=== PATIENT | male | born 1975 | race Two or more races ===

== ENCOUNTER 2023-12-24 20:19 | Inpatient (IN) | payer MEDICAID, OTHER ==
[~2023-12-24] VITALS: Ht 170.2 cm; Wt 100.2 kg
[2023-12-24 21:16] LABS: Basophils # (auto) 0.1 10 ^3/uL (0-0.2); Basophils % (auto) 1.4 % (0.0-2.0); Eosinophils # (auto) 0.1 10 ^3/uL (0-0.8); Eosinophils % (auto) 1.3 % (0.0-7.0); Hemoglobin 16.1 g/dL (13.5-17.5); Lymphocytes # (auto) 2.5 10 ^3/uL (0.4-5.4); Lymphocytes % (auto) 24.7 % (10.0-50.0); Mean Corpuscular Hemoglobin 31.4 pg (28.0-32.0); Mean Corpuscular Hgb Conc. 35.7 g/dL (32.0-36.0); Mean Corpuscular Volume 88.1 fL (80.0-100.0); Monocytes % (auto) 10.4 % (0.0-12.0); Neutrophils # (auto) 6.2 10 ^3/uL (1.6-8.6); Neutrophils % (auto) 62.2 % (37.0-80.0); Nucleated Red Blood Cells % 0.1 %; Platelet Count (auto) 318 10^3/uL (140-450); Red Blood Cells 5.11 10^6/uL (4.5-5.90); White Blood Cell 9.9 10^3/uL (4.4-10.8)
[2023-12-24 21:28] LABS: Chloride 101 mmol/L (98-107); Potassium 4.1 mmol/L (3.5-5.1); Sodium 133 mmol/L (136-145)
[2023-12-24 21:29] LABS: Anion Gap 8 (5-15); Carbon Dioxide 24 mmol/L (20-31)
[2023-12-24 21:30] LABS: Calcium 9.6 mg/dL (8.7-10.4)
[2023-12-24 21:34] LABS: BUN/Creatinine Ratio 8.8 (10.0-20.0); Blood Urea Nitrogen 9 mg/dL (9-23)
[2023-12-24] MEDS: ONDANSETRON HCL 4 MG/2 ML VIAL IV ONE (21:34)
[2023-12-24 21:47] LABS: Glucose 484 mg/dL (74-106)
[2023-12-24 21:54] LABS: Urine Bacteria None Seen /hpf (None Seen)
[2023-12-24 22:19] LABS: Urine Blood Negative /uL (Negative); Urine Clarity Clear (Clear); Urine Color Light-Yellow (Yellow); Urine Protein, UAD Negative (Negative); Urine Specific Gravity 1.032 (1.001-1.035); Urine Urobilinogen Normal (Negative); Urine WBC <1 /hpf (0 - 3)
[2023-12-24] MEDS: SODIUM CHLORIDE 0.9% 1,000 ML IV ONE (22:20)
[2023-12-24] MEDS: KETOROLAC TROMETH 30 MG/ML 1ML VIAL IV ONE (22:25)
[2023-12-24] MEDS ORDERED: MORPHINE SULFATE INJ 2 MG/ml SYRG IV PRN (23:15)
[2023-12-24] MEDS ORDERED: DEXTROSE (50%) 50ML SYRG IV PRN (23:15)
[2023-12-24] MEDS ORDERED: NITROGLYCERIN 0.4 MG SL TAB SL PRN (23:15)
[2023-12-24] MEDS ORDERED: VANCOMYCIN PER PHARMACY 0 MG IV SCH (23:15)
[2023-12-24] MEDS: VANCOMYCIN 1.5GM/300ML 300 ML IV ONE (23:36)
[2023-12-24] MEDS: InsuLIN REG 1unit/0.01ml Soln (100units/ml) IV ONE (23:37)
[2023-12-24] MEDS ORDERED: hydrALAZINE HCL 20 MG/ML VL IV PRN (23:45)
[2023-12-25 00:16] LABS: Amphetamine Screen, Urine Neg (NEGATIVE); Barbiturate Scree,Urine Neg (NEGATIVE); Benzodiazephine Screen, Urine Neg (NEGATIVE); Cannabinoid Screen, Urine Neg (NEGATIVE); Cocaine Screen, Urine Neg (NEGATIVE); Opiate Scree,Urine Neg (NEGATIVE); Phencyclidine Screen, Urine Neg (NEGATIVE)
[2023-12-25] MEDS: MORPHINE SULFATE INJ 2 MG/ml SYRG IV PRN (02:00)
[2023-12-25] MEDS: cefTRIAXone 1GM/50ML D5W 50 ML IV SCH (02:05)
[2023-12-25] MEDS: INSULIN LANTUS (GLARGINE) 1 /0.01ml (100units/ml) SC ONE ×2 (03:35→11:30)
[2023-12-25] MEDS: hydrALAZINE HCL 20 MG/ML VL IV PRN (03:35)
[2023-12-25 04:21] LABS: Basophils # (auto) 0.1 10 ^3/uL (0-0.2); Basophils % (auto) 0.9 % (0.0-2.0); Eosinophils # (auto) 0.2 10 ^3/uL (0-0.8); Eosinophils % (auto) 2.1 % (0.0-7.0); Hematocrit 42.1 % (41.0-53.0); Hemoglobin 14.7 g/dL (13.5-17.5); Lymphocytes % (auto) 22.9 % (10.0-50.0); Mean Corpuscular Hemoglobin 30.9 pg (28.0-32.0); Mean Corpuscular Hgb Conc. 34.9 g/dL (32.0-36.0); Mean Corpuscular Volume 88.4 fL (80.0-100.0); Monocytes % (auto) 11.8 % (0.0-12.0); Neutrophils # (auto) 5.5 10 ^3/uL (1.6-8.6); Neutrophils % (auto) 62.3 % (37.0-80.0); Platelet Count (auto) 275 10^3/uL (140-450); Red Blood Cells 4.76 10^6/uL (4.5-5.90); Red Cell Distribution Width 13.5 % (11.8-14.3); White Blood Cell 8.8 10^3/uL (4.4-10.8)
[2023-12-25 04:37] LABS: INR 1.04 (0.9-1.15); Partial Thromboplastin Time 28.3 SEC (24.5-34.5)
[2023-12-25 04:39] LABS: Alanine Aminotransferase 20 U/L (7-40); Alkaline Phosphatase 122 U/L (46-116); Anion Gap 9 (5-15); Aspartate Aminotransferase 13 U/L (13-40); BUN/Creatinine Ratio 12.5 (10.0-20.0); Bilirubin, Total 0.3 mg/dL (0.2-1.0); Blood Urea Nitrogen 11 mg/dL (9-23); Calcium 9.3 mg/dL (8.7-10.4); Carbon Dioxide 26 mmol/L (20-31); Chloride 100 mmol/L (98-107); Glucose 390 mg/dL (74-106); Sodium 135 mmol/L (136-145); Total Protein 6.9 g/dL (5.7-8.2)
[2023-12-25] MEDS: SODIUM CHLOR 0.9% PF (SALINE LOCK) 10ML VIAL/SYR IV SCH (06:19)
[2023-12-25] MEDS: ACCU-CHEK COMFORT CURVE STRIP VI SCH ×2 (06:30→11:32)
[2023-12-25] MEDS: InsuLIN REG 1unit/0.01ml Soln (100units/ml) SC SCH ×2 (06:37→11:31)
[2023-12-25] MEDS ORDERED: DEXTROSE (50%) 50ML SYRG IV PRN ×2 (07:15→07:45)
[2023-12-25 07:30] VITALS: PULSE 98; RESP 20; O2SAT 98
[2023-12-25] MEDS ORDERED: LISINOPRIL 5 MG TAB PO SCH (10:00)
[2023-12-25] MEDS: VANCOMYCIN 1GM/200ML PREMIX 200 ML IV SCH (10:35)
[2023-12-25] MEDS ORDERED: InsuLIN REG 1unit/0.01ml Soln (100units/ml) SC SCH ×3 (11:30→22:00)
[2023-12-25] MEDS ORDERED: ACCU-CHEK COMFORT CURVE STRIP VI SCH (11:30)
[2023-12-25] MEDS: CARVEDILOL 3.125 MG TAB PO SCH (11:31)
[2023-12-25] MEDS: HYDROcodone-ACET 5/325MG TAB PO PRN (13:09)
[2023-12-25] MEDS: LISINOPRIL 5 MG TAB PO SCH (13:26)
[2023-12-25] MEDS: FUROSEMIDE 20 MG/2 ML VIAL IV ONE (13:28)
[2023-12-25] MEDS: LISINOPRIL 5 MG TAB PO ONE (13:29)
[2023-12-25 17:27] VITALS: BP 155/101; PULSE 98; RESP 18; TEMP 98.3; O2SAT 95
[2023-12-25] MEDS ORDERED: CEPH500C PO (17:51)
[2023-12-25] MEDS ORDERED: IBUP1TAB5 PO (17:51)
[2023-12-25] MEDS ORDERED: ACET-6 PO (17:51)
[2023-12-25] MEDS ORDERED: CARV12.544 PO (18:25)
[2023-12-25] MEDS ORDERED: GLIP10TA9 PO (18:26)
[2023-12-25] MEDS ORDERED: METF-372 PO (18:26)
[2023-12-25] MEDS ORDERED: ASPI81CH59 PO (18:26)
[2023-12-25] MEDS ORDERED: IBUP-1454 PO (18:27)
[2023-12-25] MEDS ORDERED: EZET10TA22 PO (18:27)
[2023-12-25] MEDS ORDERED: TRAM50TA2 PO (18:27)
[2023-12-25] MEDS ORDERED: INSU1INJ19 SC (18:28)
[2023-12-25] MEDS ORDERED: NITR0.4S29 SL (18:32)
[2023-12-25] MEDS: amLODIPine BESYLATE 5 MG TAB PO ONE (19:38)
[2023-12-25 21:00] VITALS: BP 154/96; PULSE 76; RESP 18; TEMP 98.2; O2SAT 96
[2023-12-25] MEDS ORDERED: INSULIN LANTUS (GLARGINE) 1 /0.01ml (100units/ml) SC SCH (22:00)
[2023-12-25] MEDS: ATORVASTATIN 20 MG TAB PO SCH (22:43)
[2023-12-26] VITALS (8 sets, daily range): BP systolic 135–150; BP diastolic 89–101; PULSE 94–104; RESP 17–20; TEMP 97–98.6; O2SAT 95–97
[2023-12-26] MEDS: INSULIN LANTUS (GLARGINE) 1 /0.01ml (100units/ml) SC ONE (00:14)
[2023-12-26] MEDS: FUROSEMIDE 20 MG/2 ML VIAL IV SCH (05:43)
[2023-12-26 06:04] LABS: Anion Gap 7 (5-15); Carbon Dioxide 24 mmol/L (20-31); Chloride 106 mmol/L (98-107); Potassium 3.9 mmol/L (3.5-5.1); Sodium 137 mmol/L (136-145)
[2023-12-26 06:05] LABS: Calcium 9.3 mg/dL (8.7-10.4)
[2023-12-26 06:10] LABS: BUN/Creatinine Ratio 16.9 (10.0-20.0); Blood Urea Nitrogen 15 mg/dL (9-23)
[2023-12-26 06:28] LABS: Glucose 248 mg/dL (74-106)
[2023-12-26] MEDS: amLODIPine BESYLATE 5 MG TAB PO SCH (10:05)
[2023-12-26] MEDS: LISINOPRIL 20 MG TAB PO SCH (10:06)
[2023-12-26] MEDS: INSULIN LANTUS (GLARGINE) 1 /0.01ml (100units/ml) SC SCH ×2 (10:08→23:14)
[2023-12-26] MEDS: VANCOMYCIN 1.25GM/250ML 250 ML IV SCH (11:00)
[2023-12-26] MEDS: LABETALOL HCL 20 MG/4 ML VL IV PRN (14:02)
[2023-12-26] MEDS: SPIRONOLACTONE 25 MG TAB PO ONE (16:03)
[2023-12-26 18:18] LABS: Free T3 3.19 pg/mL (2.3-4.2)
[2023-12-26 18:19] LABS: Free T4 (Free Thyroxine) 0.98 ng/dL (0.89-1.76)
[2023-12-26] MEDS: FUROSEMIDE 20 MG TAB PO SCH (18:24)
[2023-12-26] MEDS: CARVEDILOL 3.125 MG TAB PO SCH (23:06)
[2023-12-27] VITALS (15 sets, daily range): BP systolic 107–145; BP diastolic 66–97; PULSE 84–103; RESP 12–22; TEMP 97.8–98.5; O2SAT 90–98
[2023-12-27 06:20] LABS: Basophils # (auto) 0.1 10 ^3/uL (0-0.2); Basophils % (auto) 0.6 % (0.0-2.0); Eosinophils # (auto) 0.2 10 ^3/uL (0-0.8); Eosinophils % (auto) 2.1 % (0.0-7.0); Hematocrit 46.2 % (41.0-53.0); Hemoglobin 15.8 g/dL (13.5-17.5); Lymphocytes # (auto) 2.2 10 ^3/uL (0.4-5.4); Lymphocytes % (auto) 22.5 % (10.0-50.0); Mean Corpuscular Hemoglobin 30.2 pg (28.0-32.0); Mean Corpuscular Hgb Conc. 34.2 g/dL (32.0-36.0); Mean Corpuscular Volume 88.2 fL (80.0-100.0); Monocytes # (auto) 1.3 10 ^3/uL (0-1.3); Monocytes % (auto) 13.8 % (0.0-12.0); Neutrophils # (auto) 5.9 10 ^3/uL (1.6-8.6); Nucleated Red Blood Cells % 0.1 %; Platelet Count (auto) 323 10^3/uL (140-450); Red Blood Cells 5.24 10^6/uL (4.5-5.90); Red Cell Distribution Width 13.3 % (11.8-14.3); White Blood Cell 9.7 10^3/uL (4.4-10.8)
[2023-12-27 06:43] LABS: Alanine Aminotransferase 20 U/L (7-40); Albumin 3.7 g/dL (3.2-4.8); Alkaline Phosphatase 101 U/L (46-116); Anion Gap 8 (5-15); Aspartate Aminotransferase 16 U/L (13-40); BUN/Creatinine Ratio 17.4 (10.0-20.0); Blood Urea Nitrogen 15 mg/dL (9-23); Calcium 9.3 mg/dL (8.7-10.4); Carbon Dioxide 26 mmol/L (20-31); Chloride 104 mmol/L (98-107); Glucose 248 mg/dL (74-106); Sodium 138 mmol/L (136-145)
[2023-12-27 06:44] LABS: Bilirubin, Total 0.4 mg/dL (0.2-1.0); Total Protein 6.7 g/dL (5.7-8.2)
[2023-12-27] MEDS: IODIXANOL 320MG/ML 100ML BTL IV ONE ×2 (08:59→10:06)
[2023-12-27] MEDS: HEPARIN SODIUM (PORCINE) 5000 UNITS/ML 1ML VIAL ONE (09:01)
[2023-12-27] MEDS: ANGIOMAX 250 MG VIAL IV ONE (09:01)
[2023-12-27] MEDS: VERAPAMIL 2.5MG/ML INJ 2ML VIAL IV ONE (09:01)
[2023-12-27] MEDS: SODIUM CHL 0.9% 0 ML ONE (09:02)
[2023-12-27] MEDS: LIDOCAINE 2%HCL (LOCAL ANESTH.) INJ 20ML MDV ONE (09:02)
[2023-12-27] MEDS: fentaNYL CITRATE 100 MCG/2 ML VL ONE (09:02)
[2023-12-27] MEDS: MIDAZOLAM HCL 2MG/2ML 2ml VIAL (1mg/ml) ONE ×2 (09:02→10:05)
[2023-12-27] MEDS: SPIRONOLACTONE 25 MG TAB PO SCH (10:00)
[2023-12-27] MEDS: HYDROmorphone HCL 2 MG/ML VL/or syr ONE (11:25)
[2023-12-27] MEDS: NITROGLYCERIN 0.4MG/HR TOPICAL PATCH TD ONE ×2 (11:27→11:30)
[2023-12-27] MEDS: HYDROmorphone HCL 2 MG/ML VL/or syr IV ONE (11:30)
[2023-12-27] MEDS: ONDANSETRON HCL 4 MG/2 ML VIAL IV PRN (12:02)
[2023-12-27] MEDS: ERGOCALCIFEROL 50,000 UNIT(1.25MG) CAP PO SCH (12:20)
[2023-12-27] MEDS: MORPHINE SULFATE INJ 2 MG/ml SYRG IV PRN (13:29)
[2023-12-27] MEDS: INSULIN LANTUS (GLARGINE) 1 /0.01ml (100units/ml) SC SCH (22:00)
[2023-12-28 05:00] VITALS: BP 133/73; PULSE 100; RESP 18; TEMP 99.2; O2SAT 94
[2023-12-28 05:54] LABS: Chloride 103 mmol/L (98-107); Potassium 4.2 mmol/L (3.5-5.1); Sodium 136 mmol/L (136-145)
[2023-12-28 05:55] LABS: Anion Gap 6 (5-15); Calcium 9.1 mg/dL (8.7-10.4); Carbon Dioxide 27 mmol/L (20-31)
[2023-12-28 06:00] LABS: Blood Urea Nitrogen 12 mg/dL (9-23); Glucose 225 mg/dL (74-106)
[2023-12-28 07:37] LABS: Basophils # (auto) 0.1 10 ^3/uL (0-0.2); Basophils % (auto) 0.6 % (0.0-2.0); Eosinophils # (auto) 0.1 10 ^3/uL (0-0.8); Eosinophils % (auto) 1.1 % (0.0-7.0); Hematocrit 43.1 % (41.0-53.0); Hemoglobin 14.7 g/dL (13.5-17.5); Lymphocytes % (auto) 18.1 % (10.0-50.0); Mean Corpuscular Hemoglobin 30.2 pg (28.0-32.0); Mean Corpuscular Hgb Conc. 34.2 g/dL (32.0-36.0); Mean Corpuscular Volume 88.2 fL (80.0-100.0); Monocytes # (auto) 1.4 10 ^3/uL (0-1.3); Monocytes % (auto) 12.7 % (0.0-12.0); Neutrophils # (auto) 7.5 10 ^3/uL (1.6-8.6); Neutrophils % (auto) 67.5 % (37.0-80.0); Platelet Count (auto) 319 10^3/uL (140-450); Red Blood Cells 4.88 10^6/uL (4.5-5.90); Red Cell Distribution Width 13.3 % (11.8-14.3); White Blood Cell 11.1 10^3/uL (4.4-10.8)
[2023-12-28 08:00] VITALS: PULSE 103; RESP 20; O2SAT 95
[2023-12-28 09:00] VITALS: BP 140/88; PULSE 103; RESP 16; TEMP 98; O2SAT 95
[2023-12-28] MEDS: ENOXAPARIN SOD 40 MG/0.4 ML SYRINGE SC SCH (10:00)
[2023-12-28] MEDS ORDERED: CLIN-203 PO (12:20)
[2023-12-28] MEDS ORDERED: FURO20TA4 PO (12:20)
[2023-12-28] MEDS ORDERED: EMPA1TAB PO (12:20)
[2023-12-28] MEDS ORDERED: LISI20TA56 PO (12:20)
[2023-12-28] MEDS ORDERED: ATOR20TA50 PO (12:20)
[2023-12-28] MEDS ORDERED: SPIR25TA PO (12:20)
[2023-12-28] MEDS ORDERED: ERGO1CAP23 PO (12:20)
[2023-12-28 13:00] VITALS: BP 147/94; PULSE 102; RESP 16; TEMP 98.2; O2SAT 93
[2023-12-28 17:00] VITALS: BP 121/72; PULSE 91; RESP 16; TEMP 98.3; O2SAT 95
[2023-12-28] MEDS ORDERED: ZOFR4T PO (17:26)
[2023-12-28] MEDS ORDERED: CARV12.544 PO (17:37)
[2023-12-28] MEDS ORDERED: INSLANTI SC (17:37)
[2023-12-28] MEDS ORDERED: METF-372 PO (17:37)
[2023-12-28] MEDS ORDERED: EZET10TA22 PO (17:37)
[2023-12-28] MEDS ORDERED: ASPI81CH59 PO (17:37)
[2023-12-28] MEDS ORDERED: GLIP10TA9 PO (17:37)
[2023-12-28] MEDS ORDERED: ACET-1882 PO (17:37)
[2023-12-28] MEDS ORDERED: CARV-214 PO (17:38)
[2023-12-28] MEDS: VANCOMYCIN 1.25GM/250ML 250 ML IV SCH (19:00)
[2023-12-28] MEDS: METOCLOPRAMIDE HCL 5MG/ml INJ 2ml VIAL IV ONE (19:38)
[2023-12-28] MEDS: ACETAMINOPHEN 325 MG TAB PO PRN (19:47)
[2023-12-29] MEDS ORDERED: EMPAGLIFLOZIN 10 MG TAB PO SCH (10:00)
== END 2023-12-28 20:40 | disposition home or self-care (01) | DRG 192 ==
LOC: ER 20:19 → OVERFLOW 23:12 → EAST 12-25 17:23 → TELE-E-ADS 12-27 05:54
PROVIDERS: ADMIT Internal Medicine; ATTEND Internal Medicine
PROC: 4A023N7 Measurement of Cardiac Sampling and Pressure, Left Heart, Percutaneous Approach (ICD-10-PCS; principal; 2023-12-27)
PROC: B211YZZ Fluoroscopy of Multiple Coronary Arteries using Other Contrast (ICD-10-PCS; 2023-12-27)
DX: I11.0 Hypertensive heart disease with heart failure (principal); I42.7 Cardiomyopathy due to drug and external agent; E87.1 Hypo-osmolality and hyponatremia; I15.9 Secondary hypertension, unspecified; L03.114 Cellulitis of left upper limb; E11.65 Type 2 diabetes mellitus with hyperglycemia; E66.9 Obesity, unspecified; I50.23 Acute on chronic systolic (congestive) heart failure; E78.5 Hyperlipidemia, unspecified; I16.1 Hypertensive emergency; M70.32 Other bursitis of elbow, left elbow; Z79.899 Other long term (current) drug therapy; Z80.7 Family history of other malignant neoplasms of lymphoid, hematopoietic and related tissues; Z82.49 Family history of ischemic heart disease and other diseases of the circulatory system; Z68.34 Body mass index [BMI] 34.0-34.9, adult
CPT/HCPCS: 36415; 71045; 73080; 73221; 76881; 80048; 80053; 80202; 80307; 81001; 82010; 82043; 82306; 82607; 82962; 83036; 83605; 83880; 83930; 84439; 84443; 84481; 84484; 85025; 85610; 85730; 86850; 86900; 86901; 87081; 93005; 93306; 93458; 99152; 99291; C1894; G0378; J1815; J1885; J2250; J2405; Q9967

== ENCOUNTER 2024-07-20 19:58 | Inpatient (IN) | payer MEDICAID ==
[~2024-07-20] VITALS: Ht 170.2 cm; Wt 107.3 kg
[2024-07-20] MEDS: IOHEXOL 300 MG/ML 100ML BOTTLE IJ ONE (04:47)
[~2024-07-20 19:58] MED LIST: ACET-1882 PO; ACET-6 PO; ASPI81CH59 PO; ATOR20TA50 PO; CARV-214 PO; CEPH500C PO; CLIN-203 PO; EMPA1TAB PO; ERGO1CAP23 PO; EZET10TA22 PO; FURO20TA4 PO; GLIP10TA9 PO; IBUP-1454 PO; IBUP1TAB5 PO; INSLANTI SC; INSU1INJ19 SC; LISI20TA56 PO; METF-372 PO; NITR0.4S29 SL; SPIR25TA PO; TRAM50TA2 PO; ZOFR4T PO
--- NOTE | 2024-07-20 20:30 | ED.PDOC ---
GI ASSESSMENT HPI Comments 48 year old male presents to the ED with a PMHx of DM, and HTN associated to the c/c of ABD pain. Pt states he has been having Diffuse Epigastric ABD pain for the past 3x months with no alleviating factors at this time. Pt states that he feels very bloated and notes his Abdomen is "rock hard" upon palpitation. Pt notes that he is unable to sleep because of the pain. Pt denies any other associated symptoms, modifiers, recent injuries or sick contacts present at this time. Time Seen by MD: 20:26 Reviewed Notes: Nurses Notes, Medications, Allergies Allergies: Coded Allergies: No Known Drug Allergy (Verified Allergy, Unknown, 12/24/23) Home Meds Active Scripts Carvedilol (COREG) 3.125 Mg Tab, 6.25 MG PO BID for 30 Days, #120 TAB Prov:CORRINE GRAHAM [facility] 12/28/23 Insulin Glargine (Lantus) 100 Unit/Ml Inj, 35 UNITS SC BID@1000,2200 for 30 Days, #1 INJ Prov:CORRINE GRAHAM [facility] 12/28/23 Acetaminophen (Acetaminophen) 325 Mg Tab, 325 MG PO Q4HP PRN for 7 Days, #35 TAB Prov:CORRINE GRAHAM [facility] 12/28/23 Ezetimibe (Zetia) 10 Mg Tab, 1 TAB PO DAILY, #30 TAB 5 Refills Prov:CORRINE GRAHAM [facility] 12/28/23 Metformin Hydrochloride (Metformin Hcl) 1,000 Mg Tab, 1 TAB PO BID, #60 TAB 5 Refills Prov:CORRINE GRAHAM [facility] 12/28/23 Aspirin (Aspirin Low Dose) 81 Mg Chw, 1 TAB PO DAILY for 30 Days, #30 TAB 3 Refills Prov:CORRINE GRAHAM [facility] 12/28/23 Glipizide (Glipizide) 10 Mg Tab, 1 TAB PO BID for 30 Days, #60 TAB 5 Refills Prov:CORRINE GRAHAM [facility] 12/28/23 Ondansetron Odt 4MG Tab (ZOFRAN PO) 4 Mg Tb, 4 MG PO QID PRN for 7 Days, #28 TAB ODT TAB-DISSOLVE IN MOUTH, THEN SWALLOW Prov:CORRINE GRAHAM [facility] 12/28/23 Clindamycin HCl (Clindamycin Hydrochloride) 300 Mg Cap, 300 MG PO QID for 7 Days, #28 CAP [facility] 12/28/23 Spironolactone (Aldactone) 25 Mg Tab, 25 MG PO DAILY for 30 Days, #30 TAB [facility] 12/28/23 Lisinopril (Lisinopril) 20 Mg Tab, 20 MG PO DAILY for 30 Days, #30 TAB [facility] 12/28/23 Furosemide (Furosemide) 20 Mg Tab, 20 MG PO BIDD for 30 Days, #60 TAB [facility] 12/28/23 Ergocalciferol (VITAMIN D 45547 UNIT) 50,000 [place], [address] UNIT PO Q7D for 30 Days, #30 CAP [facility] 12/28/23 Empagliflozin (Jardiance) 10 Mg Tab, 10 MG PO DAILY for 30 Days, #30 TAB [facility] 12/28/23 Atorvastatin Calcium (ATORVASTATIN CALCIUM) 20 Mg Tab, 40 MG PO HS for 30 Days, #60 TAB [facility] 12/28/23 Reported Medications Nitroglycerin (NTROSTAT SUBLINGUAL) 0.4 Mg Sl, 0.4 MG SL PRN, TAB *MAY REPEAT EVERY 5 MINUTES X 3 TOTAL IF NO RELIEF, INITIATE ANALGESIC THERAPY. NOTIFY PHYSICIAN *Do not crush. 12/25/23 Insulin Glargine (Basaglar Kwikpen) 100 Unit/Ml Inj, 100 UNIT SC, INJ 12/25/23 Ibuprofen (Ibuprofen) 600 Mg Tab, 1 TAB PO TID, #90 TAB 12/25/23 Tramadol Hcl (Tramadol Hcl) 50 Mg Tab, 50 MG PO, TAB 12/25/23 Ibuprofen Micronized (Ibuprofen) 600 Mg Tab, 1 TAB PO TID 12/25/23 Acetaminophen (Acetaminophen Extra Stren) 500 Mg Tab, PO 12/25/23 Cephalexin Monohydrate (Cephalexin) 500 Mg Cap, 1 CAP PO QID 12/25/23 Information Source: Patient Mode of Arrival: Ambulatory Timing: Months Duration: Since onset Prehospital treatment: None Quality: Aching, Burning, Cramping Vomitus: None Stool: Normal Severity: Moderate Recent: None Recent Hx of: Diabetes Pain Location: Diffuse, Epigastric Modifying Factors: Movement Associated sign and symptoms: Constipation, Abdominal Pain Past Medical History PAST MEDICAL HISTORY: DM, HTN Constitutional: denies: chills, diaphoresis, fatigue, fever, malaise, sweats, weakness, others EENTM: denies: blurred vision, double vision, ear bleeding, ear discharge, ear drainage, ear pain, ear ringing, eye pain, eye redness, hearing loss, mouth pain, mouth swelling, nasal discharge, nose bleeding, nose congestion, nose pain, photophobia, tearing, throat pain, throat swelling, voice changes, others Respiratory: denies: cough, hemoptysis, orthopnea, SOB at rest, shortness of breath, SOB with excertion, stridor, wheezing, others Cardiovascular: denies: chest pain, dizzy spells, diaphoresis, Dyspnea on exertion, edema, irregular heart beat, left arm pain, lightheadedness, palpitations, PND, syncope, others Gastrointestinal: reports: abdomen distended, abdominal pain; denies: blood streaked bowels, constipated, diarrhea, dysphagia, difficulty swallowing, hematemesis, melena, nausea, poor appetite, poor fluid intake, rectal bleeding, rectal pain, vomiting, others Genitourinary: denies: burning, dysuria, flank pain, frequency, hematuria, incontinence, penile discharge, penile sore, pain, testicle pain, testicle swelling, urgency, others Neurological: denies: dizziness, fainting, headache, left sided numbness, left sided weakness, numbness, paresthesia, pre-existing deficit, right sided numbness, right sided weakness, seizure, speech problems, tingling, tremors, weakness, others Musculoskeletal: denies: back pain, gout, joint pain, joint swelling, muscle pain, muscle stiffness, neck pain, others Integumetry: denies: bruises, change in color, change in hair/nails, dryness, laceration, lesions, lumps, rash, wounds, others Allergic/Immunocompromised: denies: Difficulty Healing, Frequent Infections, Hives, Itching, others Hematologic/Lymphatic: denies: anemia, blood clots, easy bleeding, easy bruising, swollen glands, others Endocrine: denies: excessive hunger, excessive sweating, excessive thirst, excessive urination, flushing, intolerance to cold, intolerance to heat, unexplained weight gain, unexplained weight loss, others Psychiatric: denies: anxiety, bipolar disorder, depression, hopeless, panic disorder, schizophrenia, sleepless, suicidal, others All Other Systems: Reviewed and Negative Physical Exam General Appearance: Mild Distress, Obese HEENT: Normal ENT Inspection, Pharynx Normal Neck: Full Range of Motion, Non-Tender, Normal Respiratory: Lungs Clear, No Respiratory Distress Cardiovascular: No JVD, No Gallop, Normal Peripheral Pulses Breast Exam: Deferred Gastrointestinal: Non Tender, Soft Genitalia: Deferred Pelvic: Deferred Rectal: Deferred Extremities: No calf tenderness, Normal range of motion, Non-tender Musculoskeletal : Apperance: Normal Neurologic: Alert, No Motor Deficits, Normal Mood, No Sensory Deficits Cerebellar Function: Normal Reflexes: Normal Skin: Dry, Normal Color, Warm Lymphatic: No Adenopathy Was a procedure done? Was a procedure done?: No GI differential Dx Differential Diagnosis: Cholangitis, Cholecystitis, Diverticular disease, Gastritis/PUD, Gastroenteritis, GI hemorrhage, Inflammatory BD, Pancreatitis, Urolithiasis, Kidney Stone, Other X-Ray, Labs, Meds, VS Vital Signs Date Time Temp Pulse Resp B/P (MAP) Pulse Ox O2 Delivery O2 Flow Rate FiO2 07/20/24 20:50 97.8 110 18 192/122 (145) 97 97.8 Lab Test 07/20/24 21:15 07/20/24 20:49 07/20/24 20:34 Range/Units Troponin I High Sensitivity 13 13 </=54 ng/L Urine Color Yellow Yellow Urine Clarity Clear Clear Urine pH 6.0 5.0-9.0 Urine Specific [place] 1.034 1.001-1.035 Urine Protein Trace H Negative Urine Ketones Trace Negative Urine Blood Negative Negative /uL Urine Nitrite Negative Negative Urine Bilirubin Negative Negative Urine Urobilinogen 2 H Negative mg/dL Urine Leukocyte Esterase Negative Negative /uL Urine RBC 1 0 - 3 /hpf Urine Microscopic WBC 1 0-3 /HPF Urine Squamous Epithelial Cells Few <5 /hpf Urine Bacteria None seen None Seen /hpf Urine Mucus Few None Seen Urine Glucose 2+ H Normal mg/dL White Blood Count 10.0 4.4-10.8 10^3/uL Red Blood Count 5.38 4.5-5.90 10^6/uL Hemoglobin 16.2 13.5-17.5 g/dL Hematocrit 45.1 41.0-53.0 % Mean Corpuscular Volume 83.7 80.0-100.0 fL Mean Corpuscular Hemoglobin 30.1 28.0-32.0 pg Mean Corpuscular Hemoglobin Concent 36.0 32.0-36.0 g/dL Red Cell Distribution Width 14.0 11.8-14.3 % Platelet Count 273 140-450 10^3/uL Mean Platelet Volume 8.5 6.9-10.8 fL Neutrophils (%) (Auto) 60.3 37.0-80.0 % Lymphocytes (%) (Auto) 25.7 10.0-50.0 % Monocytes (%) (Auto) 10.8 0.0-12.0 % Eosinophils (%) (Auto) 2.7 0.0-7.0 % Basophils (%) (Auto) 0.5 0.0-2.0 % Neutrophils # (Auto) 6.0 1.6-8.6 10 ^3/uL Lymphocytes # (Auto) 2.6 0.4-5.4 10 ^3/uL Monocytes # (Auto) 1.1 0-1.3 10 ^3/uL Eosinophils # (Auto) 0.3 0-0.8 10 ^3/uL Basophils # (Auto) 0 0-0.2 10 ^3/uL Nucleated Red Blood Cells 4.7 % Platelet Estimate Adequate Sodium Level 143 136-145 mmol/L Potassium Level 3.0 L 3.5-5.1 mmol/L Chloride Level 106 98-107 mmol/L Carbon Dioxide Level 27 20-31 mmol/L Anion Gap 10 5-15 Blood Urea Nitrogen 13 9-23 mg/dL Creatinine 0.89 0.700-1.30 mg/dL Glomerular Filtration Rate Calc 106 >90 mL/min BUN/Creatinine Ratio 14.6 10.0-20.0 Serum Glucose 148 H 74-106 mg/dL Calcium Level 9.6 8.7-10.4 mg/dL Total Bilirubin 0.7 0.2-1.0 mg/dL Aspartate Amino Transferase (AST) 28 13-40 U/L Alanine Aminotransferase (ALT) 47 H 7-40 U/L Alkaline Phosphatase 79 46-116 U/L Total Protein 7.4 5.7-8.2 g/dL Albumin 4.6 3.2-4.8 g/dL Lipase 37 12-53 U/L PATIENT: EULOGIO LAUGHLIN ACCT: [id number] UNIT: [id number] : 1975 LOC: ER ROOM / BED: / AGE / SEX: 48 / M ADM STATUS: REG ER SERVICE 24 ORDERING PHYSICIAN: ZULEYKA MENDES MD PROCEDURE(s): ABPLIV - CT AB PEL WITH IV CON ONLY REASON: abd pain ORDER NUMBER(s): [id number], ACCESSION NUMBER(s): [id number] CLINICAL HISTORY: abd pain TECHNIQUE: CT of the abdomen and pelvis was performed with intravenous contrast. 100 mL Omnipaque 300 injected This exam was performed according to our departmental dose optimization program. Up-to-date CT equipment and radiation dose reduction techniques are utilized as appropriate. CTDIVol: 24.84+ 0.14 mGy DLP: 1515.79 mGy-cm WID: COMPARISON: None FINDINGS: Lower Thorax: Linear bibasilar scarring or atelectasis. Mild cardiomegaly. Liver and Biliary system: Mild hepatic steatosis. Otherwise unremarkable. Spleen: Unremarkable. Adrenal Glands and Kidneys: Unremarkable. Pancreas and Retroperitoneum: Mild pancreatic atrophy. No retroperitoneal lymphadenopathy. Aorta and Major Vessels: Aortoiliac vessels are patent and normal caliber Bowel, Mesentery and Peritoneal space: Normal caliber small and large bowel. Normal appendix. No free air or fluid collection. Pelvis: Unremarkable. Abdominal wall and Osseous Structures: Small fat containing umbilical hernia. Multilevel lower thoracic and lumbar spondylosis. Moderate degenerative disc space narrowing at L5-S1. Moderate degenerative bilateral neural foraminal stenosis at L5-S1. No destructive osseous lesion. IMPRESSION: 1. No bowel obstruction, fluid collection, or free air. Normal appendix. 2. Mild hepatic steatosis. 3. Mild cardiomegaly. 4. Multilevel lumbar spondylosis. Moderate degenerative disc space narrowing at L5-S1 and moderate degenerative bilateral neural foraminal stenosis at L5-S1. Time of 1ST Reevaluation: 20:57 Reevaluation 1ST: Unchanged Patient Education/Counseling: Diagnosis, Treatment Family Education/Counseling: No Family Present Departure 1 Departure Time of Disposition: 02:25 Impression: Primary Impression: Upper abdominal pain Disposition: 01 HOME / SELF CARE / HOMELESS Condition: Stable Discharged With: Self Critical Care Note Critical Care Time?: No Stability Stability form required: No Heart Score Heart Score: Heart Score Response (Comments) Value History N/A 0 EKG N/A 0 Age N/A 0 Risk Factors N/A 0 Troponin N/A 0 Total 0 I personally scribed for ZULEYKA MENDES MD ([email or web address]) on 07/20/24 at 20:30. Electronically submitted by Anshul Blair ([email or web address]). I personally scribed for ZULEYKA MENDES MD ([email or web address]) on 07/21/24 at 01:31. Electronically submitted by Anshul Blair ([email or web address]). ZULEYKA MENDES MD July 20, 2024 20:30
[2024-07-20 20:57] LABS: Albumin 4.6 g/dL (3.2-4.8); Alkaline Phosphatase 79 U/L (46-116); Anion Gap 10 (5-15); Aspartate Aminotransferase 28 U/L (13-40); BUN/Creatinine Ratio 14.6 (10.0-20.0); Bilirubin, Total 0.7 mg/dL (0.2-1.0); Blood Urea Nitrogen 13 mg/dL (9-23); Calcium 9.6 mg/dL (8.7-10.4); Carbon Dioxide 27 mmol/L (20-31); Chloride 106 mmol/L (98-107); Lipase 37 U/L (12-53); Sodium 143 mmol/L (136-145); Total Protein 7.4 g/dL (5.7-8.2)
[2024-07-20 20:58] LABS: Alanine Aminotransferase 47 U/L (7-40); Basophils # (auto) 0 10 ^3/uL (0-0.2); Basophils % (auto) 0.5 % (0.0-2.0); Eosinophils # (auto) 0.3 10 ^3/uL (0-0.8); Eosinophils % (auto) 2.7 % (0.0-7.0); Glucose 148 mg/dL (74-106); Hematocrit 45.1 % (41.0-53.0); Hemoglobin 16.2 g/dL (13.5-17.5); Lymphocytes # (auto) 2.6 10 ^3/uL (0.4-5.4); Lymphocytes % (auto) 25.7 % (10.0-50.0); Mean Corpuscular Hemoglobin 30.1 pg (28.0-32.0); Mean Corpuscular Volume 83.7 fL (80.0-100.0); Monocytes # (auto) 1.1 10 ^3/uL (0-1.3); Monocytes % (auto) 10.8 % (0.0-12.0); Neutrophils % (auto) 60.3 % (37.0-80.0); Platelet Count (auto) 273 10^3/uL (140-450); Red Blood Cells 5.38 10^6/uL (4.5-5.90)
[2024-07-20 20:59] LABS: Nucleated Red Blood Cells % 4.7 %
[2024-07-20 21:34] LABS: Platelet Estimate Adequate
[2024-07-20 22:28] LABS: Urine Bacteria None Seen /hpf (None Seen)
[2024-07-20 22:48] LABS: Urine Blood Negative /uL (Negative); Urine Clarity Clear (Clear); Urine Color Yellow (Yellow); Urine Mucus FEW (None Seen); Urine Protein, UAD TRACE (Negative); Urine Specific Gravity 1.034 (1.001-1.035); Urine Squamous Epithelial Cell FEW /hpf (<5); Urine Urobilinogen 2 mg/dL (Negative); Urine WBC 1 /HPF (0-3)
--- NOTE | 2024-07-21 01:25 | DVH ---
CLINICAL HISTORY: abd pain TECHNIQUE: CT of the abdomen and pelvis was performed with intravenous contrast. 100 mL Omnipaque 300 injected This exam was performed according to our departmental dose optimization program. Up-to-date CT equipment and radiation dose reduction techniques are utilized as appropriate. CTDIVol: 24.84+ 0.14 mGy DLP: 1515.79 mGy-cm WID: COMPARISON: None FINDINGS: Lower Thorax: Linear bibasilar scarring or atelectasis. Mild cardiomegaly. Liver and Biliary system: Mild hepatic steatosis. Otherwise unremarkable. Spleen: Unremarkable. Adrenal Glands and Kidneys: Unremarkable. Pancreas and Retroperitoneum: Mild pancreatic atrophy. No retroperitoneal lymphadenopathy. Aorta and Major Vessels: Aortoiliac vessels are patent and normal caliber Bowel, Mesentery and Peritoneal space: Normal caliber small and large bowel. Normal appendix. No free air or fluid collection. Pelvis: Unremarkable. Abdominal wall and Osseous Structures: Small fat containing umbilical hernia. Multilevel lower thorac ic and lumbar spondylosis. Moderate degenerative disc space narrowing at L5-S1. Moderate degenerativ e bilateral neural foraminal stenosis at L5-S1. No destructive osseous lesion. IMPRESSION: 1. No bowel obstruction, fluid collection, or free air. Normal appendix. 2. Mild hepatic steatosis. 3. Mild cardiomegaly. 4. Multilevel lumbar spondylosis. Moderate degenerative disc space narrowing at L5-S1 and moderate d egenerative bilateral neural foraminal stenosis at L5-S1.
[2024-07-21 04:39] VITALS: PULSE 96; RESP 22; O2SAT 98
[2024-07-21] MEDS: POTASSIUM CHL 20 Meq TABLET PO ONE (04:47)
[2024-07-21] MEDS: ONDANSETRON HCL 4 MG/2 ML VIAL IV ONE (04:48)
[2024-07-21] MEDS: SODIUM CHLORIDE 0.9% 1,000 ML IVB ONE (04:48)
[2024-07-21] MEDS: MORPHINE SULFATE 4 MG/ML SYR/VIAL IV ONE (04:48)
[2024-07-21] MEDS ORDERED: ACETAMINOPHEN 325 MG TAB PO PRN (05:15)
[2024-07-21] MEDS ORDERED: ONDANSETRON HCL 4 MG/2 ML VIAL IV PRN (05:15)
[2024-07-21] MEDS ORDERED: MORPHINE SULFATE INJ 2 MG/ml SYRG IV PRN (05:15)
[2024-07-21] MEDS ORDERED: DOCUSATE SOD 100 MG CAP PO PRN (05:15)
[2024-07-21] MEDS ORDERED: DEXTROSE (50%) 50ML SYRG IV PRN (05:15)
[2024-07-21] MEDS ORDERED: NITROGLYCERIN 0.4 MG SL TAB SL PRN (05:15)
--- NOTE | 2024-07-21 05:33 | DVHHP2 ---
History of Present Illness Reason for Visit: Acute abdominal pain History of Present Illness The patient is a 48-year-old male with past medical history of diabetes mellitus and hypertension who presented to [facility] ED with complaint of acute abdominal pain for the past 3 months. Patient reports he has been exp eriencing upper abdominal pain, associated with nausea, vomiting, bloating, distended, palpitation, getting worse that prompted this visit. Patient was seen and evaluated in the ED, laboratory data shows WBC 10.0, platelets 273, sodium 143, potassium 3.0, BUN 13, creatinine 0.89, glucose 148, troponin 13, lipase 37, blood pressure 192/112 trending down to 150/89, heart rate 88, temperature 97.8 F, O2 saturation 98% on room air. Abdomen/pelvis CT revealing mild cardiomegaly, mild hepatic steatosis, multilevel lumbar spondylosis, moderate degenerative disc space narrowing at L5-S1 a moderate degenerative bilateral neural foraminal stenosis at L5-S1. Patient was given morphine sulfate 4 mg IV x1, please see medication orders section in the computer. On my assessment, patient denies chest pain, no headache, no dizziness, no diaphoresis, no shortness of breaths, no nausea, no vomiting, no diarrhea, no fever, no chills. Patient was admitted for further evaluation and medical management. Past Medical History Diabetes Mellitus, Hypertension Past Surgical History No surgical history on file Family History Reviewed, noncontributory to the management of this case. Past Social History The patient lives at home, denies smoking, alcohol or illicit drugs abuse. Review of Systems Constitutional: No: Fever, Chills, Sweats, Weakness, Malaise, Other Eyes: No: Pain, Vision change, Conjunctivae inflammation, Eyelid inflammation, Other, Redness ENT: No: Ear pain, Ear discharge, Nose pain, Nose discharge, Nose congestion, Mouth pain, Mouth swelling, Throat pain, Throat swelling, Other Respiratory: No: Cough, Dry, Shortness of breath, SOB with excertion, Wheezing, Hemoptysis, Pleuritic Pain, Sputum, Wheezing, Other Cardiovascular: No: Chest Pain, Palpitations, Orthopnea, Paroxysmal Noc. Dyspnea, Edema, Lt Headedness, Other Gastrointestinal: Nausea, Vomiting, Abdominal Pain, Other (Distended abdomen); No: Diarrhea, Constipation, Melena, Hematochezia Genitourinary: No Dysuria, No Frequency, No Incontinence, No Hematuria, No Retention, No Other Musculoskeletal: No: other, neck pain, shoulder pain, arm pain, back pain, hand pain, leg pain, foot pain Skin: No: Rash, Lesions, Jaundice, Bruising, Other Neurological: No: Weakness, Numbness, Incoordination, Change in speech, Confusion, Seizures, Other Allergies: Coded Allergies: No Known Drug Allergy (Verified Allergy, Unknown, 12/24/23) Exam Vital Signs Vital Signs Date Time Temp Pulse Resp B/P (MAP) Pulse Ox O2 Delivery O2 Flow Rate FiO2 07/21/24 04:48 95 22 188/127 07/21/24 04:39 98 Room Air* 0 21 07/20/24 20:50 97.8 97.8 General Appearance: Alert, Oriented X3, Cooperative, No acute distress HEENT: Atraumatic, PERRLA, EOMI, Mucous membr. moist/pink Respiratory: Clear to auscultation, Normal air movement Cardiovascular: Regular rate, Normal S1, Normal S2, No murmurs Abdominal: Normal bowel sounds, Soft, No hepatospenomegaly, No masses, Other (Reports tenderness) Extremities: No clubbing, No cyanosis, No edema, Normal pulses, No tenderness/swelling Skin: No rashes, No breakdown, No significant lesion Neuro: Normal gait, Normal speech, Strength at 5/5 X4 ext, Normal tone, Sensation intact, Cranial nerves 3-12 NL, Reflexes 2+ Psych/Mental Status: Mental status NL, Mood NL Labs/Xrays Labs Test 07/20/24 21:15 07/20/24 20:49 07/20/24 20:34 Range/Units Troponin I High Sensitivity 13 </=54 ng/L Urine Color Yellow Yellow Urine Clarity Clear Clear Urine pH 6.0 5.0-9.0 Urine Specific [place] 1.034 1.001-1.035 Urine Protein Trace H Negative Urine Ketones Trace Negative Urine Blood Negative Negative /uL Urine Nitrite Negative Negative Urine Bilirubin Negative Negative Urine Urobilinogen 2 H Negative mg/dL Urine Leukocyte Esterase Negative Negative /uL Urine RBC 1 0 - 3 /hpf Urine Microscopic WBC 1 0-3 /HPF Urine Squamous Epithelial Cells Few <5 /hpf Urine Bacteria None seen None Seen /hpf Urine Mucus Few None Seen Urine Glucose 2+ H Normal mg/dL White Blood Count 10.0 4.4-10.8 10^3/uL Red Blood Count 5.38 4.5-5.90 10^6/uL Hemoglobin 16.2 13.5-17.5 g/dL Hematocrit 45.1 41.0-53.0 % Mean Corpuscular Volume 83.7 80.0-100.0 fL Mean Corpuscular Hemoglobin 30.1 28.0-32.0 pg Mean Corpuscular Hemoglobin Concent 36.0 32.0-36.0 g/dL Red Cell Distribution Width 14.0 11.8-14.3 % Platelet Count 273 140-450 10^3/uL Mean Platelet Volume 8.5 6.9-10.8 fL Neutrophils (%) (Auto) 60.3 37.0-80.0 % Lymphocytes (%) (Auto) 25.7 10.0-50.0 % Monocytes (%) (Auto) 10.8 0.0-12.0 % Eosinophils (%) (Auto) 2.7 0.0-7.0 % Basophils (%) (Auto) 0.5 0.0-2.0 % Neutrophils # (Auto) 6.0 1.6-8.6 10 ^3/uL Lymphocytes # (Auto) 2.6 0.4-5.4 10 ^3/uL Monocytes # (Auto) 1.1 0-1.3 10 ^3/uL Eosinophils # (Auto) 0.3 0-0.8 10 ^3/uL Basophils # (Auto) 0 0-0.2 10 ^3/uL Nucleated Red Blood Cells 4.7 % Platelet Estimate Adequate Sodium Level 143 136-145 mmol/L Potassium Level 3.0 L 3.5-5.1 mmol/L Chloride Level 106 98-107 mmol/L Carbon Dioxide Level 27 20-31 mmol/L Anion Gap 10 5-15 Blood Urea Nitrogen 13 9-23 mg/dL Creatinine 0.89 0.700-1.30 mg/dL Glomerular Filtration Rate Calc 106 >90 mL/min BUN/Creatinine Ratio 14.6 10.0-20.0 Serum Glucose 148 H 74-106 mg/dL Calcium Level 9.6 8.7-10.4 mg/dL Total Bilirubin 0.7 0.2-1.0 mg/dL Aspartate Amino Transferase (AST) 28 13-40 U/L Alanine Aminotransferase (ALT) 47 H 7-40 U/L Alkaline Phosphatase 79 46-116 U/L Total Protein 7.4 5.7-8.2 g/dL Albumin 4.6 3.2-4.8 g/dL Lipase 37 12-53 U/L PATIENT: EULOGIO LAUGHLIN ACCT: [id number] UNIT: [id number] : 1975 LOC: ER ROOM / BED: / AGE / SEX: 48 / M ADM STATUS: REG ER SERVICE 24 ORDERING PHYSICIAN: ZULEYKA MENDES MD PROCEDURE(s): ABPLIV - CT AB PEL WITH IV CON ONLY REASON: abd pain ORDER NUMBER(s): [id number], ACCESSION NUMBER(s): [id number] CLINICAL HISTORY: abd pain TECHNIQUE: CT of the abdomen and pelvis was performed with intravenous contrast. 100 mL Omnipaque 300 injected This exam was performed according to our departmental dose optimization program. Up-to-date CT equipment and radiation dose reduction techniques are utilized as appropriate. CTDIVol: 24.84+ 0.14 mGy DLP: 1515.79 mGy-cm WID: COMPARISON: None FINDINGS: Lower Thorax: Linear bibasilar scarring or atelectasis. Mild cardiomegaly. Liver and Biliary system: Mild hepatic steatosis. Otherwise unremarkable. Spleen: Unremarkable. Adrenal Glands and Kidneys: Unremarkable. Pancreas and Retroperitoneum: Mild pancreatic atrophy. No retroperitoneal lymphadenopathy. Aorta and Major Vessels: Aortoiliac vessels are patent and normal caliber Bowel, Mesentery and Peritoneal space: Normal caliber small and large bowel. Normal appendix. No free air or fluid collection. Pelvis: Unremarkable. Abdominal wall and Osseous Structures: Small fat containing umbilical hernia. Multilevel lower thoracic and lumbar spondylosis. Moderate degenerative disc space narrowing at L5-S1. Moderate degenerative bilateral neural foraminal stenosis at L5-S1. No destructive osseous lesion. IMPRESSION: 1. No bowel obstruction, fluid collection, or free air. Normal appendix. 2. Mild hepatic steatosis. 3. Mild cardiomegaly. 4. Multilevel lumbar spondylosis. Moderate degenerative disc space narrowing at L5-S1 and moderate degenerative bilateral neural foraminal stenosis at L5-S1. Assessment/Plan Assessment/Plan Acute abdominal pain Hypertensive urgency Hypokalemia Diabetes mellitus with hyperglycemia Plan 1. Admit to telemetry unit 2. Breathing treatment 3. Pain control management 4. Management of fluids and electrolytes 5. Consultation for hospitalist 6. Diagnostic tests abdomen/pelvis CT 7. DVT prophylaxis-on SCDs 8. Repeat labs CBC, CMP in a.m. 9. Continue with current medical management 10. Treatment plan discussed with patient and RN. Patient verbalized understanding. Plan discussed with: Patient, Other (RN) Problem List: (1) Acute abdominal pain (2) Hypertensive urgency (3) Hypokalemia (4) Diabetes mellitus with hyperglycemia Date of Service: July 21, 2024 Billing Provider: ILIANA KEITH DNP Common Visit Codes: [id number] INP/OBS CARE (HIGH) ILIANA KEITH DNP July 21, 2024 05:33
[2024-07-21 05:57] LABS: Basophils # (auto) 0.1 10 ^3/uL (0-0.2); Eosinophils # (auto) 0.3 10 ^3/uL (0-0.8); Eosinophils % (auto) 2.8 % (0.0-7.0); Hematocrit 43.9 % (41.0-53.0); Hemoglobin 15.6 g/dL (13.5-17.5); Lymphocytes # (auto) 2.1 10 ^3/uL (0.4-5.4); Lymphocytes % (auto) 23.3 % (10.0-50.0); Mean Corpuscular Hemoglobin 29.9 pg (28.0-32.0); Mean Corpuscular Hgb Conc. 35.5 g/dL (32.0-36.0); Mean Corpuscular Volume 84.2 fL (80.0-100.0); Monocytes % (auto) 11.2 % (0.0-12.0); Neutrophils # (auto) 5.6 10 ^3/uL (1.6-8.6); Neutrophils % (auto) 61.7 % (37.0-80.0); Nucleated Red Blood Cells % 0.1 %; Platelet Count (auto) 256 10^3/uL (140-450); Red Blood Cells 5.22 10^6/uL (4.5-5.90); White Blood Cell 9.1 10^3/uL (4.4-10.8)
[2024-07-21 06:08] VITALS: BP 201/129; PULSE 94; RESP 18; TEMP 98.2; O2SAT 94
[2024-07-21] MEDS: amLODIPine BESYLATE 5 MG TAB PO ONE (06:21)
[2024-07-21] MEDS: InsuLIN REG 1unit/0.01ml Soln (100units/ml) SC SCH ×2 (06:24→23:33)
[2024-07-21] MEDS: SODIUM CHLOR 0.9% PF (SALINE LOCK) 10ML VIAL/SYR IV SCH (06:25)
[2024-07-21] MEDS: ACCU-CHEK COMFORT CURVE STRIP VI SCH (06:25)
[2024-07-21 06:37] LABS: Albumin 4.4 g/dL (3.2-4.8); Alkaline Phosphatase 74 U/L (46-116); Anion Gap 9 (5-15); Aspartate Aminotransferase 26 U/L (13-40); BUN/Creatinine Ratio 17.3 (10.0-20.0); Blood Urea Nitrogen 13 mg/dL (9-23); Carbon Dioxide 28 mmol/L (20-31); Chloride 106 mmol/L (98-107); Sodium 143 mmol/L (136-145); Total Protein 7.1 g/dL (5.7-8.2)
[2024-07-21 06:38] LABS: Alanine Aminotransferase 42 U/L (7-40); Bilirubin, Total 0.7 mg/dL (0.2-1.0); Calcium 8.7 mg/dL (8.7-10.4); Glucose 154 mg/dL (74-106); Potassium 3.2 mmol/L (3.5-5.1)
[2024-07-21] MEDS ORDERED: TIRZ2.5I SC (06:40)
[2024-07-21] MEDS: HYDROcodone-ACET 5/325MG TAB PO PRN (06:56)
[2024-07-21] MEDS: FUROSEMIDE 20 MG/2 ML VIAL IV SCH (08:10)
[2024-07-21] MEDS: amLODIPine BESYLATE 5 MG TAB PO SCH (08:11)
[2024-07-21] MEDS: ASPirin 81 mg TAB PO SCH (08:11)
[2024-07-21] MEDS: LISINOPRIL 20 MG TAB PO SCH (08:11)
[2024-07-21] MEDS: CARVEDILOL 3.125 MG TAB PO SCH (08:13)
[2024-07-21 08:29] VITALS: BP 205/127; PULSE 92; RESP 13; TEMP 98.3; O2SAT 95
[2024-07-21] MEDS: hydrALAZINE HCL 20 MG/ML VL IV PRN (09:34)
--- NOTE | 2024-07-21 13:24 | DVHSR ---
APPROVED REPORT EXAM: Two-dimensional and M-mode echocardiogram with Doppler and color Doppler. Blood Pressure: 201/129 mmHg INDICATION History of CHF RISK FACTORS Height: 67, Weight: 236 DIMENSIONS LVDd5.8 (3.8-5.7cm)LA (2D)4.6 (1.9-4.0cm)Aortic Root3.4 (2.0-3.7cm) LVDs4.9 (2.5-4.0cm)LA (MM) (1.9-4.0cm)Aortic Cusp Exc1.8 (1.5-2.0cm) EF (%) 32.0 (55-70%)Rt. Atrium4.6 (1.9-4.0cm)Asc. Aorta3.2 cm IVSd1.2 (0.7-1.1cm)RV (D) (1.8-2.4cm) PWd1.7 (0.7-1.1cm) Mitral Valve MitralMitral Stenosis E wave0.89m/sMV Mean GR.mmHg A wave0.52m/sMV Peak GR.115mmHg E/A ratio1.72D MVAcm2 DECEL [id number] 1/2 [place] Aortic Valve Aortic ValveAortic Stenosis V10.65m/[place] Mean GR.2mmHg V20.93m/[place] Peak GR.3mmHg LVOT Diameter2.2 (1.8-2.4cm)Doppler AVA2.66cm2 Pulmonic Valve V20.57m/s Other Information Technically limited study due to body habitus. Conclusion Left ventricle: Mild concentric left ventricle hypertrophy was seen. Left ventricle was dilated. L V EF was 30-35%. Moderate diffuse hypokinesis of left ventricular seen. Pseudo normal LV filling wa s observed. Right ventricle was dilated with normal systolic function. Both atria were mildly dilated. Aortic valve: Aortic valve was trileaflet. There was no aortic insufficiency disease denies cyanosis . There was mild mitral regurgitation. There was no tricuspid regurgitation. There was mild pulmon jose r valve insufficiency. As there was no good tricuspid regurgitation jet, right ventricular systolic pressure could not be es timated. There was trace pericardial effusion.
[2024-07-21] MEDS ORDERED: POLYETHYLENE GLYCOL 17 GM PWDR PO PRN (18:00)
[2024-07-21] MEDS ORDERED: SENNA 8.6 MG TAB PO PRN (18:00)
[2024-07-21 20:02] VITALS: BP 170/114; PULSE 91; RESP 18; TEMP 98; O2SAT 96
[2024-07-21] MEDS: MORPHINE SULFATE INJ 2 MG/ml SYRG IV PRN (20:13)
[2024-07-21] MEDS: LACTULOSE 20Gm/30ML SOLN PO PRN (20:22)
[2024-07-21 20:43] VITALS: BP 168/112; PULSE 95; RESP 15
[2024-07-21] MEDS: ATORVASTATIN 20 MG TAB PO SCH (21:03)
== END 2024-07-21 21:50 | disposition left against medical advice (07) | DRG 199 ==
LOC: ER 20:08 → OVERFLOW 07-21 05:13
PROVIDERS: ADMIT Nurse Practitioner Family; ATTEND Nurse Practitioner Family
DX: I16.0 Hypertensive urgency (principal); K76.0 Fatty (change of) liver, not elsewhere classified; E11.65 Type 2 diabetes mellitus with hyperglycemia; Z53.29 Procedure and treatment not carried out because of patient's decision for other reasons; R10.9 Unspecified abdominal pain; E87.6 Hypokalemia; I10 Essential (primary) hypertension; Z79.1 Long term (current) use of non-steroidal anti-inflammatories (NSAID); Z79.4 Long term (current) use of insulin; Z79.84 Long term (current) use of oral hypoglycemic drugs; Z79.82 Long term (current) use of aspirin; Z79.899 Other long term (current) drug therapy
CPT/HCPCS: 36415; 80053; 81001; 82962; 83690; 83880; 84484; 85025; 93306; 96361; 96374; G0378; J1815; J2405

== ENCOUNTER 2024-07-29 11:58 | Inpatient (IN) | payer MEDICAID ==
[~2024-07-29] VITALS: Ht 170.2 cm; Wt 106.0 kg
[~2024-07-29 11:58] MED LIST changes: -CEPH500C PO; -CLIN-203 PO; -EZET10TA22 PO; -IBUP-1454 PO; -IBUP1TAB5 PO; -METF-372 PO; -SPIR25TA PO; +TIRZ2.5I SC
--- NOTE | 2024-07-29 12:12 | ED.PDOC ---
History of Present Illness HPI Comments 48-year-old male with PMHx DM, CHF, HTN presents with a chief complaint of abdominal pain x 3 months with associated distention and diarrhea. Patient states that he was seen here x 1 week ago, was admitted, and then AMA'd due to the wait. Patient mentions that he is having the same symptoms as before, but no w the pain is diffuse in his abdomen, radiates to his flanks, and rates his pain a 10/10 burning sensation. Patient reports that he is having diarrhea because his PMD gave him laxatives thinking it was constipation. Time Seen by MD: 12:04 Reviewed Notes: Nurses Notes, Medications, Allergies Allergies: Coded Allergies: No Known Drug Allergy (Verified Allergy, Unknown, 12/24/23) Home Meds Active Scripts Carvedilol (COREG) 3.125 Mg Tab, 6.25 MG PO BID for 30 Days, #120 TAB Prov:CORRINE GRAHAM 12/28/23 Insulin Glargine (Lantus) 100 Unit/Ml Inj, 35 UNITS SC BID@1000,2200 for 30 Days, #1 INJ Prov:CORRINE GRAHAM [facility] 12/28/23 Acetaminophen (Acetaminophen) 325 Mg Tab, 325 MG PO Q4HP PRN for 7 Days, #35 TAB Prov:CORRINE GRAHAM [facility] 12/28/23 Aspirin (Aspirin Low Dose) 81 Mg Chw, 1 TAB PO DAILY for 30 Days, #30 TAB 3 Refills Prov:CORRINE GRAHMA 12/28/23 Glipizide (Glipizide) 10 Mg Tab, 1 TAB PO BID for 30 Days, #60 TAB 5 Refills Prov:CORRINE GRAHAM 12/28/23 Ondansetron Odt 4MG Tab (ZOFRAN PO) 4 Mg Tb, 4 MG PO QID PRN for 7 Days, #28 TAB ODT TAB-DISSOLVE IN MOUTH, THEN SWALLOW Prov:CORRINE GRAHAM 12/28/23 Lisinopril (Lisinopril) 20 Mg Tab, 20 MG PO DAILY for 30 Days, #30 TAB Prov:CORRINE GRAHAM 12/28/23 Furosemide (Furosemide) 20 Mg Tab, 20 MG PO BIDD for 30 Days, #60 TAB Prov:CORRINE GRAHAM 12/28/23 Ergocalciferol (VITAMIN D 16923 UNIT) 50,000 [place], [address] UNIT PO Q7D for 30 Days, #30 CAP Prov:CORRINE GRAHAM RESIDENT 12/28/23 Empagliflozin (Jardiance) 10 Mg Tab, 10 MG PO DAILY for 30 Days, #30 TAB Prov:CORRINE GRAHAM 12/28/23 Atorvastatin Calcium (ATORVASTATIN CALCIUM) 20 Mg Tab, 40 MG PO HS for 30 Days, #60 TAB Prov:CORRINE GRAHAM [facility] 12/28/23 Reported Medications Tirzepatide (Mounjaro) 2.5 Mg/0.5 Ml Inj, 2.5 MG SC QWEEKLY, INJ 07/21/24 Nitroglycerin (NTROSTAT SUBLINGUAL) 0.4 Mg Sl, 0.4 MG SL PRN, TAB *MAY REPEAT EVERY 5 MINUTES X 3 TOTAL IF NO RELIEF, INITIATE ANALGESIC THERAPY. NOTIFY PHYSICIAN *Do not crush. 12/25/23 Insulin Glargine (Basaglar Kwikpen) 100 Unit/Ml Inj, 100 UNIT SC, INJ 12/25/23 Tramadol Hcl (Tramadol Hcl) 50 Mg Tab, 50 MG PO, TAB 12/25/23 Acetaminophen (Acetaminophen Extra Stren) 500 Mg Tab, PO 12/25/23 Information Source: Patient Mode of Arrival: Ambulatory Severity: Moderate Timing: Months Duration: Since onset Prehospital treatment: None Past Medical History PAST MEDICAL HISTORY: CHF, DM, HTN Surgical History: Denies all surgeries Family History Family History: Reviewed,noncontributory to illness Social History Smoker: Non-Smoker Alcohol: Denies ETOH Use Drugs: Denies Drug Use Lives In: Home Constitutional: denies: chills, diaphoresis, fatigue, fever, malaise, sweats, weakness, others EENTM: denies: blurred vision, double vision, ear bleeding, ear discharge, ear drainage, ear pain, ear ringing, eye pain, eye redness, hearing loss, mouth pain, mouth swelling, nasal discharge, nose bleeding, nose congestion, nose pain, photophobia, tearing, throat pain, throat swelling, voice changes, others Respiratory: denies: cough, hemoptysis, orthopnea, SOB at rest, shortness of breath, SOB with excertion, stridor, wheezing, others Cardiovascular: denies: chest pain, dizzy spells, diaphoresis, Dyspnea on ex ertion, edema, irregular heart beat, left arm pain, lightheadedness, palpitations, PND, syncope, others Gastrointestinal: reports: abdomen distended, abdominal pain, diarrhea; denies: blood streaked bowels, constipated, dysphagia, difficulty swallowing, hematemesis, melena, nausea, poor appetite, poor fluid intake, rectal bleeding, rectal pain, vomiting, others Genitourinary: denies: burning, dysuria, flank pain, frequency, hematuria, incontinence, penile discharge, penile sore, pain, testicle pain, testicle swelling, urgency, others Neurological: denies: dizziness, fainting, headache, left sided numbness, left sided weakness, numbness, paresthesia, pre-existing deficit, right sided numbness, right sided weakness, seizure, speech problems, tingling, tremors, weakness, others Musculoskeletal: denies: back pain, gout, joint pain, joint swelling, muscle pain, muscle stiffness, neck pain, others Integumetry: denies: bruises, change in color, change in hair/nails, dryness, laceration, lesions, lumps, rash, wounds, others Allergic/Immunocompromised: denies: Difficulty Healing, Frequent Infections, Hives, Itching, others Hematologic/Lymphatic: denies: anemia, blood clots, easy bleeding, easy bruising, swollen glands, others Endocrine: denies: excessive hunger, excessive sweating, excessive thirst, excessive urination, flushing, intolerance to cold, intolerance to heat, unexplained weight gain, unexplained weight loss, others Psychiatric: denies: anxiety, bipolar disorder, depression, hopeless, panic disorder, schizophrenia, sleepless, suicidal, others All Other Systems: Reviewed and Negative Physical Exam General Appearance: Moderate Distress HEENT: Normal ENT Inspection, Pharynx Normal, TMs Normal Neck: Full Range of Motion, Non-Tender, Normal, Normal Inspection Respiratory: Chest Non-Tender, Lungs Clear, No Accessory Muscle Use, No Respiratory Distress, Normal Breath Sounds Cardiovascular: No Edema, No JVD, No Murmur, No Gallop, Normal Peripheral Pulses, Regular Rate/Rhythm Breast Exam: Deferred Gastrointestinal: Diffuse, Distended, No Organomegaly, No Pulsatile Mass, Normal Bowel Sounds, Soft, Tenderness Genitalia: Deferred Pelvic: Deferred Rectal: Deferred Extremities: No calf tenderness, Normal capillary refill, Normal inspection, Normal range of motion, Non-tender, No pedal edema Musculoskeletal : Apperance: Normal Neurologic: Alert, flat bed operator II-XII nml as Tested, Motor Weakness, Normal Affect, Normal Mood, No Sensory Deficits Cerebellar Function: Normal Reflexes: Normal Skin: Dry, Normal Color, Warm Lymphatic: No Adenopathy Was a procedure done? Was a procedure done?: No Differential Dx Considerations may include: Gallstones, appendicitis, bowel obstruction, generalized weakness X-Ray, Labs, Meds, VS Vital Signs Date Time Temp Pulse Resp B/P (MAP) Pulse Ox O2 Delivery O2 Flow Rate FiO2 07/29/24 14:02 100 17 183/111 07/29/24 12:52 101 07/29/24 12:40 104 20 248/128 07/29/24 12:35 103 16 Room Air* 0 21 07/29/24 12:26 97.9 109 16 195/130 (151) 98 97.9 Lab Test 07/29/24 12:42 Range/Units White Blood Count 8.5 4.4-10.8 10^3/uL Red Blood Count 5.15 4.5-5.90 10^6/uL Hemoglobin 15.7 13.5-17.5 g/dL Hematocrit 43.2 41.0-53.0 % Mean Corpuscular Volume 83.8 80.0-100.0 fL Mean Corpuscular Hemoglobin 30.4 28.0-32.0 pg Mean Corpuscular Hemoglobin Concent 36.3 H 32.0-36.0 g/dL Red Cell Distribution Width 14.3 11.8-14.3 % Platelet Count 249 140-450 10^3/uL Mean Platelet Volume 8.5 6.9-10.8 fL Neutrophils (%) (Auto) 60.9 37.0-80.0 % Lymphocytes (%) (Auto) 23.5 10.0-50.0 % Monocytes (%) (Auto) 11.9 0.0-12.0 % Eosinophils (%) (Auto) 2.3 0.0-7.0 % Basophils (%) (Auto) 1.4 0.0-2.0 % Neutrophils # (Auto) 5.2 1.6-8.6 10 ^3/uL Lymphocytes # (Auto) 2.0 0.4-5.4 10 ^3/uL Monocytes # (Auto) 1.0 0-1.3 10 ^3/uL Eosinophils # (Auto) 0.2 0-0.8 10 ^3/uL Basophils # (Auto) 0.1 0-0.2 10 ^3/uL Nucleated Red Blood Cells 0.2 % Sodium Level 140 136-145 mmol/L Potassium Level 3.3 L 3.5-5.1 mmol/L Chloride Level 110 H 98-107 mmol/L Carbon Dioxide Level 20 20-31 mmol/L Anion Gap 10 5-15 Blood Urea Nitrogen 11 9-23 mg/dL Creatinine 0.78 0.700-1.30 mg/dL Glomerular Filtration Rate Calc 110 >90 mL/min BUN/Creatinine Ratio 14.1 10.0-20.0 Serum Glucose 239 H 74-106 mg/dL Calcium Level 8.6 L 8.7-10.4 mg/dL Total Bilirubin 1.0 0.2-1.0 mg/dL Aspartate Amino Transferase (AST) 26 13-40 U/L Alanine Aminotransferase (ALT) 33 7-40 U/L Alkaline Phosphatase 75 46-116 U/L Total Protein 6.8 5.7-8.2 g/dL Albumin 4.2 3.2-4.8 g/dL Lipase 40 12-53 U/L Current Medications Medications (Trade) Dose Ordered Sig/Jorge Route Start Time Stop Time Status Last Admin Ondansetron HCl (Zofran) 4 mg ONCE ONCE IV 07/29/24 12:15 07/29/24 12:16 DC 07/29/24 12:31 Morphine Sulfate 4 mg ONCE ONCE IV 07/29/24 12:15 07/29/24 12:16 DC 07/29/24 12:40 Pantoprazole Sodium (Protonix) 40 mg ONCE ONCE IV 07/29/24 12:15 07/29/24 12:16 DC 07/29/24 12:31 Abdomen/Pelvis CT Scan Impression: No acute abdominal or pelvic finding. IV Hep-Lock was established. The patient was given Zofran 4 mg IV push for the vomiting The patient was given morphine 4 mg IV push with the pain apply the patient was given Protonix 40 mg IV push new line the patient's CBC is within normal limits to on the chemistry panel shows hypokalemia 3.3 new line the patient has been admitted with a diagnosis of intractable abdominal pain Images Reviewed?: Images reviewed and evaluated by me Time of 1ST Reevaluation: 12:34 Reevaluation 1ST: Improved Patient Education/Counseling: Diagnosis, Treatment, Prognosis Family Education/Counseling: No Family Present Departure 1 Departure Time of Disposition: 14:34 Impression: Primary Impression: Intractable abdominal pain Additional Impression: Hypertensive urgency Disposition: ADMITTED INPATIENT Admit to: Med Surg Condition: Fair Critical Care Note Critical Care Time?: No Stability Stability form required: Yes Unstable for transfer: ED Physician Assesment (Clinical assesment) Heart Score Heart Score: Heart Score Response (Comments) Value History N/A 0 EKG N/A 0 Age N/A 0 Risk Factors N/A 0 Troponin N/A 0 Total 0 I personally scribed for OUMAR ZARCO MD ([email or web address]) on 07/29/24 at 12:12. Electronically submitted by Ja Rico ([email or web address]). I personally scribed for OUMAR ZARCO MD ([email or web address]) on 07/29/24 at 13:17. Electronically submitted by Ja Rico [email or web address]). OUMAR ZARCO MD Jul 29, 2024 12:12
[2024-07-29] MEDS: PANTOPRAZOLE 40 MG/10 ML VIAL INJ IV ONE (12:31)
[2024-07-29] MEDS: ONDANSETRON HCL 4 MG/2 ML VIAL IV ONE (12:31)
[2024-07-29 12:35] VITALS: PULSE 103; RESP 16
[2024-07-29] MEDS: MORPHINE SULFATE 4 MG/ML SYR/VIAL IV ONE (12:40)
--- NOTE | 2024-07-29 12:44 | DVH ---
Exam: CT CT AB PEL WO CON-NO ORAL OR IV History: pain Comparison Study: None TECHNIQUE: Multidetector CT of the abdomen was performed from lung bases to pubic symphysis. Imaging was performed without IV contrast. Axial, coronal and sagittal multiplanar reformats were obtained fr om the axial data set by the technologist. Radiation Dose Information: CT Dose: CTDI volume is 21.25 mGy. Dose-length product is 1361.43 mGy*cm FINDINGS: Evaluation of solid organs is limited due to lack of intravenous contrast use. Findings: Lung Bases: No acute or significant lung base finding. Normal heart size. No pleural or pericardial effusion. Liver: The liver is normal in size. No focal lesions. Gallbladder and Biliary Tree: Unremarkable Spleen: Unremarkable Pancreas: The pancreas is grossly normal in appearance. Adrenal Glands: Unremarkable Kidneys: Kidneys are grossly normal without calculi or hydronephrosis. Bladder: Grossly unremarkable for degree of distention. Bowel: The stomach is grossly normal in appearance. Small bowel and colon are normal in caliber and d istribution. Normal appendix. Ascites: Absent Lymphadenopathy: No mesenteric, retroperitoneal or periportal lymphadenopathy. Abdominal Wall and Mesentery: Unremarkable. Vasculature: The visualized abdominal aorta is normal in size and caliber. Evaluation of abdominal a nd pelvic vessels is limited due to lack of intravenous contrast. Pelvic Organs: Unremarkable Musculoskeletal: No aggressive focal bony lesions, acute fractures or dislocation. Soft tissues: Unremarkable IMPRESSION: No acute abdominal or pelvic finding. Radiation optimization: All CT scans at this facility use at least one of these dose optimization john hniques: automated exposure control mA and/or kV adjustment per patient size (includes targeted exam s where dose is matched to clinical indication) or iterative reconstruction.
[2024-07-29 12:56] LABS: Basophils # (auto) 0.1 10 ^3/uL (0-0.2); Basophils % (auto) 1.4 % (0.0-2.0); Eosinophils # (auto) 0.2 10 ^3/uL (0-0.8); Eosinophils % (auto) 2.3 % (0.0-7.0); Hematocrit 43.2 % (41.0-53.0); Hemoglobin 15.7 g/dL (13.5-17.5); Lymphocytes % (auto) 23.5 % (10.0-50.0); Mean Corpuscular Hemoglobin 30.4 pg (28.0-32.0); Mean Corpuscular Hgb Conc. 36.3 g/dL (32.0-36.0); Mean Corpuscular Volume 83.8 fL (80.0-100.0); Monocytes % (auto) 11.9 % (0.0-12.0); Neutrophils # (auto) 5.2 10 ^3/uL (1.6-8.6); Neutrophils % (auto) 60.9 % (37.0-80.0); Nucleated Red Blood Cells % 0.2 %; Platelet Count (auto) 249 10^3/uL (140-450); Red Blood Cells 5.15 10^6/uL (4.5-5.90); Red Cell Distribution Width 14.3 % (11.8-14.3); White Blood Cell 8.5 10^3/uL (4.4-10.8)
[2024-07-29 13:16] LABS: Alanine Aminotransferase 33 U/L (7-40); Albumin 4.2 g/dL (3.2-4.8); Alkaline Phosphatase 75 U/L (46-116); Anion Gap 10 (5-15); Aspartate Aminotransferase 26 U/L (13-40); BUN/Creatinine Ratio 14.1 (10.0-20.0); Blood Urea Nitrogen 11 mg/dL (9-23); Calcium 8.6 mg/dL (8.7-10.4); Carbon Dioxide 20 mmol/L (20-31); Chloride 110 mmol/L (98-107); Glucose 239 mg/dL (74-106); Lipase 40 U/L (12-53); Potassium 3.3 mmol/L (3.5-5.1); Sodium 140 mmol/L (136-145); Total Protein 6.8 g/dL (5.7-8.2)
[2024-07-29 15:04] LABS: Urine Bacteria None Seen /hpf (None Seen)
--- NOTE | 2024-07-29 15:12 | DVHHP2 ---
History of Present Illness Reason for Visit: Hypertensive urgency History of Present Illness The patient is a 48-year-old male with past medical history of CHF, HLD, hypertension, and diabetes mellitus who presented to [facility] ED with complaint of abdominal pain for the past 3 months. Patient states that he was seen here x 1 week ago, was admitted, and then AMA'd due to the wait. Patient reports symptoms progressively get worse with abdominal distention, diarrhea, diffuse abdominal pain radiating to his flanks, burning sensation, rating 10/10 numeric scale, getting worse that prompted this visit. Patient was seen and evaluated in the ED, laboratory data shows WBC 8.5, platelets 249, sodi um 140, potassium 3.3, BUN 11, creatinine 0.78, glucose 239, calcium 8.6, blood pressure 195/130 trending down to 146/91, heart rate 100, temperature 97.9 F, O2 saturation 98% on room air. bdomen/pelvis CT showed no acute abdominal or pelvic findings. Patient was given hydralazine 10 mg IV x1, please see medication orders section in the computer. On my assessment, patient denied c hest pain, no headache, no dizziness, no diaphoresis, no shortness of breath, no diarrhea, no nausea, no vomiting, no fever, no chills. Patient was admitted for further evaluation and medical management. Past Medical History CHF, DM, HTN, HLD Past Surgical History Denies all surgeries Family History Reviewed, noncontributory to the management of this case. Past Social History The patient lives at home, denies smoking, alcohol or illicit drugs abuse. Review of Systems Constitutional: No: Fever, Chills, Sweats, Weakness, Malaise, Other Eyes: No: Pain, Vision change, Conjunctivae inflammation, Eyelid inflammation, Other, Redness ENT: No: Ear pain, Ear discharge, Nose pain, Nose discharge, Nose congestion, Mouth pain, Mouth swelling, Throat pain, Throat swelling, Other Respiratory: No: Cough, Dry, Shortness of breath, SOB with excertion, Wheezing, Hemoptysis, Pleuritic Pain, Sputum, Wheezing, Other Cardiovascular: No: Chest Pain, Palpitations, Orthopnea, Paroxysmal Noc. Dyspnea, Edema, Lt Headedness, Other Gastrointestinal: Abdominal Pain, Diarrhea, Other (abdomen distended); No: Nausea, Vomiting, Constipation, Melena, Hematochezia Genitourinary: No Dysuria, No Frequency, No Incontinence, No Hematuria, No Retention, No Other Musculoskeletal: No: other, neck pain, shoulder pain, arm pain, back pain, hand pain, leg pain, foot pain Skin: No: Rash, Lesions, Jaundice, Bruising, Other Neurological: No: Weakness, Numbness, Incoordination, Change in speech, Confusion, Seizures, Other Allergies: Coded Allergies: No Known Drug Allergy (Verified Allergy, Unknown, 12/24/23) Exam Vital Signs Vital Signs Date Time Temp Pulse Resp B/P (MAP) Pulse Ox O2 Delivery O2 Flow Rate FiO2 07/29/24 14:02 100 17 183/111 07/29/24 12:35 Room Air* 0 21 07/29/24 12:26 97.9 98 97.9 General Appearance: Alert, Oriented X3, Cooperative, No acute distress HEENT: Atraumatic, PERRLA, EOMI, Mucous membr. moist/pink Respiratory: Clear to auscultation, Normal air movement Cardiovascular: Regular rate, Normal S1, Normal S2, No murmurs Abdominal: Normal bowel sounds, Soft, No hepatospenomegaly, No masses, Other (Reports tenderness) Extremities: No clubbing, No cyanosis, No edema, Normal pulses, No tenderness/swelling Skin: No rashes, No breakdown, No significant lesion Neuro: Normal gait, Normal speech, Strength at 5/5 X4 ext, Normal tone, Sensation intact, Cranial nerves 3-12 NL, Reflexes 2+ Psych/Mental Status: Mental status NL, Mood NL Labs/Xrays Labs Test 07/29/24 15:02 07/29/24 12:42 Range/Units White Blood Count 8.5 4.4-10.8 10^3/uL Red Blood Count 5.15 4.5-5.90 10^6/uL Hemoglobin 15.7 13.5-17.5 g/dL Hematocrit 43.2 41.0-53.0 % Mean Corpuscular Volume 83.8 80.0-100.0 fL Mean Corpuscular Hemoglobin 30.4 28.0-32.0 pg Mean Corpuscular Hemoglobin Concent 36.3 H 32.0-36.0 g/dL Red Cell Distribution Width 14.3 11.8-14.3 % Platelet Count 249 140-450 10^3/uL Mean Platelet Volume 8.5 6.9-10.8 fL Neutrophils (%) (Auto) 60.9 37.0-80.0 % Lymphocytes (%) (Auto) 23.5 10.0-50.0 % Monocytes (%) (Auto) 11.9 0.0-12.0 % Eosinophils (%) (Auto) 2.3 0.0-7.0 % Basophils (%) (Auto) 1.4 0.0-2.0 % Neutrophils # (Auto) 5.2 1.6-8.6 10 ^3/uL Lymphocytes # (Auto) 2.0 0.4-5.4 10 ^3/uL Monocytes # (Auto) 1.0 0-1.3 10 ^3/uL Eosinophils # (Auto) 0.2 0-0.8 10 ^3/uL Basophils # (Auto) 0.1 0-0.2 10 ^3/uL Nucleated Red Blood Cells 0.2 % Sodium Level 140 136-145 mmol/L Potassium Level 3.3 L 3.5-5.1 mmol/L Chloride Level 110 H 98-107 mmol/L Carbon Dioxide Level 20 20-31 mmol/L Anion Gap 10 5-15 Blood Urea Nitrogen 11 9-23 mg/dL Creatinine 0.78 0.700-1.30 mg/dL Glomerular Filtration Rate Calc 110 >90 mL/min BUN/Creatinine Ratio 14.1 10.0-20.0 Serum Glucose 239 H 74-106 mg/dL Calcium Level 8.6 L 8.7-10.4 mg/dL Total Bilirubin 1.0 0.2-1.0 mg/dL Aspartate Amino Transferase (AST) 26 13-40 U/L Alanine Aminotransferase (ALT) 33 7-40 U/L Alkaline Phosphatase 75 46-116 U/L Total Protein 6.8 5.7-8.2 g/dL Albumin 4.2 3.2-4.8 g/dL Lipase 40 12-53 U/L PATIENT: EULOGIO LAUGHLIN ACCT: [id number] UNIT: [id number] : 1975 LOC: ER ROOM / BED: / AGE / SEX: 48 / M ADM STATUS: REG ER SERVICE 1207 ORDERING PHYSICIAN: OUMAR ZARCO MD PROCEDURE(s): ABPL - CT AB PEL WO CON-NO ORAL OR IV REASON: pain ORDER NUMBER(s): [id number], ACCESSION NUMBER(s): [id number] Exam: CT CT AB PEL WO CON-NO ORAL OR IV History: pain Comparison Study: None TECHNIQUE: Multidetector CT of the abdomen was performed from lung bases to pubic symphysis. Imaging was performed without IV contrast. Axial, coronal and sagittal multiplanar reformats were obtained from the axial data set by the technologist. Radiation Dose Information: CT Dose: CTDI volume is 21.25 mGy. Dose-length product is 1361.43 mGy*cm FINDINGS: Evaluation of solid organs is limited due to lack of intravenous contrast use. Findings: Lung Bases: No acute or significant lung base finding. Normal heart size. No pleural or pericardial effusion. Liver: The liver is normal in size. No focal lesions. Gallbladder and Biliary Tree: Unremarkable Spleen: Unremarkable Pancreas: The pancreas is grossly normal in appearance. Adrenal Glands: Unremarkable Kidneys: Kidneys are grossly normal without calculi or hydronephrosis. Bladder: Grossly unremarkable for degree of distention. Bowel: The stomach is grossly normal in appearance. Small bowel and colon are normal in caliber and distribution. Normal appendix. Ascites: Absent Lymphadenopathy: No mesenteric, retroperitoneal or periportal lymphadenopathy. Abdominal Wall and Mesentery: Unremarkable. Vasculature: The visualized abdominal aorta is normal in size and caliber. Evaluation of abdominal and pelvic vessels is limited due to lack of intravenous contrast. Pelvic Organs: Unremarkable Musculoskeletal: No aggressive focal bony lesions, acute fractures or dislocation. Soft tissues: Unremarkable IMPRESSION: No acute abdominal or pelvic finding. Assessment/Plan Assessment/Plan Intractable abdominal pain Hypertensive urgency Plan 1. Admit to telemetry unit 2. Breathing treatment 3. Pain control management 4. Management of fluids and electrolytes 5. Consultation for hospitalist 6. Diagnostic tests abdomen/pelvis CT 7. DVT prophylaxis on aspirin 8. Repeat labs CBC, CMP in a.m. 9. Continue with current medical management 10. Treatment plan discussed with patient and RN. Patient verbalized understanding. Plan discussed with: Patient, Other (RN) My Orders Orders - ILIANA KEITH DNP Procedure Category Date Status Time Aspirin Tablet PHA 07/30/24 Verified 10:00 Atorvastatin (Lipitor) PHA 07/29/24 Verified 22:00 Consistent DIET 07/29/24 Verified Carb(Ccho)Diabetes Dinner B-Type Natriuretic LAB 07/29/24 Verified Peptide 15:04 Furosemide Injection PHA 07/30/24 Verified (Lasix Injection) 10:00 Carvedilol Tablet PHA 07/29/24 Verified (Coreg Tablet) 22:[address] [facility] 07/29/24 Verified (Apresoline Inject 15:[address] [facility] 07/30/24 Verified (Zestril Tablet) 10:[address] [facility] 07/29/24 Verified (Accu-Chek Comfort 17:00 Bedtime Insulin Scale PHA 07/29/24 Verified 22:00 Moderate Insulin Ss PHA 07/29/24 Verified 17:00 Dextrose 50% Syringe PHA 07/29/24 Verified 15:15 Admit ADMIT 07/29/24 Verified 15:04 Allergies JASWANT 07/29/24 Verified 15:04 Code Status CODE 07/29/24 Verified 15:[address] [facility] 07/29/24 Verified (Saline Lock Ns) 22:00 Oxygen Per Hour RT 07/29/24 Verified 15:04 Hydrocodone-Acet [facility] 07/29/24 Verified 5/325mg Tab ([place] 15:[address] [facility] 07/29/24 Verified (Zofran) 15:[address] [facility] 07/29/24 Verified Capsule (Colace 15:15 Complete Blood Count LAB 07/30/24 Verified 04:00 Comprehensive LAB 07/30/24 Verified Metabolic Panel 04:00 Condition: Serious [facility] 07/29/24 Verified 15:[address] [facility] 07/29/24 Verified (Tylenol Tablet) 15:15 Bedrest With Bathroom [facility] 07/29/24 Verified Privileg 15:04 Sequential [facility] 07/29/24 Verified Compression Device Nitroglycerin [facility] 07/29/24 Verified Sublingual (Ntrostat 15:[address] [facility] 07/29/24 Verified Injection 15:15 Stat Ekg For Chest [facility] 07/29/24 Verified Pain 15:04 Notify Md Of Changes [facility] 07/29/24 Verified From Base 15:04 [employer] Business Analyst For [facility] 07/29/24 Verified 24 Hours 15:04 Emergency Dysrhythmia [facility] 07/29/24 Verified Protocol 15:04 Rhythm Strips Once [facility] 07/29/24 Verified Every Shift 15:04 Oxygen By Nasal RT 07/29/24 Verified Cannula 15:04 Problem List: (1) Intractable abdominal pain (2) Hypertensive urgency Date of Service: Jul 29, 2024 Billing Provider: ILIANA KEITH DNP Common Visit Codes: [id number] INP/OBS CARE (HIGH) ILIANA KEITH DNP Jul 29, 2024 15:12
[2024-07-29] MEDS ORDERED: ACETAMINOPHEN 325 MG TAB PO PRN (15:15)
[2024-07-29] MEDS ORDERED: DEXTROSE (50%) 50ML SYRG IV PRN (15:15)
[2024-07-29] MEDS ORDERED: NITROGLYCERIN 0.4 MG SL TAB SL PRN (15:15)
[2024-07-29 15:28] LABS: Urine Blood TRACE /uL (Negative); Urine Clarity Turbid (Clear); Urine Color Yellow (Yellow); Urine Mucus FEW (None Seen); Urine Protein, UAD 1+ (Negative); Urine Specific Gravity 1.031 (1.001-1.035); Urine Squamous Epithelial Cell FEW /hpf (<5); Urine Urobilinogen Normal (Negative); Urine WBC 47 /HPF (0-3); Urine pH 5.5 (5.0-9.0)
[2024-07-29] MEDS: HYDROcodone-ACET 5/325MG TAB PO PRN (15:37)
[2024-07-29] MEDS: hydrALAZINE HCL 20 MG/ML VL IV PRN (15:37)
[2024-07-29] MEDS: ACCU-CHEK COMFORT CURVE STRIP VI SCH (17:18)
[2024-07-29] MEDS: POTASSIUM CHL 20 Meq TABLET PO ONE (17:20)
[2024-07-29] MEDS: InsuLIN REG 1unit/0.01ml Soln (100units/ml) SC SCH ×2 (17:20→21:41)
[2024-07-29] MEDS: MORPHINE SULFATE 4 MG/ML SYR/VIAL ONE (19:02)
[2024-07-29] MEDS: MORPHINE SULFATE INJ 2 MG/ml SYRG IV PRN (19:03)
[2024-07-29 19:44] VITALS: PULSE 106; RESP 20; O2SAT 96
[2024-07-29] MEDS: ATORVASTATIN 20 MG TAB PO SCH (21:39)
[2024-07-29] MEDS: CARVEDILOL 12.5 MG TAB PO SCH (21:40)
[2024-07-29] MEDS: SODIUM CHLOR 0.9% PF (SALINE LOCK) 10ML VIAL/SYR IV SCH (21:43)
[2024-07-30] VITALS (7 sets, daily range): BP systolic 137–165; BP diastolic 88–104; PULSE 89–95; RESP 14–20; TEMP 97.4–98.4; O2SAT 94–98
[2024-07-30] MEDS: KETOROLAC TROMETH 30 MG/ML 1ML VIAL IV ONE (04:00)
[2024-07-30] MEDS: ONDANSETRON HCL 4 MG/2 ML VIAL IV PRN (04:47)
[2024-07-30 06:06] LABS: Basophils # (auto) 0.1 10 ^3/uL (0-0.2); Basophils % (auto) 0.9 % (0.0-2.0); Eosinophils # (auto) 0.3 10 ^3/uL (0-0.8); Eosinophils % (auto) 3.4 % (0.0-7.0); Hematocrit 43.4 % (41.0-53.0); Hemoglobin 15.4 g/dL (13.5-17.5); Lymphocytes # (auto) 2.1 10 ^3/uL (0.4-5.4); Mean Corpuscular Hemoglobin 30.3 pg (28.0-32.0); Mean Corpuscular Hgb Conc. 35.4 g/dL (32.0-36.0); Mean Corpuscular Volume 85.5 fL (80.0-100.0); Monocytes % (auto) 12.3 % (0.0-12.0); Neutrophils # (auto) 4.6 10 ^3/uL (1.6-8.6); Neutrophils % (auto) 57.4 % (37.0-80.0); Nucleated Red Blood Cells % 5.9 %; Platelet Count (auto) 245 10^3/uL (140-450); Red Blood Cells 5.08 10^6/uL (4.5-5.90); Red Cell Distribution Width 14.3 % (11.8-14.3)
[2024-07-30 06:15] LABS: Alanine Aminotransferase 31 U/L (7-40); Alkaline Phosphatase 71 U/L (46-116); Anion Gap 9 (5-15); BUN/Creatinine Ratio 14.9 (10.0-20.0); Blood Urea Nitrogen 13 mg/dL (9-23); Calcium 9.1 mg/dL (8.7-10.4); Carbon Dioxide 26 mmol/L (20-31); Chloride 105 mmol/L (98-107); Potassium 3.9 mmol/L (3.5-5.1); Sodium 140 mmol/L (136-145); Total Protein 6.7 g/dL (5.7-8.2)
[2024-07-30 06:16] LABS: Albumin 4.2 g/dL (3.2-4.8); Aspartate Aminotransferase 26 U/L (13-40); Bilirubin, Total 0.9 mg/dL (0.2-1.0)
[2024-07-30 06:25] LABS: Glucose 188 mg/dL (74-106)
[2024-07-30 08:08] LABS: Platelet Estimate Adequate
[2024-07-30] MEDS: PANTOPRAZOLE 40 MG/10 ML VIAL INJ IV SCH ×2 (09:50→21:38)
[2024-07-30] MEDS: FUROSEMIDE 20 MG/2 ML VIAL IV SCH (09:50)
[2024-07-30] MEDS: ASPirin 81 mg TAB PO SCH (09:50)
[2024-07-30] MEDS: LISINOPRIL 20 MG TAB PO SCH (10:31)
[2024-07-30] MEDS: HYDROmorphone HCL 2 MG/ML VL/or syr IV PRN (12:54)
--- NOTE | 2024-07-30 13:25 | DVHPN2 ---
Subjective Continues having flank pain, epigastrium pain, Reviewed: H&P Changes from previous H/P or p: No Changes General: Per HPI Eyes: No Pain, No Vision change, No Conjunctivae inflammation, No Eyelid inflammation, No Other, No Redness ENT: No Ear pain, No Ear discharge, No Nose pain, No Nose discharge, No Nose congestion, No Mouth pain, No Mouth swelling, No Throat pain, No Throat swelling, No Other Cardiovascular: No Chest Pain, No Palpitations, No Orthopnea, No Paroxysmal Noc. Dyspnea, No Edema, No Lt Headedness, No Other Respiratory: No Cough, No Dry, No Shortness of breath, No SOB with excertion, No Wheezing, No Hemoptysis, No Pleuritic Pain, No Sputum, No Other Gastrointestinal: No Nausea, No Vomiting; Abdominal Pain, Diarrhea; No Constipation, No Melena, No Hematochezia; Other (abdomen distended) Genitourinary: No Dysuria, No Frequency, No Incontinence, No Hematuria, No Retention, No Other Musculoskeletal: No other, No neck pain, No shoulder pain, No arm pain, No back pain, No hand pain, No leg pain, No foot pain Skin: No Rash, No Lesions, No Jaundice, No Bruising, No Other Objective Vitals Vital Signs Date Time Temp Pulse Resp B/P (MAP) Pulse Ox O2 Delivery O2 Flow Rate FiO2 07/30/24 12:54 89 16 154/92 07/30/24 09:00 97.8 97 97.8 07/30/24 08:12 Room Air* 0 21 Intake/Output Intake and Output 07/30/24 07:00 Intake Total 360 ml Balance 360 ml Intake Oral 360 ml # Voids 4 Exam GEN: Healthy appearing, well-developed, NAD. HEENT: NC/AT; MMM. CV: RRR, no m/r/g. LUNGS: CTAB, no w/r/c. ABD: Voluntary guarding, tender to palpation epigastrium left upper quadrant. No CVA tenderness EXT: skin Warm, well perfused. no rashes. No clubbing, cyanosis, or edema. NEURO: Ambulating with no limitations. No focal deficits. Medications Current Medications Medications Dose Ordered Sig/Jorge Route Start Time Stop Time Status Last Admin Dose Admin Aspirin 81 mg DAILY PO 07/30/24 10:00 07/30/24 09:50 81 MG Atorvastatin Calcium 20 mg HS PO 07/29/24 22:00 07/29/24 21:39 20 MG Furosemide 20 mg DAILY IV 07/30/24 10:00 07/30/24 09:50 20 MG Carvedilol 12.5 mg Q12HR PO 07/29/24 22:00 07/30/24 10:32 12.5 MG Hydralazine HCl 10 mg Q6HP PRN IV 07/29/24 15:15 07/29/24 15:37 10 MG Lisinopril 20 mg DAILY PO 07/30/24 10:00 07/30/24 10:31 20 MG Diagnostic Test (Pha) 1 strip ACHS 07/29/24 17:00 07/30/24 11:30 1 STRIP Insulin Human Regular HS SC 07/29/24 22:00 07/29/24 21:41 3 UNITS Insulin Human Regular AC SC 07/29/24 17:00 07/30/24 11:30 6 UNITS Dextrose 50 ml UD PRN IV 07/29/24 15:15 Sodium Chloride 10 ml Q8HR IV 07/29/24 22:00 07/30/24 05:35 10 ML Ondansetron HCl 4 mg Q4HP PRN IV 07/29/24 15:15 07/30/24 04:47 4 MG Docusate Sodium 100 mg BIDPRN PRN PO 07/29/24 15:15 Acetaminophen 650 mg Q6HP PRN PO 07/29/24 15:15 Nitroglycerin 0.4 mg Q5MINP PRN SL 07/29/24 15:15 Pantoprazole Sodium 40 mg DAILY IV 07/30/24 10:00 07/30/24 09:50 40 MG Acetaminophen/ Hydrocodone Bitart 1 tab Q6HP PRN PO 07/30/24 12:00 Hydromorphone HCl 0.5 mg Q4HPRN PRN IV 07/30/24 12:00 07/30/24 12:54 0.5 MG Laboratory Results Laboratory Tests 07/30/24 04:36 Chemistry Test 07/30/24 04:36 Albumin 4.2 g/dL (3.2-4.8) Calcium Level 9.1 mg/dL (8.7-10.4) Total Protein 6.7 g/dL (5.7-8.2) LFT Test 07/30/24 04:36 Alanine Aminotransferase (ALT) 31 U/L (7-40) Alkaline Phosphatase 71 U/L (46-116) Aspartate Amino Transferase (AST) 26 U/L (13-40) Total Bilirubin 0.9 mg/dL (0.2-1.0) Urinalysis Test 07/29/24 15:02 Urine Color Yellow (Yellow) Urine Clarity Turbid (Clear) H Urine pH 5.5 (5.0-9.0) Urine Specific [place] 1.031 (1.001-1.035) Urine Protein 1+ (Negative) H Urine Ketones Negative (Negative) Urine Blood Trace /uL (Negative) H Urine Nitrite Negative (Negative) Urine Bilirubin Negative (Negative) Urine Urobilinogen Normal mg/dL (Negative) Urine Leukocyte Esterase Negative /uL (Negative) Urine RBC 2 /hpf (0 - 3) Urine Microscopic WBC 47 /HPF (0-3) H Urine Squamous Epithelial Cells Few /hpf (<5) Urine Transitional Epithelial Cells Few /hpf (<2) Urine Bacteria None seen /hpf (None Seen) Urine Mucus Few (None Seen) Urine Glucose 3+ mg/dL (Normal) H Labs and/or images reviewed: Labs reviewed by me, Image(s) reviewed by me Assessment/Plan Assessment/Plan 07/30 - Tomi, 48-year-old male. With past medical history of CHF, hypertension, diabetes. Coming in with abdominal pain. He has had this abdominal pain for 4 years with acute worsening appears to be bilateral flank radiating to the epigastrium. No nausea and vomiting, no CVA tenderness, no dysuria or bladder pain. He has never had a EGD. Unclear what is causing current syndrome. CT abdomen is negative. UA with sterile pyuria. Patient has sirs. ? Wondering if this is PID versus ureaplasma/chlamydia sterile pyuria, we will try short course ceftriaxone and start doxycycline may finish outpatient. Malingering/factitious/somatic symptom disorder remain possibility. Intractable abdominal pain Intractable flank pain Sirs without end-organ damage Intravascular volume depletion Gastroenteritis, infectious etiology Still pyuria History of CHF History hypertension History diabetes -continue IV p.r.n. analgesia pain control IV fluids -continue home medications - trial and assets Protonix IV b.i.d., Carafate b.i.d. ?- ceftriaxone, doxycycline -tomorrow small-bowel series with barium Continue Carafate and PPI Diet full liquid diet DVT prophylaxis ambulatory GI prophylaxis-Protonix Med surge Full code Plan discussed with: Patient My Orders Orders - CAROLINA OVALLE MD Procedure Category Date Status Time Hydrocodone-Acet PHA 07/30/24 In Process 10/325mg Tab ([place] 12:00 Hydromorphone PHA 07/30/24 In Process Injection (Dilaud[place] 12:00 Date of Service: Jul 30, 2024 Billing Provider: CAROLINA OVALLE MD Common Visit Codes: [id number] INP/OBS CARE(HIGH) CAROLINA OVALLE MD Jul 30, 2024 13:25
[2024-07-30] MEDS: DOXYCYCLINE 100MG/100ML 100 ML IV SCH (15:51)
[2024-07-30] MEDS: SUCRALFATE 1 GM/10 ML ORAL SUSP PO ONE (15:51)
[2024-07-30] MEDS: cefTRIAXone 1GM/50ML D5W 50 ML IV ONE (15:51)
[2024-07-30] MEDS: DOCUSATE SOD 100 MG CAP PO PRN (15:51)
[2024-07-30] MEDS: HYDROcodone-ACET 10/325MG TAB PO PRN (16:44)
[2024-07-30] MEDS: SUCRALFATE 1 GM/10 ML ORAL SUSP GT SCH (21:39)
[2024-07-31] VITALS (8 sets, daily range): BP systolic 126–156; BP diastolic 79–103; PULSE 80–100; RESP 18–20; TEMP 97.2–98.2; O2SAT 93–98
[2024-07-31 06:41] LABS: Alanine Aminotransferase 30 U/L (7-40); Alkaline Phosphatase 63 U/L (46-116); Anion Gap 8 (5-15); BUN/Creatinine Ratio 20.2 (10.0-20.0); Blood Urea Nitrogen 17 mg/dL (9-23); Carbon Dioxide 27 mmol/L (20-31); Chloride 106 mmol/L (98-107); Potassium 3.5 mmol/L (3.5-5.1); Sodium 141 mmol/L (136-145); Total Protein 6.3 g/dL (5.7-8.2)
[2024-07-31 06:42] LABS: Albumin 3.9 g/dL (3.2-4.8)
[2024-07-31 06:43] LABS: Aspartate Aminotransferase 23 U/L (13-40)
[2024-07-31 06:50] LABS: Calcium 8.7 mg/dL (8.7-10.4); Glucose 146 mg/dL (74-106)
[2024-07-31 06:56] LABS: Bilirubin, Total 0.9 mg/dL (0.2-1.0)
[2024-07-31] MEDS: cefTRIAXone 1GM/50ML D5W 50 ML IV SCH (08:34)
[2024-07-31] MEDS ORDERED: EZ PAQUE SUSP 12OZ BTL ONE (10:24)
--- NOTE | 2024-07-31 14:37 | DVHPN2 ---
Subjective Continues having flank pain, epigastrium pain, Reviewed: H&P Changes from previous H/P or p: No Changes General: Per HPI Eyes: No Pain, No Vision change, No Conjunctivae inflammation, No Eyelid inflammation, No Other, No Redness ENT: No Ear pain, No Ear discharge, No Nose pain, No Nose discharge, No Nose congestion, No Mouth pain, No Mouth swelling, No Throat pain, No Throat swelling, No Other Cardiovascular: No Chest Pain, No Palpitations, No Orthopnea, No Paroxysmal Noc. Dyspnea, No Edema, No Lt Headedness, No Other Respiratory: No Cough, No Dry, No Shortness of breath, No SOB with excertion, No Wheezing, No Hemoptysis, No Pleuritic Pain, No Sputum, No Other Gastrointestinal: No Nausea, No Vomiting; Abdominal Pain, Diarrhea; No Constipation, No Melena, No Hematochezia; Other (abdomen distended) Genitourinary: No Dysuria, No Frequency, No Incontinence, No Hematuria, No Retention, No Other Musculoskeletal: No other, No neck pain, No shoulder pain, No arm pain, No back pain, No hand pain, No leg pain, No foot pain Skin: No Rash, No Lesions, No Jaundice, No Bruising, No Other Objective Vitals Vital Signs Date Time Temp Pulse Resp B/P (MAP) Pulse Ox O2 Delivery O2 Flow Rate FiO2 07/31/24 12:54 86 18 146/91 07/31/24 12:36 97.6 98 97.6 07/31/24 08:24 Room Air* 0 21 Intake/Output Intake and Output 07/31/24 07:00 Intake Total 850 ml Balance 850 ml Intake Oral 600 ml IV Total 250 ml # Voids 2 Exam GEN: Healthy appearing, well-developed, NAD. HEENT: NC/AT; MMM. CV: RRR, no m/r/g. LUNGS: CTAB, no w/r/c. ABD: Voluntary guarding, tender to palpation epigastrium left upper quadrant. No CVA tenderness EXT: skin Warm, well perfused. no rashes. No clubbing, cyanosis, or edema. NEURO: Ambulating with no limitations. No focal deficits. Medications Current Medications Medications Dose Ordered Sig/Jorge Route Start Time Stop Time Status Last Admin Dose Admin Aspirin 81 mg DAILY PO 07/30/24 10:00 07/31/24 08:35 81 MG Atorvastatin Calcium 20 mg HS PO 07/29/24 22:00 07/30/24 21:39 20 MG Furosemide 20 mg DAILY IV 07/30/24 10:00 07/31/24 08:37 20 MG Carvedilol 12.5 mg Q12HR PO 07/29/24 22:00 07/31/24 08:37 12.5 MG Hydralazine HCl 10 mg Q6HP PRN IV 07/29/24 15:15 07/30/24 14:22 10 MG Lisinopril 20 mg DAILY PO 07/30/24 10:00 07/31/24 08:37 20 MG Diagnostic Test (Pha) 1 strip ACHS 07/29/24 17:00 07/31/24 11:55 1 STRIP Insulin Human Regular HS SC 07/29/24 22:00 07/30/24 21:55 3 UNITS Insulin Human Regular AC SC 07/29/24 17:00 07/31/24 12:00 3 UNITS Dextrose 50 ml UD PRN IV 07/29/24 15:15 Sodium Chloride 10 ml Q8HR IV 07/29/24 22:00 07/31/24 13:27 10 ML Ondansetron HCl 4 mg Q4HP PRN IV 07/29/24 15:15 07/31/24 13:23 4 MG Docusate Sodium 100 mg BIDPRN PRN PO 07/29/24 15:15 07/30/24 15:51 100 MG Acetaminophen 650 mg Q6HP PRN PO 07/29/24 15:15 Nitroglycerin 0.4 mg Q5MINP PRN SL 07/29/24 15:15 Acetaminophen/ Hydrocodone Bitart 1 tab Q6HP PRN PO 07/30/24 12:00 07/31/24 08:35 1 TAB Hydromorphone HCl 0.5 mg Q4HPRN PRN IV 07/30/24 12:00 07/31/24 11:56 0.5 MG Pantoprazole Sodium 40 mg BID IV 07/30/24 22:00 07/31/24 08:37 40 MG Doxycycline Hyclate 100 ml @ 50 mls/hr Q12H IV 07/30/24 14:15 07/31/24 13:23 50 MLS/HR Sucralfate 1 gm BID@0600,2200 GT 07/30/24 22:00 07/31/24 06:30 1 GM Ceftriaxone Sodium 50 ml @ 100 mls/hr DAILY@09 IV 07/31/24 09:00 07/31/24 08:34 100 MLS/HR Laboratory Results Laboratory Tests 07/30/24 04:36 07/31/24 05:55 Chemistry Test 07/31/24 05:55 Albumin 3.9 g/dL (3.2-4.8) Calcium Level 8.7 mg/dL (8.7-10.4) Total Protein 6.3 g/dL (5.7-8.2) LFT Test 07/31/24 05:55 Alanine Aminotransferase (ALT) 30 U/L (7-40) Alkaline Phosphatase 63 U/L (46-116) Aspartate Amino Transferase (AST) 23 U/L (13-40) Total Bilirubin 0.9 mg/dL (0.2-1.0) Urinalysis Test 07/29/24 15:02 Urine Color Yellow (Yellow) Urine Clarity Turbid (Clear) H Urine pH 5.5 (5.0-9.0) Urine Specific [place] 1.031 (1.001-1.035) Urine Protein 1+ (Negative) H Urine Ketones Negative (Negative) Urine Blood Trace /uL (Negative) H Urine Nitrite Negative (Negative) Urine Bilirubin Negative (Negative) Urine Urobilinogen Normal mg/dL (Negative) Urine Leukocyte Esterase Negative /uL (Negative) Urine RBC 2 /hpf (0 - 3) Urine Microscopic WBC 47 /HPF (0-3) H Urine Squamous Epithelial Cells Few /hpf (<5) Urine Transitional Epithelial Cells Few /hpf (<2) Urine Bacteria None seen /hpf (None Seen) Urine Mucus Few (None Seen) Urine Glucose 3+ mg/dL (Normal) H Labs and/or images reviewed: Labs reviewed by me, Image(s) reviewed by me Assessment/Plan Assessment/Plan 07/30 - Tomi, 48-year-old male. With past medical history of CHF, hypertension, diabetes. Coming in with abdominal pain. He has had this abdominal pain for 4 years with acute worsening appears to be bilateral flank radiating to the epigastrium. No nausea and vomiting, no CVA tenderness, no dysuria or bladder pain. He has never had a EGD. Unclear what is causing current syndrome. CT abdomen is negative. UA with sterile pyuria. Patient has sirs. ? Wondering if this is PID versus ureaplasma/chlamydia sterile pyuria, we will try short course ceftriaxone and start doxycycline may finish outpatient. Malingering/factitious/somatic symptom disorder remain possibility. 07/31- patient continues to have pain. He keeps saying that he has masses on bilateral upper quadrants of abdomen but on palpation there is no masses. Abdomen is soft. He is tolerating p.o.. Pain is controllable with oral analgesia comes down to 5-6 out of 10. But he is still using some IV analgesia. Today small-bowel series with barium swallow was done, we will follow up with study results to assess gastric emptying time. He is feeling nauseous after barium intake and we are giving IV antiemetics. This could be musculoskeletal pain. We will try baclofen b.i.d.. He says he feels constipated but on CT abdomen there was no large burden of fecal matter. Patient has been having this pain for 4 months and recently started Mounjaro 3 weeks which could be worsening his pain. If there is no obstruction found we will also trial Reglan. Intractable abdominal pain Intractable flank pain Sirs without end-organ damage Intravascular volume depletion Gastroenteritis, infectious etiology Still pyuria Musculoskeletal pain possible Psychosomatic pain possible History of CHF History hypertension History diabetes -continue IV p.r.n. analgesia pain control IV fluids -continue home medications - trial and assets Protonix IV b.i.d., Carafate b.i.d. ?- ceftriaxone, doxycycline Continue Carafate and PPI Reglan prn Baclofen b.i.d.. Follow up with small series with barium Urine culture ordered and pending.- continue ceftriaxone doxycycline. Diet full liquid diet DVT prophylaxis ambulatory GI prophylaxis-Protonix Med surge Full code Plan discussed with: Patient My Orders Orders - CAROLINA OVALLE MD Procedure Category Date Status Time Urine Bacterial YAZMIN 07/31/24 Logged Culture 10:16 Full Liq Diet DIET 07/31/24 Transmitted Lunch Date of Service: Jul 31, 2024 Billing Provider: CAROLINA OVALLE MD Common Visit Codes: [id number] INP/OBS CARE(HIGH) CAROLINA OVALLE MD Jul 31, 2024 14:37
[2024-07-31] MEDS ORDERED: METOCLOPRAMIDE HCL 5MG/ml INJ 2ml VIAL IV PRN (14:45)
--- NOTE | 2024-07-31 15:17 | DVH ---
Procedure: XY SMALL BOWEL SERIES-W BARIUM Exam Date: 07/31/2024 01:42 PM Reason for study/Clinical History: gastric fullness Comparison Study: None Technique: Single contrast small bowel series performed. Findings: Initial physical therapy director view of the abdomen and pelvis appears demonstrates no acute process. Contrast is identified within the colon by 3 h. This represents a normal small bowel transit time. Small bowel loops are normal in size. Normal mucosal pattern. No evidence of small bowel obstructi on, stricture, or mucosal abnormality. The terminal ileum is well visualized and is unremarkable. IMPRESSION: Normal small bowel series. END IMPRESSION:
[2024-07-31] MEDS: BACLOFEN 10 MG TAB PO ONE (16:49)
[2024-07-31] MEDS: BACLOFEN 10 MG TAB PO SCH (21:48)
[2024-08-01] VITALS (9 sets, daily range): BP systolic 126–167; BP diastolic 86–118; PULSE 83–97; RESP 16–20; TEMP 97.5–99.1; O2SAT 95–97
[2024-08-01 06:47] LABS: Alanine Aminotransferase 29 U/L (7-40); Albumin 3.9 g/dL (3.2-4.8); Alkaline Phosphatase 70 U/L (46-116); Anion Gap 6 (5-15); Aspartate Aminotransferase 23 U/L (13-40); BUN/Creatinine Ratio 13.8 (10.0-20.0); Blood Urea Nitrogen 12 mg/dL (9-23); Calcium 9.4 mg/dL (8.7-10.4); Carbon Dioxide 29 mmol/L (20-31); Chloride 106 mmol/L (98-107); Potassium 3.9 mmol/L (3.5-5.1); Sodium 141 mmol/L (136-145); Total Protein 6.5 g/dL (5.7-8.2)
[2024-08-01 06:48] LABS: Bilirubin, Total 0.9 mg/dL (0.2-1.0)
[2024-08-01 06:53] LABS: Glucose 140 mg/dL (74-106)
[2024-08-01] MEDS: D5W/SOD CHL 0.45% 1,000 ML IV SCH (15:24)
--- NOTE | 2024-08-01 16:38 | DVHPN2 ---
Subjective Continues having flank pain, epigastrium pain, Reviewed: H&P Changes from previous H/P or p: No Changes General: Per HPI Eyes: No Pain, No Vision change, No Conjunctivae inflammation, No Eyelid inflammation, No Other, No Redness ENT: No Ear pain, No Ear discharge, No Nose pain, No Nose discharge, No Nose congestion, No Mouth pain, No Mouth swelling, No Throat pain, No Throat swelling, No Other Cardiovascular: No Chest Pain, No Palpitations, No Orthopnea, No Paroxysmal Noc. Dyspnea, No Edema, No Lt Headedness, No Other Respiratory: No Cough, No Dry, No Shortness of breath, No SOB with excertion, No Wheezing, No Hemoptysis, No Pleuritic Pain, No Sputum, No Other Gastrointestinal: No Nausea, No Vomiting; Abdominal Pain, Diarrhea; No Constipation, No Melena, No Hematochezia; Other (abdomen distended) Genitourinary: No Dysuria, No Frequency, No Incontinence, No Hematuria, No Retention, No Other Musculoskeletal: No other, No neck pain, No shoulder pain, No arm pain, No back pain, No hand pain, No leg pain, No foot pain Skin: No Rash, No Lesions, No Jaundice, No Bruising, No Other Objective Vitals Vital Signs Date Time Temp Pulse Resp B/P (MAP) Pulse Ox O2 Delivery O2 Flow Rate FiO2 08/01/24 16:11 158/106 08/01/24 14:47 86 18 08/01/24 13:00 97.7 96 97.7 08/01/24 08:02 Room Air* 0 21 Intake/Output Intake and Output 08/01/24 07:00 Intake Total 1230 ml Balance 1230 ml Intake Oral 980 ml IV Total 250 ml # Voids 4 Exam GEN: Healthy appearing, well-developed, NAD. HEENT: NC/AT; MMM. CV: RRR, no m/r/g. LUNGS: CTAB, no w/r/c. ABD: Voluntary guarding, tender to palpation epigastrium left upper quadrant. No CVA tenderness EXT: skin Warm, well perfused. no rashes. No clubbing, cyanosis, or edema. NEURO: Ambulating with no limitations. No focal deficits. Medications Current Medications Medications Dose Ordered Sig/Jorge Route Start Time Stop Time Status Last Admin Dose Admin Aspirin 81 mg DAILY PO 07/30/24 10:00 08/01/24 10:15 81 MG Atorvastatin Calcium 20 mg HS PO 07/29/24 22:00 07/31/24 21:48 20 MG Furosemide 20 mg DAILY IV 07/30/24 10:00 08/01/24 10:16 20 MG Carvedilol 12.5 mg Q12HR PO 07/29/24 22:00 08/01/24 10:15 12.5 MG Hydralazine HCl 10 mg Q6HP PRN IV 07/29/24 15:15 08/01/24 16:11 10 MG Lisinopril 20 mg DAILY PO 07/30/24 10:00 08/01/24 10:15 20 MG Diagnostic Test (Pha) 1 strip ACHS 07/29/24 17:00 08/01/24 16:14 1 STRIP Insulin Human Regular HS SC 07/29/24 22:00 07/31/24 21:50 3 UNITS Insulin Human Regular AC SC 07/29/24 17:00 08/01/24 16:21 2 UNITS Dextrose 50 ml UD PRN IV 07/29/24 15:15 Sodium Chloride 10 ml Q8HR IV 07/29/24 22:00 08/01/24 14:15 10 ML Ondansetron HCl 4 mg Q4HP PRN IV 07/29/24 15:15 08/01/24 15:22 4 MG Docusate Sodium 100 mg BIDPRN PRN PO 07/29/24 15:15 07/31/24 19:58 100 MG Acetaminophen 650 mg Q6HP PRN PO 07/29/24 15:15 Nitroglycerin 0.4 mg Q5MINP PRN SL 07/29/24 15:15 Acetaminophen/ Hydrocodone Bitart 1 tab Q6HP PRN PO 07/30/24 12:00 08/01/24 08:23 1 TAB Hydromorphone HCl 0.5 mg Q4HPRN PRN IV 07/30/24 12:00 08/01/24 14:17 0.5 MG Pantoprazole Sodium 40 mg BID IV 07/30/24 22:00 08/01/24 10:15 40 MG Doxycycline Hyclate 100 ml @ 50 mls/hr Q12H IV 07/30/24 14:15 08/01/24 14:16 50 MLS/HR Sucralfate 1 gm BID@0600,2200 GT 07/30/24 22:00 08/01/24 05:13 1 GM Ceftriaxone Sodium 50 ml @ 100 mls/hr DAILY@09 IV 07/31/24 09:00 08/01/24 08:08 100 MLS/HR Baclofen 10 mg Q8HR PO 07/31/24 22:00 08/01/24 14:15 10 MG Metoclopramide HCl 5 mg Q6HPRN PRN IV 07/31/24 14:45 Dextrose/Sodium Chloride 1,000 ml @ 75 mls/hr [id number] IV 08/01/24 15:15 08/01/24 15:24 75 MLS/HR Laboratory Results Laboratory Tests 07/30/24 04:36 08/01/24 06:02 Chemistry Test 08/01/24 06:02 Albumin 3.9 g/dL (3.2-4.8) Calcium Level 9.4 mg/dL (8.7-10.4) Total Protein 6.5 g/dL (5.7-8.2) LFT Test 08/01/24 06:02 Alanine Aminotransferase (ALT) 29 U/L (7-40) Alkaline Phosphatase 70 U/L (46-116) Aspartate Amino Transferase (AST) 23 U/L (13-40) Total Bilirubin 0.9 mg/dL (0.2-1.0) Urinalysis Test 07/29/24 15:02 Urine Color Yellow (Yellow) Urine Clarity Turbid (Clear) H Urine pH 5.5 (5.0-9.0) Urine Specific [place] 1.031 (1.001-1.035) Urine Protein 1+ (Negative) H Urine Ketones Negative (Negative) Urine Blood Trace /uL (Negative) H Urine Nitrite Negative (Negative) Urine Bilirubin Negative (Negative) Urine Urobilinogen Normal mg/dL (Negative) Urine Leukocyte Esterase Negative /uL (Negative) Urine RBC 2 /hpf (0 - 3) Urine Microscopic WBC 47 /HPF (0-3) H Urine Squamous Epithelial Cells Few /hpf (<5) Urine Transitional Epithelial Cells Few /hpf (<2) Urine Bacteria None seen /hpf (None Seen) Urine Mucus Few (None Seen) Urine Glucose 3+ mg/dL (Normal) H Labs and/or images reviewed: Labs reviewed by me, Image(s) reviewed by me Assessment/Plan Assessment/Plan 07/30 - Tomi, 48-year-old male. With past medical history of CHF, hypertension, diabetes. Coming in with abdominal pain. He has had this abdominal pain for 4 years with acute worsening appears to be bilateral flank radiating to the epigastrium. No nausea and vomiting, no CVA tenderness, no dysuria or bladder pain. He has never had a EGD. Unclear what is causing current syndrome. CT abdomen is negative. UA with sterile pyuria. Patient has sirs. ? Wondering if this is PID versus ureaplasma/chlamydia sterile pyuria, we will try short course ceftriaxone and start doxycycline may finish outpatient. Malingering/factitious/somatic symptom disorder remain possibility. 07/31- patient continues to have pain. He keeps saying that he has masses on bilateral upper quadrants of abdomen but on palpation there is no masses. Abdomen is soft. He is tolerating p.o.. Pain is controllable with oral analgesia comes down to 5-6 out of 10. But he is still using some IV analgesia. Today small-bowel series with barium swallow was done, we will follow up with study results to assess gastric emptying time. He is feeling nauseous after barium intake and we are giving IV antiemetics. This could be musculoskeletal pain. We will try baclofen b.i.d.. He says he feels constipated but on CT abdomen there was no large burden of fecal matter. Patient has been having this pain for 4 months and recently started Mounjaro 3 weeks which could be worsening his pain. If there is no obstruction found we will also trial Reglan. 08/01- gastric emptying on barium swallow series is normal. All workup has been normal and unremarkable. Today on physical exam abdomen remains nontender nondistended soft vital signs is intact. Patient continues to persist that he has severe abdominal pain although appearing without distress. Discharge plan developed in afternoon and presented to patient where he starts to endorsed that he is now having emesis. And has blood in vomit .. We will get 1 eval with GI and possibly repeat CT abdomen and pelvis after GI eval, unless other studies indicated by GI. Start D5 half-normal maintenance, antiemetics Zofran, NPO, aspiration precautions,. Hold off Reglan, continue baclofen, continue ceftriaxone and doxycycline,. Continue Protonix IV and Carafate b.i.d.,. Intractable abdominal pain Intractable flank pain Sirs without end-organ damage Intravascular volume depletion Gastroenteritis, infectious etiology Still pyuria Musculoskeletal pain possible Psychosomatic pain possible History of CHF History hypertension History diabetes -continue IV p.r.n. analgesia pain control IV fluids -continue home medications - trial and assets Protonix IV b.i.d., Carafate b.i.d. ?- ceftriaxone, doxycycline Continue Carafate and PPI Reglan prn Baclofen b.i.d.. Follow up with small series with barium Urine culture ordered and pending.- continue ceftriaxone doxycycline. Diet full liquid diet DVT prophylaxis ambulatory GI prophylaxis-Protonix Med surge Full code Plan discussed with: Patient My Orders Orders - CAROLINA OVALLE MD Procedure Category Date Status Time D5w/Sod Chl 0.45% PHA 08/01/24 In Process (D5w 1/2ns) 15:15 Npo (Nothing By DIET 08/01/24 Transmitted Mouth) Diet Dinner Date of Service: Aug 01, 2024 Billing Provider: CAROLINA OVALLE MD Common Visit Codes: [id number] INP/OBS CARE(HIGH) CAROLINA OVALLE MD Aug 01, 2024 16:38
[2024-08-01] MEDS: GOLYTELY 4L KIT PO ONE (20:32)
[2024-08-01 20:36] LABS: INR 1.08 (0.9-1.15); Partial Thromboplastin Time 29.7 SEC (24.5-34.5); Prothrombin Time 11.4 sec (9.3-11.8)
--- NOTE | 2024-08-01 20:44 | DVHINCON2 ---
Date of service: Aug 01, [address] Carvalho Reason for Consultation Recurrent Abdominal pains nausea anorexia and occasional diarrhea History of Present Illness This 48-year-old male presented to the emergency room with complaints of nausea anorexia and abdominal pain. Apparently he was admitted about a week ago but left AMA. Patient also was in [facility] about three weeks to four weeks ago apparently and had some workup done there which was unremarkable but never stayed there also except for a day or two the info from the apparently the workup there was also unremarkable including a CT scan but never had any endoscopic workup Patient has some nausea anorexia He has been on Mounjaro for the last three weeks but his symptoms have been the apparently for about five months as per the patient Some fullness in both upper quadrants close to the costophrenic angles his CT scan showed no abnormalities labs were essentially unremarkable also The GI consult is for possible GI pathology to account for the symptoms Past Medical History History of diabetes congestive heart failure hypertension hyperlipidemia obesity patient had been started recently on Mounjaro about three weeks ago Past Surgical History None Family History: FHx: multiple myeloma G8 MOTHER, Family History Noncontributory Social History Denies smoking or drinking or drug abuse Allergies: Coded Allergies: No Known Drug Allergy (Verified Allergy, Unknown, 12/24/23) Home Meds Active Scripts Carvedilol (COREG) 3.125 Mg Tab, 6.25 MG PO BID for 30 Days, #120 TAB Prov:CORRINE GRAHAM [facility] 12/28/23 Insulin Glargine (Lantus) 100 Unit/Ml Inj, 35 UNITS SC BID@1000,2200 for 30 Days, #1 INJ Prov:SANTOSCORRINE [facility] 12/28/23 Acetaminophen (Acetaminophen) 325 Mg Tab, 325 MG PO Q4HP PRN for 7 Days, #35 TAB [facility] 12/28/23 Aspirin (Aspirin Low Dose) 81 Mg Chw, 1 TAB PO DAILY for 30 Days, #30 TAB 3 Refills Prov:SANTOSCORRINE [facility] 12/28/23 Glipizide (Glipizide) 10 Mg Tab, 1 TAB PO BID for 30 Days, #60 TAB 5 Refills Prov:SANTOSCORRINE [facility] 12/28/23 Ondansetron Odt 4MG Tab (ZOFRAN PO) 4 Mg Tb, 4 MG PO QID PRN for 7 Days, #28 TAB ODT TAB-DISSOLVE IN MOUTH, THEN SWALLOW Prov:CORRINE GRAHAM [facility] 12/28/23 Lisinopril (Lisinopril) 20 Mg Tab, 20 MG PO DAILY for 30 Days, #30 TAB Prov:KAYLICORRINE SEALS [facility] 12/28/23 Furosemide (Furosemide) 20 Mg Tab, 20 MG PO BIDD for 30 Days, #60 TAB Prov[facility] 12/28/23 Ergocalciferol (VITAMIN D 00247 UNIT) 50,000 Unit Cp, 13211 UNIT PO Q7D for 30 Days, #30 CAP Prov:[facility] 12/28/23 Empagliflozin (Jardiance) 10 Mg Tab, 10 MG PO DAILY for 30 Days, #30 TAB Prov:[facility] 12/28/23 Atorvastatin Calcium (ATORVASTATIN CALCIUM) 20 Mg Tab, 40 MG PO HS for 30 Days, #60 TAB [facility] 12/28/23 Reported Medications Tirzepatide (Mounjaro) 2.5 Mg/0.5 Ml Inj, 2.5 MG SC QWEEKLY, INJ 07/21/24 Nitroglycerin (NTROSTAT SUBLINGUAL) 0.4 Mg Sl, 0.4 MG SL PRN, TAB *MAY REPEAT EVERY 5 MINUTES X 3 TOTAL IF NO RELIEF, INITIATE ANALGESIC THERAPY. NOTIFY PHYSICIAN *Do not crush. 12/25/23 Insulin Glargine (Basaglar Kwikpen) 100 Unit/Ml Inj, 100 UNIT SC, INJ 12/25/23 Tramadol Hcl (Tramadol Hcl) 50 Mg Tab, 50 MG PO, TAB 12/25/23 Acetaminophen (Acetaminophen Extra Stren) 500 Mg Tab, PO 12/25/23 Current Medications Current Medications Medications (Trade) Dose Ordered Sig/Jorge Route PRN Reason Start Time Stop Time Status Last Admin Baclofen (Liorisal Tablet) 10 mg Q8HR PO 07/31/24 22:00 08/01/24 14:15 Dextrose/Sodium Chloride 1,000 ml @ 75 mls/hr [id number] IV 08/01/24 15:15 08/01/24 15:24 Review of Systems Non contributory Vital Signs Vital Signs Date Time Temp Pulse Resp B/P (MAP) Pulse Ox O2 Delivery O2 Flow Rate FiO2 08/01/24 19:55 Room Air* 0 21 08/01/24 18:10 94 19 160/98 (118) 08/01/24 16:40 97.8 96 97.8 Physical Exam Moderately built and nourished male slightly on the obese side in no acute distress Multiple complaints of abdominal pain nausea diarrhea etc. now denied any hematemesis or melena HEENT examination no pallor no icterus Lungs clear Cardiovascular unremarkable Abdomen is soft slightly on the obese side Tenderness in both upper quadrants especially the costophrenic angle area and also in the left lower quadrant No rigidity no guarding no masses bowel sounds normal Extremities no edema Neuro grossly intact Labs/Diagnostic Data Labs Test 08/01/24 19:57 08/01/24 11:26 08/01/24 06:02 07/30/24 04:36 Range/Units POC Glucose 168 H 70-106 mg/dl Sodium Level 141 136-145 mmol/L Potassium Level 3.9 3.5-5.1 mmol/L Chloride Level 106 98-107 mmol/L Carbon Dioxide Level 29 20-31 mmol/L Anion Gap 6 5-15 Blood Urea Nitrogen 12 9-23 mg/dL Creatinine 0.87 0.700-1.30 mg/dL Glomerular Filtration Rate Calc 106 >90 mL/min BUN/Creatinine Ratio 13.8 10.0-20.0 Serum Glucose 140 H 74-106 mg/dL Calcium Level 9.4 8.7-10.4 mg/dL Total Bilirubin 0.9 0.2-1.0 mg/dL Aspartate Amino Transferase (AST) 23 13-40 U/L Alanine Aminotransferase (ALT) 29 7-40 U/L Alkaline Phosphatase 70 46-116 U/L Total Protein 6.5 5.7-8.2 g/dL Albumin 3.9 3.2-4.8 g/dL White Blood Count 8.0 4.4-10.8 10^3/uL Red Blood Count 5.08 4.5-5.90 10^6/uL Hemoglobin 15.4 13.5-17.5 g/dL Hematocrit 43.4 41.0-53.0 % Mean Corpuscular Volume 85.5 80.0-100.0 fL Mean Corpuscular Hemoglobin 30.3 28.0-32.0 pg Mean Corpuscular Hemoglobin Concent 35.4 32.0-36.0 g/dL Red Cell Distribution Width 14.3 11.8-14.3 % Platelet Count 245 140-450 10^3/uL Mean Platelet Volume 9.1 6.9-10.8 fL Neutrophils (%) (Auto) 57.4 37.0-80.0 % Lymphocytes (%) (Auto) 26.0 10.0-50.0 % Monocytes (%) (Auto) 12.3 H 0.0-12.0 % Eosinophils (%) (Auto) 3.4 0.0-7.0 % Basophils (%) (Auto) 0.9 0.0-2.0 % Neutrophils # (Auto) 4.6 1.6-8.6 10 ^3/uL Lymphocytes # (Auto) 2.1 0.4-5.4 10 ^3/uL Monocytes # (Auto) 1.0 0-1.3 10 ^3/uL Eosinophils # (Auto) 0.3 0-0.8 10 ^3/uL Basophils # (Auto) 0.1 0-0.2 10 ^3/uL Nucleated Red Blood Cells 5.9 % Platelet Estimate Adequate Test 07/29/24 15:02 07/29/24 12:42 Range/Units Urine Color Yellow Yellow Urine Clarity Turbid H Clear Urine pH 5.5 5.0-9.0 Urine Specific [place] 1.031 1.001-1.035 Urine Protein 1+ H Negative Urine Ketones Negative Negative Urine Blood Trace H Negative /uL Urine Nitrite Negative Negative Urine Bilirubin Negative Negative Urine Urobilinogen Normal Negative mg/dL Urine Leukocyte Esterase Negative Negative /uL Urine RBC 2 0 - 3 /hpf Urine Microscopic WBC 47 H 0-3 /HPF Urine Squamous Epithelial Cells Few <5 /hpf Urine Transitional Epithelial Cells Few <2 /hpf Urine Bacteria None seen None Seen /hpf Urine Mucus Few None Seen Urine Glucose 3+ H Normal mg/dL B-Type Natriuretic Peptide 101.19 0-100 pg/mL Lipase 40 12-53 U/L Assessment 48-year-old male with a history of diabetes congestive heart failure hypertension hyperlipidemia was on recently on mounjaro now presenting with complaints of abdominal pain nausea as well as diarrhea Physical examination is unremarkable except for nonspecific tenderness in both upper quadrants in the left lower quadrant no masses felt Labs are unrevealing CT scan is unremarkable Clinical impression abdominal pain of undetermined etiology Possibility of the gastritis or gastroparesis or H pylori gastritis or or colonic pathology can not be excluded also Plan/Recommendation will recommend EGD evaluation and colon evaluation especially because of the persistent symptoms and recurrent ER visits To rule out any GI pathology including H pylori or colonic problems Procedure risks benefits alternatives explained to the patient and agreeable Thank you Dr. Hanna Plan discussed with: Patient CLAY HANNA MD Aug 01, 2024 20:44
[2024-08-02] VITALS (8 sets, daily range): BP systolic 146–157; BP diastolic 84–99; PULSE 87–98; RESP 17–20; TEMP 97.7–98.4; O2SAT 95–98
[2024-08-02 05:35] LABS: Basophils # (auto) 0.1 10 ^3/uL (0-0.2); Basophils % (auto) 0.7 % (0.0-2.0); Eosinophils # (auto) 0.1 10 ^3/uL (0-0.8); Eosinophils % (auto) 1.4 % (0.0-7.0); Hematocrit 44.1 % (41.0-53.0); Hemoglobin 15.7 g/dL (13.5-17.5); Lymphocytes # (auto) 1.9 10 ^3/uL (0.4-5.4); Mean Corpuscular Hemoglobin 30.1 pg (28.0-32.0); Mean Corpuscular Hgb Conc. 35.5 g/dL (32.0-36.0); Mean Corpuscular Volume 84.9 fL (80.0-100.0); Monocytes # (auto) 1.2 10 ^3/uL (0-1.3); Monocytes % (auto) 12.3 % (0.0-12.0); Neutrophils # (auto) 6.2 10 ^3/uL (1.6-8.6); Neutrophils % (auto) 65.6 % (37.0-80.0); Nucleated Red Blood Cells % 0.1 %; Platelet Count (auto) 254 10^3/uL (140-450); Red Cell Distribution Width 14.2 % (11.8-14.3); White Blood Cell 9.4 10^3/uL (4.4-10.8)
[2024-08-02 06:20] LABS: Alanine Aminotransferase 33 U/L (7-40); Albumin 4.6 g/dL (3.2-4.8); Alkaline Phosphatase 79 U/L (46-116); Anion Gap 7 (5-15); Aspartate Aminotransferase 27 U/L (13-40); BUN/Creatinine Ratio 10.7 (10.0-20.0); Bilirubin, Total 1.1 mg/dL (0.2-1.0); Calcium 9.7 mg/dL (8.7-10.4); Carbon Dioxide 28 mmol/L (20-31); Chloride 104 mmol/L (98-107); Potassium 3.7 mmol/L (3.5-5.1); Sodium 139 mmol/L (136-145); Total Protein 7.5 g/dL (5.7-8.2)
[2024-08-02 06:21] LABS: Blood Urea Nitrogen 9 mg/dL (9-23); Glucose 133 mg/dL (74-106)
--- NOTE | 2024-08-02 10:20 | DVH ---
INDICATION: PRE OP TECHNIQUE: Frontal view of the chest. COMPARISON: XY CHEST XRAY 1 VIEW on DOS: 12/25/23 FINDINGS: Cardiomegaly. The heart and mediastinal contours are grossly unremarkable. There is no evidence of p leural disease. The lungs are clear. The bony structures of the chest are intact without fracture. IMPRESSION: 1. Cardiomegaly with CHF
--- NOTE | 2024-08-02 10:31 | ECG ---
[facility] Test Date: 2024-08-02 Test Time: 09:01:34 Pat Name: EULOGIO LAUGHLIN Department: Respiratoy Room: 0250T A Gender: M Bus Matron: MARTA WILCOX RN : 1975 Requested By: CLAY RAYMOND Order Number: [id number] Reading MD: Edouard Cifuentes Measurements Intervals [place] Rate: 93 P: 71 NE: 222 QRS: 0 QRSD: 122 T: 149 QT: 375 QTc: 467 Interpretive Statements Sinus rhythm Prolonged NE interval MIRTA, consider biatrial enlargement Nonspecific intraventricular conduction delay Abnrm T, consider ischemia, anterolateral lds Electronically Signed On 08-02-2024 12:40:33 PDT by Edouard Cifuentes Please click the below link to view image of tracing.
[2024-08-02] MEDS ORDERED: PROPOFOL 10 MG/ML 20 ML IV ONE (12:02)
[2024-08-02] MEDS ORDERED: fentaNYL CITRATE 100 MCG/2 ML VL ONE (12:05)
[2024-08-02] MEDS ORDERED: ePHEDrine SULFATE 50 MG/ML AMP ONE (12:43)
--- NOTE | 2024-08-02 13:14 | DVHOP2 ---
Operative Report DATE OF PROCEDURE: 08/02/24 INDICATIONS FOR THE PROCEDURE: Abdominal pain nausea anorexia PROCEDURE PERFORMED: 1. Esophagogastroduodenoscopy and biopsy cold biopsy forceps POSTOPERATIVE DIAGNOSIS: Small hiatal hernia mild esophagitis LA classification B mild antral gastritis biopsies taken INFORMED CONSENT: The risks and benefits and alternatives were explained to the patient and informed consent was obtained. PROCEDURE IN DETAIL: The patient was kept NPO after midnight. In the endoscopy room OR was given MAC sedation by anesthesia to get him sedated. Olympus gastroscope was passed through the oropharynx into the stomach and the duodenum, and the findings were as follows. Esophagus: Small hiatal hernia of less than 1 cm Mild esophagitis LA classification B No ulcers no strictures No bleeding biopsies taken Stomach: Fundus: Retroflexed and visualized normal Body and antrum Mild antral gastritis biopsies taken with cold biopsy forceps to ensure there was no H pylori Pylorus normal Duodenum unremarkable Endoscopic impression Small Hiatal hernia Mild esophagitis LA classification B Mild antral gastritis No ulcers no mass lesion Suggestions Await the biopsy result Symptomatic treatment with Pepcid or if necessary PPIs Unable to explain all the symptoms from this study Thank you for asking me to take part in the care of this pleasant patient CLAY Lam MD Aug 02, 2024 13:14
[2024-08-02] MEDS ORDERED: ACETAMINOPHEN IV 1000 MG/100ML (10MG/ML) IV PRN (13:15)
[2024-08-02] MEDS ORDERED: HYDROmorphone HCL 2 MG/ML VL/or syr IV PRN (13:15)
[2024-08-02] MEDS: ONDANSETRON HCL 4 MG/2 ML VIAL IV ONE (13:15)
--- NOTE | 2024-08-02 13:19 | DVHOP2 ---
Operative Report DATE OF PROCEDURE: 08/02/24 INDICATIONS FOR THE PROCEDURE: Abdominal pain occasional diarrhea PROCEDURE PERFORMED: Colonoscopy and biopsy POSTOPERATIVE DIAGNOSIS: Extremely poor prep with thick stools and suboptimal examination because of the thick stools Mild proctitis nonspecific properly from thick stools Internal hemorrhoids No active bleeding seen Small polyps or small lesions can not be ruled out because of the poor prep INFORMED CONSENT: The risks and benefits and alternatives were explained to the patient and informed consent was obtained. PROCEDURE IN DETAIL: The patient was kept NPO after midnight. Procedures was done in the OR under MAC sedation Olympus colonoscope was passed through the rectum all the way up to cecum. Cecum, ascending colon, hepatic flexure, transverse colon, splenic flexure, descending colon, and sigmoid colon were all visualized and the findings were as follows: Findings: Cecum was full of stools as well as most of the colon which were cleaned out as much as possible grossly no big lesions seen but small polyps can not be ruled out No evidence of any gross inflammatory bowel disease the examination is suboptimal In the rectum there were erythematous streaks suggestive of mild nonspecific proctitis biopsies taken with cold biopsy forceps There were also internal hemorrhoids seen without any gross bleeding ENDOSCOPIC IMPRESSION: Mild nonspecific proctitis Extremely poor prep with suboptimal examination but grossly no large lesions seen No evidence grossly of inflammatory bowel disease Internal hemorrhoids SUGGESTIONS: Await the biopsy results Stool softeners and symptomatic treatment Unable to explain all symptoms from the evaluation in case symptoms persist may need further evaluation or workup as necessary Thank you CLAY Lam MD Aug 02, 2024 13:19
[2024-08-02] MEDS ORDERED: DOX100T PO (18:21)
[2024-08-02] MEDS ORDERED: DICY10CA PO (18:21)
[2024-08-02] MEDS ORDERED: HYDR-4902 PO (18:21)
[2024-08-02] MEDS ORDERED: PANT40TA2 PO (18:21)
[2024-08-02] MEDS ORDERED: SUCR1SUS26 PO (18:21)
[2024-08-02] MEDS ORDERED: METO10TA3 PO (18:21)
[2024-08-02] MEDS ORDERED: POLYPOW59 PO (18:27)
[2024-08-02] MEDS ORDERED: SENN-62 PO (18:27)
--- NOTE | 2024-08-02 18:47 | DVHDS2 ---
Discharge Summary Date of Admission Jul 29, 2024 at 15:04 Date of Discharge: Aug 02, 2024 Labs/Diagnostic Data: Laboratory Results Test 08/02/24 05:25 08/02/24 04:53 08/01/24 19:57 07/30/24 04:36 POC Glucose 163 mg/dl (70-106) White Blood Count 9.4 10^3/uL (4.4-10.8) Red Blood Count 5.20 10^6/uL (4.5-5.90) Hemoglobin 15.7 g/dL (13.5-17.5) Hematocrit 44.1 % (41.0-53.0) Mean Corpuscular Volume 84.9 fL (80.0-100.0) Mean Corpuscular Hemoglobin 30.1 pg (28.0-32.0) Mean Corpuscular Hemoglobin Concent 35.5 g/dL (32.0-36.0) Red Cell Distribution Width 14.2 % (11.8-14.3) Platelet Count 254 10^3/uL (140-450) Mean Platelet Volume 9.1 fL (6.9-10.8) Neutrophils (%) (Auto) 65.6 % (37.0-80.0) Lymphocytes (%) (Auto) 20.0 % (10.0-50.0) Monocytes (%) (Auto) 12.3 % (0.0-12.0) Eosinophils (%) (Auto) 1.4 % (0.0-7.0) Basophils (%) (Auto) 0.7 % (0.0-2.0) Neutrophils # (Auto) 6.2 10 ^3/uL (1.6-8.6) Lymphocytes # (Auto) 1.9 10 ^3/uL (0.4-5.4) Monocytes # (Auto) 1.2 10 ^3/uL (0-1.3) Eosinophils # (Auto) 0.1 10 ^3/uL (0-0.8) Basophils # (Auto) 0.1 10 ^3/uL (0-0.2) Nucleated Red Blood Cells 0.1 % Sodium Level 139 mmol/L (136-145) Potassium Level 3.7 mmol/L (3.5-5.1) Chloride Level 104 mmol/L (98-107) Carbon Dioxide Level 28 mmol/L (20-31) Anion Gap 7 (5-15) Blood Urea Nitrogen 9 mg/dL (9-23) Creatinine 0.84 mg/dL (0.700-1.30) Glomerular Filtration Rate Calc 108 mL/min (>90) BUN/Creatinine Ratio 10.7 (10.0-20.0) Serum Glucose 133 mg/dL (74-106) Calcium Level 9.7 mg/dL (8.7-10.4) Total Bilirubin 1.1 mg/dL (0.2-1.0) Aspartate Amino Transferase (AST) 27 U/L (13-40) Alanine Aminotransferase (ALT) 33 U/L (7-40) Alkaline Phosphatase 79 U/L (46-116) Total Protein 7.5 g/dL (5.7-8.2) Albumin 4.6 g/dL (3.2-4.8) Prothrombin Time 11.4 sec (9.3-11.8) Prothrombin Time INR 1.08 (0.9-1.15) Activated Partial Thromboplast Time 29.7 SEC (24.5-34.5) Platelet Estimate Adequate Test 07/29/24 15:02 07/29/24 12:42 Urine Color Yellow (Yellow) Urine Clarity Turbid (Clear) Urine pH 5.5 (5.0-9.0) Urine Specific [place] 1.031 (1.001-1.035) Urine Protein 1+ (Negative) Urine Ketones Negative (Negative) Urine Blood Trace /uL (Negative) Urine Nitrite Negative (Negative) Urine Bilirubin Negative (Negative) Urine Urobilinogen Normal mg/dL (Negative) Urine Leukocyte Esterase Negative /uL (Negative) Urine RBC 2 /hpf (0 - 3) Urine Microscopic WBC 47 /HPF (0-3) Urine Squamous Epithelial Cells Few /hpf (<5) Urine Transitional Epithelial Cells Few /hpf (<2) Urine Bacteria None seen /hpf (None Seen) Urine Mucus Few (None Seen) Urine Glucose 3+ mg/dL (Normal) B-Type Natriuretic Peptide 101.19 pg/mL (0-100) Lipase 40 U/L (12-53) Other Laboratory Tests 08/02/24 04:53 Brief Hx & Hospital Course: summary: 07/30 - Krishna, 48-year-old male. With past medical history of CHF, hypertension, diabetes. Coming in with abdominal pain. He has had this abdominal pain for 4 years with acute worsening appears to be bilateral flank radiating to the epigastrium. No nausea and vomiting, no CVA tenderness, no dysuria or bladder pain. He has never had a EGD. Unclear what is causing current syndrome. CT abdomen is negative. UA with sterile pyuria. Patient has sirs. ? Wondering if this is PID versus ureaplasma/chlamydia sterile pyuria, we will try short course ceftriaxone and start doxycycline may finish outpatient. Malingering/factitious/somatic symptom disorder remain possibility. 07/31- patient continues to have pain. He keeps saying that he has masses on bilateral upper quadrants of abdomen but on palpation there is no masses. Abdomen is soft. He is tolerating p.o.. Pain is controllable with oral analgesia comes down to 5-6 out of 10. But he is still using some IV analgesia. Today small-bowel series with barium swallow was done, we will follow up with study results to assess gastric emptying time. He is feeling nauseous after barium intake and we are giving IV antiemetics. This could be musculoskeletal pain. We will try baclofen b.i.d.. He says he feels constipated but on CT abdomen there was no large burden of fecal matter. Patient has been having this pain for 4 months and recently started Mounjaro 3 weeks which could be worsening his pain. If there is no obstruction found we will also trial Reglan. 08/01- gastric emptying on barium swallow series is normal. All workup has been normal and unremarkable. Today on physical exam abdomen remains nontender nondistended soft vital signs is intact. Patient continues to persist that he has severe abdominal pain although appearing without distress. Discharge plan developed in afternoon and presented to patient where he starts to endorsed that he is now having emesis. And has blood in vomit .. We will get 1 eval with GI and possibly repeat CT abdomen and pelvis after GI eval, unless other studies indicated by GI. Start D5 half-normal maintenance, antiemetics Zofran, NPO, aspiration precautions,. Hold off Reglan, continue baclofen, continue ceftriaxone and doxycycline,. Continue Protonix IV and Carafate b.i.d.,. 08/02- initial plans of discharge yesterday but patient has started having emesis. GI was consulted. GI is has taken today for EGD and colon. On colon prep was poor but findings of internal hemorrhoids. Patient will have to repeat colonoscopy outpatient. EGD also done findings small hiatal hernia, esophagitis, gastritis. biopsy are taken for Hpylori concern. Patient's pain is tolerable with p.o. medications, patient is tolerating p.o., no further emesis. Patient agreeable to discharge plan as below. diagnosis: Intractable abdominal pain, resolving Intractable flank pain , resolving complicated cystitis likely, chlamydia and/or ureaplasma possible PUD ruled out Hpylori rule-out Sirs without end-organ damage Intravascular volume depletion , resolved Gastroenteritis, infectious etiology, resolving internal hemorrhoids Small Hiatal hernia Mild esophagitis LA classification B Mild antral gastritis Sterile pyuria, likely cystitis as above Musculoskeletal pain possible Psychosomatic pain possible History of CHF History hypertension History diabetes discharge plan: - Doxycycline 100 mg twice daily for 5 days - full liquid diet 1 week. advance there after. - clearsense powder daily for 10 days, senakotS 2x/day for 14 days, high fiber diet. - For stomach pain use Tylenol 1st line, second-line [place] 5 up to 3 times daily, - For nausea use Reglan 10 mg up to 3 times daily as needed - For abdominal cramps can use Bentyl, as needed Up to 3 times daily Continue Protonix 40 mg daily Continue Carafate suspension twice daily - Follow up with GI outpatient to review results and biopsy results - follow up with PCP to review discharge Condition at Discharge: Fair Final Diagnosis/Problems List Intractable abdominal pain, resolving Intractable flank pain , resolving complicated cystitis likely, chlamydia and/or ureaplasma possible PUD ruled out Hpylori rule-out Sirs without end-organ damage Intravascular volume depletion , resolved Gastroenteritis, infectious etiology, resolving internal hemorrhoids Small Hiatal hernia Mild esophagitis LA classification B Mild antral gastritis Sterile pyuria, likely cystitis as above Musculoskeletal pain possible Psychosomatic pain possible History of CHF History hypertension History diabetes Discharge Disposition: Home Discharge Instruct/Medications Diet: See Comment Diet comment: FLD full liquid diet 1 week Activity: No Restrictions, As Tolerated Follow Up/Referral: below Medications: below Discharge Statement: "Patient was advised to return to the ER or call 911 if any headaches, dizziness, shortness of breath, chest pain, abdominal pain, bleeding, fevers, or worsening of medical condition. Patient was counseled about treatment plan, medications, possible side effects, patientverbalized understanding. All questions were answered to the best of my ability. This discharge took greater then 30 minutes in planning, reviewing documentation, counseling the patient, and discussing with other team members." Date of Service: Aug 02, 2024 Billing Provider: CAROLINA OVALLE MD Common Visit Codes: 78729-IKD/OBS DISCH DAY >30min CAROLINA OVALLE MD Aug 02, 2024 18:47
[2024-08-03] VITALS (7 sets, daily range): BP systolic 128–165; BP diastolic 85–102; PULSE 80–93; RESP 18; TEMP 36.8; O2SAT 94–97
--- NOTE | 2024-08-03 13:52 | DVHPN2 ---
Reviewed: Care Plan, H&P, Labs, Medications, Previous Orders Changes from previous H/P or p: No Changes General: Per HPI Eyes: No Pain, No Vision change, No Conjunctivae inflammation, No Eyelid inflammation, No Other, No Redness ENT: No Ear pain, No Ear discharge, No Nose pain, No Nose discharge, No Nose congestion, No Mouth pain, No Mouth swelling, No Throat pain, No Throat swelling, No Other Cardiovascular: No Chest Pain, No Palpitations, No Orthopnea, No Paroxysmal Noc. Dyspnea, No Edema, No Lt Headedness, No Other Respiratory: No Cough, No Dry, No Shortness of breath, No SOB with excertion, No Wheezing, No Hemoptysis, No Pleuritic Pain, No Sputum, No Other Gastrointestinal: No Nausea, No Vomiting; Abdominal Pain, Diarrhea; No Constipation, No Melena, No Hematochezia; Other (abdomen distended) Genitourinary: No Dysuria, No Frequency, No Incontinence, No Hematuria, No Retention, No Other Musculoskeletal: No other, No neck pain, No shoulder pain, No arm pain, No back pain, No hand pain, No leg pain, No foot pain Skin: No Rash, No Lesions, No Jaundice, No Bruising, No Other Objective Vitals Vital Signs Date Time Temp Pulse Resp B/P (MAP) Pulse Ox O2 Delivery O2 Flow Rate FiO2 08/03/24 11:26 36.8 93 08/03/24 09:35 154/98 08/03/24 09:27 20 08/03/24 09:00 97 08/02/24 20:00 Room Air* 0 21 Intake/Output Intake and Output 08/03/24 07:00 Intake Total 705 ml Balance 705 ml Intake Oral 230 ml IV Total 475 ml # Voids 2 Medications Current Medications Medications Dose Ordered Sig/Jorge Route Start Time Stop Time Status Last Admin Dose Admin Aspirin 81 mg DAILY PO 07/30/24 10:00 08/03/24 09:34 81 MG Atorvastatin Calcium 20 mg HS PO 07/29/24 22:00 08/02/24 23:40 20 MG Furosemide 20 mg DAILY IV 07/30/24 10:00 08/03/24 09:34 20 MG Carvedilol 12.5 mg Q12HR PO 07/29/24 22:00 08/03/24 09:34 12.5 MG Hydralazine HCl 10 mg Q6HP PRN IV 07/29/24 15:15 08/03/24 04:34 10 MG Lisinopril 20 mg DAILY PO 07/30/24 10:00 08/03/24 09:35 20 MG Diagnostic Test (Pha) 1 strip ACHS 07/29/24 17:00 08/03/24 12:40 1 STRIP Insulin Human Regular HS SC 07/29/24 22:00 07/31/24 21:50 3 UNITS Insulin Human Regular AC SC 07/29/24 17:00 08/03/24 12:56 3 UNITS Dextrose 50 ml UD PRN IV 07/29/24 15:15 Sodium Chloride 10 ml Q8HR IV 07/29/24 22:00 08/03/24 06:17 10 ML Ondansetron HCl 4 mg Q4HP PRN IV 07/29/24 15:15 08/02/24 17:33 4 MG Docusate Sodium 100 mg BIDPRN PRN PO 07/29/24 15:15 07/31/24 19:58 100 MG Acetaminophen 650 mg Q6HP PRN PO 07/29/24 15:15 Nitroglycerin 0.4 mg Q5MINP PRN SL 07/29/24 15:15 Acetaminophen/ Hydrocodone Bitart 1 tab Q6HP PRN PO 07/30/24 12:00 08/03/24 04:36 1 TAB Hydromorphone HCl 0.5 mg Q4HPRN PRN IV 07/30/24 12:00 08/03/24 09:27 0.5 MG Pantoprazole Sodium 40 mg BID IV 07/30/24 22:00 08/03/24 09:30 40 MG Doxycycline Hyclate 100 ml @ 50 mls/hr Q12H IV 07/30/24 14:15 08/03/24 02:35 50 MLS/HR Sucralfate 1 gm BID@0600,2200 GT 07/30/24 22:00 08/03/24 06:14 1 GM Ceftriaxone Sodium 50 ml @ 100 mls/hr DAILY@09 IV 07/31/24 09:00 08/03/24 08:56 100 MLS/HR Baclofen 10 mg Q8HR PO 07/31/24 22:00 08/03/24 06:13 10 MG Dextrose/Sodium Chloride 1,000 ml @ 75 mls/hr [id number] IV 08/01/24 15:15 08/03/24 07:31 75 MLS/HR Laboratory Results Laboratory Tests 08/02/24 04:53 Urinalysis Test 07/29/24 15:02 Urine Color Yellow (Yellow) Urine Clarity Turbid (Clear) H Urine pH 5.5 (5.0-9.0) Urine Specific [place] 1.031 (1.001-1.035) Urine Protein 1+ (Negative) H Urine Ketones Negative (Negative) Urine Blood Trace /uL (Negative) H Urine Nitrite Negative (Negative) Urine Bilirubin Negative (Negative) Urine Urobilinogen Normal mg/dL (Negative) Urine Leukocyte Esterase Negative /uL (Negative) Urine RBC 2 /hpf (0 - 3) Urine Microscopic WBC 47 /HPF (0-3) H Urine Squamous Epithelial Cells Few /hpf (<5) Urine Transitional Epithelial Cells Few /hpf (<2) Urine Bacteria None seen /hpf (None Seen) Urine Mucus Few (None Seen) Urine Glucose 3+ mg/dL (Normal) H Microbiology Microbiology Date/Time Source Procedure Growth Status 08/01/24 08:25 Urine - Midstream Clean Catch Urine Culture - Final Complete Labs and/or images reviewed: Labs reviewed by me, Image(s) reviewed by me Assessment/Plan Assessment/Plan Covering for Dr. Carvalho Intractable abdominal pain, resolving Intractable flank pain , resolving complicated cystitis likely, chlamydia and/or ureaplasma possible PUD ruled out Hpylori rule-out Sirs without end-organ damage Intravascular volume depletion , resolved Gastroenteritis, infectious etiology, resolving internal hemorrhoids Small Hiatal hernia Mild esophagitis [place] classification B Mild antral gastritis Sterile pyuria, likely cystitis as above Musculoskeletal pain possible Psychosomatic pain possible History of CHF History hypertension History diabetes Patient was discharged yesterday Patient says he has "Waiting for the family to pick him up" Plan discussed with: Patient Date of Service: Aug 03, 2024 Billing Provider: NAZARIO OLGUIN MD Common Visit Codes: [id number] INP/OBS CARE(HIGH) NAZARIO OLGUIN MD Aug 03, 2024 13:52
[2024-08-03] MEDS: MAALOX PLUS or MAALOX 30 ML PO ONE (15:10)
--- NOTE | 2024-08-03 16:12 | DVHPN2 ---
Progress Note - Dictate Date Seen: Aug 03, 2024 Has the PT tested + for MRSA If YES, has PT been informed?: Yes Medical Necessity Reason Pt with a Central, PICC or Fol: Yes Subjective Patient is feeling better abdominal pains and decreased though still has some fullness in both the flanks No Nausea or vomiting vital signs Vital Sign Date Time Temp Pulse Resp B/P (MAP) Pulse Ox O2 Delivery O2 Flow Rate FiO2 08/03/24 14:49 91 20 147/92 08/03/24 13:00 97.2 97 97.2 08/02/24 20:00 Room Air* 0 21 Total Intake and Output 08/02/24 08/02/24 08/03/24 15:00 23:00 07:00 Intake Total 375 ml 100 ml 230 ml Balance 375 ml 100 ml 230 ml medications Current Medications Medications Dose Ordered Sig/Jorge Route Start Time Stop Time Status Last Admin Dose Admin Aspirin 81 mg DAILY PO 07/30/24 10:00 08/03/24 09:34 81 MG Atorvastatin Calcium 20 mg HS PO 07/29/24 22:00 08/02/24 23:40 20 MG Furosemide 20 mg DAILY IV 07/30/24 10:00 08/03/24 09:34 20 MG Carvedilol 12.5 mg Q12HR PO 07/29/24 22:00 08/03/24 09:34 12.5 MG Hydralazine HCl 10 mg Q6HP PRN IV 07/29/24 15:15 08/03/24 04:34 10 MG Lisinopril 20 mg DAILY PO 07/30/24 10:00 08/03/24 09:35 20 MG Diagnostic Test (Pha) 1 strip ACHS 07/29/24 17:00 08/03/24 12:40 1 STRIP Insulin Human Regular HS SC 07/29/24 22:00 07/31/24 21:50 3 UNITS Insulin Human Regular AC SC 07/29/24 17:00 08/03/24 12:56 3 UNITS Dextrose 50 ml UD PRN IV 07/29/24 15:15 Sodium Chloride 10 ml Q8HR IV 07/29/24 22:00 08/03/24 14:51 10 ML Ondansetron HCl 4 mg Q4HP PRN IV 07/29/24 15:15 08/02/24 17:33 4 MG Docusate Sodium 100 mg BIDPRN PRN PO 07/29/24 15:15 07/31/24 19:58 100 MG Acetaminophen 650 mg Q6HP PRN PO 07/29/24 15:15 Nitroglycerin 0.4 mg Q5MINP PRN SL 07/29/24 15:15 Acetaminophen/ Hydrocodone Bitart 1 tab Q6HP PRN PO 07/30/24 12:00 08/03/24 04:36 1 TAB Hydromorphone HCl 0.5 mg Q4HPRN PRN IV 07/30/24 12:00 08/03/24 14:49 0.5 MG Pantoprazole Sodium 40 mg BID IV 07/30/24 22:00 08/03/24 09:30 40 MG Doxycycline Hyclate 100 ml @ 50 mls/hr Q12H IV 07/30/24 14:15 08/03/24 15:03 50 MLS/HR Sucralfate 1 gm BID@0600,2200 GT 07/30/24 22:00 08/03/24 06:14 1 GM Ceftriaxone Sodium 50 ml @ 100 mls/hr DAILY@09 IV 07/31/24 09:00 08/03/24 08:56 100 MLS/HR Baclofen 10 mg Q8HR PO 07/31/24 22:00 08/03/24 14:51 10 MG Dextrose/Sodium Chloride 1,000 ml @ 75 mls/hr [id number] IV 08/01/24 15:15 08/03/24 07:31 75 MLS/HR objective Abdomen is soft nontender no masses Labs including H pylori pending Tolerating diet okay laboratory and microbiology Laboratory Tests 08/02/24 04:53 Test 08/02/24 04:53 Range/Units Serum Glucose 133 H 74-106 mg/dL Assessment/Plan This 48-year-old doing better patient has got some mild gastritis hiatal hernia esophagitis and some proctitis with poor prep with constipation We will recommend to treat with PPIs as well as some stool softeners and see the response. Patient is feeling better and will be able to go home from GI point of view Thank you Dr. Hanna Dietary Evaluation Review Recommendations by RD: Dietary education by RD Comments: 1) Encourage optimal PO intake 2) Advance to 60g CCHO cardiac diet when medically feasible 3) Collect HbA1c 4) Refer to outpatient RD/CDCES for weight management 5) Follow-up with gastroenterology and cardiology 6) Continue to monitor I&O, labs, and skin integrity Expected Outcomes/Goals: 1) appetite and labs to improve 2) diet to advance 3) f/u in 3-5 days Plan discussed with: Patient CLAY HANNA MD Aug 03, 2024 16:12
== END 2024-08-03 20:08 | disposition home or self-care (01) | DRG 241 ==
LOC: ER 11:58 → OVERFLOW 15:04 → TELE-EAST 07-30 14:57 → TELE-CENTR 08-02 21:00
PROVIDERS: ADMIT Student in an Organized Health Care Education/Training Program; ATTEND Student in an Organized Health Care Education/Training Program
PROC: 0DBP8ZX Excision of Rectum, Via Natural or Artificial Opening Endoscopic, Diagnostic (ICD-10-PCS; 2024-08-02)
PROC: 0DB58ZX Excision of Esophagus, Via Natural or Artificial Opening Endoscopic, Diagnostic (ICD-10-PCS; principal; 2024-08-02 12:21)
PROC: 0DB78ZX Excision of Stomach, Pylorus, Via Natural or Artificial Opening Endoscopic, Diagnostic (ICD-10-PCS; 2024-08-02 12:21)
DX: K29.70 Gastritis, unspecified, without bleeding (principal); R65.10 Systemic inflammatory response syndrome (SIRS) of non-infectious origin without acute organ dysfunction; I11.0 Hypertensive heart disease with heart failure; I50.9 Heart failure, unspecified; A09 Infectious gastroenteritis and colitis, unspecified; E86.9 Volume depletion, unspecified; E11.9 Type 2 diabetes mellitus without complications; E78.5 Hyperlipidemia, unspecified; A56.01 Chlamydial cystitis and urethritis; K20.90 Esophagitis, unspecified without bleeding; K64.8 Other hemorrhoids; I16.0 Hypertensive urgency; K44.9 Diaphragmatic hernia without obstruction or gangrene; K59.00 Constipation, unspecified; F45.9 Somatoform disorder, unspecified; F45.41 Pain disorder exclusively related to psychological factors; Z79.4 Long term (current) use of insulin; Z79.82 Long term (current) use of aspirin; Z79.899 Other long term (current) drug therapy; Z79.84 Long term (current) use of oral hypoglycemic drugs; Z80.7 Family history of other malignant neoplasms of lymphoid, hematopoietic and related tissues
CPT/HCPCS: 36415; 43239; 45380; 71045; 74176; 74250; 80053; 81001; 82962; 83690; 83880; 85025; 85610; 85730; 86850; 86900; 86901; 87086; 93005; 96374; 96375; G0378; J1815; J1885; J2405; J2470; J2704

== ENCOUNTER 2024-08-13 07:35 | Inpatient (IN) | payer MEDICAID ==
[~2024-08-13] VITALS: Ht 170.2 cm; Wt 106.4 kg
[~2024-08-13 07:35] MED LIST changes: -ACET-6 PO; +ASPI-325 PO; +CHOLCAP10 PO; +DICY10CA PO; +DOX100T PO; +HYDR-3682 PO; +HYDR-4902 PO; +INSU100I4 SC; +LINA145C PO; +METO10TA3 PO; +PANT40TA2 PO; +POLYPOW59 PO; +SENN-62 PO; +SUCR1SUS26 PO; -TIRZ2.5I SC; +TIRZ5INJ SC; +TRAZ-227 PO
--- NOTE | 2024-08-13 08:09 | ED.PDOC ---
HPI Comments 49 year old male with a Hx of HTN, CHF, and DM presents to the ED for the c/c of Chest pain. Pt states that he has had Squeezing and Pins and [place] sensation in his chest which associated N/, Left sided ABD pain, Light headedness and Wheezing since Monday with no alleviating factors at this time. No other associated symptoms, modifiers, recent injuries or sick contacts present at this time. Time Seen by MD: 08:05 Primary Care Provider: luis manuel Reviewed Notes: Nurses Notes, Medications, Allergies Allergies: Coded Allergies: No Known Drug Allergy (Verified Allergy, Unknown, 12/24/23) Home Meds Active Scripts Sennosides-Docusate Sodium (Senokot S) 1 Tab Tab, 1 TAB PO BID for 14 Days, #30 TAB 0 Refills Prov:CAROLINA OVALLE MD 08/02/24 Polyethylene Glycol 3350 (Goodsense Clearlax) 17 Gm/Scoop Pow, 17 GM PO DAILY for 10 Days, #17.9 POW 0 Refills Prov:CAROLINA OVALLE MD 08/02/24 Sucralfate (CARAFATE SUSP) 1 Gm/10 Ml Ss, 10 ML PO BID for 30 Days, #600 ML 0 Refills Prov:CAROLINA OVALLE MD 08/02/24 Pantoprazole Sodium Sesquihydr (Protonix) 40 Mg Tab, 40 MG PO DAILY for 30 Days, #30 TAB 1 Refill Prov:CAROLINA OVALLE MD 08/02/24 Doxycycline Monohydrate (Doxycycline Monohydrate) 100 Mg Tab, 100 MG PO BID for 5 Days, #10 TAB 0 Refills Prov:CAROLINA OVALLE MD 08/02/24 Dicyclomine Hcl (BENTYL CAPSULE) 10 Mg Cp, 1 CAP PO Q6HPRN PRN, #30 CAP 0 Refills Prov:CAROLINA OVALLE MD 08/02/24 Metoclopramide Hcl (Metoclopramide Hcl) 10 Mg Tab, 10 MG PO TIDP PRN for 7 Days, #21 TAB 0 Refills Prov:CAROLINA OVALLE MD 08/02/24 Hydrocodone-Acetaminophen (Hydrocodone Bitartrate/AC 5-325 mg) 1 Tab Tab, 1 TAB PO TIDP PRN for 7 Days, #20 TAB 0 Refills Prov:CAROLINA OVALLE MD 08/02/24 Carvedilol (COREG) 3.125 Mg Tab, 6.25 MG PO BID for 30 Days, #120 TAB [facility] 12/28/23 Insulin Glargine (Lantus) 100 Unit/Ml Inj, 35 UNITS SC BID@1000,2200 for 30 Days, #1 INJ [facility] 12/28/23 Acetaminophen (Acetaminophen) 325 Mg Tab, 325 MG PO Q4HP PRN for 7 Days, #35 TAB [facility] 12/28/23 Aspirin (Aspirin Low Dose) 81 Mg Chw, 1 TAB PO DAILY for 30 Days, #30 TAB 3 [facility] 12/28/23 Glipizide (Glipizide) 10 Mg Tab, 1 TAB PO BID for 30 Days, #60 TAB 5 [facility] 12/28/23 Ondansetron Odt 4MG Tab (ZOFRAN PO) 4 Mg Tb, 4 MG PO QID PRN for 7 Days, #28 TAB ODT TAB-DISSOLVE IN MOUTH, THEN SWALLOW Prov[facility] 12/28/23 Lisinopril (Lisinopril) 20 Mg Tab, 20 MG PO DAILY for 30 Days, #30 TAB [facility] 12/28/23 Furosemide (Furosemide) 20 Mg Tab, 20 MG PO BIDD for 30 Days, #60 TAB [facility] 12/28/23 Ergocalciferol (VITAMIN D 67063 UNIT) 50,000 [place], [address] UNIT PO Q7D for 30 Days, #30 CAP [facility] 12/28/23 Empagliflozin (Jardiance) 10 Mg Tab, 10 MG PO DAILY for 30 Days, #30 TAB [facility] 12/28/23 Atorvastatin Calcium (ATORVASTATIN CALCIUM) 20 Mg Tab, 40 MG PO HS for 30 Days, #60 TAB [facility] 12/28/23 Reported Medications Nitroglycerin (NTROSTAT SUBLINGUAL) 0.4 Mg Sl, 0.4 MG SL PRN, TAB *MAY REPEAT EVERY 5 MINUTES X 3 TOTAL IF NO RELIEF, INITIATE ANALGESIC THERAPY. NOTIFY PHYSICIAN *Do not crush. 12/25/23 Insulin Glargine (Basaglar Kwikpen) 100 Unit/Ml Inj, 100 UNIT SC, INJ 12/25/23 Tramadol Hcl (Tramadol Hcl) 50 Mg Tab, 50 MG PO, TAB 12/25/23 Information Source: Patient Mode of Arrival: Ambulatory Severity: Moderate Timing: Hours Duration: Since onset, Hours Prehospital treatment: None Location: Chest (L) Radiation: Abdomen Quality: Sharp, Stabbing, Pressure Onset: At Rest Cardiac Risk Factors: HTN PE Risk Factors: None History of: None Modifying Factors: Exertion Associated Signs and Symptoms: Abdominal Pain Past Medical History PAST MEDICAL HISTORY: CHF, DM, HTN Surgical History: Denies all surgeries Family History Family History: Reviewed,noncontributory to illness Social History Smoker: Non-Smoker Alcohol: Denies ETOH Use Drugs: Denies Drug Use Lives In: Home Constitutional: denies: chills, diaphoresis, fatigue, fever, malaise, sweats, w eakness, others EENTM: denies: blurred vision, double vision, ear bleeding, ear discharge, ear drainage, ear pain, ear ringing, eye pain, eye redness, hearing loss, mouth pain, mouth swelling, nasal discharge, nose bleeding, nose congestion, nose pain, photophobia, tearing, throat pain, throat swelling, voice changes, others Respiratory: denies: cough, hemoptysis, orthopnea, SOB at rest, shortness of breath, SOB with excertion, stridor, wheezing, others Cardiovascular: reports: chest pain; denies: dizzy spells, diaphoresis, Dyspnea on exertion, edema, irregular heart beat, left arm pain, lightheadedness, palpitations, PND, syncope, others Gastrointestinal: reports: abdomen distended; denies: abdominal pain, blood streaked bowels, constipated, diarrhea, dysphagia, difficulty swallowing, hematemesis, melena, nausea, poor appetite, poor fluid intake, rectal bleeding, rectal pain, vomiting, others Genitourinary: denies: burning, dysuria, flank pain, frequency, hematuria, incontinence, penile discharge, penile sore, pain, testicle pain, testicle swelling, urgency, others Neurological: denies: dizziness, fainting, headache, left sided numbness, left sided weakness, numbness, paresthesia, pre-existing deficit, right sided numbness, right sided weakness, seizure, speech problems, tingling, tremors, weakness, others Musculoskeletal: denies: back pain, gout, joint pain, joint swelling, muscle pain, muscle stiffness, neck pain, others Integumetry: denies: bruises, change in color, change in hair/nails, dryness, laceration, lesions, lumps, rash, wounds, others Allergic/Immunocompromised: denies: Difficulty Healing, Frequent Infections, Hives, Itching, others Hematologic/Lymphatic: denies: anemia, blood clots, easy bleeding, easy bruising, swollen glands, others Endocrine: denies: excessive hunger, excessive sweating, excessive thirst, excessive urination, flushing, intolerance to cold, intolerance to heat, unexplained weight gain, unexplained weight loss, others Psychiatric: denies: anxiety, bipolar disorder, depression, hopeless, panic disorder, schizophrenia, sleepless, suicidal, others All Other Systems: Reviewed and Negative Physical Exam General Appearance: Mild Distress, Normal, Obese HEENT: Normal ENT Inspection, Pharynx Normal, TMs Normal Neck: Full Range of Motion, Non-Tender, Normal, Normal Inspection Respiratory: Chest Non-Tender, Lungs Clear, No Accessory Muscle Use, No Respiratory Distress, Normal Breath Sounds Cardiovascular: No Edema, No JVD, No Murmur, No Gallop, Normal Peripheral Pulses, Regular Rate/Rhythm Breast Exam: Deferred Gastrointestinal: Non Tender, No Pulsatile Mass, Normal Bowel Sounds, Soft Genitalia: Deferred Pelvic: Deferred Rectal: Deferred Extremities: No calf tenderness, Normal capillary refill, Normal inspection, Normal range of motion, Non-tender, No pedal edema Musculoskeletal : Apperance: Normal Neurologic: Alert, die lay out worker II-XII nml as Tested, No Motor Deficits, Normal Mood Cerebellar Function: Normal Reflexes: Normal Skin: Dry, Normal Color, Warm Lymphatic: No Adenopathy Was a procedure done? Was a procedure done?: No CP Differential Dx Differential Diagnosis: Angina, Anxiety / Panic Attack, Atrial Dysrhythmia, Electrolyte Disorder, Heart Failure, Sinus Tachycardia Differential Diagnosis: CHF Differential Diagnosis: Angina, Aortic dissection, Chest Wall Pain, Cholelithiasis, Gastritis, Myocardial Infarction, Pneumonia, Pneumothorax, Pulmonary Embolus X-Ray, Labs, Meds, VS Vital Signs Date Time Temp Pulse Resp B/P (MAP) Pulse Ox O2 Delivery O2 Flow Rate FiO2 08/13/24 08:37 105 12 94 Room Air* 0 21 08/13/24 08:36 98.0 105 12 225/142 (169) 94 98.0 08/13/24 07:42 98.1 111 18 207/108 (141) 95 98.1 195/125 (148) Lab Test 08/13/24 08:22 08/13/24 07:51 Range/Units White Blood Count 8.4 4.4-10.8 10^3/uL Red Blood Count 5.14 4.5-5.90 10^6/uL Hemoglobin 15.6 13.5-17.5 g/dL Hematocrit 43.8 41.0-53.0 % Mean Corpuscular Volume 85.2 80.0-100.0 fL Mean Corpuscular Hemoglobin 30.4 28.0-32.0 pg Mean Corpuscular Hemoglobin Concent 35.6 32.0-36.0 g/dL Red Cell Distribution Width 14.1 11.8-14.3 % Platelet Count 256 140-450 10^3/uL Mean Platelet Volume 8.4 6.9-10.8 fL Neutrophils (%) (Auto) 65.0 37.0-80.0 % Lymphocytes (%) (Auto) 20.4 10.0-50.0 % Monocytes (%) (Auto) 10.8 0.0-12.0 % Eosinophils (%) (Auto) 2.8 0.0-7.0 % Basophils (%) (Auto) 1.0 0.0-2.0 % Neutrophils # (Auto) 5.4 1.6-8.6 10 ^3/uL Lymphocytes # (Auto) 1.7 0.4-5.4 10 ^3/uL Monocytes # (Auto) 0.9 0-1.3 10 ^3/uL Eosinophils # (Auto) 0.2 0-0.8 10 ^3/uL Basophils # (Auto) 0.1 0-0.2 10 ^3/uL Nucleated Red Blood Cells 0.0 % Urine Color Pending Urine Clarity Pending Urine pH Pending Urine Specific [place] Pending Urine Protein Pending Urine Ketones Pending Urine Blood Pending Urine Nitrite Pending Urine Bilirubin Pending Urine Urobilinogen Pending Urine Leukocyte Esterase Pending Urine RBC Pending Urine Microscopic WBC Pending Urine Squamous Epithelial Cells Pending Urine Bacteria Pending Urine Glucose Pending Sodium Level 144 136-145 mmol/L Potassium Level 3.7 3.5-5.1 mmol/L Chloride Level 109 H 98-107 mmol/L Carbon Dioxide Level 24 20-31 mmol/L Anion Gap 11 5-15 Blood Urea Nitrogen 12 9-23 mg/dL Creatinine 1.06 0.700-1.30 mg/dL Glomerular Filtration Rate Calc 86 >90 mL/min BUN/Creatinine Ratio Pending Serum Glucose 166 H 74-106 mg/dL Calcium Level 9.8 8.7-10.4 mg/dL Troponin I High Sensitivity 9 </=54 ng/L POC Glucose 171 H 70-106 mg/dl PATIENT: EULOGIO LAUGHLIN ACCT: [id number] UNIT: [id number] : 1975 LOC: ER ROOM / BED: / AGE / SEX: 49 / M ADM STATUS: REG ER SERVICE 0800 ORDERING PHYSICIAN: YUE IRVIN MD PROCEDURE(s): CXRP - CHEST PORTABLE REASON: chest pain ORDER NUMBER(s): [id number], ACCESSION NUMBER(s): [id number] XY CHEST PORTABLE, HISTORY: chest pain COMPARISON: XY CHEST PORTABLE on DOS: 08/02/24, XY CHEST XRAY 1 VIEW on DOS: 12/25/23 XY CHEST PORTABLE on DOS: 08/02/24, XY CHEST XRAY 1 VIEW on DOS: 12/25/23 TECHNICAL DATA: 1 view of the chest was obtained. FINDINGS: Lines and tubes: None Cardiomediastinal silhouette: normal Pulmonary vasculature: normal Lung expansion: normal Lung airspace: Possible right upper lobe pulmonary nodule similar to prior. Lung interstitium: normal Pleura: normal Pneumothorax: no Bones: Unremarkable Other: no IMPRESSION: No acute intrathoracic abnormality. Possible right upper lobe pulmonary nodule similar to prior. Time of 1ST Reevaluation: 08:36 Reevaluation 1ST: Unchanged Patient Education/Counseling: Diagnosis, Treatment Family Education/Counseling: No Family Present SEPSIS Sepsis Screen Orders/Vitals/Labs Physician Orders Basic Metabolic Panel (08/13/24 08:00) Urinalysis (08/13/24 08:00) Chest Portable (08/13/24 08:00) Electrocardigram (08/13/24 08:00) Troponin-I Hs (08/13/24 09:00) Troponin-I Hs (08/13/24 11:00) Electrocardigram (08/13/24 09:00) Electrocardigram (08/13/24 11:00) Vital Signs Date Time Temp Pulse Resp B/P (MAP) Pulse Ox O2 Delivery O2 Flow Rate FiO2 08/13/24 08:37 105 12 94 Room Air* 0 21 08/13/24 08:36 98.0 105 12 225/142 (169) 94 98.0 08/13/24 07:42 98.1 111 18 207/108 (141) 95 98.1 195/125 (148) Laboratory Tests Test 08/13/24 08:22 White Blood Count 8.4 10^3/uL (4.4-10.8) Departure 1 Departure Time of Disposition: 09:34 (Patient presented with hypertension and symptoms concerning for hypertensive emergency. Patient is receiving iv blood pressure medications requiring intensive monitoring. Data: 1. I ordered and reviewed the result of at least 3 labs including a CBC, BMP, and Urinalysis. 2. I indepen dently interpreted the following tests: CT Brain: Which appears benign. EKG which is Normal Sinus RhythmRisk:This patient has a high risk of morbidity due to further diagnostic testing or treatment and may suffer from an acute cardiac disorder. Workup reveals hypertensive emergency and patient should be admitted for further workup. and possible expert consultation. ) Impression: Primary Impression: Hypertensive emergency Additional Impressions: Acute chest pain Left flank pain Disposition: ADMITTED INPATIENT Admit to: Med Surg Condition: Serious Critical Care Note Critical Care Time?: Yes Critical care comment: Hypertensive emergency Authorized and Performed by: Yue Irvin MD Total critical care time: Approximately 42 minutes Due to a high probability of clinically significant, life threatening det erioration, the patient required my highest level of preparedness to intervene emergently and I personally spent this critical care time directly and personally managing the patient. This critical care time included obtaining a history; examining the patient; pulse oximetry; ordering and review of studies; arranging urgent treatment with development of a management plan; evaluation of patient's response to treatment; frequent reassessment; and, discussions with other providers. This critical care time was performed to assess and manage the high probability of imminent, life-threatening deterioration that could result in multi-organ failure. It was exclusive of separately billable procedures and treating other patients and teaching time. Please see my other sections and the rest of the note for further information on patient assessment and treatment. Stability Stability form required: No Heart Score Heart Score: Heart Score Response (Comments) Value History Moderate Suspicious 1 EKG N/A 0 Age 45-64 1 Risk Factors 1 or 2 risk factors 1 Troponin >3 x's Normal limit 2 Total 5 I personally scribed for YUE IRVIN MD ([email or web address]) on 08/13/24 at 08:09. Elect ronically submitted by Anshul Blair ([email or web address]). I personally scribed for YUE IRVIN MD (LEON) on 08/13/24 at 09:16. Elec tronically submitted by Anshul Blair ([email or web address]). I personally scribed for YUE IRVIN MD ([email or web address]) on 08/13/24 at 09:17. Rebeca ctronically submitted by Anshul Blair ([email or web address]). YUE IRVIN MD Aug 13, 2024 08:09
[2024-08-13 08:37] VITALS: PULSE 105; RESP 12; O2SAT 94
[2024-08-13 08:39] LABS: Basophils # (auto) 0.1 10 ^3/uL (0-0.2); Eosinophils # (auto) 0.2 10 ^3/uL (0-0.8); Eosinophils % (auto) 2.8 % (0.0-7.0); Hematocrit 43.8 % (41.0-53.0); Hemoglobin 15.6 g/dL (13.5-17.5); Lymphocytes # (auto) 1.7 10 ^3/uL (0.4-5.4); Lymphocytes % (auto) 20.4 % (10.0-50.0); Mean Corpuscular Hemoglobin 30.4 pg (28.0-32.0); Mean Corpuscular Hgb Conc. 35.6 g/dL (32.0-36.0); Mean Corpuscular Volume 85.2 fL (80.0-100.0); Monocytes # (auto) 0.9 10 ^3/uL (0-1.3); Monocytes % (auto) 10.8 % (0.0-12.0); Neutrophils # (auto) 5.4 10 ^3/uL (1.6-8.6); Platelet Count (auto) 256 10^3/uL (140-450); Red Blood Cells 5.14 10^6/uL (4.5-5.90); Red Cell Distribution Width 14.1 % (11.8-14.3); White Blood Cell 8.4 10^3/uL (4.4-10.8)
[2024-08-13 08:48] LABS: Potassium 3.7 mmol/L (3.5-5.1); Sodium 144 mmol/L (136-145)
[2024-08-13 08:49] LABS: Anion Gap 11 (5-15); Calcium 9.8 mg/dL (8.7-10.4); Carbon Dioxide 24 mmol/L (20-31)
[2024-08-13 08:50] LABS: Chloride 109 mmol/L (98-107)
[2024-08-13 08:54] LABS: Blood Urea Nitrogen 12 mg/dL (9-23)
[2024-08-13 08:55] LABS: Glucose 166 mg/dL (74-106)
--- NOTE | 2024-08-13 09:12 | DVH ---
XY CHEST PORTABLE, HISTORY: chest pain COMPARISON: XY CHEST PORTABLE on DOS: 08/02/24, XY CHEST XRAY 1 VIEW on DOS: 12/25/23 XY CHEST PORTABLE on DOS: 08/02/24, XY CHEST XRAY 1 VIEW on DOS: 12/25/23 TECHNICAL DATA: 1 view of the chest was obtained. FINDINGS: Lines and tubes: None Cardiomediastinal silhouette: normal Pulmonary vasculature: normal Lung expansion: normal Lung airspace: Possible right upper lobe pulmonary nodule similar to prior. Lung interstitium: normal Pleura: normal Pneumothorax: no Bones: Unremarkable Other: no IMPRESSION: No acute intrathoracic abnormality. Possible right upper lobe pulmonary nodule similar to prior.
[2024-08-13 09:42] LABS: BUN/Creatinine Ratio 11.3 (10.0-20.0)
[2024-08-13] MEDS: ONDANSETRON HCL 4 MG/2 ML VIAL IV ONE (10:05)
[2024-08-13] MEDS: hydrALAZINE HCL 20 MG/ML VL IV ONE (10:06)
[2024-08-13] MEDS: SODIUM CHLORIDE 0.9% 1,000 ML IV ONE (10:07)
[2024-08-13] MEDS: MORPHINE SULFATE 4 MG/ML SYR/VIAL IV ONE (10:07)
[2024-08-13 10:29] LABS: Urine Blood TRACE /uL (Negative); Urine Clarity Turbid (Clear); Urine Color Yellow (Yellow); Urine Hyaline Cast MOD /lpf (0 - 2); Urine Mucus FEW (None Seen); Urine Protein, UAD TRACE (Negative); Urine Specific Gravity 1.024 (1.001-1.035); Urine Squamous Epithelial Cell FEW /hpf (<5); Urine Urobilinogen Normal (Negative); Urine WBC 11 /HPF (0-3)
[2024-08-13] MEDS ORDERED: CARV3.1240 PO (11:14)
[2024-08-13] MEDS ORDERED: DOCUSATE SOD 100 MG CAP PO PRN (11:15)
[2024-08-13] MEDS ORDERED: NITROGLYCERIN 0.4 MG SL TAB SL PRN (11:15)
--- NOTE | 2024-08-13 11:28 | DVHHP2 ---
History of Present Illness Reason for Visit: Abdominal Pain History of Present Illness Otis Krishna is a 49-year-old male with past medical history of hypertension, diabetes, and CHF, who comes to the hospital frequently with complaints of abdominal pain. Patient has been seen frequently for similar complaints. Last admission an EGD and colonoscopy was completed. Both test did not show any abnormalities. Smoke: No ALCOHOL: none Drugs: None Lives: with Family Domestic Violence: Neg Review of Systems Constitutional: No: Fever, Chills, Sweats, Weakness, Malaise, Other Eyes: No: Pain, Vision change, Conjunctivae inflammation, Eyelid inflammation, Other, Redness ENT: No: Ear pain, Ear discharge, Nose pain, Nose discharge, Nose congestion, Mouth pain, Mouth swelling, Throat pain, Throat swelling, Other Respiratory: No: Cough, Dry, Shortness of breath, SOB with excertion, Wheezing, Hemoptysis, Pleuritic Pain, Sputum, Wheezing, Other Cardiovascular: No: Chest Pain, Palpitations, Orthopnea, Paroxysmal Noc. Dyspnea, Edema, Lt Headedness, Other Gastrointestinal: Nausea, Abdominal Pain (Complains of left abdominal pain that radiates to his flank); No: Vomiting, Diarrhea, Constipation, Melena, Hem atochezia, Other Genitourinary: No Dysuria, No Frequency, No Incontinence, No Hematuria, No Retention, No Other Musculoskeletal: No: other, neck pain, shoulder pain, arm pain, back pain, hand pain, leg pain, foot pain Skin: No: Rash, Lesions, Jaundice, Bruising, Other Neurological: No: Weakness, Numbness, Incoordination, Change in speech, Confusion, Seizures, Other Allergies: Coded Allergies: No Known Drug Allergy (Verified Allergy, Unknown, 12/24/23) Medications Current Medications Medications Dose Ordered Sig/Jorge Route Start Time Stop Time Status Last Admin Dose Admin Sodium Chloride 10 ml Q8HR IV 08/13/24 14:00 UNV Acetaminophen/ Hydrocodone Bitart 1 tab Q4HP PRN PO 08/13/24 11:15 UNV Ondansetron HCl 4 mg Q4HP PRN IV 08/13/24 11:15 UNV Docusate Sodium 100 mg BIDPRN PRN PO 08/13/24 11:15 UNV Acetaminophen 650 mg Q6HP PRN PO 08/13/24 11:15 UNV Nitroglycerin 0.4 mg Q5MINP PRN SL 08/13/24 11:15 UNV Morphine Sulfate 2 mg Q30M PRN IV 08/13/24 11:15 UNV Insulin Glargine 35 units BID@1000,2200 SC 08/13/24 22:00 UNV Lisinopril 20 mg DAILY PO 08/14/24 10:00 UNV Exam Vital Signs Vital Signs Date Time Temp Pulse Resp B/P (MAP) Pulse Ox O2 Delivery O2 Flow Rate FiO2 08/13/24 10:07 105 18 225/142 08/13/24 08:37 94 Room Air* 0 21 08/13/24 08:36 98.0 98.0 General Appearance: Alert, Oriented X3, Cooperative, mild distress HEENT: Atraumatic, PERRLA Respiratory: Clear to auscultation, Normal air movement Cardiovascular: Normal S1, Normal S2, No murmurs, Other (ST, hypertensive) Abdominal: Normal bowel sounds, Soft, Other (Complains of left abdominal pain that radiates to his flank) Extremities: No clubbing, No cyanosis, No edema, Normal pulses, No tend erness/swelling Skin: No rashes, No breakdown, No significant lesion Neuro: Normal gait, Normal speech, Strength at 5/5 X4 ext Psych/Mental Status: Mental status NL, Mood NL Labs/Xrays Labs Test 08/13/24 09:31 08/13/24 08:22 08/13/24 07:51 Range/Units Troponin I High Sensitivity 9 </=54 ng/L White Blood Count 8.4 4.4-10.8 10^3/uL Red Blood Count 5.14 4.5-5.90 10^6/uL Hemoglobin 15.6 13.5-17.5 g/dL Hematocrit 43.8 41.0-53.0 % Mean Corpuscular Volume 85.2 80.0-100.0 fL Mean Corpuscular Hemoglobin 30.4 28.0-32.0 pg Mean Corpuscular Hemoglobin Concent 35.6 32.0-36.0 g/dL Red Cell Distribution Width 14.1 11.8-14.3 % Platelet Count 256 140-450 10^3/uL Mean Platelet Volume 8.4 6.9-10.8 fL Neutrophils (%) (Auto) 65.0 37.0-80.0 % Lymphocytes (%) (Auto) 20.4 10.0-50.0 % Monocytes (%) (Auto) 10.8 0.0-12.0 % Eosinophils (%) (Auto) 2.8 0.0-7.0 % Basophils (%) (Auto) 1.0 0.0-2.0 % Neutrophils # (Auto) 5.4 1.6-8.6 10 ^3/uL Lymphocytes # (Auto) 1.7 0.4-5.4 10 ^3/uL Monocytes # (Auto) 0.9 0-1.3 10 ^3/uL Eosinophils # (Auto) 0.2 0-0.8 10 ^3/uL Basophils # (Auto) 0.1 0-0.2 10 ^3/uL Nucleated Red Blood Cells 0.0 % Urine Color Yellow Yellow Urine Clarity Turbid H Clear Urine pH 6.0 5.0-9.0 Urine Specific [place] 1.024 1.001-1.035 Urine Protein Trace H Negative Urine Ketones Negative Negative Urine Blood Trace H Negative /uL Urine Nitrite Negative Negative Urine Bilirubin Negative Negative Urine Urobilinogen Normal Negative mg/dL Urine Leukocyte Esterase Negative Negative /uL Urine RBC 1 0 - 3 /hpf Urine Microscopic WBC 11 H 0-3 /HPF Urine Squamous Epithelial Cells Few <5 /hpf Urine Bacteria None Seen /hpf Urine Hyaline Casts Mod 0 - 2 /lpf Urine Mucus Few None Seen Urine Glucose Trace Normal mg/dL Sodium Level 144 136-145 mmol/L Potassium Level 3.7 3.5-5.1 mmol/L Chloride Level 109 H 98-107 mmol/L Carbon Dioxide Level 24 20-31 mmol/L Anion Gap 11 5-15 Blood Urea Nitrogen 12 9-23 mg/dL Creatinine 1.06 0.700-1.30 mg/dL Glomerular Filtration Rate Calc 86 >90 mL/min BUN/Creatinine Ratio 11.3 10.0-20.0 Serum Glucose 166 H 74-106 mg/dL Calcium Level 9.8 8.7-10.4 mg/dL POC Glucose 171 H 70-106 mg/dl XY CHEST PORTABLE, FINDINGS: Lines and tubes: None Cardiomediastinal silhouette: normal Pulmonary vasculature: normal Lung expansion: normal Lung airspace: Possible right upper lobe pulmonary nodule similar to prior. Lung interstitium: normal Pleura: normal Pneumothorax: no Bones: Unremarkable Other: no IMPRESSION: No acute intrathoracic abnormality. Possible right upper lobe pulmonary nodule similar to prior. Assessment/Plan Assessment/Plan Assessment: Hypertensive emergency, Intractable abdominal pain, Diabetes, CHF, Plan: Admit to Tele, CT abdomen/pelvis with contrast, Antihypertensives, PRN antihypertensives, Antiemetics, Pain management, Home medications reconciled, Plan discussed with: Patient My Orders Orders - ELIZABETH WHITE [employer] Procedure Category Date Status Time Admit ADMIT 08/13/24 Transmitted 11:08 Code Status CODE 08/13/24 Transmitted 11:08 Sodium Chloride Lock PHA 08/13/24 Logged (Saline Lock Ns) 14:00 Hydrocodone-Acet PHA 08/13/24 Logged 5/325mg Tab ([place] 11:15 Ondansetron Hcl PHA 08/13/24 Logged (Zofran) 11:15 Docusate Sodium PHA 08/13/24 Logged Capsule (Colace 11:15 Complete Blood Count LAB 08/14/24 Verified 04:00 Comprehensive LAB 08/14/24 Verified Metabolic Panel 04:00 Cardiac DIET 08/13/24 Transmitted Diet-2gna,Lofat,Lochol Lunch Condition: Serious JASWANT 08/13/24 In Process 11:08 Acetaminophen Tablet PHA 08/13/24 Logged (Tylenol Tablet) 11:15 Nitroglycerin PHA 08/13/24 Logged Sublingual (Ntrostat 11:15 Morphine Sulfate PHA 08/13/24 Logged Injection 11:15 Stat Ekg For Chest [facility] 08/13/24 In Process Pain 11:08 Notify Md Of Changes [facility] 08/13/24 In Process From Base 11:08 Extractor Filler For [facility] 08/13/24 In Process 24 Hours 11:08 Emergency Dysrhythmia [facility] 08/13/24 In Process Protocol 11:08 Rhythm Strips Once [facility] 08/13/24 In Process Every Shift 11:08 Oxygen By Nasal RT 08/13/24 Transmitted Cannula 11:08 Insulin Lantus PHA 08/13/24 Logged (Glargine) (Lantus) 22:00 Lisinopril Tablet PHA 08/14/24 Logged (Zestril Tablet) 10:00 Carvedilol Tablet PHA 08/13/24 Verified (Coreg Tablet) 22:00 Date of Service: Aug 13, 2024 Billing Provider: ELIZABETH WHITE Common Visit Codes: [id number] INP/OBS CARE (MOD) ELIZABETH WHITE Aug 13, 2024 11:28
[2024-08-13] MEDS: IOHEXOL 300 MG/ML 100ML BOTTLE IJ ONE (11:38)
[2024-08-13] MEDS: LISINOPRIL 20 MG TAB PO ONE (12:14)
--- NOTE | 2024-08-13 12:22 | DVH ---
Exam: CT CT AB PEL WITH IV CON ONLY History: abdominal pain, left Comparison Study: CT CT AB PEL WITH IV CON ONLY on DOS: 07/21/24 TECHNIQUE: Multidetector CT of the abdomen was performed from lung bases to pubic symphysis. Imaging was performed without IV contrast. Axial, coronal and sagittal multiplanar reformats were obtained fr om the axial data set by the technologist. Radiation dose : 1. Abdomen/Pelvis: CTDIvol 22.32 mGy, DLP 1176.48 mGy*cm. FINDINGS: Evaluation of solid organs is limited due to lack of intravenous contrast use. Findings: Lung Bases: No acute or significant lung base finding. Normal heart size. No pleural or pericardial effusion. Liver: The liver is normal in size. No focal lesions. Gallbladder and biliary Tree: Unremarkable Spleen: Unremarkable Pancreas: The pancreas is grossly normal in appearance. Adrenal Glands: Unremarkable Kidneys: Kidneys are grossly normal without calculi or hydronephrosis. Bladder: Grossly unremarkable for degree of distention. Bowel: The stomach is grossly normal in appearance. Small bowel and colon are normal in caliber and d istribution. The appendix is filled with multiple appendicoliths, but there is no appendiceal wall t hickening, dilation, or surrounding inflammatory changes. Ascites: Absent Lymphadenopathy: No mesenteric, retroperitoneal or periportal lymphadenopathy. Abdominal wall and Mesentery: Unremarkable. Vasculature: The visualized abdominal aorta is normal in size and caliber. Evaluation of abdominal a nd pelvic vessels is limited due to lack of intravenous contrast. Pelvic Organs: Unremarkable Musculoskeletal: No aggressive focal bony lesions, acute fractures or dislocation. Soft tissues: Unremarkable IMPRESSION: 1. No acute abdominal or pelvic finding. 2. Radiation optimization: All CT scans at this facility use at least one of these dose optimization techniques: automated exposure control mA and/or kV adjustment per patient size (includes targeted e xams where dose is matched to clinical indication) or iterative reconstruction.
[2024-08-13] MEDS: SODIUM CHLOR 0.9% PF (SALINE LOCK) 10ML VIAL/SYR IV SCH (14:12)
[2024-08-13] MEDS: ONDANSETRON HCL 4 MG/2 ML VIAL IV PRN (15:29)
[2024-08-13] MEDS: NIFEdipine ER 30 MG TAB PO ONE (15:29)
[2024-08-13] MEDS: MORPHINE SULFATE INJ 2 MG/ml SYRG IV PRN (15:30)
[2024-08-13] MEDS: cloNIDine HCL 0.1 MG TAB PO ONE (17:05)
[2024-08-13] MEDS ORDERED: DEXTROSE (50%) 50ML SYRG IV PRN (17:15)
[2024-08-13] MEDS: hydrALAZINE HCL 20 MG/ML VL IV PRN (17:53)
--- NOTE | 2024-08-13 18:49 | ECG ---
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
[2024-08-13 19:30] VITALS: PULSE 100; RESP 16; O2SAT 96
[2024-08-13] MEDS: HYDROcodone-ACET 5/325MG TAB PO PRN (19:49)
[2024-08-13 20:53] VITALS: BP 131/73; PULSE 94; RESP 20; TEMP 97.5; O2SAT 96
[2024-08-13 20:55] VITALS: BP 131/73; PULSE 94; RESP 20; TEMP 97.5; O2SAT 96
[2024-08-13] MEDS: ACCU-CHEK COMFORT CURVE STRIP VI SCH (22:28)
[2024-08-13] MEDS: CARVEDILOL 3.125 MG TAB PO SCH (22:28)
[2024-08-13] MEDS: InsuLIN REG 1unit/0.01ml Soln (100units/ml) SC SCH (22:32)
[2024-08-13] MEDS: INSULIN LANTUS (GLARGINE) 1 /0.01ml (100units/ml) SC SCH (22:33)
[2024-08-13] MEDS: MORPHINE SULFATE INJ 2 MG/ml SYRG IV ONE (23:11)
[2024-08-14] VITALS (8 sets, daily range): BP systolic 107–139; BP diastolic 60–89; PULSE 84–95; RESP 16–20; TEMP 97.5–98.6; O2SAT 94–98
[2024-08-14] MEDS: MORPHINE SULFATE INJ 2 MG/ml SYRG IV ONE ×2 (02:02→16:34)
[2024-08-14 06:07] LABS: Basophils # (auto) 0 10 ^3/uL (0-0.2); Basophils % (auto) 0.5 % (0.0-2.0); Eosinophils # (auto) 0.3 10 ^3/uL (0-0.8); Eosinophils % (auto) 3.3 % (0.0-7.0); Hematocrit 41.5 % (41.0-53.0); Hemoglobin 14.4 g/dL (13.5-17.5); Lymphocytes # (auto) 1.9 10 ^3/uL (0.4-5.4); Lymphocytes % (auto) 22.4 % (10.0-50.0); Mean Corpuscular Hemoglobin 29.6 pg (28.0-32.0); Mean Corpuscular Hgb Conc. 34.8 g/dL (32.0-36.0); Mean Corpuscular Volume 85.2 fL (80.0-100.0); Monocytes # (auto) 0.9 10 ^3/uL (0-1.3); Monocytes % (auto) 11.2 % (0.0-12.0); Neutrophils # (auto) 5.2 10 ^3/uL (1.6-8.6); Neutrophils % (auto) 62.6 % (37.0-80.0); Nucleated Red Blood Cells % 0.1 %; Platelet Count (auto) 252 10^3/uL (140-450); Red Blood Cells 4.88 10^6/uL (4.5-5.90); Red Cell Distribution Width 14.1 % (11.8-14.3); White Blood Cell 8.3 10^3/uL (4.4-10.8)
[2024-08-14 06:22] LABS: Alanine Aminotransferase 33 U/L (7-40); Albumin 4.1 g/dL (3.2-4.8); Alkaline Phosphatase 65 U/L (46-116); Anion Gap 8 (5-15); Aspartate Aminotransferase 24 U/L (<34); BUN/Creatinine Ratio 14.3 (10.0-20.0); Blood Urea Nitrogen 15 mg/dL (9-23); Calcium 9.5 mg/dL (8.7-10.4); Carbon Dioxide 29 mmol/L (20-31); Sodium 145 mmol/L (136-145); Total Protein 6.6 g/dL (5.7-8.2)
[2024-08-14 06:23] LABS: Bilirubin, Total 0.7 mg/dL (0.2-1.0)
[2024-08-14] MEDS: InsuLIN REG 1unit/0.01ml Soln (100units/ml) SC SCH (06:26)
[2024-08-14 06:28] LABS: Chloride 108 mmol/L (98-107); Glucose 162 mg/dL (74-106)
[2024-08-14] MEDS: NIFEdipine ER 30 MG TAB PO SCH (09:08)
[2024-08-14] MEDS: LISINOPRIL 20 MG TAB PO SCH (09:08)
[2024-08-14] MEDS: DULoxetine HCL 30 MG CAP PO SCH (12:00)
--- NOTE | 2024-08-14 13:40 | ECG ---
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
--- NOTE | 2024-08-14 13:41 | DVH ---
MRI lumbar spine HISTORY: radiculopathy TECHNIQUE: MR was performed with a surface coil at 1.5 T magnet. Sagittal, axial and coronal T1 and T 2-weighted images were obtained. FINDINGS: Lumbar vertebrae normal in height signal intensity and alignment. L1-2, L2-3, and L3-4 all normal in appearance At L4-5 there is loss of disc height and signal intensity. There is a broad-based 6-7 mm disc protru vinay effacing the thecal sac causing slight narrowing of the central canal. There is probable centra l effacement of the exiting L5 nerve roots At L5-S1 there is loss of disc height and signal intensity. Slight to moderate narrowing of the neura l foramina by bulging disc and osteophytes with possible effacement of the exiting right L5 nerve anayeli t peripherally Cord ends at T12-L1 is normal in appearance IMPRESSION: 1. L4-5 there is a broad-based 6-7 mm disc protrusion effacing the thecal sac and probably effacing t he L5 nerve root centrally near the exit point. 2. At L5-S1 there is degenerative disc disease with foraminal narrowing by bulging disc and osteophyt es. There may be peripheral effacement of the right L5 nerve root
[2024-08-14] MEDS: clonazePAM 0.5 MG TAB PO PRN (14:21)
[2024-08-14] MEDS: GABAPENTIN 300 MG CAP PO SCH (14:40)
--- NOTE | 2024-08-14 15:42 | DVHPNRES ---
Progress Note Date Seen: Aug 14, 2024 Resident Creating Document: ALE HARRIS RESIDENT Has the PT tested + for MRSA If YES, has PT been informed?: No Medical Necessity Reason Pt with a Central, PICC or Fol: No Subjective Review of Systems Otis Krishna is a 49-year-old male with past medical history of hypertension, diabetes, and CHF, who comes to the hospital frequently with complaints of abdominal pain. Patient has been seen frequently for similar complaints. Last admission an EGD and colonoscopy was completed. Both test did not show any abnormalities. 08/15/2024: normal abdominal CT scan, on examination patient had lasegue sign is positive, lumbar MRI ordered, showing: L4-5 there is a broad-based 6-7 mm disc protrusion effacing the thecal sac and probably effacing the L5 nerve root centrally near the exit point and At L5-S1 there is degenerative disc disease with foraminal narrowing by bulging disc and osteophytes. There may be peripheral effacement of the right L5 nerve root, duloxetine, gabapentin and clonazepam given. During the afternoon, patient had an episode of chest pain, ekg didnt show any significant changes with the one at admission, troponins are negative Objective vital signs Vital Sign Date Time Temp Pulse Resp B/P (MAP) Pulse Ox O2 Delivery O2 Flow Rate FiO2 08/14/24 12:00 84 139/88 08/14/24 09:30 98.2 18 94 98.2 08/14/24 08:00 Room Air* 0 21 Total Intake and Output 08/13/24 08/13/24 08/14/24 15:00 23:00 07:00 Intake Total 1000 ml 240 ml Balance 1000 ml 240 ml medications Current Medications Medications Dose Ordered Sig/Jorge Route Start Time Stop Time Status Last Admin Dose Admin Sodium Chloride 10 ml Q8HR IV 08/13/24 14:00 08/14/24 14:22 10 ML Acetaminophen/ Hydrocodone Bitart 1 tab Q4HP PRN PO 08/13/24 11:15 08/14/24 14:26 1 TAB Ondansetron HCl 4 mg Q4HP PRN IV 08/13/24 11:15 08/13/24 15:29 4 MG Docusate Sodium 100 mg BIDPRN PRN PO 08/13/24 11:15 Acetaminophen 650 mg Q6HP PRN PO 08/13/24 11:15 Insulin Glargine 35 units BID@1000,2200 SC 08/13/24 22:00 08/14/24 09:18 35 UNITS Lisinopril 20 mg DAILY PO 08/14/24 10:00 08/14/24 09:08 20 MG Carvedilol 6.25 mg BID PO 08/13/24 22:00 08/14/24 09:07 6.25 MG Nifedipine 60 mg DAILY PO 08/14/24 10:00 08/14/24 09:08 60 MG Diagnostic Test (Pha) 1 strip ACHS 08/13/24 22:00 08/14/24 11:49 1 STRIP Insulin Human Regular HS SC 08/13/24 22:00 08/13/24 22:32 3 UNITS Insulin Human Regular AC SC 08/14/24 07:00 08/14/24 12:02 3 UNITS Dextrose 50 ml UD PRN IV 08/13/24 17:15 Clonazepam 0.5 mg Q12HP PRN PO 08/14/24 11:45 08/14/24 23:59 08/14/24 14:21 0.5 MG Duloxetine HCl 30 mg DAILY PO 08/15/24 10:00 Gabapentin 300 mg DAILY PO 08/14/24 14:30 08/14/24 14:40 300 MG Examination Cranial nerves IIXII intact Motor: 5/5 strength in all extremities Sensory: decreased pinprick sensation in bilateral L5-S1 dermatomes Reflexes: 2+ throughout, except 1+ at bilateral Achilles Gait: antalgic Special tests: straight leg raise (Lasgue) positive bilaterally with radicular pain reproduction Pain at palpation in the right flank laboratory and microbiology Laboratory Tests 08/14/24 05:23 Test 08/14/24 05:23 Range/Units Serum Glucose 162 H 74-106 mg/dL Microbiology Date/Time Source Procedure Growth Status 08/13/24 21:30 Nose MRSA Screen - Final Complete Problem List/Assessment/Plan Problem List/Assessment/Plan Hypertensive emergency resolved Intractable abdominal pain? Chest pain? Diabetes Hypertensive heart disease with systolic dysfunction Mild CAD Polysubstance abuse Plan: Cardiac diet Carvedilol 6.25 mg Duloxetine 30 mg PO Gabapentin 300 mg PO Lantus 35 UI Lisinopril 20 mg PO Nifedipine 60 mg PO [place] PRN Case discussed with Dr Bosch Full code Plan discussed with: Patient, Other (rn) My Orders My Orders Orders - ALE HARRIS Procedure Category Date Status Time Lumbar Spine Wo MRI 08/14/24 Resulted Contrast 11:44 Clonazepam Tablet PHA 08/14/24 In Process (Klonopin Tablet) 11:45 Transfer Orders XFER 08/14/24 Transmitted 11:55 Discontinue Tele JASWANT 08/14/24 In Process 11:55 Gabapentin Capsule PHA 08/14/24 In Process (Neurontin Capsule) 14:30 Duloxetine Hcl PHA 08/15/24 In Process Capsule (Cymbalta 10:00 Morphine Sulfate PHA 08/14/24 Logged Injection 15:30 Date of Service: Aug 14, 2024 Billing Provider: MARY BOSCH MD Common Visit Codes: [id number] INP/OBS CARE(HIGH) ALE HARRIS RESIDENT Aug 14, 2024 15:42 MARY BOSCH MD Aug 16, 2024 15:23
[2024-08-14] MEDS: ACETAMINOPHEN 325 MG TAB PO PRN (18:15)
[2024-08-14] MEDS: KETOROLAC TROMETH 30 MG/ML 1ML VIAL IV ONE (20:03)
[2024-08-15 00:52] VITALS: BP 122/75; PULSE 83; RESP 17; TEMP 98.1; O2SAT 95
[2024-08-15 05:00] VITALS: BP_SYST 138; BP_DIAS 89; BP_DIAS 92; PULSE 90; RESP 17; TEMP 97.7; O2SAT 98
[2024-08-15 08:00] VITALS: PULSE 99; RESP 18; O2SAT 97
[2024-08-15] MEDS: DULoxetine HCL 30 MG CAP PO SCH (09:20)
[2024-08-15 09:30] VITALS: BP 121/79; PULSE 85; RESP 18; TEMP 98.7; O2SAT 94
--- NOTE | 2024-08-15 10:51 | ECG ---
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
[2024-08-15] MEDS ORDERED: PREG50CA PO ×3 (11:09→11:13)
[2024-08-15] MEDS ORDERED: HYDR-4902 PO (11:14)
[2024-08-15] MEDS ORDERED: DULO20CA PO (11:42)
[2024-08-15 12:30] VITALS: BP 167/114; PULSE 93; RESP 18; TEMP 97.7; O2SAT 97
[2024-08-15] MEDS ORDERED: GABA-1250 PO (12:40)
[2024-08-15 16:30] VITALS: BP 142/92; PULSE 89; RESP 16; TEMP 98.5; O2SAT 96
--- NOTE | 2024-08-15 17:13 | DVHDSRES ---
Discharge Summary Date of Admission Resident Creating Document: ALE HARRIS RESIDENT Aug 13, 2024 at 11:08 Date of Discharge: Aug 15, 2024 Admitting Diagnosis Intractable abdominal pain likely musculoskeletal Labs/Diagnostic Data: Laboratory Results Test 08/15/24 06:27 08/14/24 18:45 08/14/24 05:23 08/13/24 08:22 POC Glucose 129 mg/dl (70-106) Troponin I High Sensitivity 8 ng/L (</=54) White Blood Count 8.3 10^3/uL (4.4-10.8) Red Blood Count 4.88 10^6/uL (4.5-5.90) Hemoglobin 14.4 g/dL (13.5-17.5) Hematocrit 41.5 % (41.0-53.0) Mean Corpuscular Volume 85.2 fL (80.0-100.0) Mean Corpuscular Hemoglobin 29.6 pg (28.0-32.0) Mean Corpuscular Hemoglobin Concent 34.8 g/dL (32.0-36.0) Red Cell Distribution Width 14.1 % (11.8-14.3) Platelet Count 252 10^3/uL (140-450) Mean Platelet Volume 8.4 fL (6.9-10.8) Neutrophils (%) (Auto) 62.6 % (37.0-80.0) Lymphocytes (%) (Auto) 22.4 % (10.0-50.0) Monocytes (%) (Auto) 11.2 % (0.0-12.0) Eosinophils (%) (Auto) 3.3 % (0.0-7.0) Basophils (%) (Auto) 0.5 % (0.0-2.0) Neutrophils # (Auto) 5.2 10 ^3/uL (1.6-8.6) Lymphocytes # (Auto) 1.9 10 ^3/uL (0.4-5.4) Monocytes # (Auto) 0.9 10 ^3/uL (0-1.3) Eosinophils # (Auto) 0.3 10 ^3/uL (0-0.8) Basophils # (Auto) 0 10 ^3/uL (0-0.2) Nucleated Red Blood Cells 0.1 % Sodium Level 145 mmol/L (136-145) Potassium Level 4.0 mmol/L (3.5-5.1) Chloride Level 108 mmol/L (98-107) Carbon Dioxide Level 29 mmol/L (20-31) Anion Gap 8 (5-15) Blood Urea Nitrogen 15 mg/dL (9-23) Creatinine 1.05 mg/dL (0.700-1.30) Glomerular Filtration Rate Calc 87 mL/min (>90) BUN/Creatinine Ratio 14.3 (10.0-20.0) Serum Glucose 162 mg/dL (74-106) Hemoglobin A1c 7.9 % A1C (<5.7) Calcium Level 9.5 mg/dL (8.7-10.4) Total Bilirubin 0.7 mg/dL (0.2-1.0) Aspartate Amino Transferase (AST) 24 U/L (<34) Alanine Aminotransferase (ALT) 33 U/L (7-40) Alkaline Phosphatase 65 U/L (46-116) Total Protein 6.6 g/dL (5.7-8.2) Albumin 4.1 g/dL (3.2-4.8) Urine Color Yellow (Yellow) Urine Clarity Turbid (Clear) Urine pH 6.0 (5.0-9.0) Urine Specific [place] 1.024 (1.001-1.035) Urine Protein Trace (Negative) Urine Ketones Negative (Negative) Urine Blood Trace /uL (Negative) Urine Nitrite Negative (Negative) Urine Bilirubin Negative (Negative) Urine Urobilinogen Normal mg/dL (Negative) Urine Leukocyte Esterase Negative /uL (Negative) Urine RBC 1 /hpf (0 - 3) Urine Microscopic WBC 11 /HPF (0-3) Urine Squamous Epithelial Cells Few /hpf (<5) Urine Bacteria /hpf (None Seen) Urine Hyaline Casts Mod /lpf (0 - 2) Urine Mucus Few (None Seen) Urine Glucose Trace mg/dL (Normal) Other Laboratory Tests 08/14/24 05:23 Brief Hx & Hospital Course: The patient is a 49-year-old male with PMHx of hypertension, diabetes, CHF, mild CAD, and polysubstance abuse who presented with complaints of abdominal and chest pain. CT abdomen was unremarkable. Lumbar MRI showed broad-based disc protrusion at L4-5 with foraminal narrowing and L5 nerve root impingement, consistent with degenerative disc disease. Musculoskeletal etiology was considered most likely. Chest pain was non-cardiac; EKG and troponins were negative. Patient was managed with antihypertensives, analgesics, and neuropathic pain medications. His hypertensive emergency resolved with medical therapy.Patient has been seen frequently for similar complaints. Last admission an EGD and colonoscopy was completed. Both test did not show any abnormalities. Arteriography done in June 2024: showed mild CAD on the RCA Cranial nerves IIXII intact Motor: 5/5 strength in all extremities Sensory: decreased pinprick sensation in bilateral L5-S1 dermatomes Reflexes: 2+ throughout, except 1+ at bilateral Achilles Gait: antalgic Special tests: straight leg raise ([place]) positive bilaterally with radicular pain reproduction Pain at palpation in the right flank Disposition: Discharged home in stable condition. Follow up with primary care and pain management. Continue home medications. No further inpatient needs at this time. Discharge Medications: Duloxetine 30 mg PO Gabapentin 300 mg PO Thayer PRN Operations or Procedures Exam: CT CT AB PEL WITH IV CON ONLY History: abdominal pain, left Comparison Study: CT CT AB PEL WITH IV CON ONLY on DOS: 07/21/24 TECHNIQUE: Multidetector CT of the abdomen was performed from lung bases to pubic symphysis. Imaging was performed without IV contrast. Axial, coronal and sagittal multiplanar reformats were obtained from the axial data set by the technologist. Radiation dose : 1. Abdomen/Pelvis: CTDIvol 22.32 mGy, DLP 1176.48 mGy*cm. FINDINGS: Evaluation of solid organs is limited due to lack of intravenous contrast use. Findings: Lung Bases: No acute or significant lung base finding. Normal heart size. No pleural or pericardial effusion. Liver: The liver is normal in size. No focal lesions. Gallbladder and biliary Tree: Unremarkable Spleen: Unremarkable Pancreas: The pancreas is grossly normal in appearance. Adrenal Glands: Unremarkable Kidneys: Kidneys are grossly normal without calculi or hydronephrosis. Bladder: Grossly unremarkable for degree of distention. Bowel: The stomach is grossly normal in appearance. Small bowel and colon are normal in caliber and distribution. The appendix is filled with multiple appendicoliths, but there is no appendiceal wall thickening, dilation, or surrounding inflammatory changes. Ascites: Absent Lymphadenopathy: No mesenteric, retroperitoneal or periportal lymphadenopathy. Abdominal wall and Mesentery: Unremarkable. Vasculature: The visualized abdominal aorta is normal in size and caliber. Evaluation of abdominal and pelvic vessels is limited due to lack of intravenous contrast. Pelvic Organs: Unremarkable Musculoskeletal: No aggressive focal bony lesions, acute fractures or dislocation. Soft tissues: Unremarkable IMPRESSION: 1. No acute abdominal or pelvic finding. 2. Radiation optimization: All CT scans at this facility use at least one of these dose optimization techniques: automated exposure control mA and/or kV adjustment per patient size (includes targeted exams where dose is matched to clinical indication) or iterative reconstruction. MRI lumbar spine HISTORY: radiculopathy TECHNIQUE: MR was performed with a surface coil at 1.5 T magnet. Sagittal, axial and coronal T1 and T2-weighted images were obtained. FINDINGS: Lumbar vertebrae normal in height signal intensity and alignment. L1-2, L2-3, and L3-4 all normal in appearance At L4-5 there is loss of disc height and signal intensity. There is a broad- based 6-7 mm disc protrusion effacing the thecal sac causing slight narrowing of the central canal. There is probable central effacement of the exiting L5 nerve roots At L5-S1 there is loss of disc height and signal intensity. Slight to moderate narrowing of the neural foramina by bulging disc and osteophytes with possible effacement of the exiting right L5 nerve root peripherally Cord ends at T12-L1 is normal in appearance IMPRESSION: 1. L4-5 there is a broad-based 6-7 mm disc protrusion effacing the thecal sac and probably effacing the L5 nerve root centrally near the exit point. 2. At L5-S1 there is degenerative disc disease with foraminal narrowing by bulging disc and osteophytes. There may be peripheral effacement of the right L5 nerve root Condition at Discharge: Stable Final Diagnosis/Problems List Hypertensive emergency resolved Intractable abdominal pain likely musculoskeletal Chest pain likely musculoskeletal Diabetes Hypertensive heart disease with systolic dysfunction Mild CAD Polysubstance abuse Discharge Disposition: Home Discharge Instruct/Medications Diet: Cardiac 2g Na,low cholest Activity: Light activity Follow Up/Referral: fu with pcp and pain managment Medications: see prescirpiton Discharge Statement: "Patient was advised to return to the ER or call 911 if any headaches, dizziness, shortness of breath, chest pain, abdominal pain, bleeding, fevers, or worsening of medical condition. Patient was counseled about treatment plan, medications, possible side effects, patientverbalized understanding. All questions were answered to the best of my ability. This discharge took greater then 30 minutes in planning, reviewing documentation, counseling the patient, and discussing with other team members." ASSESSMENT ASSESSMENT Assessment acute intractable pain ALE HARRIS RESIDENT Aug 15, 2024 17:13
[2024-08-15] MEDS ORDERED: GABAPENTIN 300 MG CAP PO SCH (20:00)
[2024-08-15] MEDS: KETOROLAC TROMETH 30 MG/ML 1ML VIAL IV ONE (20:09)
--- NOTE | 2024-08-16 07:45 | ECG ---
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
--- NOTE | 2024-08-16 15:40 | ECG ---
[facility] Test Date: 2024-08-15 Test Time: 19:34:29 Pat Name: EULOGIO LAUGHLIN Department: Respiratoy Room: 0246 A Gender: M Associate Software Engineer: YASMEEN Cm : 1975 Requested By: ALE CR Order Number: [id number] Reading MD: Edouard Cifuentes Measurements Intervals [place] Rate: 99 P: 24 NE: 186 QRS: -8 QRSD: 119 T: 117 QT: 395 QTc: 507 Interpretive Statements Sinus rhythm Nonspecific intraventricular conduction delay Abnormal T, consider ischemia, lateral leads Electronically Signed On 08-16-2024 21:12:31 PDT by Edouard Cifuentes Please click the below link to view image of tracing.
--- NOTE | 2024-08-16 15:41 | ECG ---
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
== END 2024-08-15 20:30 | disposition home or self-care (01) | DRG 199 ==
LOC: ER 07:35 → OVERFLOW 11:08 → TELE-EAST 20:53 → EAST 08-15 01:34
PROVIDERS: ADMIT Student in an Organized Health Care Education/Training Program; ATTEND Emergency Medicine
DX: I16.1 Hypertensive emergency (principal); I50.22 Chronic systolic (congestive) heart failure; E11.9 Type 2 diabetes mellitus without complications; I11.0 Hypertensive heart disease with heart failure; F19.10 Other psychoactive substance abuse, uncomplicated; I25.10 Atherosclerotic heart disease of native coronary artery without angina pectoris; M51.26 Other intervertebral disc displacement, lumbar region; M51.369 Other intervertebral disc degeneration, lumbar region without mention of lumbar back pain or lower extremity pain
CPT/HCPCS: 36415; 71045; 72148; 74177; 80048; 80053; 81001; 82962; 83036; 84484; 85025; 87081; 93005; 96374; 96375; 99291; G0378; J1815; J1885; J2405

== ENCOUNTER 2024-08-21 13:12 | Inpatient (IN) | payer MEDICAID ==
[~2024-08-21] VITALS: Ht 170.2 cm; Wt 99.2 kg
[~2024-08-21 13:12] MED LIST changes: -ASPI81CH59 PO; -CARV-214 PO; +CARV3.1240 PO; -DOX100T PO; +DULO20CA PO; +GABA-1250 PO; -INSU1INJ19 SC; -METO10TA3 PO; +PREG50CA PO; -ZOFR4T PO
--- NOTE | 2024-08-21 13:26 | ED.PDOC ---
HPI Comments This is a 49 year old male presenting to the ED with chief complaint of chest pain. Patient reports that he has been experiencing 10/10 squeezing chest pain with associated SOB and abdominal pain since this morning. Patient relays that after symptom onset, he also had a syncopal episode while at home. Patient states he has had similar pain in the past. patient notes his blood pressure has been out of control due to his abdominal pain not improving since last visit. Patient denies any dizziness, headache, blurred vision, N/V/D, or fever. Time Seen by MD: 13:24 Primary Care Provider: ROXANA Reviewed Notes: Nurses Notes, Medications, Allergies Allergies: Coded Allergies: No Known Drug Allergy (Verified Allergy, Unknown, 12/24/23) Home Meds Active Scripts Gabapentin (Gabapentin) 300 Mg Cap, 1 CAP PO TID for 10 Days, #90 CAP 5 Refills Prov:ALE HARRIS RESIDENT 08/15/24 Duloxetine Hcl (Cymbalta) 20 Mg Cap, 1 CAP PO DAILY for 30 Days, #30 CAP Prov:ALE HARRIS RESIDENT 08/15/24 Hydrocodone-Acetaminophen (Hydrocodone Bitartrate/AC 5-325 mg) 1 Tab Tab, 1 TAB PO Q8HPRN PRN for 7 Days, #21 TAB Prov:MARY BOSCH MD 08/15/24 Sennosides-Docusate Sodium (Senokot S) 1 Tab Tab, 1 TAB PO BID for 14 Days, #30 TAB 0 Refills Prov:CAROLINA OVALLE MD 08/02/24 Polyethylene Glycol 3350 (Goodsense Clearlax) 17 Gm/Scoop Pow, 17 GM PO DAILY for 10 Days, #17.9 POW 0 Refills Prov:CAROLINA OVALLE MD 08/02/24 Sucralfate (CARAFATE SUSP) 1 Gm/10 Ml Ss, 10 ML PO BID for 30 Days, #600 ML 0 Refills Prov:CAROLINA OVALLE MD 08/02/24 Pantoprazole Sodium Sesquihydr (Protonix) 40 Mg Tab, 40 MG PO DAILY for 30 Days, #30 TAB 1 Refill Prov:CAROLINA OVALLE MD 08/02/24 Dicyclomine Hcl (BENTYL CAPSULE) 10 Mg Cp, 1 CAP PO Q6HPRN PRN, #30 CAP 0 Refills Prov:CAROLINA OVALLE MD 08/02/24 Insulin Glargine (Lantus) 100 Unit/Ml Inj, 35 UNITS SC BID@1000,2200 for 30 Days, #1 INJ Prov:[facility] 12/28/23 Acetaminophen (Acetaminophen) 325 Mg Tab, 325 MG PO Q4HP PRN for 7 Days, #35 TAB Prov:[facility] 12/28/23 Glipizide (Glipizide) 10 Mg Tab, 1 TAB PO BID for 30 Days, #60 TAB 5 Refills Prov:[facility] 12/28/23 Lisinopril (Lisinopril) 20 Mg Tab, 20 MG PO DAILY for 30 Days, #30 TAB Prov:[facility] 12/28/23 Ergocalciferol (VITAMIN D 64479 UNIT) 50,000 [place], [address] UNIT PO Q7D for 30 Days, #30 CAP Prov:[facility] 12/28/23 Empagliflozin (Jardiance) 10 Mg Tab, 10 MG PO DAILY for 30 Days, #30 TAB Prov:[facility] 12/28/23 Atorvastatin Calcium (ATORVASTATIN CALCIUM) 20 Mg Tab, 40 MG PO HS for 30 Days, #60 TAB Prov:[facility] 12/28/23 Reported Medications Pregabalin (Lyrica) 50 Mg Cap, 1 CAP PO BID, #60 CAP 08/15/24 Insulin Lispro (Humalog Kwikpen) 100 Unit/Ml Inj, 25 UNITS SC AC for 40 Days, #30 08/14/24 Cholecalciferol (D2000 Ultra Strength) 2,000 Unit Cap, 1 CAP PO DAILY for 90 Days, #90 08/14/24 Aspirin (Aspirin Low Dose) 81 Mg Tab, 1 TAB PO DAILY for 90 Days, #90 08/14/24 Trazodone Hcl (Trazodone Hcl) 50 Mg Tab, 1 TAB PO QHSP PRN for PSYCHOPHYSIOLOGIC INSOMNIA for 30 Days, #30 08/14/24 Furosemide (Furosemide) 20 Mg Tab, 1 TAB PO BID for 90 Days, #180 08/14/24 Hydroxyzine Hcl (Hydroxyzine Hcl) 25 Mg Tab, 1 TAB PO DAILY for 30 Days, #30 08/14/24 Linaclotide Base (LINZESS) 145 Mcg Cap, 1 CAP PO DAILY for 30 Days, #30 08/14/24 Tirzepatide (Mounjaro) 5 Mg/0.5 Ml Inj, 5 MG SC QWEEKLY for 28 Days, #2 08/14/24 Carvedilol (Carvedilol) 3.125 Mg Tab, 2 TAB PO BID 08/13/24 Nitroglycerin (NTROSTAT SUBLINGUAL) 0.4 Mg Sl, 0.4 MG SL PRN, TAB *MAY REPEAT EVERY 5 MINUTES X 3 TOTAL IF NO RELIEF, INITIATE ANALGESIC THERAPY. NOTIFY PHYSICIAN *Do not crush. 12/25/23 Tramadol Hcl (Tramadol Hcl) 50 Mg Tab, 50 MG PO, TAB 12/25/23 Discontinued Reported Medications Pregabalin (Lyrica) 50 Mg Cap, 1 CAP PO TID for 30 Days, #90 CAP 08/15/24 Pregabalin (Lyrica) 50 Mg Cap, 1 CAP PO BID for 30 Days, #60 CAP 08/15/24 Pregabalin (Lyrica) 50 Mg Cap, 1 CAP PO BID for 30 Days, #60 CAP 08/15/24 Information Source: Patient Mode of Arrival: Ambulatory Severity: Moderate Timing: Hours Duration: Since onset Prehospital treatment: None Location: Chest (L) Radiation: No Radiation Quality: Squeezing Onset: At Rest Cardiac Risk Factors: Hyperlipidemia, HTN, Diabetes PE Risk Factors: None History of: Similar pain in past Associated Signs and Symptoms: SOB, Abdominal Pain Past Medical History PAST MEDICAL HISTORY: CHF, DM, High Lipids, HTN Surgical History (Other): Cyst removal Family History Family History: Reviewed,noncontributory to illness Social History Smoker: Non-Smoker Alcohol: Denies ETOH Use Drugs: Denies Drug Use Lives In: Home Constitutional: denies: chills, diaphoresis, fatigue, fever, malaise, sweats, weakness, others EENTM: denies: blurred vision, double vision, ear bleeding, ear discharge, ear drainage, ear pain, ear ringing, eye pain, eye redness, hearing loss, mouth pain, mouth swelling, nasal discharge, nose bleeding, nose congestion, nose pain, photophobia, tearing, throat pain, throat swelling, voice changes, others Respiratory: reports: shortness of breath; denies: cough, hemoptysis, orthopnea, SOB at rest, SOB with excertion, stridor, wheezing, others Cardiovascular: reports: chest pain, syncope; denies: dizzy spells, diaphoresis, Dyspnea on exertion, edema, irregular heart beat, left arm pain, lightheadedness, palpitations, PND, others Gastrointestinal: reports: abdominal pain; denies: abdomen distended, blood streaked bowels, constipated, diarrhea, dysphagia, difficulty swallowing, hematemesis, melena, nausea, poor appetite, poor fluid intake, rectal bleeding, rectal pain, vomiting, others Genitourinary: denies: burning, dysuria, flank pain, frequency, hematuria, incontinence, penile discharge, penile sore, pain, testicle pain, testicle swelling, urgency, others Neurological: denies: dizziness, fainting, headache, left sided numbness, left sided weakness, numbness, paresthesia, pre-existing deficit, right sided numbness, right sided weakness, seizure, speech problems, tingling, tremors, weakness, others Musculoskeletal: denies: back pain, gout, joint pain, joint swelling, muscle pain, muscle stiffness, neck pain, others Integumetry: denies: bruises, change in color, change in hair/nails, dryness, laceration, lesions, lumps, rash, wounds, others Allergic/Immunocompromised: denies: Difficulty Healing, Frequent Infections, Hives, Itching, others Hematologic/Lymphatic: denies: anemia, blood clots, easy bleeding, easy bruising, swollen glands, others Endocrine: denies: excessive hunger, excessive sweating, excessive thirst, excessive urination, flushing, intolerance to cold, intolerance to heat, unexplained weight gain, unexplained weight loss, others Psychiatric: denies: anxiety, bipolar disorder, depression, hopeless, panic disorder, schizophrenia, sleepless, suicidal, others All Other Systems: Reviewed and Negative Physical Exam General Appearance: Moderate Distress HEENT: Normal ENT Inspection, Pharynx Normal, TMs Normal Neck: Full Range of Motion, Non-Tender, Normal, Normal Inspection Respiratory: Chest Non-Tender, Lungs Clear, No Accessory Muscle Use, No Respiratory Distress, Normal Breath Sounds Cardiovascular: No Edema, No JVD, No Murmur, No Gallop, Normal Peripheral Pulses, Regular Rate/Rhythm Breast Exam: Deferred Gastrointestinal: Diffuse, No Organomegaly, No Pulsatile Mass, Normal Bowel Sounds, Soft, Tenderness Genitalia: Deferred Pelvic: Deferred Rectal: Deferred Extremities: No calf tenderness, Normal capillary refill, Normal inspection, Normal range of motion, Non-tender, No pedal edema Musculoskeletal : Apperance: Normal Neurologic: Alert, ems driver II-XII nml as Tested, No Motor Deficits, Normal Affect, Normal Mood, No Sensory Deficits Cerebellar Function: Normal Reflexes: Normal Skin: Dry, Normal Color, Warm Lymphatic: No Adenopathy EKG EKG : Pulse Rate (adult): 112 Sharon: Normal Cardiac Rhythm: ST Block: None Hypertrophy: None ST: Normal Was a procedure done? Was a procedure done?: No CP Differential Dx Differential Diagnosis: Angina, [place], Pulmonary Embolus Differential Diagnosis: CHF Differential Diagnosis: Pericarditis X-Ray, Labs, Meds, VS Vital Signs Date Time Temp Pulse Resp B/P (MAP) Pulse Ox O2 Delivery O2 Flow Rate FiO2 08/21/24 13:47 99.3 113 20 179/113 (135) 94 99.3 08/21/24 13:33 112 08/21/24 13:30 98.0 111 18 179/124 (142) 96 98.0 179/125 (143) Lab Test 08/21/24 13:37 08/21/24 13:26 Range/Units White Blood Count 8.5 4.4-10.8 10^3/uL Red Blood Count 5.24 4.5-5.90 10^6/uL Hemoglobin 15.8 13.5-17.5 g/dL Hematocrit 44.6 41.0-53.0 % Mean Corpuscular Volume 85.1 80.0-100.0 fL Mean Corpuscular Hemoglobin 30.1 28.0-32.0 pg Mean Corpuscular Hemoglobin Concent 35.4 32.0-36.0 g/dL Red Cell Distribution Width 14.6 H 11.8-14.3 % Platelet Count 265 140-450 10^3/uL Mean Platelet Volume 8.4 6.9-10.8 fL Neutrophils (%) (Auto) 70.9 37.0-80.0 % Lymphocytes (%) (Auto) 20.6 10.0-50.0 % Monocytes (%) (Auto) 6.6 0.0-12.0 % Eosinophils (%) (Auto) 1.1 0.0-7.0 % Basophils (%) (Auto) 0.8 0.0-2.0 % Neutrophils # (Auto) 6.0 1.6-8.6 10 ^3/uL Lymphocytes # (Auto) 1.7 0.4-5.4 10 ^3/uL Monocytes # (Auto) 0.6 0-1.3 10 ^3/uL Eosinophils # (Auto) 0.1 0-0.8 10 ^3/uL Basophils # (Auto) 0.1 0-0.2 10 ^3/uL Nucleated Red Blood Cells 0.1 % Sodium Level 139 136-145 mmol/L Potassium Level 4.1 3.5-5.1 mmol/L Chloride Level 105 98-107 mmol/L Carbon Dioxide Level 22 20-31 mmol/L Anion Gap 12 5-15 Blood Urea Nitrogen 12 9-23 mg/dL Creatinine 1.08 0.700-1.30 mg/dL Glomerular Filtration Rate Calc 84 >90 mL/min BUN/Creatinine Ratio 11.1 10.0-20.0 Serum Glucose 270 H 74-106 mg/dL Calcium Level 10.2 8.7-10.4 mg/dL Troponin I High Sensitivity 6 </=54 ng/L POC Glucose 262 H 70-106 mg/dl Current Medications Medications (Trade) Dose Ordered Sig/Jorge Route Start Time Stop Time Status Last Admin Aspirin 162 mg ONCE ONCE PO 08/21/24 13:30 08/21/24 13:31 DC 08/21/24 13:48 Lorazepam (Ativan Inj) 1 mg ONCE ONCE IV 08/21/24 13:30 08/21/24 13:31 DC 08/21/24 13:50 IV Hep-Lock was established The patient was given aspirin 162 mg by mouth The patient was given Ativan 1 mg IV push The CBC and chemistry panel is within normal limits except for hyperglycemia at 270 The chest x-ray shows: No sign of any abnormalities The patient is being admitted to the hospitalist The patient was extremely hypertensive so was started on a nicardipine drip Images Reviewed?: Images reviewed and evaluated by me Time of 1ST Reevaluation: 14:10 Reevaluation 1ST: Unchanged Patient Education/Counseling: Diagnosis, Treatment, Prognosis Family Education/Counseling: No Family Present Additional Information Reviewed patient's previous visit(s): 08/13/24 for hypertensive emergency The following tests were ordered, and results were reviewed by me: Chest XR, CBC, BMP, UA, Troponin Additional information was gathered from interviewing the following independent historian: None I reviewed and agreed with the following test results read by other provider: Chest XR I discussed treatments and results with medical personnel and: PATIENT Comprehensive systems review obtained and negative except for what is stated in the HPI. SEPSIS Sepsis Screen Physician Orders Heplock Iv (08/21/24 13:24) Commercial Plumber (08/21/24 13:24) Blood Pressure (08/21/24 13:24) Pulse Oximetry (08/21/24 13:24) Chest Two Views Routine (08/21/24 13:24) Urinalysis (08/21/24 13:24) Troponin-I Hs (08/21/24 14:24) Troponin-I Hs (08/21/24 16:24) Nicardipine Hcl In Sodium Chlo (Cardene (08/21/24 14:15) Vital Signs Date Time Temp Pulse Resp B/P (MAP) Pulse Ox O2 Delivery O2 Flow Rate FiO2 08/21/24 13:47 99.3 113 20 179/113 (135) 94 99.3 08/21/24 13:33 112 08/21/24 13:30 98.0 111 18 179/124 (142) 96 98.0 179/125 (143) Laboratory Tests Test 08/21/24 13:37 White Blood Count 8.5 10^3/uL (4.4-10.8) Medications Medications Dose Ordered Sig/Jorge Route Start Time Stop Time Status Last Admin Dose Admin Aspirin 162 mg ONCE ONCE PO 08/21/24 13:30 08/21/24 13:31 DC 08/21/24 13:48 Lorazepam 1 mg ONCE ONCE IV 08/21/24 13:30 08/21/24 13:31 DC 08/21/24 13:50 Departure 1 Departure Time of Disposition: 14:11 Impression: Primary Impression: Hypertensive emergency Additional Impression: Acute chest pain Disposition: 09 ADMITTED INPATIENT Admit to: ICU Condition: Fair Critical Care Note Critical Care Time?: Yes (45 min-critical care time only) Stability Stability form required: Yes Unstable for transfer: ICU, CCU, PCU, CELIA (Intensive VS monitoring), ED Physician Assesment (Clinical assesment) Heart Score Heart Score: Heart Score Response (Comments) Value History Highly Suspicious 2 EKG Normal 0 Age 45-64 1 Risk Factors >3 or Hx ASHD 2 Troponin Normal limit 0 Total 5 I personally scribed for OUMAR ZARCO MD ([email or web address]) on 08/21/24 at 13:26. Electronically submitted by Prince Hilton ([email or web address]). I personally scribed for OUMAR ZARCO MD ([email or web address]) on 08/21/24 at 13:28. Electronically submitted by Prince Hilton ([email or web address]). I personally scribed for OUMAR ZARCO MD ([email or web address]) on 08/21/24 at 13:33. Electronically submitted by Prince Hilton ([email or web address]). OUMAR ZARCO MD Aug 21, 2024 13:26
[2024-08-21] MEDS: ASPirin 81 mg TAB PO ONE (13:48)
[2024-08-21] MEDS: LORazepam 2MG/ML-1ML VIAL IV ONE (13:50)
[2024-08-21 13:58] LABS: Chloride 105 mmol/L (98-107); Potassium 4.1 mmol/L (3.5-5.1); Sodium 139 mmol/L (136-145)
[2024-08-21 13:59] LABS: Anion Gap 12 (5-15); Basophils # (auto) 0.1 10 ^3/uL (0-0.2); Basophils % (auto) 0.8 % (0.0-2.0); Calcium 10.2 mg/dL (8.7-10.4); Carbon Dioxide 22 mmol/L (20-31); Eosinophils # (auto) 0.1 10 ^3/uL (0-0.8); Eosinophils % (auto) 1.1 % (0.0-7.0); Hematocrit 44.6 % (41.0-53.0); Hemoglobin 15.8 g/dL (13.5-17.5); Lymphocytes # (auto) 1.7 10 ^3/uL (0.4-5.4); Lymphocytes % (auto) 20.6 % (10.0-50.0); Mean Corpuscular Hemoglobin 30.1 pg (28.0-32.0); Mean Corpuscular Hgb Conc. 35.4 g/dL (32.0-36.0); Mean Corpuscular Volume 85.1 fL (80.0-100.0); Monocytes # (auto) 0.6 10 ^3/uL (0-1.3); Monocytes % (auto) 6.6 % (0.0-12.0); Neutrophils % (auto) 70.9 % (37.0-80.0); Nucleated Red Blood Cells % 0.1 %; Platelet Count (auto) 265 10^3/uL (140-450); Red Blood Cells 5.24 10^6/uL (4.5-5.90); Red Cell Distribution Width 14.6 % (11.8-14.3); White Blood Cell 8.5 10^3/uL (4.4-10.8)
--- NOTE | 2024-08-21 14:01 | DVH ---
CHEST RADIOGRAPH Indication: chest pain Technique: Frontal and lateral view of the chest was obtained Comparison: None FINDINGS: Lines and Tubes: None Lungs: Clear Pleura: No effusion. No pneumothorax. Cardiomediastinal contours: Cardiomegaly Bones: Unremarkable IMPRESSION: No evidence of acute disease.
[2024-08-21 14:04] LABS: Glucose 270 mg/dL (74-106)
[2024-08-21 14:05] LABS: BUN/Creatinine Ratio 11.1 (10.0-20.0); Blood Urea Nitrogen 12 mg/dL (9-23)
[2024-08-21] MEDS: ONDANSETRON HCL 4 MG/2 ML VIAL IV ONE ×2 (14:24→17:04)
[2024-08-21] MEDS: MORPHINE SULFATE 4 MG/ML SYR/VIAL IV ONE ×2 (14:25→17:04)
[2024-08-21] MEDS: NICARDIPINE HCL IN SODIUM CHLO 200 ML IV SCH (14:40)
[2024-08-21] MEDS ORDERED: ACETAMINOPHEN 325 MG TAB PO PRN (19:15)
[2024-08-21] MEDS ORDERED: NITROGLYCERIN 0.4 MG SL TAB SL PRN (19:15)
[2024-08-21] MEDS ORDERED: DEXTROSE (50%) 50ML SYRG IV PRN (19:15)
[2024-08-21] MEDS ORDERED: MORPHINE SULFATE INJ 2 MG/ml SYRG IV PRN (19:15)
[2024-08-21 21:02] LABS: Urine Bacteria FEW /hpf (None Seen); Urine Blood Negative /uL (Negative); Urine Clarity Clear (Clear); Urine Color Light-Yellow (Yellow); Urine Mucus FEW (None Seen); Urine Protein, UAD Negative (Negative); Urine Specific Gravity 1.019 (1.001-1.035); Urine Squamous Epithelial Cell FEW /hpf (<5); Urine Urobilinogen Normal (Negative); Urine WBC 4 /HPF (0-3); Urine pH 5.5 (5.0-9.0)
[2024-08-21] MEDS: InsuLIN REG 1unit/0.01ml Soln (100units/ml) SC SCH (22:14)
[2024-08-21] MEDS: ATORVASTATIN 20 MG TAB PO SCH (22:15)
[2024-08-21] MEDS: ACCU-CHEK COMFORT CURVE STRIP VI SCH (22:16)
[2024-08-21] MEDS: CARVEDILOL 3.125 MG TAB PO SCH (22:16)
[2024-08-21 23:00] VITALS: BP 141/88; PULSE 99; RESP 19; O2SAT 94
[2024-08-21 23:15] VITALS: BP 127/83; PULSE 100; RESP 19; O2SAT 94
[2024-08-21 23:30] VITALS: BP 131/82; PULSE 100; PULSE 96; RESP 12; RESP 14; O2SAT 94
[2024-08-21] MEDS: MORPHINE SULFATE INJ 2 MG/ml SYRG IV PRN (23:51)
[2024-08-22] VITALS (76 sets, daily range): BP systolic 114–170; BP diastolic 52–102; PULSE 82–110; RESP 9–21; TEMP 97.8–99; O2SAT 89–98
--- NOTE | 2024-08-22 01:42 | DVH ---
CT SCAN ABDOMEN AND PELVIS WITHOUT CONTRAST CLINICAL HISTORY: Abdominal pain, left upper quadrant lump TECHNIQUE: Helical axial images are obtained from the lung bases through the pelvis without oral cont rast. No intravenous contrast was administered. Coronal and sagittal reformatted images were generate d from thin section reconstructions. One or more of the following radiation dose reduction techniques were used for this examination: automated exposure control, adjustment of the mA and/or kV according to patient size, use of iterative reconstruction technique. COMPARISON: CT CT AB PEL WO CON-NO ORAL OR IV on DOS: 07/29/24 FINDINGS: LOWER THORAX: Mild scattered atelectasis / scarring in the imaged lung bases. ABDOMEN AND PELVIS: Evaluation of visceral and vascular structures is limited due to lack of contrast administration. As visualized, the unenhanced liver, spleen, pancreas and adrenals appear grossly unremarkable. No si zable, radiopaque cholelithiasis or biliary ductal dilatation. No hydroureteronephrosis or sizable, obstructing urinary tract calculi identified. No evidence of abdominal aortic aneurysm. No evidence of bowel obstruction. Normal caliber appendix. No free intraperitoneal air or fluid orly ntified. Small fat containing umbilical hernia. No sizable bladder calculus. No destructive osseous lesions identified. Degenerative changes of the lower lumbar spine. IMPRESSION: No bowel obstruction, free intraperitoneal air/fluid or sizable inflammatory collections identified o n this noncontrast examination. HS:Y
[2024-08-22] MEDS: KETOROLAC TROMETH 30 MG/ML 1ML VIAL IV ONE (01:47)
[2024-08-22] MEDS: HYDROcodone-ACET 5/325MG TAB PO PRN (03:04)
--- NOTE | 2024-08-22 04:13 | DVHHP2 ---
History of Present Illness Reason for Visit: Abdominal pain History of Present Illness 49-year-old male presented with complaints of abdominal pain. He states having diffuse abdominal pain that has been going on for more than two weeks. On arrival patient was noted to be hypertensive in the 180s and was started on a nicardipine drip. Patient reported mild shortness for breath with chest tightness. Currently denies any other symptoms at the moment. Past Medical History Diabetes mellitus, dyslipidemia, hypertension, CHF Past Surgical History Denies Family History Noncontributory Smoke: No ALCOHOL: none Drugs: None Lives: with Family Review of Systems Review of Systems Review of systems are currently negative otherwise addressed in HPI. Allergies: Coded Allergies: No Known Drug Allergy (Verified Allergy, Unknown, 12/24/23) Medications Current Medications Medications Dose Ordered Sig/Jorge Route Start Time Stop Time Status Last Admin Dose Admin Nicardipine/ Sodium Chloride 200 ml @ 50 mls/hr Q4H IV 08/21/24 14:15 08/22/24 00:45 50 MLS/HR Atorvastatin Calcium 40 mg HS PO 08/21/24 22:00 08/21/24 22:15 40 MG Carvedilol 6.25 mg Q12HR PO 08/21/24 22:00 08/21/24 22:16 6.25 MG Empaglifozin 10 mg DAILY PO 08/22/24 10:00 Furosemide 20 mg BIDD PO 08/22/24 06:00 Lisinopril 20 mg DAILY PO 08/22/24 10:00 Diagnostic Test (Pha) 1 strip ACHS 08/21/24 22:00 08/21/24 22:16 1 STRIP Insulin Human Regular ACHS SC 08/21/24 22:00 08/21/24 22:14 3 UNITS Dextrose 50 ml UD PRN IV 08/21/24 19:15 Ondansetron HCl 4 mg Q4HP PRN IV 08/21/24 19:15 Acetaminophen 650 mg Q6HP PRN PO 08/21/24 19:15 Nitroglycerin 0.4 mg Q5MINP PRN SL 08/21/24 19:15 Morphine Sulfate 2 mg Q30M PRN IV 08/21/24 19:15 Acetaminophen/ Hydrocodone Bitart 1 tab Q4HP PRN PO 08/21/24 23:15 08/22/24 03:04 1 TAB Morphine Sulfate 2 mg Q4HPRN PRN IV 08/21/24 23:15 08/22/24 03:53 2 MG Exam Vital Signs Vital Signs Date Time Temp Pulse Resp B/P (MAP) Pulse Ox O2 Delivery O2 Flow Rate FiO2 08/22/24 04:00 90 21 125/82 (96) 94 08/22/24 03:37 Room Air* 0 21 08/22/24 00:08 99.0 99.0 Exam Gen: 49-year-old male in mild distress Skin: Warm, dry, normal color and texture, no rash. HEENT: Normocephalic atraumatic, mucous membranes moist and pink. Neck: Cervical and supraclavicular nodes normal without enlargement, trachea is midline, thyroid gland is normal without masses. Pulmonary: Clear to auscultation and percussion bilaterally. Cardiac: Regular rate and rhythm. No murmur Abdomen: Soft, diffuse tenderness, nondistended, bowel sounds present all 4 quadrants, no guarding, no rigidity, no organomegaly. Extremities: No cyanosis, clubbing, no edema Neuro: Cranial nerves II through XII grossly intact, normal affect and speech, no focal motor deficits. Labs/Xrays ORDERING PHYSICIAN: ILIANA KEITH DNP PROCEDURE(s): ECIDC - ECHO 2D MODE CARDIAC DOP REASON: History of CHF ORDER NUMBER(s): [id number], ACCESSION NUMBER(s): [id number] APPROVED REPORT EXAM: Two-dimensional and M-mode echocardiogram with Doppler and color Doppler. Blood Pressure: 201/129 mmHg INDICATION History of CHF RISK FACTORS Height: 67, Weight: 236 DIMENSIONS LVDd 5.8 (3.8-5.7cm) LA (2D) 4.6 (1.9-4.0cm) Aortic Root 3.4 (2.0- 3.7cm) LVDs 4.9 (2.5-4.0cm) LA (MM) (1.9-4.0cm) Aortic Cusp Exc 1.8 (1.5- 2.0cm) EF (%) 32.0 (55-70%) Rt. Atrium 4.6 (1.9-4.0cm) Asc. Aorta 3.2 cm IVSd 1.2 (0.7-1.1cm) RV (D) (1.8-2.4cm) PWd 1.7 (0.7-1.1cm) Mitral Valve Mitral Mitral Stenosis E wave 0.89m/s MV Mean GR. mmHg A wave 0.52m/s MV Peak GR. 115mmHg E/A ratio 1.7 2D MVA cm2 DECEL Time 151ms PRESS 1/2 Time ms Aortic Valve Aortic Valve Aortic Stenosis V1 0.65m/s AO Mean GR. 2mmHg V2 0.93m/s AO Peak GR. 3mmHg LVOT Diameter 2.2 (1.8-2.4cm) Doppler GUILLERMINA 2.66cm2 Pulmonic Valve V2 0.57m/s Other Information Technically limited study due to body habitus. Conclusion Left ventricle: Mild concentric left ventricle hypertrophy was seen. Left ventricle was dilated. LV EF was 30-35%. Moderate diffuse hypokinesis of left ventricular seen. Pseudo normal LV filling was observed. Right ventricle was dilated with normal systolic function. Both atria were mildly dilated. Aortic valve: Aortic valve was trileaflet. There was no aortic insufficiency disease denies cyanosis. There was mild mitral regurgitation. There was no tricuspid regurgitation. There was mild pulmonary valve insufficiency. As there was no good tricuspid regurgitation jet, right ventricular systolic pressure could not be estimated. There was trace pericardial effusion. SIGNED BY: ESPERANZA DORSEY MD SIGNED DATE/TIME: 07/21/24 1328 ORDERING PHYSICIAN: OUMAR ZARCO MD PROCEDURE(s): CXR2 - CHEST TWO VIEWS ROUTINE REASON: chest pain ORDER NUMBER(s): [id number], ACCESSION NUMBER(s): [id number] CHEST RADIOGRAPH Indication: chest pain Technique: Frontal and lateral view of the chest was obtained Comparison: None FINDINGS: Lines and Tubes: None Lungs: Clear Pleura: No effusion. No pneumothorax. Cardiomediastinal contours: Cardiomegaly Bones: Unremarkable IMPRESSION: No evidence of acute disease. RING PHYSICIAN: LANETTE CUELLOCNP PROCEDURE(s): ABPL - CT AB PEL WO CON-NO ORAL OR IV REASON: Abdominal pain, left upper quadrant lump ORDER NUMBER(s): [id number], ACCESSION NUMBER(s): [id number] CT SCAN ABDOMEN AND PELVIS WITHOUT CONTRAST CLINICAL HISTORY: Abdominal pain, left upper quadrant lump TECHNIQUE: Helical axial images are obtained from the lung bases through the pelvis without oral contrast. No intravenous contrast was administered. Coronal and sagittal reformatted images were generated from thin section reconstructions. One or more of the following radiation dose reduction techniques were used for this examination: automated exposure control, adjustment of the mA and/or kV according to patient size, use of iterative reconstruction technique. COMPARISON: CT CT AB PEL WO CON-NO ORAL OR IV on DOS: 07/29/24 FINDINGS: LOWER THORAX: Mild scattered atelectasis / scarring in the imaged lung bases. ABDOMEN AND PELVIS: Evaluation of visceral and vascular structures is limited due to lack of contrast administration. As visualized, the unenhanced liver, spleen, pancreas and adrenals appear grossly unremarkable. No sizable, radiopaque cholelithiasis or biliary ductal dilatation. No hydroureteronephrosis or sizable, obstructing urinary tract calculi iden tified. No evidence of abdominal aortic aneurysm. No evidence of bowel obstruction. Normal caliber appendix. No free intrape ritoneal air or fluid identified. Small fat containing umbilical hernia. No sizable bladder calculus. No destructive osseous lesions identified. Degenerative changes of the lower lumbar spine. IMPRESSION: No bowel obstruction, free intraperitoneal air/fluid or sizable inflammatory collections identified on this noncontrast examination. HS:Y ATED BY: CHANDANA PELLETIER MD DICTATED DATE/TIME: 08/22/24 0139 Labs Test 08/21/24 14:32 08/21/24 14:30 08/21/24 13:37 08/21/24 13:26 Range/Units Urine Color Light-yellow Yellow Urine Clarity Clear Clear Urine pH 5.5 5.0-9.0 Urine Specific [place] 1.019 1.001-1.035 Urine Protein Negative Negative Urine Ketones Negative Negative Urine Blood Negative Negative /uL Urine Nitrite Negative Negative Urine Bilirubin Negative Negative Urine Urobilinogen Normal Negative mg/dL Urine Leukocyte Esterase Negative Negative /uL Urine RBC 1 0 - 3 /hpf Urine Microscopic WBC 4 H 0-3 /HPF Urine Squamous Epithelial Cells Few <5 /hpf Urine Bacteria Few H None Seen /hpf Urine Mucus Few None Seen Urine Glucose 1+ H Normal mg/dL Troponin I High Sensitivity 6 </=54 ng/L Lipase 34 12-53 U/L White Blood Count 8.5 4.4-10.8 10^3/uL Red Blood Count 5.24 4.5-5.90 10^6/uL Hemoglobin 15.8 13.5-17.5 g/dL Hematocrit 44.6 41.0-53.0 % Mean Corpuscular Volume 85.1 80.0-100.0 fL Mean Corpuscular Hemoglobin 30.1 28.0-32.0 pg Mean Corpuscular Hemoglobin Concent 35.4 32.0-36.0 g/dL Red Cell Distribution Width 14.6 H 11.8-14.3 % Platelet Count 265 140-450 10^3/uL Mean Platelet Volume 8.4 6.9-10.8 fL Neutrophils (%) (Auto) 70.9 37.0-80.0 % Lymphocytes (%) (Auto) 20.6 10.0-50.0 % Monocytes (%) (Auto) 6.6 0.0-12.0 % Eosinophils (%) (Auto) 1.1 0.0-7.0 % Basophils (%) (Auto) 0.8 0.0-2.0 % Neutrophils # (Auto) 6.0 1.6-8.6 10 ^3/uL Lymphocytes # (Auto) 1.7 0.4-5.4 10 ^3/uL Monocytes # (Auto) 0.6 0-1.3 10 ^3/uL Eosinophils # (Auto) 0.1 0-0.8 10 ^3/uL Basophils # (Auto) 0.1 0-0.2 10 ^3/uL Nucleated Red Blood Cells 0.1 % Sodium Level 139 136-145 mmol/L Potassium Level 4.1 3.5-5.1 mmol/L Chloride Level 105 98-107 mmol/L Carbon Dioxide Level 22 20-31 mmol/L Anion Gap 12 5-15 Blood Urea Nitrogen 12 9-23 mg/dL Creatinine 1.08 0.700-1.30 mg/dL Glomerular Filtration Rate Calc 84 >90 mL/min BUN/Creatinine Ratio 11.1 10.0-20.0 Serum Glucose 270 H 74-106 mg/dL Calcium Level 10.2 8.7-10.4 mg/dL POC Glucose 262 H 70-106 mg/dl Assessment/Plan Assessment/Plan Assessment Hypertensive urgency Diabetes mellitus Acute abdominal pain Chest pain Plan Admit the patient to ICU to the hospitalist Continue nicardipine drip As needed antihypertensives Clear liquid diet GI consult Continue treatment per orders. Plan discussed with: Patient My Orders Orders - KHUSHBOOALEXI AGACNP Procedure Category Date Status Time Atorvastatin (Lipitor) PHA 08/21/24 In Process 22:00 Carvedilol Tablet PHA 08/21/24 In Process (Coreg Tablet) 22:00 Empagliflozin PHA 08/22/24 In Process (Jardiance) 10:00 Furosemide Tablet PHA 08/22/24 In Process (Lasix Tablet) 06:00 Lisinopril Tablet PHA 08/22/24 In Process (Zestril Tablet) 10:00 Basic Metabolic Panel LAB 08/22/24 Logged 04:00 Glucose Blood PHA 08/21/24 In Process (Accu-Chek Comfort 22:00 Insulin R (Human) PHA 08/21/24 In Process (Insulin R) 22:00 Dextrose 50% Syringe PHA 08/21/24 In Process 19:15 Admit ADMIT 08/21/24 Transmitted 19:09 Ondansetron Hcl PHA 08/21/24 In Process (Zofran) 19:15 Complete Blood Count LAB 08/22/24 Logged 04:00 Condition: Critical JASWANT 08/21/24 In Process 19:09 Acetaminophen Tablet PHA 08/21/24 In Process (Tylenol Tablet) 19:15 Bedrest With Bathroom JASWANT 08/21/24 In Process Privileg 19:09 Nitroglycerin PHA 08/21/24 In Process Sublingual (Ntrostat 19:15 Morphine Sulfate PHA 08/21/24 In Process Injection 19:15 Stat Ekg For Chest JASWANT 08/21/24 In Process Pain 19:09 Notify Of Changes JASWANT 08/21/24 In Process From Base 19:09 Hospice Massage Therapist For JASWANT 08/21/24 In Process 24 Hours 19:09 Emergency Dysrhythmia [facility] 08/21/24 In Process Protocol 19:09 Rhythm Strips Once JASWANT 08/21/24 In Process Every Shift 19:09 Oxygen By Nasal RT 08/21/24 Transmitted Cannula 19:09 Hydrocodone-Acet PHA 08/21/24 In Process 5/325mg Tab (Bruce 23:15 Morphine Sulfate PHA 08/21/24 In Process Injection 23:15 Ct Ab Pel Wo Con-No CT 08/21/24 Resulted Oral Or Iv 23:07 Transfer Orders XFER 08/21/24 Transmitted 23:43 Mrsa Screen YAZMIN 08/22/24 Logged 03:43 Mrsa Screen YAZMIN 08/22/24 In Process 04:30 Clear Liq Diet DIET 08/22/24 Transmitted Breakfast * Gi Dvh Parking Enforcement Officer CONS 08/22/24 Transmitted 04:08 Date of Service: Aug 21, 2024 Billing Provider: LANETTE CUELLO Common Visit Codes: [id number] CARE 30-74 MIN LANETTE CUELLO Aug 22, 2024 04:13
[2024-08-22] MEDS: FUROSEMIDE 20 MG TAB PO SCH (06:00)
[2024-08-22 06:30] LABS: Basophils # (auto) 0.1 10 ^3/uL (0-0.2); Basophils % (auto) 0.7 % (0.0-2.0); Eosinophils # (auto) 0.2 10 ^3/uL (0-0.8); Eosinophils % (auto) 1.9 % (0.0-7.0); Hematocrit 40.9 % (41.0-53.0); Hemoglobin 14.8 g/dL (13.5-17.5); Lymphocytes # (auto) 1.8 10 ^3/uL (0.4-5.4); Lymphocytes % (auto) 23.1 % (10.0-50.0); Mean Corpuscular Hemoglobin 30.7 pg (28.0-32.0); Mean Corpuscular Hgb Conc. 36.1 g/dL (32.0-36.0); Mean Corpuscular Volume 84.8 fL (80.0-100.0); Monocytes # (auto) 0.9 10 ^3/uL (0-1.3); Monocytes % (auto) 11.7 % (0.0-12.0); Neutrophils # (auto) 4.9 10 ^3/uL (1.6-8.6); Neutrophils % (auto) 62.6 % (37.0-80.0); Nucleated Red Blood Cells % 0.1 %; Platelet Count (auto) 250 10^3/uL (140-450); Red Blood Cells 4.82 10^6/uL (4.5-5.90); Red Cell Distribution Width 14.3 % (11.8-14.3); White Blood Cell 7.9 10^3/uL (4.4-10.8)
[2024-08-22 06:41] LABS: Chloride 107 mmol/L (98-107); Potassium 3.8 mmol/L (3.5-5.1); Sodium 140 mmol/L (136-145)
[2024-08-22 06:42] LABS: Anion Gap 10 (5-15); Calcium 9.6 mg/dL (8.7-10.4); Carbon Dioxide 23 mmol/L (20-31)
[2024-08-22 06:48] LABS: BUN/Creatinine Ratio 12.9 (10.0-20.0); Blood Urea Nitrogen 11 mg/dL (9-23); Glucose 133 mg/dL (74-106)
[2024-08-22] MEDS: EMPAGLIFLOZIN 10 MG TAB PO SCH (10:22)
[2024-08-22] MEDS: LISINOPRIL 20 MG TAB PO SCH (10:23)
[2024-08-22] MEDS: PANTOPRAZOLE 40 MG/10 ML VIAL INJ IV ONE (13:27)
[2024-08-22 13:52] LABS: Albumin 4.3 g/dL (3.2-4.8); Bilirubin, Direct 0.3 mg/dL (<0.3); Bilirubin, Total 0.7 mg/dL (0.2-1.0)
--- NOTE | 2024-08-22 14:12 | DVHINCON2 ---
GI Consult Consult Note GI consult note Date of Consultation: 08/22/2024 Chief Complaint: Abdominal pain Referring Physician: Lamine VARGAS H&P: 49-year-old male admitted with abdominal pain, which started as diffuse pain two weeks ago, but has been having this pain on and off for the past eight months now mostly in the left upper quadrant per patient. Patient having nausea and vomiting, denies hematemesis. No melena or red blood in stool. Complaining of hard stool. Last bowel movement one-week ago. Patient has started using Mounjaro five weeks ago, weight loss of 35 lb in the past two months. Denies alcohol use. No history of drug use Status post EGD and colonoscopy 08/02/2024 Dr. Hanna, and was noted to have a poor colon prep Pathology shows moderate chronic inactive gastritis and benign rectal mucosa with mild congestion Past Medical History: Diabetes mellitus, dyslipidemia, hypertension, CHF Past Surgical History: Denies Social History: NO smoking, drinking ETOH and use of illegal drugs. Family History: Noncontributory Review of Systems: Constitutional: no fever, chill, weight loss HEENT: no eye pain, no hearing loss, no oral lesion, no scleral icterus Heart: no chest pain, no chest pressure Lung: no cough, no dyspnea with exertion Abdomen: see HPI Physical exam: General: NAD, AAOX3 Chest: lung warren clear to auscultation Heart: RRR, no murmur Abdomen: Moderate generalized tenderness to palpation, +BS Labs: Labs Test 08/22/24 05:29 08/21/24 14:32 08/21/24 14:30 08/21/24 13:26 Range/Units White Blood Count 7.9 4.4-10.8 10^3/uL Red Blood Count 4.82 4.5-5.90 10^6/uL Hemoglobin 14.8 13.5-17.5 g/dL Hematocrit 40.9 L 41.0-53.0 % Mean Corpuscular Volume 84.8 80.0-100.0 fL Mean Corpuscular Hemoglobin 30.7 28.0-32.0 pg Mean Corpuscular Hemoglobin Concent 36.1 H 32.0-36.0 g/dL Red Cell Distribution Width 14.3 11.8-14.3 % Platelet Count 250 140-450 10^3/uL Mean Platelet Volume 8.3 6.9-10.8 fL Neutrophils (%) (Auto) 62.6 37.0-80.0 % Lymphocytes (%) (Auto) 23.1 10.0-50.0 % Monocytes (%) (Auto) 11.7 0.0-12.0 % Eosinophils (%) (Auto) 1.9 0.0-7.0 % Basophils (%) (Auto) 0.7 0.0-2.0 % Neutrophils # (Auto) 4.9 1.6-8.6 10 ^3/uL Lymphocytes # (Auto) 1.8 0.4-5.4 10 ^3/uL Monocytes # (Auto) 0.9 0-1.3 10 ^3/uL Eosinophils # (Auto) 0.2 0-0.8 10 ^3/uL Basophils # (Auto) 0.1 0-0.2 10 ^3/uL Nucleated Red Blood Cells 0.1 % Sodium Level 140 136-145 mmol/L Potassium Level 3.8 3.5-5.1 mmol/L Chloride Level 107 98-107 mmol/L Carbon Dioxide Level 23 20-31 mmol/L Anion Gap 10 5-15 Blood Urea Nitrogen 11 9-23 mg/dL Creatinine 0.85 0.700-1.30 mg/dL Glomerular Filtration Rate Calc 107 >90 mL/min BUN/Creatinine Ratio 12.9 10.0-20.0 Serum Glucose 133 #H 74-106 mg/dL Calcium Level 9.6 8.7-10.4 mg/dL Total Bilirubin 0.7 0.2-1.0 mg/dL Direct Bilirubin 0.3 <0.3 mg/dL Aspartate Amino Transferase (AST) 21 <34 U/L Alanine Aminotransferase (ALT) 20 7-40 U/L Alkaline Phosphatase 62 46-116 U/L Total Protein 7.0 5.7-8.2 g/dL Albumin 4.3 3.2-4.8 g/dL Lipase 30 12-53 U/L Urine Color Light-yellow Yellow Urine Clarity Clear Clear Urine pH 5.5 5.0-9.0 Urine Specific [place] 1.019 1.001-1.035 Urine Protein Negative Negative Urine Ketones Negative Negative Urine Blood Negative Negative /uL Urine Nitrite Negative Negative Urine Bilirubin Negative Negative Urine Urobilinogen Normal Negative mg/dL Urine Leukocyte Esterase Negative Negative /uL Urine RBC 1 0 - 3 /hpf Urine Microscopic WBC 4 H 0-3 /HPF Urine Squamous Epithelial Cells Few <5 /hpf Urine Bacteria Few H None Seen /hpf Urine Mucus Few None Seen Urine Glucose 1+ H Normal mg/dL Troponin I High Sensitivity 6 </=54 ng/L POC Glucose 262 H 70-106 mg/dl Imaging: CT abdomen pelvis IMPRESSION: No bowel obstruction, free intraperitoneal air/fluid or sizable inflammatory collections identified on this noncontrast examination. Assessment: Abdominal pain Hypertensive urgency Constipation Plan: -discussed with Dr. Roger Drug screen Labs for lipase and LFTs Abdominal ultrasound Colace and MiraLax, consider Fleet's enema Protonix and Zofran We will continue to follow patient Plan discussed with patient and RN Thank you for this consult Date of Service: Aug 22, 2024 Billing Provider: FANY OLGUIN Common Visit Codes: CONSULT ONLY Consultation Codes: [id number] CONSULT <60MIN FANY OLGUIN Aug 22, 2024 14:12
[2024-08-22] MEDS: POLYETHYLENE GLYCOL 17 GM PWDR PO ONE (14:15)
[2024-08-22] MEDS: hydrALAZINE HCL 20 MG/ML VL IV PRN (14:17)
[2024-08-22 14:40] LABS: Albumin 4.5 g/dL (3.2-4.8); Bilirubin, Total 0.9 mg/dL (0.2-1.0); Total Protein 7.4 g/dL (5.7-8.2)
[2024-08-22 14:46] LABS: Bilirubin, Direct 0.4 mg/dL (<0.3)
--- NOTE | 2024-08-22 15:32 | DVH ---
Technique: Real-time ultrasound imaging of the abdomen was performed with grayscale and color Doppler . Indication: abd pain, LUQ Comparison: CT abdomen from today Findings: Liver measures 15.9 cm. It is increased in echogenicity and echotexture without focal mass. Portal v ein is normal in caliber and demonstrates normal hepatopetal flow. Gallbladder demonstrates no evidence for cholelithiasis. There is no pericholecystic fluid. The wall thickness is normal. The common bile duct measures 3 mm. No intrahepatic biliary ductal dilatation. The right kidney measures 11.5 cm. The left kidney measures 11.8 cm. No hydronephrosis or sonographic evidence of nephrolithiasis. Possible left renal lower pole exophytic mass measuring 3.3 cm. The visualized portion of the pancreas is unremarkable. Spleen measures 9.6 cm. The visualized portion of the IVC is unremarkable. Impression: Echogenic liver which can be seen with hepatic steatosis, cirrhosis. Possible left renal lower pole exophytic mass 3.3 cm and is isoechoic. Recommend MRI abdomen with an d without contrast to evaluate.
--- NOTE | 2024-08-22 15:38 | DVHPN2 ---
Subjective Patient continues to complain of abdominal pain. Otherwise no issues Reviewed: H&P Changes from previous H/P or p: No Changes General: Per HPI Objective Vitals Vital Signs Date Time Temp Pulse Resp B/P (MAP) Pulse Ox O2 Delivery O2 Flow Rate FiO2 08/22/24 14:30 91 14 96 08/22/24 14:00 Room Air* 0 21 08/22/24 12:00 98.6 98.6 Intake/Output Intake and Output 08/22/24 07:00 Intake Total 411 ml Balance 411 ml Intake Oral 236 ml IV Total 175 ml # Voids 1 Exam GEN: Healthy appearing, well-developed, NAD. HEENT: NC/AT; MMM. CV: RRR, no m/r/g. LUNGS: CTAB, no w/r/c. ABD: Soft, NT/ND, NBS, no masses or organomegaly. EXT: skin Warm, well perfused. no rashes. No clubbing, cyanosis, or edema. NEURO: Ambulating with no limitations. No focal deficits. Medications Current Medications Medications Dose Ordered Sig/Jorge Route Start Time Stop Time Status Last Admin Dose Admin Nicardipine/ Sodium Chloride 200 ml @ 50 mls/hr Q4H IV 08/21/24 14:15 08/22/24 00:45 50 MLS/HR Atorvastatin Calcium 40 mg HS PO 08/21/24 22:00 08/21/24 22:15 40 MG Carvedilol 6.25 mg Q12HR PO 08/21/24 22:00 08/22/24 10:24 6.25 MG Empaglifozin 10 mg DAILY PO 08/22/24 10:00 08/22/24 10:22 10 MG Furosemide 20 mg BIDD PO 08/22/24 06:00 08/22/24 06:00 20 MG Lisinopril 20 mg DAILY PO 08/22/24 10:00 08/22/24 10:23 20 MG Diagnostic Test (Pha) 1 strip ACHS 08/21/24 22:00 08/22/24 11:42 1 STRIP Insulin Human Regular ACHS SC 08/21/24 22:00 08/22/24 11:42 2 UNITS Dextrose 50 ml UD PRN IV 08/21/24 19:15 Ondansetron HCl 4 mg Q4HP PRN IV 08/21/24 19:15 Acetaminophen 650 mg Q6HP PRN PO 08/21/24 19:15 Nitroglycerin 0.4 mg Q5MINP PRN SL 08/21/24 19:15 Morphine Sulfate 2 mg Q30M PRN IV 08/21/24 19:15 Acetaminophen/ Hydrocodone Bitart 1 tab Q4HP PRN PO 08/21/24 23:15 08/22/24 08:04 1 TAB Morphine Sulfate 2 mg Q4HPRN PRN IV 08/21/24 23:15 08/22/24 11:58 2 MG Hydralazine HCl 10 mg Q6HP PRN IV 08/22/24 04:15 08/22/24 14:17 10 MG Pantoprazole Sodium 40 mg DAILY IV 08/23/24 10:00 Docusate Sodium 200 mg BIDPRN PRN PO 08/22/24 14:15 UNV Laboratory Results Laboratory Tests 08/22/24 05:29 Chemistry Test 08/22/24 05:29 08/22/24 14:07 Albumin 4.3 g/dL (3.2-4.8) 4.5 g/dL (3.2-4.8) Calcium Level 9.6 mg/dL (8.7-10.4) Total Protein 7.0 g/dL (5.7-8.2) 7.4 g/dL (5.7-8.2) Lipid panel Test 08/22/24 05:29 08/22/24 14:07 Lipase 30 U/L (12-53) 30 U/L (12-53) LFT Test 08/22/24 05:29 08/22/24 14:07 Alanine Aminotransferase (ALT) 20 U/L (7-40) 21 U/L (7-40) Alkaline Phosphatase 62 U/L (46-116) 68 U/L (46-116) Aspartate Amino Transferase (AST) 21 U/L (<34) 22 U/L (<34) Direct Bilirubin 0.3 mg/dL (<0.3) 0.4 mg/dL (<0.3) H Total Bilirubin 0.7 mg/dL (0.2-1.0) 0.9 mg/dL (0.2-1.0) Urinalysis Test 08/21/24 14:32 Urine Color Light-yellow (Yellow) Urine Clarity Clear (Clear) Urine pH 5.5 (5.0-9.0) Urine Specific [place] 1.019 (1.001-1.035) Urine Protein Negative (Negative) Urine Ketones Negative (Negative) Urine Blood Negative /uL (Negative) Urine Nitrite Negative (Negative) Urine Bilirubin Negative (Negative) Urine Urobilinogen Normal mg/dL (Negative) Urine Leukocyte Esterase Negative /uL (Negative) Urine RBC 1 /hpf (0 - 3) Urine Microscopic WBC 4 /HPF (0-3) H Urine Squamous Epithelial Cells Few /hpf (<5) Urine Bacteria Few /hpf (None Seen) H Urine Mucus Few (None Seen) Urine Glucose 1+ mg/dL (Normal) H Labs and/or images reviewed: Labs reviewed by me, Image(s) reviewed by me Assessment/Plan Assessment/Plan 08/22 - patient returns with the same abdominal pain that he had 2 visits ago. Patient was hypotensive and not improving with IV antihypertensives. Patient was started on IV antihypertensive drip nicardipine which controlled the blood pressure. Patient is back to his home meds and blood pressure control and systolic bone 40s. Admitting team has consulted GI. GI wants LDH, lipase, UDS. We will continue to follow up with GI. Hypertensive emergency Acute intractable abdominal pain Current G LP 1 agonist use Sirs without end-organ damage Intravascular volume depletion Gastroenteritis, infectious etiology possible Musculoskeletal pain possible Psychosomatic pain possible History of CHF History hypertension History diabetes -pain control PRN -a.c. HS blood glucose checks - continue home meds including (Lipitor, Coreg, Jardiance, Lasix, lisinopril,) - we will do trial of Reglan, IV ppi Protonix b.i.d. - blood pressure control patient can deescalate to telemetry Clear liquid diet Lovenox IV PPI b.i.d. Tele Full code Plan discussed with: Patient My Orders Orders - CAROLINA OVALLE MD Procedure Category Date Status Time Pantoprazole PHA 08/23/24 In Process (Protonix) 10:00 Metoclopramide Tablet PHA 08/22/24 Logged (Reglan Tablet) 22:00 Date of Service: Aug 22, 2024 Billing Provider: CAROLINA OVALLE MD Common Visit Codes: [id number] INP/OBS CARE(HIGH) CAROLINA OVALLE MD Aug 22, 2024 15:38
[2024-08-22 16:13] LABS: Amphetamine Screen, Urine Neg (NEGATIVE); Barbiturate Scree,Urine Neg (NEGATIVE); Benzodiazephine Screen, Urine Neg (NEGATIVE); Cannabinoid Screen, Urine Neg (NEGATIVE); Cocaine Screen, Urine Neg (NEGATIVE); Opiate Scree,Urine Pos (NEGATIVE); Phencyclidine Screen, Urine Neg (NEGATIVE)
[2024-08-22] MEDS: ONDANSETRON HCL 4 MG/2 ML VIAL IV PRN (18:56)
[2024-08-22] MEDS: PANTOPRAZOLE 40 MG/10 ML VIAL INJ IV SCH (21:40)
[2024-08-22] MEDS ORDERED: METOCLOPRAMIDE HCL 10 MG TAB PO ONE (22:00)
[2024-08-22] MEDS: METOCLOPRAMIDE HCL 10 MG TAB PO SCH (22:51)
[2024-08-22] MEDS: METOCLOPRAMIDE HCL 10 MG TAB PO ONE (22:53)
[2024-08-23] VITALS (7 sets, daily range): BP systolic 126–152; BP diastolic 78–101; PULSE 90–98; RESP 16–19; TEMP 97.8–99.2; O2SAT 94–95
[2024-08-23 06:00] LABS: Alanine Aminotransferase 22 U/L (7-40); Albumin 4.4 g/dL (3.2-4.8); Alkaline Phosphatase 68 U/L (46-116); Anion Gap 8 (5-15); Aspartate Aminotransferase 24 U/L (<34); BUN/Creatinine Ratio 11.3 (10.0-20.0); Blood Urea Nitrogen 12 mg/dL (9-23); Calcium 10.1 mg/dL (8.7-10.4); Carbon Dioxide 31 mmol/L (20-31); Chloride 103 mmol/L (98-107); Potassium 3.8 mmol/L (3.5-5.1); Sodium 142 mmol/L (136-145); Total Protein 7.2 g/dL (5.7-8.2)
[2024-08-23 06:33] LABS: Glucose 110 mg/dL (74-106)
[2024-08-23] MEDS ORDERED: OMEP-448 PO (08:33)
[2024-08-23] MEDS ORDERED: PANTOPRAZOLE 40 MG/10 ML VIAL INJ IV SCH (10:00)
[2024-08-23] MEDS: ENOXAPARIN SOD 40 MG/0.4 ML SYRINGE SC SCH (10:04)
[2024-08-23] MEDS: DOCUSATE SOD 100 MG CAP PO PRN (11:41)
[2024-08-23] MEDS: hydrALAZINE HCL 20 MG/ML VL IV PRN (15:05)
[2024-08-23] MEDS: LISINOPRIL 20 MG TAB PO ONE (16:03)
[2024-08-23] MEDS ORDERED: METO10TA3 PO (16:24)
[2024-08-23] MEDS ORDERED: CARV6.2551 PO (16:24)
[2024-08-23] MEDS ORDERED: LISI40TA16 PO (16:24)
--- NOTE | 2024-08-23 17:06 | DVHDS2 ---
Discharge Summary Date of Admission Aug 21, 2024 at 19:09 Date of Discharge: Aug 23, 2024 Labs/Diagnostic Data: Laboratory Results Test 08/23/24 11:49 08/23/24 05:05 08/22/24 14:07 08/22/24 14:05 POC Glucose 130 mg/dl (70-106) Sodium Level 142 mmol/L (136-145) Potassium Level 3.8 mmol/L (3.5-5.1) Chloride Level 103 mmol/L (98-107) Carbon Dioxide Level 31 mmol/L (20-31) Anion Gap 8 (5-15) Blood Urea Nitrogen 12 mg/dL (9-23) Creatinine 1.06 mg/dL (0.700-1.30) Glomerular Filtration Rate Calc 86 mL/min (>90) BUN/Creatinine Ratio 11.3 (10.0-20.0) Serum Glucose 110 mg/dL (74-106) Calcium Level 10.1 mg/dL (8.7-10.4) Total Bilirubin 1.0 mg/dL (0.2-1.0) Aspartate Amino Transferase (AST) 24 U/L (<34) Alanine Aminotransferase (ALT) 22 U/L (7-40) Alkaline Phosphatase 68 U/L (46-116) Total Protein 7.2 g/dL (5.7-8.2) Albumin 4.4 g/dL (3.2-4.8) Direct Bilirubin 0.4 mg/dL (<0.3) Lipase 30 U/L (12-53) Urine Opiates Screen Pos (NEGATIVE) Urine Fentanyl Screen Neg (NEGATIVE) Urine Barbiturates Screen Neg (NEGATIVE) Urine Phencyclidine Screen Neg (NEGATIVE) Urine Amphetamines Screen Neg (NEGATIVE) Urine Benzodiazepines Screen Neg (NEGATIVE) Urine Cocaine Screen Neg (NEGATIVE) Urine Cannabinoids Screen Neg (NEGATIVE) Test 08/22/24 05:29 08/21/24 14:32 08/21/24 14:30 White Blood Count 7.9 10^3/uL (4.4-10.8) Red Blood Count 4.82 10^6/uL (4.5-5.90) Hemoglobin 14.8 g/dL (13.5-17.5) Hematocrit 40.9 % (41.0-53.0) Mean Corpuscular Volume 84.8 fL (80.0-100.0) Mean Corpuscular Hemoglobin 30.7 pg (28.0-32.0) Mean Corpuscular Hemoglobin Concent 36.1 g/dL (32.0-36.0) Red Cell Distribution Width 14.3 % (11.8-14.3) Platelet Count 250 10^3/uL (140-450) Mean Platelet Volume 8.3 fL (6.9-10.8) Neutrophils (%) (Auto) 62.6 % (37.0-80.0) Lymphocytes (%) (Auto) 23.1 % (10.0-50.0) Monocytes (%) (Auto) 11.7 % (0.0-12.0) Eosinophils (%) (Auto) 1.9 % (0.0-7.0) Basophils (%) (Auto) 0.7 % (0.0-2.0) Neutrophils # (Auto) 4.9 10 ^3/uL (1.6-8.6) Lymphocytes # (Auto) 1.8 10 ^3/uL (0.4-5.4) Monocytes # (Auto) 0.9 10 ^3/uL (0-1.3) Eosinophils # (Auto) 0.2 10 ^3/uL (0-0.8) Basophils # (Auto) 0.1 10 ^3/uL (0-0.2) Nucleated Red Blood Cells 0.1 % Urine Color Light-yellow (Yellow) Urine Clarity Clear (Clear) Urine pH 5.5 (5.0-9.0) Urine Specific [place] 1.019 (1.001-1.035) Urine Protein Negative (Negative) Urine Ketones Negative (Negative) Urine Blood Negative /uL (Negative) Urine Nitrite Negative (Negative) Urine Bilirubin Negative (Negative) Urine Urobilinogen Normal mg/dL (Negative) Urine Leukocyte Esterase Negative /uL (Negative) Urine RBC 1 /hpf (0 - 3) Urine Microscopic WBC 4 /HPF (0-3) Urine Squamous Epithelial Cells Few /hpf (<5) Urine Bacteria Few /hpf (None Seen) Urine Mucus Few (None Seen) Urine Glucose 1+ mg/dL (Normal) Troponin I High Sensitivity 6 ng/L (</=54) Other Laboratory Tests 08/23/24 05:05 08/22/24 05:29 Brief Hx & Hospital Course: History of Present Illness: 49-year-old male with PMHx Diabetes mellitus, dyslipidemia, hypertension, CHF. Patient presented with complaints of abdominal pain. He states having diffuse abdominal pain that has been going on for more than two weeks. On arrival patient was noted to be hypertensive in the 180s and was started on a nicardipine drip. Patient reported mild shortness for breath with chest tightness. Currently denies any other symptoms at the moment. Summary: 08/22 - patient returns with the same abdominal pain that he had 2 visits ago. Patient was hypotensive and not improving with IV antihypertensives. Patient was started on IV antihypertensive drip nicardipine which controlled the blood pressure. Patient is back to his home meds and blood pressure control and systolic bone 40s. Admitting team has consulted GI. GI wants LDH, lipase, UDS. We will continue to follow up with GI. 08/23- lipase is negative, UDS has opiates positive, ultrasound abdomen shows right renal exophytic mass which is less than 4 cm and repeat needed outpatient. patient appears to be not in pain and asking for severe pain control, i.e. IV morphine and IV Dilaudid. There is concern that these episodes /Flare-ups may be psychosomatic. patient is also on multiple pain medications outpatient. There is loss of medications that are for constipation and also for antispasmodics. It is also unclear if patient is compliant with medications which could be resulting in recurrent type blood pressure visits. Patient has had EGD and colonoscopy, last visit colonoscopy was poor prep and needs to be re-evaluate outpatient. GI has seen the patient and have developed outpatient plan. Today visit patient appears comfortable he has his laptop set up to watch TV shows. Is complaining of severe pain but vitals are normal. Blood pressure was slightly elevated up to 160s which is controlled with p.o. medications now. Patient vital signs stable patient ready for discharge as per plan below. Discharge diagnosis: Hypertensive emergency Acute intractable abdominal pain Current GLP 1 agonist use Sirs without end-organ damage Intravascular volume depletion Gastroenteritis, infectious etiology possible internal hemorrhoids polypharmacy Small Hiatal hernia Mild esophagitis LA classification B Mild antral gastritis Musculoskeletal pain possible Psychosomatic pain possible History of CHF History hypertension History diabetes Discharge plan : - Start Coreg 6 mg twice daily , lisinopril 40 daily, - Stop omeprazole/Nexium, instead continue taking Protonix daily - metoclopramide 10 mg daily for 4 days and extra tablets 4 as needed up to twice daily. - Stop Coreg 3 mg, start gabapentin 300,. Lisinopril 20, - very important to stop Mounjaro/ tirzepatide as his may have cause this visits related abdominal pain - continue taking Protonix once daily, Carafate suspension twice daily ) - otherwise continue other home medications ( aspirin, Bentyl, Cymbalta, Lasix, hydroxyzine, Lantus, Humalog, Linzess, polyethylene glycol, Lyrica, Senokot S, tramadol, trazodone) - follow up with GI Dr. Roger - follow up with PCP to review discharge. May need to consider CTA abdomen to evaluate veins for renal vein and splenic vein. May need to consider gastric emptying study. Patient will need thorough medication reconciliation. - take low sodium diet Condition at Discharge: Fair Final Diagnosis/Problems List Hypertensive emergency Acute intractable abdominal pain Current GLP 1 agonist use Sirs without end-organ damage Intravascular volume depletion Gastroenteritis, infectious etiology possible internal hemorrhoids polypharmacy Small Hiatal hernia Mild esophagitis LA classification B Mild antral gastritis Musculoskeletal pain possible Psychosomatic pain possible History of CHF History hypertension History diabetes Discharge Disposition: Home Discharge Instruct/Medications Diet: Cardiac 2g Na,low cholest Activity: No Restrictions, As Tolerated Follow Up/Referral: See below Medications: See below Discharge Statement: "Patient was advised to return to the ER or call 911 if any headaches, dizziness, shortness of breath, chest pain, abdominal pain, bleeding, fevers, or worsening of medical condition. Patient was counseled about treatment plan, medications, possible side effects, patientverbalized understanding. All questions were answered to the best of my ability. This discharge took greater then 30 minutes in planning, reviewing documentation, counseling the patient, and discussing with other team members." Date of Service: Aug 23, 2024 Billing Provider: CAROLINA OVALLE MD Common Visit Codes: 10541-WRR/OBS DISCH DAY >30min CAROLINA OVALLE MD Aug 23, 2024 17:06
--- NOTE | 2024-08-23 21:01 | DVHPN2 ---
Progress Note - Dictate Date Seen: Aug 23, 2024 (Late entry Patient seen at 3:00 p.m.) Medical Necessity Reason Pt with a Central, PICC or Fol: No Subjective Patient seen at bedside Sitting up in bed in no acute distress Patient however complains of generalized abdominal pain more prominent in the left upper quadrant Recent endoscopy by Dr. Hanna had shown a small hiatal hernia and mild gastritis Recent colonoscopy by Dr. Hanna had shown constipation with a poor prep otherwise grossly normal examination vital signs Vital Sign Date Time Temp Pulse Resp B/P (MAP) Pulse Ox O2 Delivery O2 Flow Rate FiO2 08/23/24 18:12 99.2 98 16 95 08/23/24 17:00 146/89 (108) 08/23/24 08:00 Room Air* 0 21 Total Intake and Output 08/22/24 08/22/24 08/23/24 15:00 23:00 07:00 Intake Total 720 ml 700 ml 0 ml Output Total 751 ml Balance 720 ml -51 ml 0 ml objective General: NAD, AAOX3 Chest: lung warren clear to auscultation Heart: RRR, no murmur Abdomen: Moderate generalized tenderness to palpation, +BS laboratory and microbiology Laboratory Tests 08/23/24 05:05 08/22/24 05:29 Test 08/23/24 05:05 Range/Units Serum Glucose 110 H 74-106 mg/dL Abd USG Impression: Echogenic liver which can be seen with hepatic steatosis, cirrhosis. Possible left renal lower pole exophytic mass 3.3 cm and is isoechoic. Problems(with codes): (1) Hypertensive emergency (2) Hypertensive urgency (3) Intractable abdominal pain (4) Acute abdominal pain (5) Diabetes mellitus with hyperglycemia (6) Cirrhosis Prognosis Plan Discharge planning is in progress Patient was advised to increase fluid and fiber intake take stool softeners MiraLax 17 g p.o. daily Pain control and Outpatient follow up with GI Services to discuss elective repeat colonoscopy with better bowel prep Plan discussed with: Patient, Other (Dr Carvalho) MASON WATSON MD Aug 23, 2024 21:01
[2024-08-24] MEDS ORDERED: LISINOPRIL 20 MG TAB PO SCH (10:00)
--- NOTE | 2024-08-29 14:46 | ECG ---
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
== END 2024-08-23 18:46 | disposition home or self-care (01) | DRG 199 ==
LOC: ER 13:12 → OVERFLOW 19:09 → TELE-WESTW 08-22 23:00
PROVIDERS: ADMIT Student in an Organized Health Care Education/Training Program; ATTEND Student in an Organized Health Care Education/Training Program
DX: I16.1 Hypertensive emergency (principal); R65.10 Systemic inflammatory response syndrome (SIRS) of non-infectious origin without acute organ dysfunction; I50.9 Heart failure, unspecified; K74.60 Unspecified cirrhosis of liver; E86.9 Volume depletion, unspecified; A09 Infectious gastroenteritis and colitis, unspecified; I11.0 Hypertensive heart disease with heart failure; E11.65 Type 2 diabetes mellitus with hyperglycemia; K59.00 Constipation, unspecified; E78.5 Hyperlipidemia, unspecified; K20.90 Esophagitis, unspecified without bleeding; K29.70 Gastritis, unspecified, without bleeding; K44.9 Diaphragmatic hernia without obstruction or gangrene; K64.8 Other hemorrhoids; Z79.4 Long term (current) use of insulin; Z79.84 Long term (current) use of oral hypoglycemic drugs; Z79.899 Other long term (current) drug therapy; Z79.82 Long term (current) use of aspirin
CPT/HCPCS: 36415; 71046; 74176; 76700; 80048; 80053; 80076; 80307; 81001; 82962; 83690; 84484; 85025; 87081; 96374; 96375; 99291; G0378; J1815; J1885; J2405; J2470

== ENCOUNTER 2024-08-28 08:31 | Inpatient (IN) | payer MEDICAID ==
[~2024-08-28] VITALS: Ht 170.2 cm; Wt 102.0 kg
[~2024-08-28 08:31] MED LIST changes: -ACET-1882 PO; -ATOR20TA50 PO; -CARV3.1240 PO; +CARV6.2551 PO; -CHOLCAP10 PO; -EMPA1TAB PO; -GABA-1250 PO; -GLIP10TA9 PO; -LISI20TA56 PO; +LISI40TA16 PO; +METO10TA3 PO; -TIRZ5INJ SC
--- NOTE | 2024-08-28 09:39 | ED.PDOC ---
HPI Comments 49 y/o M, with PMHx of CHF, DM, HLD, and HTN presents to the ED for CC of chest pain. Patient reports, that he was sent by PCP to ED yesterday (08/28/24) for elevated blood pressure, patient returned today (08/28/24) for further evaluation when he developed new onset chest pain. Patient describes chest pain to be substernal and pressure like in nature radiating to his right arm. Patient relays, associated symptoms of dizziness and shortness of breath as a result of chest pain. Patient denies nausea, vomiting, headache, fatigue, or shortness of breath. No other symptoms or modifying factors present at this time. Chief Complaint: Chest Pain Time Seen by MD: 09:30 Primary Care Provider: ? Reviewed Notes: Nurses Notes, Medications, Allergies Allergies: Coded Allergies: No Known Drug Allergy (Verified Allergy, Unknown, 12/24/23) Home Meds Active Scripts Lisinopril (Lisinopril) 40 Mg Tab, 1 TAB PO DAILY, #30 TAB 1 Refill Prov:CAROLINA OVALLE MD 08/23/24 Carvedilol (Carvedilol) 6.25 Mg Tab, 1 TAB PO BID, #60 TAB 1 Refill Prov:CAROLINA OVALLE MD 08/23/24 Metoclopramide Hcl (Metoclopramide Hcl) 10 Mg Tab, 10 MG PO BID for 4 Days, #15 TAB 0 Refills Prov:CAROLINA OVALLE MD 08/23/24 Duloxetine Hcl (Cymbalta) 20 Mg Cap, 1 CAP PO DAILY for 30 Days, #30 CAP Prov:ALE HARRIS RESIDENT 08/15/24 Hydrocodone-Acetaminophen (Hydrocodone Bitartrate/AC 5-325 mg) 1 Tab Tab, 1 TAB PO Q8HPRN PRN for 7 Days, #21 TAB Prov:MARY BOSCH MD 08/15/24 Sennosides-Docusate Sodium (Senokot S) 1 Tab Tab, 1 TAB PO BID for 14 Days, #30 TAB 0 Refills Prov:CAROLINA OVALLE MD 08/02/24 Polyethylene Glycol 3350 (Goodsense Clearlax) 17 Gm/Scoop Pow, 17 GM PO DAILY for 10 Days, #17.9 POW 0 Refills Prov:CAROLINA OVALLE MD 08/02/24 Sucralfate (CARAFATE SUSP) 1 Gm/10 Ml Ss, 10 ML PO BID for 30 Days, #600 ML 0 Refills Prov:CAROLINA OVALLE MD 08/02/24 Pantoprazole Sodium Sesquihydr (Protonix) 40 Mg Tab, 40 MG PO DAILY for 30 Days, #30 TAB 1 Refill Prov:CAROLINA OVALLE MD 08/02/24 Dicyclomine Hcl (BENTYL CAPSULE) 10 Mg Cp, 1 CAP PO Q6HPRN PRN, #30 CAP 0 Refills Prov:CAROLINA OVALLE MD 08/02/24 Insulin Glargine (Lantus) 100 Unit/Ml Inj, 35 UNITS SC BID@1000,2200 for 30 Days, #1 INJ Prov:CORRINE GRAHAM [facility] 12/28/23 Ergocalciferol (VITAMIN D 11515 UNIT) 50,000 [place], [address] UNIT PO Q7D for 30 Days, #30 CAP Prov:[facility] 12/28/23 Reported Medications Pregabalin (Lyrica) 50 Mg Cap, 1 CAP PO BID, #60 CAP 08/15/24 Insulin Lispro (Humalog Kwikpen) 100 Unit/Ml Inj, 25 UNITS SC AC for 40 Days, #30 08/14/24 Aspirin (Aspirin Low Dose) 81 Mg Tab, 1 TAB PO DAILY for 90 Days, #90 08/14/24 Trazodone Hcl (Trazodone Hcl) 50 Mg Tab, 1 TAB PO QHSP PRN for PSYCHOPHYSIOLOGIC INSOMNIA for 30 Days, #30 08/14/24 Furosemide (Furosemide) 20 Mg Tab, 1 TAB PO BID for 90 Days, #180 08/14/24 Hydroxyzine Hcl (Hydroxyzine Hcl) 25 Mg Tab, 1 TAB PO DAILY for 30 Days, #30 08/14/24 Linaclotide Base (LINZESS) 145 Mcg Cap, 1 CAP PO DAILY for 30 Days, #30 08/14/24 Nitroglycerin (NTROSTAT SUBLINGUAL) 0.4 Mg Sl, 0.4 MG SL PRN, TAB *MAY REPEAT EVERY 5 MINUTES X 3 TOTAL IF NO RELIEF, INITIATE ANALGESIC THERAPY. NOTIFY PHYSICIAN *Do not crush. 12/25/23 Tramadol Hcl (Tramadol Hcl) 50 Mg Tab, 50 MG PO, TAB 12/25/23 Discontinued Reported Medications Omeprazole (Omeprazole Dr) 40 Mg Cap, 40 MG PO DAILY, CAP 08/23/24 Tirzepatide (Mounjaro) 5 Mg/0.5 Ml Inj, 5 MG SC QWEEKLY for 28 Days, #2 08/14/24 Carvedilol (Carvedilol) 3.125 Mg Tab, 2 TAB PO BID 08/13/24 Discontinued Scripts Gabapentin (Gabapentin) 300 Mg Cap, 1 CAP PO TID for 10 Days, #90 CAP 5 Refills Prov:ALE HARRIS RESIDENT 08/15/24 Lisinopril (Lisinopril) 20 Mg Tab, 20 MG PO DAILY for 30 Days, #30 TAB Prov:CORRINE GRAHAM RESIDENT 12/28/23 Information Source: Patient Mode of Arrival: Ambulatory Severity: Moderate Timing: Minutes Duration: Since onset Prehospital treatment: None Location: Substernal Radiation: Arm (R) Onset: At Rest Cardiac Risk Factors: Hyperlipidemia, HTN PE Risk Factors: None History of: None Modifying Factors: Nothing Associated Signs and Symptoms: SOB Past Medical History PAST MEDICAL HISTORY: CHF, DM, High Lipids, HTN Surgical History: Denies all surgeries Family History Family History: Reviewed,noncontributory to illness Social History Smoker: Non-Smoker Alcohol: Denies ETOH Use Drugs: Denies Drug Use Lives In: Home Constitutional: denies: chills, diaphoresis, fatigue, fever, malaise, sweats, weakness, others EENTM: denies: blurred vision, double vision, ear bleeding, ear discharge, ear drainage, ear pain, ear ringing, eye pain, eye redness, hearing loss, mouth pain, mouth swelling, nasal discharge, nose bleeding, nose congestion, nose pain, photophobia, tearing, throat pain, throat swelling, voice changes, others Respiratory: reports: shortness of breath; denies: cough, hemoptysis, orthopnea, SOB at rest, SOB with excertion, stridor, wheezing, others Cardiovascular: reports: chest pain; denies: dizzy spells, diaphoresis, Dyspnea on exertion, edema, irregular heart beat, left arm pain, lightheadedness, palpitations, PND, syncope, others Gastrointestinal: denies: abdomen distended, abdominal pain, blood streaked bowels, constipated, diarrhea, dysphagia, difficulty swallowing, hematemesis, melena, nausea, poor appetite, poor fluid intake, rectal bleeding, rectal pain, vomiting, others Genitourinary: denies: burning, dysuria, flank pain, frequency, hematuria, incontinence, penile discharge, penile sore, pain, testicle pain, testicle swelling, urgency, others Neurological: reports: dizziness; denies: fainting, headache, left sided numbness, left sided weakness, numbness, paresthesia, pre-existing deficit, right sided numbness, right sided weakness, seizure, speech problems, tingling, tremors, weakness, others Musculoskeletal: denies: back pain, gout, joint pain, joint swelling, muscle pain, muscle stiffness, neck pain, others Integumetry: denies: bruises, change in color, change in hair/nails, dryness, laceration, lesions, lumps, rash, wounds, others Allergic/Immunocompromised: denies: Difficulty Healing, Frequent Infections, Hives, Itching, others Hematologic/Lymphatic: denies: anemia, blood clots, easy bleeding, easy bruising, swollen glands, others Endocrine: denies: excessive hunger, excessive sweating, excessive thirst, excessive urination, flushing, intolerance to cold, intolerance to heat, unexplained weight gain, unexplained weight loss, others Psychiatric: denies: anxiety, bipolar disorder, depression, hopeless, panic disorder, schizophrenia, sleepless, suicidal, others All Other Systems: Reviewed and Negative Physical Exam General Appearance: Moderate Distress, Obese HEENT: Normal ENT Inspection, PERRL/EOMI Neck: Full Range of Motion, Non-Tender, Normal, Normal Inspection Respiratory: Chest Non-Tender, Lungs Clear, No Accessory Muscle Use, No Respiratory Distress, Normal Breath Sounds Cardiovascular: No Edema, No JVD, No Murmur, No Gallop, Normal Peripheral Pulses, Regular Rate/Rhythm, Other (Complaining of chest pain) Breast Exam: Deferred Gastrointestinal: No Organomegaly, Non Tender, No Pulsatile Mass, Normal Bowel Sounds, Soft Genitalia: Deferred Pelvic: Deferred Rectal: Deferred Extremities: No calf tenderness, Normal capillary refill, Normal inspection, Normal range of motion, Non-tender, No pedal edema 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 Was a procedure done?: No CP Differential Dx Differential Diagnosis: Anxiety / Panic Attack Differential Diagnosis: HTN Essential, HTN Accelerated Differential Diagnosis: Angina X-Ray, Labs, Meds, VS Vital Signs Date Time Temp Pulse Resp B/P (MAP) Pulse Ox O2 Delivery O2 Flow Rate FiO2 08/28/24 14:12 82 179/116 08/28/24 13:36 105 08/28/24 12:45 88 08/28/24 10:55 100 22 187/112 08/28/24 10:24 100 22 160/106 08/28/24 09:54 160/106 08/28/24 09:39 105 08/28/24 09:04 98.3 96 18 190/113 (138) 98 98.3 08/28/24 09:04 190/113 08/28/24 09:04 96 96 98 Room Air 08/28/24 08:38 98 08/28/24 08:38 98.8 100 18 192/121 (144) 97 98.8 Lab Test 08/28/24 10:10 08/28/24 09:38 08/28/24 08:40 Range/Units Urine Color Yellow Yellow Urine Clarity Clear Clear Urine pH 5.5 5.0-9.0 Urine Specific [place] 1.032 1.001-1.035 Urine Protein Trace H Negative Urine Ketones Trace Negative Urine Blood Negative Negative /uL Urine Nitrite Negative Negative Urine Bilirubin Negative Negative Urine Urobilinogen Normal Negative mg/dL Urine Leukocyte Esterase Negative Negative /uL Urine RBC 1 0 - 3 /hpf Urine Microscopic WBC 3 0-3 /HPF Urine Squamous Epithelial Cells Few <5 /hpf Urine Bacteria None seen None Seen /hpf Urine Hyaline Casts Few 0 - 2 /lpf Urine Mucus Few None Seen Urine Glucose 3+ H Normal mg/dL Troponin I High Sensitivity 8 8 </=54 ng/L White Blood Count 9.7 4.4-10.8 10^3/uL Red Blood Count 4.86 4.5-5.90 10^6/uL Hemoglobin 14.5 13.5-17.5 g/dL Hematocrit 41.3 41.0-53.0 % Mean Corpuscular Volume 85.1 80.0-100.0 fL Mean Corpuscular Hemoglobin 29.9 28.0-32.0 pg Mean Corpuscular Hemoglobin Concent 35.2 32.0-36.0 g/dL Red Cell Distribution Width 14.4 H 11.8-14.3 % Platelet Count 262 140-450 10^3/uL Mean Platelet Volume 8.8 6.9-10.8 fL Neutrophils (%) (Auto) 68.1 37.0-80.0 % Lymphocytes (%) (Auto) 18.7 10.0-50.0 % Monocytes (%) (Auto) 10.2 0.0-12.0 % Eosinophils (%) (Auto) 2.3 0.0-7.0 % Basophils (%) (Auto) 0.7 0.0-2.0 % Neutrophils # (Auto) 6.6 1.6-8.6 10 ^3/uL Lymphocytes # (Auto) 1.8 0.4-5.4 10 ^3/uL Monocytes # (Auto) 1.0 0-1.3 10 ^3/uL Eosinophils # (Auto) 0.2 0-0.8 10 ^3/uL Basophils # (Auto) 0.1 0-0.2 10 ^3/uL Nucleated Red Blood Cells 0.4 % Prothrombin Time 10.9 9.3-11.8 sec Prothrombin Time INR 1.03 0.9-1.15 Activated Partial Thromboplast Time 29.1 24.5-34.5 SEC D-Dimer, Quantitative 0.36 0.0-0.49 mg/L FEU Sodium Level 141 136-145 mmol/L Potassium Level 3.7 3.5-5.1 mmol/L Chloride Level 106 98-107 mmol/L Carbon Dioxide Level 26 20-31 mmol/L Anion Gap 9 5-15 Blood Urea Nitrogen 9 9-23 mg/dL Creatinine 0.91 0.700-1.30 mg/dL Glomerular Filtration Rate Calc 103 >90 mL/min BUN/Creatinine Ratio 9.9 L 10.0-20.0 Serum Glucose 226 #H 74-106 mg/dL Calcium Level 9.8 8.7-10.4 mg/dL Magnesium Level 1.8 1.6-2.6 mg/dL Total Bilirubin 0.6 0.2-1.0 mg/dL Aspartate Amino Transferase (AST) 27 13-40 U/L Alanine Aminotransferase (ALT) 24 7-40 U/L Alkaline Phosphatase 80 46-116 U/L Total Protein 7.3 5.7-8.2 g/dL Albumin 4.6 3.2-4.8 g/dL Thyroid Stimulating Hormone (TSH) 3.15 0.55-4.78 uIU/mL Current Medications Medications (Trade) Dose Ordered Sig/Jorge Route Start Time Stop Time Status Last Admin Clonidine HCl (Catapres Tablet) 0.2 mg ONCE ONCE PO 08/28/24 09:00 08/28/24 09:01 DC 08/28/24 09:04 Sodium Chloride 1,000 ml @ 150 mls/hr Q6H40M ONCE IV 08/28/24 10:15 08/28/24 16:54 08/28/24 10:14 Morphine Sulfate 2 mg ONCE ONCE IV 08/28/24 10:15 08/28/24 10:16 DC 08/28/24 10:24 Ondansetron HCl (Zofran) 4 mg ONCE ONCE IV 08/28/24 10:15 08/28/24 10:16 DC 08/28/24 10:24 Metoprolol Tartrate (Lopressor) 2.5 mg ONCE ONCE IV 08/28/24 13:45 08/28/24 13:46 DC 08/28/24 14:12 [place] [id number] Ph: [phone] DIAGNOSTIC IMAGING Diagnostic Imaging Report : [id number] Signed PATIENT: EULOGIO LAUGHLIN JR ACCT: [id number] UNIT: [id number] : 1975 LOC: ER ROOM / BED: / AGE / SEX: 49 / M ADM STATUS: REG ER SERVICE 1002 ORDERING PHYSICIAN: MARYANA CALIX MD PROCEDURE(s): CXR2 - CHEST TWO VIEWS ROUTINE REASON: cp ORDER NUMBER(s): [id number], ACCESSION NUMBER(s): [id number] EXAM: XY CHEST TWO VIEWS ROUTINE CLINICAL HISTORY: cp COMPARISON: XY CHEST TWO VIEWS ROUTINE on DOS: 08/21/24 TECHNIQUE: Frontal and lateral view of the chest was obtained FINDINGS: Lines and Tubes: None Lungs: No focal consolidation. Pleura: No effusion. No pneumothorax. Cardiomediastinal contours: Unremarkable Bones: No acute osseous abnormality. IMPRESSION: No acute cardiopulmonary disease. ATED BY: AMANDA GARCIA MD DICTATED DATE/TIME: 08/28/24 103 SIGNED BY: AMANDA GARCAI MD SIGNED DATE/TIME: 08/28/24 103 CC: X-Ray, Labs, Meds, VS Comment Course in the emergency department eventful patient came in complaining of severe chest pain for the past two days seen in his doctor who sent him to the ER for further care patient is also dizzy and short of breath please 49 his blood pressure is 192/121 received clonidine 0.2 nine Chest x-ray is normal EKG shows sudden normal sinus rhythm with left atrial enlargement IVCD and right bundle-branch block atrial fibrillation and old anterior infarct CBC is normal Urine shows 3+ glucose D-dimer 0.36 INR 1.03 Blood sugar 226 Magnesium 1.8 Troponin eight and eight TSH 3.17 Patient will be admitted for further care Be admitted the patient was started having left flank pain and said that he was in the hospital several times and found maybe that he has a renal mass and they wanted to do an MRI otherwise the MRI was done of the lumbar spine and he had to the 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 while admitted the patient may have the MRI of the renal special renal MRI to determine if if that is what caused the blood pressure Time of 1ST Reevaluation: 10:00 Reevaluation 1ST: Unchanged Time of 2ND Reevaluation: 11:10 Reevaluation 2ND: Unchanged Patient Education/Counseling: Diagnosis, Treatment, Prognosis Family Education/Counseling: Diagnosis, Treatment, Prognosis, No Family Present SEPSIS Sepsis Screen Date sepsis recognized/suspect: Aug 28, 2024 Time Sepsis recognized/suspect: 837 Recent Procedure: No On Antibiotic Therapy: No Respiratory Rate >20: No Heart Rate >90: Yes Temp<36 C (96.8 F) or >38.3 C: No SBP <90 or MAP <65 mmHG: No New Acute Mental Status Change: No Is the patient on CPAP, BIPAP,: No Physician Orders Electrocardigram (08/28/24 09:34) Electrocardigram (08/28/24 11:34) Heplock Iv (08/28/24 10:02) Regional Office Coordinator (08/28/24 10:02) Blood Pressure (08/28/24 10:02) Oxygen (08/28/24 10:02) Pulse Oximetry (08/28/24 10:02) Chest Two Views Routine (08/28/24 10:02) Sodium Chloride 0.9% (08/28/24 10:15) Vital Signs Date Time Temp Pulse Resp B/P (MAP) Pulse Ox O2 Delivery O2 Flow Rate FiO2 08/28/24 14:12 82 179/116 08/28/24 13:36 105 08/28/24 12:45 88 08/28/24 10:55 100 22 187/112 08/28/24 10:24 100 22 160/106 08/28/24 09:54 160/106 08/28/24 09:39 105 08/28/24 09:04 98.3 96 18 190/113 (138) 98 98.3 08/28/24 09:04 190/113 08/28/24 09:04 96 96 98 Room Air 08/28/24 08:38 98 08/28/24 08:38 98.8 100 18 192/121 (144) 97 98.8 Laboratory Tests Test 08/28/24 08:40 White Blood Count 9.7 10^3/uL (4.4-10.8) Medications Medications Dose Ordered Sig/Jorge Route Start Time Stop Time Status Last Admin Dose Admin Clonidine HCl 0.2 mg ONCE ONCE PO 08/28/24 09:00 08/28/24 09:01 DC 08/28/24 09:04 Metoprolol Tartrate 2.5 mg ONCE ONCE IV 08/28/24 13:45 08/28/24 13:46 DC 08/28/24 14:12 Morphine Sulfate 2 mg ONCE ONCE IV 08/28/24 10:15 08/28/24 10:16 DC 08/28/24 10:24 Ondansetron HCl 4 mg ONCE ONCE IV 08/28/24 10:15 08/28/24 10:16 DC 08/28/24 10:24 Sodium Chloride 1,000 ml @ 150 mls/hr Q6H40M ONCE IV 08/28/24 10:15 08/28/24 16:54 08/28/24 10:14 Departure 1 Departure Time of Disposition: 11:12 Impression: Primary Impression: Acute chest pain Additional Impressions: Uncontrolled hypertension Uncontrolled diabetes mellitus Disposition: ADMITTED INPATIENT Admit to: Tele Condition: Serious Critical Care Note Critical Care Time?: No Stability Stability form required: Yes Unstable for transfer: Telemetry monitoring (Telemetry monitoring required), Requires medication Heart Score Heart Score: Heart Score Response (Comments) Value History Moderate Suspicious 1 EKG Repolarization Disturb 1 Age 45-64 1 Risk Factors >3 or Hx ASHD 2 Troponin Normal limit 0 Total 5 I personally scribed for MARYANA CALIX MD ([email or web address]) on 08/28/24 at 09:39. Electronically submitted by Tiffany Ny [email or web address]). I personally scribed for MARYANA CALIX MD ([email or web address]) on 08/28/24 at 10:06. Electronically submitted by Tiffany Ny ([email or web address]). I personally scribed for MARYANA CALIX MD ([email or web address]) on 08/28/24 at 11:04. Electronically submitted by Tiffany Ny [email or web address]). MARYANA CALIX MD Aug 28, 2024 09:39
--- NOTE | 2024-08-28 09:42 | ECG ---
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
[2024-08-28] MEDS: SODIUM CHLORIDE 0.9% 1,000 ML IV ONE (10:14)
[2024-08-28 10:21] LABS: Hematocrit 41.3 % (41.0-53.0); Hemoglobin 14.5 g/dL (13.5-17.5); Mean Corpuscular Hemoglobin 29.9 pg (28.0-32.0); Mean Corpuscular Volume 85.1 fL (80.0-100.0); Nucleated Red Blood Cells % 0.4 %
[2024-08-28] MEDS: MORPHINE SULFATE INJ 2 MG/ml SYRG IV ONE (10:22)
[2024-08-28] MEDS: ONDANSETRON HCL 4 MG/2 ML VIAL IV ONE (10:24)
[2024-08-28 10:29] LABS: Alanine Aminotransferase 24 U/L (7-40); Albumin 4.6 g/dL (3.2-4.8); Alkaline Phosphatase 80 U/L (46-116); Anion Gap 9 (5-15); BUN/Creatinine Ratio 9.9 (10.0-20.0); Bilirubin, Total 0.6 mg/dL (0.2-1.0); Blood Urea Nitrogen 9 mg/dL (9-23); Calcium 9.8 mg/dL (8.7-10.4); Carbon Dioxide 26 mmol/L (20-31); Chloride 106 mmol/L (98-107); Magnesium 1.8 mg/dL (1.6-2.6); Potassium 3.7 mmol/L (3.5-5.1); Sodium 141 mmol/L (136-145); Total Protein 7.3 g/dL (5.7-8.2)
[2024-08-28 10:30] LABS: Glucose 226 mg/dL (74-106)
[2024-08-28 10:35] LABS: Urine Protein, UAD TRACE (Negative)
--- NOTE | 2024-08-28 10:38 | DVH ---
EXAM: XY CHEST TWO VIEWS ROUTINE CLINICAL HISTORY: cp COMPARISON: XY CHEST TWO VIEWS ROUTINE on DOS: 08/21/24 TECHNIQUE: Frontal and lateral view of the chest was obtained FINDINGS: Lines and Tubes: None Lungs: No focal consolidation. Pleura: No effusion. No pneumothorax. Cardiomediastinal contours: Unremarkable Bones: No acute osseous abnormality. IMPRESSION: No acute cardiopulmonary disease.
[2024-08-28 10:57] LABS: INR 1.03 (0.9-1.15); Partial Thromboplastin Time 29.1 SEC (24.5-34.5); Prothrombin Time 10.9 sec (9.3-11.8)
[2024-08-28] MEDS: dilTIAZem 25 MG/5 ML VIAL IV ONE (13:00)
[2024-08-28] MEDS: METOPROLOL TARTRATE 1MG/1ML-5ML VIAL IV ONE (14:12)
[2024-08-28 15:30] VITALS: PULSE 82; RESP 19; O2SAT 94
[2024-08-28] MEDS: HYDROmorphone HCL 2 MG/ML VL/or syr IV ONE ×2 (16:18→23:25)
[2024-08-28] MEDS ORDERED: ACETAMINOPHEN 325 MG TAB PO PRN (19:15)
[2024-08-28] MEDS ORDERED: ONDANSETRON HCL 4 MG/2 ML VIAL IV PRN (19:15)
[2024-08-28] MEDS ORDERED: DEXTROSE (50%) 50ML SYRG IV PRN (19:15)
[2024-08-28] MEDS ORDERED: NITROGLYCERIN 0.4 MG SL TAB SL PRN (19:15)
--- NOTE | 2024-08-28 19:26 | ECG ---
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
[2024-08-28 19:30] VITALS: PULSE 80; RESP 19; O2SAT 97
[2024-08-28] MEDS: MORPHINE SULFATE INJ 2 MG/ml SYRG IV PRN (21:12)
[2024-08-28] MEDS: hydrALAZINE HCL 20 MG/ML VL IV PRN (21:12)
[2024-08-28 21:15] VITALS: BP 195/95; PULSE 91; RESP 18; TEMP 98; O2SAT 97
[2024-08-28] MEDS: ACCU-CHEK COMFORT CURVE STRIP VI SCH (22:00)
[2024-08-28 22:50] VITALS: PULSE 91; RESP 18; O2SAT 92
[2024-08-28] MEDS: ATORVASTATIN 20 MG TAB PO SCH (22:56)
[2024-08-28] MEDS: CARVEDILOL 3.125 MG TAB PO SCH (22:56)
[2024-08-28] MEDS: PREGABALIN 25 MG CAP PO SCH (22:56)
[2024-08-28] MEDS: InsuLIN REG 1unit/0.01ml Soln (100units/ml) SC SCH (23:01)
[2024-08-28] MEDS ORDERED: HYDROmorphone HCL 2 MG/ML VL/or syr IV ONE (23:15)
[2024-08-29 00:50] VITALS: PULSE 99
[2024-08-29 01:00] VITALS: BP 155/91; PULSE 93; RESP 18; TEMP 97.9; O2SAT 95
--- NOTE | 2024-08-29 04:04 | DVHHP2 ---
History of Present Illness Reason for Visit: Chest pain History of Present Illness 49-year-old male presents for evaluation of chest pain. Patient was seen by his primary care provider yesterday for uncontrolled blood pressure. Patient states his blood pressure continues to be elevated and now he has developed left-sided chest pressure. He also continues to complain of lower abdominal pain. Denies shortness or breath, nausea or vomiting. Past Medical History Hypertension, dyslipidemia, CHF, diabetes mellitus Past Surgical History Denies Family History Noncontributory Smoke: No ALCOHOL: none Drugs: None Lives: with Family Review of Systems Review of Systems Review of systems are currently negative otherwise addressed in HPI. Allergies: Coded Allergies: No Known Drug Allergy (Verified Allergy, Unknown, 12/24/23) Exam Vital Signs Vital Signs Date Time Temp Pulse Resp B/P (MAP) Pulse Ox O2 Delivery O2 Flow Rate FiO2 08/29/24 01:00 97.9 93 18 155/91 (112) 95 97.9 08/28/24 22:50 Room Air* 0 21 Exam Gen: 49-year-old male in no apparent distress Skin: Warm, dry, normal color and texture, no rash. HEENT: Normocephalic atraumatic, mucous membranes moist and pink. Neck: Cervical and supraclavicular nodes normal without enlargement, trachea is midline, thyroid gland is normal without masses. Pulmonary: Clear to auscultation and percussion bilaterally. Cardiac: Regular rate and rhythm. No murmur Abdomen: Soft, nontender, nondistended, bowel sounds present all 4 quadrants, no guarding, no rigidity, no organomegaly. Extremities: No cyanosis, clubbing, no edema Neuro: Cranial nerves II through XII grossly intact, normal affect and speech, no focal motor deficits. Labs/Xrays ORDERING PHYSICIAN: MARYANA CALIX MD PROCEDURE(s): CXR2 - CHEST TWO VIEWS ROUTINE REASON: cp ORDER NUMBER(s): [id number], ACCESSION NUMBER(s): [id number] EXAM: XY CHEST TWO VIEWS ROUTINE CLINICAL HISTORY: COMPARISON: XY CHEST TWO VIEWS ROUTINE on DOS: 08/21/24 TECHNIQUE: Frontal and lateral view of the chest was obtained FINDINGS: Lines and Tubes: None Lungs: No focal consolidation. Pleura: No effusion. No pneumothorax. Cardiomediastinal contours: Unremarkable Bones: No acute osseous abnormality. IMPRESSION: No acute cardiopulmonary disease. Labs Test 08/28/24 22:54 08/28/24 10:10 08/28/24 09:38 08/28/24 08:40 Range/Units POC Glucose 174 H 70-106 mg/dl Urine Color Yellow Yellow Urine Clarity Clear Clear Urine pH 5.5 5.0-9.0 Urine Specific [place] 1.032 1.001-1.035 Urine Protein Trace H Negative Urine Ketones Trace Negative Urine Blood Negative Negative /uL Urine Nitrite Negative Negative Urine Bilirubin Negative Negative Urine Urobilinogen Normal Negative mg/dL Urine Leukocyte Esterase Negative Negative /uL Urine RBC 1 0 - 3 /hpf Urine Microscopic WBC 3 0-3 /HPF Urine Squamous Epithelial Cells Few <5 /hpf Urine Bacteria None seen None Seen /hpf Urine Hyaline Casts Few 0 - 2 /lpf Urine Mucus Few None Seen Urine Glucose 3+ H Normal mg/dL Troponin I High Sensitivity 8 </=54 ng/L White Blood Count 9.7 4.4-10.8 10^3/uL Red Blood Count 4.86 4.5-5.90 10^6/uL Hemoglobin 14.5 13.5-17.5 g/dL Hematocrit 41.3 41.0-53.0 % Mean Corpuscular Volume 85.1 80.0-100.0 fL Mean Corpuscular Hemoglobin 29.9 28.0-32.0 pg Mean Corpuscular Hemoglobin Concent 35.2 32.0-36.0 g/dL Red Cell Distribution Width 14.4 H 11.8-14.3 % Platelet Count 262 140-450 10^3/uL Mean Platelet Volume 8.8 6.9-10.8 fL Neutrophils (%) (Auto) 68.1 37.0-80.0 % Lymphocytes (%) (Auto) 18.7 10.0-50.0 % Monocytes (%) (Auto) 10.2 0.0-12.0 % Eosinophils (%) (Auto) 2.3 0.0-7.0 % Basophils (%) (Auto) 0.7 0.0-2.0 % Neutrophils # (Auto) 6.6 1.6-8.6 10 ^3/uL Lymphocytes # (Auto) 1.8 0.4-5.4 10 ^3/uL Monocytes # (Auto) 1.0 0-1.3 10 ^3/uL Eosinophils # (Auto) 0.2 0-0.8 10 ^3/uL Basophils # (Auto) 0.1 0-0.2 10 ^3/uL Nucleated Red Blood Cells 0.4 % Prothrombin Time 10.9 9.3-11.8 sec Prothrombin Time INR 1.03 0.9-1.15 Activated Partial Thromboplast Time 29.1 24.5-34.5 SEC D-Dimer, Quantitative 0.36 0.0-0.49 mg/L FEU Sodium Level 141 136-145 mmol/L Potassium Level 3.7 3.5-5.1 mmol/L Chloride Level 106 98-107 mmol/L Carbon Dioxide Level 26 20-31 mmol/L Anion Gap 9 5-15 Blood Urea Nitrogen 9 9-23 mg/dL Creatinine 0.91 0.700-1.30 mg/dL Glomerular Filtration Rate Calc 103 >90 mL/min BUN/Creatinine Ratio 9.9 L 10.0-20.0 Serum Glucose 226 #H 74-106 mg/dL Calcium Level 9.8 8.7-10.4 mg/dL Magnesium Level 1.8 1.6-2.6 mg/dL Total Bilirubin 0.6 0.2-1.0 mg/dL Aspartate Amino Transferase (AST) 27 13-40 U/L Alanine Aminotransferase (ALT) 24 7-40 U/L Alkaline Phosphatase 80 46-116 U/L Total Protein 7.3 5.7-8.2 g/dL Albumin 4.6 3.2-4.8 g/dL Thyroid Stimulating Hormone (TSH) 3.15 0.55-4.78 uIU/mL Assessment/Plan Assessment/Plan Assessment Chest pain rule out ACS Accelerated hypertension Intractable abdominal pain Diabetes mellitus Chronic pain syndrome Noncompliant Plan Admit the patient to telemetry to the hospitalist ACS protocol Resume home medications Pain management Continue treatment per orders. Plan discussed with: Patient My Orders Orders - LANETTE CUELLO Procedure Category Date Status Time Admit ADMIT 08/28/24 Transmitted 19:03 Oxygen By Nasal RT 08/28/24 Transmitted Cannula 19:03 Mrsa Screen YAZMIN 08/28/24 In Process 23:30 Date of Service: Aug 28, 2024 Billing Provider: LANETTE CUELLO Common Visit Codes: [id number] INP/OBS CARE (HIGH) LANETTE CUELLO Aug 29, 2024 04:04
[2024-08-29] MEDS ORDERED: FUROSEMIDE 20 MG TAB PO SCH (06:00)
[2024-08-29] MEDS ORDERED: PANTOPRAZOLE 40 MG TAB PO SCH (06:00)
[2024-08-29] MEDS ORDERED: LISINOPRIL 20 MG TAB PO SCH (10:00)
== END 2024-08-29 01:35 | disposition left against medical advice (07) | DRG 199 ==
LOC: ER 08:31 → OVERFLOW 19:02 → TELE-WESTW 21:30
PROVIDERS: ADMIT Nurse Practitioner; ATTEND Nurse Practitioner
DX: I16.0 Hypertensive urgency (principal); I50.9 Heart failure, unspecified; E11.9 Type 2 diabetes mellitus without complications; I11.0 Hypertensive heart disease with heart failure; G89.4 Chronic pain syndrome; E78.5 Hyperlipidemia, unspecified; Z53.29 Procedure and treatment not carried out because of patient's decision for other reasons; Z91.199 Patient's noncompliance with other medical treatment and regimen due to unspecified reason
CPT/HCPCS: 36415; 71046; 80053; 81001; 82962; 83735; 84443; 84484; 85025; 85379; 85610; 85730; 87081; 93005; 96361; 96374; G0378; J1815; J2405

== ENCOUNTER 2024-08-30 02:44 | Inpatient (IN) | payer MEDICAID ==
[~2024-08-30] VITALS: Ht 30.5 cm; Wt 0.0 kg
--- NOTE | 2024-08-30 03:02 | ED.PDOC ---
HPI Comments 49-year-old male with a history of hypertension, diabetes, CAD, CHF and hyperlipidemia brought in by self complaining of chest pain. Patient was admitted on 08/28/2024 with accelerated hypertension and chest pain rule out ACS , however left AMA due to a family emergency. Patient coming in again today still complaining of retrosternal chest pain described as squeezing, associated with shortness of breath and high blood pressure. Patient states he possibly had a syncopal episode around 1:00 a.m., stating he awakened with chest pain and was lying face down on his sofa. He denies any headache, dizziness, vision changes or focal weakness. He was able to drive himself here and is ambulatory. Blood pressure upon arrival was 179/117 mm Hg Chief Complaint: Chest Pain Time Seen by MD: 03:01 Primary Care Provider: ? Reviewed Notes: Nurses Notes Allergies: Coded Allergies: No Known Drug Allergy (Verified Allergy, Unknown, 12/24/23) Home Meds Active Scripts Lisinopril (Lisinopril) 40 Mg Tab, 1 TAB PO DAILY, #30 TAB 1 Refill Prov:CAROLINA OVALLE MD 08/23/24 Carvedilol (Carvedilol) 6.25 Mg Tab, 1 TAB PO BID, #60 TAB 1 Refill Prov:CAROLINA OVALLE MD 08/23/24 Metoclopramide Hcl (Metoclopramide Hcl) 10 Mg Tab, 10 MG PO BID for 4 Days, #15 TAB 0 Refills Prov:CAROLINA OVALLE MD 08/23/24 Duloxetine Hcl (Cymbalta) 20 Mg Cap, 1 CAP PO DAILY for 30 Days, #30 CAP Prov:ALE HARRIS 08/15/24 Hydrocodone-Acetaminophen (Hydrocodone Bitartrate/AC 5-325 mg) 1 Tab Tab, 1 TAB PO Q8HPRN PRN for 7 Days, #21 TAB Prov:MARY BOSCH MD 08/15/24 Sennosides-Docusate Sodium (Senokot S) 1 Tab Tab, 1 TAB PO BID for 14 Days, #30 TAB 0 Refills Prov:CAROLINA OVALLE MD 08/02/24 Polyethylene Glycol 3350 (Goodsense Clearlax) 17 Gm/Scoop Pow, 17 GM PO DAILY for 10 Days, #17.9 POW 0 Refills Prov:CAROLINA OVALLE MD 08/02/24 Sucralfate (CARAFATE SUSP) 1 Gm/10 Ml Ss, 10 ML PO BID for 30 Days, #600 ML 0 Refills Prov:CAROLINA OVALLE MD 08/02/24 Pantoprazole Sodium Sesquihydr (Protonix) 40 Mg Tab, 40 MG PO DAILY for 30 Days, #30 TAB 1 Refill Prov:CAROLINA OVALLE MD 08/02/24 Dicyclomine Hcl (BENTYL CAPSULE) 10 Mg Cp, 1 CAP PO Q6HPRN PRN, #30 CAP 0 Refills Prov:CAROLINA OVALLE MD 08/02/24 Insulin Glargine (Lantus) 100 Unit/Ml Inj, 35 UNITS SC BID@1000,2200 for 30 Days, #1 INJ Prov:CORRINE GRAHAM RESIDENT 12/28/23 Ergocalciferol (VITAMIN D 03283 UNIT) 50,000 [place], [address] UNIT PO Q7D for 30 Days, #30 CAP Prov:CORRINE GRAHAM RESIDENT 12/28/23 Reported Medications Pregabalin (Lyrica) 50 Mg Cap, 1 CAP PO BID, #60 CAP 08/15/24 Insulin Lispro (Humalog Kwikpen) 100 Unit/Ml Inj, 25 UNITS SC AC for 40 Days, #30 08/14/24 Aspirin (Aspirin Low Dose) 81 Mg Tab, 1 TAB PO DAILY for 90 Days, #90 08/14/24 Trazodone Hcl (Trazodone Hcl) 50 Mg Tab, 1 TAB PO QHSP PRN for PSYCHOPHYSIOLOGIC INSOMNIA for 30 Days, #30 08/14/24 Furosemide (Furosemide) 20 Mg Tab, 1 TAB PO BID for 90 Days, #180 08/14/24 Hydroxyzine Hcl (Hydroxyzine Hcl) 25 Mg Tab, 1 TAB PO DAILY for 30 Days, #30 08/14/24 Linaclotide Base (LINZESS) 145 Mcg Cap, 1 CAP PO DAILY for 30 Days, #30 08/14/24 Nitroglycerin (NTROSTAT SUBLINGUAL) 0.4 Mg Sl, 0.4 MG SL PRN, TAB *MAY REPEAT EVERY 5 MINUTES X 3 TOTAL IF NO RELIEF, INITIATE ANALGESIC THERAPY. NOTIFY PHYSICIAN *Do not crush. 12/25/23 Tramadol Hcl (Tramadol Hcl) 50 Mg Tab, 50 MG PO, TAB 12/25/23 Discontinued Reported Medications Omeprazole (Omeprazole Dr) 40 Mg Cap, 40 MG PO DAILY, CAP 08/23/24 Tirzepatide (Mounjaro) 5 Mg/0.5 Ml Inj, 5 MG SC QWEEKLY for 28 Days, #2 08/14/24 Carvedilol (Carvedilol) 3.125 Mg Tab, 2 TAB PO BID 08/13/24 Discontinued Scripts Gabapentin (Gabapentin) 300 Mg Cap, 1 CAP PO TID for 10 Days, #90 CAP 5 Refills Prov:ALE HARRIS RESIDENT 08/15/24 Lisinopril (Lisinopril) 20 Mg Tab, 20 MG PO DAILY for 30 Days, #30 TAB Prov:CORRINE GRAHAM RESIDENT 12/28/23 Information Source: Patient Mode of Arrival: Ambulatory Severity: Moderate Timing: Hours Duration: Intermittent Prehospital treatment: None Location: Substernal Radiation: No Radiation Quality: Squeezing Onset: With Light Exertion Cardiac Risk Factors: Hyperlipidemia, HTN, Diabetes, Other (Congestive heart failure) History of: Similar pain in past Associated Signs and Symptoms: SOB Past Medical History PAST MEDICAL HISTORY: CAD, CHF, DM, High Lipids, HTN Surgical History: Denies all surgeries Family History Family History: Reviewed,noncontributory to illness Social History Smoker: Non-Smoker Alcohol: Denies ETOH Use Drugs: Denies Drug Use Lives In: Home Constitutional: denies: chills, diaphoresis, fatigue, fever, malaise, sweats, weakness, others EENTM: denies: blurred vision, double vision, ear bleeding, ear discharge, ear drainage, ear pain, ear ringing, eye pain, eye redness, hearing loss, mouth pain, mouth swelling, nasal discharge, nose bleeding, nose congestion, nose pain, photophobia, tearing, throat pain, throat swelling, voice changes, others Respiratory: denies: cough, hemoptysis, orthopnea, SOB at rest, shortness of breath, SOB with excertion, stridor, wheezing, others Cardiovascular: reports: chest pain; denies: dizzy spells, diaphoresis, Dyspnea on exertion, edema, irregular heart beat, left arm pain, lightheadedness, palpitations, PND, syncope, others Gastrointestinal: denies: abdomen distended, abdominal pain, blood streaked bowels, constipated, diarrhea, dysphagia, difficulty swallowing, hematemesis, melena, nausea, poor appetite, poor fluid intake, rectal bleeding, rectal pain, vomiting, others Genitourinary: denies: burning, dysuria, flank pain, frequency, hematuria, incontinence, penile discharge, penile sore, pain, testicle pain, testicle swelling, urgency, others Neurological: denies: dizziness, fainting, headache, left sided numbness, left sided weakness, numbness, paresthesia, pre-existing deficit, right sided numbness, right sided weakness, seizure, speech problems, tingling, tremors, weakness, others Musculoskeletal: denies: back pain, gout, joint pain, joint swelling, muscle pain, muscle stiffness, neck pain, others Integumetry: denies: bruises, change in color, change in hair/nails, dryness, laceration, lesions, lumps, rash, wounds, others Allergic/Immunocompromised: denies: Difficulty Healing, Frequent Infections, Hives, Itching, others Hematologic/Lymphatic: denies: anemia, blood clots, easy bleeding, easy bruising, swollen glands, others Endocrine: denies: excessive hunger, excessive sweating, excessive thirst, excessive urination, flushing, intolerance to cold, intolerance to heat, unexplained weight gain, unexplained weight loss, others Psychiatric: denies: anxiety, bipolar disorder, depression, hopeless, panic disorder, schizophrenia, sleepless, suicidal, others Physical Exam General Appearance: No Apparent Distress, Obese HEENT: Other (Pupils and face symmetric. Moist mucous membranes.) Neck: Full Range of Motion, Normal Inspection Respiratory: Lungs Clear, No Accessory Muscle Use, No Respiratory Distress, Normal Breath Sounds Cardiovascular: No Edema, No JVD, Regular Rate/Rhythm Breast Exam: Deferred Gastrointestinal: Soft, Other (Non pulsatile tender prominence left mid abdominal area, ?hernia) Genitalia: Deferred Pelvic: Deferred Rectal: Deferred Extremities: Normal inspection, Normal range of motion, Non-tender, No pedal edema Neurologic: Alert (Oriented x4), Normal Affect, Normal Mood Cerebellar Function: NOT DONE Reflexes: NOT DONE Skin: Dry, Normal Color, Warm Lymphatic: NOT DONE EKG EKG : Comments Sinus tach, rate 103, normal [place] and QRS intervals, QTC 487, normal axis, possible old anteroseptal infarct, inferior and lateral ST depression Was a procedure done? Was a procedure done?: No CP Differential Dx Differential Diagnosis: Angina, Anxiety / Panic Attack, Electrolyte Disorder Differential Diagnosis: CHF, HTN Essential, HTN Accelerated Differential Diagnosis: Angina, Chest Wall Pain, Costochondritis, Esophageal reflux/spasm, Gastritis, Myocardial Infarction X-Ray, Labs, Meds, VS Vital Signs Date Time Temp Pulse Resp B/P (MAP) Pulse Ox O2 Delivery O2 Flow Rate FiO2 08/30/24 06:00 83 16 144/91 (108) 95 08/30/24 05:21 93 20 94 Room Air* 0 21 08/30/24 05:13 94 08/30/24 05:12 170/113 08/30/24 05:05 98.1 93 20 170/113 (132) 93 98.1 08/30/24 04:40 92 20 194/133 08/30/24 04:30 194/133 08/30/24 04:11 68 20 188/136 08/30/24 03:30 185/116 08/30/24 03:25 98.0 110 16 185/116 (139) 98 98.0 08/30/24 03:01 99.8 110 20 179/117 (137) 97 99.8 08/30/24 02:51 103 Lab Test 08/30/24 05:45 08/30/24 03:40 08/30/24 02:50 Range/Units Troponin I High Sensitivity 7 8 7 </=54 ng/L White Blood Count 9.8 4.4-10.8 10^3/uL Red Blood Count 4.79 4.5-5.90 10^6/uL Hemoglobin 14.7 13.5-17.5 g/dL Hematocrit 40.9 L 41.0-53.0 % Mean Corpuscular Volume 85.4 80.0-100.0 fL Mean Corpuscular Hemoglobin 30.6 28.0-32.0 pg Mean Corpuscular Hemoglobin Concent 35.9 32.0-36.0 g/dL Red Cell Distribution Width 14.4 H 11.8-14.3 % Platelet Count 275 140-450 10^3/uL Mean Platelet Volume 8.5 6.9-10.8 fL Neutrophils (%) (Auto) 66.0 37.0-80.0 % Lymphocytes (%) (Auto) 20.7 10.0-50.0 % Monocytes (%) (Auto) 10.5 0.0-12.0 % Eosinophils (%) (Auto) 2.2 0.0-7.0 % Basophils (%) (Auto) 0.6 0.0-2.0 % Neutrophils # (Auto) 6.5 1.6-8.6 10 ^3/uL Lymphocytes # (Auto) 2.0 0.4-5.4 10 ^3/uL Monocytes # (Auto) 1.0 0-1.3 10 ^3/uL Eosinophils # (Auto) 0.2 0-0.8 10 ^3/uL Basophils # (Auto) 0.1 0-0.2 10 ^3/uL Nucleated Red Blood Cells 0.2 % Sodium Level 143 136-145 mmol/L Potassium Level 4.4 3.5-5.1 mmol/L Chloride Level 106 98-107 mmol/L Carbon Dioxide Level 30 20-31 mmol/L Anion Gap 7 5-15 Blood Urea Nitrogen 11 9-23 mg/dL Creatinine 0.83 0.700-1.30 mg/dL Glomerular Filtration Rate Calc 107 >90 mL/min BUN/Creatinine Ratio 13.3 10.0-20.0 Serum Glucose 164 H 74-106 mg/dL Calcium Level 9.5 8.7-10.4 mg/dL B-Type Natriuretic Peptide 132.40 0-100 pg/mL Current Medications Medications (Trade) Dose Ordered Sig/Jorge Route Start Time Stop Time Status Last Admin Aspirin 325 mg ONCE ONCE PO 08/30/24 03:00 08/30/24 03:03 DC 08/30/24 03:29 Nitroglycerin (Nitro-Bid) 1 pkg ONCE ONCE TD 08/30/24 03:00 08/30/24 03:03 DC 08/30/24 03:30 Hydromorphone HCl (Dilaudid Injection) 1 mg ONCE ONCE IV 08/30/24 03:45 08/30/24 03:46 DC 08/30/24 04:11 Ondansetron HCl (Zofran) 4 mg ONCE ONCE IV 08/30/24 03:45 08/30/24 03:46 DC 08/30/24 04:10 Hydralazine HCl (Apresoline Injection) 10 mg ONCE ONCE IV 08/30/24 05:00 08/30/24 05:01 DC 08/30/24 05:12 X-Ray, Labs, Meds, VS Comment 49-year-old male with a history of CAD, CHF, hypertension, diabetes, and dyslipidemia complaining of chest pain Vitals remarkable for heart rate 103, BP 179/117 Exam remarkable for tachycardia Rhythm strip independently interpreted by me: Sinus tach, rate 103, no ectopy. Chest x-ray independently interpreted by me: Cardiomegaly with pulmonary vascular prominence. No definite infiltrate or effusion. Normal mediastinal width. Grossly normal bony thorax. No free air, no pneumothorax. CBC, basic metabolic panel and 2 serial troponins unremarkable. BNP 132.4 Patient treated with the following in the ED: Aspirin 325 mg p.o., nitro bid 1/2 inch to chest wall, Dilaudid 1 mg IV, Zofran 4 mg IV, hydralazine 10 mg IV On re-evaluation after Nitro-Bid and Dilaudid, patient's blood pressure is still in the high 170s over low 100s. IV hydralazine was ordered. Plan is to readmit the patient for Cardiology evaluation and for blood pressure control. Time of 1ST Reevaluation: 03:01 Reevaluation 1ST: Unchanged Patient Education/Counseling: Diagnosis, Treatment Family Education/Counseling: No Family Present SEPSIS Sepsis Screen Physician Orders Electrocardigram (08/30/24 02:46) Chest Portable (08/30/24 02:59) Vital Signs Date Time Temp Pulse Resp B/P (MAP) Pulse Ox O2 Delivery O2 Flow Rate FiO2 08/30/24 06:00 83 16 144/91 (108) 95 08/30/24 05:21 93 20 94 Room Air* 0 21 08/30/24 05:13 94 08/30/24 05:12 170/113 08/30/24 05:05 98.1 93 20 170/113 (132) 93 98.1 08/30/24 04:40 92 20 194/133 08/30/24 04:30 194/133 08/30/24 04:11 68 20 188/136 08/30/24 03:30 185/116 08/30/24 03:25 98.0 110 16 185/116 (139) 98 98.0 08/30/24 03:01 99.8 110 20 179/117 (137) 97 99.8 08/30/24 02:51 103 Laboratory Tests Test 08/30/24 02:50 White Blood Count 9.8 10^3/uL (4.4-10.8) Medications Medications Dose Ordered Sig/Jorge Route Start Time Stop Time Status Last Admin Dose Admin Aspirin 325 mg ONCE ONCE PO 08/30/24 03:00 08/30/24 03:03 DC 08/30/24 03:29 Hydralazine HCl 10 mg ONCE ONCE IV 08/30/24 05:00 08/30/24 05:01 DC 08/30/24 05:12 Hydromorphone HCl 1 mg ONCE ONCE IV 08/30/24 03:45 08/30/24 03:46 DC 08/30/24 04:11 Nitroglycerin 1 pkg ONCE ONCE TD 08/30/24 03:00 08/30/24 03:03 DC 08/30/24 03:30 Ondansetron HCl 4 mg ONCE ONCE IV 08/30/24 03:45 08/30/24 03:46 DC 08/30/24 04:10 Departure 1 Departure Time of Disposition: 04:47 Impression: Primary Impression: Chest pain with high risk for cardiac etiology Additional Impression: Malignant hypertensive urgency Disposition: 09 ADMITTED INPATIENT Admit to: [facility] Condition: Guarded Critical Care Note Critical Care Time?: Yes (35 min-critical care time only) Critical care comment: Critical care time including multiple bedside re-evaluations, review of lab and imaging studies, and discussion of the case with the admitting provider. Patient is high risk for hemodynamic decompensation. Stability Stability form required: No Heart Score Heart Score: Heart Score Response (Comments) Value History Highly Suspicious [address]-Deviation 2 Age 45-64 1 Risk Factors >3 or Hx ASHD 2 Troponin Normal limit 0 Total 7 I personally scribed for FATOUMATA TURPIN MD (DVAUJOSE ROBERTO) on 08/30/24 at 03:02. Electronically submitted by Solis Stephens ([email or web address]). I personally scribed for FATOUMATA TURPIN MD (DVAUJOSE ROBERTO) on 08/30/24 at 03:27. Electronically submitted by Solis Stephens ([email or web address]). FATOUMATA TURPIN MD Aug 30, 2024 03:02
[2024-08-30 03:18] LABS: Hematocrit 40.9 % (41.0-53.0); Hemoglobin 14.7 g/dL (13.5-17.5); Mean Corpuscular Hemoglobin 30.6 pg (28.0-32.0); Mean Corpuscular Volume 85.4 fL (80.0-100.0); Nucleated Red Blood Cells % 0.2 %
[2024-08-30] MEDS: NITROGLYCERIN 2% OINT 1GM PKG TD ONE (03:30)
[2024-08-30 03:38] LABS: Chloride 106 mmol/L (98-107); Potassium 4.4 mmol/L (3.5-5.1); Sodium 143 mmol/L (136-145)
[2024-08-30 03:39] LABS: Anion Gap 7 (5-15); Calcium 9.5 mg/dL (8.7-10.4); Carbon Dioxide 30 mmol/L (20-31)
[2024-08-30 03:44] LABS: BUN/Creatinine Ratio 13.3 (10.0-20.0); Blood Urea Nitrogen 11 mg/dL (9-23)
[2024-08-30 04:05] LABS: Glucose 164 mg/dL (74-106)
[2024-08-30] MEDS: ONDANSETRON HCL 4 MG/2 ML VIAL IV ONE (04:10)
[2024-08-30] MEDS: HYDROmorphone HCL 2 MG/ML VL/or syr IV ONE (04:11)
--- NOTE | 2024-08-30 04:55 | DVH ---
CHEST RADIOGRAPH Indication: cp Technique: Single frontal view of the chest was obtained Comparison: XY CHEST PORTABLE on DOS: 08/13/24, XY CHEST PORTABLE on DOS: 08/02/24, XY CHEST XRAY 1 VIEW on DOS: 12/25/23 FINDINGS: Lines and Tubes: None Lungs: No focal consolidation. Pleura: No effusion. No pneumothorax. Cardiomediastinal contours: Unremarkable Bones: No acute osseous abnormality. IMPRESSION: No acute cardiopulmonary disease.
[2024-08-30] MEDS: hydrALAZINE HCL 20 MG/ML VL IV ONE (05:12)
[2024-08-30 05:21] VITALS: PULSE 93; RESP 20; O2SAT 94
[2024-08-30 08:00] VITALS: BP 173/110; PULSE 100; RESP 14; TEMP 98.4; O2SAT 97
[2024-08-30] MEDS ORDERED: ONDANSETRON HCL 4 MG/2 ML VIAL IV PRN (08:30)
[2024-08-30] MEDS ORDERED: MORPHINE SULFATE INJ 2 MG/ml SYRG IV PRN ×2 (08:30)
[2024-08-30] MEDS ORDERED: DOCUSATE SOD 100 MG CAP PO PRN (08:30)
[2024-08-30] MEDS ORDERED: NITROGLYCERIN 0.4 MG SL TAB SL PRN (08:30)
[2024-08-30] MEDS ORDERED: HYDROcodone-ACET 5/325MG TAB PO PRN (08:30)
[2024-08-30] MEDS ORDERED: ACETAMINOPHEN 325 MG TAB PO PRN (08:30)
--- NOTE | 2024-08-30 08:55 | DVHHP2 ---
History of Present Illness Reason for Visit: Chest pain History of Present Illness Otis Krishna Jr is a 49-year-old male with past medical history of CHF, hypertension, hyperlipidemia, and diabetes, who comes to the hospital with complaints of chest pain and abdominal pain. Patient's blood pressure is uncontrolled. Patient is seen here frequently in the last couple of months for similar complaints and problems with his blood pressure. He has had multiple scans an ECHO, EGD, and colonoscopy completed. Patient is requesting Dilaudid pain medication, refusing the morphine, stating it will increase his blood pressure. Will admit and consult cardiology for further evaluation. Cardiovascular: CHF, HTN, hyperipidemia Endocrine: Diabetes Smoke: No ALCOHOL: none Drugs: None Lives: with Family Domestic Violence: Neg Review of Systems Constitutional: No: Fever, Chills, Sweats, Weakness, Malaise, Other Eyes: No: Pain, Vision change, Conjunctivae inflammation, Eyelid inflammation, Other, Redness ENT: No: Ear pain, Ear discharge, Nose pain, Nose discharge, Nose congestion, Mouth pain, Mouth swelling, Throat pain, Throat swelling, Other Respiratory: No: Cough, Dry, Shortness of breath, SOB with excertion, Wheezing, Hemoptysis, Pleuritic Pain, Sputum, Wheezing, Other Cardiovascular: Chest Pain; No: Palpitations, Orthopnea, Paroxysmal Noc. Dyspnea, Edema, Lt Headedness, Other Gastrointestinal: Abdominal Pain; No: Nausea, Vomiting, Diarrhea, Constipation, Melena, Hematochezia, Other Genitourinary: No Dysuria, No Frequency, No Incontinence, No Hematuria, No Retention, No Other Musculoskeletal: No: other, neck pain, shoulder pain, arm pain, back pain, hand pain, leg pain, foot pain Skin: No: Rash, Lesions, Jaundice, Bruising, Other Neurological: No: Weakness, Numbness, Incoordination, Change in speech, Confusion, Seizures, Other Allergies: Coded Allergies: No Known Drug Allergy (Verified Allergy, Unknown, 12/24/23) Exam Vital Signs Vital Signs Date Time Temp Pulse Resp B/P (MAP) Pulse Ox O2 Delivery O2 Flow Rate FiO2 08/30/24 08:00 98.4 100 14 173/110 (131) 97 98.4 08/30/24 08:00 Room Air* 0 21 General Appearance: Alert, Oriented X3, Cooperative, mild distress HEENT: Atraumatic, PERRLA Respiratory: Clear to auscultation, Normal air movement Cardiovascular: Regular rate, Normal S1 Abdominal: Normal bowel sounds, Soft, No tenderness, No hepatospenomegaly Extremities: No clubbing, No cyanosis, No edema, Normal pulses Skin: No rashes, No breakdown, No significant lesion Neuro: Normal gait, Normal speech, Strength at 5/5 X4 ext, Normal tone Psych/Mental Status: Mental status NL, Mood NL Labs/Xrays Labs Test 08/30/24 05:45 08/30/24 02:50 Range/Units Troponin I High Sensitivity 7 </=54 ng/L White Blood Count 9.8 4.4-10.8 10^3/uL Red Blood Count 4.79 4.5-5.90 10^6/uL Hemoglobin 14.7 13.5-17.5 g/dL Hematocrit 40.9 L 41.0-53.0 % Mean Corpuscular Volume 85.4 80.0-100.0 fL Mean Corpuscular Hemoglobin 30.6 28.0-32.0 pg Mean Corpuscular Hemoglobin Concent 35.9 32.0-36.0 g/dL Red Cell Distribution Width 14.4 H 11.8-14.3 % Platelet Count 275 140-450 10^3/uL Mean Platelet Volume 8.5 6.9-10.8 fL Neutrophils (%) (Auto) 66.0 37.0-80.0 % Lymphocytes (%) (Auto) 20.7 10.0-50.0 % Monocytes (%) (Auto) 10.5 0.0-12.0 % Eosinophils (%) (Auto) 2.2 0.0-7.0 % Basophils (%) (Auto) 0.6 0.0-2.0 % Neutrophils # (Auto) 6.5 1.6-8.6 10 ^3/uL Lymphocytes # (Auto) 2.0 0.4-5.4 10 ^3/uL Monocytes # (Auto) 1.0 0-1.3 10 ^3/uL Eosinophils # (Auto) 0.2 0-0.8 10 ^3/uL Basophils # (Auto) 0.1 0-0.2 10 ^3/uL Nucleated Red Blood Cells 0.2 % Sodium Level 143 136-145 mmol/L Potassium Level 4.4 3.5-5.1 mmol/L Chloride Level 106 98-107 mmol/L Carbon Dioxide Level 30 20-31 mmol/L Anion Gap 7 5-15 Blood Urea Nitrogen 11 9-23 mg/dL Creatinine 0.83 0.700-1.30 mg/dL Glomerular Filtration Rate Calc 107 >90 mL/min BUN/Creatinine Ratio 13.3 10.0-20.0 Serum Glucose 164 H 74-106 mg/dL Calcium Level 9.5 8.7-10.4 mg/dL B-Type Natriuretic Peptide 132.40 0-100 pg/mL CHEST RADIOGRAPH FINDINGS: Lines and Tubes: None Lungs: No focal consolidation. Pleura: No effusion. No pneumothorax. Cardiomediastinal contours: Unremarkable Bones: No acute osseous abnormality. IMPRESSION: No acute cardiopulmonary disease. Assessment/Plan Assessment/Plan Assessment: Uncontrolled hypertension, Chest pain with high risk for cardiac etiology, Uncontrolled diabetes, CHF, Plan: Admit to Tele, Cardiology consult, Antihypertensives, PRN antihypertensives, Pain management, Accu checks Q AC&HS with sliding scale, Home medications reconciled, Plan discussed with: Patient My Orders Orders - ELIZABETH WHITE Procedure Category Date Status Time Admit ADMIT 08/30/24 Transmitted 08:16 Code Status CODE 08/30/24 Transmitted 08:16 Sodium Chloride Lock PHA 08/30/24 Transmitted (Saline Lock Ns) 14:00 Hydrocodone-Acet PHA 08/30/24 Transmitted 5/325mg Tab ([place] 08:30 Ondansetron Hcl PHA 08/30/24 Transmitted (Zofran) 08:30 Docusate Sodium PHA 08/30/24 Transmitted Capsule (Colace 08:30 Complete Blood Count LAB 08/31/24 Verified 04:00 Comprehensive LAB 08/31/24 Verified Metabolic Panel 04:00 Cardiac DIET 08/30/24 Transmitted Diet-2gna,Lofat,Lochol Breakfast Condition: Serious JASWANT 08/30/24 Transmitted 08:16 Acetaminophen Tablet PHA 08/30/24 Transmitted (Tylenol Tablet) 08:30 Morphine Sulfate PHA 08/30/24 Transmitted Injection 08:30 Nitroglycerin PHA 08/30/24 Transmitted Sublingual (Ntrostat 08:30 Morphine Sulfate PHA 08/30/24 Transmitted Injection 08:30 Stat Ekg For Chest JASWANT 08/30/24 Transmitted Pain 08:16 Notify Md Of Changes JASWANT 08/30/24 Transmitted From Base 08:16 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[employer] For [facility] 08/30/24 Transmitted 24 Hours 08:16 Emergency Dysrhythmia [facility] 08/30/24 Transmitted Protocol 08:16 Rhythm Strips Once [facility] 08/30/24 Transmitted Every Shift 08:16 Oxygen By Nasal 08/30/24 Transmitted Cannula 08:16 Aspirin Enteric [facility] 08/30/24 Transmitted Coated Tablet 10:00 (Nf) Carvedilol [facility] 08/30/24 Transmitted 10:00 (Nf) Duloxetine Hcl [facility] 08/30/24 Transmitted (Cymbalta) 10:00 (Nf) Lisinopril [facility] 08/30/24 Transmitted 10:00 Date of Service: Aug 30, 2024 Billing Provider: ELIZABETH WHITE Common Visit Codes: [id number] INP/OBS CARE (MOD) ELIZABETH WHITE Aug 30, 2024 08:55
[2024-08-30] MEDS ORDERED: DEXTROSE (50%) 50ML SYRG IV PRN (09:00)
[2024-08-30] MEDS ORDERED: FUROSEMIDE 20 MG TAB PO SCH (09:04)
[2024-08-30] MEDS ORDERED: hydrALAZINE HCL 20 MG/ML VL IV PRN (10:00)
[2024-08-30] MEDS ORDERED: ASPirin-EC 81 mg tab PO SCH (10:00)
[2024-08-30] MEDS ORDERED: INSULIN LANTUS (GLARGINE) 1 /0.01ml (100units/ml) SC SCH (10:00)
[2024-08-30] MEDS ORDERED: Duloxetine Hcl (Cymbalta) 20MG CAPSULE PO SCH (10:00)
[2024-08-30] MEDS ORDERED: CARVEDILOL 3.125 MG TAB PO SCH (10:00)
[2024-08-30] MEDS ORDERED: LISINOPRIL 20 MG TAB PO SCH (10:00)
[2024-08-30] MEDS ORDERED: ACCU-CHEK COMFORT CURVE STRIP VI SCH (11:30)
[2024-08-30] MEDS ORDERED: InsuLIN REG 1unit/0.01ml Soln (100units/ml) SC SCH ×2 (11:30→22:00)
--- NOTE | 2024-08-30 13:24 | DVHDS2 ---
Discharge Summary Date of Admission Aug 30, 2024 at 08:16 Date of Discharge: Aug 30, 2024 Labs/Diagnostic Data: Laboratory Results Test 08/30/24 05:45 08/30/24 02:50 Troponin I High Sensitivity 7 ng/L (</=54) White Blood Count 9.8 10^3/uL (4.4-10.8) Red Blood Count 4.79 10^6/uL (4.5-5.90) Hemoglobin 14.7 g/dL (13.5-17.5) Hematocrit 40.9 % (41.0-53.0) Mean Corpuscular Volume 85.4 fL (80.0-100.0) Mean Corpuscular Hemoglobin 30.6 pg (28.0-32.0) Mean Corpuscular Hemoglobin Concent 35.9 g/dL (32.0-36.0) Red Cell Distribution Width 14.4 % (11.8-14.3) Platelet Count 275 10^3/uL (140-450) Mean Platelet Volume 8.5 fL (6.9-10.8) Neutrophils (%) (Auto) 66.0 % (37.0-80.0) Lymphocytes (%) (Auto) 20.7 % (10.0-50.0) Monocytes (%) (Auto) 10.5 % (0.0-12.0) Eosinophils (%) (Auto) 2.2 % (0.0-7.0) Basophils (%) (Auto) 0.6 % (0.0-2.0) Neutrophils # (Auto) 6.5 10 ^3/uL (1.6-8.6) Lymphocytes # (Auto) 2.0 10 ^3/uL (0.4-5.4) Monocytes # (Auto) 1.0 10 ^3/uL (0-1.3) Eosinophils # (Auto) 0.2 10 ^3/uL (0-0.8) Basophils # (Auto) 0.1 10 ^3/uL (0-0.2) Nucleated Red Blood Cells 0.2 % Sodium Level 143 mmol/L (136-145) Potassium Level 4.4 mmol/L (3.5-5.1) Chloride Level 106 mmol/L (98-107) Carbon Dioxide Level 30 mmol/L (20-31) Anion Gap 7 (5-15) Blood Urea Nitrogen 11 mg/dL (9-23) Creatinine 0.83 mg/dL (0.700-1.30) Glomerular Filtration Rate Calc 107 mL/min (>90) BUN/Creatinine Ratio 13.3 (10.0-20.0) Serum Glucose 164 mg/dL (74-106) Calcium Level 9.5 mg/dL (8.7-10.4) B-Type Natriuretic Peptide 132.40 pg/mL (0-100) Other Laboratory Tests 08/30/24 02:50 Brief Hx & Hospital Course: This is a 49-year-old male with a known history of congestive heart failure hypertension who initially presented to the hospital with chest pain abdominal pain. Patient has had multiple workup in the past. Patient found to have hypertensive urgency. Patient left against medical advice before completion of workup and treatment. Condition at Discharge: Undetermined Final Diagnosis/Problems List 1. Chest pain rule out MS 2. Hypertensive urgency 3. Diabetes mellitus type 2 4. Hypertension Discharge Disposition: AMA SNF Discharge Will this Physician continue t: No Discharge Instruct/Medications Scheduled Aspirin (Aspirin Low Dose), 1 TAB PO DAILY, (Reported) Carvedilol (Carvedilol), 1 TAB PO BID Duloxetine Hcl (Cymbalta), 1 CAP PO DAILY Ergocalciferol (Vitamin D 81864 Unit), 50,000 UNIT PO Q7D Furosemide (Furosemide), 1 TAB PO BID, (Reported) Hydroxyzine Hcl (Hydroxyzine Hcl), 1 TAB PO DAILY, (Reported) Insulin Glargine (Lantus), 35 UNITS SC BID@1000,2200 Insulin Lispro (Humalog Kwikpen), 25 UNITS SC AC, (Reported) Linaclotide Base (Linzess), 1 CAP PO DAILY, (Reported) Lisinopril (Lisinopril), 1 TAB PO DAILY Nitroglycerin (Ntrostat Sublingual), 0.4 MG SL PRN, (Reported) Pantoprazole Sodium Sesquihydr (Protonix), 40 MG PO DAILY Pregabalin (Lyrica), 1 CAP PO BID, (Reported) Scheduled PRN Trazodone Hcl (Trazodone Hcl), 1 TAB PO QHSP PRN for PSYCHOPHYSIOLOGIC INSOMNIA, (Reported) Miscellaneous Medications Tramadol Hcl (Tramadol Hcl), 50 MG PO, (Reported) Discontinued Medications Carvedilol (Carvedilol), 2 TAB PO BID, (Reported) Dicyclomine Hcl (Bentyl Capsule), 1 CAP PO Q6HPRN PRN Gabapentin (Gabapentin), 1 CAP PO TID Hydrocodone-Acetaminophen (Hydrocodone Bitartrate/AC 5-325 mg), 1 TAB PO Q8HPRN PRN Lisinopril (Lisinopril), 20 MG PO DAILY Metoclopramide Hcl (Metoclopramide Hcl), 10 MG PO BID Omeprazole (Omeprazole Dr), 40 MG PO DAILY, (Reported) Polyethylene Glycol 3350 (Goodsense Clearlax), 17 GM PO DAILY Sennosides-Docusate Sodium (Senokot S), 1 TAB PO BID Sucralfate (Carafate Susp), 10 ML PO BID Tirzepatide (Mounjaro), 5 MG SC QWEEKLY, (Reported) Discharge Statement: "Patient was advised to return to the ER or call 911 if any headaches, dizziness, shortness of breath, chest pain, abdominal pain, bleeding, fevers, or worsening of medical condition. Patient was counseled about treatment plan, medications, possible side effects, patientverbalized understanding. All questions were answered to the best of my ability. This discharge took greater then 30 minutes in planning, reviewing documentation, counseling the patient, and discussing with other team members." ASSESSMENT ASSESSMENT Assessment Date of Service: Aug 30, 2024 Billing Provider: GENIE MELENDEZ MD Common Visit Codes: 10894-TXG/OBS DISCH DAY <30MIN, 31159-AKG/OBS DISCH DAY >30min GENIE MELENDEZ MD Aug 30, 2024 13:24
[2024-08-30] MEDS ORDERED: SODIUM CHLOR 0.9% PF (SALINE LOCK) 10ML VIAL/SYR IV SCH (14:00)
--- NOTE | 2024-09-02 11:45 | ECG ---
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
== END 2024-08-30 09:40 | disposition left against medical advice (07) | DRG 199 ==
LOC: ER 02:44 → OVERFLOW 08:16
PROVIDERS: ADMIT Nurse Practitioner Family; ATTEND Nurse Practitioner Family
DX: I16.0 Hypertensive urgency (principal); I50.9 Heart failure, unspecified; E11.65 Type 2 diabetes mellitus with hyperglycemia; I11.0 Hypertensive heart disease with heart failure; E78.5 Hyperlipidemia, unspecified; I25.10 Atherosclerotic heart disease of native coronary artery without angina pectoris; Z53.29 Procedure and treatment not carried out because of patient's decision for other reasons; Z79.899 Other long term (current) drug therapy; Z79.82 Long term (current) use of aspirin; Z79.4 Long term (current) use of insulin
CPT/HCPCS: 36415; 71045; 80048; 83880; 84484; 85025; 93005; 96374; 96375; 99291; G0378; J2405

== ENCOUNTER 2024-09-01 14:25 | Inpatient (IN) | payer MEDICAID ==
[~2024-09-01] VITALS: Ht 170.2 cm; Wt 95.0 kg
[2024-09-01] VITALS (20 sets, daily range): BP systolic 132–159; BP diastolic 74–107; PULSE 103–114; RESP 10–22; TEMP 98.3; O2SAT 93–97
[~2024-09-01 14:25] MED LIST changes: -DICY10CA PO; -HYDR-4902 PO; -METO10TA3 PO; -POLYPOW59 PO; -SENN-62 PO; -SUCR1SUS26 PO
--- NOTE | 2024-09-01 14:38 | ECG ---
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
--- NOTE | 2024-09-01 14:49 | ED.PDOC ---
History of Present Illness HPI Comments 49-year-old male presents to the ER with a prior medical history of hypertension, diabetes, CAD, CHF, high lipids in the chief complaint of chest pain. Patient reports on having squeezing like chest pain and had a syncopal episode 1 hour ago. Patient currently is in triage and has a blood pressure of 206/136 as well as feeling dizzy, nauseous, and having headache. Denies chills, fever, N/V/D, SOB. No other associated symptoms, modifiers, recent injuries or sick contacts present at this time. Chief Complaint: Chest Pain Time Seen by MD: 14:30 Primary Care Provider: ? Reviewed Notes: Nurses Notes, Medications, Allergies Allergies: Coded Allergies: No Known Drug Allergy (Verified Allergy, Unknown, 12/24/23) Home Meds Active Scripts Lisinopril (Lisinopril) 40 Mg Tab, 1 TAB PO DAILY, #30 TAB 1 Refill Prov:CAROLINA OVALLE MD 08/23/24 Carvedilol (Carvedilol) 6.25 Mg Tab, 1 TAB PO BID, #60 TAB 1 Refill Prov:CAROLINA OVALLE MD 08/23/24 Duloxetine Hcl (Cymbalta) 20 Mg Cap, 1 CAP PO DAILY for 30 Days, #30 CAP Prov:ALE HARRIS 08/15/24 Pantoprazole Sodium Sesquihydr (Protonix) 40 Mg Tab, 40 MG PO DAILY for 30 Days, #30 TAB 1 Refill Prov:CAROLINA OVALLE MD 08/02/24 Insulin Glargine (Lantus) 100 Unit/Ml Inj, 35 UNITS SC BID@1000,2200 for 30 Days, #1 INJ Prov:CORRINE GRAHAM RESIDENT 12/28/23 Ergocalciferol (VITAMIN D 21916 UNIT) 50,000 [place], [address] UNIT PO Q7D for 30 Days, #30 CAP Prov:CORRINE GRAHAM RESIDENT 12/28/23 Reported Medications Pregabalin (Lyrica) 50 Mg Cap, 1 CAP PO BID, #60 CAP 08/15/24 Insulin Lispro (Humalog Kwikpen) 100 Unit/Ml Inj, 25 UNITS SC AC for 40 Days, #30 08/14/24 Aspirin (Aspirin Low Dose) 81 Mg Tab, 1 TAB PO DAILY for 90 Days, #90 08/14/24 Trazodone Hcl (Trazodone Hcl) 50 Mg Tab, 1 TAB PO QHSP PRN for PSYCHOPHYSIOLOGIC INSOMNIA for 30 Days, #30 08/14/24 Furosemide (Furosemide) 20 Mg Tab, 1 TAB PO BID for 90 Days, #180 08/14/24 Hydroxyzine Hcl (Hydroxyzine Hcl) 25 Mg Tab, 1 TAB PO DAILY for 30 Days, #30 08/14/24 Linaclotide Base (LINZESS) 145 Mcg Cap, 1 CAP PO DAILY for 30 Days, #30 08/14/24 Nitroglycerin (NTROSTAT SUBLINGUAL) 0.4 Mg Sl, 0.4 MG SL PRN, TAB *MAY REPEAT EVERY 5 MINUTES X 3 TOTAL IF NO RELIEF, INITIATE ANALGESIC THERAPY. NOTIFY PHYSICIAN *Do not crush. 12/25/23 Tramadol Hcl (Tramadol Hcl) 50 Mg Tab, 50 MG PO, TAB 12/25/23 Discontinued Scripts Metoclopramide Hcl (Metoclopramide Hcl) 10 Mg Tab, 10 MG PO BID for 4 Days, #15 TAB 0 Refills Prov:CAROLINA OVALLE MD 08/23/24 Hydrocodone-Acetaminophen (Hydrocodone Bitartrate/AC 5-325 mg) 1 Tab Tab, 1 TAB PO Q8HPRN PRN for 7 Days, #21 TAB Prov:MARY BOSCH MD 08/15/24 Sennosides-Docusate Sodium (Senokot S) 1 Tab Tab, 1 TAB PO BID for 14 Days, #30 TAB 0 Refills Prov:CAROLINA OVALLE MD 08/02/24 Polyethylene Glycol 3350 (Goodsense Clearlax) 17 Gm/Scoop Pow, 17 GM PO DAILY for 10 Days, #17.9 POW 0 Refills Prov:CAROLINA OVALLE MD 08/02/24 Sucralfate (CARAFATE SUSP) 1 Gm/10 Ml Ss, 10 ML PO BID for 30 Days, #600 ML 0 Refills Prov:CAROLINA OVALLE MD 08/02/24 Dicyclomine Hcl (BENTYL CAPSULE) 10 Mg Cp, 1 CAP PO Q6HPRN PRN, #30 CAP 0 Refills Prov:CAROLINA OVALLE MD 08/02/24 Information Source: Patient Mode of Arrival: Ambulatory Severity: Moderate Timing: Minutes Duration: Since onset, Minutes Prehospital treatment: None Past Medical History PAST MEDICAL HISTORY: CAD, CHF, DM, High Lipids, HTN Surgical History: Denies all surgeries Family History Family History: Reviewed,noncontributory to illness Social History Smoker: Non-Smoker Alcohol: Denies ETOH Use Drugs: Denies Drug Use Lives In: Home Constitutional: denies: chills, diaphoresis, fatigue, fever, malaise, sweats, weakness, others EENTM: denies: blurred vision, double vision, ear bleeding, ear discharge, ear drainage, ear pain, ear ringing, eye pain, eye redness, hearing loss, mouth pain, mouth swelling, nasal discharge, nose bleeding, nose congestion, nose pain, photophobia, tearing, throat pain, throat swelling, voice changes, others Respiratory: denies: cough, hemoptysis, orthopnea, SOB at rest, shortness of breath, SOB with excertion, stridor, wheezing, others Cardiovascular: reports: chest pain, syncope; denies: dizzy spells, diaphoresis, Dyspnea on exertion, edema, irregular heart beat, left arm pain, lightheadedness, palpitations, PND, others Gastrointestinal: reports: nausea; denies: abdomen distended, abdominal pain, blood streaked bowels, constipated, diarrhea, dysphagia, difficulty swallowing, hematemesis, melena, poor appetite, poor fluid intake, rectal bleeding, rectal pain, vomiting, others Genitourinary: denies: burning, dysuria, flank pain, frequency, hematuria, incontinence, penile discharge, penile sore, pain, testicle pain, testicle swelling, urgency, others Neurological: reports: dizziness, headache; denies: fainting, left sided numbness, left sided weakness, numbness, paresthesia, pre-existing deficit, right sided numbness, right sided weakness, seizure, speech problems, tingling, tremors, weakness, others Musculoskeletal: denies: back pain, gout, joint pain, joint swelling, muscle pain, muscle stiffness, neck pain, others Integumetry: denies: bruises, change in color, change in hair/nails, dryness, laceration, lesions, lumps, rash, wounds, others Allergic/Immunocompromised: denies: Difficulty Healing, Frequent Infections, Hives, Itching, others Hematologic/Lymphatic: denies: anemia, blood clots, easy bleeding, easy bruising, swollen glands, others Endocrine: denies: excessive hunger, excessive sweating, excessive thirst, excessive urination, flushing, intolerance to cold, intolerance to heat, unexplained weight gain, unexplained weight loss, others Psychiatric: denies: anxiety, bipolar disorder, depression, hopeless, panic disorder, schizophrenia, sleepless, suicidal, others All Other Systems: Reviewed and Negative Physical Exam General Appearance: Moderate Distress, Normal HEENT: Normal ENT Inspection, Pharynx Normal, TMs Normal Neck: Full Range of Motion, Non-Tender, Normal, Normal Inspection Respiratory: Chest Non-Tender, Lungs Clear, No Accessory Muscle Use, No Respiratory Distress, Normal Breath Sounds Cardiovascular: No Edema, No JVD, No Murmur, No Gallop, Normal Peripheral Pulses, Regular Rate/Rhythm Breast Exam: Deferred Gastrointestinal: No Organomegaly, Non Tender, No Pulsatile Mass, Normal Bowel Sounds, Soft Genitalia: Deferred Pelvic: Deferred Rectal: Deferred Extremities: No calf tenderness, Normal capillary refill, Normal inspection, Normal range of motion, Non-tender, No pedal edema Musculoskeletal : Apperance: Normal Neurologic: Alert, senior game designer II-XII nml as Tested, No Motor Deficits, Normal Affect, Normal Mood, No Sensory Deficits Cerebellar Function: NOT DONE Reflexes: NOT DONE Skin: Dry, Normal Color, Warm Peripheral Pulses: 3+ Radial (R), 3+ Radial (L) Lymphatic: No Adenopathy Was a procedure done? Was a procedure done?: No EKG EKG : Pulse Rate (adult): 109 [place]: Normal Cardiac Rhythm: ST Block: None Hypertrophy: None ST: Normal Differential Dx Considerations may include: Hypertension Electrolyte imbalance X-Ray, Labs, Meds, VS Vital Signs Date Time Temp Pulse Resp B/P (MAP) Pulse Ox O2 Delivery O2 Flow Rate FiO2 09/01/24 15:08 106 212/137 09/01/24 14:55 97.8 107 18 212/137 (162) 97 97.8 09/01/24 14:49 109 09/01/24 14:45 99.3 114 18 206/136 (159) 96 99.3 09/01/24 14:32 109 Lab Test 09/01/24 15:06 Range/Units White Blood Count Pending Red Blood Count Pending Hemoglobin Pending Hematocrit Pending Mean Corpuscular Volume Pending Mean Corpuscular Hemoglobin Pending Mean Corpuscular Hemoglobin Concent Pending Red Cell Distribution Width Pending Platelet Count Pending Mean Platelet Volume Pending Neutrophils (%) (Auto) Pending Lymphocytes (%) (Auto) Pending Monocytes (%) (Auto) Pending Basophils (%) (Auto) Pending Neutrophils # (Auto) Pending Lymphocytes # (Auto) Pending Monocytes # (Auto) Pending Sodium Level Pending Potassium Level Pending Chloride Level Pending Carbon Dioxide Level Pending Anion Gap Pending Blood Urea Nitrogen Pending Creatinine Pending Glomerular Filtration Rate Calc Pending BUN/Creatinine Ratio Pending Serum Glucose Pending Calcium Level Pending Troponin I High Sensitivity Pending Current Medications Medications (Trade) Dose Ordered Sig/Jorge Route Start Time Stop Time Status Last Admin Labetalol HCl (Labetalol HCl) 10 mg ONCE ONCE IV 09/01/24 15:00 09/01/24 15:01 DC 09/01/24 15:08 Aspirin 325 mg ONCE ONCE PO 09/01/24 15:00 09/01/24 15:01 DC 09/01/24 15:07 Patient alert. Complaining of chest pain. Blood pressure elevated. Answering questions. Was given aspirin. Was given labetalol. Saturation pristine on room air. Explained to the patient he is at risk for cardiomyopathy. EKG does not show any acute process. Echocardiogram. Continue monitoring. Time of 1ST Reevaluation: 15:00 Reevaluation 1ST: Unchanged Patient Education/Counseling: Diagnosis, Treatment, Prognosis Family Education/Counseling: No Family Present SEPSIS Sepsis Screen Physician Orders Troponin-I Hs (09/01/24 14:44) Complete Blood Count (09/01/24 14:44) Chest Portable (09/01/24 14:44) Urinalysis (09/01/24 14:44) Basic Metabolic Panel (09/01/24 14:44) Troponin-I Hs (09/01/24 15:44) Troponin-I Hs (09/01/24 17:44) Vital Signs Date Time Temp Pulse Resp B/P (MAP) Pulse Ox O2 Delivery O2 Flow Rate FiO2 09/01/24 15:08 106 212/137 09/01/24 14:55 97.8 107 18 212/137 (162) 97 97.8 09/01/24 14:49 109 09/01/24 14:45 99.3 114 18 206/136 (159) 96 99.3 09/01/24 14:32 109 Laboratory Tests Test 09/01/24 15:06 White Blood Count Pending Medications Medications Dose Ordered Sig/Jorge Route Start Time Stop Time Status Last Admin Dose Admin Aspirin 325 mg ONCE ONCE PO 09/01/24 15:00 09/01/24 15:01 DC 09/01/24 15:07 Labetalol HCl 10 mg ONCE ONCE IV 09/01/24 15:00 09/01/24 15:01 DC 09/01/24 15:08 Departure 1 Departure Time of Disposition: 15:15 Impression: Primary Impression: Hypertensive emergency Additional Impression: Chest pain of unknown etiology Disposition: ADMITTED INPATIENT Admit to: Med Surg Condition: Guarded Critical Care Note Critical Care Time?: No Stability Stability form required: No Heart Score Heart Score: Heart Score Response (Comments) Value History Slightly Suspicious 0 EKG Normal 0 Age 45-64 1 Risk Factors 1 or 2 risk factors 1 Troponin Normal limit 0 Total 2 I personally scribed for KAYA DANIELSON MD ([email or web address]) on 09/01/24 at 14:49. Electronically submitted by Abelardo Angeles ([email or web address]). KAYA DANIELSON MD Sep 01, 2024 14:49
[2024-09-01] MEDS: LABETALOL HCL 20 MG/4 ML VL IV ONE (15:08)
[2024-09-01] MEDS: ONDANSETRON HCL 4 MG/2 ML VIAL IV ONE (15:23)
[2024-09-01] MEDS: MORPHINE SULFATE 4 MG/ML SYR/VIAL IV ONE (15:24)
[2024-09-01 15:27] LABS: Hematocrit 40.9 % (41.0-53.0); Hemoglobin 14.6 g/dL (13.5-17.5); Mean Corpuscular Hemoglobin 30.5 pg (28.0-32.0); Mean Corpuscular Volume 85.7 fL (80.0-100.0); Nucleated Red Blood Cells % 0.1 %
[2024-09-01 15:30] LABS: Potassium 4.0 mmol/L (3.5-5.1); Sodium 143 mmol/L (136-145)
[2024-09-01] MEDS: NITROGLYCERIN 0.4 MG SL TAB SL ONE (15:30)
[2024-09-01 15:31] LABS: Anion Gap 11 (5-15); Calcium 9.5 mg/dL (8.7-10.4); Carbon Dioxide 25 mmol/L (20-31)
[2024-09-01 15:32] LABS: Chloride 107 mmol/L (98-107)
[2024-09-01 15:36] LABS: BUN/Creatinine Ratio 9.4 (10.0-20.0); Blood Urea Nitrogen 9 mg/dL (9-23); Glucose 235 mg/dL (74-106)
--- NOTE | 2024-09-01 15:36 | DVH ---
EXAM: XY CHEST PORTABLE TECHNIQUE: Single frontal chest radiograph CLINICAL HISTORY: sob COMPARISON: XY CHEST PORTABLE on DOS: 08/30/24, XY CHEST PORTABLE on DOS: 08/13/24, XY CHEST PORTABLE on DOS: 08/02/24 Findings/Impression: Frontal chest radiograph demonstrates no acute osseous or superficial soft tissue abnormalities. The trachea is midline. Mild cardiomegaly. No pneumothorax, pleural effusions, or consolidations.
[2024-09-01] MEDS: MORPHINE SULFATE INJ 2 MG/ml SYRG IV ONE (17:32)
[2024-09-01] MEDS: NITROGLYCERIN 50MG/250ML 250 ML IV SCH (17:35)
[2024-09-01] MEDS: HYDROmorphone HCL 2 MG/ML VL/or syr IV ONE (18:44)
[2024-09-01] MEDS ORDERED: NITROGLYCERIN 0.4 MG SL TAB SL PRN ×2 (19:30)
[2024-09-01] MEDS ORDERED: MORPHINE SULFATE INJ 2 MG/ml SYRG IV PRN (19:30)
[2024-09-01] MEDS: HYDROcodone-ACET 5/325MG TAB PO PRN (19:54)
[2024-09-01 20:37] LABS: Urine Protein, UAD Negative (Negative)
[2024-09-01] MEDS: hydrALAZINE HCL 20 MG/ML VL IV PRN (20:43)
[2024-09-01] MEDS: ONDANSETRON HCL 4 MG/2 ML VIAL IV PRN (20:49)
[2024-09-01] MEDS: ACETAMINOPHEN 325 MG TAB PO PRN (21:26)
[2024-09-01] MEDS: CARVEDILOL 3.125 MG TAB PO SCH (21:57)
[2024-09-01] MEDS: TEMAZEPAM 15 MG CAP PO PRN (22:04)
--- NOTE | 2024-09-01 23:12 | DVHHP2 ---
History of Present Illness Reason for Visit: Chest pain History of Present Illness 49-year-old male initially presented with complaints of chest pain. He states his symptoms have been ongoing for the past one day. On arrival patient was noted to be hypertensive to 206/136. He also reported feeling dizzy and having a questionable syncopal episode. Currently denies chest pain, headache or blurred vision. Past Medical History Dyslipidemia, hypertension, CHF, CAD Past Surgical History Denies Family History Noncontributory Review of Systems Review of Systems Review of systems are currently negative otherwise addressed in HPI. Allergies: Coded Allergies: No Known Drug Allergy (Verified Allergy, Unknown, 12/24/23) Medications Current Medications Medications Dose Ordered Sig/Jorge Route Start Time Stop Time Status Last Admin Dose Admin Nitroglycerin 250 ml @ 1.5 mls/hr Q24H IV 09/01/24 17:00 09/01/24 17:35 1.5 MLS/HR Hydralazine HCl 10 mg Q6HP PRN IV 09/01/24 19:30 09/01/24 20:43 10 MG Aspirin 81 mg DAILY PO 09/02/24 10:00 Carvedilol 6.25 mg Q12HR PO 09/01/24 22:00 09/01/24 21:57 6.25 MG Furosemide 20 mg BIDD PO 09/02/24 06:00 Lisinopril 40 mg DAILY PO 09/02/24 10:00 Acetaminophen/ Hydrocodone Bitart 1 tab Q4HP PRN PO 09/01/24 19:30 09/01/24 19:54 1 TAB Temazepam 15 mg QHSP PRN PO 09/01/24 19:30 09/01/24 22:04 15 MG Ondansetron HCl 4 mg Q4HP PRN IV 09/01/24 19:30 09/01/24 20:49 4 MG Acetaminophen 650 mg Q6HP PRN PO 09/01/24 19:30 09/01/24 21:26 650 MG Nitroglycerin 0.4 mg Q5MINP PRN SL 09/01/24 19:30 Morphine Sulfate 2 mg Q30M PRN IV 09/01/24 19:30 Nitroglycerin 0.4 mg Q5MINP PRN SL 09/01/24 19:30 Morphine Sulfate 2 mg Q30M PRN IV 09/01/24 19:30 Exam Vital Signs Vital Signs Date Time Temp Pulse Resp B/P (MAP) Pulse Ox O2 Delivery O2 Flow Rate FiO2 09/01/24 22:15 139/76 09/01/24 22:15 107 17 95 09/01/24 20:00 98.3 98.3 09/01/24 15:15 Room Air* 0 21 Exam Gen: 49-year-old male in no apparent distress, morbidly obese Skin: Warm, dry, normal color and texture, no rash. HEENT: Normocephalic atraumatic, mucous membranes moist and pink. Neck: Cervical and supraclavicular nodes normal without enlargement, trachea is midline, thyroid gland is normal without masses. Pulmonary: Clear to auscultation and percussion bilaterally. Cardiac: Regular rate and rhythm. No murmur Abdomen: Soft, nontender, nondistended, bowel sounds present all 4 quadrants, no guarding, no rigidity, no organomegaly. Extremities: No cyanosis, clubbing, no edema Neuro: Cranial nerves II through XII grossly intact, normal affect and speech, no focal motor deficits. Labs/Xrays ORDERING PHYSICIAN: KAYA DANIELSON MD PROCEDURE(s): CXRP - CHEST PORTABLE REASON: sob ORDER NUMBER(s): [id number], ACCESSION NUMBER(s): [id number] EXAM: XY CHEST PORTABLE TECHNIQUE: Single frontal chest radiograph CLINICAL HISTORY: sob COMPARISON: XY CHEST PORTABLE on DOS: 08/30/24, XY CHEST PORTABLE on DOS: 08/13/24, XY CHEST PORTABLE on DOS: 08/02/24 Findings/Impression: Frontal chest radiograph demonstrates no acute osseous or superficial soft tissue abnormalities. The trachea is midline. Mild cardiomegaly. No pneumothorax, pleural effusions, or consolidations. Labs Test 09/01/24 19:30 09/01/24 18:09 09/01/24 15:06 Range/Units Urine Color Yellow Yellow Urine Clarity Clear Clear Urine pH 6.0 5.0-9.0 Urine Specific [place] 1.030 1.001-1.035 Urine Protein Negative Negative Urine Ketones Negative Negative Urine Blood Negative Negative /uL Urine Nitrite Negative Negative Urine Bilirubin Negative Negative Urine Urobilinogen Normal Negative mg/dL Urine Leukocyte Esterase Negative Negative /uL Urine RBC 1 0 - 3 /hpf Urine Microscopic WBC 1 0-3 /HPF Urine Squamous Epithelial Cells Few <5 /hpf Urine Bacteria None seen None Seen /hpf Urine Mucus Few None Seen Urine Glucose 4+ H Normal mg/dL Troponin I High Sensitivity 6 </=54 ng/L White Blood Count 8.9 4.4-10.8 10^3/uL Red Blood Count 4.78 4.5-5.90 10^6/uL Hemoglobin 14.6 13.5-17.5 g/dL Hematocrit 40.9 L 41.0-53.0 % Mean Corpuscular Volume 85.7 80.0-100.0 fL Mean Corpuscular Hemoglobin 30.5 28.0-32.0 pg Mean Corpuscular Hemoglobin Concent 35.7 32.0-36.0 g/dL Red Cell Distribution Width 14.7 H 11.8-14.3 % Platelet Count 253 140-450 10^3/uL Mean Platelet Volume 8.5 6.9-10.8 fL Neutrophils (%) (Auto) 70.5 37.0-80.0 % Lymphocytes (%) (Auto) 18.8 10.0-50.0 % Monocytes (%) (Auto) 7.8 0.0-12.0 % Eosinophils (%) (Auto) 2.2 0.0-7.0 % Basophils (%) (Auto) 0.7 0.0-2.0 % Neutrophils # (Auto) 6.3 1.6-8.6 10 ^3/uL Lymphocytes # (Auto) 1.7 0.4-5.4 10 ^3/uL Monocytes # (Auto) 0.7 0-1.3 10 ^3/uL Eosinophils # (Auto) 0.2 0-0.8 10 ^3/uL Basophils # (Auto) 0.1 0-0.2 10 ^3/uL Nucleated Red Blood Cells 0.1 % Sodium Level 143 136-145 mmol/L Potassium Level 4.0 3.5-5.1 mmol/L Chloride Level 107 98-107 mmol/L Carbon Dioxide Level 25 20-31 mmol/L Anion Gap 11 5-15 Blood Urea Nitrogen 9 9-23 mg/dL Creatinine 0.96 0.700-1.30 mg/dL Glomerular Filtration Rate Calc 97 >90 mL/min BUN/Creatinine Ratio 9.4 L 10.0-20.0 Serum Glucose 235 H 74-106 mg/dL Calcium Level 9.5 8.7-10.4 mg/dL Assessment/Plan Assessment/Plan Assessment Hypertensive emergency Diabetes mellitus Chest pain Morbid obesity Plan Admit the patient to ICU to the hospitalist Continue nitroglycerin drip As needed antihypertensives to wean nitroglycerin drip Resume home medications Continue treatment per orders Plan discussed with: Patient My Orders Orders - LANETTE CUELLO AGACNP Procedure Category Date Status Time Hydralazine Injection PHA 09/01/24 In Process (Apresoline Inject 19:30 Aspirin Tablet PHA 09/02/24 In Process 10:00 Carvedilol Tablet PHA 09/01/24 In Process (Coreg Tablet) 22:00 Furosemide Tablet PHA 09/02/24 In Process (Lasix Tablet) 06:00 Lisinopril Tablet PHA 09/02/24 In Process (Zestril Tablet) 10:00 * Cardiology Consult CONS 09/01/24 Transmitted 19:26 Basic Metabolic Panel LAB 09/02/24 Verified 04:00 Hydrocodone-Acet PHA 09/01/24 In Process 5/325mg Tab ([place] 19:30 Temazepam (Restoril) PHA 09/01/24 In Process 19:30 Ondansetron Hcl PHA 09/01/24 In Process (Zofran) 19:30 Cardiac DIET 09/02/24 Transmitted Diet-2gna,Lofat,Lochol Breakfast Condition: Fair JASWANT 09/01/24 In Process 19:26 Acetaminophen Tablet PHA 09/01/24 In Process (Tylenol Tablet) 19:30 Bedrest With Bathroom JASWANT 09/01/24 In Process Privileg 19:26 Nitroglycerin PHA 09/01/24 In Process Sublingual (Ntrostat 19:30 Morphine Sulfate PHA 09/01/24 In Process Injection 19:30 Stat Ekg For Chest JASWANT 09/01/24 In Process Pain 19:26 Notify Md Of Changes JASWANT 09/01/24 In Process From Base 19:26 Brusher Tender For [facility] 09/01/24 In Process 24 Hours 19:26 Emergency Dysrhythmia JASWANT 09/01/24 In Process Protocol 19:26 Rhythm Strips Once JASWANT 09/01/24 In Process Every Shift 19:26 Oxygen By Nasal RT 09/01/24 Transmitted Cannula 19:26 Admit ADMIT 09/01/24 Transmitted 19:26 Nitroglycerin PHA 09/01/24 In Process Sublingual (Ntrostat 19:30 Morphine Sulfate PHA 09/01/24 In Process Injection 19:30 Stat Ekg For Chest [facility] 09/01/24 In Process Pain 19:26 Notify Md Of Changes [facility] 09/01/24 In Process From Base 19:26 Brusher Tender For [facility] 09/01/24 In Process 24 Hours 19:26 Emergency Dysrhythmia [facility] 09/01/24 In Process Protocol 19:26 Rhythm Strips Once [facility] 09/01/24 In Process Every Shift 19:26 Oxygen By Nasal RT 09/01/24 Transmitted Cannula 19:26 Date of Service: Sep 01, 2024 Billing Provider: LANETTE CUELLO Common Visit Codes: [id number] CARE 30-74 MIN LANETTE CUELLO Sep 01, 2024 23:11
[2024-09-02] VITALS (68 sets, daily range): BP systolic 107–181; BP diastolic 54–121; PULSE 92–109; RESP 11–30; TEMP 98.1–98.5; O2SAT 90–98
[2024-09-02] MEDS: LABETALOL HCL 20 MG/4 ML VL IV ONE (00:20)
[2024-09-02] MEDS: HYDROmorphone HCL 2 MG/ML VL/or syr IV ONE ×3 (00:21→13:57)
[2024-09-02 05:02] LABS: Anion Gap 8 (5-15); Carbon Dioxide 30 mmol/L (20-31); Chloride 105 mmol/L (98-107); Sodium 143 mmol/L (136-145)
[2024-09-02 05:04] LABS: Calcium 9.0 mg/dL (8.7-10.4)
[2024-09-02 05:05] LABS: Potassium 3.4 mmol/L (3.5-5.1)
[2024-09-02 05:09] LABS: BUN/Creatinine Ratio 9.1 (10.0-20.0); Blood Urea Nitrogen 9 mg/dL (9-23)
[2024-09-02 05:18] LABS: Glucose 167 mg/dL (74-106)
[2024-09-02] MEDS: FUROSEMIDE 20 MG TAB PO SCH (06:35)
[2024-09-02] MEDS: POTASSIUM CHL 20 Meq TABLET PO ONE (06:52)
[2024-09-02] MEDS: MORPHINE SULFATE INJ 2 MG/ml SYRG IV PRN (07:48)
--- NOTE | 2024-09-02 09:07 | DVHINCON2 ---
RYAN ROLLINS [facility] 09/02/24 0907: Date Seen: Sep 02, 2024 Referring Physician ALICIA Raman Reason for Consultation Chest pain History of Present Illness This is a 49-year-old man who presents to the emergency room with multiple complaints including uncontrolled blood pressure. The patient reports a blood pressure of 280/146 mmHg prompting him to seek further medical attention. States he has unbearable left abdominal pain showing a "mass" which is tender to touch. Complains also includes chest pain localized to the substernal area and described as pins and needles which is triggered by his abdominal pain. At time of assessment the patient reported right-sided chest pain. He also reports a syncopal event where he LOC for 4-5 minutes with no head trauma, oral trauma, or incontinence. Complaints includes nausea, vomiting, constipation, and decreased appetite. He is currently on a nitroglycerin drip for blood pressure control. States he is compliant with his Coreg and lisinopril therapy at home. A 12 lead electrocardiogram revealed a sinus tachycardia rhythm at 101 bpm and no evidence of acute ST-T wave changes. Serial troponin levels are negative. Denies following up in the outpatient setting with the primary preliminary school psychologist. Significant medical history includes nonischemic cardiomyopathy, hypertension, dyslipidemia, insulin-dependent diabetes mellitus, obesity, and prior history of polysubstance abuse. Past Medical History Past medical history reviewed. No other significant than mentioned above. Past Surgical History Past surgical history reviewed. No other significant than mentioned above. Family History: FHx: multiple myeloma G8 MOTHER, Family History Family history reviewed. Social History Denies the use of illicit drugs, alcohol, or tobacco use. Allergies: Coded Allergies: No Known Drug Allergy (Verified Allergy, Unknown, 12/24/23) Home Meds Active Scripts Lisinopril (Lisinopril) 40 Mg Tab, 1 TAB PO DAILY, #30 TAB 1 Refill Prov:CAROLINA OVALLE MD 08/23/24 Carvedilol (Carvedilol) 6.25 Mg Tab, 1 TAB PO BID, #60 TAB 1 Refill Prov:CAROLINA OVALLE MD 08/23/24 Duloxetine Hcl (Cymbalta) 20 Mg Cap, 1 CAP PO DAILY for 30 Days, #30 CAP Prov:ALE HARRIS 6/19/25 Pantoprazole Sodium Sesquihydr (Protonix) 40 Mg Tab, 40 MG PO DAILY for 30 Days, #30 TAB 1 Refill Prov:CAROLINA OVALLE MD 08/02/24 Insulin Glargine (Lantus) 100 Unit/Ml Inj, 35 UNITS SC BID@1000,2200 for 30 Days, #1 INJ Prov:CORRINE GRAHAM RESIDENT 12/28/23 Ergocalciferol (VITAMIN D 67491 UNIT) 50,000 [place], [address] UNIT PO Q7D for 30 Days, #30 CAP Prov:CORRINE GRAHAM RESIDENT 12/28/23 Reported Medications Pregabalin (Lyrica) 50 Mg Cap, 1 CAP PO BID, #60 CAP 08/15/24 Insulin Lispro (Humalog Kwikpen) 100 Unit/Ml Inj, 25 UNITS SC AC for 40 Days, #30 08/14/24 Aspirin (Aspirin Low Dose) 81 Mg Tab, 1 TAB PO DAILY for 90 Days, #90 08/14/24 Trazodone Hcl (Trazodone Hcl) 50 Mg Tab, 1 TAB PO QHSP PRN for PSYCHOPHYSIOLOGIC INSOMNIA for 30 Days, #30 08/14/24 Furosemide (Furosemide) 20 Mg Tab, 1 TAB PO BID for 90 Days, #180 08/14/24 Hydroxyzine Hcl (Hydroxyzine Hcl) 25 Mg Tab, 1 TAB PO DAILY for 30 Days, #30 08/14/24 Linaclotide Base (LINZESS) 145 Mcg Cap, 1 CAP PO DAILY for 30 Days, #30 08/14/24 Nitroglycerin (NTROSTAT SUBLINGUAL) 0.4 Mg Sl, 0.4 MG SL PRN, TAB *MAY REPEAT EVERY 5 MINUTES X 3 TOTAL IF NO RELIEF, INITIATE ANALGESIC THERAPY. NOTIFY PHYSICIAN *Do not crush. 12/25/23 Tramadol Hcl (Tramadol Hcl) 50 Mg Tab, 50 MG PO, TAB 12/25/23 Discontinued Scripts Metoclopramide Hcl (Metoclopramide Hcl) 10 Mg Tab, 10 MG PO BID for 4 Days, #15 TAB 0 Refills Prov:CAROLINA OVALLE MD 08/23/24 Hydrocodone-Acetaminophen (Hydrocodone Bitartrate/AC 5-325 mg) 1 Tab Tab, 1 TAB PO Q8HPRN PRN for 7 Days, #21 TAB Prov:MARY BOSCH MD 08/15/24 Sennosides-Docusate Sodium (Senokot S) 1 Tab Tab, 1 TAB PO BID for 14 Days, #30 TAB 0 Refills Prov:CAROLINA OVALLE MD 08/02/24 Polyethylene Glycol 3350 (Goodsense Clearlax) 17 Gm/Scoop Pow, 17 GM PO DAILY for 10 Days, #17.9 POW 0 Refills Prov:CAROLINA OVALLE MD 08/02/24 Sucralfate (CARAFATE SUSP) 1 Gm/10 Ml Ss, 10 ML PO BID for 30 Days, #600 ML 0 Refills Prov:CAROLINA OVALLE MD 08/02/24 Dicyclomine Hcl (BENTYL CAPSULE) 10 Mg Cp, 1 CAP PO Q6HPRN PRN, #30 CAP 0 Refills Prov:CAROLINA OVALLE MD 08/02/24 Home Meds Home medications reviewed. Current Medications Current Medications Medications (Trade) Dose Ordered Sig/Jorge Route PRN Reason Start Time Stop Time Status Last Admin Nitroglycerin 250 ml @ 1.5 mls/hr Q24H IV 09/01/24 17:00 09/01/24 17:35 Hydralazine HCl (Apresoline Injection) 10 mg Q6HP PRN IV SBP>150 09/01/24 19:30 09/02/24 03:35 Aspirin 81 mg DAILY PO 09/02/24 10:00 Carvedilol (Coreg Tablet) 6.25 mg Q12HR PO 09/01/24 22:00 09/01/24 21:57 Furosemide (Lasix Tablet) 20 mg BIDD PO 09/02/24 06:00 09/02/24 06:35 Lisinopril (Zestril Tablet) 40 mg DAILY PO 09/02/24 10:00 Acetaminophen/ Hydrocodone Bitart (Hyampom 5/325MG Tab) 1 tab Q4HP PRN PO MODERATE PAIN (4-6 PAIN SCALE) 09/01/24 19:30 09/01/24 19:54 Temazepam (Restoril) 15 mg QHSP PRN PO FOR INSOMNIA 09/01/24 19:30 09/01/24 22:04 Ondansetron HCl (Zofran) 4 mg Q4HP PRN IV NAUSEA / VOMITING 09/01/24 19:30 09/01/24 20:49 Acetaminophen (Tylenol Tablet) 650 mg Q6HP PRN PO PAIN SCALE 1-3 OR TEMP>100.4 09/01/24 19:30 09/01/24 21:26 Nitroglycerin (Ntrostat Sublingual) 0.4 mg Q5MINP PRN SL FOR CHEST PAIN 09/01/24 19:30 Morphine Sulfate 2 mg Q30M PRN IV FOR CHEST PAIN 09/01/24 19:30 09/02/24 07:48 Nitroglycerin (Ntrostat Sublingual) 0.4 mg Q5MINP PRN SL FOR CHEST PAIN 09/01/24 19:30 Morphine Sulfate 2 mg Q30M PRN IV FOR CHEST PAIN 09/01/24 19:30 Review of Systems Constitutional: No symptom reported Ears, Nose, & Throat: No symptom reported Eyes: No symptom reported Neurological: Syncope Pulmonary/Respiratory: No symptom reported Cardiovascular: Chest pain Gastrointestinal: Abdominal pain Genitourinary: No symptom reported Musculoskeletal: No symptom reported Skin: No symptom reported Psychiatric: No symptom reported Endocrine: No symptom reported Hemotologic/Lymphatic: No symptom reported Vital Signs Vital Signs Date Time Temp Pulse Resp B/P (MAP) Pulse Ox O2 Delivery O2 Flow Rate FiO2 09/02/24 08:00 100 09/02/24 08:00 17 93 Room Air* 0 21 09/02/24 07:48 157/104 09/02/24 04:00 98.5 98.5 Physical Exam General Appearance: Cooperative. Well developed. Obese. In no acute distress Head Exam: Normal inspection Neck Exam: Normal inspection. Non-tender. Normal alignment Pulmonary/Respiratory: Chest non-tender. Clear bilateral breath sounds Cardiovascular/Chest: Regular rate and rhythm. S1, S2. NSR. No murmurs. No JVD. Peripheral Pulses: 2+ Radial (R). 2+ Radial (L). 2+ Pedal (R). 2+ Pedal (L) Abdominal Exam: Normal bowel sounds. Soft. Tenderness to left sided abd Ankle Exam: Negative ankle edema Lower extremities: Negative lower extremity edema Neuro/Mental Status: A&O x4. Coherent Thoughts/Psych: Normal thought pattern. Appropriate mood and affect. Good judgement and insight Appearance: In no acute distress Skin Exam: Normal inspection. Normal color. Warm. Dry Labs/Diagnostic Data Labs Test 09/02/24 03:15 09/02/24 01:55 09/01/24 19:30 09/01/24 18:09 Range/Units Sodium Level 143 136-145 mmol/L Potassium Level 3.4 L 3.5-5.1 mmol/L Chloride Level 105 98-107 mmol/L Carbon Dioxide Level 30 20-31 mmol/L Anion Gap 8 5-15 Blood Urea Nitrogen 9 9-23 mg/dL Creatinine 0.99 0.700-1.30 mg/dL Glomerular Filtration Rate Calc 93 >90 mL/min BUN/Creatinine Ratio 9.1 L 10.0-20.0 Serum Glucose 167 H 74-106 mg/dL Calcium Level 9.0 8.7-10.4 mg/dL POC Glucose 152 H 70-106 mg/dl Urine Color Yellow Yellow Urine Clarity Clear Clear Urine pH 6.0 5.0-9.0 Urine Specific [place] 1.030 1.001-1.035 Urine Protein Negative Negative Urine Ketones Negative Negative Urine Blood Negative Negative /uL Urine Nitrite Negative Negative Urine Bilirubin Negative Negative Urine Urobilinogen Normal Negative mg/dL Urine Leukocyte Esterase Negative Negative /uL Urine RBC 1 0 - 3 /hpf Urine Microscopic WBC 1 0-3 /HPF Urine Squamous Epithelial Cells Few <5 /hpf Urine Bacteria None seen None Seen /hpf Urine Mucus Few None Seen Urine Glucose 4+ H Normal mg/dL Troponin I High Sensitivity 6 </=54 ng/L Test 09/01/24 15:06 Range/Units White Blood Count 8.9 4.4-10.8 10^3/uL Red Blood Count 4.78 4.5-5.90 10^6/uL Hemoglobin 14.6 13.5-17.5 g/dL Hematocrit 40.9 L 41.0-53.0 % Mean Corpuscular Volume 85.7 80.0-100.0 fL Mean Corpuscular Hemoglobin 30.5 28.0-32.0 pg Mean Corpuscular Hemoglobin Concent 35.7 32.0-36.0 g/dL Red Cell Distribution Width 14.7 H 11.8-14.3 % Platelet Count 253 140-450 10^3/uL Mean Platelet Volume 8.5 6.9-10.8 fL Neutrophils (%) (Auto) 70.5 37.0-80.0 % Lymphocytes (%) (Auto) 18.8 10.0-50.0 % Monocytes (%) (Auto) 7.8 0.0-12.0 % Eosinophils (%) (Auto) 2.2 0.0-7.0 % Basophils (%) (Auto) 0.7 0.0-2.0 % Neutrophils # (Auto) 6.3 1.6-8.6 10 ^3/uL Lymphocytes # (Auto) 1.7 0.4-5.4 10 ^3/uL Monocytes # (Auto) 0.7 0-1.3 10 ^3/uL Eosinophils # (Auto) 0.2 0-0.8 10 ^3/uL Basophils # (Auto) 0.1 0-0.2 10 ^3/uL Nucleated Red Blood Cells 0.1 % Assessment Non-cardiac chest pain in the setting of hypertensive emergency Syncope rule out acute neurological processes Chronic compensated HFrEF, NYHA Class II Non-ischemic/drug induced cardiomyopathy Insulin-dependent diabetes mellitus Dyslipidemia Poor medical compliance/drug seeking behavior Obesity Plan/Recommendation (Dr. Banks) The patient presents with non-cardiac chest pain in the setting of hypertensive emergency. He underwent a previous cardiac catheterization revealing a non- ischemic cardiomyopathy. A recent transthoracic echocardiogram revealed an LVEF of 30-35%. Initiate GDMT for HFrEF and up-titrate as necessary for a SBP <140 mmHg. Titrate off NTG drip accordingly. Replete electrolytes as necessary. O btain a head CT given reported syncope and collapse. Patient is to follow-up with a primary preliminary school psychologist in the outpatient setting as he may qualify for an eventual AICD if not improvement of LVEF with three months of GDMT for CHF. An event monitor as outpatient is advised as well. Strongly counseled on medical compliance and routine follow-ups with a primary preliminary school psychologist. There is no further cardiac work-up indicated at this time. Kindly call if in need to re- consult. Thank you for allowing us to participate in this patient's care. This medical document was created using an electronic medical record system with voice recognition software and computerized dictation system. Although this document has been carefully reviewed, there might still be some phonetic and typographical errors. Occasional wrong-word or ``sound-alike substitutions may have occurred due to the inherent limitations of voice recognition software. These areas are purely typographical due to imperfections of the software programs and do not reflect any compromise in the patient's medical care. Please read the chart carefully and recognize, using context, where these substitutions have occurred. Plan discussed with: Patient, Other NYHA Physical activity limitations: Class2(Slight)fatigue,sob (palpitatns, angina w activityv) Date of Service: Sep 02, 2024 Billing Provider: RYAN ROLLINS Cardiology Common Codes: [id number] INP/OBS CARE (High) DAMASO BANKS MD 09/02/24 1311: Family History: FHx: multiple myeloma G8 MOTHER, Allergies: Coded Allergies: No Known Drug Allergy (Verified Allergy, Unknown, 12/24/23) Home Meds Active Scripts Lisinopril (Lisinopril) 40 Mg Tab, 1 TAB PO DAILY, #30 TAB 1 Refill Prov:CAROLINA OVALLE MD 08/23/24 Carvedilol (Carvedilol) 6.25 Mg Tab, 1 TAB PO BID, #60 TAB 1 Refill Prov:CAROLINA OVALLE MD 08/23/24 Duloxetine Hcl (Cymbalta) 20 Mg Cap, 1 CAP PO DAILY for 30 Days, #30 CAP Prov:ALE HARRIS 08/15/24 Pantoprazole Sodium Sesquihydr (Protonix) 40 Mg Tab, 40 MG PO DAILY for 30 Days, #30 TAB 1 Refill Prov:CAROLINA OVALLE MD 08/02/24 Insulin Glargine (Lantus) 100 Unit/Ml Inj, 35 UNITS SC BID@1000,2200 for 30 Days, #1 INJ Prov:CORRINE GRAHAM RESIDENT 12/28/23 Ergocalciferol (VITAMIN D 37683 UNIT) 50,000 [place], [address] UNIT PO Q7D for 30 Days, #30 CAP Prov:CORRINE GRAHAM 12/28/23 Reported Medications Pregabalin (Lyrica) 50 Mg Cap, 1 CAP PO BID, #60 CAP 08/15/24 Insulin Lispro (Humalog Kwikpen) 100 Unit/Ml Inj, 25 UNITS SC AC for 40 Days, #30 08/14/24 Aspirin (Aspirin Low Dose) 81 Mg Tab, 1 TAB PO DAILY for 90 Days, #90 08/14/24 Trazodone Hcl (Trazodone Hcl) 50 Mg Tab, 1 TAB PO QHSP PRN for PSYCHOPHYSIOLOGIC INSOMNIA for 30 Days, #30 08/14/24 Furosemide (Furosemide) 20 Mg Tab, 1 TAB PO BID for 90 Days, #180 08/14/24 Hydroxyzine Hcl (Hydroxyzine Hcl) 25 Mg Tab, 1 TAB PO DAILY for 30 Days, #30 08/14/24 Linaclotide Base (LINZESS) 145 Mcg Cap, 1 CAP PO DAILY for 30 Days, #30 08/14/24 Nitroglycerin (NTROSTAT SUBLINGUAL) 0.4 Mg Sl, 0.4 MG SL PRN, TAB *MAY REPEAT EVERY 5 MINUTES X 3 TOTAL IF NO RELIEF, INITIATE ANALGESIC THERAPY. NOTIFY PHYSICIAN *Do not crush. 12/25/23 Tramadol Hcl (Tramadol Hcl) 50 Mg Tab, 50 MG PO, TAB 12/25/23 Discontinued Scripts Metoclopramide Hcl (Metoclopramide Hcl) 10 Mg Tab, 10 MG PO BID for 4 Days, #15 TAB 0 Refills Prov:CAROLINA OVALLE MD 08/23/24 Hydrocodone-Acetaminophen (Hydrocodone Bitartrate/AC 5-325 mg) 1 Tab Tab, 1 TAB PO Q8HPRN PRN for 7 Days, #21 TAB Prov:MARY BOSCH MD 08/15/24 Sennosides-Docusate Sodium (Senokot S) 1 Tab Tab, 1 TAB PO BID for 14 Days, #30 TAB 0 Refills Prov:CAROLINA OVALLE MD 08/02/24 Polyethylene Glycol 3350 (Goodsense Clearlax) 17 Gm/Scoop Pow, 17 GM PO DAILY for 10 Days, #17.9 POW 0 Refills Prov:CAROLINA OVALLE MD 08/02/24 Sucralfate (CARAFATE SUSP) 1 Gm/10 Ml Ss, 10 ML PO BID for 30 Days, #600 ML 0 Refills Prov:CAROLINA OVALLE MD 08/02/24 Dicyclomine Hcl (BENTYL CAPSULE) 10 Mg Cp, 1 CAP PO Q6HPRN PRN, #30 CAP 0 Refills Prov:CAROLINA OVALLE MD 08/02/24 Plan/Recommendation pt with NICM pt claims to be compliant with meds add afterload reduction for low EF cont BB LHC was - in past abd pain workup per primary team signig off seem with cv team Plan discussed with: Patient RYAN ROLLINS MANAGER OF DATA Sep 02, 2024 09:07 DAMASO BANKS MD Sep 02, 2024 13:11
--- NOTE | 2024-09-02 09:14 | ECG ---
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
[2024-09-02] MEDS: MORPHINE SULFATE INJ 2 MG/ml SYRG IV ONE (09:15)
--- NOTE | 2024-09-02 10:01 | DVH ---
EXAM: CT HEAD WITHOUT CONTRAST INDICATION: Syncope TECHNIQUE: CT of the head without intravenous contrast. Coronal and sagittal reformatted images are s ubmitted. Radiation Dose : 1. Head: CT Dose: CTDI volume is 68.21 mGy. Dose-length product is 1343.95 mGy*cm The dose indicators for CT are the volume Computed Tomography (CT) Dose Index (CTDIvol) and the Dose Length Product (DLP), and are measured in units of mGy and mGy-cm, respectively. These indicators are not patient dose, but values generated from the CT scanner acquisition factors. The report includes radiation exposure data for exposures received during this examination. All CT scans at this medical facility are performed using dose modulation techniques as appropriate to a performed exam including the following: Automated exposure control was utilized; adjustment of the MA and/or KV according to patient size; and use of iterative reconstruction technique. COMPARISON: None FINDINGS: There is no evidence of acute intracranial hemorrhage, extra-axial collection, mass effect, midline s hift, herniation or hydrocephalus. The ventricles, sulci and cisterns are age appropriate. The alas-white differentiation is intact. There is mucosal thickening in the bilateral maxillary sinuses. Maxillary sinuses are patent. No depressed calvarial fracture. The surrounding soft tissues are unremarkable. IMPRESSION: 1. No acute intracranial abnormality.
[2024-09-02] MEDS: CARVEDILOL 3.125 MG TAB PO SCH (10:24)
[2024-09-02] MEDS: LISINOPRIL 20 MG TAB PO SCH (10:24)
--- NOTE | 2024-09-02 11:33 | DVH ---
Exam: US ABDOMEN LIMITED Date: 09/02/2024 10:48 AM Clinical History: left side sided abdominal mass Comparison: None Findings: Targeted sonographic evaluation of the soft tissues of the left upper quadrant was obtained utilizing grayscale and color Doppler imaging. There is left upper quadrant hernia containing loop of bowel. IMPRESSION: There is left upper quadrant hernia containing loop of bowel. END IMPRESSION:
--- NOTE | 2024-09-02 13:18 | DVHPNRES ---
Progress Note Date Seen: Sep 02, 2024 Resident Creating Document: FARRAH DEL TORO RESIDENT Medical Necessity Reason Pt with a Central, PICC or Fol: No Subjective Review of Systems Patient is a 49-year-old male past medical history of diabetes, dyslipidemia, hypertension, CHF and CAD initially presented with thin soft chest pain which was squeezing and pressure-like, nonradiating, no aggravating or relieving factors. patient states that his symptoms were all ongoing for the past 1 day and when he came to the ED his hypertension was 206/136 but has no signs of end organ damage. He reported feeling dizzy and having a syncopal episode with loss of consciousness, but did not report any trauma to the head. Patient was seen and examined at bedside. Patient is in distress, alert oriented x3. Patient is currently reporting abdominal pain mostly in the left upper quadrant which was persistent since 2 months and is 10/10 in intensity and is tender, and warm to touch presenting with a lump which bulges with valsava maneuver, pain is somewhat relieved when leaning forward, ultrasound abdomen ordered, patient is also is scared to eat and has lost 30 lb in the last 2 months. He also complains of intermittent right-sided numbness and tingling. Patient also complains of occipital headache which is radiating to the neck. Cardiology and Surgery was consulted. Constitutional: reports 30 lb weight loss in 2 months, no fever and chills. HEENT: Denies changes in vision and hearing. Respiratory: Denies shortness of breath and cough Cardiovascular: Mild chest discomfort. GI: obese abdomen, left upper Quadrant pain , left sided lump which bulges on valsalva : Denies dysuria and urinary frequency. Musculoskeletal: Denies myalgias and joint pain Skin: Denies rash and pruritus. Neurological: occipital headache , NO vision or hearing problems Objective vital signs Vital Sign Date Time Temp Pulse Resp B/P (MAP) Pulse Ox O2 Delivery O2 Flow Rate FiO2 09/02/24 12:00 97 09/02/24 11:00 23 144/94 (111) 96 09/02/24 10:00 Room Air* 0 21 09/02/24 08:00 98.5 98.5 Total Intake and Output 09/01/24 09/01/24 09/02/24 15:00 23:00 07:00 Intake Total 251.0 ml 237.5 ml Output Total 425 ml Balance 251.0 ml -187.5 ml medications Current Medications Medications Dose Ordered Sig/Jorge Route Start Time Stop Time Status Last Admin Dose Admin Nitroglycerin 250 ml @ 1.5 mls/hr Q24H IV 09/01/24 17:00 09/01/24 17:35 1.5 MLS/HR Hydralazine HCl 10 mg Q6HP PRN IV 09/01/24 19:30 09/02/24 03:35 10 MG Aspirin 81 mg DAILY PO 09/02/24 10:00 09/02/24 10:23 81 MG Lisinopril 40 mg DAILY PO 09/02/24 10:00 09/02/24 10:24 40 MG Acetaminophen/ Hydrocodone Bitart 1 tab Q4HP PRN PO 09/01/24 19:30 09/02/24 11:18 1 TAB Ondansetron HCl 4 mg Q4HP PRN IV 09/01/24 19:30 09/01/24 20:49 4 MG Acetaminophen 650 mg Q6HP PRN PO 09/01/24 19:30 09/01/24 21:26 650 MG Nitroglycerin 0.4 mg Q5MINP PRN SL 09/01/24 19:30 Cancel Morphine Sulfate 2 mg Q30M PRN IV 09/01/24 19:30 Cancel Carvedilol 25 mg Q12HR PO 09/02/24 10:00 09/02/24 10:24 25 MG Spironolactone 25 mg DAILY PO 09/03/24 10:00 Empaglifozin 10 mg DAILY PO 09/03/24 10:00 Examination General: Patient alert and oriented in person, place and time. Patient following commands. Patient in Acute distress HEENT: Normocephalic, atraumatic, moist mucous membranes Respiratory/pulmonary: Clear lungs bilaterally, vesicular murmurs present in almost all lung warren, no associated crackles or wheezes. Cardiovascular: Normal heart sounds S1 and S2 with no associated murmurs Abdomen: Obese abdomen. No nause or vomiting, Severe left upper quadrant abdominal tenderness on palpation. Extremities: There is no peripheral edema present at the lower extremities. Peripheral Pulses: 3+ Radial (R). 3+ Radial (L). 3+ Dorsalis pedis (R). 3+ Dorsalis pedis(L) Skin: No rashes or pruritus, there is no sacral edema present at this time. Neurological: Intact cranial nerves with no focal neurologic deficits. laboratory and microbiology Laboratory Tests 09/02/24 03:15 09/01/24 15:06 Test 09/02/24 03:15 Range/Units Serum Glucose 167 H 74-106 mg/dL Problem List/Assessment/Plan Problem List/Assessment/Plan # Hypertensive emergency # Chest pain likely non-cardiac in the setting of hypertensive emergency plan: Nitroglycerin drip given IV labetalol once Coreg, lisinopril, IV hydralazine as needed Continuous monitoring of blood pressure Cardiology on board, advised titrate off NTG drip accordingly, stopped # Left upper quadrant hernia containing loop of bowel, -USG showed There is left upper quadrant hernia containing loop of bowel. - Sx consulted, advised CT abs/pel with contrast, pending #syncope CT head- showed no Acute changes # Non-ischemic cardiomyopathy. # Chronic compensated HFrEF, NYHA Class II # Dyslipidemia Cardiology Was consulted, A recent transthoracic echocardiogram revealed an LVEF of 30-35%. GDMT for HFrEF # Poor medical compliance/drug seeking behavior -consult regarding importance of adherence of medications explained about risks and benefits GI prophylaxis: Not indicated now VTE prophylaxis: Ambulatory Goals of care discussed with the patient for more than 27 minutes: full code status Case discussed with Dr. Bosch Plan discussed with: Patient My Orders My Orders Orders - FARRAH DEL TORO Procedure Category Date Status Time Abdomen Limited US 09/02/24 Resulted 10:14 Date of Service: Sep 02, 2024 Billing Provider: MARY BOSCH MD Common Visit Codes: [id number] INP/OBS CARE(HIGH) FARRAH DEL TORO Sep 02, 2024 13:18 MARY BOSCH MD Sep 03, 2024 20:26
[2024-09-02] MEDS ORDERED: MORPHINE SULFATE 4 MG/ML SYR/VIAL IV PRN (13:45)
--- NOTE | 2024-09-02 14:13 | DVHINCON2 ---
Date of service: Sep 02, 2024 Family History: FHx: multiple myeloma G8 MOTHER, Allergies: Coded Allergies: No Known Drug Allergy (Verified Allergy, Unknown, 12/24/23) Home Meds Active Scripts Lisinopril (Lisinopril) 40 Mg Tab, 1 TAB PO DAILY, #30 TAB 1 Refill Prov:CAROLINA OVALLE MD 08/23/24 Carvedilol (Carvedilol) 6.25 Mg Tab, 1 TAB PO BID, #60 TAB 1 Refill Prov:CAROLINA OVALLE MD 08/23/24 Duloxetine Hcl (Cymbalta) 20 Mg Cap, 1 CAP PO DAILY for 30 Days, #30 CAP Prov:ALE [facility]IS [facility] 08/15/24 Pantoprazole Sodium Sesquihydr (Protonix) 40 Mg Tab, 40 MG PO DAILY for 30 Days, #30 TAB 1 Refill Prov:CAROLINA OVALLE MD 08/02/24 Insulin Glargine (Lantus) 100 Unit/Ml Inj, 35 UNITS SC BID@1000,2200 for 30 Days, #1 INJ Prov:CORRINE GRAHAM RESIDENT 12/28/23 Ergocalciferol (VITAMIN D 14700 UNIT) 50,000 [place], [address] UNIT PO Q7D for 30 Days, #30 CAP Prov:[facility] 12/28/23 Reported Medications Pregabalin (Lyrica) 50 Mg Cap, 1 CAP PO BID, #60 CAP 08/15/24 Insulin Lispro (Humalog Kwikpen) 100 Unit/Ml Inj, 25 UNITS SC AC for 40 Days, #30 08/14/24 Aspirin (Aspirin Low Dose) 81 Mg Tab, 1 TAB PO DAILY for 90 Days, #90 08/14/24 Trazodone Hcl (Trazodone Hcl) 50 Mg Tab, 1 TAB PO QHSP PRN for PSYCHOPHYSIOLOGIC INSOMNIA for 30 Days, #30 08/14/24 Furosemide (Furosemide) 20 Mg Tab, 1 TAB PO BID for 90 Days, #180 08/14/24 Hydroxyzine Hcl (Hydroxyzine Hcl) 25 Mg Tab, 1 TAB PO DAILY for 30 Days, #30 08/14/24 Linaclotide Base (LINZESS) 145 Mcg Cap, 1 CAP PO DAILY for 30 Days, #30 08/14/24 Nitroglycerin (NTROSTAT SUBLINGUAL) 0.4 Mg Sl, 0.4 MG SL PRN, TAB *MAY REPEAT EVERY 5 MINUTES X 3 TOTAL IF NO RELIEF, INITIATE ANALGESIC THERAPY. NOTIFY PHYSICIAN *Do not crush. 12/25/23 Tramadol Hcl (Tramadol Hcl) 50 Mg Tab, 50 MG PO, TAB 12/25/23 Discontinued Scripts Metoclopramide Hcl (Metoclopramide Hcl) 10 Mg Tab, 10 MG PO BID for 4 Days, #15 TAB 0 Refills Prov:CAROLINA OVALLE MD 08/23/24 Hydrocodone-Acetaminophen (Hydrocodone Bitartrate/AC 5-325 mg) 1 Tab Tab, 1 TAB PO Q8HPRN PRN for 7 Days, #21 TAB Prov:MARY BOSCH MD 08/15/24 Sennosides-Docusate Sodium (Senokot S) 1 Tab Tab, 1 TAB PO BID for 14 Days, #30 TAB 0 Refills Prov:CAROLINA OVALLE MD 08/02/24 Polyethylene Glycol 3350 (Goodsense Clearlax) 17 Gm/Scoop Pow, 17 GM PO DAILY for 10 Days, #17.9 POW 0 Refills Prov:CAROLINA OVALLE MD 08/02/24 Sucralfate (CARAFATE SUSP) 1 Gm/10 Ml Ss, 10 ML PO BID for 30 Days, #600 ML 0 Refills Prov:CAROLINA OVALLE MD 08/02/24 Dicyclomine Hcl (BENTYL CAPSULE) 10 Mg Cp, 1 CAP PO Q6HPRN PRN, #30 CAP 0 Refills Prov:CAROLINA OVALLE MD 08/02/24 Current Medications Current Medications Medications (Trade) Dose Ordered Sig/Jorge Route PRN Reason Start Time Stop Time Status Last Admin Nitroglycerin 250 ml @ 1.5 mls/hr Q24H IV 09/01/24 17:00 09/01/24 17:35 Hydralazine HCl (Apresoline Injection) 10 mg Q6HP PRN IV SBP>150 09/01/24 19:30 09/02/24 13:36 Aspirin 81 mg DAILY PO 09/02/24 10:00 09/02/24 10:23 Carvedilol (Coreg Tablet) 6.25 mg Q12HR PO 09/01/24 22:00 09/02/24 09:08 DC 09/01/24 21:57 Furosemide (Lasix Tablet) 20 mg BIDD PO 09/02/24 06:00 09/02/24 09:08 DC 09/02/24 06:35 Lisinopril (Zestril Tablet) 40 mg DAILY PO 09/02/24 10:00 09/02/24 10:24 Acetaminophen/ Hydrocodone Bitart ([place] 5/325MG Tab) 1 tab Q4HP PRN PO MODERATE PAIN (4-6 PAIN SCALE) 09/01/24 19:30 09/02/24 11:18 Temazepam (Restoril) 15 mg QHSP PRN PO FOR INSOMNIA 09/01/24 19:30 09/02/24 11:00 DC 09/01/24 22:04 Ondansetron HCl (Zofran) 4 mg Q4HP PRN IV NAUSEA / VOMITING 09/01/24 19:30 09/01/24 20:49 Acetaminophen (Tylenol Tablet) 650 mg Q6HP PRN PO PAIN SCALE 1-3 OR TEMP>100.4 09/01/24 19:30 09/01/24 21:26 Nitroglycerin (Ntrostat Sublingual) 0.4 mg Q5MINP PRN SL FOR CHEST PAIN 09/01/24 19:30 Cancel Morphine Sulfate 2 mg Q30M PRN IV FOR CHEST PAIN 09/01/24 19:30 09/02/24 10:56 DC 09/02/24 07:48 Nitroglycerin (Ntrostat Sublingual) 0.4 mg Q5MINP PRN SL FOR CHEST PAIN 09/01/24 19:30 09/02/24 10:56 DC Morphine Sulfate 2 mg Q30M PRN IV FOR CHEST PAIN 09/01/24 19:30 Cancel Carvedilol (Coreg Tablet) 25 mg Q12HR PO 09/02/24 10:00 09/02/24 10:24 Spironolactone (Aldactone) 25 mg DAILY PO 09/03/24 10:00 Empaglifozin (Jardiance) 10 mg DAILY PO 09/03/24 10:00 Morphine Sulfate 4 mg Q4HPRN PRN IV SEVERE PAIN (7-10 PAIN SCALE) 09/02/24 13:45 Cancel Hydromorphone HCl (Dilaudid Injection) 1 mg Q3HPRN PRN IV SEVERE PAIN (7-10 PAIN SCALE) 09/02/24 15:00 Vital Signs Vital Signs Date Time Temp Pulse Resp B/P (MAP) Pulse Ox O2 Delivery O2 Flow Rate FiO2 09/02/24 13:57 105 18 163/100 09/02/24 13:00 96 09/02/24 12:00 98.3 98.3 09/02/24 10:00 Room Air* 0 21 Labs/Diagnostic Data Labs Test 09/02/24 03:15 09/02/24 01:55 09/01/24 19:30 09/01/24 18:09 Range/Units Sodium Level 143 136-145 mmol/L Potassium Level 3.4 L 3.5-5.1 mmol/L Chloride Level 105 98-107 mmol/L Carbon Dioxide Level 30 20-31 mmol/L Anion Gap 8 5-15 Blood Urea Nitrogen 9 9-23 mg/dL Creatinine 0.99 0.700-1.30 mg/dL Glomerular Filtration Rate Calc 93 >90 mL/min BUN/Creatinine Ratio 9.1 L 10.0-20.0 Serum Glucose 167 H 74-106 mg/dL Calcium Level 9.0 8.7-10.4 mg/dL POC Glucose 152 H 70-106 mg/dl Urine Color Yellow Yellow Urine Clarity Clear Clear Urine pH 6.0 5.0-9.0 Urine Specific [place] 1.030 1.001-1.035 Urine Protein Negative Negative Urine Ketones Negative Negative Urine Blood Negative Negative /uL Urine Nitrite Negative Negative Urine Bilirubin Negative Negative Urine Urobilinogen Normal Negative mg/dL Urine Leukocyte Esterase Negative Negative /uL Urine RBC 1 0 - 3 /hpf Urine Microscopic WBC 1 0-3 /HPF Urine Squamous Epithelial Cells Few <5 /hpf Urine Bacteria None seen None Seen /hpf Urine Mucus Few None Seen Urine Glucose 4+ H Normal mg/dL Troponin I High Sensitivity 6 </=54 ng/L Test 09/01/24 15:06 Range/Units White Blood Count 8.9 4.4-10.8 10^3/uL Red Blood Count 4.78 4.5-5.90 10^6/uL Hemoglobin 14.6 13.5-17.5 g/dL Hematocrit 40.9 L 41.0-53.0 % Mean Corpuscular Volume 85.7 80.0-100.0 fL Mean Corpuscular Hemoglobin 30.5 28.0-32.0 pg Mean Corpuscular Hemoglobin Concent 35.7 32.0-36.0 g/dL Red Cell Distribution Width 14.7 H 11.8-14.3 % Platelet Count 253 140-450 10^3/uL Mean Platelet Volume 8.5 6.9-10.8 fL Neutrophils (%) (Auto) 70.5 37.0-80.0 % Lymphocytes (%) (Auto) 18.8 10.0-50.0 % Monocytes (%) (Auto) 7.8 0.0-12.0 % Eosinophils (%) (Auto) 2.2 0.0-7.0 % Basophils (%) (Auto) 0.7 0.0-2.0 % Neutrophils # (Auto) 6.3 1.6-8.6 10 ^3/uL Lymphocytes # (Auto) 1.7 0.4-5.4 10 ^3/uL Monocytes # (Auto) 0.7 0-1.3 10 ^3/uL Eosinophils # (Auto) 0.2 0-0.8 10 ^3/uL Basophils # (Auto) 0.1 0-0.2 10 ^3/uL Nucleated Red Blood Cells 0.1 % Assessment [id number] c/o LUQ SWELLING PAIN AFEBRILE VSS ABD SOFT NON ACUTE REDUCIBLE LEFT UPPER ABD VENTRAL HERNIA BM + FLATUS + CT SCAN ABD PELVIS WITH PO CONTRAST ICE PACK ABD BINDER CONTINUE CLOSE OBSERVATION AND CONSIDER EMERGENT /ELECTIVE SURGERY BASED ON ONGOING EVAL NURSE AT BEDSIDE Plan discussed with: Patient SHAQUILLE WATSON MD Sep 02, 2024 14:13
--- NOTE | 2024-09-02 16:04 | DVHINCON2 ---
DATE OF CONSULTATION: 09/02/2024 HISTORY OF PRESENT ILLNESS: This patient is 49 years old coming in with left upper abdominal pain, now feeling better. Some nausea. No vomiting. No constipation or diarrhea. He was constipated earlier. For the last few days, he has been having regular bowel activity and he is passing flatus as well. No hematemesis or melena. No bleeding per rectum. PAST MEDICAL HISTORY: Hypertension, CHF, CAD. PAST SURGICAL HISTORY: Nothing significant. PHYSICAL EXAMINATION: VITAL SIGNS: Afebrile. Stable signs with no evidence of pallor, cyanosis, or jaundice. NECK: Supple and nontender with no thyromegaly or lymphadenopathy. CHEST AND LUNGS: Clear. HEART: Within normal limits. ABDOMEN: Soft. He is minimally tender in the left upper abdomen with a small bulge that is easily reducible. Does not appear to have clinically any incarcerated or strangulated left upper quadrant abdominal wall hernia. Ultrasound is indicating a possibility of a hernia, but at this point it seems to be reduced, but his abdominal pain is ongoing, but otherwise the abdomen examination does not have any acute abdomen. NEUROLOGIC: Not assessed. EXTREMITIES: Unremarkable. CLINICAL IMPRESSION: Reduced left upper quadrant abdominal wall hernia and bowel ischemia is not ruled out. PLAN: Repeat the CT scan of the abdomen and pelvis with p.o. contrast and continue close observation and consider emergent or elective surgery based upon ongoing evaluation. MD EUSEBIA Blevins/LISANDRA/YANIV TID: [id number] RECEIPT: [id number] cc:
--- NOTE | 2024-09-02 17:15 | DVH ---
Indication: Left upper quadrant hernia with loop of bowel Technique: CT axial images of the abdomen and pelvis are obtained with intravenous contrast. Coronal and sagittal reformats were obtained. Radiation Dose Information: CTDI volume is 22.12 mGy. Dose-length product is 1151.52 mGy*cm Comparison: CT CT AB PEL WITH IV CON ONLY on DOS: 08/13/24, CT CT AB PEL WITH IV CON ONLY on DOS: 07/21 FINDINGS: Lung bases demonstrate atelectasis. Adrenal glands, spleen, pancreas unremarkable. Hepatic steatosis. No CT evidence for cholelithiasis. There is no hydronephrosis. Stomach is partially distended. Small bowel loops are normal in caliber. Moderate volume stool in the colon. Normal appendix. Abdominal aorta normal in caliber. Bladder distended. No free pelvic fluid. No inguinal lymphadenopat hy. [id number] bilateral sacroiliac degenerative joint disease. Moderate to advanced lumbar degener ative disc disease L4-5 and L5-S1. IMPRESSION: Moderate volume stool within the colon. Hepatic steatosis. Other findings as described.
[2024-09-02] MEDS: HYDROmorphone HCL 2 MG/ML VL/or syr IV PRN (17:20)
[2024-09-02] MEDS: IOHEXOL 300 MG/ML 100ML BOTTLE IJ ONE (17:50)
[2024-09-02] MEDS: SODIUM CHLORIDE 0.9% 1,000 ML IV SCH (18:54)
[2024-09-02] MEDS: CARVEDILOL 12.5 MG TAB PO ONE (22:34)
[2024-09-03 06:07] LABS: Chloride 104 mmol/L (98-107); Potassium 3.9 mmol/L (3.5-5.1); Sodium 143 mmol/L (136-145)
[2024-09-03 06:08] LABS: Anion Gap 9 (5-15); Calcium 10.0 mg/dL (8.7-10.4); Carbon Dioxide 30 mmol/L (20-31)
[2024-09-03 06:13] LABS: BUN/Creatinine Ratio 12.4 (10.0-20.0); Blood Urea Nitrogen 11 mg/dL (9-23)
[2024-09-03 06:22] LABS: Glucose 134 mg/dL (74-106)
[2024-09-03] MEDS: CARVEDILOL 3.125 MG TAB PO SCH (06:49)
[2024-09-03 07:05] LABS: Hematocrit 43.1 % (41.0-53.0); Hemoglobin 15.2 g/dL (13.5-17.5); Mean Corpuscular Hemoglobin 30.4 pg (28.0-32.0); Mean Corpuscular Volume 86.4 fL (80.0-100.0); Nucleated Red Blood Cells % 0.1 %
[2024-09-03 08:00] VITALS: PULSE 81; RESP 21; O2SAT 95
--- NOTE | 2024-09-03 09:59 | DVHPN2 ---
Progress Note Date Seen: Sep 03, 2024 Medical Necessity Reason Pt with a Central, PICC or Fol: No Objective vital signs Vital Sign Date Time Temp Pulse Resp B/P (MAP) Pulse Ox O2 Delivery O2 Flow Rate FiO2 09/03/24 09:16 100 152/87 09/03/24 09:15 16 09/03/24 08:00 98.1 95 98.1 09/03/24 08:00 Room Air* 0 21 Total Intake and Output 09/02/24 09/02/24 09/03/24 15:00 23:00 07:00 Intake Total 18.00 ml 300 ml 225 ml Output Total 750 ml Balance 18.00 ml -450 ml 225 ml medications Current Medications Medications Dose Ordered Sig/Jorge Route Start Time Stop Time Status Last Admin Dose Admin Hydralazine HCl 10 mg Q6HP PRN IV 09/01/24 19:30 09/02/24 13:36 10 MG Aspirin 81 mg DAILY PO 09/02/24 10:00 09/02/24 10:23 81 MG Lisinopril 40 mg DAILY PO 09/02/24 10:00 09/02/24 10:24 40 MG Acetaminophen/ Hydrocodone Bitart 1 tab Q4HP PRN PO 09/01/24 19:30 09/02/24 11:18 1 TAB Ondansetron HCl 4 mg Q4HP PRN IV 09/01/24 19:30 09/03/24 03:45 4 MG Acetaminophen 650 mg Q6HP PRN PO 09/01/24 19:30 09/01/24 21:26 650 MG Nitroglycerin 0.4 mg Q5MINP PRN SL 09/01/24 19:30 Cancel Morphine Sulfate 2 mg Q30M PRN IV 09/01/24 19:30 Cancel Spironolactone 25 mg DAILY PO 09/03/24 10:00 Empaglifozin 10 mg DAILY PO 09/03/24 10:00 Morphine Sulfate 4 mg Q4HPRN PRN IV 09/02/24 13:45 Cancel Hydromorphone HCl 1 mg Q3HPRN PRN IV 09/02/24 15:00 09/03/24 06:59 1 MG Sodium Chloride 1,000 ml @ 75 mls/hr [id number] IV 09/02/24 18:45 09/03/24 09:17 75 MLS/HR Carvedilol 6.25 mg Q12HR PO 09/03/24 06:45 09/03/24 06:49 6.25 MG laboratory and microbiology Laboratory Tests 09/03/24 06:29 09/03/24 05:00 Test 09/03/24 05:00 Range/Units Serum Glucose 134 H 74-106 mg/dL Problem List/Assessment/Plan Problem List/Assessment/Plan aAFEBRILE VSS ABD SOFT LUQ PAIN SWELLING R/O MUSCLE TEAR R/O INCARCERATED LUQ VENTRAL HERNIA NO ECCHYMOSIS CONSTIPATION MAG CITRATE CONSIDER EMERGENT SURGERY BASED ON ONGOING EVAL NURSE AND FAMILY AT BEDSIDE Plan discussed with: Patient SHAUQILLE WATSON MD Sep 03, 2024 09:59
[2024-09-03] MEDS: SPIRONOLACTONE 25 MG TAB PO SCH (10:17)
[2024-09-03] MEDS: EMPAGLIFLOZIN 10 MG TAB PO SCH (10:17)
[2024-09-03 10:50] VITALS: BP 158/107; PULSE 103; RESP 20; TEMP 97.9; O2SAT 96
[2024-09-03] MEDS: MAGNESIUM CITRATE SOLUTION 300 ML BTL PO ONE (11:18)
--- NOTE | 2024-09-03 16:40 | DVHPNRES ---
Progress Note Date Seen: Sep 03, 2024 Resident Creating Document: FARRAH DEL TORO RESIDENT Has the PT tested + for MRSA If YES, has PT been informed?: No Medical Necessity Reason Pt with a Central, PICC or Fol: No Subjective Review of Systems Patient is a 49-year-old male past medical history of diabetes, dyslipidemia, hypertension, CHF and CAD initially presented with thin soft chest pain which was squeezing and pressure-like, nonradiating, no aggravating or relieving factors. patient states that his symptoms were all ongoing for the past 1 day and when he came to the ED his hypertension was 206/136 but has no signs of end organ damage. He reported feeling dizzy and having a syncopal episode with loss of consciousness, but did not report any trauma to the head. Patient seen at bedside. Patient still complains of abdominal pain on palpation, he had 5 episodes of vomiting overnight. He reports he is passing gas but not stool, and does not have hematemesis, headache, dizziness. Surgery on board. Objective vital signs Vital Sign Date Time Temp Pulse Resp B/P (MAP) Pulse Ox O2 Delivery O2 Flow Rate FiO2 09/03/24 16:06 96 16 173/105 09/03/24 11:22 Room Air* 0 21 09/03/24 10:00 95 09/03/24 08:00 98.1 98.1 Total Intake and Output 09/02/24 09/02/24 09/03/24 15:00 23:00 07:00 Intake Total 18.00 ml 300 ml 225 ml Output Total 750 ml Balance 18.00 ml -450 ml 225 ml medications Current Medications Medications Dose Ordered Sig/Jorge Route Start Time Stop Time Status Last Admin Dose Admin Hydralazine HCl 10 mg Q6HP PRN IV 09/01/24 19:30 09/03/24 16:05 10 MG Aspirin 81 mg DAILY PO 09/02/24 10:00 09/03/24 10:17 81 MG Lisinopril 40 mg DAILY PO 09/02/24 10:00 09/03/24 10:18 40 MG Acetaminophen/ Hydrocodone Bitart 1 tab Q4HP PRN PO 09/01/24 19:30 09/02/24 11:18 1 TAB Ondansetron HCl 4 mg Q4HP PRN IV 09/01/24 19:30 09/03/24 16:04 4 MG Acetaminophen 650 mg Q6HP PRN PO 09/01/24 19:30 09/01/24 21:26 650 MG Nitroglycerin 0.4 mg Q5MINP PRN SL 09/01/24 19:30 Cancel Morphine Sulfate 2 mg Q30M PRN IV 09/01/24 19:30 Cancel Spironolactone 25 mg DAILY PO 09/03/24 10:00 09/03/24 10:17 25 MG Empaglifozin 10 mg DAILY PO 09/03/24 10:00 09/03/24 10:17 10 MG Morphine Sulfate 4 mg Q4HPRN PRN IV 09/02/24 13:45 Cancel Hydromorphone HCl 1 mg Q3HPRN PRN IV 09/02/24 15:00 09/03/24 16:06 1 MG Sodium Chloride 1,000 ml @ 75 mls/hr [id number] IV 09/02/24 18:45 09/03/24 09:17 75 MLS/HR Carvedilol 6.25 mg Q12HR PO 09/03/24 06:45 09/03/24 06:49 6.25 MG Examination General: Patient alert and oriented in person, place and time. Patient following commands. HEENT: Normocephalic, atraumatic, moist mucous membranes Respiratory/pulmonary: Clear lungs bilaterally, vesicular murmurs present in almost all lung warren, no associated crackles or wheezes. Cardiovascular: Normal heart sounds S1 and S2 with no associated murmurs Abdomen: there is pain to palpation in Left Upper Quadrant, Left Palpable Mass Extremities: There is no peripheral edema present at the lower extremities. Peripheral Pulses: 3+ Radial (R). 3+ Radial (L). 3+ Dorsalis pedis (R). 3+ Dorsalis pedis(L) Skin: No rashes or pruritus, there is no sacral edema present at this time. Neurological: Intact cranial nerves with no focal neurologic deficits laboratory and microbiology Laboratory Tests 09/03/24 06:29 09/03/24 05:00 Test 09/03/24 05:00 Range/Units Serum Glucose 134 H 74-106 mg/dL Problem List/Assessment/Plan Problem List/Assessment/Plan # Hypertensive emergency # Chest pain likely non-cardiac in the setting of hypertensive emergency plan: Nitroglycerin drip given IV labetalol once Coreg, lisinopril, IV hydralazine as needed Continuous monitoring of blood pressure Cardiology on board, advised titrate off NTG drip accordingly, stopped patient downgraded # Left upper quadrant hernia containing loop of bowel, -USG showed There is left upper quadrant hernia containing loop of bowel. - Sx consulted, advised CT abs/pel with contrast showed -Moderate volume stool within the colon and Hepatic steatosis. -Surgery evaluating and recommended emergency surgery if needed on ongoing evaluation. #syncope CT head- showed no Acute changes # Non-ischemic cardiomyopathy. # Chronic compensated HFrEF, NYHA Class II # Dyslipidemia Cardiology Was consulted, A recent transthoracic echocardiogram revealed an LVEF of 30-35%. GDMT for HFrEF # Poor medical compliance/drug seeking behavior -consult regarding importance of adherence of medications explained about risks and benefits GI prophylaxis: Not indicated now VTE prophylaxis: Ambulatory Goals of care discussed with the patient for more than 27 minutes: full code status Case discussed with Dr. Bosch Plan discussed with: Patient Date of Service: Sep 03, 2024 Billing Provider: MARY BOSCH MD Common Visit Codes: [id number] INP/OBS CARE(HIGH) FARRAH DEL TORO RESIDENT Sep 03, 2024 16:40 MARY BOSCH MD Sep 03, 2024 20:33
[2024-09-03 17:00] VITALS: BP 144/81; PULSE 106; RESP 19; TEMP 97.9; O2SAT 95
[2024-09-03 20:00] VITALS: PULSE 97
[2024-09-03 21:00] VITALS: BP 14/79; PULSE 99; RESP 18; TEMP 98; O2SAT 97
[2024-09-04] VITALS (7 sets, daily range): BP systolic 134–155; BP diastolic 60–95; PULSE 85–96; RESP 18; TEMP 98–98.4; O2SAT 94–96
[2024-09-04 08:57] LABS: Anion Gap 8 (5-15); Carbon Dioxide 30 mmol/L (20-31); Chloride 105 mmol/L (98-107); Potassium 3.8 mmol/L (3.5-5.1); Sodium 143 mmol/L (136-145)
[2024-09-04 08:58] LABS: Calcium 9.6 mg/dL (8.7-10.4)
[2024-09-04 09:03] LABS: BUN/Creatinine Ratio 13.4 (10.0-20.0); Blood Urea Nitrogen 11 mg/dL (9-23)
[2024-09-04 09:06] LABS: Glucose 108 mg/dL (74-106)
--- NOTE | 2024-09-04 10:48 | DVHPN2 ---
Progress Note Date Seen: Sep 04, 2024 Has the PT tested + for MRSA If YES, has PT been informed?: No Medical Necessity Reason Pt with a Central, PICC or Fol: No Objective vital signs Vital Sign Date Time Temp Pulse Resp B/P (MAP) Pulse Ox O2 Delivery O2 Flow Rate FiO2 09/04/24 10:34 98 20 143/66 09/04/24 09:12 98.0 94 98.0 09/04/24 08:00 Room Air* 0 21 Total Intake and Output 09/03/24 09/03/24 09/04/24 15:00 23:00 07:00 Intake Total 550 ml 575 ml Balance 550 ml 575 ml medications Current Medications Medications Dose Ordered Sig/Jorge Route Start Time Stop Time Status Last Admin Dose Admin Hydralazine HCl 10 mg Q6HP PRN IV 09/01/24 19:30 09/04/24 00:09 10 MG Aspirin 81 mg DAILY PO 09/02/24 10:00 09/04/24 09:11 81 MG Lisinopril 40 mg DAILY PO 09/02/24 10:00 09/04/24 09:13 40 MG Acetaminophen/ Hydrocodone Bitart 1 tab Q4HP PRN PO 09/01/24 19:30 09/02/24 11:18 1 TAB Ondansetron HCl 4 mg Q4HP PRN IV 09/01/24 19:30 09/04/24 06:37 4 MG Acetaminophen 650 mg Q6HP PRN PO 09/01/24 19:30 09/01/24 21:26 650 MG Nitroglycerin 0.4 mg Q5MINP PRN SL 09/01/24 19:30 Cancel Morphine Sulfate 2 mg Q30M PRN IV 09/01/24 19:30 Cancel Spironolactone 25 mg DAILY PO 09/03/24 10:00 09/04/24 09:13 25 MG Empaglifozin 10 mg DAILY PO 09/03/24 10:00 09/04/24 09:13 10 MG Morphine Sulfate 4 mg Q4HPRN PRN IV 09/02/24 13:45 Cancel Hydromorphone HCl 1 mg Q3HPRN PRN IV 09/02/24 15:00 09/04/24 10:34 1 MG Sodium Chloride 1,000 ml @ 75 mls/hr [id number] IV 09/02/24 18:45 09/04/24 09:18 75 MLS/HR Carvedilol 6.25 mg Q12HR PO 09/03/24 06:45 09/04/24 09:12 6.25 MG laboratory and microbiology Laboratory Tests 09/04/24 07:58 Test 09/04/24 07:58 Range/Units Serum Glucose 108 H 74-106 mg/dL Problem List/Assessment/Plan Problem List/Assessment/Plan AFEBRILE VSS ABD SOFT LUQ PAIN SWELLING R/O MUSCLE TEAR CONSTIPATION RESOLVED DIARRHEA R/O COLITIS ADVANCE DIET AURE CONSIDER EMERGENT SURGERY BASED ON ONGOING EVAL NURSE AT BEDSIDE Plan discussed with: Patient My Orders My Orders Orders - SHAQUILLE WATSON MD Procedure Category Date Status Time Complete Blood Count LAB 09/04/24 Logged 07:45 Comprehensive LAB 09/04/24 Logged Metabolic Panel 07:45 SHAQUILLE WATSON MD Sep 04, 2024 10:48
[2024-09-04 10:59] LABS: Hematocrit 39.3 % (41.0-53.0); Hemoglobin 13.9 g/dL (13.5-17.5); Mean Corpuscular Hemoglobin 30.6 pg (28.0-32.0); Mean Corpuscular Volume 86.3 fL (80.0-100.0); Nucleated Red Blood Cells % 0.1 %
[2024-09-04 11:26] LABS: Alanine Aminotransferase 29 U/L (7-40); Albumin 4.3 g/dL (3.2-4.8); Alkaline Phosphatase 76 U/L (46-116); Anion Gap 10 (5-15); BUN/Creatinine Ratio 13.3 (10.0-20.0); Bilirubin, Total 0.7 mg/dL (0.2-1.0); Blood Urea Nitrogen 11 mg/dL (9-23); Calcium 9.6 mg/dL (8.7-10.4); Carbon Dioxide 28 mmol/L (20-31); Chloride 106 mmol/L (98-107); Potassium 3.9 mmol/L (3.5-5.1); Sodium 144 mmol/L (136-145); Total Protein 6.9 g/dL (5.7-8.2)
[2024-09-04 11:27] LABS: Glucose 107 mg/dL (74-106)
--- NOTE | 2024-09-04 14:13 | DVHINCON2 ---
Consultation - Spinal Surgery Date Seen: Sep 04, 2024 Referring Physician Referring Physician Attending Doctor: Jordin Farrell Resident Reason for Consultation Reason for Visit: Chest pain. LBP History of Present Illness History of Present Illness History of Present Illness 49-year-old male initially presented with complaints of chest pain. He states his symptoms have been ongoing for the past one day. On arrival patient was noted to be hypertensive to 206/136. He also reported feeling dizzy and having a questionable syncopal episode. Currently denies chest pain, headache or blurred vision. Patient has had sciatica and low back pain in the past after an accident 20 years ago when he was lifting heavy objects at work, occupational therapy sent him to physical therapy which resolved his pain at that time he has had no surgeries he has had no further physical therapy or pain management to his lumbar spine for those complaints he had 20 years ago. Patient states that he is not having back pain he has no radiculopathies he has no difficulty ambulating no nerve pain no numbness no tingling no weakness to his legs he is only complaining of left abdominal and flank area pain. Past Medical/Surgical History Past Medical/Surgical History Past Medical History Dyslipidemia, hypertension, CHF, CAD Past Surgical History Denies Family History Noncontributory Family and Social History Family and Social History none contributory to case Allergies and medications Allergies: Coded Allergies: No Known Drug Allergy (Verified Allergy, Unknown, 12/24/23) Home Meds Active Scripts Lisinopril (Lisinopril) 40 Mg Tab, 1 TAB PO DAILY, #30 TAB 1 Refill Prov:CAROLINA OVALLE MD 08/23/24 Carvedilol (Carvedilol) 6.25 Mg Tab, 1 TAB PO BID, #60 TAB 1 Refill Prov:CAROLINA OVALLE MD 08/23/24 Duloxetine Hcl (Cymbalta) 20 Mg Cap, 1 CAP PO DAILY for 30 Days, #30 CAP Prov:ALE HARRIS 08/15/24 Pantoprazole Sodium Sesquihydr (Protonix) 40 Mg Tab, 40 MG PO DAILY for 30 Days, #30 TAB 1 Refill Prov:CAROLINA OVALLE MD 08/02/24 Insulin Glargine (Lantus) 100 Unit/Ml Inj, 35 UNITS SC BID@1000,2200 for 30 Days, #1 INJ Prov:CORRINE GRAHAM RESIDENT 12/28/23 Ergocalciferol (VITAMIN D 99209 UNIT) 50,000 [place], [address] UNIT PO Q7D for 30 Days, #30 CAP Prov:CORRINE GRAHAM RESIDENT 12/28/23 Reported Medications Pregabalin (Lyrica) 50 Mg Cap, 1 CAP PO BID, #60 CAP 08/15/24 Insulin Lispro (Humalog Kwikpen) 100 Unit/Ml Inj, 25 UNITS SC AC for 40 Days, #30 08/14/24 Aspirin (Aspirin Low Dose) 81 Mg Tab, 1 TAB PO DAILY for 90 Days, #90 08/14/24 Trazodone Hcl (Trazodone Hcl) 50 Mg Tab, 1 TAB PO QHSP PRN for PSYCHOPHYSIOLOGIC INSOMNIA for 30 Days, #30 08/14/24 Furosemide (Furosemide) 20 Mg Tab, 1 TAB PO BID for 90 Days, #180 08/14/24 Hydroxyzine Hcl (Hydroxyzine Hcl) 25 Mg Tab, 1 TAB PO DAILY for 30 Days, #30 08/14/24 Linaclotide Base (LINZESS) 145 Mcg Cap, 1 CAP PO DAILY for 30 Days, #30 08/14/24 Nitroglycerin (NTROSTAT SUBLINGUAL) 0.4 Mg Sl, 0.4 MG SL PRN, TAB *MAY REPEAT EVERY 5 MINUTES X 3 TOTAL IF NO RELIEF, INITIATE ANALGESIC THERAPY. NOTIFY PHYSICIAN *Do not crush. 12/25/23 Tramadol Hcl (Tramadol Hcl) 50 Mg Tab, 50 MG PO, TAB 12/25/23 Discontinued Scripts Metoclopramide Hcl (Metoclopramide Hcl) 10 Mg Tab, 10 MG PO BID for 4 Days, #15 TAB 0 Refills Prov:CAROLINA OVALLE MD 08/23/24 Hydrocodone-Acetaminophen (Hydrocodone Bitartrate/AC 5-325 mg) 1 Tab Tab, 1 TAB PO Q8HPRN PRN for 7 Days, #21 TAB Prov:MARY BOSCH MD 08/15/24 Sennosides-Docusate Sodium (Senokot S) 1 Tab Tab, 1 TAB PO BID for 14 Days, #30 TAB 0 Refills Prov:CAROLINA OVALLE MD 08/02/24 Polyethylene Glycol 3350 (Goodsense Clearlax) 17 Gm/Scoop Pow, 17 GM PO DAILY for 10 Days, #17.9 POW 0 Refills Prov:CAROLINA OVALLE MD 08/02/24 Sucralfate (CARAFATE SUSP) 1 Gm/10 Ml Ss, 10 ML PO BID for 30 Days, #600 ML 0 Refills Prov:CAROLINA OVALLE MD 08/02/24 Dicyclomine Hcl (BENTYL CAPSULE) 10 Mg Cp, 1 CAP PO Q6HPRN PRN, #30 CAP 0 Refills Prov:CAROLINA OVALLE MD 08/02/24 Review of systems Review of Systems: HEENT:Normal, CVS:Normal, RESPIRATORY:Normal, GI:Abnormal (Patient is experiencing left-sided abdominal pain/flank pain.), :Normal, MSK:Normal, NEURO:Normal Examination Vital signs imaging: PROCEDURE(s): MSL - LUMBAR SPINE WO CONTRAST REASON: Severe left upper quadrant pain ORDER NUMBER(s): [id number], ACCESSION NUMBER(s): [id number] PROCEDURE: MRI LUMBAR SPINE WO CONTRAST Indication: Severe left upper quadrant pain COMPARISON: MRI LUMBAR SPINE WO CONTRAST on DOS: 08/14/24 TECHNIQUE: Multiplanar multisequence images of the the lumbar spine are obtained. FINDINGS: For the purpose of this examination, there are 5 lumbar vertebral body types counting from the lumbosacral junction. Lumbar vertebral body heights are maintained. Moderate multilevel disc space narrowing and desiccation most pronounced at L4-5 and L5-S1.2 mm retrolisthesis of L4 upon L5. 3 mm retrolisthesis L4 upon L5. Prominent anterior osteophytes at L5-S1. The conus terminates at the level of the L1 vertebral body level. Fatty endplate changes at L5-S1. T12-L1: No disc protrusion. Mild facet and flavum hypertrophy. No spinal canal, neural foraminal stenosis. L1-2: 1 mm disc protrusion. Mild facet and flavum hypertrophy. No spinal canal stenosis. No neural foraminal stenosis. L2-3: 2 mm disc protrusion. [id number]-[id number] facet and flavum hypertrophy. No spinal canal stenosis. Mild bilateral neural foraminal stenosis. L3-4: 2 mm disc protrusion. Jhek-cr-jrjxqzrp facet and flavum hypertrophy. No spinal canal stenosis. Moderate bilateral neural foraminal stenosis. L4-5: 4 mm disc protrusion. Moderate facet and flavumm hypertrophy. Thecal sac measures 7 mm AP. Moderate spinal canal stenosis. Severe bilateral neural foraminal stenosis. L5-S1: 3 mm disc osteophyte complex. Moderate facet and flavum hypertrophy. Thecal sac measures 11 mm AP. No spinal canal stenosis. Severe bilateral neural foraminal stenosis IMPRESSION: Moderate lumbar degenerative disc disease most pronounced at L4-5 and L5-S1 Moderate spinal canal stenosis L4-5. Severe neural foraminal stenosis L4-5 and L5-S1. Vital Signs Date Time Temp Pulse Resp B/P (MAP) Pulse Ox O2 Delivery O2 Flow Rate FiO2 09/04/24 13:48 98.2 95 18 155/95 (115) 96 98.2 09/04/24 08:00 Room Air* 0 21 Laboratory Labs Test 09/04/24 07:58 09/04/24 07:45 09/02/24 01:55 09/01/24 19:30 Range/Units Sodium Level 143 136-145 mmol/L Potassium Level 3.8 3.5-5.1 mmol/L Chloride Level 105 98-107 mmol/L Carbon Dioxide Level 30 20-31 mmol/L Anion Gap 8 5-15 Blood Urea Nitrogen 11 9-23 mg/dL Creatinine 0.82 0.700-1.30 mg/dL Glomerular Filtration Rate Calc 108 >90 mL/min BUN/Creatinine Ratio 13.4 10.0-20.0 Serum Glucose 108 H 74-106 mg/dL Calcium Level 9.6 8.7-10.4 mg/dL White Blood Count 8.0 4.4-10.8 10^3/uL Red Blood Count 4.56 4.5-5.90 10^6/uL Hemoglobin 13.9 13.5-17.5 g/dL Hematocrit 39.3 L 41.0-53.0 % Mean Corpuscular Volume 86.3 80.0-100.0 fL Mean Corpuscular Hemoglobin 30.6 28.0-32.0 pg Mean Corpuscular Hemoglobin Concent 35.5 32.0-36.0 g/dL Red Cell Distribution Width 15.1 H 11.8-14.3 % Platelet Count 259 140-450 10^3/uL Mean Platelet Volume 8.6 6.9-10.8 fL Neutrophils (%) (Auto) 64.1 37.0-80.0 % Lymphocytes (%) (Auto) 20.4 10.0-50.0 % Monocytes (%) (Auto) 12.5 H 0.0-12.0 % Eosinophils (%) (Auto) 2.4 0.0-7.0 % Basophils (%) (Auto) 0.6 0.0-2.0 % Neutrophils # (Auto) 5.1 1.6-8.6 10 ^3/uL Lymphocytes # (Auto) 1.6 0.4-5.4 10 ^3/uL Monocytes # (Auto) 1.0 0-1.3 10 ^3/uL Eosinophils # (Auto) 0.2 0-0.8 10 ^3/uL Basophils # (Auto) 0 0-0.2 10 ^3/uL Nucleated Red Blood Cells 0.1 % Total Bilirubin 0.7 0.2-1.0 mg/dL Aspartate Amino Transferase (AST) 31 13-40 U/L Alanine Aminotransferase (ALT) 29 7-40 U/L Alkaline Phosphatase 76 46-116 U/L Total Protein 6.9 5.7-8.2 g/dL Albumin 4.3 3.2-4.8 g/dL POC Glucose 152 H 70-106 mg/dl Urine Color Yellow Yellow Urine Clarity Clear Clear Urine pH 6.0 5.0-9.0 Urine Specific Cecil 1.030 1.001-1.035 Urine Protein Negative Negative Urine Ketones Negative Negative Urine Blood Negative Negative /uL Urine Nitrite Negative Negative Urine Bilirubin Negative Negative Urine Urobilinogen Normal Negative mg/dL Urine Leukocyte Esterase Negative Negative /uL Urine RBC 1 0 - 3 /hpf Urine Microscopic WBC 1 0-3 /HPF Urine Squamous Epithelial Cells Few <5 /hpf Urine Bacteria None seen None Seen /hpf Urine Mucus Few None Seen Urine Glucose 4+ H Normal mg/dL Test 09/01/24 18:09 Range/Units Troponin I High Sensitivity 6 </=54 ng/L Examination: GENERAL:Normal, HEENT:Normal, NECK:Normal, LUNGS:Normal, CVS:Normal, ABDOMEN:Abnormal (Left-sided abdominal and flank pain), SKIN:Normal, NEURO:Normal Problem List/Assessment/Plan Problems: (1) Upper abdominal pain Assessment and Plan Patient is experiencing left side abdominal pain/flank pain he is having no back pain he has no nerve pain he has no lumbar radiculopathies he has no trouble walking ambulating bending twisting. Patient does have findings to his radiologic studies and is currently going for an MRI. He is found to have lumbar degenerative disc disease and L4-5 and L5-S1 however the patient states that he is not having any back or leg pain. Patient stated he has had back issues in the past, however he is only abdominal and flank pain to the left side. MRI findings will be discussed with patient. Spine surgery will sign off patient has no spine related complaints Further care and management per admitting team's discretion No barriers to discharge from a spine surgery perspective Call with questions Jitendra Orlando [facility] Orthopaedic Spine Surgery nurse practitioner For Dr Mariela Lewis Patient was examined, chart reviewed, labs evaluated, and diagnostic studies and findings analyzed. Case was discussed with Dr. Bao Lewis who formulated the plan of care. This medical document was created using an electronic medical record system with [employer] dictation system. Although this document has been carefully reviewed, there might still be some phonetic and typographical errors. These areas are purely typographical due to imperfections of the software programs, and do not reflect any compromise in the patient's medical care. Plan discussed with Plan discussed with: Patient DANIELLE ORLANDO NP Sep 04, 2024 14:12
[2024-09-04] MEDS: GADOTERATE MEG 10 MMOL/20ml INJ (0.5MMOL/ml) IV ONE (14:52)
[2024-09-04] MEDS: KETOROLAC TROMETH 30 MG/ML 1ML VIAL IV PRN (15:27)
--- NOTE | 2024-09-04 16:03 | DVHPNRES ---
Progress Note Date Seen: Sep 04, 2024 Resident Creating Document: FARRAH DEL TORO RESIDENT Has the PT tested + for MRSA If YES, has PT been informed?: No Medical Necessity Reason Pt with a Central, PICC or Fol: No Subjective Review of Systems Patient is a 49-year-old male past medical history of diabetes, dyslipidemia, hypertension, CHF and CAD initially presented with thin soft chest pain which was squeezing and pressure-like, nonradiating, no aggravating or relieving factors. patient states that his symptoms were all ongoing for the past 1 day and when he came to the ED his hypertension was 206/136 but has no signs of end organ damage. He reported feeling dizzy and having a syncopal episode with loss of consciousness, but did not report any trauma to the head. Patient seen at bedside. Patient is still complaining of upper abdominal pain, 3 episodes of vomiting, diarrhea, denies dizziness, headache. Patient was switched to clear liquid diet. Surgery on board. Spine surgeon was consulted, and MRI spine ordered. Objective vital signs Vital Sign Date Time Temp Pulse Resp B/P (MAP) Pulse Ox O2 Delivery O2 Flow Rate FiO2 09/04/24 13:48 98.2 95 18 155/95 (115) 96 98.2 09/04/24 08:00 Room Air* 0 21 Total Intake and Output 09/03/24 09/03/24 09/04/24 15:00 23:00 07:00 Intake Total 550 ml 575 ml Balance 550 ml 575 ml medications Current Medications Medications Dose Ordered Sig/Jorge Route Start Time Stop Time Status Last Admin Dose Admin Hydralazine HCl 10 mg Q6HP PRN IV 09/01/24 19:30 09/04/24 00:09 10 MG Aspirin 81 mg DAILY PO 09/02/24 10:00 09/04/24 09:11 81 MG Lisinopril 40 mg DAILY PO 09/02/24 10:00 09/04/24 09:13 40 MG Acetaminophen/ Hydrocodone Bitart 1 tab Q4HP PRN PO 09/01/24 19:30 09/02/24 11:18 1 TAB Ondansetron HCl 4 mg Q4HP PRN IV 09/01/24 19:30 09/04/24 06:37 4 MG Acetaminophen 650 mg Q6HP PRN PO 09/01/24 19:30 09/01/24 21:26 650 MG Nitroglycerin 0.4 mg Q5MINP PRN SL 09/01/24 19:30 Cancel Morphine Sulfate 2 mg Q30M PRN IV 09/01/24 19:30 Cancel Spironolactone 25 mg DAILY PO 09/03/24 10:00 09/04/24 09:13 25 MG Empaglifozin 10 mg DAILY PO 09/03/24 10:00 09/04/24 09:13 10 MG Morphine Sulfate 4 mg Q4HPRN PRN IV 09/02/24 13:45 Cancel Hydromorphone HCl 1 mg Q3HPRN PRN IV 09/02/24 15:00 09/04/24 10:34 1 MG Carvedilol 6.25 mg Q12HR PO 09/03/24 06:45 09/04/24 09:12 6.25 MG Ketorolac Tromethamine 30 mg Q6HPRN PRN IV 09/04/24 14:30 09/09/24 14:29 09/04/24 15:27 30 MG Examination General: Patient alert and oriented in person, place and time. Patient following commands. HEENT: Normocephalic, atraumatic, moist mucous membranes Respiratory/pulmonary: Clear lungs bilaterally, vesicular murmurs present in almost all lung warren, no associated crackles or wheezes. Cardiovascular: Normal heart sounds S1 and S2 with no associated murmurs Abdomen: Abdomen nondistended, there is pain to palpation in Left upper Quadrant, Left sided mas Extremities: There is no peripheral edema present at the lower extremities. Peripheral Pulses: 3+ Radial (R). 3+ Radial (L). 3+ Dorsalis pedis (R). 3+ Dorsalis pedis(L) Skin: No rashes or pruritus, there is no sacral edema present at this time. Neurological: Intact cranial nerves with no focal neurologic deficits laboratory and microbiology Laboratory Tests 09/04/24 07:58 09/04/24 07:45 Test 09/04/24 07:58 Range/Units Serum Glucose 108 H 74-106 mg/dL Problem List/Assessment/Plan Problem List/Assessment/Plan # Hypertensive emergency # Chest pain likely non-cardiac in the setting of hypertensive emergency plan: controlled IV labetalol once Coreg, lisinopril, IV hydralazine as needed Continuous monitoring of blood pressure Cardiology on board, advised titrate off NTG drip accordingly, stopped patient downgraded # Left upper quadrant hernia containing loop of bowel, -USG showed There is left upper quadrant hernia containing loop of bowel. - Sx consulted, advised CT abs/pel with contrast showed -Moderate volume stool within the colon and Hepatic steatosis. -Surgery evaluating and recommended emergency surgery if needed on ongoing evaluation. -diet changed to clear liquid diet -spine surgery was consulted and MRI spine pending #syncope likely due to hypertension emergency Ruled out cardiac cause CT head- showed no Acute changes # Non-ischemic cardiomyopathy. # Chronic compensated HFrEF, NYHA Class II # Dyslipidemia Cardiology Was consulted, A recent transthoracic echocardiogram revealed an LVEF of 30-35%. GDMT for HFrEF # Poor medical compliance/drug seeking behavior -consult regarding importance of adherence of medications explained about risks and benefits GI prophylaxis: Not indicated now VTE prophylaxis: Ambulatory Goals of care discussed with the patient for more than 23 minutes: full code status Case discussed with Dr. Bosch Plan discussed with: Patient Date of Service: Sep 04, 2024 Billing Provider: MARY BOSCH MD Common Visit Codes: [id number] INP/OBS CARE(HIGH) FARRAH DEL TORO RESIDENT Sep 04, 2024 16:03 MARY BOSCH MD Sep 10, 2024 16:13
--- NOTE | 2024-09-04 16:42 | DVH ---
PROCEDURE: MRI LUMBAR SPINE WO CONTRAST Indication: Severe left upper quadrant pain COMPARISON: MRI LUMBAR SPINE WO CONTRAST on DOS: 08/14/24 TECHNIQUE: Multiplanar multisequence images of the the lumbar spine are obtained. FINDINGS: For the purpose of this examination, there are 5 lumbar vertebral body types counting from the lumbos acral junction. Lumbar vertebral body heights are maintained. Moderate multilevel disc space narrowing and desiccati on most pronounced at L4-5 and L5-S1.2 mm retrolisthesis of L4 upon L5. 3 mm retrolisthesis L4 upon L 5. Prominent anterior osteophytes at L5-S1. The conus terminates at the level of the L1 vertebral body level. Fatty endplate changes at L5-S1. T12-L1: No disc protrusion. Mild facet and flavum hypertrophy. No spinal canal, neural foraminal robel nosis. L1-2: 1 mm disc protrusion. Mild facet and flavum hypertrophy. No spinal canal stenosis. No neural foraminal stenosis. L2-3: 2 mm disc protrusion. [id number] facet and flavum hypertrophy. No spinal canal stenosis. Mild bilateral neural foraminal stenosis. L3-4: 2 mm disc protrusion. Ctln-hu-hipwhdih facet and flavum hypertrophy. No spinal canal stenosis. Moderate bilateral neural foraminal stenosis. L4-5: 4 mm disc protrusion. Moderate facet and flavumm hypertrophy. Thecal sac measures 7 mm AP. Mo derate spinal canal stenosis. Severe bilateral neural foraminal stenosis. L5-S1: 3 mm disc osteophyte complex. Moderate facet and flavum hypertrophy. Thecal sac measures 11 mm AP. No spinal canal stenosis. Severe bilateral neural foraminal stenosis IMPRESSION: Moderate lumbar degenerative disc disease most pronounced at L4-5 and L5-S1 Moderate spinal canal stenosis L4-5. Severe neural foraminal stenosis L4-5 and L5-S1.
--- NOTE | 2024-09-04 18:33 | DVH ---
MRI Abdomen, with and without IV Contrast Exam Date: 09/04/2024 03:51 PM Comparison: None History: Severe left upper quadrant pain Technique: Multisequence multiplanar MRI images were obtained of the abomen. 20 mL of clariscan was administered intravenously during this examination. Initial imaging is obtain ed without intravenous contrast. Findings: Liver: The liver is normal in size without focal lesions. Normal liver contour. Spleen: Unremarkable. Pancreas: The pancreas is normal in appearance without focal lesions. Gallbladder and ducts: Gallbladder is normal in appearance. The cystic duct, right and left hepatic ducts, common hepatic duct, and common bile ducts are unremarkable. The pancreatic duct is within n ormal limits. Adrenal glands: Unremarkable. Kidneys: Normal enhancement without suspicious lesions or hydronephrosis. Visualized bowel: Grossly unremarkable. Vasculature: Unremarkable. Lymphadenopathy: No evidence for lymphadenopathy. Ascites: Absent. Musculoskeletal: Bone marrow signal is normal. IMPRESSION: 1. Unremarkable MRI of the abdomen. HS:Octavio
[2024-09-04] MEDS: CARVEDILOL 3.125 MG TAB PO SCH (22:00)
[2024-09-05 01:00] VITALS: BP 140/58; PULSE 80; RESP 18; TEMP 98; O2SAT 96
[2024-09-05 05:00] VITALS: BP 179/110; PULSE 91; RESP 18; TEMP 98.8; O2SAT 96
[2024-09-05 08:00] VITALS: PULSE 90
[2024-09-05 09:00] VITALS: BP 182/103; PULSE 62; RESP 20; TEMP 99.3; O2SAT 99
[2024-09-05] MEDS: LISINOPRIL 20 MG TAB PO SCH (10:00)
[2024-09-05] MEDS: Duloxetine Hcl (Cymbalta) 20MG CAPSULE PO SCH (10:00)
--- NOTE | 2024-09-05 10:31 | DVHPN2 ---
Progress Note Date Seen: Sep 05, 2024 Has the PT tested + for MRSA If YES, has PT been informed?: No Medical Necessity Reason Pt with a Central, PICC or Fol: No Objective vital signs Vital Sign Date Time Temp Pulse Resp B/P (MAP) Pulse Ox O2 Delivery O2 Flow Rate FiO2 09/05/24 09:06 82 182/103 09/05/24 09:05 20 09/05/24 09:00 99.3 99 99.3 09/04/24 20:00 Room Air* 0 21 medications Current Medications Medications Dose Ordered Sig/Jorge Route Start Time Stop Time Status Last Admin Dose Admin Hydralazine HCl 10 mg Q6HP PRN IV 09/01/24 19:30 09/05/24 09:03 10 MG Aspirin 81 mg DAILY PO 09/02/24 10:00 09/05/24 09:06 81 MG Lisinopril 40 mg DAILY PO 09/02/24 10:00 09/05/24 09:05 40 MG Acetaminophen/ Hydrocodone Bitart 1 tab Q4HP PRN PO 09/01/24 19:30 09/02/24 11:18 1 TAB Ondansetron HCl 4 mg Q4HP PRN IV 09/01/24 19:30 09/05/24 09:03 4 MG Acetaminophen 650 mg Q6HP PRN PO 09/01/24 19:30 09/01/24 21:26 650 MG Nitroglycerin 0.4 mg Q5MINP PRN SL 09/01/24 19:30 Cancel Morphine Sulfate 2 mg Q30M PRN IV 09/01/24 19:30 Cancel Spironolactone 25 mg DAILY PO 09/03/24 10:00 09/05/24 09:06 25 MG Empaglifozin 10 mg DAILY PO 09/03/24 10:00 09/05/24 09:06 10 MG Morphine Sulfate 4 mg Q4HPRN PRN IV 09/02/24 13:45 Cancel Hydromorphone HCl 1 mg Q3HPRN PRN IV 09/02/24 15:00 09/05/24 09:05 1 MG Carvedilol 6.25 mg Q12HR PO 09/03/24 06:45 09/05/24 09:06 6.25 MG Ketorolac Tromethamine 30 mg Q6HPRN PRN IV 09/04/24 14:30 09/09/24 14:29 09/04/24 15:27 30 MG Carvedilol 6.25 mg BID PO 09/04/24 22:00 Patient Own Medication 1 cap DAILY PO 09/05/24 10:00 Lisinopril 40 mg DAILY PO 09/05/24 10:00 laboratory and microbiology Laboratory Tests 09/04/24 07:58 09/04/24 07:45 Test 09/04/24 07:58 Range/Units Serum Glucose 108 H 74-106 mg/dL Problem List/Assessment/Plan Problem List/Assessment/Plan AFEBRILE VSS ABD SOFT LUQ PAIN SWELLING R/O MUSCLE TEAR CONSTIPATION R/O PARTIAL SBO GASTROGRAFIN STUDY SMALL BOWEL FOLLOW THROUGH CONSIDER EMERGENT SURGERY BASED ON ONGOING EVAL NURSE AT BEDSIDE Plan discussed with: Patient My Orders My Orders Orders - SHAQUILLE WATSON MD Procedure Category Date Status Time Soft Diet DIET 09/04/24 Transmitted Lunch SHAQUILLE WATSON MD Sep 05, 2024 10:31
--- NOTE | 2024-09-05 11:26 | DVHPNRES ---
Progress Note Date Seen: Sep 05, 2024 Resident Creating Document: FARRAH DEL TORO RESIDENT Has the PT tested + for MRSA If YES, has PT been informed?: No Medical Necessity Reason Pt with a Central, PICC or Fol: No Subjective Review of Systems Patient is a 49-year-old male past medical history of diabetes, dyslipidemia, hypertension, CHF and CAD initially presented with thin soft chest pain which was squeezing and pressure-like, nonradiating, no aggravating or relieving factors. patient states that his symptoms were all ongoing for the past 1 day and when he came to the ED his hypertension was 206/136 but has no signs of end organ damage. He reported feeling dizzy and having a syncopal episode with loss of consciousness, but did not report any trauma to the head. Patient seen at bedside, Today his blood pressure was elevated 182/103. Patient reports left upper quadrant abdominal pain, headache and nausea. Patient is able to eat, and today denies any vomiting Today and overnight, and he had a regular bowel movement last night. Patient is on clear liquid diet, surgery is on board, CT Abdomen and Lumbar spine was done. Spine surgery cleared patient. Objective vital signs Vital Sign Date Time Temp Pulse Resp B/P (MAP) Pulse Ox O2 Delivery O2 Flow Rate FiO2 09/05/24 09:06 82 182/103 09/05/24 09:05 20 09/05/24 09:00 99.3 99 99.3 09/04/24 20:00 Room Air* 0 21 medications Current Medications Medications Dose Ordered Sig/Jorge Route Start Time Stop Time Status Last Admin Dose Admin Aspirin 81 mg DAILY PO 09/02/24 10:00 09/05/24 09:06 81 MG Lisinopril 40 mg DAILY PO 09/02/24 10:00 09/05/24 09:05 40 MG Acetaminophen/ Hydrocodone Bitart 1 tab Q4HP PRN PO 09/01/24 19:30 09/02/24 11:18 1 TAB Ondansetron HCl 4 mg Q4HP PRN IV 09/01/24 19:30 09/05/24 09:03 4 MG Acetaminophen 650 mg Q6HP PRN PO 09/01/24 19:30 09/01/24 21:26 650 MG Nitroglycerin 0.4 mg Q5MINP PRN SL 09/01/24 19:30 Cancel Morphine Sulfate 2 mg Q30M PRN IV 09/01/24 19:30 Cancel Spironolactone 25 mg DAILY PO 09/03/24 10:00 09/05/24 09:06 25 MG Empaglifozin 10 mg DAILY PO 09/03/24 10:00 09/05/24 09:06 10 MG Morphine Sulfate 4 mg Q4HPRN PRN IV 09/02/24 13:45 Cancel Hydromorphone HCl 1 mg Q3HPRN PRN IV 09/02/24 15:00 09/05/24 09:05 1 MG Carvedilol 6.25 mg Q12HR PO 09/03/24 06:45 09/05/24 09:06 6.25 MG Ketorolac Tromethamine 30 mg Q6HPRN PRN IV 09/04/24 14:30 09/09/24 14:29 09/04/24 15:27 30 MG Carvedilol 6.25 mg BID PO 09/04/24 22:00 Patient Own Medication 1 cap DAILY PO 09/05/24 10:00 Lisinopril 40 mg DAILY PO 09/05/24 10:00 Nifedipine 60 mg DAILY PO 09/06/24 10:00 Examination General: Patient alert and oriented in person, place and time. Patient following commands. HEENT: Normocephalic, atraumatic, moist mucous membranes Respiratory/pulmonary: Clear lungs bilaterally, vesicular murmurs present in almost all lung warren, no associated crackles or wheezes. Cardiovascular: Normal heart sounds S1 and S2 with no associated murmurs Abdomen: Abdomen nondistended, Abdomen nondistended, there is pain to palpation in Left upper Quadrant, Left sided mass Extremities: There is no peripheral edema present at the lower extremities. Peripheral Pulses: 3+ Radial (R). 3+ Radial (L). 3+ Dorsalis pedis (R). 3+ Dorsalis pedis(L) Skin: No rashes or pruritus, there is no sacral edema present at this time. 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 # Chronic compensated HFrEF, NYHA Class II # Dyslipidemia plan: controlled IV labetalol once Coreg, lisinopril, IV hydralazine as needed Continuous monitoring of blood pressure Cardiology on board, advised titrate off NTG drip accordingly, stopped patient downgraded Cardiology Was consulted, A recent transthoracic echocardiogram revealed an LVEF of 30-35%. GDMT for HFrEF # Left upper quadrant hernia containing loop of bowel, -USG showed There is left upper quadrant hernia containing loop of bowel. - Sx consulted, advised CT ab/pel with contrast showed -Moderate volume stool within the colon and Hepatic steatosis. -Surgery evaluating and recommended emergency surgery if needed on ongoing evaluation. Dr. Knutson was consulted for second opinion -diet changed to clear liquid diet - Dr. Roger advised to consult spine surgeon; spine surgeon evaluated the patient indicating no need for surgical intervention -lumbar MRI showed : Moderate lumbar degenerative disc disease most pronounced at L4-5 and L5-S1, Moderate spinal canal stenosis L4-5, Severe neural foraminal stenosis L4-5 and L5-S1. - Unremarkable MRI of the abdomen. #syncope likely due to hypertension emergency # Ruled out cardiac cause CT head- showed no Acute changes # Poor medical compliance/drug seeking behavior -consult regarding importance of adherence of medications explained about risks and benefits GI prophylaxis: Not indicated now VTE prophylaxis: Ambulatory Goals of care discussed with the patient for 20 minutes: full code status Case discussed with Dr. Wei Plan discussed with: Patient, Other (RN) My Orders My Orders Orders - FARRAH DEL TORO RESIDENT Procedure Category Date Status Time Carvedilol Tablet PHA 09/04/24 In Process (Coreg Tablet) 22:00 (Nf) Duloxetine Hcl PHA 09/05/24 In Process (Cymbalta) 10:00 Lisinopril Tablet PHA 09/05/24 In Process (Zestril Tablet) 10:00 Communication Order ORDERS 09/04/24 Transmitted 16:49 Addendum Addendum Addendum I was physically present for the centeno portions of the service provided to patient by THE RESIDENT. I have reviewed the documentation, discussed the case with resident and agree with the resident's documentation except as noted. Also the patient's clinical case was discussed with the patient's nurse. This medical document was created using an electronic medical record system with computerized dictation system. Although this document has been carefully reviewed, there might still be some phonetic and typographical errors. These areas are purely typographical due to imperfections of the software programs, and do not reflect any compromise in the patient's medical care. Late signature. Date of Service: Sep 05, 2024 Billing Provider: TERESA WEI MD Common Visit Codes: 50103-[id number] INP/OBS CARE(HIGH) Secondary Visit Codes: 73597-NOUVCHHJ CARE PLAN 30 MINUTES (20 minutes) FARRAH DEL TORO Sep 05, 2024 11:26 TERESA WEI MD Sep 06, 2024 05:14
[2024-09-05 13:00] VITALS: BP 165/72; PULSE 94; RESP 18; TEMP 98.6; O2SAT 96
[2024-09-05 17:06] VITALS: BP 189/109; PULSE 94; RESP 18; TEMP 98.1; O2SAT 99
--- NOTE | 2024-09-06 10:59 | DVHDSRES ---
Discharge Summary Date of Admission Resident Creating Document: FARRAH DEL TORO Sep 01, 2024 at 19:26 Date of Discharge: Sep 05, 2024 Admitting Diagnosis Squeezing chest pain Labs/Diagnostic Data: Laboratory Results Test 09/04/24 07:58 09/04/24 07:45 09/02/24 01:55 09/01/24 19:30 Sodium Level 143 mmol/L (136-145) Potassium Level 3.8 mmol/L (3.5-5.1) Chloride Level 105 mmol/L (98-107) Carbon Dioxide Level 30 mmol/L (20-31) Anion Gap 8 (5-15) Blood Urea Nitrogen 11 mg/dL (9-23) Creatinine 0.82 mg/dL (0.700-1.30) Glomerular Filtration Rate Calc 108 mL/min (>90) BUN/Creatinine Ratio 13.4 (10.0-20.0) Serum Glucose 108 mg/dL (74-106) Calcium Level 9.6 mg/dL (8.7-10.4) White Blood Count 8.0 10^3/uL (4.4-10.8) Red Blood Count 4.56 10^6/uL (4.5-5.90) Hemoglobin 13.9 g/dL (13.5-17.5) Hematocrit 39.3 % (41.0-53.0) Mean Corpuscular Volume 86.3 fL (80.0-100.0) Mean Corpuscular Hemoglobin 30.6 pg (28.0-32.0) Mean Corpuscular Hemoglobin Concent 35.5 g/dL (32.0-36.0) Red Cell Distribution Width 15.1 % (11.8-14.3) Platelet Count 259 10^3/uL (140-450) Mean Platelet Volume 8.6 fL (6.9-10.8) Neutrophils (%) (Auto) 64.1 % (37.0-80.0) Lymphocytes (%) (Auto) 20.4 % (10.0-50.0) Monocytes (%) (Auto) 12.5 % (0.0-12.0) Eosinophils (%) (Auto) 2.4 % (0.0-7.0) Basophils (%) (Auto) 0.6 % (0.0-2.0) Neutrophils # (Auto) 5.1 10 ^3/uL (1.6-8.6) Lymphocytes # (Auto) 1.6 10 ^3/uL (0.4-5.4) Monocytes # (Auto) 1.0 10 ^3/uL (0-1.3) Eosinophils # (Auto) 0.2 10 ^3/uL (0-0.8) Basophils # (Auto) 0 10 ^3/uL (0-0.2) Nucleated Red Blood Cells 0.1 % Total Bilirubin 0.7 mg/dL (0.2-1.0) Aspartate Amino Transferase (AST) 31 U/L (13-40) Alanine Aminotransferase (ALT) 29 U/L (7-40) Alkaline Phosphatase 76 U/L (46-116) Total Protein 6.9 g/dL (5.7-8.2) Albumin 4.3 g/dL (3.2-4.8) POC Glucose 152 mg/dl (70-106) Urine Color Yellow (Yellow) Urine Clarity Clear (Clear) Urine pH 6.0 (5.0-9.0) Urine Specific [place] 1.030 (1.001-1.035) Urine Protein Negative (Negative) Urine Ketones Negative (Negative) Urine Blood Negative /uL (Negative) Urine Nitrite Negative (Negative) Urine Bilirubin Negative (Negative) Urine Urobilinogen Normal mg/dL (Negative) Urine Leukocyte Esterase Negative /uL (Negative) Urine RBC 1 /hpf (0 - 3) Urine Microscopic WBC 1 /HPF (0-3) Urine Squamous Epithelial Cells Few /hpf (<5) Urine Bacteria None seen /hpf (None Seen) Urine Mucus Few (None Seen) Urine Glucose 4+ mg/dL (Normal) Test 09/01/24 18:09 Troponin I High Sensitivity 6 ng/L (</=54) Other Laboratory Tests 09/04/24 07:58 09/04/24 07:45 Brief Hx & Hospital Course: Patient is a 49-year-old male past medical history of diabetes, dyslipidemia, hypertension, CHF and CAD initially presented with thin soft chest pain which was squeezing and pressure-like, nonradiating, no aggravating or relieving factors. Patient states that his symptoms were all ongoing for the past 1 day and when he came to the ED his hypertension was 206/136 but has no signs of end organ damage. He reported feeling dizzy and having a syncopal episode with loss of consciousness, but did not report any trauma to the head. Brief History of hospital course: Patient came with hypertensive urgency with blood pressure 206/136, chest pain likely noncardiac in setting of hypertensive emergency. Patient was given IV labetalol, Coreg, lisinopril, IV hydralazine as needed, and continuous monitoring of blood pressure. Cardiology was on board and advised to try to of nitroglycerin drip accordingly findings. A recent echo revealed LVEF of 30-35%. GDMT for HFrEF. For nonischemic cardiomyopathy and dyslipidemia patient was counseled to continue home meds. For Left upper quadrant pain surgery was consulted and advised CT abdomen pelvis with contrast which showed moderate volume of stool within the colon and hepatic steatosis. Surgery evaluating and recommended emergency surgery if needed on ongoing evaluation. Dr. Roger advised to consult spine surgeon, they evaluated the patient and indicated no need for surgical intervention. Patient was on nifedipine, lisinopril, carvedilol, ketorolac, Jardiance, spironolactone, hydromorphone, aspirin, ondansetron, [place]. Lumbar MRI showed: Moderate lumbar degenerative disc disease most pronounced at L4-5 and L5-S1, Moderate spinal canal stenosis L4-5, Severe neural foraminal stenosis L4-5 and L5-S1. Unremarkable MRI of the abdomen.For syncope likely due to hypertensive emergency cardiac cause was ruled out, and head CT showed no acute changes. For full medical compliance and drug- seeking behavior patient was counseled regarding importance of adherence of medication and explained about risks and benefits. Patient states that he wanted to leave the hospital AMA. patient was encouraged to stay for treatment/stabilization once advised of risks of leaving but refused. Patient wanted Dilaudid and when another pain medication patient refused and stated he wanted only Dilaudid. Patient was informed leaving would worsen patient's condition, he might need possible emergency readmission. Patient strongly advised to return to the ED if worsening symptoms. The Patient demonstrated capacity to make medical decisions. AMA form was reviewed and signed by the patient. Physical examination documented in the progress note on the day of discharge. Discussed with Dr. Wei. Consults/Reason for consult Cardiology for chest pain; spine ortho for back pain; surgery for abdominal pain with LUQ swelling Operations or Procedures MRI Abdomen, with and without IV Contrast Exam Date: 09/04/2024 03:51 PM Comparison: None History: Severe left upper quadrant pain Technique: Multisequence multiplanar MRI images were obtained of the abomen. 20 mL of clariscan was administered intravenously during this examination. Initial imaging is obtained without intravenous contrast. Findings: Liver: The liver is normal in size without focal lesions. Normal liver contour. Spleen: Unremarkable. Pancreas: The pancreas is normal in appearance without focal lesions. Gallbladder and ducts: Gallbladder is normal in appearance. The cystic duct, right and left hepatic ducts, common hepatic duct, and common bile ducts are unremarkable. The pancreatic duct is within normal limits. Adrenal glands: Unremarkable. Kidneys: Normal enhancement without suspicious lesions or hydronephrosis. Visualized bowel: Grossly unremarkable. Vasculature: Unremarkable. Lymphadenopathy: No evidence for lymphadenopathy. Ascites: Absent. Musculoskeletal: Bone marrow signal is normal. IMPRESSION: 1. Unremarkable MRI of the abdomen. HS:Y. CT abdomen/ Pelvis Indication: Left upper quadrant hernia with loop of bowel Technique: CT axial images of the abdomen and pelvis are obtained with intravenous contrast. Coronal and sagittal reformats were obtained. Radiation Dose Information: CTDI volume is 22.12 mGy. Dose-length product is 1151.52 mGy*cm Comparison: CT CT AB PEL WITH IV CON ONLY on DOS: 08/13/24, CT CT AB PEL WITH IV CON ONLY on DOS: 07/21/24 FINDINGS: Lung bases demonstrate atelectasis. Adrenal glands, spleen, pancreas unremarkable. Hepatic steatosis. No CT evidence for cholelithiasis. There is no hydronephrosis. Stomach is partially distended. Small bowel loops are normal in caliber. Moderate volume stool in the colon. Normal appendix. Abdominal aorta normal in caliber. Bladder distended. No free pelvic fluid. No inguinal lymphadenopathy. [id number] bilateral sacroiliac degenerative joint disease. Moderate to advanced lumbar degenerative disc disease L4-5 and L5-S1. IMPRESSION: Moderate volume stool within the colon. Hepatic steatosis. Other findings as described. Exam: US ABDOMEN LIMITED Date: 09/02/2024 10:48 AM Clinical History: left side sided abdominal mass Comparison: None Findings: Targeted sonographic evaluation of the soft tissues of the left upper quadrant was obtained utilizing grayscale and color Doppler imaging. There is left upper quadrant hernia containing loop of bowel. IMPRESSION: There is left upper quadrant hernia containing loop of bowel. END IMPRESSION: EXAM: CT HEAD WITHOUT CONTRAST INDICATION: Syncope TECHNIQUE: CT of the head without intravenous contrast. Coronal and sagittal reformatted images are submitted. Radiation Dose : 1. Head: CT Dose: CTDI volume is 68.21 mGy. Dose-length product is 1343.95 mGy*cm The dose indicators for CT are the volume Computed Tomography (CT) Dose Index (CTDIvol) and the Dose Length Product (DLP), and are measured in units of mGy and mGy-cm, respectively. These indicators are not patient dose, but values generated from the CT scanner acquisition factors. The report includes radiation exposure data for exposures received during this examination. All CT scans at this medical facility are performed using dose modulation techniques as appropriate to a performed exam including the following: Automated exposure control was utilized; adjustment of the MA and/or KV according to patient size; and use of iterative reconstruction technique. COMPARISON: None FINDINGS: There is no evidence of acute intracranial hemorrhage, extra-axial collection, mass effect, midline shift, herniation or hydrocephalus. The ventricles, sulci and cisterns are age appropriate. The alas-white differentiation is intact. There is mucosal thickening in the bilateral maxillary sinuses. Maxillary sinuses are patent. No depressed calvarial fracture. The surrounding soft tissues are unremarkable. IMPRESSION: 1. No acute intracranial abnormality. EXAM: XY CHEST PORTABLE TECHNIQUE: Single frontal chest radiograph CLINICAL HISTORY: sob COMPARISON: XY CHEST PORTABLE on DOS: 08/30/24, XY CHEST PORTABLE on DOS: 08/13/24, XY CHEST PORTABLE on DOS: 08/02/24 Findings/Impression: Frontal chest radiograph demonstrates no acute osseous or superficial soft tissue abnormalities. The trachea is midline. Mild cardiomegaly. No pneumothorax, pleural effusions, or consolidations. Condition at Discharge: Undetermined (Left AMA) Final Diagnosis/Problems List # Hypertensive emergency # Chest pain likely non-cardiac in the setting of hypertensive emergency # Non-ischemic cardiomyopathy. # Chronic compensated HFrEF, NYHA Class II # Dyslipidemia # Left upper quadrant hernia containing loop of bowel, # syncope likely due to hypertension emergency # Ruled out cardiac cause # Poor medical compliance/drug seeking behavior Discharge Disposition: AMA Discharge Instruct/Medications Diet: See Comment Diet comment: Left AMA Activity: See Comment Activity comment: Left AMA Follow Up/Referral: Left AMA Medications: Left AMA Scheduled Aspirin (Aspirin Low Dose), 1 TAB PO DAILY, (Reported) Carvedilol (Carvedilol), 1 TAB PO BID Duloxetine Hcl (Cymbalta), 1 CAP PO DAILY Ergocalciferol (Vitamin D 72720 Unit), 50,000 UNIT PO Q7D Furosemide (Furosemide), 1 TAB PO BID, (Reported) Hydroxyzine Hcl (Hydroxyzine Hcl), 1 TAB PO DAILY, (Reported) Insulin Glargine (Lantus), 35 UNITS SC BID@1000,2200 Insulin Lispro (Humalog Kwikpen), 25 UNITS SC AC, (Reported) Linaclotide Base (Linzess), 1 CAP PO DAILY, (Reported) Lisinopril (Lisinopril), 1 TAB PO DAILY Nitroglycerin (Ntrostat Sublingual), 0.4 MG SL PRN, (Reported) Pantoprazole Sodium Sesquihydr (Protonix), 40 MG PO DAILY Pregabalin (Lyrica), 1 CAP PO BID, (Reported) Scheduled PRN Trazodone Hcl (Trazodone Hcl), 1 TAB PO QHSP PRN for PSYCHOPHYSIOLOGIC INSOMNIA, (Reported) Miscellaneous Medications Tramadol Hcl (Tramadol Hcl), 50 MG PO, (Reported) Discontinued Medications Dicyclomine Hcl (Bentyl Capsule), 1 CAP PO Q6HPRN PRN Hydrocodone-Acetaminophen (Hydrocodone Bitartrate/AC 5-325 mg), 1 TAB PO Q8HPRN PRN Metoclopramide Hcl (Metoclopramide Hcl), 10 MG PO BID Polyethylene Glycol 3350 (Goodsense Clearlax), 17 GM PO DAILY Sennosides-Docusate Sodium (Senokot S), 1 TAB PO BID Sucralfate (Carafate Susp), 10 ML PO BID Discharge Statement: "Patient was advised to return to the ER or call 911 if any headaches, dizziness, shortness of breath, chest pain, abdominal pain, bleeding, fevers, or worsening of medical condition. Patient was counseled about treatment plan, medications, possible side effects, patientverbalized understanding. All questions were answered to the best of my ability. This discharge took greater then 30 minutes in planning, reviewing documentation, counseling the patient, and discussing with other team members." ASSESSMENT ASSESSMENT Assessment Addendum Addendum Addendum I was physically present for the centeno portions of the service provided to patient by THE RESIDENT. I have reviewed the documentation, discussed the case with resident and agree with the resident's documentation except as noted. Also the patient's clinical case was discussed with the patient's nurse. This medical document was created using an electronic medical record system with computerized dictation system. Although this document has been carefully reviewed, there might still be some phonetic and typographical errors. These areas are purely typographical due to imperfections of the software programs, and do not reflect any compromise in the patient's medical care. Late signature. Date of Service: Sep 05, 2024 Billing Provider: TERESA WEI MD Common Visit Codes: 44621-MEP/OBS DISCH DAY >30min FARRAH DEL TORO Sep 06, 2024 10:59 TERESA WEI MD Sep 06, 2024 22:06
== END 2024-09-05 20:39 | disposition left against medical advice (07) | DRG 199 ==
LOC: ER 14:32 → OVERFLOW 19:26 → WEST WING 09-03 10:50 → TELE-WESTW 09-05 09:36
PROVIDERS: ADMIT Internal Medicine; ATTEND Internal Medicine
DX: I16.1 Hypertensive emergency (principal); I42.7 Cardiomyopathy due to drug and external agent; I50.22 Chronic systolic (congestive) heart failure; E66.01 Morbid (severe) obesity due to excess calories; I11.0 Hypertensive heart disease with heart failure; E11.9 Type 2 diabetes mellitus without complications; I42.8 Other cardiomyopathies; E78.5 Hyperlipidemia, unspecified; Z68.32 Body mass index [BMI] 32.0-32.9, adult; I25.10 Atherosclerotic heart disease of native coronary artery without angina pectoris; K43.9 Ventral hernia without obstruction or gangrene; M48.061 Spinal stenosis, lumbar region without neurogenic claudication; M51.369 Other intervertebral disc degeneration, lumbar region without mention of lumbar back pain or lower extremity pain; K76.0 Fatty (change of) liver, not elsewhere classified; M51.379 Other intervertebral disc degeneration, lumbosacral region without mention of lumbar back pain or lower extremity pain; T50.995A Adverse effect of other drugs, medicaments and biological substances, initial encounter; R07.89 Other chest pain; Z79.899 Other long term (current) drug therapy; Z79.82 Long term (current) use of aspirin; Y92.89 Other specified places as the place of occurrence of the external cause; Z76.5 Malingerer [conscious simulation]; Z80.7 Family history of other malignant neoplasms of lymphoid, hematopoietic and related tissues; Z91.148 Patient's other noncompliance with medication regimen for other reason; Z79.4 Long term (current) use of insulin
CPT/HCPCS: 36415; 70450; 71045; 72148; 74177; 74183; 76705; 80048; 80053; 81001; 82962; 84484; 85025; 93005; 96374; 96375; G0378; J1885; J2405

== ENCOUNTER 2024-09-22 22:52 | Inpatient (IN) | payer MEDICAID ==
[~2024-09-22] VITALS: Ht 170.2 cm; Wt 98.9 kg
[~2024-09-22 22:52] MED LIST changes: +CARV12.544 PO; +CHOLCAP10 PO; +CLON0.1T PO; +ERGO1CAP12 PO; +GABA-1250 PO; +IBUP-1455 PO; +INSUINJ37 SC; +METO10TA4 PO; +NIFE1TAB31 PO; +PANT40T PO; +POLYPOW89 PO; +SENN8.6T83 PO; +SILD20TA41 PO; +SUCR1SUS26 PO; +TIRZ7.5I SUBCUT
[2024-09-22] MEDS: SODIUM CHLORIDE 0.9% 1,000 ML IV ONE (23:30)
[2024-09-22 23:38] LABS: Hematocrit 42.0 % (41.0-53.0); Hemoglobin 15.2 g/dL (13.5-17.5); Mean Corpuscular Hemoglobin 31.3 pg (28.0-32.0); Mean Corpuscular Volume 86.4 fL (80.0-100.0); Nucleated Red Blood Cells % 0.0 %
--- NOTE | 2024-09-22 23:43 | ED.PDOC ---
History of Present Illness HPI Comments 49 y/o obese M presents with c/c chest pain, that radiates to LUQ abdominal region, with associated nausea, vomiting, and diarrhea. 1x day history of symptoms following unprovoked, atraumatic, and gradual onset. Pain is a 10/10 in severity and tight in quality. Denies any bloody of bilious vomitus, shortness of breath, palpitations, fever, chills, or further associated symptoms. Patient was noted to have been tachycardic and hypertensive upon arrival to ED triage. He also mentions on recent hospital discharge from [facility] 1x week ago for chronic GI issues. Patient's symptoms they were unable to elicit the cause of the patient's abdominal pain concerns. Significant history for CAD, CHF, DM, HLD, HTN, nonischemic cardiomyopathy, LUQ hernia, and poor medical compliance and drug seeking behavior. Chief Complaint: Chest Pain Time Seen by MD: 23:30 Primary Care Provider: ? Reviewed Notes: Nurses Notes, Medications, Allergies Allergies: Coded Allergies: No Known Drug Allergy (Verified Allergy, Unknown, 12/24/23) Home Meds Active Scripts Lisinopril (Lisinopril) 40 Mg Tab, 1 TAB PO DAILY, #30 TAB 1 Refill Prov:CAROLINA OVALLE MD 08/23/24 Carvedilol (Carvedilol) 6.25 Mg Tab, 1 TAB PO BID, #60 TAB 1 Refill Prov:CAROLINA OVALLE MD 08/23/24 Duloxetine Hcl (Cymbalta) 20 Mg Cap, 1 CAP PO DAILY for 30 Days, #30 CAP Prov:ALE HARRIS RESIDENT 08/15/24 Pantoprazole Sodium Sesquihydr (Protonix) 40 Mg Tab, 40 MG PO DAILY for 30 Days, #30 TAB 1 Refill Prov:CAROLINA OVALLE MD 08/02/24 Insulin Glargine (Lantus) 100 Unit/Ml Inj, 35 UNITS SC BID@1000,2200 for 30 Days, #1 INJ Prov:CORRINE GRAHAM RESIDENT 12/28/23 Ergocalciferol (VITAMIN D 72289 UNIT) 50,000 [place], [address] UNIT PO Q7D for 30 Days, #30 CAP Prov:CORRINE GRAHAM RESIDENT 12/28/23 Reported Medications Pregabalin (Lyrica) 50 Mg Cap, 1 CAP PO BID, #60 CAP 08/15/24 Insulin Lispro (Humalog Kwikpen) 100 Unit/Ml Inj, 25 UNITS SC AC for 40 Days, #30 08/14/24 Aspirin (Aspirin Low Dose) 81 Mg Tab, 1 TAB PO DAILY for 90 Days, #90 08/14/24 Trazodone Hcl (Trazodone Hcl) 50 Mg Tab, 1 TAB PO QHSP PRN for PSYCHOPHYSIOLOGIC INSOMNIA for 30 Days, #30 08/14/24 Furosemide (Furosemide) 20 Mg Tab, 1 TAB PO BID for 90 Days, #180 08/14/24 Hydroxyzine Hcl (Hydroxyzine Hcl) 25 Mg Tab, 1 TAB PO DAILY for 30 Days, #30 08/14/24 Linaclotide Base (LINZESS) 145 Mcg Cap, 1 CAP PO DAILY for 30 Days, #30 08/14/24 Nitroglycerin (NTROSTAT SUBLINGUAL) 0.4 Mg Sl, 0.4 MG SL PRN, TAB *MAY REPEAT EVERY 5 MINUTES X 3 TOTAL IF NO RELIEF, INITIATE ANALGESIC THERAPY. NOTIFY PHYSICIAN *Do not crush. 12/25/23 Tramadol Hcl (Tramadol Hcl) 50 Mg Tab, 50 MG PO, TAB 12/25/23 Information Source: Patient Mode of Arrival: Ambulatory Severity: Moderate Timing: Hours Duration: Since onset Prehospital treatment: None Past Medical History PAST MEDICAL HISTORY: CAD, CHF, DM, High Lipids, HTN Past Medical History (Other): Non-ischemic cardiomyopathy Left upper quadrant hernia containing loop of bowel Poor medical compliance/drug seeking behavior Surgical History: Denies all surgeries Family History Family History: Reviewed,noncontributory to illness Social History Smoker: Non-Smoker Alcohol: Denies ETOH Use Drugs: Denies Drug Use Lives In: Home Constitutional: reports: fatigue, weakness; denies: chills, diaphoresis, fever, malaise, sweats, others EENTM: denies: blurred vision, double vision, ear bleeding, ear discharge, ear drainage, ear pain, ear ringing, eye pain, eye redness, hearing loss, mouth pain, mouth swelling, nasal discharge, nose bleeding, nose congestion, nose pain, photophobia, tearing, throat pain, throat swelling, voice changes, others Respiratory: reports: shortness of breath; denies: cough, hemoptysis, orthopnea, SOB at rest, SOB with excertion, stridor, wheezing, others Cardiovascular: reports: chest pain; denies: dizzy spells, diaphoresis, Dyspnea on exertion, edema, irregular heart beat, left arm pain, lightheadedness, palpitations, PND, syncope, others Gastrointestinal: reports: abdominal pain; denies: abdomen distended, blood streaked bowels, constipated, diarrhea, dysphagia, difficulty swallowing, hematemesis, melena, nausea, poor appetite, poor fluid intake, rectal bleeding, rectal pain, vomiting, others Genitourinary: denies: burning, dysuria, flank pain, frequency, hematuria, incontinence, penile discharge, penile sore, pain, testicle pain, testicle swelling, urgency, others Neurological: denies: dizziness, fainting, headache, left sided numbness, left sided weakness, numbness, paresthesia, pre-existing deficit, right sided numbness, right sided weakness, seizure, speech problems, tingling, tremors, we akness, others Musculoskeletal: denies: back pain, gout, joint pain, joint swelling, muscle pain, muscle stiffness, neck pain, others Integumetry: denies: bruises, change in color, change in hair/nails, dryness, laceration, lesions, lumps, rash, wounds, others Allergic/Immunocompromised: denies: Difficulty Healing, Frequent Infections, Hives, Itching, others Hematologic/Lymphatic: denies: anemia, blood clots, easy bleeding, easy bruising, swollen glands, others Endocrine: denies: excessive hunger, excessive sweating, excessive thirst, excessive urination, flushing, intolerance to cold, intolerance to heat, unexplained weight gain, unexplained weight loss, others Psychiatric: denies: anxiety, bipolar disorder, depression, hopeless, panic disorder, schizophrenia, sleepless, suicidal, others All Other Systems: Reviewed and Negative (Comprehensive systems review obtained and negative except for what is stated in the HPI.) Physical Exam General Appearance: Moderate Distress (Moderate distress due to chest and abdominal pain concerns.), Obese HEENT: Normal ENT Inspection, Pharynx Normal, TMs Normal Neck: Full Range of Motion, Non-Tender, Normal, Normal Inspection Respiratory: Chest Non-Tender, Lungs Clear, No Accessory Muscle Use, No Respiratory Distress, Normal Breath Sounds Cardiovascular: No Edema, No JVD, No Murmur, No Gallop, Normal Peripheral Pulses, Tachycardia Breast Exam: Deferred Gastrointestinal: Other (Diffuse left-sided abdominal pain extending from the left upper quadrant and left lower quadrant. Difficult to assess due to body habitus. Patient states chronic condition.) Genitalia: Deferred Pelvic: Deferred Rectal: Deferred Extremities: No calf tenderness, Normal capillary refill, Normal inspection, Normal range of motion, Non-tender, No pedal edema Neurologic: Alert, No Motor Deficits, Normal Affect, Normal Mood, No Sensory Deficits Cerebellar Function: Normal Reflexes: Normal Skin: Dry, Normal Color, Warm Lymphatic: No Adenopathy Was a procedure done? Was a procedure done?: No EKG EKG : Pulse Rate (adult): 120 [place]: Normal Cardiac Rhythm: ST Block: None Hypertrophy: None ST: Normal Differential Dx Considerations may include: ID, PE, ACS, URI, PNA, angina, anxiety, among others X-Ray, Labs, Meds, VS Vital Signs Date Time Temp Pulse Resp B/P (MAP) Pulse Ox O2 Delivery O2 Flow Rate FiO2 09/22/24 23:43 120 09/22/24 23:15 99.8 118 18 171/132 (145) 95 99.8 09/22/24 23:07 120 Lab Test 09/23/24 00:00 09/22/24 23:40 09/22/24 23:13 Range/Units Troponin I High Sensitivity 8 8 </=54 ng/L Lactic Acid Level 2.1 *H 0.4-2.0 mmol/L White Blood Count 8.1 4.4-10.8 10^3/uL Red Blood Count 4.85 4.5-5.90 10^6/uL Hemoglobin 15.2 13.5-17.5 g/dL Hematocrit 42.0 41.0-53.0 % Mean Corpuscular Volume 86.4 80.0-100.0 fL Mean Corpuscular Hemoglobin 31.3 28.0-32.0 pg Mean Corpuscular Hemoglobin Concent 36.2 H 32.0-36.0 g/dL Red Cell Distribution Width 14.7 H 11.8-14.3 % Platelet Count 297 140-450 10^3/uL Mean Platelet Volume 8.1 6.9-10.8 fL Neutrophils (%) (Auto) 60.0 37.0-80.0 % Lymphocytes (%) (Auto) 26.6 10.0-50.0 % Monocytes (%) (Auto) 11.2 0.0-12.0 % Eosinophils (%) (Auto) 1.5 0.0-7.0 % Basophils (%) (Auto) 0.7 0.0-2.0 % Neutrophils # (Auto) 4.9 1.6-8.6 10 ^3/uL Lymphocytes # (Auto) 2.2 0.4-5.4 10 ^3/uL Monocytes # (Auto) 0.9 0-1.3 10 ^3/uL Eosinophils # (Auto) 0.1 0-0.8 10 ^3/uL Basophils # (Auto) 0.1 0-0.2 10 ^3/uL Nucleated Red Blood Cells 0.0 % Sodium Level 141 136-145 mmol/L Potassium Level 4.1 3.5-5.1 mmol/L Chloride Level 102 98-107 mmol/L Carbon Dioxide Level 28 20-31 mmol/L Anion Gap 11 5-15 Blood Urea Nitrogen 13 9-23 mg/dL Creatinine 0.90 0.700-1.30 mg/dL Glomerular Filtration Rate Calc 105 >90 mL/min BUN/Creatinine Ratio 14.4 10.0-20.0 Serum Glucose 149 H 74-106 mg/dL Calcium Level 10.5 H 8.7-10.4 mg/dL Total Bilirubin 0.8 0.2-1.0 mg/dL Aspartate Amino Transferase (AST) 37 13-40 U/L Alanine Aminotransferase (ALT) 40 7-40 U/L Alkaline Phosphatase 73 46-116 U/L Total Protein 7.5 5.7-8.2 g/dL Albumin 4.9 H 3.2-4.8 g/dL Lipase 28 12-53 U/L X-Ray, Labs, Meds, VS Comment All studies performed in the ED were evaluated doing personally. Serum studies were remarkable for a mildly elevated lactic acid. Urine was pending at time of this note. Concerning was the significant hypertensive emergency as the patient's blood pressure at arrival was 171/132. EKG revealed a sinus tachyca rdia with a rate of 120. Borderline intraventricular conduction delay was noted with the abnormal R-wave progression and late transition as well as repolarization abnormality suggesting ischemia in the lateral leads. AK interval of 142 and QT interval of 340. Patient will be admitted to manage his hypertensive emergent condition as well as cardiac evaluation of a questionable EKG. Time of 1ST Reevaluation: 02:04 Reevaluation 1ST: Improved Consultation: PCP, Cardiology, GI Patient Education/Counseling: Diagnosis, Treatment, Need For Follow Up Family Education/Counseling: Diagnosis, Treatment, No Family Present SEPSIS Sepsis Screen Recent Procedure: No On Antibiotic Therapy: No Respiratory Rate >20: No Heart Rate >90: Yes Temp<36 C (96.8 F) or >38.3 C: No SBP <90 or MAP <65 mmHG: No New Acute Mental Status Change: No Is the patient on CPAP, BIPAP,: No Physician Orders Electrocardigram (09/22/24 22:56) Electrocardigram (09/22/24 23:56) Electrocardigram (09/23/24 01:56) Troponin-I Hs (09/23/24 01:56) Sodium Chloride 0.9% (09/22/24 23:30) Heplock Iv (09/22/24 ) Urinalysis (09/22/24 23:30) Clonidine Hcl Tablet (Catapres Tablet) (09/23/24 02:00) Sodium Chloride 0.9% (09/23/24 02:00) Heplock Iv (09/23/24 ) Drug Screen (09/23/24 01:53) Vital Signs Date Time Temp Pulse Resp B/P (MAP) Pulse Ox O2 Delivery O2 Flow Rate FiO2 09/22/24 23:43 120 09/22/24 23:15 99.8 118 18 171/132 (145) 95 99.8 09/22/24 23:07 120 Laboratory Tests Test 09/22/24 23:13 09/22/24 23:40 White Blood Count 8.1 10^3/uL (4.4-10.8) Lactic Acid Level 2.1 mmol/L (0.4-2.0) *H Departure 1 Departure Time of Disposition: 02:05 Impression: Primary Impression: Hypertensive emergency Additional Impressions: Acute coronary syndrome Abdominal pain Disposition: 09 ADMITTED INPATIENT Condition: Fair Discharged With: Self Critical Care Note Critical Care Time?: No Stability Stability form required: No Heart Score Heart Score: Heart Score Response (Comments) Value History Slightly Suspicious 0 EKG Repolarization Disturb 1 Age 45-64 1 Risk Factors >3 or Hx ASHD 2 Troponin Normal limit 0 Total 4 I personally scribed for ESPERANZA MUNOZ PAC ([email or web address]) on 09/22/24 at 23:43. Electronically submitted by Blair Lazo [email or web address]). ESPERANZA MUNOZ PAC Sep 22, 2024 23:43
[2024-09-22 23:52] LABS: Alanine Aminotransferase 40 U/L (7-40); Alkaline Phosphatase 73 U/L (46-116); Anion Gap 11 (5-15); BUN/Creatinine Ratio 14.4 (10.0-20.0); Blood Urea Nitrogen 13 mg/dL (9-23); Carbon Dioxide 28 mmol/L (20-31); Chloride 102 mmol/L (98-107); Potassium 4.1 mmol/L (3.5-5.1); Sodium 141 mmol/L (136-145); Total Protein 7.5 g/dL (5.7-8.2)
[2024-09-22 23:53] LABS: Bilirubin, Total 0.8 mg/dL (0.2-1.0)
[2024-09-22 23:54] LABS: Albumin 4.9 g/dL (3.2-4.8); Calcium 10.5 mg/dL (8.7-10.4); Glucose 149 mg/dL (74-106)
[2024-09-23 00:11] LABS: Lactic Acid w/Reflex 2.1 mmol/L (0.4-2.0)
[2024-09-23 00:12] LABS: Lipase 28 U/L (12-53)
[2024-09-23] MEDS: SODIUM CHLORIDE 0.9% 1,000 ML IV ONE ×2 (02:00→05:16)
[2024-09-23] MEDS: HYDROmorphone HCL 2 MG/ML VL/or syr IV ONE (03:00)
[2024-09-23] MEDS: ONDANSETRON HCL 4 MG/2 ML VIAL IV ONE (03:05)
[2024-09-23] MEDS ORDERED: NITROGLYCERIN 0.4 MG SL TAB SL PRN (03:15)
[2024-09-23] MEDS ORDERED: MORPHINE SULFATE INJ 2 MG/ml SYRG IV PRN (03:15)
[2024-09-23 03:52] LABS: Chloride 102 mmol/L (98-107); Potassium 3.9 mmol/L (3.5-5.1); Sodium 141 mmol/L (136-145)
[2024-09-23 03:53] LABS: Anion Gap 10 (5-15); Carbon Dioxide 29 mmol/L (20-31)
[2024-09-23 03:54] LABS: Calcium 9.9 mg/dL (8.7-10.4)
[2024-09-23 03:59] LABS: BUN/Creatinine Ratio 13.1 (10.0-20.0); Blood Urea Nitrogen 11 mg/dL (9-23)
--- NOTE | 2024-09-23 04:24 | DVH ---
Exam: CT CT AB PEL WO CON-NO ORAL OR IV History: Abdominal pain, possible abdominal mass Comparison Study: CT CT AB PEL WO CON-NO ORAL OR IV on DOS: 7 25 Technique: Multidetector spiral CT of the abdomen and pelvis was performed from lung bases to pubic s ymphysis. Imaging was performed without intravenous contrast. Coronal and sagittal multiplanar reform ats were obtained from the axial data set by the technologist. Radiation Dose : 1. Abdomen/Pelvis: CTDIvol 20.5 mGy, DLP 1069.02 mGy*cm. Findings: Evaluation of vasculature and solid organs is limited due to lack of intravenous contrast use. Lung Bases: Lung bases are clear. Visualized portions of the heart and pericardium are unremarkable. Liver: The liver is normal in size. No focal lesions. Diffusely hypoattenuating liver parenchyma con sistent with hepatic steatosis. Gallbladder and Biliary Tree: The gallbladder is unremarkable. No intrahepatic or extrahepatic biliar y ductal dilatation. Spleen: Unremarkable Pancreas: The pancreas is grossly unremarkable. Adrenal Glands: Unremarkable Kidneys: Kidneys are unremarkable without calculi or hydronephrosis. GI tract: The stomach is grossly normal in appearance. No evidence of small bowel wall thickening or abnormal dilatation to suggest bowel obstruction. The colon is unremarkable. The appendix is visualiz ed and contains appendicolith. No dilatation or periappendiceal fat stranding Peritoneum/mesentery/retroperitoneum. No evidence of free intraperitoneal air. No ascites. No evidenc e of suspicious lymphadenopathy. Abdominal Wall: Unremarkable. Vasculature: The visualized abdominal aorta is normal in size and caliber. Evaluation of abdominal a nd pelvic vessels is limited due to lack of intravenous contrast. Urinary Bladder: Grossly unremarkable for degree of distention. Pelvic Organs: Unremarkable Musculoskeletal: No aggressive focal bony lesions, acute fractures or dislocation. Intervertebral dis c degeneration at L5-S1. Bilateral neural foraminal stenosis at L4-L5 and L5-S1. IMPRESSION: 1. Evaluation limited without intravenous contrast. No acute abdominal or pelvic findings. No eviden ce for mass within the limitations of unenhanced CT. 2. Hepatic steatosis.
[2024-09-23 04:25] VITALS: PULSE 93; RESP 20; O2SAT 97
[2024-09-23 04:33] LABS: Glucose 135 mg/dL (74-106)
[2024-09-23] MEDS: LABETALOL HCL 20 MG/4 ML VL IV PRN (04:36)
[2024-09-23] MEDS: MORPHINE SULFATE INJ 2 MG/ml SYRG IV PRN (04:43)
--- NOTE | 2024-09-23 04:51 | DVH ---
CHEST RADIOGRAPH Indication: CHF Technique: Single frontal view of the chest was obtained COMPARISON: XY CHEST PORTABLE on DOS: 09/01/24, XY CHEST PORTABLE on DOS: 08/30/24, XY CHEST PORTABLE on DOS: 08/13/24, XY CHEST PORTABLE on DOS: 08/02/24, XY CHEST XRAY 1 VIEW on DOS: 12/25/23 FINDINGS: Lines and Tubes: None Lungs: Clear Pleura: No effusion. No pneumothorax. Cardiomediastinal contours: Unremarkable Bones: Unremarkable IMPRESSION: 1. No acute disease.
--- NOTE | 2024-09-23 05:09 | DVHHPRES ---
History of Present Illness Resident Creating Document: FEMI MARQUES RESIDENT History of Present Illness Otis Krishna is a 49 yo male patient with past medical history of CHF, DM, hyperlipidemia, HTN, who presents to the ED with history of gradual abdominal pain since 1 year ago, intermittent, cramp like, radiated to the epigastic, that improves when he leans forward and is exacerbated with food. The patient reported he noticed a bulge in the left flank, that has increased size since June 2024, associated with non intentional weight loss +/- 20 pounds in the same period of time. Today, the abdominal pain became constant and 10/10 intensity, associated with nausea, dizziness and irradiation to the chest with similars characteristics. On further questioning, the patient reports that he was admitted at [facility] 1 week ago for abdominal pain, the pain was controlled medically and he was released home and advised to F/U with GI as out patient for colonoscopy and further workup. The patient denies palpitations, SOB, vomit, diarrhea, melena, dysuria, vomit,or other complaints. In the ED the patient was found tachycardic 120 bpm and BP 171/132. EKG revealed a sinus tachycardia with rate 120bpm. Labs shown lactic acid of 2.1mmo/l. Patient will be admitted for further evaluation and BP control. Cardiovascular: CHF, HTN, hyperipidemia Psych: Other Endocrine: Diabetes Past Surgical History: None Family History: Cancer, DM, Hypertension Smoke: No ALCOHOL: none Drugs: None Lives: with Family Review of Systems Constitutional: No: Fever, Chills, Sweats, Weakness, Malaise, Other Eyes: No: Pain, Vision change, Conjunctivae inflammation, Eyelid inflammation, Other, Redness ENT: No: Ear pain, Ear discharge, Nose pain, Nose discharge, Nose congestion, Mouth pain, Mouth swelling, Throat pain, Throat swelling, Other Respiratory: No: Cough, Dry, Shortness of breath, SOB with excertion, Wheezing, Hemoptysis, Pleuritic Pain, Sputum, Wheezing, Other Cardiovascular: Chest Pain, Lt Headedness Gastrointestinal: Nausea, Abdominal Pain Genitourinary: No Dysuria, No Frequency, No Incontinence, No Hematuria, No Retention, No Other Musculoskeletal: No: other, neck pain, shoulder pain, arm pain, back pain, hand pain, leg pain, foot pain Skin: No: Rash, Lesions, Jaundice, Bruising, Other Neurological: No: Weakness, Numbness, Incoordination, Change in speech, Confusion, Seizures, Other Allergies: Coded Allergies: No Known Drug Allergy (Verified Allergy, Unknown, 12/24/23) Medications Current Medications Medications Dose Ordered Sig/Jorge Route Start Time Stop Time Status Last Admin Dose Admin Labetalol HCl 10 mg Q2HPRN PRN IV 09/23/24 03:15 Aspirin 81 mg DAILY PO 09/23/24 10:00 Insulin Glargine 35 units BID@1000,2200 SC 09/23/24 10:00 Trazodone HCl 50 mg QHSP PRN PO 09/23/24 03:15 Ondansetron HCl 4 mg Q4HP PRN IV 09/23/24 03:15 Morphine Sulfate 2 mg Q4HPRN PRN IV 09/23/24 03:15 Nitroglycerin 0.4 mg Q5MINP PRN SL 09/23/24 03:15 Morphine Sulfate 2 mg Q30M PRN IV 09/23/24 03:15 Tramadol HCl 50 mg Q6HPRN PRN PO 09/23/24 03:45 Carvedilol 6.25 mg BID PO 09/23/24 10:00 Hydroxyzine Pamoate 25 mg DAILY PO 09/23/24 10:00 Insulin Human Lispro 25 units AC SC 09/23/24 07:00 Lisinopril 40 mg DAILY PO 09/23/24 10:00 Pregabalin 50 mg BID PO 09/23/24 10:00 Exam Vital Signs Vital Signs Date Time Temp Pulse Resp B/P (MAP) Pulse Ox O2 Delivery O2 Flow Rate FiO2 09/23/24 03:07 100 16 196/126 (149) 98 09/22/24 23:15 99.8 99.8 General Appearance: Alert, Oriented X3, Cooperative HEENT: Atraumatic, PERRLA, EOMI, Mucous membr. moist/pink Respiratory: Clear to auscultation, Normal air movement Cardiovascular: Regular rate, Normal S1, Normal S2, No murmurs Abdominal: Normal bowel sounds, Other (mildly distended, there is a protrusion over left abdominal flank that is tender to touch. ) Extremities: No clubbing, No cyanosis, No edema, Normal pulses, No tenderness/swelling Skin: No rashes, No breakdown, No significant lesion Neuro: Normal gait, Normal speech, Strength at 5/5 X4 ext, Normal tone, Sensation intact, Cranial nerves 3-12 NL Psych/Mental Status: Mental status NL, Other (Anxious.) Labs/Xrays Labs Test 09/23/24 02:15 09/22/24 23:13 Range/Units Lactic Acid Level 2.0 0.4-2.0 mmol/L Troponin I High Sensitivity 8 </=54 ng/L White Blood Count 8.1 4.4-10.8 10^3/uL Red Blood Count 4.85 4.5-5.90 10^6/uL Hemoglobin 15.2 13.5-17.5 g/dL Hematocrit 42.0 41.0-53.0 % Mean Corpuscular Volume 86.4 80.0-100.0 fL Mean Corpuscular Hemoglobin 31.3 28.0-32.0 pg Mean Corpuscular Hemoglobin Concent 36.2 H 32.0-36.0 g/dL Red Cell Distribution Width 14.7 H 11.8-14.3 % Platelet Count 297 140-450 10^3/uL Mean Platelet Volume 8.1 6.9-10.8 fL Neutrophils (%) (Auto) 60.0 37.0-80.0 % Lymphocytes (%) (Auto) 26.6 10.0-50.0 % Monocytes (%) (Auto) 11.2 0.0-12.0 % Eosinophils (%) (Auto) 1.5 0.0-7.0 % Basophils (%) (Auto) 0.7 0.0-2.0 % Neutrophils # (Auto) 4.9 1.6-8.6 10 ^3/uL Lymphocytes # (Auto) 2.2 0.4-5.4 10 ^3/uL Monocytes # (Auto) 0.9 0-1.3 10 ^3/uL Eosinophils # (Auto) 0.1 0-0.8 10 ^3/uL Basophils # (Auto) 0.1 0-0.2 10 ^3/uL Nucleated Red Blood Cells 0.0 % Total Bilirubin 0.8 0.2-1.0 mg/dL Aspartate Amino Transferase (AST) 37 13-40 U/L Alanine Aminotransferase (ALT) 40 7-40 U/L Alkaline Phosphatase 73 46-116 U/L Total Protein 7.5 5.7-8.2 g/dL Albumin 4.9 H 3.2-4.8 g/dL Lipase 28 12-53 U/L SEPSIS Sepsis Screen Date sepsis recognized/suspect: Sep 22, 2024 Time Sepsis recognized/suspect: 2314 Recent Procedure: No On Antibiotic Therapy: No Respiratory Rate >20: No Heart Rate >90: Yes Temp<36 C (96.8 F) or >38.3 C: No SBP <90 or MAP <65 mmHG: No New Acute Mental Status Change: No Is the patient on CPAP, BIPAP,: No Physician Orders Electrocardigram (09/22/24 22:56) Electrocardigram (09/22/24 23:56) Electrocardigram (09/23/24 01:56) Sodium Chloride 0.9% (09/22/24 23:30) Heplock Iv (09/22/24 ) Heplock Iv (09/23/24 ) Drug Screen (09/23/24 01:53) Labetalol Hcl (Labetalol Hcl) (09/23/24 03:15) Aspirin Enteric Coated Tablet (Ecotrin E (09/23/24 10:00) Insulin Lantus (Glargine) (Lantus) (09/23/24 10:00) Trazodone Hcl (Desyrel) (09/23/24 03:15) Code Status (09/23/24 03:10) Vital Signs .PER UNIT PROTOCOL (09/23/24 03:10) Review Orders With Adm. (09/23/24 03:10) Npo (Nothing By Mouth) Diet (09/23/24 Breakfast) Notify Md Of Changes From Base (09/23/24 03:10) Advance Directive (09/23/24 03:10) Ct Ab Pel Wo Con-No Oral Or Iv (09/23/24 03:10) Basic Metabolic Panel (09/23/24 03:10) Urinalysis (09/23/24 03:10) Patient Condition (09/23/24 03:10) Allergies (09/23/24 03:10) Ondansetron Hcl (Zofran) (09/23/24 03:15) Morphine Sulfate Injection (09/23/24 03:15) Nitroglycerin Sublingual (Ntrostat Subli (09/23/24 03:15) Morphine Sulfate Injection (09/23/24 03:15) Stat Ekg For Chest Pain (09/23/24 03:10) Notify Of Changes From Base (09/23/24 03:10) Beating Machine Operator For 24 Hours (09/23/24 03:10) Emergency Dysrhythmia Protocol (09/23/24 03:10) Rhythm Strips Once Every Shift (09/23/24 03:10) Sodium Chloride 0.9% (09/23/24 03:30) Tramadol Hcl (Ultram) (09/23/24 03:45) Admit (09/23/24 03:38) Carvedilol Tablet (Coreg Tablet) (09/23/24 10:00) Hydroxyzine Oral (Vistaril Oral) (09/23/24 10:00) Insulin Lispro (Human) (Humalog) (09/23/24 07:00) Lisinopril Tablet (Zestril Tablet) (09/23/24 10:00) Pregabalin Capsule (Lyrica Capsule) (09/23/24 10:00) Chest Xray 1 View (09/23/24 03:42) Covid19 Antigen Francia (09/23/24 ) Rapid Influenza A&B (09/23/24 03:42) Pantoprazole (Protonix) (09/23/24 10:00) Vital Signs Date Time Temp Pulse Resp B/P (MAP) Pulse Ox O2 Delivery O2 Flow Rate FiO2 09/23/24 03:07 100 16 196/126 (149) 98 09/23/24 03:00 194/126 09/23/24 03:00 110 16 194/126 09/22/24 23:43 120 09/22/24 23:15 99.8 118 18 171/132 (145) 95 99.8 09/22/24 23:07 120 Laboratory Tests Test 09/22/24 23:13 09/22/24 23:40 09/23/24 02:15 White Blood Count 8.1 10^3/uL (4.4-10.8) Lactic Acid Level 2.1 mmol/L (0.4-2.0) *H 2.0 mmol/L (0.4-2.0) Medications Medications Dose Ordered Sig/Jorge Route Start Time Stop Time Status Last Admin Dose Admin Clonidine HCl 0.2 mg ONCE ONCE PO 09/23/24 02:00 09/23/24 02:01 DC 09/23/24 03:00 0.2 MG Hydromorphone HCl 0.5 mg ONCE ONCE IV 09/22/24 23:30 09/22/24 23:33 DC 09/23/24 03:00 0.5 MG Ondansetron HCl 4 mg ONCE ONCE IV 09/22/24 23:30 09/22/24 23:33 DC 09/23/24 03:05 4 MG Sodium Chloride 1,000 ml @ 1,000 mls/hr Q1H ONCE IV 09/23/24 02:00 09/23/24 02:59 DC 09/23/24 02:00 1,000 MLS/HR Assessment/Plan Assessment/Plan #Hypertensive Urgency Telemetry EKG Labetalol 10 mg IV UDS BNP #Chest pain, R/O ACS Morphine 1mg iv Chest Xray EKG #Abdominal pain R/O abdominal hernia vs mass CT scan NPO #CHF not in exacerbation Carvedilol 12.5mg po qd #DM type 2, with hyperglycemia Insulin Lantus 35 U BID HbA1C #Hyperlipidemia Atorvastin 40mg po qd #Obesity BMI: 34.1 #Anxiety Duloxetin 20 mg po qd Diet: NPO DVT prophylaxis-not indicated patient ambulating PUD prophylaxis Protonix Goals of care discussed with the patient, spend >35 min with the patient. Discussed plan of care with Dr. Hallman Code status: Full code PCP: Karol Interiano Plan discussed with: Patient, patients agrees with the plan. Plan discussed with: Patient My Orders Orders - FEMI MARQUES RESIDENT Procedure Category Date Status Time Labetalol Hcl PHA 09/23/24 In Process (Labetalol Hcl) 03:15 Aspirin Enteric PHA 09/23/24 In Process Coated Tablet 10:00 Insulin Lantus PHA 09/23/24 In Process (Glargine) (Lantus) 10:00 Trazodone Hcl PHA 09/23/24 In Process (Desyrel) 03:15 Code Status CODE 09/23/24 Transmitted 03:10 Vital Signs JASWANT 09/23/24 In Process 03:10 Review Orders With JASWANT 09/23/24 In Process Adm. 03:10 Npo (Nothing By DIET 09/23/24 Transmitted Mouth) Diet Breakfast Notify Of Changes [facility] 09/23/24 Transmitted From Base 03:10 Advance Directive JASWANT 09/23/24 Transmitted 03:10 Ct Ab Pel Wo Con-No CT 09/23/24 Taken Oral Or Iv 03:10 Basic Metabolic Panel LAB 09/23/24 In Process 03:10 Urinalysis LAB 09/23/24 Logged 03:10 Patient Condition ORDERS 09/23/24 Transmitted 03:10 Allergies JASWANT 09/23/24 In Process 03:10 Ondansetron Hcl PHA 09/23/24 In Process (Zofran) 03:15 Morphine Sulfate PHA 09/23/24 In Process Injection 03:15 Nitroglycerin PHA 09/23/24 In Process Sublingual (Ntrostat 03:15 Morphine Sulfate PHA 09/23/24 In Process Injection 03:15 Stat Ekg For Chest [facility] 09/23/24 In Process Pain 03:10 Notify Of Changes [facility] 09/23/24 In Process From Base 03:10 Beating Machine Operator For [facility] 09/23/24 In Process 24 Hours 03:10 Emergency Dysrhythmia [facility] 09/23/24 In Process Protocol 03:10 Rhythm Strips Once [facility] 09/23/24 In Process Every Shift 03:10 Tramadol Hcl (Ultram) PHA 09/23/24 In Process 03:45 Admit ADMIT 09/23/24 Transmitted 03:38 Carvedilol Tablet PHA 09/23/24 In Process (Coreg Tablet) 10:00 Hydroxyzine Oral PHA 09/23/24 In Process (Vistaril Oral) 10:00 Insulin Lispro PHA 09/23/24 In Process (Human) (Humalog) 07:00 Lisinopril Tablet PHA 09/23/24 In Process (Zestril Tablet) 10:00 Pregabalin Capsule PHA 09/23/24 In Process (Lyrica Capsule) 10:00 Chest Xray 1 View XY 09/23/24 Logged 03:42 Covid19 Antigen Francia LAB 09/23/24 Logged Rapid Influenza A&B LAB 09/23/24 Logged 03:42 Pantoprazole PHA 09/23/24 In Process (Protonix) 10:00 Problem List: (1) Acute abdominal pain (2) Hypertensive urgency Common Visit Codes: [id number] INP/OBS CARE (HIGH) Secondary Visit Codes: [id number] CARE PLAN 30 MINUTES FEMI MARQUES RESIDENT Sep 23, 2024 05:09
[2024-09-23 05:16] LABS: COVID19 ANTIGEN SOFIA FIA NEGATIVE (NEGATIVE)
[2024-09-23 06:17] LABS: Hematocrit 38.7 % (41.0-53.0); Hemoglobin 13.7 g/dL (13.5-17.5); Mean Corpuscular Hemoglobin 30.9 pg (28.0-32.0); Mean Corpuscular Volume 87.1 fL (80.0-100.0); Nucleated Red Blood Cells % 0.1 %
[2024-09-23] MEDS: INSULIN LISPRO (HUMAN) 100 UNITS/ML ML SC SCH ×2 (06:46→17:15)
[2024-09-23] MEDS ORDERED: INSULIN LISPRO 25 UNIT SC SCH (07:00)
[2024-09-23 08:00] VITALS: PULSE 93; PULSE 98; RESP 16; RESP 20; O2SAT 95; O2SAT 97
[2024-09-23] MEDS: ONDANSETRON HCL 4 MG/2 ML VIAL IV PRN (09:18)
[2024-09-23] MEDS: hydrOXYzine 25 MG TAB or CAP PO SCH (09:38)
[2024-09-23] MEDS: PREGABALIN 25 MG CAP PO SCH (09:38)
[2024-09-23] MEDS: PANTOPRAZOLE 40 MG/10 ML VIAL INJ IV ONE (09:38)
[2024-09-23] MEDS: ASPirin-EC 81 mg tab PO SCH (09:38)
[2024-09-23] MEDS: LISINOPRIL 20 MG TAB PO SCH (09:40)
[2024-09-23] MEDS: CARVEDILOL 3.125 MG TAB PO SCH (09:40)
[2024-09-23] MEDS: INSULIN LANTUS (GLARGINE) 1 /0.01ml (100units/ml) SC SCH ×2 (09:48→22:00)
[2024-09-23] MEDS ORDERED: PATIENTS OWN MEDICATION (Pregabalin (Lyrica) 1 CAP) PO SCH (10:00)
[2024-09-23] MEDS ORDERED: PATIENTS OWN MEDICATION (Hydroxyzine Hcl 1 TAB) PO SCH (10:00)
[2024-09-23] MEDS ORDERED: PATIENTS OWN MEDICATION (Carvedilol 1 TAB) PO SCH (10:00)
[2024-09-23] MEDS ORDERED: PATIENTS OWN MEDICATION (Lisinopril 1 TAB) PO SCH (10:00)
[2024-09-23 10:05] LABS: Hepatitis B Surface Antigen Negative (Negative)
[2024-09-23] MEDS ORDERED: INSULIN LANTUS (GLARGINE) 1 /0.01ml (100units/ml) SC SCH (10:15)
[2024-09-23 10:39] LABS: Hepatitis C Antibody Negative (Negative)
--- NOTE | 2024-09-23 15:25 | DVHPNRES ---
Progress Note Date Seen: Sep 23, 2024 Resident Creating Document: FARRAH DEL TORO RESIDENT Medical Necessity Reason Pt with a Central, PICC or Fol: No Subjective Review of Systems Otis Krishna is a 49 yo male patient with past medical history of CHF, DM, hyperlipidemia, HTN, who presents to the ED with history of gradual abdominal pain since 1 year ago, intermittent, cramp like, radiated to the epigastic, that improves when he leans forward and is exacerbated with food. The patient reported he noticed a bulge in the left flank, that has increased size since June 2024, associated with non intentional weight loss +/- 20 pounds in the same period of time. Today, the abdominal pain became constant and 10/10 intensity, associated with nausea, dizziness and irradiation to the chest with similars characteristics. On further questioning, the patient reports that he was admitted at [facility] 1 week ago for abdominal pain, the pain was controlled medically and he was released home and advised to F/U with GI as out patient for colonoscopy and further workup. The patient denies palpitations, SOB, vomit, diarrhea, melena, dysuria, vomit,or other complaints. In the ED the patient was found tachycardic 120 bpm and BP 171/132. EKG revealed a sinus tachycardia with rate 120bpm. Labs shown lactic acid of 2.1mmo/l. Patient will be admitted for further evaluation and BP control. Patient seen in the ED. Patient is alert x3, in moderate distress, he complains of left upper quadrant and epigastric abdominal pain which she reports is 8/10 in intensity, but denies any nausea, vomiting, dizziness, headaches, diarrhea, constipation. Patient is started on clear liquid diet, and is tolerating well. Patient complained of lightheadedness and headache yesterday with loss of consciousness due to hypertension. Abdominal CT shows no acute abdominal findings and Hepatic steatosis. Patient was hospitalized on September 01 with the same symptoms. He states that IV morphine does not help and wants Dilaudid. Patient is on Lantus 35 once daily, lispro 10. His current blood pressure is 160/95. Patient drug screen is positive for opiates. Constitutional: has weight loss, HEENT: Denies changes in vision and hearing. Respiratory: Denies shortness of breath and cough Cardiovascular: complains of chest pain GI: complains of Left upper quadrent and epigastric pain : Denies dysuria and urinary frequency. Musculoskeletal: Denies myalgias and joint pain Skin: Denies rash and pruritus. Neurological: Denies dizziness, headache, vision or hearing problems Objective vital signs Vital Sign Date Time Temp Pulse Resp B/P (MAP) Pulse Ox O2 Delivery O2 Flow Rate FiO2 09/23/24 13:32 95 13 163/97 09/23/24 13:30 94 09/23/24 08:00 Room Air* 0 21 09/23/24 07:30 98.2 98.2 medications Current Medications Medications Dose Ordered Sig/Jorge Route Start Time Stop Time Status Last Admin Dose Admin Labetalol HCl 10 mg Q2HPRN PRN IV 09/23/24 03:15 09/23/24 07:41 10 MG Aspirin 81 mg DAILY PO 09/23/24 10:00 09/23/24 09:38 81 MG Trazodone HCl 50 mg QHSP PRN PO 09/23/24 03:15 Ondansetron HCl 4 mg Q4HP PRN IV 09/23/24 03:15 09/23/24 13:31 4 MG Morphine Sulfate 2 mg Q4HPRN PRN IV 09/23/24 03:15 09/23/24 13:32 2 MG Nitroglycerin 0.4 mg Q5MINP PRN SL 09/23/24 03:15 Morphine Sulfate 2 mg Q30M PRN IV 09/23/24 03:15 Tramadol HCl 50 mg Q6HPRN PRN PO 09/23/24 03:45 Carvedilol 6.25 mg BID PO 09/23/24 10:00 09/23/24 09:40 6.25 MG Hydroxyzine Pamoate 25 mg DAILY PO 09/23/24 10:00 09/23/24 09:38 25 MG Insulin Human Lispro 25 units AC SC 09/23/24 07:00 09/23/24 11:30 25 UNITS Lisinopril 40 mg DAILY PO 09/23/24 10:00 09/23/24 09:40 40 MG Pregabalin 50 mg BID PO 09/23/24 10:00 09/23/24 09:38 50 MG Insulin Glargine 35 units BID SC 09/23/24 22:00 Examination General: Patient alert and oriented in person, place and time. Patient following commands. HEENT: Normocephalic, atraumatic, moist mucous membranes Respiratory/pulmonary: Clear lungs bilaterally, vesicular murmurs present in almost all lung warren, no associated crackles or wheezes. Cardiovascular: Normal heart sounds S1 and S2 with no associated murmurs Abdomen: Abdomen nondistended, pain on palpation in left upper quadrant, left sided mass Extremities: There is no peripheral edema present at the lower extremities. Peripheral Pulses: 3+ Radial (R). 3+ Radial (L). 3+ Dorsalis pedis (R). 3+ Dorsalis pedis(L) Skin: No rashes or pruritus, there is no sacral edema present at this time. Neurological: Intact cranial nerves with no focal neurologic deficits laboratory and microbiology Laboratory Tests 09/23/24 06:02 09/23/24 02:15 Test 09/23/24 02:15 Range/Units Serum Glucose 135 H 74-106 mg/dL Microbiology Date/Time Source Procedure Growth Status 09/23/24 04:30 Nose MRSA Screen - Final Complete Problem List/Assessment/Plan Problem List/Assessment/Plan # Hypertension Urgency # Chest Pain ruled out ACS # Chest pain likely non-cardiac in the setting of hypertensive emergency # Chronic compensated HFrEF, NYHA Class II # Dyslipidemia -IV Labetalol 10 mg -Coreg, lisinopril, IV hydralazine as needed -Continuous monitoring of blood pressure -A recent transthoracic echocardiogram revealed an LVEF of 30-35%. -GDMT for HFrEF # Abdominal Pain ruled out hernia - Ct abdomen shows 1. Evaluation limited without intravenous contrast. No acute abdominal or pelvic findings. No evidence for mass within the limitations of unenhanced CT, and Hepatic steatosis. - morphine 2 mg IV Q 4 p.r.n., tramadol 50 mg q.6 PRN, pregabalin 50 mg b.i.d. p.o. for pain #Syncope likely due to hypertension emergency # Ruled out cardiac cause - EKG normal sinus rhythm with heart rate of 120 bpm # Type 2 diabetes mellitus with hyperglycemia - insulin Lantus 35 once daily, lispro 10 units # Poor medical compliance/drug seeking behavior - urine drug screen positive for opiates -consult regarding importance of adherence of medications explained about risks and benefits GI prophylaxis: Not indicated now VTE prophylaxis: Ambulatory Goals of care discussed with the patient for 27 minutes: full code status Case discussed with Dr. Carvalho Plan discussed with: Patient Date of Service: Sep 23, 2024 Billing Provider: CAROLINA OVALLE MD Common Visit Codes: [id number] INP/OBS CARE(HIGH) FARRAH DEL TORO RESIDENT Sep 23, 2024 15:25 CAROLINA OVALLE MD Sep 25, 2024 01:53
[2024-09-23 16:22] LABS: Urine Protein, UAD TRACE (Negative)
[2024-09-23 16:33] LABS: Amphetamine Screen, Urine Neg (NEGATIVE); Barbiturate Scree,Urine Neg (NEGATIVE); Benzodiazephine Screen, Urine Neg (NEGATIVE); Cannabinoid Screen, Urine Neg (NEGATIVE); Cocaine Screen, Urine Neg (NEGATIVE); Opiate Scree,Urine Pos (NEGATIVE); Phencyclidine Screen, Urine Neg (NEGATIVE)
[2024-09-23 20:00] VITALS: PULSE 88
[2024-09-23 21:34] VITALS: BP 171/103; PULSE 85; RESP 17; TEMP 97.5; O2SAT 97
[2024-09-24] VITALS (7 sets, daily range): BP systolic 145–171; BP diastolic 94–106; PULSE 80–95; RESP 17–19; TEMP 97.4–98.1; O2SAT 94–98
[2024-09-24] MEDS: INSULIN LANTUS (GLARGINE) 1 /0.01ml (100units/ml) SC SCH ×2 (06:45→21:25)
[2024-09-24] MEDS: LISINOPRIL 20 MG TAB PO SCH (06:55)
[2024-09-24 07:33] LABS: Alanine Aminotransferase 35 U/L (7-40); Albumin 4.0 g/dL (3.2-4.8); Alkaline Phosphatase 58 U/L (46-116); Anion Gap 8 (5-15); BUN/Creatinine Ratio 12.6 (10.0-20.0); Bilirubin, Total 0.6 mg/dL (0.2-1.0); Blood Urea Nitrogen 11 mg/dL (9-23); Calcium 9.5 mg/dL (8.7-10.4); Carbon Dioxide 30 mmol/L (20-31); Chloride 104 mmol/L (98-107); Glucose 106 mg/dL (74-106); Sodium 142 mmol/L (136-145); Total Protein 6.4 g/dL (5.7-8.2)
[2024-09-24 07:35] LABS: Potassium 3.5 mmol/L (3.5-5.1)
[2024-09-24 08:01] LABS: Hematocrit 35.4 % (41.0-53.0); Hemoglobin 12.7 g/dL (13.5-17.5); Mean Corpuscular Hemoglobin 31.3 pg (28.0-32.0); Mean Corpuscular Volume 87.2 fL (80.0-100.0); Nucleated Red Blood Cells % 0.1 %
[2024-09-24] MEDS: AMITRIPTYLINE HCL 10 MG TAB PO ONE (16:53)
[2024-09-24] MEDS: PANTOPRAZOLE 40 MG/10 ML VIAL INJ IV ONE (16:54)
--- NOTE | 2024-09-24 16:56 | DVHPNRES ---
Progress Note Date Seen: Sep 24, 2024 Resident Creating Document: FARRAH DEL TORO RESIDENT Medical Necessity Reason Pt with a Central, PICC or Fol: No Subjective Review of Systems Otis Krishna is a 49 yo male patient with past medical history of CHF, DM, hyperlipidemia, HTN, who presents to the ED with history of gradual abdominal pain since 1 year ago, intermittent, cramp like, radiated to the epigastic, that improves when he leans forward and is exacerbated with food. The patient reported he noticed a bulge in the left flank, that has increased size since June 2024, associated with non intentional weight loss +/- 20 pounds in the same period of time. Today, the abdominal pain became constant and 10/10 intensity, associated with nausea, dizziness and irradiation to the chest with similars characteristics. On further questioning, the patient reports that he was admitted at [facility] 1 week ago for abdominal pain, the pain was controlled medically and he was released home and advised to F/U with GI as out patient for colonoscopy and further workup. The patient denies palpitations, SOB, vomit, diarrhea, melena, dysuria, vomit,or other complaints. In the ED the patient was found tachycardic 120 bpm and BP 171/132. EKG revealed a sinus tachycardia with rate 120bpm. Labs shown lactic acid of 2.1mmo/l. Patient will be admitted for further evaluation and BP control. Patient seen at bedside. Patient is alert x3, appears in mild distress, he still complains of 8/10 abdominal pain in the left upper quadrant which is radiating to the right side. His blood pressure is being controlled, Nifedipine and lisinopril were given. Amitriptyline was given. Objective vital signs Vital Sign Date Time Temp Pulse Resp B/P (MAP) Pulse Ox O2 Delivery O2 Flow Rate FiO2 09/24/24 13:19 171/106 09/24/24 13:00 97.7 93 18 97 97.7 09/23/24 20:00 Room Air* 0 21 Total Intake and Output 09/23/24 09/23/24 09/24/24 15:00 23:00 07:00 Intake Total 240 ml 1000 ml Balance 240 ml 1000 ml medications Current Medications Medications Dose Ordered Sig/Jorge Route Start Time Stop Time Status Last Admin Dose Admin Labetalol HCl 10 mg Q2HPRN PRN IV 7/28/25 03:15 09/23/24 07:41 10 MG Aspirin 81 mg DAILY PO 09/23/24 10:00 09/24/24 10:05 81 MG Trazodone HCl 50 mg QHSP PRN PO 09/23/24 03:15 Ondansetron HCl 4 mg Q4HP PRN IV 09/23/24 03:15 09/23/24 13:31 4 MG Morphine Sulfate 2 mg Q4HPRN PRN IV 09/23/24 03:15 09/24/24 10:03 2 MG Nitroglycerin 0.4 mg Q5MINP PRN SL 09/23/24 03:15 Tramadol HCl 50 mg Q6HPRN PRN PO 09/23/24 03:45 09/23/24 21:16 50 MG Carvedilol 6.25 mg BID PO 09/23/24 10:00 09/24/24 10:04 6.25 MG Hydroxyzine Pamoate 25 mg DAILY PO 09/23/24 10:00 09/24/24 10:03 25 MG Pregabalin 50 mg BID PO 09/23/24 10:00 09/24/24 10:03 50 MG Insulin Human Lispro 10 units AC SC 09/23/24 17:15 Insulin Glargine 35 units DAILY SC 09/24/24 06:45 Lisinopril 40 mg DAILY PO 09/24/24 06:45 09/24/24 10:05 40 MG Nifedipine 30 mg DAILY PO 09/25/24 10:00 Pantoprazole Sodium 40 mg DAILY IV 09/25/24 10:00 Amitriptyline HCl 10 mg HS PO 09/24/24 22:00 Examination General: Patient alert and oriented in person, place and time. Patient following commands. HEENT: Normocephalic, atraumatic, moist mucous membranes Respiratory/pulmonary: Clear lungs bilaterally, vesicular murmurs present in almost all lung warren, no associated crackles or wheezes. Cardiovascular: Normal heart sounds S1 and S2 with no associated murmurs Abdomen: Abdomen nondistended, pain on palpation in left upper quadrant, left sided mass Extremities: There is no peripheral edema present at the lower extremities. Peripheral Pulses: 3+ Radial (R). 3+ Radial (L). 3+ Dorsalis pedis (R). 3+ Dorsalis pedis(L) Skin: No rashes or pruritus, there is no sacral edema present at this time. Neurological: Intact cranial nerves with no focal neurologic deficits laboratory and microbiology Laboratory Tests 09/24/24 05:59 Test 09/24/24 05:59 Range/Units Serum Glucose 106 74-106 mg/dL Microbiology Date/Time Source Procedure Growth Status 09/23/24 04:30 Nose MRSA Screen - Final Complete Problem List/Assessment/Plan Problem List/Assessment/Plan # Hypertension Urgency # Chest pain likely non-cardiac in the setting of hypertensive emergency # Chronic compensated HFrEF, NYHA Class II # Dyslipidemia -IV Labetalol 10 mg -Coreg, lisinopril, IV hydralazine as needed -Continuous monitoring of blood pressure -A recent transthoracic echocardiogram revealed an LVEF of 30-35%. -GDMT for HFrEF # Abdominal Pain ruled out hernia - Ct abdomen shows 1. Evaluation limited without intravenous contrast. No acute abdominal or pelvic findings. No evidence for mass within the limitations of unenhanced CT, and Hepatic steatosis. - morphine 2 mg IV Q 4 p.r.n., tramadol 50 mg q.6 PRN, pregabalin 50 mg b.i.d. p.o. for pain - amitriptyline added - oxycodone added - patient advanced to full liquid diet is tolerating well #Syncope likely due to hypertension emergency # Ruled out cardiac cause - EKG normal sinus rhythm with heart rate of 120 bpm #Possible PUD -Protonix 40 mg IV given # Type 2 diabetes mellitus with hyperglycemia - insulin Lantus 35 once daily, lispro 10 units # Poor medical compliance/drug seeking behavior - urine drug screen positive for opiates -consult regarding importance of adherence of medications explained about risks and benefits GI prophylaxis: Not indicated now VTE prophylaxis: Ambulatory Goals of care discussed with the patient for 27 minutes: full code status Case discussed with Dr. Carvalho Plan discussed with: Patient My Orders My Orders Orders - FARRAH DEL TORO RESIDENT Procedure Category Date Status Time Insulin Lispro PHA 09/23/24 In Process (Human) (Humalog) 17:15 Full Liq Diet DIET 09/24/24 Transmitted Lunch Transfer Orders XFER 09/24/24 Transmitted 16:41 Discontinue Tele JASWANT 09/24/24 In Process 16:41 Date of Service: Sep 24, 2024 Billing Provider: CAROLINA OVALLE MD Common Visit Codes: [id number] INP/OBS CARE(HIGH) FARRAH DEL TORO RESIDENT Sep 24, 2024 16:56 CAROLINA OVALLE MD Sep 25, 2024 02:02
[2024-09-24] MEDS: METOCLOPRAMIDE HCL 5MG/ml INJ 2ml VIAL IV SCH (18:40)
[2024-09-24] MEDS: LIDOCAINE 5% TOPICAL PATCH TOP ONE (18:40)
[2024-09-24] MEDS: AMITRIPTYLINE HCL 10 MG TAB PO SCH (21:13)
[2024-09-25 01:00] VITALS: BP 156/90; PULSE 93; RESP 17; TEMP 98; O2SAT 95
[2024-09-25 05:00] VITALS: BP 153/97; PULSE 82; RESP 17; TEMP 97.8; O2SAT 100
[2024-09-25] MEDS ORDERED: OXYCODONE W/ ACETAMINOPHEN 5/325MG TABLET PO PRN (06:30)
[2024-09-25] MEDS: INSULIN LISPRO (HUMAN) 100 UNITS/ML ML SC SCH (06:43)
[2024-09-25 09:21] VITALS: BP 164/104; PULSE 81; RESP 18; TEMP 97.9; O2SAT 97
[2024-09-25] MEDS: PANTOPRAZOLE 40 MG/10 ML VIAL INJ IV SCH (09:59)
--- NOTE | 2024-09-25 12:54 | ECG ---
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
[2024-09-25] MEDS: NIFEdipine 10 MG CAP PO ONE (14:20)
[2024-09-25 17:00] VITALS: BP 126/85; PULSE 111; RESP 18; TEMP 98.2; O2SAT 97
[2024-09-25 17:09] VITALS: BP 126/85; PULSE 111; RESP 18; TEMP 98.2; O2SAT 97
--- NOTE | 2024-09-25 17:59 | DVHDSRES ---
Discharge Summary Date of Admission Resident Creating Document: FARRAH DEL TORO RESIDENT Sep 23, 2024 at 03:10 Date of Discharge: Sep 25, 2024 Admitting Diagnosis Hypertension Urgency Labs/Diagnostic Data: Laboratory Results Test 09/25/24 11:13 09/24/24 05:59 09/23/24 16:12 09/23/24 04:30 POC Glucose 154 mg/dl (70-106) White Blood Count 7.2 10^3/uL (4.4-10.8) Red Blood Count 4.06 10^6/uL (4.5-5.90) Hemoglobin 12.7 g/dL (13.5-17.5) Hematocrit 35.4 % (41.0-53.0) Mean Corpuscular Volume 87.2 fL (80.0-100.0) Mean Corpuscular Hemoglobin 31.3 pg (28.0-32.0) Mean Corpuscular Hemoglobin Concent 36.0 g/dL (32.0-36.0) Red Cell Distribution Width 14.3 % (11.8-14.3) Platelet Count 232 10^3/uL (140-450) Mean Platelet Volume 8.2 fL (6.9-10.8) Neutrophils (%) (Auto) 58.6 % (37.0-80.0) Lymphocytes (%) (Auto) 25.1 % (10.0-50.0) Monocytes (%) (Auto) 12.6 % (0.0-12.0) Eosinophils (%) (Auto) 3.1 % (0.0-7.0) Basophils (%) (Auto) 0.6 % (0.0-2.0) Neutrophils # (Auto) 4.2 10 ^3/uL (1.6-8.6) Lymphocytes # (Auto) 1.8 10 ^3/uL (0.4-5.4) Monocytes # (Auto) 0.9 10 ^3/uL (0-1.3) Eosinophils # (Auto) 0.2 10 ^3/uL (0-0.8) Basophils # (Auto) 0 10 ^3/uL (0-0.2) Nucleated Red Blood Cells 0.1 % Sodium Level 142 mmol/L (136-145) Potassium Level 3.5 mmol/L (3.5-5.1) Chloride Level 104 mmol/L (98-107) Carbon Dioxide Level 30 mmol/L (20-31) Anion Gap 8 (5-15) Blood Urea Nitrogen 11 mg/dL (9-23) Creatinine 0.87 mg/dL (0.700-1.30) Glomerular Filtration Rate Calc 106 mL/min (>90) BUN/Creatinine Ratio 12.6 (10.0-20.0) Serum Glucose 106 mg/dL (74-106) Calcium Level 9.5 mg/dL (8.7-10.4) Total Bilirubin 0.6 mg/dL (0.2-1.0) Aspartate Amino Transferase (AST) 30 U/L (13-40) Alanine Aminotransferase (ALT) 35 U/L (7-40) Alkaline Phosphatase 58 U/L (46-116) Total Protein 6.4 g/dL (5.7-8.2) Albumin 4.0 g/dL (3.2-4.8) Urine Color Yellow (Yellow) Urine Clarity Turbid (Clear) Urine pH 6.5 (5.0-9.0) Urine Specific [place] 1.024 (1.001-1.035) Urine Protein Trace (Negative) Urine Ketones Negative (Negative) Urine Blood Negative /uL (Negative) Urine Nitrite Negative (Negative) Urine Bilirubin Negative (Negative) Urine Urobilinogen 8 mg/dL (Negative) Urine Leukocyte Esterase Negative /uL (Negative) Urine RBC 1 /hpf (0 - 3) Urine Microscopic WBC 1 /HPF (0-3) Urine Squamous Epithelial Cells Few /hpf (<5) Urine Bacteria None seen /hpf (None Seen) Urine Mucus Moderate (None Seen) Urine Glucose Normal mg/dL (Normal) Urine Opiates Screen Pos (NEGATIVE) Urine Fentanyl Screen Neg (NEGATIVE) Urine Barbiturates Screen Neg (NEGATIVE) Urine Phencyclidine Screen Neg (NEGATIVE) Urine Amphetamines Screen Neg (NEGATIVE) Urine Benzodiazepines Screen Neg (NEGATIVE) Urine Cocaine Screen Neg (NEGATIVE) Urine Cannabinoids Screen Neg (NEGATIVE) Influenza Type A Antigen Negative (Negative) Influenza Type B Antigen Negative (Negative) SARS-CoV-2 Antigen (Rapid) Negative (NEGATIVE) Test 09/23/24 02:15 09/23/24 00:00 09/22/24 23:13 Lactic Acid Level 2.0 mmol/L (0.4-2.0) Troponin I High Sensitivity 8 ng/L (</=54) Lipase 26 U/L (12-53) Hepatitis B Surface Antigen Negative (Negative) Hepatitis C Antibody Negative (Negative) Hemoglobin A1c 6.2 % A1C (<5.7) B-Type Natriuretic Peptide 35.09 pg/mL (0-100) Other Laboratory Tests 09/24/24 05:59 Brief Hx & Hospital Course: Otis Krishna is a 49 yo male patient with past medical history of CHF, DM, hyperlipidemia, HTN, who presents to the ED with history of gradual abdominal pain since 1 year ago, intermittent, cramp like, radiated to the epigastic, that improves when he leans forward and is exacerbated with food. The patient reported he noticed a bulge in the left flank, that has increased size since June 2024, associated with non intentional weight loss +/- 20 pounds in the same period of time. Today, the abdominal pain became constant and 10/10 intensity, associated with nausea, dizziness and irradiation to the chest with similars characteristics. On further questioning, the patient reports that he was admitted at [facility] 1 week ago for abdominal pain, the pain was controlled medically and he was released home and advised to F/U with GI as out patient for colonoscopy and further workup. The patient denies palpitations, SOB, vomit, diarrhea, melena, dysuria, vomit,or other complaints. In the ED the patient was found tachycardic 120 bpm and BP 171/132. EKG revealed a sinus tachycardia with rate 120bpm. Labs shown lactic acid of 2.1mmo/l. Patient will be admitted for further evaluation and BP control. brief hospital course: Patient came to the ED with hypertension urgency with BP of 171/132, patient was started on labetalol 10 mg, lisinopril, IV hydralazine were given as needed, blood pressure was continuously monitored, his recent echocardiogram showed LV EF of 30-35% patient is on GDMT for HFrEF. patient had abdominal pain for which hernia was ruled out, on CT scan showed Evaluation limited without intravenous contrast. No acute abdominal or pelvic findings. No evidence for mass within the limitations of unenhanced CT, and Hepatic steatosis. patient was started on morphine 2 mg IV q.4 PRN, amitriptyline oxycodone were added. patient was started on full liquid diet and tolerated well. syncope likely due to hypertensive urgency and ruled out a cardiac cause. patient was started on Protonix 40 mg IV for possible for PUD. for type 2 diabetes mellitus insulin Lantus 35 and lispro 10 units were given. he has poor medical compliance and was consulted regarding importance of adherence of medication and was explained about the risks and benefits. patient is stable for discharge and communicated understanding of his discharge plan and agreed. General: Patient alert and oriented in person, place and time. Patient following commands. HEENT: Normocephalic, atraumatic, moist mucous membranes Respiratory/pulmonary: Clear lungs bilaterally, vesicular murmurs present in almost all lung warren, no associated crackles or wheezes. Cardiovascular: Normal heart sounds S1 and S2 with no associated murmurs Abdomen: Abdomen nondistended, pain on palpation in left upper quadrant, left sided mass Extremities: There is no peripheral edema present at the lower extremities. Peripheral Pulses: 3+ Radial (R). 3+ Radial (L). 3+ Dorsalis pedis (R). 3+ Dorsalis pedis(L) Skin: No rashes or pruritus, there is no sacral edema present at this time. Neurological: Intact cranial nerves with no focal neurologic deficits Operations or Procedures ORDERING PHYSICIAN: FEMI MARQUES RESIDENT PROCEDURE(s): ABPL - CT AB PEL WO CON-NO ORAL OR IV REASON: Abdominal pain, possible abdominal mass ORDER NUMBER(s): [id number], ACCESSION NUMBER(s): [id number] Exam: CT CT AB PEL WO CON-NO ORAL OR IV History: Abdominal pain, possible abdominal mass Comparison Study: CT CT AB PEL WO CON-NO ORAL OR IV on DOS: 7 25 Technique: Multidetector spiral CT of the abdomen and pelvis was performed from lung bases to pubic symphysis. Imaging was performed without intravenous contrast. Coronal and sagittal multiplanar reformats were obtained from the axial data set by the technologist. Radiation Dose : 1. Abdomen/Pelvis: CTDIvol 20.5 mGy, DLP 1069.02 mGy*cm. Findings: Evaluation of vasculature and solid organs is limited due to lack of intravenous contrast use. Lung Bases: Lung bases are clear. Visualized portions of the heart and pericardium are unremarkable. Liver: The liver is normal in size. No focal lesions. Diffusely hypoattenuating liver parenchyma consistent with hepatic steatosis. Gallbladder and Biliary Tree: The gallbladder is unremarkable. No intrahepatic or extrahepatic biliary ductal dilatation. Spleen: Unremarkable Pancreas: The pancreas is grossly unremarkable. Adrenal Glands: Unremarkable Kidneys: Kidneys are unremarkable without calculi or hydronephrosis. GI tract: The stomach is grossly normal in appearance. No evidence of small bowel wall thickening or abnormal dilatation to suggest bowel obstruction. The colon is unremarkable. The appendix is visualized and contains appendicolith. No dilatation or periappendiceal fat stranding Peritoneum/mesentery/retroperitoneum. No evidence of free intraperitoneal air. No ascites. No evidence of suspicious lymphadenopathy. Abdominal Wall: Unremarkable. Vasculature: The visualized abdominal aorta is normal in size and caliber. Evaluation of abdominal and pelvic vessels is limited due to lack of intravenous contrast. Urinary Bladder: Grossly unremarkable for degree of distention. Pelvic Organs: Unremarkable Musculoskeletal: No aggressive focal bony lesions, acute fractures or dislocation. Intervertebral disc degeneration at L5-S1. Bilateral neural foraminal stenosis at L4-L5 and L5-S1. IMPRESSION: 1. Evaluation limited without intravenous contrast. No acute abdominal or pelvic findings. No evidence for mass within the limitations of unenhanced CT. 2. Hepatic steatosis. RING PHYSICIAN: FEMI MARQUES PROCEDURE(s): CXR1 - CHEST XRAY 1 VIEW REASON: [facility] ORDER NUMBER(s): [id number], ACCESSION NUMBER(s): [id number] CHEST RADIOGRAPH Indication: [facility] Technique: Single frontal view of the chest was obtained COMPARISON: XY CHEST PORTABLE on DOS: 09/01/24, XY CHEST PORTABLE on DOS: 08/30/24, XY CHEST PORTABLE on DOS: 08/13/24, XY CHEST PORTABLE on DOS: 08/02/24, XY CHEST XRAY 1 VIEW on DOS: 12/25/23 FINDINGS: Lines and Tubes: None Lungs: Clear Pleura: No effusion. No pneumothorax. Cardiomediastinal contours: Unremarkable Bones: Unremarkable IMPRESSION: 1. No acute disease. Condition at Discharge: Stable Final Diagnosis/Problems List # Hypertension Urgency # Chest pain likely non-cardiac in the setting of hypertensive emergency # Chronic compensated HFrEF, NYHA Class II # Dyslipidemia # Abdominal Pain ruled out hernia # Syncope likely due to hypertension emergency # Ruled out cardiac cause # Possible PUD # Type 2 diabetes mellitus with hyperglycemia # Poor medical compliance/drug seeking behavior Discharge Disposition: Home Discharge Instruct/Medications Diet: Cardiac 2g Na,low cholest Activity: Light activity Follow Up/Referral: Follow-up with pain management as outpatient Follow-up with primary care physician within 7 days Follow-up with DC clinic within 7 days Medications: Continue Coreg 6.25 mg twice daily Continue lisinopril 40 mg daily Continue nifedipine 90 mg daily Continue Lantus 10 units at bedtime Continue insulin lispro 5 minute before meals Scheduled Carvedilol (Carvedilol), 1 TAB PO BID, (Reported) Clonidine Hydrochloride (Clonidine Hcl), 1 TAB PO BIDPRN, (Reported) Duloxetine Hcl (Cymbalta), 1 CAP PO DAILY Ergocalciferol (Vitamin D), 1 CAP PO QWEEKLY, (Reported) Furosemide (Furosemide), 1 TAB PO BID, (Reported) Gabapentin (Gabapentin), 3 CAP PO TID, (Reported) Hydroxyzine Hcl (Hydroxyzine Hcl), 1 TAB PO DAILY, (Reported) Insulin Glargine (Lantus), 35 UNITS SC BID@1000,2200 Insulin Lispro (Humalog Kwikpen), 25 UNITS SC AC, (Reported) Linaclotide Base (Linzess), 1 CAP PO DAILY, (Reported) Lisinopril (Lisinopril), 1 TAB PO DAILY Metoclopramide HCl (Metoclopramide Hydrochlor), 1 TAB PO TID, (Reported) Nifedipine (Nifedipine Er), 1 TAB PO BID, (Reported) Nifedipine (Nifedipine ER), 90 MG PO DAILY Nitroglycerin (Ntrostat Sublingual), 0.4 MG SL PRN, (Reported) Pantoprazole Sodium Sesquihydr (Pantoprazole Sodium), 1 TAB PO BID, (Reported) Polyethylene Glycol 3350 (Gnp Clearlax), 17 GM PO DAILY, (Reported) Senna (Senna-Time), 2 TAB PO DAILY, (Reported) Sildenafil Citrate (Sildenafil Citrate), 1 TAB PO DAILY, (Reported) Sucralfate (Carafate Susp), 10 ML PO BID, (Reported) Tirzepatide (Mounjaro), 7.5 MG SUBCUT QWEEKLY, (Reported) Scheduled PRN Trazodone Hcl (Trazodone Hcl), 1 TAB PO QHSP PRN for PSYCHOPHYSIOLOGIC INSOMNIA, (Reported) Miscellaneous Medications Tramadol Hcl (Tramadol Hcl), 50 MG PO, (Reported) Discontinued Medications Ibuprofen Micronized (Ibuprofen), 1 TAB PO Q8HPRN, (Reported) Discharge Statement: "Patient was advised to return to the ER or call 911 if any headaches, dizziness, shortness of breath, chest pain, abdominal pain, bleeding, fevers, or worsening of medical condition. Patient was counseled about treatment plan, medications, possible side effects, patientverbalized understanding. All questions were answered to the best of my ability. This discharge took greater then 30 minutes in planning, reviewing documentation, counseling the patient, and discussing with other team members." ASSESSMENT ASSESSMENT Assessment Hypertension Urgency Chest pain likely in the setting of hypertensive emergency Date of Service: Sep 25, 2024 Billing Provider: CAROLINA OVALLE MD Common Visit Codes: 68900-GBO/OBS DISCH DAY >30min FARRAH DEL TORO Sep 25, 2024 17:59 CAROLINA OVALLE MD Sep 25, 2024 22:07
[2024-09-25] MEDS ORDERED: NIFE1TAB36 PO (20:42)
--- NOTE | 2024-09-30 07:53 | ECG ---
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
--- NOTE | 2024-09-30 07:54 | ECG ---
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
== END 2024-09-25 18:25 | disposition home or self-care (01) | DRG 199 ==
LOC: ER 22:52 → OVERFLOW 09-23 03:10 → TELE-CENTR 09-23 18:14 → CENTRAL 09-24 17:41
PROVIDERS: ADMIT Student in an Organized Health Care Education/Training Program; ATTEND Student in an Organized Health Care Education/Training Program
DX: I16.1 Hypertensive emergency (principal); I50.22 Chronic systolic (congestive) heart failure; E11.65 Type 2 diabetes mellitus with hyperglycemia; I16.0 Hypertensive urgency; K27.9 Peptic ulcer, site unspecified, unspecified as acute or chronic, without hemorrhage or perforation; I11.0 Hypertensive heart disease with heart failure; I25.10 Atherosclerotic heart disease of native coronary artery without angina pectoris; E78.5 Hyperlipidemia, unspecified; E66.9 Obesity, unspecified; F41.9 Anxiety disorder, unspecified; Z79.4 Long term (current) use of insulin; Z79.82 Long term (current) use of aspirin; Z79.899 Other long term (current) drug therapy; Z68.34 Body mass index [BMI] 34.0-34.9, adult
CPT/HCPCS: 36415; 71045; 74176; 80048; 80053; 80307; 81001; 82962; 83036; 83605; 83690; 83880; 84484; 85025; 86803; 87081; 87340; 87426; 87804; 93005; G0378; J1815; J2405; J2470

== ENCOUNTER 2024-11-22 23:46 | Inpatient (IN) | payer MEDICAID ==
[~2024-11-22] VITALS: Ht 170.2 cm; Wt 93.8 kg
[~2024-11-22 23:46] MED LIST changes: -ASPI-325 PO; -CARV6.2551 PO; -CHOLCAP10 PO; -ERGO1CAP23 PO; -IBUP-1455 PO; -INSUINJ37 SC; +NIFE1TAB36 PO; -PANT40TA2 PO; -PREG50CA PO
[2024-11-23] MEDS: LABETALOL HCL 20 MG/4 ML VL IV ONE
[2024-11-23] MEDS: NITROGLYCERIN 2% OINT 1GM PKG TD ONE (00:15)
--- NOTE | 2024-11-23 00:26 | ED.PDOC ---
History of Present Illness HPI Comments 49-year-old male who came to ER for chest pains. Patient seen and admitted here multiple times the past 3 months for hypertensive urgency, uncontrolled diabetes, CHF, left upper quadrant hernia, medication noncompliance. Patient has been complaining of abdominal pain for the past 2 months. States the pain causes his blood pressure to rise. Few hours ago patient started complaining of chest pains as well. Upon arrival blood pressure was 202/142 mm Hg. Patient claims that he takes his medications as prescribed REVIEW OF SYSTEMS: General: No fever, no chills, or fatigue HEENT: No sore throat, no earache, no congestion, no neck pain. Cardiac: (+) chest pain. No palpitations. Lungs: No shortness of breath, no cough. GI: No nausea, no vomiting, no diarrhea, no constipation, (+) abdominal pain : No dysuria, frequency, or urgency. No hematuria. Musculoskeletal: No joint pain , no joint swelling, no extremity edema. Skin: No rash, no itching. Neuro: No headache, no dizziness, no weakness EXAM: General: Awake, alert and oriented. No acute distress. Skin: Skin in warm, dry and intact. Appropriate color for ethnicity. HEENT: The head is normocephalic and atraumatic. Conjunctivae are clear without exudates or hemorrhage. Sclera is non-icteric. EOM are intact. No signs of nystagmus. Eyelids are normal in appearance without swelling or lesions. Oral mucosa is pink and moist Neck: The neck is supple with normal range of motion. No JVD. Cardiac: Heart rate and rhythm are normal. No murmurs, gallops, or rubs are auscultated. Respiratory: No signs of respiratory distress. Lung sounds are clear in all lobes bilaterally without rales, rhonchi, or wheezes. Abdominal: Abdomen is soft, generally tender. Left lateral abdominal wall bulging noted. Extremities: Upper and lower extremities are atraumatic in appearance without deformity or edema. Neurological: The patient is awake, alert and oriented to person, place, and time with normal speech. Speech is clear. There is no facial asymmetry. Normal gait. Psychiatric: Appropriate mood and affect. Good judgement and insight Chief Complaint: Chest Pain Time Seen by MD: 00:24 Primary Care Provider: ? Reviewed Notes: Nurse Prn Notes Allergies: Coded Allergies: No Known Drug Allergy (Verified Allergy, Unknown, 12/24/23) Home Meds Active Scripts Nifedipine (Nifedipine ER) 30 Mg Tab, 90 MG PO DAILY for 30 Days, #90 TAB 0 Refills Prov:RUY CARUSO RESIDENT 09/25/24 Lisinopril (Lisinopril) 40 Mg Tab, 1 TAB PO DAILY, #30 TAB 1 Refill Prov:CAROLINA OVALLE MD 08/23/24 Duloxetine Hcl (Cymbalta) 20 Mg Cap, 1 CAP PO DAILY for 30 Days, #30 CAP Prov:ALE HARRIS RESIDENT 08/15/24 Insulin Glargine (Lantus) 100 Unit/Ml Inj, 35 UNITS SC BID@1000,2200 for 30 Days, #1 INJ Prov:CORRINE GRAHAM RESIDENT 12/28/23 Reported Medications Sildenafil Citrate (Sildenafil Citrate) 20 Mg Tab, 1 TAB PO DAILY for 30 Days, #30 09/24/24 Sucralfate (CARAFATE SUSP) 1 Gm/10 Ml Ss, 10 ML PO BID for 30 Days, #600 09/24/24 Senna (Senna-Time) 8.6 Mg Tab, 2 TAB PO DAILY for 30 Days, #60 09/24/24 Tirzepatide (Mounjaro) 7.5 Mg/0.5 Ml Inj, 7.5 MG SUBCUT QWEEKLY for 28 Days, #2 09/24/24 Ergocalciferol (Vitamin D) 50,000 Unit Cap, 1 CAP PO QWEEKLY for 28 Days, #4 09/24/24 Gabapentin (Gabapentin) 300 Mg Cap, 3 CAP PO TID for 30 Days, #270 09/24/24 Metoclopramide HCl (Metoclopramide Hydrochlor) 10 Mg Tab, 1 TAB PO TID for 30 Days, #90 09/24/24 Pantoprazole Sodium Sesquihydr (Pantoprazole Sodium) 40 Mg Tab, 1 TAB PO BID for 30 Days, #60 09/24/24 Polyethylene Glycol 3350 (Gnp Clearlax) 17 Gm/Scoop Pow, 17 GM PO DAILY for 30 Days, #510 09/24/24 Nifedipine (Nifedipine Er) 30 Mg Tab, 1 TAB PO BID for 30 Days, #60 09/24/24 Carvedilol (Carvedilol) 12.5 Mg Tab, 1 TAB PO BID for 30 Days, #60 09/24/24 Clonidine Hydrochloride (Clonidine Hcl) 0.1 Mg Tab, 1 TAB PO BIDPRN for 30 Days, #60 09/24/24 Insulin Lispro (Humalog Kwikpen) 100 Unit/Ml Inj, 25 UNITS SC AC for 40 Days, #30 08/14/24 Trazodone Hcl (Trazodone Hcl) 50 Mg Tab, 1 TAB PO QHSP PRN for PSYCHOPHYSIOLOGIC INSOMNIA for 30 Days, #30 08/14/24 Furosemide (Furosemide) 20 Mg Tab, 1 TAB PO BID for 90 Days, #180 08/14/24 Hydroxyzine Hcl (Hydroxyzine Hcl) 25 Mg Tab, 1 TAB PO DAILY for 30 Days, #30 08/14/24 Linaclotide Base (LINZESS) 145 Mcg Cap, 1 CAP PO DAILY for 30 Days, #30 08/14/24 Nitroglycerin (NTROSTAT SUBLINGUAL) 0.4 Mg Sl, 0.4 MG SL PRN, TAB *MAY REPEAT EVERY 5 MINUTES X 3 TOTAL IF NO RELIEF, INITIATE ANALGESIC THERAPY. NOTIFY PHYSICIAN *Do not crush. 12/25/23 Tramadol Hcl (Tramadol Hcl) 50 Mg Tab, 50 MG PO, TAB 12/25/23 Information Source: Patient Mode of Arrival: Ambulatory Past Medical History PAST MEDICAL HISTORY: CAD, CHF, DM, High Lipids, HTN Past Medical History (Other): Left upper quadrant hernia with loops of bowel Surgical History: Denies all surgeries Family History Family History: Reviewed,noncontributory to illness Social History Smoker: Non-Smoker Alcohol: Denies ETOH Use Drugs: Denies Drug Use Lives In: Home Was a procedure done? Was a procedure done?: No EKG EKG : Pulse Rate (adult): 109 Cardiac Rhythm: ST Hypertrophy: LAE, LVH Comments No STEMI. Differential Dx Considerations may include: Hypertensive urgency, hyperglycemia, anxiety, medication noncompliance, CVA, acute coronary syndrome, PE, incarcerated hernia, bowel obstruction, perforated bowel, other X-Ray, Labs, Meds, VS Vital Signs Date Time Temp Pulse Resp B/P (MAP) Pulse Ox O2 Delivery O2 Flow Rate FiO2 11/23/24 04:45 98.1 106 19 161/111 (128) 96 98.1 11/23/24 04:45 109 18 96 Room Air* 0 21 11/23/24 03:12 99 11/23/24 01:48 93 14 181/120 11/23/24 00:53 103 11/23/24 00:26 109 11/23/24 00:15 178/116 11/23/24 00:00 93 165/105 11/22/24 23:58 109 11/22/24 23:49 98.5 118 20 202/142 98 98.5 Lab Test 11/23/24 05:01 11/23/24 02:51 11/23/24 00:45 11/23/24 00:02 Range/Units Prothrombin Time 11.9 H 9.3-11.8 sec Prothrombin Time INR 1.14 0.9-1.15 Activated Partial Thromboplast Time 31.4 24.5-34.5 SEC Lactic Acid Level 1.2 0.4-2.0 mmol/L Troponin I High Sensitivity 14 10 16 15 </=54 ng/L White Blood Count 9.8 4.4-10.8 10^3/uL Red Blood Count 5.11 4.5-5.90 10^6/uL Hemoglobin 15.5 13.5-17.5 g/dL Hematocrit 43.4 41.0-53.0 % Mean Corpuscular Volume 84.9 80.0-100.0 fL Mean Corpuscular Hemoglobin 30.4 28.0-32.0 pg Mean Corpuscular Hemoglobin Concent 35.8 32.0-36.0 g/dL Red Cell Distribution Width 13.3 11.8-14.3 % Platelet Count 256 140-450 10^3/uL Mean Platelet Volume 8.6 6.9-10.8 fL Neutrophils (%) (Auto) 60.6 37.0-80.0 % Lymphocytes (%) (Auto) 24.1 10.0-50.0 % Monocytes (%) (Auto) 13.3 H 0.0-12.0 % Eosinophils (%) (Auto) 1.3 0.0-7.0 % Basophils (%) (Auto) 0.7 0.0-2.0 % Neutrophils # (Auto) 6.0 1.6-8.6 10 ^3/uL Lymphocytes # (Auto) 2.4 0.4-5.4 10 ^3/uL Monocytes # (Auto) 1.3 0-1.3 10 ^3/uL Eosinophils # (Auto) 0.1 0-0.8 10 ^3/uL Basophils # (Auto) 0.1 0-0.2 10 ^3/uL Nucleated Red Blood Cells 0.1 % Sodium Level 142 136-145 mmol/L Potassium Level 3.4 L 3.5-5.1 mmol/L Chloride Level 109 H 98-107 mmol/L Carbon Dioxide Level 23 20-31 mmol/L Anion Gap 10 5-15 Blood Urea Nitrogen 22 9-23 mg/dL Creatinine 1.22 0.700-1.30 mg/dL Glomerular Filtration Rate Calc 73 >90 mL/min BUN/Creatinine Ratio 18.0 10.0-20.0 Serum Glucose 127 H 74-106 mg/dL Hemoglobin A1c 6.4 H <5.7 % A1C Calcium Level 8.6 L 8.7-10.4 mg/dL Phosphorus Level 3.2 2.4-5.1 mg/dL Magnesium Level 2.1 1.6-2.6 mg/dL Total Bilirubin 0.5 0.2-1.0 mg/dL Direct Bilirubin 0.3 <0.3 mg/dL Aspartate Amino Transferase (AST) 47 H 13-40 U/L Alanine Aminotransferase (ALT) 43 H 7-40 U/L Alkaline Phosphatase 83 46-116 U/L C-Reactive Protein High Sensitivity 0.05 <1.0 mg/dL B-Type Natriuretic Peptide 111.74 0-100 pg/mL Total Protein 6.7 5.7-8.2 g/dL Albumin 4.0 3.2-4.8 g/dL Triglycerides Level 97 < 150 mg/dL Cholesterol Level < 50.0 < 200 mg/dL LDL Cholesterol 18 < 100 mg/dL HDL Cholesterol 20 L 40-59 mg/dL Lipase 79 H 12-53 U/L Vitamin B12 Level Pending Vitamin D 25-Hydroxy 53.3 30.0-100 ng/mL Thyroid Stimulating Hormone (TSH) 2.81 0.55-4.78 uIU/mL Current Medications Medications (Trade) Dose Ordered Sig/Jorge Route Start Time Stop Time Status Last Admin Labetalol HCl (Labetalol HCl) 20 mg ONCE ONCE IV 11/23/24 00:00 11/23/24 00:02 DC 11/23/24 00:00 Nitroglycerin (Nitro-Bid) 1 pkg ONCE ONCE TD 11/23/24 00:15 11/23/24 00:16 DC 11/23/24 00:15 Morphine Sulfate 2 mg ONCE ONCE IV 11/23/24 01:30 11/23/24 01:31 DC 11/23/24 01:48 Potassium Chloride (Klor-Con Tablet) 40 meq ONCE ONCE PO 11/23/24 03:00 11/23/24 03:01 DC 11/23/24 04:30 Lidocaine (Lidoderm 5% Topical Patch) 1 patch ONCE ONCE TOP 11/23/24 05:15 11/23/24 05:31 DC 11/23/24 07:15 Cyclobenzaprine HCl (Flexeril Tablet) 5 mg Q12HR PRN PO 11/23/24 05:15 11/23/24 10:55 DC 11/23/24 07:14 Metoclopramide HCl (Reglan Tablet) 10 mg ONCE ONCE PO 11/23/24 05:15 11/23/24 05:31 DC 11/23/24 07:14 Enoxaparin Sodium (Lovenox) 40 mg ONCE ONCE SC 11/23/24 05:45 11/23/24 05:46 DC 11/23/24 07:15 CHEST RADIOGRAPH Indication: cp Technique: Single frontal view of the chest was obtained COMPARISON: XY CHEST XRAY 1 VIEW on DOS: 09/23/24, XY CHEST PORTABLE on DOS: 09/01/24, XY CHEST PORTABLE on DOS: 08/30/24, XY CHEST TWO VIEWS ROUTINE on DOS: 08/28/24, XY CHEST TWO VIEWS ROUTINE on DOS: 08/21/24 FINDINGS: Lines and Tubes: None Lungs: Clear Pleura: No effusion. No pneumothorax. Cardiomediastinal contours: Cardiomegaly. Bones: Unremarkable IMPRESSION: 1. Cardiomegaly. Exam: CT CT AB PEL WITH IV CON ONLY History: Left abdominal wall bulging, history of hernia, abdominal pa COMPARISON: CT CT ABD PELVIS W CON-ORAL IV on DOS: 09/02/24, CT CT AB PEL WITH IV CON ONLY on DOS: 08/13/24, CT CT AB PEL WITH IV CON ONLY on DOS: 07/21/24 Technique: Multidetector spiral CT of the abdomen and pelvis was performed from lung bases to pubic symphysis. Intravenous contrast was administered during this examination. Portal venous imaging was obtained. Axial, coronal and sagittal multiplanar reformats were performed by the technologist on a separate workstation. Radiation Dose : 1. Abdomen/Pelvis: CTDIvol 19.33 mGy, DLP 1239.08 mGy*cm. CONTRAST: Type of contrast: Omniscan 300 Contrast injected: 100 ml Findings: Lung Bases: No acute or significant lung base finding. Cardiomegaly. No pleural or pericardial effusion. Liver: The liver is normal in size. No focal lesions. Normal hepatic vascular enhancement. Gallbladder and Biliary Tree: Unremarkable Spleen: Unremarkable Pancreas: The pancreas is normal in appearance without focal lesions or abnormal enhancement. Adrenal Glands: Unremarkable Kidneys: No hydronephrosis. Bladder: Unremarkable Bowel: The stomach is grossly normal in appearance. Minimally distended fluid- filled segments of small bowel predominantly within the left lower quadrant with some air-fluid levels, possibly representing ileus versus partial obstruction. No clear zone of transition of caliber obstructive etiology identified. Large bowel demonstrates normal caliber and distribution. The appendix is normal. Ascites: Absent Lymphadenopathy: No mesenteric, retroperitoneal or periportal lymphadenopathy. Abdominal Wall and Mesentery: Unremarkable. Vasculature: The visualized abdominal aorta is normal in size and caliber. Abdominal and pelvic vessels demonstrate normal enhancement. Pelvic Organs: Unremarkable Musculoskeletal: No aggressive focal bony lesions, acute fractures or dislocation. IMPRESSION: 1. Minimally distended fluid-filled segments of small bowel predominantly within the left lower quadrant with some air-fluid levels, possibly representing ileus versus partial obstruction. No clear zone of transition of caliber obstructive etiology identified. 2. Cardiomegaly. Radiation optimization: All CT scans at this facility use at least one of these dose optimization techniques: automated exposure control mA and/or kV adjustment per patient size (includes targeted exams where dose is matched to clinical indication) or iterative reconstruction. Time of 1ST Reevaluation: 00:26 Reevaluation 1ST: Unchanged Patient Education/Counseling: Need For Follow Up Family Education/Counseling: No Family Present SEPSIS Sepsis Screen Date sepsis recognized/suspect: Nov 22, 2024 Time Sepsis recognized/suspect: 2351 Recent Procedure: Yes On Antibiotic Therapy: Yes Respiratory Rate >20: No Heart Rate >90: Yes Temp<36 C (96.8 F) or >38.3 C: No SBP <90 or MAP <65 mmHG: No New Acute Mental Status Change: No Is the patient on CPAP, BIPAP,: No Physician Orders Electrocardigram (11/22/24 23:54) Electrocardigram (11/23/24 00:54) Electrocardigram (11/23/24 02:54) Chest Xray 1 View (11/22/24 23:59) Revenue Investigator (11/22/24 ) Ct Ab Pel With Iv Con Only (11/23/24 00:19) Drug Screen (11/23/24 04:41) Urinalysis (11/23/24 04:41) Vitamin B12 (11/23/24 04:41) Code Status (11/23/24 05:04) Oxygen By Nasal Cannula (11/23/24 05:04) Stool Occult Blood (11/23/24 05:04) Vital Signs Date Time Temp Pulse Resp B/P (MAP) Pulse Ox O2 Delivery O2 Flow Rate FiO2 11/23/24 04:45 98.1 106 19 161/111 (128) 96 98.1 11/23/24 04:45 109 18 96 Room Air* 0 21 11/23/24 03:12 99 11/23/24 01:48 93 14 181/120 11/23/24 00:53 103 11/23/24 00:26 109 11/23/24 00:15 178/116 11/23/24 00:00 93 165/105 11/22/24 23:58 109 11/22/24 23:49 98.5 118 20 202/142 98 98.5 Laboratory Tests Test 11/23/24 00:02 11/23/24 05:01 White Blood Count 9.8 10^3/uL (4.4-10.8) Lactic Acid Level 1.2 mmol/L (0.4-2.0) Departure 1 Departure Time of Disposition: 02:49 Impression: Primary Impression: Chest pain Additional Impressions: Hypertensive urgency Abdominal pain Ileus Disposition: ADMITTED INPATIENT Condition: Stable Comments 49 Yo male with multiple risk factors with hypertensive urgency, ongoing chest pain, recurrent abdominal pain. Patient is stabilized in the ED. Patient admitted to hospitalist service for further treatment, evaluation and monitoring. Extensive evaluation was performed in attempt to identify or rule out: (See differential diagnosis section) The following tests were ordered, and results were reviewed by me and discussed with patient: (See diagnostic results section) The following test were independently interpreted by me: EKG I reviewed the following notes from the pt's past medical encounters: Previous encounter for uncontrolled hypertension Addressed an acute or chronic illness that poses a threat to life or bodily function: Hypertensive urgency Decision regarding hospitalization or escalation of hospital level of care: Risk and benefits of admission for further treatment of patient's condition was considered. Due to patient's current clinical condition, high risk of decline and poor outcome if discharged and need for further inpatient management and m onitoring, patient will be admitted to the hospital. Discussed with patient. Drug therapy requiring intensive monitoring for toxicity: IV labetalol Parenteral controlled substances: IV morphine Critical Care Note Critical Care Time?: Yes (35 min-critical care time only) Critical care comment: Hypertensive urgency Stability Stability form required: No Heart Score Heart Score: Heart Score Response (Comments) Value History Moderate Suspicious 1 EKG Repolarization Disturb 1 Age 45-64 1 Risk Factors >3 or Hx ASHD 2 Troponin Normal limit 0 Total 5 I personally scribed for DIMITRIS LOMELI MD ([employer]) on 11/23/24 at 00:26. Electronically submitted by Solis Stephens ([email or web address]). I personally scribed for DIMITRIS LOMELI MD ([employer]) on 11/23/24 at 03:49. Electronically submitted by Solis Stephens ([employer]). I personally scribed for DIMITRIS LOMELI MD ([employer]) on 11/23/24 at 05:08. Electronically submitted by Solis Stephens ([email or web address]). DIMITRIS LOMELI MD Nov 23, 2024 00:26
[2024-11-23 01:01] LABS: Hematocrit 43.4 % (41.0-53.0); Hemoglobin 15.5 g/dL (13.5-17.5); Mean Corpuscular Hemoglobin 30.4 pg (28.0-32.0); Mean Corpuscular Volume 84.9 fL (80.0-100.0); Nucleated Red Blood Cells % 0.1 %
[2024-11-23 01:03] LABS: Sodium 142 mmol/L (136-145)
[2024-11-23 01:04] LABS: Anion Gap 10 (5-15); Carbon Dioxide 23 mmol/L (20-31)
[2024-11-23 01:05] LABS: Calcium 8.6 mg/dL (8.7-10.4); Chloride 109 mmol/L (98-107); Potassium 3.4 mmol/L (3.5-5.1)
[2024-11-23 01:09] LABS: BUN/Creatinine Ratio 18.0 (10.0-20.0); Blood Urea Nitrogen 22 mg/dL (9-23); Glucose 127 mg/dL (74-106)
[2024-11-23] MEDS: MORPHINE SULFATE INJ 2 MG/ml SYRG IV ONE ×2 (01:48→08:04)
[2024-11-23] MEDS: IOHEXOL 300 MG/ML 100ML BOTTLE IJ ONE (03:01)
--- NOTE | 2024-11-23 03:26 | DVH ---
CHEST RADIOGRAPH Indication: cp Technique: Single frontal view of the chest was obtained COMPARISON: XY CHEST XRAY 1 VIEW on DOS: 09/23/24, XY CHEST PORTABLE on DOS: 09/01/24, XY CHEST PORTABLE on DOS: 08/30/24, XY CHEST TWO VIEWS ROUTINE on DOS: 08/28/24, XY CHEST TWO VIEWS ROUTINE on DOS: 5 FINDINGS: Lines and Tubes: None Lungs: Clear Pleura: No effusion. No pneumothorax. Cardiomediastinal contours: Cardiomegaly. Bones: Unremarkable IMPRESSION: 1. Cardiomegaly.
--- NOTE | 2024-11-23 04:09 | DVH ---
Exam: CT CT AB PEL WITH IV CON ONLY History: Left abdominal wall bulging, history of hernia, abdominal pa COMPARISON: CT CT ABD PELVIS W CON-ORAL IV on DOS: 09/02/24, CT CT AB PEL WITH IV CON ONLY on DOS: , CT CT AB PEL WITH IV CON ONLY on DOS: 07/21/24 Technique: Multidetector spiral CT of the abdomen and pelvis was performed from lung bases to pubic s ymphysis. Intravenous contrast was administered during this examination. Portal venous imaging was o btained. Axial, coronal and sagittal multiplanar reformats were performed by the technologist on a [employer] workstation. Radiation Dose : 1. Abdomen/Pelvis: CTDIvol 19.33 mGy, DLP 1239.08 mGy*cm. CONTRAST: Type of contrast: Omniscan 300 Contrast injected: 100 ml Findings: Lung Bases: No acute or significant lung base finding. Cardiomegaly. No pleural or pericardial effus ion. Liver: The liver is normal in size. No focal lesions. Normal hepatic vascular enhancement. Gallbladder and Biliary Tree: Unremarkable Spleen: Unremarkable Pancreas: The pancreas is normal in appearance without focal lesions or abnormal enhancement. Adrenal Glands: Unremarkable Kidneys: No hydronephrosis. Bladder: Unremarkable Bowel: The stomach is grossly normal in appearance. Minimally distended fluid-filled segments of smal l bowel predominantly within the left lower quadrant with some air-fluid levels, possibly representin g ileus versus partial obstruction. No clear zone of transition of caliber obstructive etiology ident ified. Large bowel demonstrates normal caliber and distribution. The appendix is normal. Ascites: Absent Lymphadenopathy: No mesenteric, retroperitoneal or periportal lymphadenopathy. Abdominal Wall and Mesentery: Unremarkable. Vasculature: The visualized abdominal aorta is normal in size and caliber. Abdominal and pelvic vess els demonstrate normal enhancement. Pelvic Organs: Unremarkable Musculoskeletal: No aggressive focal bony lesions, acute fractures or dislocation. IMPRESSION: 1. Minimally distended fluid-filled segments of small bowel predominantly within the left lower quadr ant with some air-fluid levels, possibly representing ileus versus partial obstruction. No clear zone of transition of caliber obstructive etiology identified. 2. Cardiomegaly. Radiation optimization: All CT scans at this facility use at least one of these dose optimization john hniques: automated exposure control mA and/or kV adjustment per patient size (includes targeted exam s where dose is matched to clinical indication) or iterative reconstruction.
[2024-11-23] MEDS: POTASSIUM CHL 20 Meq TABLET PO ONE (04:30)
[2024-11-23 04:45] VITALS: PULSE 109; RESP 18; TEMP 98.1; O2SAT 96
[2024-11-23] MEDS: InsuLIN REG 1unit/0.01ml Soln (100units/ml) SC ONE (05:15)
[2024-11-23] MEDS: DEXTROSE (50%) 50ML SYRG IV ONE (05:15)
[2024-11-23] MEDS: ACCU-CHEK COMFORT CURVE STRIP VI ONE (05:15)
[2024-11-23 05:29] LABS: Albumin 4.0 g/dL (3.2-4.8); Alkaline Phosphatase 83 U/L (46-116); Bilirubin, Total 0.5 mg/dL (0.2-1.0); Magnesium 2.1 mg/dL (1.6-2.6); Total Protein 6.7 g/dL (5.7-8.2)
[2024-11-23 05:31] LABS: Alanine Aminotransferase 43 U/L (7-40); Lipase 79 U/L (12-53)
--- NOTE | 2024-11-23 05:41 | DVHHPRES ---
History of Present Illness Resident Creating Document: FERN LOPEZ RESIDENT History of Present Illness This is a 49-year-old male with past medical history of HFrEF with ejection fraction 30-35%, insulin-dependent diabetes mellitus type 2, hyperlipidemia, hypertension, presented to the ER with chief complain of dizziness with no loss of consciousness due to elevated blood pressure. He does not report any fall or head trauma. Patient endorses that while he was out having barbecue with family, he almost lost consciousness and family called EMS where he was informed he had high blood pressure. He also complains of left flank pain and swelling, described pain as burning, 10/10, radiating to the right side of the abdomen. Pain was associated with nausea and vomiting, he vomited 4 times, he was unable to describe vomitus. He also complained of chest pain, pressure-like, without aggravating or relieving factors. Patient also has multiple other complaints including ringing in his right ear, headache. Previous hospitalization: 2 months ago for similar complaints PMHx: CHF, IDDM type 2, hyperlipidemia, HTN, depression, H pylori infection Family history: Heart failure (multiple relatives on mother side of family) Social history: Denies smoking, alcohol, recreational drug use. Lives in house with family. Full code. Next to kin: Jeromy Home medication: Tetracycline, cyclobenzaprine, omeprazole, lidocaine patch, trazodone, metronidazole, Jardiance, insulin, atorvastatin, clonidine, spironolactone, carvedilol, losartan, Dennis Allergic history: No allergy history Patient was examined at bedside today. Patient continues to complain of abdominal pain in the left side of his flank Review of Systems Constitutional: Yes: Chills Cardiovascular: Chest Pain Gastrointestinal: Nausea, Vomiting, Abdominal Pain, Constipation Allergies: Coded Allergies: No Known Drug Allergy (Verified Allergy, Unknown, 12/24/23) Exam Vital Signs Vital Signs Date Time Temp Pulse Resp B/P (MAP) Pulse Ox O2 Delivery O2 Flow Rate FiO2 11/23/24 03:12 99 11/23/24 01:48 14 181/120 11/22/24 23:49 98.5 98 98.5 Exam Patient lying in bed. Currently in no acute distress General: Patient alert and oriented in person, place and time. Patient following commands. HEENT: Normocephalic, atraumatic, moist mucous membranes Respiratory/pulmonary: Clear lungs bilaterally, vesicular murmurs present in almost all lung warren, no associated crackles or wheezes. Cardiovascular: Normal heart sounds S1 and S2 with no associated murmurs Abdomen: Examination limited by excruciating abdominal tenderness to mild touch. Extremities: There is no peripheral edema present at the lower extremities. Peripheral Pulses: 3+ Radial (R). 3+ Radial (L). 3+ Dorsalis pedis (R). 3+ Harrison salis pedis(L) Skin: Multiple tattoos. No rashes or pruritus, there is no sacral edema present at this time. Neurological: Intact cranial nerves with no focal neurologic deficits Labs/Xrays Labs Test 11/23/24 05:01 11/23/24 00:02 Range/Units White Blood Count 9.8 4.4-10.8 10^3/uL Red Blood Count 5.11 4.5-5.90 10^6/uL Hemoglobin 15.5 13.5-17.5 g/dL Hematocrit 43.4 41.0-53.0 % Mean Corpuscular Volume 84.9 80.0-100.0 fL Mean Corpuscular Hemoglobin 30.4 28.0-32.0 pg Mean Corpuscular Hemoglobin Concent 35.8 32.0-36.0 g/dL Red Cell Distribution Width 13.3 11.8-14.3 % Platelet Count 256 140-450 10^3/uL Mean Platelet Volume 8.6 6.9-10.8 fL Neutrophils (%) (Auto) 60.6 37.0-80.0 % Lymphocytes (%) (Auto) 24.1 10.0-50.0 % Monocytes (%) (Auto) 13.3 H 0.0-12.0 % Eosinophils (%) (Auto) 1.3 0.0-7.0 % Basophils (%) (Auto) 0.7 0.0-2.0 % Neutrophils # (Auto) 6.0 1.6-8.6 10 ^3/uL Lymphocytes # (Auto) 2.4 0.4-5.4 10 ^3/uL Monocytes # (Auto) 1.3 0-1.3 10 ^3/uL Eosinophils # (Auto) 0.1 0-0.8 10 ^3/uL Basophils # (Auto) 0.1 0-0.2 10 ^3/uL Nucleated Red Blood Cells 0.1 % Sodium Level 142 136-145 mmol/L Potassium Level 3.4 L 3.5-5.1 mmol/L Chloride Level 109 H 98-107 mmol/L Carbon Dioxide Level 23 20-31 mmol/L Anion Gap 10 5-15 Blood Urea Nitrogen 22 9-23 mg/dL Creatinine 1.22 0.700-1.30 mg/dL Glomerular Filtration Rate Calc 73 >90 mL/min BUN/Creatinine Ratio 18.0 10.0-20.0 Serum Glucose 127 H 74-106 mg/dL Calcium Level 8.6 L 8.7-10.4 mg/dL B-Type Natriuretic Peptide 111.74 0-100 pg/mL SEPSIS Sepsis Screen Date sepsis recognized/suspect: Nov 22, 2024 Time Sepsis recognized/suspect: 2351 Recent Procedure: Yes On Antibiotic Therapy: Yes Respiratory Rate >20: No Heart Rate >90: Yes Temp<36 C (96.8 F) or >38.3 C: No SBP <90 or MAP <65 mmHG: No New Acute Mental Status Change: No Is the patient on CPAP, BIPAP,: No Physician Orders Electrocardigram (11/22/24 23:54) Troponin-I Hs (11/23/24 02:54) Electrocardigram (11/23/24 00:54) Electrocardigram (11/23/24 02:54) Chest Xray 1 View (11/22/24 23:59) Vital Signs Q1HR (11/22/24 23:59) Saline Lock (11/22/24 23:59) Auto Hauler (11/22/24 ) Ct Ab Pel With Iv Con Only (11/23/24 00:19) Hepatic Panel (11/23/24 04:41) C-Reactive Protein (11/23/24 04:41) Drug Screen (11/23/24 04:41) Hemoglobin A1c (11/23/24 04:41) Lactic Acid W/ Reflex Order (11/23/24 04:41) Lipase (11/23/24 04:41) Lipid Panel (11/23/24 04:41) Magnesium (11/23/24 04:41) Phosphorus (11/23/24 04:41) PTPTT (11/23/24 04:41) Thyroid Stimulating Hormone (11/23/24 04:41) Urinalysis (11/23/24 04:41) Vitamin B12 (11/23/24 04:41) Vitamin D, 25-Hydroxy (11/23/24 04:41) Admit (11/23/24 05:04) Allergies (11/23/24 05:04) Code Status (11/23/24 05:04) Acetaminophen Tablet (Tylenol Tablet) (11/23/24 06:00) Cardiac Diet-2gna,Lofat,Lochol (11/23/24 Breakfast) Condition: Serious (11/23/24 05:04) Lovenox 40mg (11/23/24 05:15) Oxygen By Nasal Cannula (11/23/24 05:04) Clostridium Difficile Toxin (11/23/24 05:04) Lidocaine 5% Topical Patch (Lidoderm 5% (11/23/24 05:15) Lidocaine 5% Topical Patch (Lidoderm 5% (11/23/24 10:00) Trazodone Hcl (Desyrel) (11/23/24 22:00) Spironolactone (Aldactone) (11/23/24 10:00) Clonidine Hcl Tablet (Catapres Tablet) (11/23/24 10:00) Atorvastatin (Lipitor) (11/23/24 22:00) Carvedilol Tablet (Coreg Tablet) (11/23/24 10:00) Losartan Tablet (Cozaar Tablet) (11/23/24 10:00) Cyclobenzaprine Tablet (Flexeril Tablet) (11/23/24 05:15) Lactulose Oral (11/23/24 10:00) Stool Occult Blood (11/23/24 05:04) Metoclopramide Tablet (Reglan Tablet) (11/23/24 05:15) Glucose Blood (Accu-Chek Comfort Curve T (11/23/24 05:15) Mild Insulin Ss Achs (11/23/24 05:15) Dextrose 50% Syringe (11/23/24 05:15) Vital Signs Date Time Temp Pulse Resp B/P (MAP) Pulse Ox O2 Delivery O2 Flow Rate FiO2 11/23/24 03:12 99 11/23/24 01:48 93 14 181/120 11/23/24 00:53 103 11/23/24 00:26 109 11/23/24 00:15 178/116 11/23/24 00:00 93 165/105 11/22/24 23:58 109 11/22/24 23:49 98.5 118 20 202/142 98 98.5 Laboratory Tests Test 11/23/24 00:02 11/23/24 05:01 White Blood Count 9.8 10^3/uL (4.4-10.8) Lactic Acid Level Pending Medications Medications Dose Ordered Sig/Jorge Route Start Time Stop Time Status Last Admin Dose Admin Labetalol HCl 20 mg ONCE ONCE IV 11/23/24 00:00 11/23/24 00:02 DC 11/23/24 00:00 20 MG Morphine Sulfate 2 mg ONCE ONCE IV 11/23/24 01:30 11/23/24 01:31 DC 11/23/24 01:48 2 MG Nitroglycerin 1 pkg ONCE ONCE TD 11/23/24 00:15 11/23/24 00:16 DC 11/23/24 00:15 1 PKG Potassium Chloride 40 meq ONCE ONCE PO 11/23/24 03:00 11/23/24 03:01 DC 11/23/24 04:30 40 MEQ Assessment/Plan Assessment/Plan Hypertensive crisis Presyncope, rule out cardiac causes Clonidine 0.1 mg daily, carvedilol 25 mg b.i.d., losartan 100 mg daily Monitor on telemetry Chest pain, acute WI ruled out Troponin WNL EKG shows sinus rhythm with borderline prolonged MN interval HFrEF with ejection fraction 30-35%, no exacerbation Continue GDM T with carvedilol, spironolactone, losartan Holding off IV fluids BNP approximately 100 06/2024 last echocardiogram: Mild concentric LVH, LVEF 30-35%, moderate diffuse hypokinesis of left ventricle, pseudo normal LV filling was observed History of dyslipidemia Continue atorvastatin 40 mg daily H pylori infection On metronidazole and azithromycin, and pantoprazole (evaluate adding bismuth). Insulin-dependent diabetes mellitus Sliding scale with basal insulin A1c ordered Monitor blood glucose Diabetes education Diabetic diet Questionable ileus CT abdomen shows ileus versus partial bowel obstruction Trial of metoclopramide Obesity class 1 with BMI 32 Counseled on lifestyle and diet Monitor for JOSÉ LUIS complication, consider CPAP if needed Depression Continue trazodone Chronic constipation Uses at home, ordered lactulose History of poor medical compliance /drug-seeking behavior DIET: Cardiac DVT PROPHYLAXIS: Lovenox GI PROPHYLAXIS: Protonix CODE STATUS: Goals of care discussed with patient, nurses at bedside for more than 35 minutes. Full code DISPOSITION: Med/surge Patient's status and plan discussed with the patient. Case discussed with Dr. Ford. Plan discussed with: Patient, Other (Nurses) My Orders Orders - FERN LOPEZ RESIDENT Procedure Category Date Status Time Hepatic Panel LAB 11/23/24 In Process 04:41 C-Reactive Protein LAB 11/23/24 In Process 04:41 Drug Screen LAB 11/23/24 Logged 04:41 Hemoglobin A1c LAB 11/23/24 In Process 04:41 Lactic Acid W/ Reflex LAB 11/23/24 In Process Order 04:41 Lipase LAB 11/23/24 In Process 04:41 Lipid Panel LAB 11/23/24 In Process 04:41 Magnesium LAB 11/23/24 In Process 04:41 Phosphorus LAB 11/23/24 In Process 04:41 PTPTT LAB 11/23/24 In Process 04:41 Thyroid Stimulating LAB 11/23/24 In Process Hormone 04:41 Urinalysis LAB 11/23/24 Logged 04:41 Vitamin B12 LAB 11/23/24 In Process 04:41 Vitamin D, 25-Hydroxy LAB 11/23/24 In Process 04:41 Admit ADMIT 11/23/24 Transmitted 05:04 Allergies JASWANT 11/23/24 Transmitted 05:04 Code Status CODE 11/23/24 Transmitted 05:04 Acetaminophen Tablet PHA 11/23/24 Transmitted (Tylenol Tablet) 06:00 Cardiac DIET 11/23/24 Transmitted Diet-2gna,Lofat,Lochol Breakfast Condition: Serious JASWANT 11/23/24 Transmitted 05:04 Lovenox 40mg PHA 11/23/24 Transmitted 05:15 Oxygen By Nasal RT 11/23/24 Transmitted Cannula 05:04 Clostridium Difficile YAZMIN 11/23/24 Transmitted Toxin 05:04 Lidocaine 5% Topical PHA 11/23/24 Transmitted Patch (Lidoderm 5% 05:15 Lidocaine 5% Topical PHA 11/23/24 Transmitted Patch (Lidoderm 5% 10:00 Trazodone Hcl PHA 11/23/24 Transmitted (Desyrel) 22:00 Spironolactone PHA 11/23/24 Transmitted (Aldactone) 10:00 Clonidine Hcl Tablet PHA 11/23/24 Transmitted (Catapres Tablet) 10:00 Atorvastatin (Lipitor) PHA 11/23/24 Transmitted 22:00 Carvedilol Tablet PHA 11/23/24 Transmitted (Coreg Tablet) 10:00 Losartan Tablet PHA 11/23/24 Transmitted (Cozaar Tablet) 10:00 Cyclobenzaprine PHA 11/23/24 Transmitted Tablet (Flexeril 05:15 Lactulose Oral PHA 11/23/24 Transmitted 10:00 Stool Occult Blood LAB 11/23/24 Transmitted 05:04 Metoclopramide Tablet PHA 11/23/24 Transmitted (Reglan Tablet) 05:15 Glucose Blood PHA 11/23/24 Transmitted (Accu-Chek Comfort 05:15 Mild Insulin Ss Achs PHA 11/23/24 Transmitted 05:15 Dextrose 50% Syringe PHA 11/23/24 Transmitted 05:15 Date of Service: Nov 23, 2024 Billing Provider: MARY FORD MD Common Visit Codes: [id number] INP/OBS CARE (HIGH) Secondary Visit Codes: [id number] CARE PLAN 30 MINUTES FERN LOPEZ RESIDENT Nov 23, 2024 05:41 ERIC BEAL RESIDENT Nov 23, 2024 06:10
[2024-11-23] MEDS ORDERED: ERGOCALCIFEROL 50,000 UNIT(1.25MG) CAP PO SCH (06:00)
[2024-11-23 06:11] LABS: INR 1.14 (0.9-1.15); Partial Thromboplastin Time 31.4 SEC (24.5-34.5); Prothrombin Time 11.9 sec (9.3-11.8)
[2024-11-23 06:15] LABS: Triglycerides 97 mg/dL (< 150)
[2024-11-23 06:17] LABS: Bilirubin, Direct 0.3 mg/dL (<0.3); Cholesterol < 50.0 mg/dL (< 200)
[2024-11-23 06:20] LABS: HDL Cholesterol 20 mg/dL (40-59)
[2024-11-23] MEDS: GABAPENTIN 300 MG CAP PO SCH (07:13)
[2024-11-23] MEDS: ACETAMINOPHEN 325 MG TAB PO SCH (07:13)
[2024-11-23] MEDS: SUCRALFATE 1 GM/10 ML ORAL SUSP PO SCH (07:14)
[2024-11-23] MEDS: CYCLOBENZAPRINE HCL 10 MG TAB PO PRN (07:14)
[2024-11-23] MEDS: METOCLOPRAMIDE HCL 10 MG TAB PO ONE (07:14)
[2024-11-23] MEDS: FUROSEMIDE 20 MG TAB PO SCH (07:14)
[2024-11-23] MEDS: LIDOCAINE 5% TOPICAL PATCH TOP ONE (07:15)
[2024-11-23] MEDS: ENOXAPARIN SOD 40 MG/0.4 ML SYRINGE SC ONE (07:15)
[2024-11-23] MEDS ORDERED: MORPHINE SULFATE 4 MG/ML SYR/VIAL IV PRN (08:00)
[2024-11-23 08:04] VITALS: BP 161/111; PULSE 106; RESP 14
[2024-11-23] MEDS ORDERED: INSULIN LANTUS (GLARGINE) 1 /0.01ml (100units/ml) SC SCH (10:00)
[2024-11-23] MEDS ORDERED: AZITHROMYCIN 500MG/ 250ML 250 ML IV SCH (10:00)
[2024-11-23] MEDS ORDERED: CARVEDILOL 12.5 MG TAB PO SCH (10:00)
[2024-11-23] MEDS ORDERED: LACTULOSE 20Gm/30ML SOLN PO SCH (10:00)
[2024-11-23] MEDS ORDERED: PANTOPRAZOLE 40 MG/10 ML VIAL INJ IV SCH (10:00)
[2024-11-23] MEDS ORDERED: SPIRONOLACTONE 25 MG TAB PO SCH (10:00)
[2024-11-23] MEDS ORDERED: LOSARTAN POTASSIUM 50 MG TAB PO SCH (10:00)
--- NOTE | 2024-11-23 13:06 | DVHDS2 ---
Discharge Summary Date of Admission Nov 23, 2024 at 05:51 Date of Discharge: Nov 23, 2024 Admitting Diagnosis Hypertensive crisis Presyncope, rule out cardiac causes Chest pain, acute IL ruled out HFrEF with ejection fraction 30-35%, no exacerbation History of dyslipidemia H pylori infection Insulin-dependent diabetes mellitus Questionable ileus Obesity class 1 with BMI 32 Depression Chronic constipation Labs/Diagnostic Data: Laboratory Results Test 11/23/24 05:01 11/23/24 00:02 Prothrombin Time 11.9 sec (9.3-11.8) Prothrombin Time INR 1.14 (0.9-1.15) Activated Partial Thromboplast Time 31.4 SEC (24.5-34.5) Lactic Acid Level 1.2 mmol/L (0.4-2.0) Troponin I High Sensitivity 14 ng/L (</=54) White Blood Count 9.8 10^3/uL (4.4-10.8) Red Blood Count 5.11 10^6/uL (4.5-5.90) Hemoglobin 15.5 g/dL (13.5-17.5) Hematocrit 43.4 % (41.0-53.0) Mean Corpuscular Volume 84.9 fL (80.0-100.0) Mean Corpuscular Hemoglobin 30.4 pg (28.0-32.0) Mean Corpuscular Hemoglobin Concent 35.8 g/dL (32.0-36.0) Red Cell Distribution Width 13.3 % (11.8-14.3) Platelet Count 256 10^3/uL (140-450) Mean Platelet Volume 8.6 fL (6.9-10.8) Neutrophils (%) (Auto) 60.6 % (37.0-80.0) Lymphocytes (%) (Auto) 24.1 % (10.0-50.0) Monocytes (%) (Auto) 13.3 % (0.0-12.0) Eosinophils (%) (Auto) 1.3 % (0.0-7.0) Basophils (%) (Auto) 0.7 % (0.0-2.0) Neutrophils # (Auto) 6.0 10 ^3/uL (1.6-8.6) Lymphocytes # (Auto) 2.4 10 ^3/uL (0.4-5.4) Monocytes # (Auto) 1.3 10 ^3/uL (0-1.3) Eosinophils # (Auto) 0.1 10 ^3/uL (0-0.8) Basophils # (Auto) 0.1 10 ^3/uL (0-0.2) Nucleated Red Blood Cells 0.1 % Sodium Level 142 mmol/L (136-145) Potassium Level 3.4 mmol/L (3.5-5.1) Chloride Level 109 mmol/L (98-107) Carbon Dioxide Level 23 mmol/L (20-31) Anion Gap 10 (5-15) Blood Urea Nitrogen 22 mg/dL (9-23) Creatinine 1.22 mg/dL (0.700-1.30) Glomerular Filtration Rate Calc 73 mL/min (>90) BUN/Creatinine Ratio 18.0 (10.0-20.0) Serum Glucose 127 mg/dL (74-106) Hemoglobin A1c 6.4 % A1C (<5.7) Calcium Level 8.6 mg/dL (8.7-10.4) Phosphorus Level 3.2 mg/dL (2.4-5.1) Magnesium Level 2.1 mg/dL (1.6-2.6) Total Bilirubin 0.5 mg/dL (0.2-1.0) Direct Bilirubin 0.3 mg/dL (<0.3) Aspartate Amino Transferase (AST) 47 U/L (13-40) Alanine Aminotransferase (ALT) 43 U/L (7-40) Alkaline Phosphatase 83 U/L (46-116) C-Reactive Protein High Sensitivity 0.05 mg/dL (<1.0) B-Type Natriuretic Peptide 111.74 pg/mL (0-100) Total Protein 6.7 g/dL (5.7-8.2) Albumin 4.0 g/dL (3.2-4.8) Triglycerides Level 97 mg/dL (< 150) Cholesterol Level < 50.0 mg/dL (< 200) LDL Cholesterol 18 mg/dL (< 100) HDL Cholesterol 20 mg/dL (40-59) Lipase 79 U/L (12-53) Vitamin D 25-Hydroxy 53.3 ng/mL (30.0-100) Thyroid Stimulating Hormone (TSH) 2.81 uIU/mL (0.55-4.78) Other Laboratory Tests 11/23/24 00:02 Brief Hx & Hospital Course: This is a 49 years old male with past medical history of congestive heart failure with the ejection fraction of 30-35%, diabetes type 2, hyperlipidemia, hypertension come because of dizziness and elevation of blood pressure. The patient said his blood pressure go up 200/100. Patient called an ambulance and was brought in. Patient also complained of left flank pain. Patient complain of chest pain without aggravating or relieving factor. Patient had ringing in his ear and headache. In the emergency department his blood pressure was 202/142. The patient was given IV labetalol, clonidine, and other medication such as losartan. Blood pressure improved to 160/100. Patient also had workup done . The patient's CT abdomen pelvis showed possible ileus versus small-bowel obstruction. Patient is supposed to have CT scan of the head. The patient also waiting for 2D echo however he grew inpatient and decided to leave against medical advice. The patient was educated that if he left prior to blood pressure treatment improved he might suffer from stroke or IL however he still choose to leave against medical advice.. Physical exam: HEENT: Normocephalic atraumatic pupils equal react to light and accommodation. Extraocular muscles intact, conjunctiva pink, oropharynx moist, no thrush, no exudate. Lymphatic: No lymphadenopathy Cardiovascular exam: S1, S2 was heard. No murmurs, rubs, gallops Lung: Clear on auscultation bilaterally, no wheeze, rale, rhonchi. GI: Abdominal soft, nondistended, nontenderness, positive bowel sounds. Extremity: No crepitus, cyanosis, edema. Pedal pulses present bilateral. Full range of motion. Skin: Normal turgor, no rash. Psych: Alert, oriented x3. Neurology: No focal deficits, cranial nerve II to XII grossly intact. This medical document was created using an electronic medical record system with [employer] direct computerized dictation system. Although this document has been carefully reviewed, there may still be some phonetic and typographical errors. These areas are purely typographical due to imperfections of the software programs, and do not reflect any compromise in the patient's medical care. Condition at Discharge: Guarded Final Diagnosis/Problems List Hypertensive crisis Presyncope, rule out cardiac causes Chest pain, acute IL ruled out HFrEF with ejection fraction 30-35%, no exacerbation History of dyslipidemia H pylori infection Insulin-dependent diabetes mellitus Questionable ileus Obesity class 1 with BMI 32 Depression Chronic constipation Discharge Disposition: AMA Discharge Instruct/Medications Scheduled Carvedilol (Carvedilol), 1 TAB PO BID, (Reported) Clonidine Hydrochloride (Clonidine Hcl), 1 TAB PO BIDPRN, (Reported) Duloxetine Hcl (Cymbalta), 1 CAP PO DAILY Ergocalciferol (Vitamin D), 1 CAP PO QWEEKLY, (Reported) Furosemide (Furosemide), 1 TAB PO BID, (Reported) Gabapentin (Gabapentin), 3 CAP PO TID, (Reported) Hydroxyzine Hcl (Hydroxyzine Hcl), 1 TAB PO DAILY, (Reported) Insulin Glargine (Lantus), 35 UNITS SC BID@1000,2200 Insulin Lispro (Humalog Kwikpen), 25 UNITS SC AC, (Reported) Linaclotide Base (Linzess), 1 CAP PO DAILY, (Reported) Lisinopril (Lisinopril), 1 TAB PO DAILY Metoclopramide HCl (Metoclopramide Hydrochlor), 1 TAB PO TID, (Reported) Nifedipine (Nifedipine Er), 1 TAB PO BID, (Reported) Nifedipine (Nifedipine ER), 90 MG PO DAILY Nitroglycerin (Ntrostat Sublingual), 0.4 MG SL PRN, (Reported) Pantoprazole Sodium Sesquihydr (Pantoprazole Sodium), 1 TAB PO BID, (Reported) Polyethylene Glycol 3350 (Gnp Clearlax), 17 GM PO DAILY, (Reported) Senna (Senna-Time), 2 TAB PO DAILY, (Reported) Sildenafil Citrate (Sildenafil Citrate), 1 TAB PO DAILY, (Reported) Sucralfate (Carafate Susp), 10 ML PO BID, (Reported) Tirzepatide (Mounjaro), 7.5 MG SUBCUT QWEEKLY, (Reported) Scheduled PRN Trazodone Hcl (Trazodone Hcl), 1 TAB PO QHSP PRN for PSYCHOPHYSIOLOGIC INSOMNIA, (Reported) Miscellaneous Medications Tramadol Hcl (Tramadol Hcl), 50 MG PO, (Reported) Discharge Statement: "Patient was advised to return to the ER or call 911 if any headaches, dizziness, shortness of breath, chest pain, abdominal pain, bleeding, fevers, or worsening of medical condition. Patient was counseled about treatment plan, medications, possible side effects, patientverbalized understanding. All questions were answered to the best of my ability. This discharge took greater then 30 minutes in planning, reviewing documentation, counseling the patient, and discussing with other team members." ASSESSMENT ASSESSMENT Assessment Date of Service: Nov 23, 2024 Billing Provider: KRISTIAN MOONEY MD Common Visit Codes: 74958-GLF/OBS SAME DATE (HIGH) KRISTIAN MOONEY MD Nov 23, 2024 13:06
[2024-11-23] MEDS ORDERED: ATORVASTATIN 20 MG TAB PO SCH (22:00)
[2024-11-24] MEDS ORDERED: ENOXAPARIN SOD 40 MG/0.4 ML SYRINGE SC SCH (10:00)
[2024-11-24] MEDS ORDERED: LIDOCAINE 5% TOPICAL PATCH TOP SCH (10:00)
--- NOTE | 2024-11-26 06:15 | ECG ---
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
--- NOTE | 2024-11-26 06:15 | ECG ---
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
--- NOTE | 2024-11-26 06:15 | ECG ---
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
== END 2024-11-23 09:15 | disposition left against medical advice (07) | DRG 199 ==
LOC: ER 23:46 → UNDOADMIN 11-23 05:04 → OVERFLOW 11-23 05:04
PROVIDERS: ATTEND Emergency Medicine
DX: I16.9 Hypertensive crisis, unspecified (principal); A04.8 Other specified bacterial intestinal infections; K56.7 Ileus, unspecified; I50.22 Chronic systolic (congestive) heart failure; E11.9 Type 2 diabetes mellitus without complications; E66.811 Obesity, class 1; E78.5 Hyperlipidemia, unspecified; I11.0 Hypertensive heart disease with heart failure; Z68.32 Body mass index [BMI] 32.0-32.9, adult; F32.A Depression, unspecified; K59.00 Constipation, unspecified; Z53.29 Procedure and treatment not carried out because of patient's decision for other reasons; I25.10 Atherosclerotic heart disease of native coronary artery without angina pectoris; Z91.148 Patient's other noncompliance with medication regimen for other reason; Z82.49 Family history of ischemic heart disease and other diseases of the circulatory system; Z79.4 Long term (current) use of insulin
CPT/HCPCS: 36415; 71045; 74177; 80048; 80061; 80076; 82306; 82607; 83036; 83605; 83690; 83735; 83880; 84100; 84443; 84484; 85025; 85610; 85730; 86141; 93005; 96365; 96366; 96372; 96375; 96376; 99291; G0378; J3490

== ENCOUNTER 2024-12-01 21:14 | Inpatient (IN) | payer MEDICAID ==
[~2024-12-01] VITALS: Ht 170.2 cm; Wt 100.1 kg
[2024-12-01 22:32] LABS: Nucleated Red Blood Cells % 0.1 %
[2024-12-01 22:34] LABS: Hematocrit 40.4 % (41.0-53.0); Mean Corpuscular Volume 85.4 fL (80.0-100.0)
--- NOTE | 2024-12-01 22:39 | DVH ---
CHEST RADIOGRAPH Indication: Chest pain Technique: 1 view Comparison: XY CHEST XRAY 1 VIEW on DOS: 11/23/24, XY CHEST XRAY 1 VIEW on DOS: 09/23/24, XY CHEST PORT ABLE on DOS: 09/01/24, XY CHEST PORTABLE on DOS: 08/30/24, XY CHEST PORTABLE on DOS: 08/13/24 FINDINGS: Lines and Tubes: None. Lungs/Pleura: No focal consolidation, pleural effusion or pneumothorax. Cardiomediastinum: Unremarkable. Other: No acute osseous abnormality. IMPRESSION: 1. No acute cardiopulmonary abnormality.
[2024-12-01 22:42] LABS: Albumin 4.3 g/dL (3.2-4.8); Anion Gap 12 (5-15); BUN/Creatinine Ratio 9.4 (10.0-20.0); Bilirubin, Total 0.5 mg/dL (0.2-1.0); Calcium 9.6 mg/dL (8.7-10.4); Carbon Dioxide 31 mmol/L (20-31); Chloride 100 mmol/L (98-107); Sodium 143 mmol/L (136-145); Total Protein 7.5 g/dL (5.7-8.2)
[2024-12-01 22:43] LABS: Alanine Aminotransferase 50 U/L (7-40); Alkaline Phosphatase 119 U/L (46-116); Blood Urea Nitrogen 8 mg/dL (9-23); Glucose 177 mg/dL (74-106); Potassium 3.1 mmol/L (3.5-5.1)
[2024-12-01] MEDS: ONDANSETRON ODT 4 MG TAB PO ONE (22:47)
[2024-12-01] MEDS: HYDROcodone-ACET 10/325MG TAB PO ONE (22:49)
[2024-12-01 23:25] LABS: Mean Corpuscular Hemoglobin 30.6 pg (28.0-32.0)
[2024-12-01 23:26] LABS: Hemoglobin 13.6 g/dL (13.5-17.5)
[2024-12-02] MEDS: HYDROmorphone HCL 2 MG/ML VL/or syr IV ONE (00:34)
[2024-12-02] MEDS: IOHEXOL 300 MG/ML 100ML BOTTLE IJ ONE (00:34)
[2024-12-02 00:43] VITALS: RESP 17; O2SAT 97
--- NOTE | 2024-12-02 00:58 | DVH ---
Exam: CT CT AB PEL WITH IV CON ONLY History: Diffuse left-sided abdominal pain COMPARISON: CT CT AB PEL WITH IV CON ONLY on DOS: 11/23/24, CT CT AB PEL WO CON-NO ORAL OR IV on DOS: 09/23/24, MRI MRI ABDOMEN W AND WO on DOS: 09/04/24, CT CT ABD PELVIS W CON-ORAL IV on DOS: 09/02/24, CT CT AB PEL WO CON-NO ORAL OR IV on DOS: 08/21/24 Technique: Multidetector spiral CT of the abdomen and pelvis was performed from lung bases to pubic s ymphysis. Intravenous contrast was administered during this examination. Portal venous imaging was o btained. Axial, coronal and sagittal multiplanar reformats were performed by the technologist on a [employer] workstation. Radiation Dose : 1. Abdomen/Pelvis: CTDIvol 21.61 mGy, DLP 1103.45 mGy*cm. CONTRAST: Type of contrast: Omnipaque 300 Contrast injected: 100 ml Findings: Lung Bases: No acute or significant lung base finding. Cardiomegaly. No pleural or pericardial effus ion. Liver: The liver is normal in size. No focal lesions. Normal hepatic vascular enhancement. Gallbladder and Biliary Tree: Unremarkable Spleen: Unremarkable Pancreas: The pancreas is normal in appearance without focal lesions or abnormal enhancement. Adrenal Glands: Unremarkable Kidneys: No hydronephrosis. Bladder: Unremarkable Bowel: The stomach is grossly normal in appearance. Small bowel and colon are normal in caliber and d istribution. The appendix is normal. Ascites: Absent Lymphadenopathy: No mesenteric, retroperitoneal or periportal lymphadenopathy. Abdominal Wall and Mesentery: Unremarkable. Vasculature: The visualized abdominal aorta is normal in size and caliber. Abdominal and pelvic vess els demonstrate normal enhancement. Pelvic Organs: Unremarkable Musculoskeletal: No aggressive focal bony lesions, acute fractures or dislocation. IMPRESSION: 1. No acute abdominal or pelvic finding. 2. Cardiomegaly. Radiation optimization: All CT scans at this facility use at least one of these dose optimization john hniques: automated exposure control mA and/or kV adjustment per patient size (includes targeted exam s where dose is matched to clinical indication) or iterative reconstruction.
[2024-12-02] MEDS ORDERED: InsuLIN REG 1unit/0.01ml Soln (100units/ml) IV ONE (01:00)
[2024-12-02] MEDS: SODIUM CHLORIDE 0.9% 1,000 ML IV ONE (01:00)
[2024-12-02] MEDS: InsuLIN REG 1unit/0.01ml Soln (100units/ml) SC ONE (01:28)
[2024-12-02] MEDS: POTASSIUM CHL 20MEQ/100ML 100 ML IV SCH (01:36)
--- NOTE | 2024-12-02 01:38 | ECG ---
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
--- NOTE | 2024-12-02 01:56 | ED.PDOC ---
HPI Comments This patient is an obese 49-year-old male who arrives the ED today for evaluation of chest pain concerns for the past two days as well as blood pressure issues. Patient states he has a history of poorly controlled hypertension, but states that he has had crushing chest pain concerns. Patient goes on to state that he has additional abdominal pain complaints and is supposed to be utilizing antibiotics for an intra-abdominal concern. Patient states intermittent nausea with the vomiting. Patient was afebrile at arrival with a blood pressure of 201/118 and a heart rate of 120. Chief Complaint: Chest Pain Time Seen by MD: 21:26 Primary Care Provider: ? Reviewed Notes: Nurses Notes Allergies: Coded Allergies: No Known Drug Allergy (Verified Allergy, Unknown, 12/24/23) Home Meds Active Scripts Nifedipine (Nifedipine ER) 30 Mg Tab, 90 MG PO DAILY for 30 Days, #90 TAB 0 Refills Prov:RUY CARUSO RESIDENT 09/25/24 Lisinopril (Lisinopril) 40 Mg Tab, 1 TAB PO DAILY, #30 TAB 1 Refill Prov:CAROLINA OVALLE MD 08/23/24 Duloxetine Hcl (Cymbalta) 20 Mg Cap, 1 CAP PO DAILY for 30 Days, #30 CAP Prov:ALE HARRIS RESIDENT 08/15/24 Insulin Glargine (Lantus) 100 Unit/Ml Inj, 35 UNITS SC BID@1000,2200 for 30 Days, #1 INJ Prov:CORRINE GRAHAM RESIDENT 12/28/23 Reported Medications Sildenafil Citrate (Sildenafil Citrate) 20 Mg Tab, 1 TAB PO DAILY for 30 Days, #30 09/24/24 Sucralfate (CARAFATE SUSP) 1 Gm/10 Ml Ss, 10 ML PO BID for 30 Days, #600 09/24/24 Senna (Senna-Time) 8.6 Mg Tab, 2 TAB PO DAILY for 30 Days, #60 09/24/24 Tirzepatide (Mounjaro) 7.5 Mg/0.5 Ml Inj, 7.5 MG SUBCUT QWEEKLY for 28 Days, #2 09/24/24 Ergocalciferol (Vitamin D) 50,000 Unit Cap, 1 CAP PO QWEEKLY for 28 Days, #4 09/24/24 Gabapentin (Gabapentin) 300 Mg Cap, 3 CAP PO TID for 30 Days, #270 09/24/24 Metoclopramide HCl (Metoclopramide Hydrochlor) 10 Mg Tab, 1 TAB PO TID for 30 Days, #90 09/24/24 Pantoprazole Sodium Sesquihydr (Pantoprazole Sodium) 40 Mg Tab, 1 TAB PO BID for 30 Days, #60 09/24/24 Polyethylene Glycol 3350 (Gnp Clearlax) 17 Gm/Scoop Pow, 17 GM PO DAILY for 30 Days, #510 09/24/24 Nifedipine (Nifedipine Er) 30 Mg Tab, 1 TAB PO BID for 30 Days, #60 09/24/24 Carvedilol (Carvedilol) 12.5 Mg Tab, 1 TAB PO BID for 30 Days, #60 09/24/24 Clonidine Hydrochloride (Clonidine Hcl) 0.1 Mg Tab, 1 TAB PO BIDPRN for 30 Days, #60 09/24/24 Insulin Lispro (Humalog Kwikpen) 100 Unit/Ml Inj, 25 UNITS SC AC for 40 Days, #30 08/14/24 Trazodone Hcl (Trazodone Hcl) 50 Mg Tab, 1 TAB PO QHSP PRN for PSYCHOPHYSIOLOGIC INSOMNIA for 30 Days, #30 08/14/24 Furosemide (Furosemide) 20 Mg Tab, 1 TAB PO BID for 90 Days, #180 08/14/24 Hydroxyzine Hcl (Hydroxyzine Hcl) 25 Mg Tab, 1 TAB PO DAILY for 30 Days, #30 08/14/24 Linaclotide Base (LINZESS) 145 Mcg Cap, 1 CAP PO DAILY for 30 Days, #30 08/14/24 Nitroglycerin (NTROSTAT SUBLINGUAL) 0.4 Mg Sl, 0.4 MG SL PRN, TAB *MAY REPEAT EVERY 5 MINUTES X 3 TOTAL IF NO RELIEF, INITIATE ANALGESIC THERAPY. NOTIFY PHYSICIAN *Do not crush. 12/25/23 Tramadol Hcl (Tramadol Hcl) 50 Mg Tab, 50 MG PO, TAB 12/25/23 Information Source: Patient Mode of Arrival: Ambulatory Severity: Moderate Timing: Days Duration: Since onset Prehospital treatment: Treatment Location: Chest (R), Chest (L), Substernal Quality: Squeezing, Pressure, Tightness Onset: At Rest Cardiac Risk Factors: HTN PE Risk Factors: None History of: Similar pain in past Associated Signs and Symptoms: Abdominal Pain Past Medical History PAST MEDICAL HISTORY: CAD, CHF, DM, High Lipids, HTN Surgical History: Denies all surgeries Family History Family History: Reviewed,noncontributory to illness Social History Smoker: Non-Smoker Alcohol: Denies ETOH Use Drugs: Denies Drug Use Lives In: Home Constitutional: denies: chills, diaphoresis, fatigue, fever, malaise, sweats, weakness, others EENTM: denies: blurred vision, double vision, ear bleeding, ear discharge, ear drainage, ear pain, ear ringing, eye pain, eye redness, hearing loss, mouth pain, mouth swelling, nasal discharge, nose bleeding, nose congestion, nose pain, photophobia, tearing, throat pain, throat swelling, voice changes, others Respiratory: denies: cough, hemoptysis, orthopnea, SOB at rest, shortness of breath, SOB with excertion, stridor, wheezing, others Cardiovascular: reports: chest pain; denies: dizzy spells, diaphoresis, Dyspnea on exertion, edema, irregular heart beat, left arm pain, lightheadedness, palpitations, PND, syncope, others Gastrointestinal: reports: abdominal pain, nausea; denies: abdomen distended, blood streaked bowels, constipated, diarrhea, dysphagia, difficulty swallowing, hematemesis, melena, poor appetite, poor fluid intake, rectal bleeding, rectal pain, vomiting, others Genitourinary: denies: burning, dysuria, flank pain, frequency, hematuria, incontinence, penile discharge, penile sore, pain, testicle pain, testicle swelling, urgency, others Neurological: denies: dizziness, fainting, headache, left sided numbness, left sided weakness, numbness, paresthesia, pre-existing deficit, right sided numbness, right sided weakness, seizure, speech problems, tingling, tremors, weakness, others Musculoskeletal: denies: back pain, gout, joint pain, joint swelling, muscle pain, muscle stiffness, neck pain, others Integumetry: denies: bruises, change in color, change in hair/nails, dryness, laceration, lesions, lumps, rash, wounds, others Allergic/Immunocompromised: denies: Difficulty Healing, Frequent Infections, Hives, Itching, others Hematologic/Lymphatic: denies: anemia, blood clots, easy bleeding, easy bruising, swollen glands, others Endocrine: denies: excessive hunger, excessive sweating, excessive thirst, excessive urination, flushing, intolerance to cold, intolerance to heat, unexplained weight gain, unexplained weight loss, others Psychiatric: denies: anxiety, bipolar disorder, depression, hopeless, panic disorder, schizophrenia, sleepless, suicidal, others Physical Exam General Appearance: Moderate Distress ([id number] distress due to abdominal pain, chest pain and blood pressure concerns.), Obese HEENT: Normal ENT Inspection, Pharynx Normal, TMs Normal Neck: Full Range of Motion, Non-Tender, Normal, Normal Inspection Respiratory: Chest Non-Tender, Lungs Clear, No Accessory Muscle Use, No Respiratory Distress, Normal Breath Sounds Cardiovascular: No Edema, No JVD, No Murmur, No Gallop, Normal Peripheral Pul ses, Tachycardia Breast Exam: Deferred Gastrointestinal: Other (Diffuse left-sided tenderness to palpation throughout. No pulsatile masses. Abdomen was mildly rigid.) Genitalia: Deferred Pelvic: Deferred Rectal: Deferred Extremities: Normal capillary refill, No pedal edema Neurologic: Alert Cerebellar Function: NOT DONE Reflexes: NOT DONE Skin: Dry, Normal Color, Warm Lymphatic: No Adenopathy Was a procedure done? Was a procedure done?: No CP Differential Dx Differential Diagnosis: A-fib, A-Flutter, Atrial Dysrhythmia, AV Block 1st Degree, OK Differential Diagnosis: CHF, HTN Essential, HTN Accelerated Differential Diagnosis: Chest Wall Pain, Costochondritis, Pneumonia X-Ray, Labs, Meds, VS Vital Signs Date Time Temp Pulse Resp B/P (MAP) Pulse Ox O2 Delivery O2 Flow Rate FiO2 12/02/24 00:43 98.4 105 17 195/118 (143) 97 98.4 12/02/24 00:43 17 97 Room Air* 0 21 12/02/24 00:34 107 16 205/109 12/02/24 00:16 205/109 12/02/24 00:16 98.7 107 19 205/109 (141) 97 98.7 12/01/24 22:49 201/118 12/01/24 22:36 99.1 116 19 201/118 (145) 96 99.1 12/01/24 21:40 120 12/01/24 21:34 98.8 122 20 189/134 98 98.8 12/01/24 21:28 120 Lab Test 12/02/24 01:02 12/01/24 23:16 12/01/24 22:03 Range/Units POC Glucose 270 H 70-106 mg/dl Troponin I High Sensitivity 17 16 </=54 ng/L White Blood Count 11.0 H 4.4-10.8 10^3/uL Red Blood Count 4.73 4.5-5.90 10^6/uL Hemoglobin 13.6 13.5-17.5 g/dL Hematocrit 40.4 L 41.0-53.0 % Mean Corpuscular Volume 85.4 80.0-100.0 fL Mean Corpuscular Hemoglobin 30.6 28.0-32.0 pg Mean Corpuscular Hemoglobin Concent 35.5 32.0-36.0 g/dL Red Cell Distribution Width 13.4 11.8-14.3 % Platelet Count 292 140-450 10^3/uL Mean Platelet Volume 8.4 6.9-10.8 fL Neutrophils (%) (Auto) 64.4 37.0-80.0 % Lymphocytes (%) (Auto) 21.4 10.0-50.0 % Monocytes (%) (Auto) 11.0 0.0-12.0 % Eosinophils (%) (Auto) 2.2 0.0-7.0 % Basophils (%) (Auto) 1.0 0.0-2.0 % Neutrophils # (Auto) 7.1 1.6-8.6 10 ^3/uL Lymphocytes # (Auto) 2.4 0.4-5.4 10 ^3/uL Monocytes # (Auto) 1.2 0-1.3 10 ^3/uL Eosinophils # (Auto) 0.2 0-0.8 10 ^3/uL Basophils # (Auto) 0.1 0-0.2 10 ^3/uL Nucleated Red Blood Cells 0.1 % D-Dimer, Quantitative 0.26 0.0-0.49 mg/L FEU Sodium Level 143 136-145 mmol/L Potassium Level 3.1 L 3.5-5.1 mmol/L Chloride Level 100 98-107 mmol/L Carbon Dioxide Level 31 20-31 mmol/L Anion Gap 12 5-15 Blood Urea Nitrogen 8 L 9-23 mg/dL Creatinine 0.85 0.700-1.30 mg/dL Glomerular Filtration Rate Calc 107 >90 mL/min BUN/Creatinine Ratio 9.4 L 10.0-20.0 Serum Glucose 177 H 74-106 mg/dL Calcium Level 9.6 8.7-10.4 mg/dL Total Bilirubin 0.5 0.2-1.0 mg/dL Aspartate Amino Transferase (AST) 47 H 13-40 U/L Alanine Aminotransferase (ALT) 50 H 7-40 U/L Alkaline Phosphatase 119 H 46-116 U/L B-Type Natriuretic Peptide 98.38 0-100 pg/mL Total Protein 7.5 5.7-8.2 g/dL Albumin 4.3 3.2-4.8 g/dL Current Medications Medications (Trade) Dose Ordered Sig/Jorge Route Start Time Stop Time Status Last Admin Acetaminophen/ Hydrocodone Bitart ([place] 10/325MG Tab) 1 tab ONCE ONCE PO 12/01/24 21:45 12/01/24 21:47 DC 12/01/24 22:49 Ondansetron HCl (Zofran Po) 4 mg ONCE ONCE PO 12/01/24 21:45 12/01/24 21:47 DC 12/01/24 22:47 Clonidine HCl (Catapres Tablet) 0.2 mg ONCE ONCE PO 12/01/24 21:45 12/01/24 21:47 DC 12/01/24 22:49 Hydromorphone HCl (Dilaudid Injection) 0.5 mg ONCE ONCE IV 12/02/24 00:15 12/02/24 00:16 DC 12/02/24 00:34 Sodium Chloride 1,000 ml @ 1,000 mls/hr Q1H ONCE IV 12/02/24 01:00 12/02/24 01:59 12/02/24 01:00 Insulin Human Regular (InsuLIN R) 10 units ONCE ONCE SC 12/02/24 01:30 12/02/24 01:31 DC 12/02/24 01:28 X-Ray, Labs, Meds, VS Comment All studies performed the ED were evaluated by me personally. Serum studies were remarkable for a hyperglycemic state, hypokalemia and transaminitis. Chest x-ray was unremarkable for any acute intrapulmonary concerns, neoplasms or consolidation. CT of the abdomen and pelvis was unremarkable for any acute intra-abdominal concerns, but revealed a cardiomegaly. EKG revealed a sinus tachycardia with a rate of 120. LAE with possible biatrial enlargement. Nonspecific intraventricular conduction delay was noted. ME interval of 173 and QT interval 463. Due to the difficulty in managing the patient's blood pressure, patient will be admitted for a cardiac evaluation as well as blood pressure medication review and additional studies as needed. Patient's blood sugar will be controlled while at the facility. Time of 1ST Reevaluation: 01:54 Reevaluation 1ST: Improved Consultation: PCP, Cardiology Patient Education/Counseling: Diagnosis, Treatment Family Education/Counseling: Diagnosis, Treatment SEPSIS Sepsis Screen Date sepsis recognized/suspect: Dec 01, 2024 Time Sepsis recognized/suspect: 2137 Recent Procedure: No On Antibiotic Therapy: No Respiratory Rate >20: No Heart Rate >90: Yes Temp<36 C (96.8 F) or >38.3 C: No SBP <90 or MAP <65 mmHG: No New Acute Mental Status Change: No Is the patient on CPAP, BIPAP,: No Physician Orders Chest Portable (12/01/24 21:45) Heplock Iv (12/01/24 21:45) Urinalysis (12/01/24 21:45) Ct Ab Pel With Iv Con Only (12/02/24 00:10) Potassium Chl 20meq/100ml (12/02/24 01:00) Sodium Chloride 0.9% (12/02/24 01:00) Vital Signs Date Time Temp Pulse Resp B/P (MAP) Pulse Ox O2 Delivery O2 Flow Rate FiO2 12/02/24 00:43 98.4 105 17 195/118 (143) 97 98.4 12/02/24 00:43 17 97 Room Air* 0 21 12/02/24 00:34 107 16 205/109 12/02/24 00:16 205/109 12/02/24 00:16 98.7 107 19 205/109 (141) 97 98.7 12/01/24 22:49 201/118 12/01/24 22:36 99.1 116 19 201/118 (145) 96 99.1 12/01/24 21:40 120 12/01/24 21:34 98.8 122 20 189/134 98 98.8 12/01/24 21:28 120 Laboratory Tests Test 12/01/24 22:03 White Blood Count 11.0 10^3/uL (4.4-10.8) H Medications Medications Dose Ordered Sig/Jorge Route Start Time Stop Time Status Last Admin Dose Admin Acetaminophen/ Hydrocodone Bitart 1 tab ONCE ONCE PO 12/01/24 21:45 12/01/24 21:47 DC 12/01/24 22:49 Clonidine HCl 0.2 mg ONCE ONCE PO 12/01/24 21:45 12/01/24 21:47 DC 12/01/24 22:49 Hydromorphone HCl 0.5 mg ONCE ONCE IV 12/02/24 00:15 12/02/24 00:16 DC 12/02/24 00:34 Insulin Human Regular 10 units ONCE ONCE SC 12/02/24 01:30 12/02/24 01:31 DC 12/02/24 01:28 Ondansetron HCl 4 mg ONCE ONCE PO 12/01/24 21:45 12/01/24 21:47 DC 12/01/24 22:47 Sodium Chloride 1,000 ml @ 1,000 mls/hr Q1H ONCE IV 12/02/24 01:00 12/02/24 01:59 12/02/24 01:00 Departure 1 Departure Time of Disposition: 01:55 Impression: Primary Impression: Hypertensive emergency Additional Impressions: Chest pain Diabetes mellitus with hyperglycemia Hypokalemia Cardiomegaly Disposition: 09 ADMITTED INPATIENT Condition: Stable Discharged With: Self Critical Care Note Critical Care Time?: No Stability Stability form required: No Heart Score Heart Score: Heart Score Response (Comments) Value History Slightly Suspicious 0 EKG Repolarization Disturb 1 Age 45-64 1 Risk Factors 1 or 2 risk factors 1 Troponin Normal limit 0 Total 3 ESPERANZA MUNOZ PAC Dec 02, 2024 01:56
[2024-12-02] MEDS ORDERED: DEXTROSE (50%) 50ML SYRG IV PRN (03:45)
[2024-12-02] MEDS ORDERED: ACETAMINOPHEN 325 MG TAB PO PRN (03:45)
[2024-12-02 04:19] LABS: Hematocrit 37.0 % (41.0-53.0); Hemoglobin 13.5 g/dL (13.5-17.5); Mean Corpuscular Volume 86.6 fL (80.0-100.0); Nucleated Red Blood Cells % 0.0 %
--- NOTE | 2024-12-02 04:21 | DVHHP2 ---
History of Present Illness Reason for Visit: Chest pain History of Present Illness The patient is a 49-year-old male with past medical history of CHF, Coronary artery disease, DM, hyperlipidemia, and hypertension who presented to [facility] ED with complaint of chest pain for the past 2 days. Patient reports he has been experiencing chest pain radiating to his abdomen rating 8/10 numeric scale, associated intermittent nausea, elevated blood pressure, getting worse that prompted this visit. Patient states that he had colonoscopy done outside hospital, but outcome results were not discussed with him. Patient was seen and evaluated in the ED, laboratory data shows WBC 11.0, platelets 292, sodium 143, potassium 3.1, BUN 8, creatinine 0.85, GFR 107, glucose 177, calcium 9.6, BNP 98.38, troponin 16, AST 47, ALT 50, blood pressure 173/109, heart rate 104, temperature 98.4 F, O2 saturation 97% on room air. Chest x-ray show no acute cardiopulmonary disease. CT of the abdomen/pelvis showed no acute abdominal or pelvic finding, cardiomegaly. Please see medication orders section in the computer. On my assessment, patient denied chest pain at this moment, no headache, no dizziness, shortness of breaths, no diarrhea at this moment, nausea, vomiting, no fever, no chills. Patient was admitted for further evaluation and medical management. Past Medical History CAD, CHF, DM, High Lipids, HTN Past Surgical History Colonoscopy Family History Reviewed, noncontributory to the management of this case. Past Social History The patient lives at home, denies smoking, alcohol or illicit drugs abuse. Review of Systems Constitutional: No: Fever, Chills, Sweats, Weakness, Malaise, Other Eyes: No: Pain, Vision change, Conjunctivae inflammation, Eyelid inflammation, Other, Redness ENT: No: Ear pain, Ear discharge, Nose pain, Nose discharge, Nose congestion, Mouth pain, Mouth swelling, Throat pain, Throat swelling, Other Respiratory: No: Cough, Dry, Shortness of breath, SOB with excertion, Wheezing, Hemoptysis, Pleuritic Pain, Sputum, Wheezing, Other Cardiovascular: Chest Pain; No: Palpitations, Orthopnea, Paroxysmal Noc. Dyspnea, Edema, Lt Headedness, Other Gastrointestinal: Nausea, Abdominal Pain; No: Vomiting, Diarrhea, Constipation, Melena, Hematochezia, Other Genitourinary: No Dysuria, No Frequency, No Incontinence, No Hematuria, No Retention, No Other Musculoskeletal: No: other, neck pain, shoulder pain, arm pain, back pain, hand pain, leg pain, foot pain Skin: No: Rash, Lesions, Jaundice, Bruising, Other Neurological: No: Weakness, Numbness, Incoordination, Change in speech, Confusion, Seizures, Other Allergies: Coded Allergies: No Known Drug Allergy (Verified Allergy, Unknown, 12/24/23) Medications Current Medications Medications Dose Ordered Sig/Jorge Route Start Time Stop Time Status Last Admin Dose Admin Potassium Chloride 100 ml @ 50 mls/hr Q2H IV 12/02/24 01:00 12/02/24 04:59 12/02/24 03:25 50 MLS/HR Clonidine HCl 0.1 mg Q4HP PRN PO 12/02/24 03:45 12/02/24 03:54 0.1 MG Trazodone HCl 50 mg HS PO 12/02/24 22:00 Carvedilol 12.5 mg Q12HR PO 12/02/24 10:00 Nifedipine 30 mg DAILY PO 12/02/24 10:00 Diagnostic Test (Pha) 1 strip Q6HR 12/02/24 06:00 Insulin Human Regular Q6HR SC 12/02/24 06:00 Dextrose 50 ml UD PRN IV 12/02/24 03:45 Sodium Chloride 10 ml Q8HR IV 12/02/24 06:00 Acetaminophen/ Hydrocodone Bitart 1 tab Q4HP PRN PO 12/02/24 03:45 Ondansetron HCl 4 mg Q4HP PRN IV 12/02/24 03:45 Docusate Sodium 100 mg BIDPRN PRN PO 12/02/24 03:45 Acetaminophen 650 mg Q6HP PRN PO 12/02/24 03:45 Exam Vital Signs Vital Signs Date Time Temp Pulse Resp B/P (MAP) Pulse Ox O2 Delivery O2 Flow Rate FiO2 12/02/24 03:54 170/112 12/02/24 02:45 107 14 92 12/02/24 00:43 98.4 98.4 12/02/24 00:43 Room Air* 0 21 General Appearance: Alert, Oriented X3, Cooperative, No acute distress HEENT: Atraumatic, PERRLA, EOMI, Mucous membr. moist/pink Respiratory: Clear to auscultation, Normal air movement Cardiovascular: Regular rate, Normal S1, Normal S2, No murmurs Abdominal: Normal bowel sounds, Soft, No hepatospenomegaly, No masses, Other (Reports tenderness) Extremities: No clubbing, No cyanosis, No edema, Normal pulses, No tenderness/swelling Skin: No rashes, No breakdown, No significant lesion Neuro: Normal gait, Normal speech, Strength at 5/5 X4 ext, Normal tone, Sensation intact, Cranial nerves 3-12 NL, Reflexes 2+ Psych/Mental Status: Mental status NL, Mood NL Labs/Xrays Labs Test 12/02/24 04:02 12/02/24 01:02 12/01/24 23:16 12/01/24 22:03 Range/Units POC Glucose 270 H 70-106 mg/dl Troponin I High Sensitivity 17 </=54 ng/L Eosinophils (%) (Auto) 2.2 0.0-7.0 % Eosinophils # (Auto) 0.2 0-0.8 10 ^3/uL Basophils # (Auto) 0.1 0-0.2 10 ^3/uL Nucleated Red Blood Cells 0.1 % D-Dimer, Quantitative 0.26 0.0-0.49 mg/L FEU B-Type Natriuretic Peptide 98.38 0-100 pg/mL PATIENT: EULOGIO LAUGHLIN JR ACCT: [id number] UNIT: [id number] : 1975 LOC: ER ROOM / BED: / AGE / SEX: 49 / M ADM STATUS: REG ER SERVICE 0010 ORDERING PHYSICIAN: ESPERANZA MUNOZ PAC PROCEDURE(s): ABPLIV - CT AB PEL WITH IV CON ONLY REASON: Diffuse left-sided abdominal pain ORDER NUMBER(s): [id number], ACCESSION NUMBER(s): [id number] Exam: CT CT AB PEL WITH IV CON ONLY History: Diffuse left-sided abdominal pain COMPARISON: CT CT AB PEL WITH IV CON ONLY on DOS: 11/23/24, CT CT AB PEL WO CON- NO ORAL OR IV on DOS: 09/23/24, MRI MRI ABDOMEN W AND WO on DOS: 09/04/24, CT CT ABD PELVIS W CON-ORAL IV on DOS: 09/02/24, CT CT AB PEL WO CON-NO ORAL OR IV on DOS: 08/21/24 Technique: Multidetector spiral CT of the abdomen and pelvis was performed from lung bases to pubic symphysis. Intravenous contrast was administered during this examination. Portal venous imaging was obtained. Axial, coronal and sagittal multiplanar reformats were performed by the technologist on a separate workstation. Radiation Dose:1. Abdomen/Pelvis: CTDIvol 21.61 mGy, DLP 1103.45 mGy*cm. CONTRAST: Type of contrast: Omnipaque 300 Contrast injected: 100 ml Findings: Lung Bases: No acute or significant lung base finding. Cardiomegaly. No pleural or pericardial effusion. Liver: The liver is normal in size. No focal lesions. Normal hepatic vascular enhancement. Gallbladder and Biliary Tree: Unremarkable Spleen: Unremarkable Pancreas: The pancreas is normal in appearance without focal lesions or abnormal enhancement. Adrenal Glands: Unremarkable Kidneys: No hydronephrosis. Bladder: Unremarkable Bowel: The stomach is grossly normal in appearance. Small bowel and colon are normal in caliber and distribution. The appendix is normal. Ascites: Absent Lymphadenopathy: No mesenteric, retroperitoneal or periportal lymphadenopathy. Abdominal Wall and Mesentery: Unremarkable. Vasculature: The visualized abdominal aorta is normal in size and caliber. Abdominal and pelvic vessels demonstrate normal enhancement. Pelvic Organs: Unremarkable Musculoskeletal: No aggressive focal bony lesions, acute fractures or dislocation. IMPRESSION: 1. No acute abdominal or pelvic finding. 2. Cardiomegaly. ORDERING PHYSICIAN: ESPERANZA MUNOZ PAC PROCEDURE(s): CXRP - CHEST PORTABLE REASON: Chest pain ORDER NUMBER(s): [id number], ACCESSION NUMBER(s): [id number] CHEST RADIOGRAPH Indication: Chest pain Technique: 1 view Comparison: XY CHEST XRAY 1 VIEW on DOS: 11/23/24, XY CHEST XRAY 1 VIEW on DOS: 09/23/24, XY CHEST PORTABLE on DOS: 09/01/24, XY CHEST PORTABLE on DOS: 08/30/24, XY CHEST PORTABLE on DOS: 08/13/24 FINDINGS: Lines and Tubes: None. Lungs/Pleura: No focal consolidation, pleural effusion or pneumothorax. Cardio-mediastinum: Unremarkable. Other: No acute osseous abnormality. IMPRESSION: 1. No acute cardiopulmonary abnormality. SEPSIS Sepsis Screen Date sepsis recognized/suspect: Dec 01, 2024 Time Sepsis recognized/suspect: 2138 Recent Procedure: No On Antibiotic Therapy: No Respiratory Rate >20: No Heart Rate >90: Yes Temp<36 C (96.8 F) or >38.3 C: No SBP <90 or MAP <65 mmHG: No New Acute Mental Status Change: No Is the patient on CPAP, BIPAP,: No Physician Orders Chest Portable (12/01/24 21:45) Heplock Iv (12/01/24 21:45) Urinalysis (12/01/24 21:45) Ct Ab Pel With Iv Con Only (12/02/24 00:10) Potassium Chl 20meq/100ml (12/02/24 01:00) Complete Blood Count (12/02/24 04:00) Comprehensive Metabolic Panel (12/02/24 04:00) Clonidine Hcl Tablet (Catapres Tablet) (12/02/24 03:45) Trazodone Hcl (Desyrel) (12/02/24 22:00) Carvedilol Tablet (Coreg Tablet) (12/02/24 10:00) Nifedipine Er (Procardia Xl (Time-Releas (12/02/24 10:00) Consistent Carb(Ccho)Diabetes (12/02/24 Breakfast) Glucose Blood (Accu-Chek Comfort Curve T (12/02/24 06:00) Insulin R (Human) (Insulin R) (12/02/24 06:00) Dextrose 50% Syringe (12/02/24 03:45) Allergies (12/02/24 03:32) Code Status (12/02/24 03:32) Sodium Chloride Lock (Saline Lock Ns) (12/02/24 06:00) Oxygen Per Hour (12/02/24 03:32) Hydrocodone-Acet 5/325mg Tab (Jber /32 (12/02/24 03:45) Ondansetron Hcl (Zofran) (12/02/24 03:45) Docusate Sodium Capsule (Colace Capsule) (12/02/24 03:45) Complete Blood Count (12/03/24 04:00) Comprehensive Metabolic Panel (12/03/24 04:00) Condition: Serious (12/02/24 03:32) Acetaminophen Tablet (Tylenol Tablet) (12/02/24 03:45) Bedrest With Bathroom Privileg (12/02/24 03:32) Maintain Bed Rest (12/02/24 03:32) Sequential Compression Device (12/02/24 ) Lactic Acid W/ Reflex Order (12/02/24 04:12) Admit (12/02/24 04:19) Nitroglycerin Sublingual (Ntrostat Subli (12/02/24 04:30) Morphine Sulfate Injection (12/02/24 04:30) Stat Ekg For Chest Pain (12/02/24 04:19) Notify Of Changes From Base (12/02/24 04:19) Escalator Installer For 24 Hours (12/02/24 04:19) Emergency Dysrhythmia Protocol (12/02/24 04:19) Rhythm Strips Once Every Shift (12/02/24 04:19) Oxygen By Nasal Cannula (12/02/24 04:19) Vital Signs Date Time Temp Pulse Resp B/P (MAP) Pulse Ox O2 Delivery O2 Flow Rate FiO2 12/02/24 03:54 170/112 12/02/24 02:45 107 14 173/109 (130) 92 12/02/24 01:45 105 25 186/112 (136) 97 12/02/24 00:43 98.4 105 17 195/118 (143) 97 98.4 12/02/24 00:43 17 97 Room Air* 0 21 12/02/24 00:34 107 16 205/109 12/02/24 00:16 205/109 12/02/24 00:16 98.7 107 19 205/109 (141) 97 98.7 12/01/24 22:49 201/118 12/01/24 22:36 99.1 116 19 201/118 (145) 96 99.1 12/01/24 21:40 120 12/01/24 21:34 98.8 122 20 189/134 98 98.8 12/01/24 21:28 120 Laboratory Tests Test 12/01/24 22:03 12/02/24 04:02 White Blood Count 11.0 10^3/uL (4.4-10.8) H Pending Medications Medications Dose Ordered Sig/Jorge Route Start Time Stop Time Status Last Admin Dose Admin Acetaminophen/ Hydrocodone Bitart 1 tab ONCE ONCE PO 12/01/24 21:45 12/01/24 21:47 DC 12/01/24 22:49 1 TAB Clonidine HCl 0.1 mg Q4HP PRN PO 12/02/24 03:45 12/02/24 03:54 0.1 MG Clonidine HCl 0.2 mg ONCE ONCE PO 12/01/24 21:45 12/01/24 21:47 DC 12/01/24 22:49 0.2 MG Hydromorphone HCl 0.5 mg ONCE ONCE IV 12/02/24 00:15 12/02/24 00:16 DC 12/02/24 00:34 0.5 MG Insulin Human Regular 10 units ONCE ONCE SC 12/02/24 01:30 12/02/24 01:31 DC 12/02/24 01:28 10 UNITS Ondansetron HCl 4 mg ONCE ONCE PO 12/01/24 21:45 12/01/24 21:47 DC 12/01/24 22:47 4 MG Potassium Chloride 100 ml @ 50 mls/hr Q2H IV 12/02/24 01:00 12/02/24 04:59 12/02/24 03:25 50 MLS/HR Sodium Chloride 1,000 ml @ 1,000 mls/hr Q1H ONCE IV 12/02/24 01:00 12/02/24 01:59 DC 12/02/24 01:00 1,000 MLS/HR Assessment/Plan Assessment/Plan Acute abdominal pain Hypertensive emergency Chest pain Hypokalemia Cardiomegaly Elevated liver enzymes Leukocytosis, unspecified Diabetes mellitus with hyperglycemia Plan 1. Admit to telemetry unit 2. Breathing treatment 3. Pain control management 4. IV antibiotic management 5. Management of fluids and electrolytes 6. Consultation for GI/hospitalist 7. Diagnostic test abdomen/pelvis CT 8. DVT prophylaxis-on SCDs 9. Repeat labs CBC, CMP in a.m. 10. Home medication reviewed and reconciled 11. Continue with current medical management 12. Treatment plan discussed with patient and RN. Patient verbalized understanding. Plan discussed with: Patient, Other (RN) My Orders Orders - ILIANA KEITH DNP Procedure Category Date Status Time Complete Blood Count LAB 12/02/24 In Process 04:00 Comprehensive LAB 12/02/24 In Process Metabolic Panel 04:00 Clonidine Hcl Tablet PHA 12/02/24 In Process (Catapres Tablet) 03:45 Trazodone Hcl PHA 12/02/24 In Process (Desyrel) 22:00 Carvedilol Tablet PHA 12/02/24 In Process (Coreg Tablet) 10:00 Nifedipine Er PHA 12/02/24 In Process (Procardia Xl 10:00 Consistent DIET 12/02/24 Transmitted Carb(Ccho)Diabetes Breakfast Glucose Blood PHA 12/02/24 In Process (Accu-Chek Comfort 06:00 Insulin R (Human) PHA 12/02/24 In Process (Insulin R) 06:00 Dextrose 50% Syringe PHA 12/02/24 In Process 03:45 Allergies JASWANT 12/02/24 In Process 03:32 Code Status CODE 12/02/24 Transmitted 03:32 Sodium Chloride Lock PHA 12/02/24 In Process (Saline Lock Ns) 06:00 Oxygen Per Hour RT 12/02/24 Transmitted 03:32 Hydrocodone-Acet PHA 12/02/24 In Process 5/325mg Tab (Jber 03:45 Ondansetron Hcl PHA 12/02/24 In Process (Zofran) 03:45 Docusate Sodium PHA 12/02/24 In Process Capsule (Colace 03:45 Complete Blood Count LAB 12/03/24 Verified 04:00 Comprehensive LAB 12/03/24 Verified Metabolic Panel 04:00 Condition: Serious JASWANT 12/02/24 In Process 03:32 Acetaminophen Tablet PHA 12/02/24 In Process (Tylenol Tablet) 03:45 Bedrest With Bathroom JASWANT 12/02/24 In Process Privileg 03:32 Maintain Bed Rest JASWANT 12/02/24 In Process 03:32 Sequential JASWANT 12/02/24 In Process Compression Device Lactic Acid W/ Reflex LAB 12/02/24 Logged Order 04:12 Admit ADMIT 12/02/24 Verified 04:19 Nitroglycerin PHA 12/02/24 Verified Sublingual (Ntrostat 04:30 Morphine Sulfate PHA 12/02/24 Verified Injection 04:30 Stat Ekg For Chest JASWANT 12/02/24 Verified Pain 04:19 Notify Md Of Changes JASWANT 12/02/24 Verified From Base 04:19 Escalator Installer For [facility] 12/02/24 Verified 24 Hours 04:19 Emergency Dysrhythmia JASWANT 12/02/24 Verified Protocol 04:19 Rhythm Strips Once [facility] 12/02/24 Verified Every Shift 04:19 Oxygen By Nasal RT 12/02/24 Verified Cannula 04:19 Problem List: (1) Acute abdominal pain (2) Hypertensive emergency (3) Chest pain (4) Hypokalemia (5) Cardiomegaly (6) Elevated liver enzymes (7) Leukocytosis, unspecified (8) Diabetes mellitus with hyperglycemia Date of Service: Dec 02, 2024 Billing Provider: ILIANA KEITH DNP Common Visit Codes: [id number] INP/OBS CARE (HIGH) ILIANA KEITH DNP Dec 02, 2024 04:21
[2024-12-02] MEDS ORDERED: MORPHINE SULFATE INJ 2 MG/ml SYRG IV PRN ×2 (04:30)
[2024-12-02] MEDS ORDERED: NITROGLYCERIN 0.4 MG SL TAB SL PRN (04:30)
[2024-12-02 04:35] LABS: Alanine Aminotransferase 42 U/L (7-40); Albumin 3.8 g/dL (3.2-4.8); Alkaline Phosphatase 96 U/L (46-116); Anion Gap 8 (5-15); BUN/Creatinine Ratio 10.1 (10.0-20.0); Blood Urea Nitrogen 7 mg/dL (9-23); Calcium 8.8 mg/dL (8.7-10.4); Carbon Dioxide 32 mmol/L (20-31); Chloride 101 mmol/L (98-107); Glucose 174 mg/dL (74-106); Potassium 3.2 mmol/L (3.5-5.1); Sodium 141 mmol/L (136-145); Total Protein 6.6 g/dL (5.7-8.2)
[2024-12-02 04:36] LABS: Bilirubin, Total 0.4 mg/dL (0.2-1.0)
[2024-12-02 04:42] LABS: Mean Corpuscular Hemoglobin 30.1 pg (28.0-32.0)
[2024-12-02] MEDS ORDERED: hydrALAZINE HCL 20 MG/ML VL IV PRN (05:00)
[2024-12-02] MEDS: MORPHINE SULFATE 4 MG/ML SYR/VIAL IV PRN (05:22)
[2024-12-02 05:45] LABS: Urine Budding Yeast OCCASIONAL /hpf (None Seen); Urine Protein, UAD TRACE (Negative)
[2024-12-02] MEDS: InsuLIN REG 1unit/0.01ml Soln (100units/ml) SC SCH (05:53)
[2024-12-02] MEDS: ACCU-CHEK COMFORT CURVE STRIP VI SCH (05:53)
[2024-12-02] MEDS: SODIUM CHLOR 0.9% PF (SALINE LOCK) 10ML VIAL/SYR IV SCH (06:29)
[2024-12-02] MEDS: HYDROcodone-ACET 5/325MG TAB PO PRN (06:36)
[2024-12-02] MEDS: hydrALAZINE HCL 20 MG/ML VL IV PRN (07:00)
[2024-12-02 07:15] VITALS: PULSE 107; RESP 19; O2SAT 96
[2024-12-02] MEDS: PANTOPRAZOLE 40 MG TAB PO ONE (09:19)
[2024-12-02] MEDS: KETOROLAC TROMETH 30 MG/ML 1ML VIAL IV PRN (09:41)
[2024-12-02] MEDS: CARVEDILOL 12.5 MG TAB PO SCH (09:43)
[2024-12-02] MEDS ORDERED: CARVEDILOL 12.5 MG TAB PO SCH (10:00)
[2024-12-02 13:00] VITALS: BP 145/91; PULSE 95; RESP 20; TEMP 98.2; O2SAT 96
--- NOTE | 2024-12-02 13:58 | DVHINCON2 ---
GI Consult Consult Note GI consult note Date of Consultation: 12/02/2024 Chief Complaint: Abdominal pain Referring Physician: Jules VARGAS H&P: 49-year-old male admitted with complains of chest pain for the past two days. Also complaining of left-sided abdominal pain, with nausea, did not denies vomiting hematemesis. Last bowel movement yesterday no melena or red blood in stool. Patient is status post EGD and colonoscopy 08/02/2024. Status post EGD and colonoscopy at [facility] September 2024, where patient was positive for H. pylori follow-up at [facility] where patient completed his course of medications about a week ago. Patient had multiple hospitalizations, abdomen ultrasound 08/22/2024 shows possible liver cirrhosis, questionable left renal mass recommend MRI abdomen with without contrast Past Medical History: CAD, CHF, DM, High Lipids, HTN Past Surgical History: Social History: NO smoking, drinking ETOH and use of illegal drugs. Family History: Noncontributory Review of Systems: Constitutional: no fever, chill, weight loss HEENT: no eye pain, no hearing loss, no oral lesion, no scleral icterus Heart: no chest pain, no chest pressure Lung: no cough, no dyspnea with exertion Abdomen: see HPI Physical exam: General: NAD, AAOX3 Chest: lung warren clear to auscultation Heart: RRR, no murmur Abdomen: non-distended,+ left side abdominal tenderness to palpation, +BS Labs: Labs Test 12/02/24 05:51 12/02/24 05:14 12/02/24 04:02 12/01/24 23:16 Range/Units POC Glucose 125 H 70-106 mg/dl Urine Color Yellow Yellow Urine Clarity Clear Clear Urine pH 6.0 5.0-9.0 Urine Specific [place] 1.038 H 1.001-1.035 Urine Protein Trace H Negative Urine Ketones Negative Negative Urine Blood Negative Negative /uL Urine Nitrite Negative Negative Urine Bilirubin Negative Negative Urine Urobilinogen Normal Negative mg/dL Urine Leukocyte Esterase Negative Negative /uL Urine RBC 3 0 - 3 /hpf Urine Microscopic WBC 4 H 0-3 /HPF Urine Squamous Epithelial Cells Few <5 /hpf Urine Bacteria None seen None Seen /hpf Urine Yeast (Budding) Occasional None Seen /hpf Urine Glucose 3+ H Normal mg/dL White Blood Count 10.4 4.4-10.8 10^3/uL Red Blood Count 4.27 L 4.5-5.90 10^6/uL Hemoglobin 13.5 13.5-17.5 g/dL Hematocrit 37.0 L 41.0-53.0 % Mean Corpuscular Volume 86.6 80.0-100.0 fL Mean Corpuscular Hemoglobin 30.1 28.0-32.0 pg Mean Corpuscular Hemoglobin Concent 35.3 32.0-36.0 g/dL Red Cell Distribution Width 13.4 11.8-14.3 % Platelet Count 254 140-450 10^3/uL Mean Platelet Volume 8.3 6.9-10.8 fL Neutrophils (%) (Auto) 62.1 37.0-80.0 % Lymphocytes (%) (Auto) 23.7 10.0-50.0 % Monocytes (%) (Auto) 10.7 0.0-12.0 % Eosinophils (%) (Auto) 2.7 0.0-7.0 % Basophils (%) (Auto) 0.8 0.0-2.0 % Neutrophils # (Auto) 6.5 1.6-8.6 10 ^3/uL Lymphocytes # (Auto) 2.5 0.4-5.4 10 ^3/uL Monocytes # (Auto) 1.1 0-1.3 10 ^3/uL Eosinophils # (Auto) 0.3 0-0.8 10 ^3/uL Basophils # (Auto) 0.1 0-0.2 10 ^3/uL Nucleated Red Blood Cells 0.0 % Sodium Level 141 136-145 mmol/L Potassium Level 3.2 L 3.5-5.1 mmol/L Chloride Level 101 98-107 mmol/L Carbon Dioxide Level 32 H 20-31 mmol/L Anion Gap 8 5-15 Blood Urea Nitrogen 7 L 9-23 mg/dL Creatinine 0.69 L 0.700-1.30 mg/dL Glomerular Filtration Rate Calc 113 >90 mL/min BUN/Creatinine Ratio 10.1 10.0-20.0 Serum Glucose 174 H 74-106 mg/dL Calcium Level 8.8 8.7-10.4 mg/dL Magnesium Level 1.9 1.6-2.6 mg/dL Total Bilirubin 0.4 0.2-1.0 mg/dL Aspartate Amino Transferase (AST) 37 13-40 U/L Alanine Aminotransferase (ALT) 42 H 7-40 U/L Alkaline Phosphatase 96 46-116 U/L Total Protein 6.6 5.7-8.2 g/dL Albumin 3.8 3.2-4.8 g/dL Troponin I High Sensitivity 17 </=54 ng/L Test 12/01/24 22:03 Range/Units D-Dimer, Quantitative 0.26 0.0-0.49 mg/L FEU Lactic Acid Level 1.7 0.4-2.0 mmol/L B-Type Natriuretic Peptide 98.38 0-100 pg/mL Imaging: CT abdomen pelvis IMPRESSION: 1. No acute abdominal or pelvic finding. 2. Cardiomegaly. Abdominal ultrasound 08/22/2024 Impression: Echogenic liver which can be seen with hepatic steatosis, cirrhosis. Possible left renal lower pole exophytic mass 3.3 cm and is isoechoic. Recommend MRI abdomen with and without contrast to evaluate. Assessment: Abdominal pain Status post colonoscopy with polypectomy Status post EGD with positive H. pylori Plan: Discussed with Dr. Roger Stool studies pending IV antibiotics Diet as tolerated Supportive care, no GI procedures planned at this time Plan discussed with patient and RN Thank you for this consult Date of Service: Dec 02, 2024 Billing Provider: FANY OLGUIN Common Visit Codes: CONSULT ONLY Consultation Codes: [id number] CONSULT <60MIN FANY OLGUIN Dec 02, 2024 13:58
[2024-12-02 17:00] VITALS: BP 152/99; PULSE 93; RESP 20; TEMP 97.9; O2SAT 97
[2024-12-02] MEDS: HYDROmorphone HCL 2 MG/ML VL/or syr IV PRN (17:47)
[2024-12-02 21:00] VITALS: BP 156/95; PULSE 98; RESP 16; TEMP 98; O2SAT 95
[2024-12-02 21:44] VITALS: BP 171/113; PULSE 95; RESP 18; TEMP 98.2; O2SAT 97
[2024-12-02] MEDS ORDERED: ATOR-507 PO (23:35)
[2024-12-02] MEDS ORDERED: SPIR50TA5 PO (23:37)
[2024-12-02] MEDS ORDERED: OMEP20TA PO (23:38)
[2024-12-03] VITALS (8 sets, daily range): BP systolic 132–166; BP diastolic 80–103; PULSE 88–110; RESP 18–20; TEMP 97.7–98.3; O2SAT 94–99
[2024-12-03 06:48] LABS: Hematocrit 38.2 % (41.0-53.0); Hemoglobin 13.8 g/dL (13.5-17.5); Mean Corpuscular Hemoglobin 31.3 pg (28.0-32.0); Mean Corpuscular Volume 86.6 fL (80.0-100.0); Nucleated Red Blood Cells % 0.0 %
[2024-12-03 07:06] LABS: Alanine Aminotransferase 48 U/L (7-40); Albumin 3.8 g/dL (3.2-4.8); Alkaline Phosphatase 70 U/L (46-116); Anion Gap 9 (5-15); BUN/Creatinine Ratio 12.7 (10.0-20.0); Bilirubin, Total 0.7 mg/dL (0.2-1.0); Blood Urea Nitrogen 10 mg/dL (9-23); Calcium 8.7 mg/dL (8.7-10.4); Carbon Dioxide 34 mmol/L (20-31); Chloride 99 mmol/L (98-107); Glucose 154 mg/dL (74-106); Potassium 3.2 mmol/L (3.5-5.1); Sodium 142 mmol/L (136-145); Total Protein 6.5 g/dL (5.7-8.2)
--- NOTE | 2024-12-03 09:08 | DVHINCON2 ---
Date Seen: Dec 03, 2024 Referring Physician MD Tori Reason for Consultation Chest pain History of Present Illness This is a 49-year-old male patient who presents to the emergency room with chief complaint of chest pain and abdominal pain. The patient reports he has been experiencing these symptoms since February of this year. Patient reports undergoing an EGD and colonoscopy and was recently told that he had some sort of intra-abdominal bacterial infection (H.pylori) for which he was prescribed antibiotics. He also reports chest pain. He describes the chest pain as provoked when his blood pressure is elevated, intermittent, crushing in nature, substernal and nonradiating. He denies any associated symptoms. The patient reports that he has not been able to get his blood pressure under control at home despite taking antihypertensives as prescribed. Initial twelve lead electrocardiogram reveals sinus tachycardia with nonspecific ST segment changes to lateral leads, inferior Q-waves, and prolonged QTc interval. Initial troponin level of 16ng/L. Significant past medical history includes nonischemic cardiomyopathy, congestive heart failure, hypertension, dyslipidemia, type 2 diabetes mellitus, chronic back pain, previous polysubstance abuse, and obesity. Patient reports he has not followed up with a tube drawer in the outpatient setting. Of note, the patient underwent a coronary angiogram with left heart catheterization on 12/27/2023 which revealed no significant coronary artery disease, but sluggish flow and mild to moderate disease of mid LAD was noted. Past Medical History Past medical history reviewed. No other significant than mentioned above. Past Surgical History Denies any previous surgeries Family History: FHx: multiple myeloma G8 MOTHER, Family History Family history reviewed. Social History History methamphetamine use, quit over two years ago per patient Denies tobacco use Denies alcohol use Allergies: Coded Allergies: No Known Drug Allergy (Verified Allergy, Unknown, 12/24/23) Home Meds Active Scripts Nifedipine (Nifedipine ER) 30 Mg Tab, 90 MG PO DAILY for 30 Days, #90 TAB 0 Refills Prov:RUY CARUSO RESIDENT 09/25/24 Lisinopril (Lisinopril) 40 Mg Tab, 1 TAB PO DAILY, #30 TAB 1 Refill Prov:CAROLINA OVALLE MD 08/23/24 Duloxetine Hcl (Cymbalta) 20 Mg Cap, 1 CAP PO DAILY for 30 Days, #30 CAP Prov:ALE HARRIS RESIDENT 08/15/24 Insulin Glargine (Lantus) 100 Unit/Ml Inj, 35 UNITS SC BID@1000,2200 for 30 Days, #1 INJ Prov:CORRINE GRAHAM RESIDENT 12/28/23 Reported Medications Omeprazole (Gnp Omeprazole) 20 Mg Tab, 1 TAB PO DAILY, #90 TAB 1 Refill 12/02/24 Spironolactone (Spironolactone) 50 Mg Tab, 1 TAB PO DAILY, #30 TAB 5 Refills 12/02/24 Atorvastatin Calcium (Lipitor) 40 Mg Tab, 1 TAB PO DAILY, #30 TAB 5 Refills 12/02/24 Sildenafil Citrate (Sildenafil Citrate) 20 Mg Tab, 1 TAB PO DAILY for 30 Days, #30 09/24/24 Sucralfate (CARAFATE SUSP) 1 Gm/10 Ml Ss, 10 ML PO BID for 30 Days, #600 09/24/24 Senna (Senna-Time) 8.6 Mg Tab, 2 TAB PO DAILY for 30 Days, #60 09/24/24 Tirzepatide (Mounjaro) 7.5 Mg/0.5 Ml Inj, 7.5 MG SUBCUT QWEEKLY for 28 Days, #2 09/24/24 Ergocalciferol (Vitamin D) 50,000 Unit Cap, 1 CAP PO QWEEKLY for 28 Days, #4 09/24/24 Gabapentin (Gabapentin) 300 Mg Cap, 3 CAP PO TID for 30 Days, #270 09/24/24 Metoclopramide HCl (Metoclopramide Hydrochlor) 10 Mg Tab, 1 TAB PO TID for 30 Days, #90 09/24/24 Pantoprazole Sodium Sesquihydr (Pantoprazole Sodium) 40 Mg Tab, 1 TAB PO BID for 30 Days, #60 09/24/24 Polyethylene Glycol 3350 (Gnp Clearlax) 17 Gm/Scoop Pow, 17 GM PO DAILY for 30 Days, #510 09/24/24 Nifedipine (Nifedipine Er) 30 Mg Tab, 1 TAB PO BID for 30 Days, #60 09/24/24 Carvedilol (Carvedilol) 12.5 Mg Tab, 1 TAB PO BID for 30 Days, #60 09/24/24 Clonidine Hydrochloride (Clonidine Hcl) 0.1 Mg Tab, 1 TAB PO BIDPRN for 30 Days, #60 09/24/24 Insulin Lispro (Humalog Kwikpen) 100 Unit/Ml Inj, 25 UNITS SC AC for 40 Days, #30 08/14/24 Trazodone Hcl (Trazodone Hcl) 50 Mg Tab, 1 TAB PO QHSP PRN for PSYCHOPHYSIOLOGIC INSOMNIA for 30 Days, #30 08/14/24 Furosemide (Furosemide) 20 Mg Tab, 1 TAB PO BID for 90 Days, #180 08/14/24 Hydroxyzine Hcl (Hydroxyzine Hcl) 25 Mg Tab, 1 TAB PO DAILY for 30 Days, #30 08/14/24 Linaclotide Base (LINZESS) 145 Mcg Cap, 1 CAP PO DAILY for 30 Days, #30 08/14/24 Nitroglycerin (NTROSTAT SUBLINGUAL) 0.4 Mg Sl, 0.4 MG SL PRN, TAB *MAY REPEAT EVERY 5 MINUTES X 3 TOTAL IF NO RELIEF, INITIATE ANALGESIC THERAPY. NOTIFY PHYSICIAN *Do not crush. 12/25/23 Tramadol Hcl (Tramadol Hcl) 50 Mg Tab, 50 MG PO, TAB 12/25/23 Home Meds Home medications reviewed. Current Medications Current Medications Medications (Trade) Dose Ordered Sig/Jorge Route PRN Reason Start Time Stop Time Status Last Admin Trazodone HCl (Desyrel) 50 mg HS PO 12/02/24 22:00 12/02/24 22:34 Carvedilol (Coreg Tablet) 12.5 mg Q12HR PO 12/02/24 10:00 12/02/24 05:01 DC Nifedipine (Procardia Xl (Time-Release)) 30 mg DAILY PO 12/02/24 10:00 12/02/24 09:42 Carvedilol (Coreg Tablet) 25 mg Q12HR PO 12/02/24 10:00 12/02/24 22:34 Amlodipine Besylate (Norvasc Tablet) 10 mg DAILY PO 12/03/24 10:00 Ceftriaxone Sodium 50 ml @ 100 mls/hr DAILY@09 IV 12/03/24 09:00 Metronidazole 100 ml @ 100 mls/hr Q8HR IV 12/02/24 14:00 12/03/24 05:04 Ketorolac Tromethamine (Toradol Injection) 15 mg Q6HPRN PRN IV MODERATE PAIN (4-6 PAIN SCALE) 12/02/24 09:15 12/07/24 09:14 12/03/24 05:09 Hydromorphone HCl (Dilaudid Injection) 0.5 mg Q4HP PRN IV PAIN SCALE 7 THRU 10 12/02/24 16:45 12/03/24 03:11 Review of Systems Constitutional: No symptom reported Ears, Nose, & Throat: No symptom reported Eyes: No symptom reported Neurological: No symptoms reported Pulmonary/Respiratory: No symptoms reported Cardiovascular: Chest pain Gastrointestinal: Abdominal pain Genitourinary: No symptom reported Musculoskeletal: No symptom reported Skin: No symptom reported Psychiatric: No symptom reported Endocrine: No symptom reported Hematologic/Lymphatic: No symptom reported Vital Signs Vital Signs Date Time Temp Pulse Resp B/P (MAP) Pulse Ox O2 Delivery O2 Flow Rate FiO2 12/03/24 08:30 97.7 88 18 147/100 (116) 94 97.7 12/02/24 23:27 Room Air* 0 21 Physical Exam General Appearance: Cooperative. Obese Pulmonary/Respiratory: Clear, bilateral breaths sounds. Cardiovascular/Chest: Regular rate and rhythm. Peripheral Pulses: 2+ Radial (R). 2+ Radial (L). 2+ Pedal (R). 2+ Pedal (L) Abdominal Exam: Normal bowel sounds. Ankle Exam: Negative ankle edema Lower extremities: Negative lower extremity edema Neuro/Mental Status: A/OX4, coherent. Thoughts/Psych: Normal thought pattern. Appropriate mood and affect. Good judgment and insight. Appearance: No acute distress. Skin Exam: Normal inspection. Normal color. Warm and dry. Labs/Diagnostic Data Labs Test 12/03/24 05:52 12/03/24 04:58 12/02/24 05:14 12/02/24 04:02 Range/Units White Blood Count 8.3 4.4-10.8 10^3/uL Red Blood Count 4.41 L 4.5-5.90 10^6/uL Hemoglobin 13.8 13.5-17.5 g/dL Hematocrit 38.2 L 41.0-53.0 % Mean Corpuscular Volume 86.6 80.0-100.0 fL Mean Corpuscular Hemoglobin 31.3 28.0-32.0 pg Mean Corpuscular Hemoglobin Concent 36.1 H 32.0-36.0 g/dL Red Cell Distribution Width 13.6 11.8-14.3 % Platelet Count 249 140-450 10^3/uL Mean Platelet Volume 8.2 6.9-10.8 fL Neutrophils (%) (Auto) 66.5 37.0-80.0 % Lymphocytes (%) (Auto) 17.3 10.0-50.0 % Monocytes (%) (Auto) 11.0 0.0-12.0 % Eosinophils (%) (Auto) 4.6 0.0-7.0 % Basophils (%) (Auto) 0.6 0.0-2.0 % Neutrophils # (Auto) 5.5 1.6-8.6 10 ^3/uL Lymphocytes # (Auto) 1.4 0.4-5.4 10 ^3/uL Monocytes # (Auto) 0.9 0-1.3 10 ^3/uL Eosinophils # (Auto) 0.4 0-0.8 10 ^3/uL Basophils # (Auto) 0.1 0-0.2 10 ^3/uL Nucleated Red Blood Cells 0.0 % Sodium Level 142 136-145 mmol/L Potassium Level 3.2 L 3.5-5.1 mmol/L Chloride Level 99 98-107 mmol/L Carbon Dioxide Level 34 H 20-31 mmol/L Anion Gap 9 5-15 Blood Urea Nitrogen 10 9-23 mg/dL Creatinine 0.79 0.700-1.30 mg/dL Glomerular Filtration Rate Calc 109 >90 mL/min BUN/Creatinine Ratio 12.7 10.0-20.0 Serum Glucose 154 H 74-106 mg/dL Calcium Level 8.7 8.7-10.4 mg/dL Total Bilirubin 0.7 0.2-1.0 mg/dL Aspartate Amino Transferase (AST) 43 H 13-40 U/L Alanine Aminotransferase (ALT) 48 H 7-40 U/L Alkaline Phosphatase 70 46-116 U/L Total Protein 6.5 5.7-8.2 g/dL Albumin 3.8 3.2-4.8 g/dL Thyroid Stimulating Hormone (TSH) 7.35 H 0.55-4.78 uIU/mL POC Glucose 160 H 70-106 mg/dl Urine Color Yellow Yellow Urine Clarity Clear Clear Urine pH 6.0 5.0-9.0 Urine Specific [place] 1.038 H 1.001-1.035 Urine Protein Trace H Negative Urine Ketones Negative Negative Urine Blood Negative Negative /uL Urine Nitrite Negative Negative Urine Bilirubin Negative Negative Urine Urobilinogen Normal Negative mg/dL Urine Leukocyte Esterase Negative Negative /uL Urine RBC 3 0 - 3 /hpf Urine Microscopic WBC 4 H 0-3 /HPF Urine Squamous Epithelial Cells Few <5 /hpf Urine Bacteria None seen None Seen /hpf Urine Yeast (Budding) Occasional None Seen /hpf Urine Glucose 3+ H Normal mg/dL Magnesium Level 1.9 1.6-2.6 mg/dL Test 12/01/24 23:16 12/01/24 22:03 Range/Units Troponin I High Sensitivity 17 </=54 ng/L D-Dimer, Quantitative 0.26 0.0-0.49 mg/L FEU Lactic Acid Level 1.7 0.4-2.0 mmol/L B-Type Natriuretic Peptide 98.38 0-100 pg/mL Assessment Chest pain, rule out coronary ischemia Chronic compensated HFrEF, NYHA class II Hypertensive urgency Prolonged QTc interval Rule out renal artery stenosis Dyslipidemia Hypokalemia Type 2 diabetes mellitus History of methamphetamine use Obesity Plan/Recommendation We will continue with the following plan/recommendations (Dr. Pelletier): * Transthoracic echocardiogram to evaluate cardiac function and wall motion * Previous transthoracic echocardiogram from 07/21/2024 reveals an EF of 30- 35% * Continue guideline directed medical therapy for CHF as tolerated: Up-titrate doses for tighter BP control * Stop calcium channel blockers as this is contraindicated in patients with reduced ejection fraction * Chest pain protocol * HEART score: 4 points (moderate score) * Aggressive blood pressure control * Renal artery ultrasound * Lipid-lowering agent * Monitor QT interval; avoid medications that prolong QT interval as this places patient at risk for torsades de pointes * Nuclear stress test * Close cardiac surveillance Given the patient's clinical presentation, comorbidities, and recurrent chest pain (states intermittently since February), we will offer the patient a nuclear stress test. Plan discussed with the patient full detail. The patient is agreeable. We will schedule the patient at soonest availability. Thank you for allowing us to care for this patient. Please call with any questions or concerns. Critical care time spent: 44 minutes This medical document was created using an electronic medical record system with voice recognition software and computerized dictation system. Although this document has been carefully reviewed, there might still be some phonetic and typographical errors. Occasional wrong-word or ``sound-alike substitutions m ay have occurred due to the inherent limitations of voice recognition software. These areas are purely typographical due to imperfections of the software programs and do not reflect any compromise in the patient's medical care. Please read the chart carefully and recognize, using context, where these substitutions have occurred. Plan discussed with: Patient NYHA Physical activity limitations: Class2(Slight)fatigue,sob (palpitatns, angina w activityv) Date of Service: Dec 03, 2024 Billing Provider: ETELVINA ORTIZ Cardiology Common Codes: [id number] INP/OBS CARE (High) Cardiology Consultation Codes: [id number] CONSULT <45MIN ETELVINA ORTIZ Dec 03, 2024 09:08
[2024-12-03 09:10] LABS: Cholesterol 127 mg/dL (< 200); HDL Cholesterol 34 mg/dL (40-59); Triglycerides 243 mg/dL (< 150)
[2024-12-03] MEDS: DOCUSATE SOD 100 MG CAP PO PRN (09:12)
[2024-12-03] MEDS: LOSARTAN POTASSIUM 50 MG TAB PO SCH (10:00)
[2024-12-03 10:23] LABS: Opiate Scree,Urine Neg (NEGATIVE)
[2024-12-03 10:26] LABS: Amphetamine Screen, Urine Neg (NEGATIVE); Barbiturate Scree,Urine Neg (NEGATIVE); Benzodiazephine Screen, Urine Neg (NEGATIVE); Cannabinoid Screen, Urine Neg (NEGATIVE); Cocaine Screen, Urine Neg (NEGATIVE); Phencyclidine Screen, Urine Neg (NEGATIVE)
[2024-12-03 11:19] LABS: Free T3 4.03 pg/mL (2.3-4.2); Free T4 (Free Thyroxine) 1.07 ng/dL (0.89-1.76)
--- NOTE | 2024-12-03 14:04 | DVHPN2 ---
Subjective Patient is still complains of abdominal pain Feels like a hard this on his left side of abdomen Undergoing cardiac workup Changes from previous H/P or p: No Changes Eyes: No Pain, No Vision change, No Conjunctivae inflammation, No Eyelid inflammation, No Other, No Redness ENT: No Ear pain, No Ear discharge, No Nose pain, No Nose discharge, No Nose congestion, No Mouth pain, No Mouth swelling, No Throat pain, No Throat swelling, No Other Cardiovascular: Chest Pain; No Palpitations, No Orthopnea, No Paroxysmal Noc. Dyspnea, No Edema, No Lt Headedness, No Other Respiratory: No Cough, No Dry, No Shortness of breath, No SOB with excertion, No Wheezing, No Hemoptysis, No Pleuritic Pain, No Sputum, No Other Gastrointestinal: Nausea; No Vomiting; Abdominal Pain; No Diarrhea, No Constipation, No Melena, No Hematochezia, No Other Genitourinary: No Dysuria, No Frequency, No Incontinence, No Hematuria, No Retention, No Other Musculoskeletal: No other, No neck pain, No shoulder pain, No arm pain, No back pain, No hand pain, No leg pain, No foot pain Skin: No Rash, No Lesions, No Jaundice, No Bruising, No Other Objective Vitals Vital Signs Date Time Temp Pulse Resp B/P (MAP) Pulse Ox O2 Delivery O2 Flow Rate FiO2 12/03/24 10:13 88 141/93 12/03/24 09:42 16 12/03/24 08:30 97.7 94 97.7 12/02/24 23:27 Room Air* 0 21 Intake/Output Intake and Output 12/03/24 07:00 Intake Total 1550 ml Balance 1550 ml Intake Oral 1150 ml IV Total 400 ml # Voids 2 Exam General: NAD, AAOX3 Chest: lung warren clear to auscultation Heart: RRR, no murmur Abdomen: non-distended,+ left side abdominal tenderness to palpation, +BS Medications Current Medications Medications Dose Ordered Sig/Jorge Route Start Time Stop Time Status Last Admin Dose Admin Clonidine HCl 0.1 mg Q4HP PRN PO 12/02/24 03:45 12/02/24 03:54 0.1 MG Trazodone HCl 50 mg HS PO 12/02/24 22:00 12/02/24 22:34 50 MG Diagnostic Test (Pha) 1 strip Q6HR 12/02/24 06:00 12/03/24 13:16 1 STRIP Insulin Human Regular Q6HR SC 12/02/24 06:00 12/03/24 05:05 2 UNITS Dextrose 50 ml UD PRN IV 12/02/24 03:45 Sodium Chloride 10 ml Q8HR IV 12/02/24 06:00 12/03/24 13:17 10 ML Acetaminophen/ Hydrocodone Bitart 1 tab Q4HP PRN PO 12/02/24 03:45 12/02/24 11:03 1 TAB Ondansetron HCl 4 mg Q4HP PRN IV 12/02/24 03:45 Docusate Sodium 100 mg BIDPRN PRN PO 12/02/24 03:45 12/03/24 09:12 100 MG Acetaminophen 650 mg Q6HP PRN PO 12/02/24 03:45 Nitroglycerin 0.4 mg Q5MINP PRN SL 12/02/24 04:30 Morphine Sulfate 2 mg Q30M PRN IV 12/02/24 04:30 Hydralazine HCl 10 mg Q6HP PRN IV 12/02/24 05:00 Cancel Carvedilol 25 mg Q12HR PO 12/02/24 10:00 12/03/24 09:13 25 MG Hydralazine HCl 10 mg Q6HP PRN IV 12/02/24 05:00 12/03/24 00:54 10 MG Ceftriaxone Sodium 50 ml @ 100 mls/hr DAILY@09 IV 12/03/24 09:00 12/03/24 09:14 100 MLS/HR Metronidazole 100 ml @ 100 mls/hr Q8HR IV 12/02/24 14:00 12/03/24 05:04 100 MLS/HR Ketorolac Tromethamine 15 mg Q6HPRN PRN IV 12/02/24 09:15 12/07/24 09:14 12/03/24 13:11 15 MG Hydromorphone HCl 0.5 mg Q4HP PRN IV 12/02/24 16:45 12/03/24 09:12 0.5 MG Empaglifozin 10 mg DAILY PO 12/03/24 10:00 Spironolactone 25 mg DAILY PO 12/03/24 10:00 Losartan Potassium 50 mg DAILY PO 12/03/24 10:00 Atorvastatin Calcium 40 mg HS PO 12/03/24 22:00 Laboratory Results Laboratory Tests 12/03/24 05:52 Chemistry Test 12/03/24 05:52 Albumin 3.8 g/dL (3.2-4.8) Calcium Level 8.7 mg/dL (8.7-10.4) Total Protein 6.5 g/dL (5.7-8.2) Lipid panel Test 12/03/24 05:52 Cholesterol Level 127 mg/dL (< 200) HDL Cholesterol 34 mg/dL (40-59) L Triglycerides Level 243 mg/dL (< 150) H LFT Test 12/03/24 05:52 Alanine Aminotransferase (ALT) 48 U/L (7-40) H Alkaline Phosphatase 70 U/L (46-116) Aspartate Amino Transferase (AST) 43 U/L (13-40) H Total Bilirubin 0.7 mg/dL (0.2-1.0) HgA1c, TSH Test 12/03/24 05:52 Thyroid Stimulating Hormone (TSH) 7.35 uIU/mL (0.55-4.78) H Urinalysis Test 12/02/24 05:14 Urine Color Yellow (Yellow) Urine Clarity Clear (Clear) Urine pH 6.0 (5.0-9.0) Urine Specific [place] 1.038 (1.001-1.035) Urine Protein Trace (Negative) H Urine Ketones Negative (Negative) Urine Blood Negative /uL (Negative) Urine Nitrite Negative (Negative) Urine Bilirubin Negative (Negative) Urine Urobilinogen Normal mg/dL (Negative) Urine Leukocyte Esterase Negative /uL (Negative) Urine RBC 3 /hpf (0 - 3) Urine Microscopic WBC 4 /HPF (0-3) H Urine Squamous Epithelial Cells Few /hpf (<5) Urine Bacteria None seen /hpf (None Seen) Urine Yeast (Budding) Occasional /hpf (None Urine Glucose 3+ mg/dL (Normal) H Exam: US ABDOMEN LIMITED Date: 09/02/2024 10:48 AM Clinical History: left side sided abdominal mass Comparison: None Findings: Targeted sonographic evaluation of the soft tissues of the left upper quadrant was obtained utilizing grayscale and color Doppler imaging. There is left upper quadrant hernia containing loop of bowel. IMPRESSION: There is left upper quadrant hernia containing loop of bowel. Assessment/Plan Assessment/Plan Abdominal pain Status post colonoscopy with polypectomy Status post EGD with positive H. pylori Plan: Discussed with Dr. Roger Reviewed extensor history of patient's including all the imaging studies Surgical consult recommended due to ultrasound of abdomen which shows left upper quadrant hernia containing loop of bowel dated 09/02/2024 Plan discussed with: Patient My Orders Orders - FANY OLGUIN Procedure Category Date Status Time * Surgical Consult CONS 12/03/24 Verified Date of Service: Dec 03, 2024 Billing Provider: FANY OLGUIN Common Visit Codes: [id number] INP/OBS CARE(HIGH) FANY OLGUIN Dec 03, 2024 14:04
[2024-12-03] MEDS: SPIRONOLACTONE 25 MG TAB PO SCH (14:38)
[2024-12-03] MEDS: EMPAGLIFLOZIN 10 MG TAB PO SCH (14:39)
--- NOTE | 2024-12-03 16:32 | DVH ---
INDICATION: Renal artery stenosis TECHNIQUE: Multiple real-time sonographic images of the kidneys and bladder were obtained. Duplex Doppler evaluation including color Doppler and spectral/pulsed waveform analysis of the bilate ral renal arteries was performed. COMPARISON: US ABDOMEN LIMITED on DOS: 09/02/24, US ABDOMEN COMPLETE SONOGRAM on DOS: 08/22/24 FINDINGS: The right kidney measures 12.5 cm in length. The right renal echogenicity, contour and cortical thick ness are within normal limits. No hydronephrosis or large masses/calculi are seen. The left kidney measures 13.6 cm in length. The left renal echogenicity, contour, and cortical thickn ess are within normal limits. No hydronephrosis or large masses/calculi are seen. Aorta peak systolic velocity, 49.5 cm/s Right renal artery peak systolic velocity, 67.1 cm/s (< 180 cm/s = normal). Left renal artery peak systolic velocity 58.2 cm/s (< 180 cm/s = normal). Right RAR : 1.4 (< 3.5, normal) Left RAR 1 0.2 (< 3.5, normal) Right RI: 0.7 (< 0.75, normal) Left RI: 0.6 (< 0.75, normal) IMPRESSION: No findings to suggest renal artery stenosis. *Kimmie Velásquez Techniques in Noninvasive Vascular Diagnosis 2001
--- NOTE | 2024-12-03 17:57 | DVHPN2 ---
Subjective I am assuming the care of the patient from today onwards. Patient was seen and vitamin complaining of chest pain has been as abdominal pain. Changes from previous H/P or p: No Changes Eyes: No Pain, No Vision change, No Conjunctivae inflammation, No Eyelid inflammation, No Other, No Redness ENT: No Ear pain, No Ear discharge, No Nose pain, No Nose discharge, No Nose congestion, No Mouth pain, No Mouth swelling, No Throat pain, No Throat swelling, No Other Cardiovascular: Chest Pain; No Palpitations, No Orthopnea, No Paroxysmal Noc. Dyspnea, No Edema, No Lt Headedness, No Other Respiratory: No Cough, No Dry, No Shortness of breath, No SOB with excertion, No Wheezing, No Hemoptysis, No Pleuritic Pain, No Sputum, No Other Gastrointestinal: Nausea; No Vomiting; Abdominal Pain; No Diarrhea, No Constipation, No Melena, No Hematochezia, No Other Genitourinary: No Dysuria, No Frequency, No Incontinence, No Hematuria, No Retention, No Other Musculoskeletal: No other, No neck pain, No shoulder pain, No arm pain, No back pain, No hand pain, No leg pain, No foot pain Skin: No Rash, No Lesions, No Jaundice, No Bruising, No Other Objective Vitals Vital Signs Date Time Temp Pulse Resp B/P (MAP) Pulse Ox O2 Delivery O2 Flow Rate FiO2 12/03/24 16:52 90 20 156/103 12/03/24 16:30 98.3 95 98.3 12/02/24 23:27 Room Air* 0 21 Intake/Output Intake and Output 12/03/24 07:00 Intake Total 1550 ml Balance 1550 ml Intake Oral 1150 ml IV Total 400 ml # Voids 2 Exam HEENT pupils are reactive Neck is supple CV is S1-S2 regular rate and rhythm Respiratory diminished breath sound bases GI posterior bowel sound Extremity no edema [employer] no motor deficit Medications Current Medications Medications Dose Ordered Sig/Jorge Route Start Time Stop Time Status Last Admin Dose Admin Clonidine HCl 0.1 mg Q4HP PRN PO 12/02/24 03:45 12/02/24 03:54 0.1 MG Trazodone HCl 50 mg HS PO 12/02/24 22:00 12/02/24 22:34 50 MG Diagnostic Test (Pha) 1 strip Q6HR 12/02/24 06:00 12/03/24 13:16 1 STRIP Insulin Human Regular Q6HR SC 12/02/24 06:00 12/03/24 17:17 6 UNITS Dextrose 50 ml UD PRN IV 12/02/24 03:45 Sodium Chloride 10 ml Q8HR IV 12/02/24 06:00 12/03/24 13:17 10 ML Acetaminophen/ Hydrocodone Bitart 1 tab Q4HP PRN PO 12/02/24 03:45 12/02/24 11:03 1 TAB Ondansetron HCl 4 mg Q4HP PRN IV 12/02/24 03:45 Docusate Sodium 100 mg BIDPRN PRN PO 12/02/24 03:45 12/03/24 09:12 100 MG Acetaminophen 650 mg Q6HP PRN PO 12/02/24 03:45 Nitroglycerin 0.4 mg Q5MINP PRN SL 12/02/24 04:30 Morphine Sulfate 2 mg Q30M PRN IV 12/02/24 04:30 Hydralazine HCl 10 mg Q6HP PRN IV 12/02/24 05:00 Cancel Carvedilol 25 mg Q12HR PO 12/02/24 10:00 12/03/24 09:13 25 MG Hydralazine HCl 10 mg Q6HP PRN IV 12/02/24 05:00 12/03/24 16:51 10 MG Ceftriaxone Sodium 50 ml @ 100 mls/hr DAILY@09 IV 12/03/24 09:00 12/03/24 09:14 100 MLS/HR Metronidazole 100 ml @ 100 mls/hr Q8HR IV 12/02/24 14:00 12/03/24 14:39 100 MLS/HR Ketorolac Tromethamine 15 mg Q6HPRN PRN IV 12/02/24 09:15 12/07/24 09:14 12/03/24 13:11 15 MG Hydromorphone HCl 0.5 mg Q4HP PRN IV 12/02/24 16:45 12/03/24 16:52 0.5 MG Empaglifozin 10 mg DAILY PO 12/03/24 10:00 12/03/24 14:39 10 MG Spironolactone 25 mg DAILY PO 12/03/24 10:00 12/03/24 14:38 25 MG Losartan Potassium 50 mg DAILY PO 12/03/24 10:00 Atorvastatin Calcium 40 mg HS PO 12/03/24 22:00 Laboratory Results Laboratory Tests 12/03/24 05:52 Chemistry Test 12/03/24 05:52 Albumin 3.8 g/dL (3.2-4.8) Calcium Level 8.7 mg/dL (8.7-10.4) Total Protein 6.5 g/dL (5.7-8.2) Lipid panel Test 12/03/24 05:52 Cholesterol Level 127 mg/dL (< 200) HDL Cholesterol 34 mg/dL (40-59) L Triglycerides Level 243 mg/dL (< 150) H LFT Test 12/03/24 05:52 Alanine Aminotransferase (ALT) 48 U/L (7-40) H Alkaline Phosphatase 70 U/L (46-116) Aspartate Amino Transferase (AST) 43 U/L (13-40) H Total Bilirubin 0.7 mg/dL (0.2-1.0) HgA1c, TSH Test 12/03/24 05:52 Thyroid Stimulating Hormone (TSH) 7.35 uIU/mL (0.55-4.78) H Urinalysis Test 12/02/24 05:14 Urine Color Yellow (Yellow) Urine Clarity Clear (Clear) Urine pH 6.0 (5.0-9.0) Urine Specific [place] 1.038 (1.001-1.035) Urine Protein Trace (Negative) H Urine Ketones Negative (Negative) Urine Blood Negative /uL (Negative) Urine Nitrite Negative (Negative) Urine Bilirubin Negative (Negative) Urine Urobilinogen Normal mg/dL (Negative) Urine Leukocyte Esterase Negative /uL (Negative) Urine RBC 3 /hpf (0 - 3) Urine Microscopic WBC 4 /HPF (0-3) H Urine Squamous Epithelial Cells Few /hpf (<5) Urine Bacteria None seen /hpf (None Seen) Urine Yeast (Budding) Occasional /hpf (None Urine Glucose 3+ mg/dL (Normal) H Assessment/Plan Assessment/Plan 49-year-old male with a known history of congestive heart failure with systolic dysfunction, cardiomyopathy with the EF of 30-35%, hypertension, dyslipidemia, type 2 diabetes mellitus who initially present with the hospital with the chest pain and abdominal pain found to have 1. Acute on chronic congestive heart failure exacerbation with systolic 2. Chest pain rule out [place] 3. Abdominal pain with some abdominal distention to the left side 4. Cardiomyopathy 5. Diabetes mellitus type 2 6. Illicit drug use/methamphetamine use 7. Morbid obesity class I 8. Chronic insomnia -check troponins q.8 hours x3, 2D echo, cardiology consultation, nuclear stress test- -GI consultation Plan discussed with: Patient Date of Service: Dec 03, 2024 Billing Provider: GENIE MELENDEZ MD Common Visit Codes: [id number] INP/OBS CARE(MOD) GENIE MELENDEZ MD Dec 03, 2024 17:57
--- NOTE | 2024-12-03 18:53 | DVHINCON2 ---
Date of service: Dec 03, 2024 Family History: FHx: multiple myeloma G8 MOTHER, Allergies: Coded Allergies: No Known Drug Allergy (Verified Allergy, Unknown, 12/24/23) Home Meds Active Scripts Nifedipine (Nifedipine ER) 30 Mg Tab, 90 MG PO DAILY for 30 Days, #90 TAB 0 Refills Prov:RUY CARUSO RESIDENT 09/25/24 Lisinopril (Lisinopril) 40 Mg Tab, 1 TAB PO DAILY, #30 TAB 1 Refill Prov:CAROLINA OVALLE MD 08/23/24 Duloxetine Hcl (Cymbalta) 20 Mg Cap, 1 CAP PO DAILY for 30 Days, #30 CAP Prov:ALE HARRIS RESIDENT 08/15/24 Insulin Glargine (Lantus) 100 Unit/Ml Inj, 35 UNITS SC BID@1000,2200 for 30 Days, #1 INJ Prov:CORRINE GRAHAM RESIDENT 12/28/23 Reported Medications Omeprazole (Gnp Omeprazole) 20 Mg Tab, 1 TAB PO DAILY, #90 TAB 1 Refill 12/02/24 Spironolactone (Spironolactone) 50 Mg Tab, 1 TAB PO DAILY, #30 TAB 5 Refills 12/02/24 Atorvastatin Calcium (Lipitor) 40 Mg Tab, 1 TAB PO DAILY, #30 TAB 5 Refills 12/02/24 Sildenafil Citrate (Sildenafil Citrate) 20 Mg Tab, 1 TAB PO DAILY for 30 Days, #30 09/24/24 Sucralfate (CARAFATE SUSP) 1 Gm/10 Ml Ss, 10 ML PO BID for 30 Days, #600 09/24/24 Senna (Senna-Time) 8.6 Mg Tab, 2 TAB PO DAILY for 30 Days, #60 09/24/24 Tirzepatide (Mounjaro) 7.5 Mg/0.5 Ml Inj, 7.5 MG SUBCUT QWEEKLY for 28 Days, #2 09/24/24 Ergocalciferol (Vitamin D) 50,000 Unit Cap, 1 CAP PO QWEEKLY for 28 Days, #4 09/24/24 Gabapentin (Gabapentin) 300 Mg Cap, 3 CAP PO TID for 30 Days, #270 09/24/24 Metoclopramide HCl (Metoclopramide Hydrochlor) 10 Mg Tab, 1 TAB PO TID for 30 Days, #90 09/24/24 Pantoprazole Sodium Sesquihydr (Pantoprazole Sodium) 40 Mg Tab, 1 TAB PO BID for 30 Days, #60 09/24/24 Polyethylene Glycol 3350 (Gnp Clearlax) 17 Gm/Scoop Pow, 17 GM PO DAILY for 30 Days, #510 09/24/24 Nifedipine (Nifedipine Er) 30 Mg Tab, 1 TAB PO BID for 30 Days, #60 09/24/24 Carvedilol (Carvedilol) 12.5 Mg Tab, 1 TAB PO BID for 30 Days, #60 09/24/24 Clonidine Hydrochloride (Clonidine Hcl) 0.1 Mg Tab, 1 TAB PO BIDPRN for 30 Days, #60 09/24/24 Insulin Lispro (Humalog Kwikpen) 100 Unit/Ml Inj, 25 UNITS SC AC for 40 Days, #30 08/14/24 Trazodone Hcl (Trazodone Hcl) 50 Mg Tab, 1 TAB PO QHSP PRN for PSYCHOPHYSIOLOGIC INSOMNIA for 30 Days, #30 08/14/24 Furosemide (Furosemide) 20 Mg Tab, 1 TAB PO BID for 90 Days, #180 08/14/24 Hydroxyzine Hcl (Hydroxyzine Hcl) 25 Mg Tab, 1 TAB PO DAILY for 30 Days, #30 08/14/24 Linaclotide Base (LINZESS) 145 Mcg Cap, 1 CAP PO DAILY for 30 Days, #30 08/14/24 Nitroglycerin (NTROSTAT SUBLINGUAL) 0.4 Mg Sl, 0.4 MG SL PRN, TAB *MAY REPEAT EVERY 5 MINUTES X 3 TOTAL IF NO RELIEF, INITIATE ANALGESIC THERAPY. NOTIFY PHYSICIAN *Do not crush. 12/25/23 Tramadol Hcl (Tramadol Hcl) 50 Mg Tab, 50 MG PO, TAB 12/25/23 Current Medications Current Medications Medications (Trade) Dose Ordered Sig/Jorge Route PRN Reason Start Time Stop Time Status Last Admin Trazodone HCl (Desyrel) 50 mg HS PO 12/02/24 22:00 12/02/24 22:34 Amlodipine Besylate (Norvasc Tablet) 10 mg DAILY PO 12/03/24 10:00 12/03/24 09:27 DC 12/03/24 09:12 Ceftriaxone Sodium 50 ml @ 100 mls/hr DAILY@09 IV 12/03/24 09:00 12/03/24 09:14 Empaglifozin (Jardiance) 10 mg DAILY PO 12/03/24 10:00 12/03/24 14:39 Spironolactone (Aldactone) 25 mg DAILY PO 12/03/24 10:00 12/03/24 14:38 Losartan Potassium (Cozaar Tablet) 50 mg DAILY PO 12/03/24 10:00 Atorvastatin Calcium (Lipitor) 40 mg HS PO 12/03/24 22:00 Vital Signs Vital Signs Date Time Temp Pulse Resp B/P (MAP) Pulse Ox O2 Delivery O2 Flow Rate FiO2 12/03/24 16:52 90 20 156/103 12/03/24 16:30 98.3 95 98.3 12/02/24 23:27 Room Air* 0 21 Labs/Diagnostic Data Labs Test 12/03/24 17:02 12/03/24 10:25 12/03/24 09:25 12/03/24 05:52 Range/Units POC Glucose 222 H 70-106 mg/dl Miscellaneous Referred Test (Refrg) Sent to [facility] Free Thyroxine (T4) Calculated 1.07 0.89-1.76 ng/dL Free Triiodothyronine (T3) pg/mL 4.03 2.3-4.2 pg/mL Urine Opiates Screen Neg NEGATIVE Urine Fentanyl Screen Neg NEGATIVE Urine Barbiturates Screen Neg NEGATIVE Urine Phencyclidine Screen Neg NEGATIVE Urine Amphetamines Screen Neg NEGATIVE Urine Benzodiazepines Screen Neg NEGATIVE Urine Cocaine Screen Neg NEGATIVE Urine Cannabinoids Screen Neg NEGATIVE White Blood Count 8.3 4.4-10.8 10^3/uL Red Blood Count 4.41 L 4.5-5.90 10^6/uL Hemoglobin 13.8 13.5-17.5 g/dL Hematocrit 38.2 L 41.0-53.0 % Mean Corpuscular Volume 86.6 80.0-100.0 fL Mean Corpuscular Hemoglobin 31.3 28.0-32.0 pg Mean Corpuscular Hemoglobin Concent 36.1 H 32.0-36.0 g/dL Red Cell Distribution Width 13.6 11.8-14.3 % Platelet Count 249 140-450 10^3/uL Mean Platelet Volume 8.2 6.9-10.8 fL Neutrophils (%) (Auto) 66.5 37.0-80.0 % Lymphocytes (%) (Auto) 17.3 10.0-50.0 % Monocytes (%) (Auto) 11.0 0.0-12.0 % Eosinophils (%) (Auto) 4.6 0.0-7.0 % Basophils (%) (Auto) 0.6 0.0-2.0 % Neutrophils # (Auto) 5.5 1.6-8.6 10 ^3/uL Lymphocytes # (Auto) 1.4 0.4-5.4 10 ^3/uL Monocytes # (Auto) 0.9 0-1.3 10 ^3/uL Eosinophils # (Auto) 0.4 0-0.8 10 ^3/uL Basophils # (Auto) 0.1 0-0.2 10 ^3/uL Nucleated Red Blood Cells 0.0 % Sodium Level 142 136-145 mmol/L Potassium Level 3.2 L 3.5-5.1 mmol/L Chloride Level 99 98-107 mmol/L Carbon Dioxide Level 34 H 20-31 mmol/L Anion Gap 9 5-15 Blood Urea Nitrogen 10 9-23 mg/dL Creatinine 0.79 0.700-1.30 mg/dL Glomerular Filtration Rate Calc 109 >90 mL/min BUN/Creatinine Ratio 12.7 10.0-20.0 Serum Glucose 154 H 74-106 mg/dL Calcium Level 8.7 8.7-10.4 mg/dL Total Bilirubin 0.7 0.2-1.0 mg/dL Aspartate Amino Transferase (AST) 43 H 13-40 U/L Alanine Aminotransferase (ALT) 48 H 7-40 U/L Alkaline Phosphatase 70 46-116 U/L Total Protein 6.5 5.7-8.2 g/dL Albumin 3.8 3.2-4.8 g/dL Triglycerides Level 243 H < 150 mg/dL Cholesterol Level 127 < 200 mg/dL LDL Cholesterol 64 < 100 mg/dL HDL Cholesterol 34 L 40-59 mg/dL Thyroid Stimulating Hormone (TSH) 7.35 H 0.55-4.78 uIU/mL Test 12/02/24 05:14 12/02/24 04:02 12/01/24 23:16 12/01/24 22:03 Range/Units Urine Color Yellow Yellow Urine Clarity Clear Clear Urine pH 6.0 5.0-9.0 Urine Specific [place] 1.038 H 1.001-1.035 Urine Protein Trace H Negative Urine Ketones Negative Negative Urine Blood Negative Negative /uL Urine Nitrite Negative Negative Urine Bilirubin Negative Negative Urine Urobilinogen Normal Negative mg/dL Urine Leukocyte Esterase Negative Negative /uL Urine RBC 3 0 - 3 /hpf Urine Microscopic WBC 4 H 0-3 /HPF Urine Squamous Epithelial Cells Few <5 /hpf Urine Bacteria None seen None Seen /hpf Urine Yeast (Budding) Occasional None Seen /hpf Urine Glucose 3+ H Normal mg/dL Magnesium Level 1.9 1.6-2.6 mg/dL Troponin I High Sensitivity 17 </=54 ng/L D-Dimer, Quantitative 0.26 0.0-0.49 mg/L FEU Lactic Acid Level 1.7 0.4-2.0 mmol/L B-Type Natriuretic Peptide 98.38 0-100 pg/mL Assessment [id number] C/O ABD PAIN NOW RESOLVED TREATED FOR COLITIS PER GI ABD SOFT NON TENDER AURE DIET NO CLINICAL/RADIOLOGIC CONFIRMATION OF INCARCERATED VENTRAL HERNIA CONTINUE CLOSE OBSERVATION Plan discussed with: Patient SHAQUILLE WATSON MD Dec 03, 2024 18:53
--- NOTE | 2024-12-03 20:00 | DVHINCON2 ---
DATE OF CONSULTATION: 12/03/2024 HISTORY OF PRESENT ILLNESS: This patient is 49 years old, coming in with abdominal pain, now feeling better. He is on a diet and no nausea or vomiting. No hematemesis or melena. No bleeding per rectum. PAST MEDICAL HISTORY: CAD, CHF, diabetes, and hypertension. PAST SURGICAL HISTORY: Recent colonoscopy that showed possible colitis for which he got treated. He also has been seen by me earlier with the possibility of a left possible ventral hernia. The CT scan study has been done and no ventral hernia is documented and there are no acute findings. CLINICAL IMPRESSION: To continue conservative management, close observation. He possibly has a left flank muscular dystrophy that has caused the pain and bulging, but there is no documented clinical or radiological ventral hernia, So, at this point, needs conservative management and consider emergent surgery based upon ongoing evaluation. MD EUSEBIA Blevins/GUY TID: [id number] RECEIPT: [id number] cc: Serafin Rodriguez MD
[2024-12-03] MEDS: ATORVASTATIN 20 MG TAB PO SCH (22:33)
--- NOTE | 2024-12-03 23:12 | DVHINCON2 ---
Date Seen: Dec 03, 2024 Referring Physician MD Tori Reason for Consultation Chest pain History of Present Illness This is a 49-year-old male with a PMH of nonischemic cardiomyopathy, congestive heart failure, hypertension, dyslipidemia, type 2 diabetes mellitus, chronic back pain, previous polysubstance abuse, and obesity who presents to the emergency room with complaint of chest pain and abdominal pain. The patient rep orts he has been experiencing these symptoms since February of this year. Patient reports undergoing an EGD and colonoscopy and was recently told that he had some sort of intra-abdominal bacterial infection (H.pylori) for which he was prescribed antibiotics. He also reports chest pain. He describes the chest pain as provoked when his blood pressure is elevated, intermittent, crushing in nature, substernal and nonradiating. He denies any associated symptoms. The patient reports that he has not been able to get his blood pressure under control at home despite taking antihypertensives as prescribed. Initial twelve lead electrocardiogram reveals sinus tachycardia with nonspecific ST segment changes to lateral leads, inferior Q-waves, and prolonged QTc interval. Initial troponin level of 16ng/L. Patient reports he has not followed up with a chemist enzymes in the outpatient setting. Of note, the patient underwent a coronary angiogram with left heart catheterization on 12/27/2023 which revealed no significant coronary artery disease, but sluggish flow and mild to moderate disease of mid LAD was noted. Patient was admitted to the hospital. I am asked to consult on this patient. Past Medical History Past medical history reviewed. No other significant than mentioned above. Past Surgical History Denies any previous surgeries Family History: FHx: multiple myeloma G8 MOTHER, Allergies: Coded Allergies: No Known Drug Allergy (Verified Allergy, Unknown, 12/24/23) Home Meds Active Scripts Nifedipine (Nifedipine ER) 30 Mg Tab, 90 MG PO DAILY for 30 Days, #90 TAB 0 Refills Prov:RUY CARUSO RESIDENT 09/25/24 Lisinopril (Lisinopril) 40 Mg Tab, 1 TAB PO DAILY, #30 TAB 1 Refill Prov:CAROLINA OVALLE MD 08/23/24 Duloxetine Hcl (Cymbalta) 20 Mg Cap, 1 CAP PO DAILY for 30 Days, #30 CAP Prov:ALE HARRIS RESIDENT 08/15/24 Insulin Glargine (Lantus) 100 Unit/Ml Inj, 35 UNITS SC BID@1000,2200 for 30 Days, #1 INJ Prov:CORRINE GRAHAM RESIDENT 12/28/23 Reported Medications Omeprazole (Gnp Omeprazole) 20 Mg Tab, 1 TAB PO DAILY, #90 TAB 1 Refill 12/02/24 Spironolactone (Spironolactone) 50 Mg Tab, 1 TAB PO DAILY, #30 TAB 5 Refills 12/02/24 Atorvastatin Calcium (Lipitor) 40 Mg Tab, 1 TAB PO DAILY, #30 TAB 5 Refills 12/02/24 Sildenafil Citrate (Sildenafil Citrate) 20 Mg Tab, 1 TAB PO DAILY for 30 Days, #30 09/24/24 Sucralfate (CARAFATE SUSP) 1 Gm/10 Ml Ss, 10 ML PO BID for 30 Days, #600 09/24/24 Senna (Senna-Time) 8.6 Mg Tab, 2 TAB PO DAILY for 30 Days, #60 09/24/24 Tirzepatide (Mounjaro) 7.5 Mg/0.5 Ml Inj, 7.5 MG SUBCUT QWEEKLY for 28 Days, #2 09/24/24 Ergocalciferol (Vitamin D) 50,000 Unit Cap, 1 CAP PO QWEEKLY for 28 Days, #4 09/24/24 Gabapentin (Gabapentin) 300 Mg Cap, 3 CAP PO TID for 30 Days, #270 09/24/24 Metoclopramide HCl (Metoclopramide Hydrochlor) 10 Mg Tab, 1 TAB PO TID for 30 Days, #90 09/24/24 Pantoprazole Sodium Sesquihydr (Pantoprazole Sodium) 40 Mg Tab, 1 TAB PO BID for 30 Days, #60 09/24/24 Polyethylene Glycol 3350 (Gnp Clearlax) 17 Gm/Scoop Pow, 17 GM PO DAILY for 30 Days, #510 09/24/24 Nifedipine (Nifedipine Er) 30 Mg Tab, 1 TAB PO BID for 30 Days, #60 09/24/24 Carvedilol (Carvedilol) 12.5 Mg Tab, 1 TAB PO BID for 30 Days, #60 09/24/24 Clonidine Hydrochloride (Clonidine Hcl) 0.1 Mg Tab, 1 TAB PO BIDPRN for 30 Days, #60 09/24/24 Insulin Lispro (Humalog Kwikpen) 100 Unit/Ml Inj, 25 UNITS SC AC for 40 Days, #30 08/14/24 Trazodone Hcl (Trazodone Hcl) 50 Mg Tab, 1 TAB PO QHSP PRN for PSYCHOPHYSIOLOGIC INSOMNIA for 30 Days, #30 08/14/24 Furosemide (Furosemide) 20 Mg Tab, 1 TAB PO BID for 90 Days, #180 08/14/24 Hydroxyzine Hcl (Hydroxyzine Hcl) 25 Mg Tab, 1 TAB PO DAILY for 30 Days, #30 08/14/24 Linaclotide Base (LINZESS) 145 Mcg Cap, 1 CAP PO DAILY for 30 Days, #30 08/14/24 Nitroglycerin (NTROSTAT SUBLINGUAL) 0.4 Mg Sl, 0.4 MG SL PRN, TAB *MAY REPEAT EVERY 5 MINUTES X 3 TOTAL IF NO RELIEF, INITIATE ANALGESIC THERAPY. NOTIFY PHYSICIAN *Do not crush. 12/25/23 Tramadol Hcl (Tramadol Hcl) 50 Mg Tab, 50 MG PO, TAB 12/25/23 Current Medications Current Medications Medications (Trade) Dose Ordered Sig/Jorge Route PRN Reason Start Time Stop Time Status Last Admin Amlodipine Besylate (Norvasc Tablet) 10 mg DAILY PO 12/03/24 10:00 12/03/24 09:27 DC 12/03/24 09:12 Ceftriaxone Sodium 50 ml @ 100 mls/hr DAILY@09 IV 12/03/24 09:00 12/03/24 09:14 Empaglifozin (Jardiance) 10 mg DAILY PO 12/03/24 10:00 12/03/24 14:39 Spironolactone (Aldactone) 25 mg DAILY PO 12/03/24 10:00 12/03/24 14:38 Losartan Potassium (Cozaar Tablet) 50 mg DAILY PO 12/03/24 10:00 Atorvastatin Calcium (Lipitor) 40 mg HS PO 12/03/24 22:00 12/03/24 22:33 Review of Systems Constitutional: No symptom reported Ears, Nose, & Throat: No symptom reported Eyes: No symptom reported Neurological: No symptoms reported Pulmonary/Respiratory: No symptoms reported Cardiovascular: Chest pain Gastrointestinal: Abdominal pain Genitourinary: No symptom reported Musculoskeletal: No symptom reported Skin: No symptom reported Psychiatric: No symptom reported Endocrine: No symptom reported Hematologic/Lymphatic: No symptom reported Vital Signs Vital Signs Date Time Temp Pulse Resp B/P (MAP) Pulse Ox O2 Delivery O2 Flow Rate FiO2 12/03/24 22:42 109 18 146/99 12/03/24 21:00 98.3 99 98.3 12/03/24 08:00 Room Air* 0 97 21 Physical Exam GENERAL: Alert and oriented x 3. No acute distress. Obese. EYES: PERRL, EOMI. Anicteric. HENT: Moist mucous membranes. LUNGS: Clear to auscultation bilaterally. CARDIOVASCULAR: Regular rate and rhythm. ABDOMEN: Soft, non-tender and non-distended. EXTREMITIES: No edema. NEUROLOGIC: No focal neurological deficits. SKIN: Warm, dry. Labs/Diagnostic Data Labs Test 12/03/24 17:02 12/03/24 10:25 12/03/24 09:25 12/03/24 05:52 Range/Units POC Glucose 222 H 70-106 mg/dl Miscellaneous Referred Test (Refrg) Sent to [facility] Free Thyroxine (T4) Calculated 1.07 0.89-1.76 ng/dL Free Triiodothyronine (T3) pg/mL 4.03 2.3-4.2 pg/mL Urine Opiates Screen Neg NEGATIVE Urine Fentanyl Screen Neg NEGATIVE Urine Barbiturates Screen Neg NEGATIVE Urine Phencyclidine Screen Neg NEGATIVE Urine Amphetamines Screen Neg NEGATIVE Urine Benzodiazepines Screen Neg NEGATIVE Urine Cocaine Screen Neg NEGATIVE Urine Cannabinoids Screen Neg NEGATIVE White Blood Count 8.3 4.4-10.8 10^3/uL Red Blood Count 4.41 L 4.5-5.90 10^6/uL Hemoglobin 13.8 13.5-17.5 g/dL Hematocrit 38.2 L 41.0-53.0 % Mean Corpuscular Volume 86.6 80.0-100.0 fL Mean Corpuscular Hemoglobin 31.3 28.0-32.0 pg Mean Corpuscular Hemoglobin Concent 36.1 H 32.0-36.0 g/dL Red Cell Distribution Width 13.6 11.8-14.3 % Platelet Count 249 140-450 10^3/uL Mean Platelet Volume 8.2 6.9-10.8 fL Neutrophils (%) (Auto) 66.5 37.0-80.0 % Lymphocytes (%) (Auto) 17.3 10.0-50.0 % Monocytes (%) (Auto) 11.0 0.0-12.0 % Eosinophils (%) (Auto) 4.6 0.0-7.0 % Basophils (%) (Auto) 0.6 0.0-2.0 % Neutrophils # (Auto) 5.5 1.6-8.6 10 ^3/uL Lymphocytes # (Auto) 1.4 0.4-5.4 10 ^3/uL Monocytes # (Auto) 0.9 0-1.3 10 ^3/uL Eosinophils # (Auto) 0.4 0-0.8 10 ^3/uL Basophils # (Auto) 0.1 0-0.2 10 ^3/uL Nucleated Red Blood Cells 0.0 % Sodium Level 142 136-145 mmol/L Potassium Level 3.2 L 3.5-5.1 mmol/L Chloride Level 99 98-107 mmol/L Carbon Dioxide Level 34 H 20-31 mmol/L Anion Gap 9 5-15 Blood Urea Nitrogen 10 9-23 mg/dL Creatinine 0.79 0.700-1.30 mg/dL Glomerular Filtration Rate Calc 109 >90 mL/min BUN/Creatinine Ratio 12.7 10.0-20.0 Serum Glucose 154 H 74-106 mg/dL Calcium Level 8.7 8.7-10.4 mg/dL Total Bilirubin 0.7 0.2-1.0 mg/dL Aspartate Amino Transferase (AST) 43 H 13-40 U/L Alanine Aminotransferase (ALT) 48 H 7-40 U/L Alkaline Phosphatase 70 46-116 U/L Total Protein 6.5 5.7-8.2 g/dL Albumin 3.8 3.2-4.8 g/dL Triglycerides Level 243 H < 150 mg/dL Cholesterol Level 127 < 200 mg/dL LDL Cholesterol 64 < 100 mg/dL HDL Cholesterol 34 L 40-59 mg/dL Thyroid Stimulating Hormone (TSH) 7.35 H 0.55-4.78 uIU/mL Test 12/02/24 05:14 12/02/24 04:02 12/01/24 23:16 12/01/24 22:03 Range/Units Urine Color Yellow Yellow Urine Clarity Clear Clear Urine pH 6.0 5.0-9.0 Urine Specific [place] 1.038 H 1.001-1.035 Urine Protein Trace H Negative Urine Ketones Negative Negative Urine Blood Negative Negative /uL Urine Nitrite Negative Negative Urine Bilirubin Negative Negative Urine Urobilinogen Normal Negative mg/dL Urine Leukocyte Esterase Negative Negative /uL Urine RBC 3 0 - 3 /hpf Urine Microscopic WBC 4 H 0-3 /HPF Urine Squamous Epithelial Cells Few <5 /hpf Urine Bacteria None seen None Seen /hpf Urine Yeast (Budding) Occasional None Seen /hpf Urine Glucose 3+ H Normal mg/dL Magnesium Level 1.9 1.6-2.6 mg/dL Troponin I High Sensitivity 17 </=54 ng/L D-Dimer, Quantitative 0.26 0.0-0.49 mg/L FEU Lactic Acid Level 1.7 0.4-2.0 mmol/L B-Type Natriuretic Peptide 98.38 0-100 pg/mL Assessment Chest pain, rule out coronary ischemia. Chronic compensated HFrEF, NYHA class II. Hypertensive urgency. Prolonged QTc interval. Rule out renal artery stenosis. Dyslipidemia. Hypokalemia. Type 2 diabetes mellitus. History of methamphetamine use. Obesity. Plan/Recommendation I agree with your ongoing assessment and care of plan. Patient has been seen by Twila Worrell NP on my behalf. We have discussed the plan with the patient. Given the patient's clinical presentation, comorbidities, and recurrent chest pain (states intermittently since February), we will offer the patient a nuclear stress test. Plan discussed with the patient full detail. The patient is agreeable. We will schedule the patient at soonest availability. Transthoracic echocardiogram to evaluate cardiac function and wall motion. Previous transthoracic echocardiogram from 07/21/2024 reveals an EF of 30-35%. Continue guideline directed medical therapy for CHF as tolerated: Up-titrate doses for tighter BP control. Stop calcium channel blockers as this is contraindicated in patients with reduced ejection fraction. Chest pain protocol. HEART score: 4 points (moderate score). Aggressive blood pressure control. Renal artery ultrasound. Lipid-lowering agent. Monitor QT interval; avoid medications that prolong QT interval as this places patient at risk for torsades de pointes. Nuclear stress test. Close cardiac surveillance. Additional plan as per the hospital course. Plan discussed with: Patient NYHA Physical activity limitations: Class2(Slight)fatigue,sob Date of Service: Dec 03, 2024 Billing Provider: BROOK ROBLERO MD Cardiology Common Codes: [id number] INP/OBS CARE (High) Cardiology Consultation Codes: [id number] CONSULT <45MIN BROOK ROBLERO MD Dec 03, 2024 23:12
[2024-12-04] VITALS (9 sets, daily range): BP systolic 144–197; BP diastolic 64–125; PULSE 92–110; RESP 17–20; TEMP 97.8–98.5; O2SAT 94–99
[2024-12-04] MEDS: REGADENOSON 0.4 MG/5 ML SYRG IV ONE ×2 (08:22)
--- NOTE | 2024-12-04 10:28 | DVHSR ---
APPROVED REPORT EXAM: Two-dimensional and M-mode echocardiogram with Doppler and color Doppler. Blood Pressure: 132/80 mmHg INDICATION Chest Pain RISK FACTORS Height: 5'7, Weight: 212 DIMENSIONS LVDd6.1 (3.8-5.7cm)LA (2D)4.1 (1.9-4.0cm)Aortic Root3.1 (2.0-3.7cm) LVDs5.1 (2.5-4.0cm)LA (MM) (1.9-4.0cm)Aortic Cusp Exc2.0 (1.5-2.0cm) EF (%) 32.0 (55-70%)Rt. Atrium4.5 (1.9-4.0cm)Asc. Aorta3.7 cm IVSd1.0 (0.7-1.1cm)RV (D)3.8 (1.8-2.4cm) PWd1.3 (0.7-1.1cm) Mitral Valve MitralMitral Stenosis E wavem/sMV Mean GR.1mmHg A wavem/sMV Peak GR.81mmHg E/A ratio0.02D MVAcm2 Aortic Valve Aortic ValveAortic Stenosis V10.72m/[place] Mean GR.3mmHg V21.02m/[place] Peak GR.4mmHg LVOT Diameter2.5 (1.8-2.4cm)Doppler AVA3.46cm2 Pulmonic Valve V20.85m/s Conclusion MODERATELY DILATED LV GLOBAL LV HYPOKINESIS LV EF IS 32% AND IS MODERATELY REDUCED NORMAL VALVES NO EFFUSION DILATED RV AND RA
--- NOTE | 2024-12-04 13:52 | DVHPN2 ---
Subjective Patient is still complains of abdominal pain Feels like a hard this on his left side of abdomen Undergoing cardiac workup Patient is seen by surgery and recommended for conservative management Changes from previous H/P or p: No Changes Eyes: No Pain, No Vision change, No Conjunctivae inflammation, No Eyelid inflammation, No Other, No Redness ENT: No Ear pain, No Ear discharge, No Nose pain, No Nose discharge, No Nose congestion, No Mouth pain, No Mouth swelling, No Throat pain, No Throat swelling, No Other Cardiovascular: Chest Pain; No Palpitations, No Orthopnea, No Paroxysmal Noc. Dyspnea, No Edema, No Lt Headedness, No Other Respiratory: No Cough, No Dry, No Shortness of breath, No SOB with excertion, No Wheezing, No Hemoptysis, No Pleuritic Pain, No Sputum, No Other Gastrointestinal: Nausea; No Vomiting; Abdominal Pain; No Diarrhea, No Constipation, No Melena, No Hematochezia, No Other Genitourinary: No Dysuria, No Frequency, No Incontinence, No Hematuria, No Retention, No Other Musculoskeletal: No other, No neck pain, No shoulder pain, No arm pain, No back pain, No hand pain, No leg pain, No foot pain Skin: No Rash, No Lesions, No Jaundice, No Bruising, No Other Objective Vitals Vital Signs Date Time Temp Pulse Resp B/P (MAP) Pulse Ox O2 Delivery O2 Flow Rate FiO2 12/04/24 13:36 93 17 144/93 12/04/24 08:42 97.8 95 97.8 12/04/24 08:00 Room Air* 0 97 21 Intake/Output Intake and Output 12/04/24 07:00 Intake Total 1010 ml Balance 1010 ml Intake Oral 660 ml IV Total 350 ml # Voids 5 Exam General: NAD, AAOX3 Chest: lung warren clear to auscultation Heart: RRR, no murmur Abdomen: non-distended,+ left side abdominal tenderness to palpation, +BS Medications Current Medications Medications Dose Ordered Sig/Jorge Route Start Time Stop Time Status Last Admin Dose Admin Clonidine HCl 0.1 mg Q4HP PRN PO 12/02/24 03:45 12/02/24 03:54 0.1 MG Trazodone HCl 50 mg HS PO 12/02/24 22:00 12/03/24 22:32 50 MG Diagnostic Test (Pha) 1 strip Q6HR 12/02/24 06:00 12/04/24 12:08 1 STRIP Insulin Human Regular Q6HR SC 12/02/24 06:00 12/04/24 11:39 9 UNITS Dextrose 50 ml UD PRN IV 12/02/24 03:45 Sodium Chloride 10 ml Q8HR IV 12/02/24 06:00 12/04/24 13:39 10 ML Acetaminophen/ Hydrocodone Bitart 1 tab Q4HP PRN PO 12/02/24 03:45 12/02/24 11:03 1 TAB Ondansetron HCl 4 mg Q4HP PRN IV 12/02/24 03:45 Docusate Sodium 100 mg BIDPRN PRN PO 12/02/24 03:45 12/03/24 09:12 100 MG Acetaminophen 650 mg Q6HP PRN PO 12/02/24 03:45 Nitroglycerin 0.4 mg Q5MINP PRN SL 12/02/24 04:30 Morphine Sulfate 2 mg Q30M PRN IV 12/02/24 04:30 Hydralazine HCl 10 mg Q6HP PRN IV 12/02/24 05:00 Cancel Carvedilol 25 mg Q12HR PO 12/02/24 10:00 12/04/24 09:25 25 MG Hydralazine HCl 10 mg Q6HP PRN IV 12/02/24 05:00 12/04/24 00:45 10 MG Ceftriaxone Sodium 50 ml @ 100 mls/hr DAILY@09 IV 12/03/24 09:00 12/04/24 09:24 100 MLS/HR Metronidazole 100 ml @ 100 mls/hr Q8HR IV 12/02/24 14:00 12/04/24 13:35 100 MLS/HR Ketorolac Tromethamine 15 mg Q6HPRN PRN IV 12/02/24 09:15 12/07/24 09:14 12/03/24 20:14 15 MG Hydromorphone HCl 0.5 mg Q4HP PRN IV 12/02/24 16:45 12/04/24 13:36 0.5 MG Empaglifozin 10 mg DAILY PO 12/03/24 10:00 12/04/24 09:26 10 MG Spironolactone 25 mg DAILY PO 12/03/24 10:00 12/04/24 09:25 25 MG Losartan Potassium 50 mg DAILY PO 12/03/24 10:00 12/04/24 09:26 50 MG Atorvastatin Calcium 40 mg HS PO 12/03/24 22:00 12/03/24 22:33 40 MG Laboratory Results Laboratory Tests 12/03/24 05:52 Urinalysis Test 12/02/24 05:14 Urine Color Yellow (Yellow) Urine Clarity Clear (Clear) Urine pH 6.0 (5.0-9.0) Urine Specific [place] 1.038 (1.001-1.035) Urine Protein Trace (Negative) H Urine Ketones Negative (Negative) Urine Blood Negative /uL (Negative) Urine Nitrite Negative (Negative) Urine Bilirubin Negative (Negative) Urine Urobilinogen Normal mg/dL (Negative) Urine Leukocyte Esterase Negative /uL (Negative) Urine RBC 3 /hpf (0 - 3) Urine Microscopic WBC 4 /HPF (0-3) H Urine Squamous Epithelial Cells Few /hpf (<5) Urine Bacteria None seen /hpf (None Seen) Urine Yeast (Budding) Occasional /hpf (None Urine Glucose 3+ mg/dL (Normal) H Assessment/Plan Assessment/Plan Abdominal pain Status post colonoscopy with polypectomy Status post EGD with positive H. pylori Plan: Discussed with Dr. Roger Reviewed extensor history of patient's including all the imaging studies Surgical consult appreciated recommended conservative management We will continue to monitor patient Plan discussed with: Patient My Orders Orders - FANY OLGUIN Procedure Category Date Status Time * Surgical Consult CONS 12/03/24 Transmitted Date of Service: Dec 04, 2024 Billing Provider: FANY OLGUIN Common Visit Codes: [id number] INP/OBS CARE(HIGH) FANY OLGUIN Dec 04, 2024 13:52
--- NOTE | 2024-12-04 16:50 | DVHPN2 ---
Subjective Patient is going for stress test Changes from previous H/P or p: No Changes Eyes: No Pain, No Vision change, No Conjunctivae inflammation, No Eyelid inflammation, No Other, No Redness ENT: No Ear pain, No Ear discharge, No Nose pain, No Nose discharge, No Nose congestion, No Mouth pain, No Mouth swelling, No Throat pain, No Throat swelling, No Other Cardiovascular: Chest Pain; No Palpitations, No Orthopnea, No Paroxysmal Noc. Dyspnea, No Edema, No Lt Headedness, No Other Respiratory: No Cough, No Dry, No Shortness of breath, No SOB with excertion, No Wheezing, No Hemoptysis, No Pleuritic Pain, No Sputum, No Other Gastrointestinal: Nausea; No Vomiting; Abdominal Pain; No Diarrhea, No Constipation, No Melena, No Hematochezia, No Other Genitourinary: No Dysuria, No Frequency, No Incontinence, No Hematuria, No Retention, No Other Musculoskeletal: No other, No neck pain, No shoulder pain, No arm pain, No back pain, No hand pain, No leg pain, No foot pain Skin: No Rash, No Lesions, No Jaundice, No Bruising, No Other Objective Vitals Vital Signs Date Time Temp Pulse Resp B/P (MAP) Pulse Ox O2 Delivery O2 Flow Rate FiO2 12/04/24 13:36 93 17 144/93 12/04/24 13:00 98.0 94 98.0 12/04/24 08:00 Room Air* 0 97 21 Intake/Output Intake and Output 12/04/24 07:00 Intake Total 1010 ml Balance 1010 ml Intake Oral 660 ml IV Total 350 ml # Voids 5 Exam HEENT pupils are reactive Neck is supple CV is S1-S2 regular rate and rhythm Respiratory diminished breath sound bases GI posterior bowel sounds soft nondistended nontender no guarding no rigidity Extremity no edema 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 Medications Current Medications Medications Dose Ordered Sig/Jorge Route Start Time Stop Time Status Last Admin Dose Admin Clonidine HCl 0.1 mg Q4HP PRN PO 12/02/24 03:45 12/02/24 03:54 0.1 MG Trazodone HCl 50 mg HS PO 12/02/24 22:00 12/03/24 22:32 50 MG Diagnostic Test (Pha) 1 strip Q6HR 12/02/24 06:00 12/04/24 12:08 1 STRIP Insulin Human Regular Q6HR SC 12/02/24 06:00 12/04/24 11:39 9 UNITS Dextrose 50 ml UD PRN IV 12/02/24 03:45 Sodium Chloride 10 ml Q8HR IV 12/02/24 06:00 12/04/24 13:39 10 ML Acetaminophen/ Hydrocodone Bitart 1 tab Q4HP PRN PO 12/02/24 03:45 12/02/24 11:03 1 TAB Ondansetron HCl 4 mg Q4HP PRN IV 12/02/24 03:45 Docusate Sodium 100 mg BIDPRN PRN PO 12/02/24 03:45 12/03/24 09:12 100 MG Acetaminophen 650 mg Q6HP PRN PO 12/02/24 03:45 Nitroglycerin 0.4 mg Q5MINP PRN SL 12/02/24 04:30 Morphine Sulfate 2 mg Q30M PRN IV 12/02/24 04:30 Hydralazine HCl 10 mg Q6HP PRN IV 12/02/24 05:00 Cancel Carvedilol 25 mg Q12HR PO 12/02/24 10:00 12/04/24 09:25 25 MG Hydralazine HCl 10 mg Q6HP PRN IV 12/02/24 05:00 12/04/24 00:45 10 MG Ceftriaxone Sodium 50 ml @ 100 mls/hr DAILY@09 IV 12/03/24 09:00 12/04/24 09:24 100 MLS/HR Metronidazole 100 ml @ 100 mls/hr Q8HR IV 12/02/24 14:00 12/04/24 13:35 100 MLS/HR Ketorolac Tromethamine 15 mg Q6HPRN PRN IV 12/02/24 09:15 12/07/24 09:14 12/03/24 20:14 15 MG Hydromorphone HCl 0.5 mg Q4HP PRN IV 12/02/24 16:45 12/04/24 13:36 0.5 MG Empaglifozin 10 mg DAILY PO 12/03/24 10:00 12/04/24 09:26 10 MG Spironolactone 25 mg DAILY PO 12/03/24 10:00 12/04/24 09:25 25 MG Losartan Potassium 50 mg DAILY PO 12/03/24 10:00 12/04/24 09:26 50 MG Atorvastatin Calcium 40 mg HS PO 12/03/24 22:00 12/03/24 22:33 40 MG Laboratory Results Laboratory Tests 12/03/24 05:52 Urinalysis Test 12/02/24 05:14 Urine Color Yellow (Yellow) Urine Clarity Clear (Clear) Urine pH 6.0 (5.0-9.0) Urine Specific [place] 1.038 (1.001-1.035) Urine Protein Trace (Negative) H Urine Ketones Negative (Negative) Urine Blood Negative /uL (Negative) Urine Nitrite Negative (Negative) Urine Bilirubin Negative (Negative) Urine Urobilinogen Normal mg/dL (Negative) Urine Leukocyte Esterase Negative /uL (Negative) Urine RBC 3 /hpf (0 - 3) Urine Microscopic WBC 4 /HPF (0-3) H Urine Squamous Epithelial Cells Few /hpf (<5) Urine Bacteria None seen /hpf (None Seen) Urine Yeast (Budding) Occasional /hpf (None Urine Glucose 3+ mg/dL (Normal) H Assessment/Plan Assessment/Plan 49-year-old male with a known history of congestive heart failure with systolic dysfunction, cardiomyopathy with the EF of 30-35%, hypertension, dyslipidemia, type 2 diabetes mellitus who initially present with the hospital with the chest pain and abdominal pain found to have 1. Acute on chronic congestive heart failure exacerbation with systolic 2. Chest pain rule out NC 3. Abdominal pain with some abdominal distention to the left side 4. Cardiomyopathy 5. Diabetes mellitus type 2 6. Illicit drug use/methamphetamine use 7. Morbid obesity class I 8. Chronic insomnia -surgical consultation, continue current medications Plan discussed with: Patient My Orders Orders - GENIE MELENDEZ MD Procedure Category Date Status Time Cardiac DIET 12/04/24 Transmitted Diet-2gna,Lofat,Lochol Lunch Date of Service: Dec 04, 2024 Billing Provider: GENIE MELENDEZ MD Common Visit Codes: [id number] INP/OBS CARE(MOD) GENIE MELENDEZ MD Dec 04, 2024 16:50
--- NOTE | 2024-12-04 23:35 | DVHPN2 ---
Progress Note - Dictate Date Seen: Dec 04, 2024 Medical Necessity Reason Pt with a Central, PICC or Fol: No Subjective Patient was seen and evaluated in follow up. Patient is complaining of persisting abdominal pain, states he feels like there is a hard lump on the left side of his abdomen. Surgeon recommending for conservative management. BS are in the 270's. Renal artery Duplex showed no findings to suggest renal artery stenosis. Telemetry reviewed. vital signs Vital Sign Date Time Temp Pulse Resp B/P (MAP) Pulse Ox O2 Delivery O2 Flow Rate FiO2 12/04/24 13:36 93 17 144/93 12/04/24 08:42 97.8 95 97.8 12/04/24 08:00 Room Air* 0 97 21 Total Intake and Output 12/03/24 12/03/24 12/04/24 15:00 23:00 07:00 Intake Total 50 ml 760 ml 200 ml Balance 50 ml 760 ml 200 ml medications Current Medications Medications Dose Ordered Sig/Jorge Route Start Time Stop Time Status Last Admin Dose Admin Clonidine HCl 0.1 mg Q4HP PRN PO 12/02/24 03:45 12/02/24 03:54 0.1 MG Trazodone HCl 50 mg HS PO 12/02/24 22:00 12/03/24 22:32 50 MG Diagnostic Test (Pha) 1 strip Q6HR 12/02/24 06:00 12/04/24 12:08 1 STRIP Insulin Human Regular Q6HR SC 12/02/24 06:00 12/04/24 11:39 9 UNITS Dextrose 50 ml UD PRN IV 12/02/24 03:45 Sodium Chloride 10 ml Q8HR IV 12/02/24 06:00 12/04/24 13:39 10 ML Acetaminophen/ Hydrocodone Bitart 1 tab Q4HP PRN PO 12/02/24 03:45 12/02/24 11:03 1 TAB Ondansetron HCl 4 mg Q4HP PRN IV 12/02/24 03:45 Docusate Sodium 100 mg BIDPRN PRN PO 12/02/24 03:45 12/03/24 09:12 100 MG Acetaminophen 650 mg Q6HP PRN PO 12/02/24 03:45 Nitroglycerin 0.4 mg Q5MINP PRN SL 12/02/24 04:30 Morphine Sulfate 2 mg Q30M PRN IV 12/02/24 04:30 Hydralazine HCl 10 mg Q6HP PRN IV 12/02/24 05:00 Cancel Carvedilol 25 mg Q12HR PO 12/02/24 10:00 12/04/24 09:25 25 MG Hydralazine HCl 10 mg Q6HP PRN IV 12/02/24 05:00 12/04/24 00:45 10 MG Ceftriaxone Sodium 50 ml @ 100 mls/hr DAILY@09 IV 12/03/24 09:00 12/04/24 09:24 100 MLS/HR Metronidazole 100 ml @ 100 mls/hr Q8HR IV 12/02/24 14:00 12/04/24 13:35 100 MLS/HR Ketorolac Tromethamine 15 mg Q6HPRN PRN IV 12/02/24 09:15 12/07/24 09:14 12/03/24 20:14 15 MG Hydromorphone HCl 0.5 mg Q4HP PRN IV 12/02/24 16:45 12/04/24 13:36 0.5 MG Empaglifozin 10 mg DAILY PO 12/03/24 10:00 12/04/24 09:26 10 MG Spironolactone 25 mg DAILY PO 12/03/24 10:00 12/04/24 09:25 25 MG Losartan Potassium 50 mg DAILY PO 12/03/24 10:00 12/04/24 09:26 50 MG Atorvastatin Calcium 40 mg HS PO 12/03/24 22:00 12/03/24 22:33 40 MG objective GENERAL: Alert and oriented x 3. No acute distress. Obese. EYES: PERRL, EOMI. Anicteric. HENT: Moist mucous membranes. LUNGS: Clear to auscultation bilaterally. CARDIOVASCULAR: Regular rate and rhythm. ABDOMEN: Soft, non-tender and non-distended. EXTREMITIES: No edema. NEUROLOGIC: No focal neurological deficits. SKIN: Warm, dry. laboratory and microbiology Laboratory Tests 12/03/24 05:52 Test 12/03/24 05:52 Range/Units Serum Glucose 154 H 74-106 mg/dL Problem List Chest pain, rule out coronary ischemia. Chronic compensated HFrEF, NYHA class II. Hypertensive urgency. Prolonged QTc interval. Rule out renal artery stenosis. Dyslipidemia. Hypokalemia. Type 2 diabetes mellitus. History of methamphetamine use. Obesity. Assessment/Plan Continued all current supportive medical care. Morphine and [place] for pain management. Lipitor. Coreg, Clonidine, Losartan. IV antibiotics as ordered. IV Hydralazine for SBP >150. Nitro SL. Additional plan as per the hospital course. Plan discussed with: Patient BROOK ROBLERO MD Dec 04, 2024 15:10
[2024-12-05] VITALS (11 sets, daily range): BP systolic 122–195; BP diastolic 84–133; PULSE 94–109; RESP 15–19; TEMP 37.1; O2SAT 93–98
[2024-12-05] MEDS: ONDANSETRON HCL 4 MG/2 ML VIAL IV PRN (00:52)
--- NOTE | 2024-12-05 14:17 | DVHPN2 ---
Subjective Patient has improving left side abdominal pain, large bowel movement today, after bowel movement pain radiating into lower abdomen at the testicular area and left groin Still complaining of not able to sleep Changes from previous H/P or p: No Changes Eyes: No Pain, No Vision change, No Conjunctivae inflammation, No Eyelid inflammation, No Other, No Redness ENT: No Ear pain, No Ear discharge, No Nose pain, No Nose discharge, No Nose congestion, No Mouth pain, No Mouth swelling, No Throat pain, No Throat swelling, No Other Cardiovascular: Chest Pain; No Palpitations, No Orthopnea, No Paroxysmal Noc. Dyspnea, No Edema, No Lt Headedness, No Other Respiratory: No Cough, No Dry, No Shortness of breath, No SOB with excertion, No Wheezing, No Hemoptysis, No Pleuritic Pain, No Sputum, No Other Gastrointestinal: Nausea; No Vomiting; Abdominal Pain; No Diarrhea, No Constipation, No Melena, No Hematochezia, No Other Genitourinary: No Dysuria, No Frequency, No Incontinence, No Hematuria, No Retention, No Other Musculoskeletal: No other, No neck pain, No shoulder pain, No arm pain, No back pain, No hand pain, No leg pain, No foot pain Skin: No Rash, No Lesions, No Jaundice, No Bruising, No Other Objective Vitals Vital Signs Date Time Temp Pulse Resp B/P (MAP) Pulse Ox O2 Delivery O2 Flow Rate FiO2 12/05/24 13:42 94 16 139/88 12/05/24 09:00 98.3 93 98.3 12/05/24 08:00 Room Air* 0 97 21 Intake/Output Intake and Output 12/05/24 07:00 Intake Total 1350 ml Balance 1350 ml Intake Oral 1100 ml IV Total 250 ml # Voids 5 # Bowel Movements 3 Exam General: NAD, AAOX3 Chest: lung warren clear to auscultation Heart: RRR, no murmur Abdomen: non-distended,+ left side abdominal tenderness to palpation, +BS Medications Current Medications Medications Dose Ordered Sig/Jorge Route Start Time Stop Time Status Last Admin Dose Admin Clonidine HCl 0.1 mg Q4HP PRN PO 12/02/24 03:45 12/05/24 05:07 0.1 MG Trazodone HCl 50 mg HS PO 12/02/24 22:00 12/04/24 21:46 50 MG Diagnostic Test (Pha) 1 strip Q6HR 12/02/24 06:00 12/05/24 12:14 1 STRIP Insulin Human Regular Q6HR SC 12/02/24 06:00 12/05/24 12:14 3 UNITS Dextrose 50 ml UD PRN IV 12/02/24 03:45 Sodium Chloride 10 ml Q8HR IV 12/02/24 06:00 12/05/24 13:42 10 ML Acetaminophen/ Hydrocodone Bitart 1 tab Q4HP PRN PO 12/02/24 03:45 12/02/24 11:03 1 TAB Ondansetron HCl 4 mg Q4HP PRN IV 12/02/24 03:45 12/05/24 06:57 4 MG Docusate Sodium 100 mg BIDPRN PRN PO 12/02/24 03:45 12/03/24 09:12 100 MG Acetaminophen 650 mg Q6HP PRN PO 12/02/24 03:45 Nitroglycerin 0.4 mg Q5MINP PRN SL 12/02/24 04:30 Morphine Sulfate 2 mg Q30M PRN IV 12/02/24 04:30 Hydralazine HCl 10 mg Q6HP PRN IV 12/02/24 05:00 Cancel Carvedilol 25 mg Q12HR PO 12/02/24 10:00 12/05/24 09:34 25 MG Hydralazine HCl 10 mg Q6HP PRN IV 12/02/24 05:00 12/05/24 07:29 10 MG Ceftriaxone Sodium 50 ml @ 100 mls/hr DAILY@09 IV 12/03/24 09:00 12/05/24 09:34 100 MLS/HR Metronidazole 100 ml @ 100 mls/hr Q8HR IV 12/02/24 14:00 12/05/24 13:41 100 MLS/HR Ketorolac Tromethamine 15 mg Q6HPRN PRN IV 12/02/24 09:15 12/07/24 09:14 12/04/24 20:14 15 MG Hydromorphone HCl 0.5 mg Q4HP PRN IV 12/02/24 16:45 12/05/24 13:42 0.5 MG Empaglifozin 10 mg DAILY PO 12/03/24 10:00 12/05/24 09:34 10 MG Spironolactone 25 mg DAILY PO 12/03/24 10:00 12/05/24 09:34 25 MG Losartan Potassium 50 mg DAILY PO 12/03/24 10:00 12/05/24 09:34 50 MG Atorvastatin Calcium 40 mg HS PO 12/03/24 22:00 12/04/24 21:44 40 MG Laboratory Results Laboratory Tests 12/03/24 05:52 Urinalysis Test 12/02/24 05:14 Urine Color Yellow (Yellow) Urine Clarity Clear (Clear) Urine pH 6.0 (5.0-9.0) Urine Specific [place] 1.038 (1.001-1.035) Urine Protein Trace (Negative) H Urine Ketones Negative (Negative) Urine Blood Negative /uL (Negative) Urine Nitrite Negative (Negative) Urine Bilirubin Negative (Negative) Urine Urobilinogen Normal mg/dL (Negative) Urine Leukocyte Esterase Negative /uL (Negative) Urine RBC 3 /hpf (0 - 3) Urine Microscopic WBC 4 /HPF (0-3) H Urine Squamous Epithelial Cells Few /hpf (<5) Urine Bacteria None seen /hpf (None Seen) Urine Yeast (Budding) Occasional /hpf (None Urine Glucose 3+ mg/dL (Normal) H Labs and/or images reviewed: Labs reviewed by me, Image(s) reviewed by me Assessment/Plan Assessment/Plan Abdominal pain Status post colonoscopy with polypectomy Status post EGD with positive H. pylori Plan: Discussed with Dr. Roger Protonix and Zofran High-fiber diet Stool softeners Stressed importance of GI follow-up on an outpatient basis with patient Plan discussed with: Patient, Other (Hospitalist Dr. Valle) Date of Service: Dec 05, 2024 Billing Provider: FANY OLGUIN Common Visit Codes: [id number] INP/OBS CARE(HIGH) FANY OLGUIN Dec 05, 2024 14:17
[2024-12-05] MEDS ORDERED: DOCUSATE SOD 100 MG CAP PO PRN (14:30)
[2024-12-05] MEDS ORDERED: EMPA1TAB PO (16:01)
[2024-12-05] MEDS ORDERED: HYDR-4902 PO (16:01)
[2024-12-05] MEDS ORDERED: TRAZ-227 PO (16:01)
[2024-12-05] MEDS ORDERED: CARV25TA55 PO (16:01)
--- NOTE | 2024-12-05 16:13 | DVHDS2 ---
Discharge Summary Date of Admission Dec 02, 2024 at 04:19 Date of Discharge: Dec 05, 2024 Labs/Diagnostic Data: Laboratory Results Test 12/05/24 11:17 12/03/24 10:25 12/03/24 09:25 12/03/24 05:52 POC Glucose 180 mg/dl (70-106) Miscellaneous Referred Test (Refrg) Sent to [facility] Free Thyroxine (T4) Calculated 1.07 ng/dL (0.89-1.76) Free Triiodothyronine (T3) pg/mL 4.03 pg/mL (2.3-4.2) Urine Opiates Screen Neg (NEGATIVE) Urine Fentanyl Screen Neg (NEGATIVE) Urine Barbiturates Screen Neg (NEGATIVE) Urine Phencyclidine Screen Neg (NEGATIVE) Urine Amphetamines Screen Neg (NEGATIVE) Urine Benzodiazepines Screen Neg (NEGATIVE) Urine Cocaine Screen Neg (NEGATIVE) Urine Cannabinoids Screen Neg (NEGATIVE) White Blood Count 8.3 10^3/uL (4.4-10.8) Red Blood Count 4.41 10^6/uL (4.5-5.90) Hemoglobin 13.8 g/dL (13.5-17.5) Hematocrit 38.2 % (41.0-53.0) Mean Corpuscular Volume 86.6 fL (80.0-100.0) Mean Corpuscular Hemoglobin 31.3 pg (28.0-32.0) Mean Corpuscular Hemoglobin Concent 36.1 g/dL (32.0-36.0) Red Cell Distribution Width 13.6 % (11.8-14.3) Platelet Count 249 10^3/uL (140-450) Mean Platelet Volume 8.2 fL (6.9-10.8) Neutrophils (%) (Auto) 66.5 % (37.0-80.0) Lymphocytes (%) (Auto) 17.3 % (10.0-50.0) Monocytes (%) (Auto) 11.0 % (0.0-12.0) Eosinophils (%) (Auto) 4.6 % (0.0-7.0) Basophils (%) (Auto) 0.6 % (0.0-2.0) Neutrophils # (Auto) 5.5 10 ^3/uL (1.6-8.6) Lymphocytes # (Auto) 1.4 10 ^3/uL (0.4-5.4) Monocytes # (Auto) 0.9 10 ^3/uL (0-1.3) Eosinophils # (Auto) 0.4 10 ^3/uL (0-0.8) Basophils # (Auto) 0.1 10 ^3/uL (0-0.2) Nucleated Red Blood Cells 0.0 % Sodium Level 142 mmol/L (136-145) Potassium Level 3.2 mmol/L (3.5-5.1) Chloride Level 99 mmol/L (98-107) Carbon Dioxide Level 34 mmol/L (20-31) Anion Gap 9 (5-15) Blood Urea Nitrogen 10 mg/dL (9-23) Creatinine 0.79 mg/dL (0.700-1.30) Glomerular Filtration Rate Calc 109 mL/min (>90) BUN/Creatinine Ratio 12.7 (10.0-20.0) Serum Glucose 154 mg/dL (74-106) Calcium Level 8.7 mg/dL (8.7-10.4) Total Bilirubin 0.7 mg/dL (0.2-1.0) Aspartate Amino Transferase (AST) 43 U/L (13-40) Alanine Aminotransferase (ALT) 48 U/L (7-40) Alkaline Phosphatase 70 U/L (46-116) Total Protein 6.5 g/dL (5.7-8.2) Albumin 3.8 g/dL (3.2-4.8) Triglycerides Level 243 mg/dL (< 150) Cholesterol Level 127 mg/dL (< 200) LDL Cholesterol 64 mg/dL (< 100) HDL Cholesterol 34 mg/dL (40-59) Thyroid Stimulating Hormone (TSH) 7.35 uIU/mL (0.55-4.78) Test 12/02/24 05:14 12/02/24 04:02 12/01/24 23:16 12/01/24 22:03 Urine Color Yellow (Yellow) Urine Clarity Clear (Clear) Urine pH 6.0 (5.0-9.0) Urine Specific Gabriels 1.038 (1.001-1.035) Urine Protein Trace (Negative) Urine Ketones Negative (Negative) Urine Blood Negative /uL (Negative) Urine Nitrite Negative (Negative) Urine Bilirubin Negative (Negative) Urine Urobilinogen Normal mg/dL (Negative) Urine Leukocyte Esterase Negative /uL (Negative) Urine RBC 3 /hpf (0 - 3) Urine Microscopic WBC 4 /HPF (0-3) Urine Squamous Epithelial Cells Few /hpf (<5) Urine Bacteria None seen /hpf (None Seen) Urine Yeast (Budding) Occasional /hpf (None Urine Glucose 3+ mg/dL (Normal) Magnesium Level 1.9 mg/dL (1.6-2.6) Troponin I High Sensitivity 17 ng/L (</=54) D-Dimer, Quantitative 0.26 mg/L FEU (0.0-0.49) Lactic Acid Level 1.7 mmol/L (0.4-2.0) B-Type Natriuretic Peptide 98.38 pg/mL (0-100) Other Laboratory Tests 12/03/24 05:52 Brief Hx & Hospital Course: 49-year-old male with a known history of congestive heart failure with systolic dysfunction, cardiomyopathy with the EF of 30-35%, hypertension, dyslipidemia, type 2 diabetes mellitus who initially present with the hospital with the chest pain and abdominal pain found to have acute on chronic congestive heart failure exacerbation with systolic dysfunction, patient was ruled out for acute MT by negative Lexiscan stress test. Cardiology was seeing the patient patient also complaining of abdominal pain with a recent history of colonoscopy with polypectomy, also patient had H pylori in the past was treated. GI and general surgery was following the patient patient kept complaining of deficit abdominal pain and above there was no evidence of ventral hernia. General surgery cleared the patient to be discharged. Patient is being discharged under stable condition. Patient does have history of illicit drug use including meth, drug cessation counseling has been discussed. Patient also have chronic narcotic dependency and chronic insomnia requesting pain medication and sleeping aid. Patient is being discharged under stable condition. n Condition at Discharge: Stable Final Diagnosis/Problems List 49-year-old male with a known history of congestive heart failure with systolic dysfunction, cardiomyopathy with the EF of 30-35%, hypertension, dyslipidemia, type 2 diabetes mellitus who initially present with the hospital with the chest pain and abdominal pain found to have 1. Acute on chronic congestive heart failure exacerbation with systolic 2. Chest pain rule out MT 3. Abdominal pain with some abdominal distention to the left side 4. Cardiomyopathy 5. Diabetes mellitus type 2 6. Illicit drug use/methamphetamine use 7. Morbid obesity class I 8. Chronic insomnia Discharge Disposition: Home SNF Discharge Will this Physician continue t: No Discharge Instruct/Medications Diet: Cardiac 2g Na,low cholest Diet comment: 1800 ADA diet Activity: See Comment Activity comment: No driving, no signing of legal documents, no planning on machinery while on narcotics and sleeping aid. Follow Up/Referral: Follow up with the PCP in one week Follow up with Cardiology in 1-2 weeks Medications: As reconciled and prescribed. New Medications: Carvedilol (Carvedilol) 25 Mg Tab 1 TAB PO BID, #60 TAB 5 Refills Hydrocodone-Acetaminophen (Hydrocodone Bitartrate/AC 5-325 mg) 1 Tab Tab 1 TAB PO Q8HP PRN, #14 TAB Empagliflozin (Jardiance) 10 Mg Tab 10 MG PO DAILY, #30 TAB Continued Medications: Atorvastatin Calcium (Lipitor) 40 Mg Tab 1 TAB PO DAILY, #30 TAB 5 Refills Clonidine Hydrochloride (Clonidine Hcl) 0.1 Mg Tab 1 TAB PO BIDPRN for 30 Days, #60 Duloxetine Hcl (Cymbalta) 20 Mg Cap 1 CAP PO DAILY for 30 Days, #30 CAP Ergocalciferol (Vitamin D) 50,000 Unit Cap 1 CAP PO QWEEKLY for 28 Days, #4 Furosemide (Furosemide) 20 Mg Tab 1 TAB PO BID for 90 Days, #180 Gabapentin (Gabapentin) 300 Mg Cap 3 CAP PO TID for 30 Days, #270 Hydroxyzine Hcl (Hydroxyzine Hcl) 25 Mg Tab 1 TAB PO DAILY for 30 Days, #30 Insulin Glargine (Lantus) 100 Unit/Ml Inj 35 UNITS SC BID@1000,2200 for 30 Days, #1 INJ Insulin Lispro (Humalog Kwikpen) 100 Unit/Ml Inj 25 UNITS SC AC for 40 Days, #30 Linaclotide Base (Linzess) 145 Mcg Cap 1 CAP PO DAILY for 30 Days, #30 Lisinopril (Lisinopril) 40 Mg Tab 1 TAB PO DAILY, #30 TAB 1 Refill Metoclopramide HCl (Metoclopramide Hydrochlor) 10 Mg Tab 1 TAB PO TID for 30 Days, #90 Nitroglycerin (Ntrostat Sublingual) 0.4 Mg Sl 0.4 MG SL PRN, TAB *MAY REPEAT EVERY 5 MINUTES X 3 TOTAL IF NO RELIEF, INITIATE ANALGESIC THERAPY. NOTIFY PHYSICIAN *Do not crush. Omeprazole (Gnp Omeprazole) 20 Mg Tab 1 TAB PO DAILY, #90 TAB 1 Refill Pantoprazole Sodium Sesquihydr (Pantoprazole Sodium) 40 Mg Tab 1 TAB PO BID for 30 Days, #60 Polyethylene Glycol 3350 (Gnp Clearlax) 17 Gm/Scoop Pow 17 GM PO DAILY for 30 Days, #510 Senna (Senna-Time) 8.6 Mg Tab 2 TAB PO DAILY for 30 Days, #60 Sildenafil Citrate (Sildenafil Citrate) 20 Mg Tab 1 TAB PO DAILY for 30 Days, #30 Spironolactone (Spironolactone) 50 Mg Tab 1 TAB PO DAILY, #30 TAB 5 Refills Sucralfate (Carafate Susp) 1 Gm/10 Ml Ss 10 ML PO BID for 30 Days, #600 Tirzepatide (Mounjaro) 7.5 Mg/0.5 Ml Inj 7.5 MG SUBCUT QWEEKLY for 28 Days, #2 Trazodone Hcl (Trazodone Hcl) 50 Mg Tab 1 TAB PO QHSP PRN for PSYCHOPHYSIOLOGIC INSOMNIA for 14 Days, #14 TAB (This prescription has been renewed) Discontinued Medications: Carvedilol (Carvedilol) 12.5 Mg Tab 1 TAB PO BID for 30 Days, #60 Nifedipine (Nifedipine Er) 30 Mg Tab 1 TAB PO BID for 30 Days, #60 Nifedipine (Nifedipine ER) 30 Mg Tab 90 MG PO DAILY for 30 Days, #90 TAB 0 Refills Tramadol Hcl (Tramadol Hcl) 50 Mg Tab 50 MG PO, TAB Scheduled Atorvastatin Calcium (Lipitor), 1 TAB PO DAILY, (Reported) Carvedilol (Carvedilol), 1 TAB PO BID, (Reported) Carvedilol (Carvedilol), 1 TAB PO BID Clonidine Hydrochloride (Clonidine Hcl), 1 TAB PO BIDPRN, (Reported) Duloxetine Hcl (Cymbalta), 1 CAP PO DAILY Empagliflozin (Jardiance), 10 MG PO DAILY Ergocalciferol (Vitamin D), 1 CAP PO QWEEKLY, (Reported) Furosemide (Furosemide), 1 TAB PO BID, (Reported) Gabapentin (Gabapentin), 3 CAP PO TID, (Reported) Hydroxyzine Hcl (Hydroxyzine Hcl), 1 TAB PO DAILY, (Reported) Insulin Glargine (Lantus), 35 UNITS SC BID@1000,2200 Insulin Lispro (Humalog Kwikpen), 25 UNITS SC AC, (Reported) Linaclotide Base (Linzess), 1 CAP PO DAILY, (Reported) Lisinopril (Lisinopril), 1 TAB PO DAILY Metoclopramide HCl (Metoclopramide Hydrochlor), 1 TAB PO TID, (Reported) Nifedipine (Nifedipine Er), 1 TAB PO BID, (Reported) Nifedipine (Nifedipine ER), 90 MG PO DAILY Nitroglycerin (Ntrostat Sublingual), 0.4 MG SL PRN, (Reported) Omeprazole (Gnp Omeprazole), 1 TAB PO DAILY, (Reported) Pantoprazole Sodium Sesquihydr (Pantoprazole Sodium), 1 TAB PO BID, (Reported) Polyethylene Glycol 3350 (Gnp Clearlax), 17 GM PO DAILY, (Reported) Senna (Senna-Time), 2 TAB PO DAILY, (Reported) Sildenafil Citrate (Sildenafil Citrate), 1 TAB PO DAILY, (Reported) Spironolactone (Spironolactone), 1 TAB PO DAILY, (Reported) Sucralfate (Carafate Susp), 10 ML PO BID, (Reported) Tirzepatide (Mounjaro), 7.5 MG SUBCUT QWEEKLY, (Reported) Scheduled PRN Hydrocodone-Acetaminophen (Hydrocodone Bitartrate/AC 5-325 mg), 1 TAB PO Q8HP PRN Trazodone Hcl (Trazodone Hcl), 1 TAB PO QHSP PRN for PSYCHOPHYSIOLOGIC INSOMNIA Miscellaneous Medications Tramadol Hcl (Tramadol Hcl), 50 MG PO, (Reported) Discharge Statement: "Patient was advised to return to the ER or call 911 if any headaches, dizziness, shortness of breath, chest pain, abdominal pain, bleeding, fevers, or worsening of medical condition. Patient was counseled about treatment plan, medications, possible side effects, patientverbalized understanding. All questions were answered to the best of my ability. This discharge took greater then 30 minutes in planning, reviewing documentation, counseling the patient, and discussing with other team members." ASSESSMENT ASSESSMENT Assessment 49-year-old male with a known history of congestive heart failure with systolic dysfunction, cardiomyopathy with the EF of 30-35%, hypertension, dyslipidemia, type 2 diabetes mellitus who initially present with the hospital with the chest pain and abdominal pain found to have 1. Acute on chronic congestive heart failure exacerbation with systolic 2. Chest pain rule out MT 3. Abdominal pain with some abdominal distention to the left side 4. Cardiomyopathy 5. Diabetes mellitus type 2 6. Illicit drug use/methamphetamine use 7. Morbid obesity class I 8. Chronic insomnia Date of Service: Dec 05, 2024 Billing Provider: GENIE MELENDEZ MD Common Visit Codes: 32190-ZXN/OBS DISCH DAY >30min GENIE MELENDEZ MD Dec 05, 2024 16:13
--- NOTE | 2024-12-05 23:57 | DVHPN2 ---
Progress Note - Dictate Date Seen: Dec 05, 2024 Medical Necessity Reason Pt with a Central, PICC or Fol: No Subjective Patient was seen and evaluated in follow up. Patient has no new complaints at this time. Patient denies any cardiac symptoms. Patient is cardiac stable for discharge. Telemetry reviewed. vital signs Vital Sign Date Time Temp Pulse Resp B/P (MAP) Pulse Ox O2 Delivery O2 Flow Rate FiO2 12/05/24 13:42 94 16 139/88 12/05/24 13:00 98.3 97 98.3 12/05/24 08:00 Room Air* 0 97 21 Total Intake and Output 12/04/24 12/04/24 12/05/24 15:00 23:00 07:00 Intake Total 150 ml 1100 ml 100 ml Balance 150 ml 1100 ml 100 ml medications Current Medications Medications Dose Ordered Sig/Jorge Route Start Time Stop Time Status Last Admin Dose Admin Clonidine HCl 0.1 mg Q4HP PRN PO 12/02/24 03:45 12/05/24 05:07 0.1 MG Trazodone HCl 50 mg HS PO 12/02/24 22:00 12/04/24 21:46 50 MG Diagnostic Test (Pha) 1 strip Q6HR 12/02/24 06:00 12/05/24 12:14 1 STRIP Insulin Human Regular Q6HR SC 12/02/24 06:00 12/05/24 12:14 3 UNITS Dextrose 50 ml UD PRN IV 12/02/24 03:45 Sodium Chloride 10 ml Q8HR IV 12/02/24 06:00 12/05/24 13:42 10 ML Acetaminophen/ Hydrocodone Bitart 1 tab Q4HP PRN PO 12/02/24 03:45 12/02/24 11:03 1 TAB Ondansetron HCl 4 mg Q4HP PRN IV 12/02/24 03:45 12/05/24 06:57 4 MG Docusate Sodium 100 mg BIDPRN PRN PO 12/02/24 03:45 12/03/24 09:12 100 MG Acetaminophen 650 mg Q6HP PRN PO 12/02/24 03:45 Nitroglycerin 0.4 mg Q5MINP PRN SL 12/02/24 04:30 Morphine Sulfate 2 mg Q30M PRN IV 12/02/24 04:30 Hydralazine HCl 10 mg Q6HP PRN IV 12/02/24 05:00 Cancel Carvedilol 25 mg Q12HR PO 12/02/24 10:00 12/05/24 09:34 25 MG Hydralazine HCl 10 mg Q6HP PRN IV 12/02/24 05:00 12/05/24 07:29 10 MG Ceftriaxone Sodium 50 ml @ 100 mls/hr DAILY@09 IV 12/03/24 09:00 12/05/24 09:34 100 MLS/HR Metronidazole 100 ml @ 100 mls/hr Q8HR IV 12/02/24 14:00 12/05/24 13:41 100 MLS/HR Ketorolac Tromethamine 15 mg Q6HPRN PRN IV 12/02/24 09:15 12/07/24 09:14 12/04/24 20:14 15 MG Hydromorphone HCl 0.5 mg Q4HP PRN IV 12/02/24 16:45 12/05/24 13:42 0.5 MG Empaglifozin 10 mg DAILY PO 12/03/24 10:00 12/05/24 09:34 10 MG Spironolactone 25 mg DAILY PO 12/03/24 10:00 12/05/24 09:34 25 MG Losartan Potassium 50 mg DAILY PO 12/03/24 10:00 12/05/24 09:34 50 MG Atorvastatin Calcium 40 mg HS PO 12/03/24 22:00 12/04/24 21:44 40 MG Docusate Sodium 200 mg BIDPRN PRN PO 12/05/24 14:30 UNV objective GENERAL: Alert and oriented x 3. No acute distress. Obese. EYES: PERRL, EOMI. Anicteric. HENT: Moist mucous membranes. LUNGS: Clear to auscultation bilaterally. CARDIOVASCULAR: Regular rate and rhythm. ABDOMEN: Soft, non-tender and non-distended. EXTREMITIES: No edema. NEUROLOGIC: No focal neurological deficits. SKIN: Warm, dry. laboratory and microbiology Laboratory Tests 12/03/24 05:52 Test 12/03/24 05:52 Range/Units Serum Glucose 154 H 74-106 mg/dL Problem List Chest pain, rule out coronary ischemia. Chronic compensated HFrEF, NYHA class II. Hypertensive urgency. Prolonged QTc interval. Rule out renal artery stenosis. Dyslipidemia. Hypokalemia. Type 2 diabetes mellitus. History of methamphetamine use. Obesity. Assessment/Plan Continued all current supportive medical care. Morphine and Tylenol for pain management. Coreg, Clonidine, Losartan. IV antibiotics as ordered. IV Hydralazine for SBP >150. Nitro SL. Additional plan as per the hospital course. Plan discussed with: Patient BROOK ROBLERO MD Dec 05, 2024 14:57
--- NOTE | 2024-12-09 08:53 | DVHSR ---
APPROVED REPORT Exam: Nuclear Stress Test Indication: Chest pain BMI: 0 Stress Test Details Stress Test: Pharmacologic stress testing performed using 0.4 mg of regadenoson per 5 mL given IV ov er 10 seconds. HR Resting HR: 104 bpmMax Heart Rate (APMHR): 171.438145 bpm Max HR Achieved: 118 bpmTarget HR (85% APMHR): 145.349724 bpm % of APMHR: 69.01 Recovery HR: 105 bpm BP Resting BP: 126/89 mmHg Recovery BP: 120/72 mmHg ECG Resting ECG: Sinus Tachycardia Clinical Reason for Termination: Completed protocol Nurse Comments Recieved pt. from [facility]. A/Ox4 on RA. Connected to color television console monitor, VS stable. Rt IV flushes well. Reviewed POC. Pt. verbalized understanding of procedure including risks and side effects, agrees for stress testing. Lexiscan stress test performed per protocol. [facility] tech administered Cardiolite. Pt. tolerated well . Pt. stable, no change on exam. VS returned to baseline. Transferred to [facility] via wheelchair w/ te ch. Stress ECG Conclusion lvef 17% dilated LV end stage cardiomyopathy inferiolateral wall infarct NM EXAM: Myocardial Perfusion REST/STRESS Imaging Protocol: Rest Tc-99m/Stress Tc-99m 2 days Resting Data Rest SPECT myocardial perfusion imaging was performed in supine position 60 minutes following the int ravenous injection of 11.2 mCi of Tc-99m Sestamibi. Time of rest injection: 12:45 Date: 12/03/2024 Time of rest imagin:45 Date: 12/03/2024 Administration Route: IV Administration Site: Right Arm Pharmacologic Stress Pharmacologic stress test was performed by injecting Regadenoson 0.4 mg IV push followed by the intra venous injection of 24.5 mCi of Tc-99m Sestamibi. Time of stress injection: 08:15 Date: 12/04/2024 Time of stress imagin:15 Date: 12/04/2024 Administration Route: IV Administration Site: Left Arm Gated Stress SPECT was performed 60 minutes after stress injection. The images were gated to evaluate regional wall motion and calculate left ventricular ejection fracti on. Stress only was performed in the Supine position. Nuclear Conclusion Nuclear Findings: negative for ischemia lvef 17% dilated LV end stage cardiomyopathy inferiolateral wall infarct
== END 2024-12-05 20:07 | disposition home or self-care (01) | DRG 199 ==
LOC: ER 21:14 → OVERFLOW 12-02 04:19 → TELE-WESTW 12-02 21:44 → TELE-CENTR 12-05 05:50
PROVIDERS: ADMIT Internal Medicine; ATTEND Internal Medicine
DX: I16.0 Hypertensive urgency (principal); I50.23 Acute on chronic systolic (congestive) heart failure; I11.0 Hypertensive heart disease with heart failure; I16.1 Hypertensive emergency; E11.65 Type 2 diabetes mellitus with hyperglycemia; E87.6 Hypokalemia; E78.5 Hyperlipidemia, unspecified; F15.90 Other stimulant use, unspecified, uncomplicated; E66.811 Obesity, class 1; E66.01 Morbid (severe) obesity due to excess calories; F51.04 Psychophysiologic insomnia; I25.10 Atherosclerotic heart disease of native coronary artery without angina pectoris; K52.9 Noninfective gastroenteritis and colitis, unspecified; F11.20 Opioid dependence, uncomplicated; G89.29 Other chronic pain; Z79.899 Other long term (current) drug therapy; Z80.7 Family history of other malignant neoplasms of lymphoid, hematopoietic and related tissues
CPT/HCPCS: 36415; 71045; 74177; 78452; 80053; 80061; 80307; 81001; 82962; 83605; 83735; 83880; 84439; 84443; 84481; 84484; 85025; 85379; 93005; 93017; 93306; 93975; 96374; 96375; G0378; J1815; J1885; J2405; J3480; J3490; Q0162

== ENCOUNTER 2024-12-13 19:41 | Inpatient (IN) | payer MEDICAID ==
[~2024-12-13] VITALS: Ht 170.2 cm; Wt 99.0 kg
[~2024-12-13 19:41] MED LIST changes: +ATOR-507 PO; -CARV12.544 PO; +CARV25TA55 PO; +EMPA1TAB PO; +HYDR-4902 PO; -NIFE1TAB31 PO; -NIFE1TAB36 PO; +OMEP20TA PO; +SPIR50TA5 PO; -TRAM50TA2 PO
--- NOTE | 2024-12-13 20:23 | ED.PDOC ---
HPI Comments 49-year-old male who came to ER for chest pains. Patient was discharged here December 05, diagnosed with 1. Acute on chronic congestive heart failure exacerbation with systolic, 2. Chest pain rule out VT, 3. Abdominal pain with some abdominal distention to the left side, 4. Cardiomyopathy, 5. Diabetes mellitus type 2 , 6. Illicit drug use/methamphetamine use , 7. Morbid obesity class I, 8. Chronic insomnia. Patient has been experiencing midsternal chest pain since yesterday, went to urgent care but noted that his blood pressure was elevated so he was sent to the ER. Upon arrival, blood pressure was 229/151 mmHg Chief Complaint: Chest Pain Time Seen by MD: 20:23 Primary Care Provider: ? Reviewed Notes: Nurses Notes Allergies: Coded Allergies: No Known Drug Allergy (Verified Allergy, Unknown, 12/24/23) Home Meds Active Scripts Hydrocodone-Acetaminophen (Hydrocodone Bitartrate/AC 5-325 mg) 1 Tab Tab, 1 TAB PO Q8HP PRN, #14 TAB Prov:GENIE MELENDEZ MD 12/05/24 Carvedilol (Carvedilol) 25 Mg Tab, 1 TAB PO BID, #60 TAB 5 Refills Prov:GENIE MELENDEZ MD 12/05/24 Empagliflozin (Jardiance) 10 Mg Tab, 10 MG PO DAILY, #30 TAB Prov:GENIE MELENDEZ MD 12/05/24 Trazodone Hcl (Trazodone Hcl) 50 Mg Tab, 1 TAB PO QHSP PRN for PSYCHOPHYSIOLOGIC INSOMNIA for 14 Days, #14 TAB Prov:GENIE MELENDEZ MD 12/05/24 Lisinopril (Lisinopril) 40 Mg Tab, 1 TAB PO DAILY, #30 TAB 1 Refill Prov:CAROLINA OVALLE MD 08/23/24 Duloxetine Hcl (Cymbalta) 20 Mg Cap, 1 CAP PO DAILY for 30 Days, #30 CAP Prov:ALE HARRIS RESIDENT 08/15/24 Insulin Glargine (Lantus) 100 Unit/Ml Inj, 35 UNITS SC BID@1000,2200 for 30 Days, #1 INJ Prov:CORRINE GRAHAM RESIDENT 12/28/23 Reported Medications Omeprazole (Gnp Omeprazole) 20 Mg Tab, 1 TAB PO DAILY, #90 TAB 1 Refill 12/02/24 Spironolactone (Spironolactone) 50 Mg Tab, 1 TAB PO DAILY, #30 TAB 5 Refills 12/02/24 Atorvastatin Calcium (Lipitor) 40 Mg Tab, 1 TAB PO DAILY, #30 TAB 5 Refills 12/02/24 Sildenafil Citrate (Sildenafil Citrate) 20 Mg Tab, 1 TAB PO DAILY for 30 Days, #30 09/24/24 Sucralfate (CARAFATE SUSP) 1 Gm/10 Ml Ss, 10 ML PO BID for 30 Days, #600 09/24/24 Senna (Senna-Time) 8.6 Mg Tab, 2 TAB PO DAILY for 30 Days, #60 09/24/24 Tirzepatide (Mounjaro) 7.5 Mg/0.5 Ml Inj, 7.5 MG SUBCUT QWEEKLY for 28 Days, #2 09/24/24 Ergocalciferol (Vitamin D) 50,000 Unit Cap, 1 CAP PO QWEEKLY for 28 Days, #4 09/24/24 Gabapentin (Gabapentin) 300 Mg Cap, 3 CAP PO TID for 30 Days, #270 09/24/24 Metoclopramide HCl (Metoclopramide Hydrochlor) 10 Mg Tab, 1 TAB PO TID for 30 Days, #90 09/24/24 Pantoprazole Sodium Sesquihydr (Pantoprazole Sodium) 40 Mg Tab, 1 TAB PO BID for 30 Days, #60 09/24/24 Polyethylene Glycol 3350 (Gnp Clearlax) 17 Gm/Scoop Pow, 17 GM PO DAILY for 30 Days, #510 09/24/24 Clonidine Hydrochloride (Clonidine Hcl) 0.1 Mg Tab, 1 TAB PO BIDPRN for 30 Days, #60 09/24/24 Insulin Lispro (Humalog Kwikpen) 100 Unit/Ml Inj, 25 UNITS SC AC for 40 Days, #30 08/14/24 Furosemide (Furosemide) 20 Mg Tab, 1 TAB PO BID for 90 Days, #180 08/14/24 Hydroxyzine Hcl (Hydroxyzine Hcl) 25 Mg Tab, 1 TAB PO DAILY for 30 Days, #30 08/14/24 Linaclotide Base (LINZESS) 145 Mcg Cap, 1 CAP PO DAILY for 30 Days, #30 08/14/24 Nitroglycerin (NTROSTAT SUBLINGUAL) 0.4 Mg Sl, 0.4 MG SL PRN, TAB *MAY REPEAT EVERY 5 MINUTES X 3 TOTAL IF NO RELIEF, INITIATE ANALGESIC THERAPY. NOTIFY PHYSICIAN *Do not crush. 12/25/23 Information Source: Patient Mode of Arrival: Ambulatory Severity: Moderate Timing: Hours Duration: Intermittent Location: Substernal Radiation: No Radiation Quality: Pressure Onset: With Light Exertion Cardiac Risk Factors: HTN, Diabetes History of: Similar pain in past Associated Signs and Symptoms: SOB, Diaphoresis Past Medical History PAST MEDICAL HISTORY: CAD, CHF, DM, High Lipids, HTN Surgical History: Denies all surgeries Family History Family History: Reviewed,noncontributory to illness Social History Smoker: Non-Smoker Alcohol: Denies ETOH Use Drugs: Denies Drug Use Lives In: Home Constitutional: denies: chills, diaphoresis, fatigue, fever, malaise, sweats, weakness, others EENTM: denies: blurred vision, double vision, ear bleeding, ear discharge, ear drainage, ear pain, ear ringing, eye pain, eye redness, hearing loss, mouth pain, mouth swelling, nasal discharge, nose bleeding, nose congestion, nose pain, photophobia, tearing, throat pain, throat swelling, voice changes, others Respiratory: reports: shortness of breath, SOB with excertion; denies: cough, hemoptysis, orthopnea, SOB at rest, stridor, wheezing, others Cardiovascular: reports: chest pain; denies: dizzy spells, diaphoresis, Dyspnea on exertion, edema, irregular heart beat, left arm pain, lightheadedness, palpitations, PND, syncope, others Gastrointestinal: denies: abdomen distended, abdominal pain, blood streaked bowels, constipated, diarrhea, dysphagia, difficulty swallowing, hematemesis, melena, nausea, poor appetite, poor fluid intake, rectal bleeding, rectal pain, vomiting, others Genitourinary: denies: burning, dysuria, flank pain, frequency, hematuria, incontinence, penile discharge, penile sore, pain, testicle pain, testicle swelling, urgency, others Neurological: denies: dizziness, fainting, headache, left sided numbness, left sided weakness, numbness, paresthesia, pre-existing deficit, right sided numbness, right sided weakness, seizure, speech problems, tingling, tremors, weakness, others Musculoskeletal: denies: back pain, gout, joint pain, joint swelling, muscle pain, muscle stiffness, neck pain, others Integumetry: denies: bruises, change in color, change in hair/nails, dryness, laceration, lesions, lumps, rash, wounds, others Allergic/Immunocompromised: denies: Difficulty Healing, Frequent Infections, Hives, Itching, others Hematologic/Lymphatic: denies: anemia, blood clots, easy bleeding, easy bruising, swollen glands, others Endocrine: denies: excessive hunger, excessive sweating, excessive thirst, excessive urination, flushing, intolerance to cold, intolerance to heat, unexplained weight gain, unexplained weight loss, others Psychiatric: denies: anxiety, bipolar disorder, depression, hopeless, panic disorder, schizophrenia, sleepless, suicidal, others Physical Exam General Appearance: No Apparent Distress, Normal HEENT: Normal ENT Inspection, Pharynx Normal, TMs Normal Neck: Full Range of Motion, Non-Tender, Normal, Normal Inspection Respiratory: Chest Non-Tender, Lungs Clear, No Accessory Muscle Use, No Respiratory Distress, Normal Breath Sounds Cardiovascular: No Edema, No JVD, No Murmur, No Gallop, Normal Peripheral Pulses, Tachycardia Breast Exam: Deferred Gastrointestinal: No Organomegaly, Non Tender, No Pulsatile Mass, Normal Bowel Sounds, Soft Genitalia: Deferred Pelvic: Deferred Rectal: Deferred Extremities: No calf tenderness, Normal capillary refill, Normal inspection, Normal range of motion, Non-tender, No pedal edema Musculoskeletal : Apperance: Normal Neurologic: Alert, health worker II-XII nml as Tested, No Motor Deficits, Normal Affect, Normal Mood, No Sensory Deficits Cerebellar Function: Normal Reflexes: Normal Skin: Dry, Normal Color, Warm Lymphatic: No Adenopathy EKG EKG : Pulse Rate (adult): 116 Cardiac Rhythm: ST Hypertrophy: LAE Was a procedure done? Was a procedure done?: No CP Differential Dx Differential Diagnosis: Angina, Anxiety / Panic Attack Differential Diagnosis: CHF, HTN Essential, HTN Accelerated Differential Diagnosis: Angina, Chest Wall Pain, Costochondritis, Esophageal reflux/spasm, Gastritis, Myocardial Infarction X-Ray, Labs, Meds, VS Vital Signs Date Time Temp Pulse Resp B/P (MAP) Pulse Ox O2 Delivery O2 Flow Rate FiO2 12/13/24 21:21 113 20 208/134 12/13/24 20:57 113 208/134 12/13/24 20:54 98.3 120 26 229/151 99 98.3 12/13/24 20:23 116 12/13/24 20:21 Room Air* 0 21 12/13/24 20:21 98.1 113 20 208/134 (158) 97 98.1 Lab Test 12/13/24 20:51 12/13/24 20:08 Range/Units Troponin I High Sensitivity 7 10 </=54 ng/L White Blood Count 7.0 4.4-10.8 10^3/uL Red Blood Count 4.45 L 4.5-5.90 10^6/uL Hemoglobin 14.0 13.5-17.5 g/dL Hematocrit 39.0 L 41.0-53.0 % Mean Corpuscular Volume 87.6 80.0-100.0 fL Mean Corpuscular Hemoglobin 31.5 28.0-32.0 pg Mean Corpuscular Hemoglobin Concent 35.9 32.0-36.0 g/dL Red Cell Distribution Width 14.3 11.8-14.3 % Platelet Count 280 140-450 10^3/uL Mean Platelet Volume 8.3 6.9-10.8 fL Neutrophils (%) (Auto) 56.8 37.0-80.0 % Lymphocytes (%) (Auto) 27.7 10.0-50.0 % Monocytes (%) (Auto) 11.2 0.0-12.0 % Eosinophils (%) (Auto) 3.5 0.0-7.0 % Basophils (%) (Auto) 0.8 0.0-2.0 % Neutrophils # (Auto) 4.0 1.6-8.6 10 ^3/uL Lymphocytes # (Auto) 2.0 0.4-5.4 10 ^3/uL Monocytes # (Auto) 0.8 0-1.3 10 ^3/uL Eosinophils # (Auto) 0.2 0-0.8 10 ^3/uL Basophils # (Auto) 0.1 0-0.2 10 ^3/uL Nucleated Red Blood Cells 0.0 % D-Dimer, Quantitative 0.38 0.0-0.49 mg/L FEU Sodium Level 140 136-145 mmol/L Potassium Level 3.4 L 3.5-5.1 mmol/L Chloride Level 104 98-107 mmol/L Carbon Dioxide Level 24 20-31 mmol/L Anion Gap 12 5-15 Blood Urea Nitrogen 9 9-23 mg/dL Creatinine 0.93 0.700-1.30 mg/dL Glomerular Filtration Rate Calc 101 >90 mL/min BUN/Creatinine Ratio 9.7 L 10.0-20.0 Serum Glucose 300 H 74-106 mg/dL Calcium Level 8.8 8.7-10.4 mg/dL Magnesium Level 1.6 1.6-2.6 mg/dL Total Bilirubin 0.4 0.2-1.0 mg/dL Aspartate Amino Transferase (AST) 25 13-40 U/L Alanine Aminotransferase (ALT) 33 7-40 U/L Alkaline Phosphatase 98 46-116 U/L Total Protein 6.8 5.7-8.2 g/dL Albumin 4.0 3.2-4.8 g/dL Thyroid Stimulating Hormone (TSH) 4.42 0.55-4.78 uIU/mL Free Thyroxine (T4) Calculated 1.04 0.89-1.76 ng/dL Current Medications Medications (Trade) Dose Ordered Sig/Jorge Route Start Time Stop Time Status Last Admin Acetaminophen/ Hydrocodone Bitart ([place] 10/325MG Tab) 1 tab ONCE ONCE PO 12/13/24 20:15 12/13/24 20:16 DC 12/13/24 20:57 Ondansetron HCl (Zofran Po) 4 mg ONCE ONCE PO 12/13/24 20:15 12/13/24 20:16 DC 12/13/24 20:58 Metoprolol Tartrate (Lopressor Tablet) 50 mg ONCE ONCE PO 12/13/24 20:15 12/13/24 20:16 DC 12/13/24 20:57 Hydromorphone HCl (Dilaudid Injection) 0.5 mg ONCE ONCE IV 12/13/24 21:15 12/13/24 21:16 DC 12/13/24 21:21 Time of 1ST Reevaluation: 20:17 Reevaluation 1ST: Unchanged Patient Education/Counseling: Diagnosis, Treatment Family Education/Counseling: No Family Present SEPSIS Sepsis Screen Physician Orders Electrocardigram (12/13/24 19:47) Electrocardigram (12/13/24 20:47) Electrocardigram (12/13/24 22:47) Chest Xray 1 View (12/13/24 23:14) B-Type Natriuretic Peptide (12/13/24 23:14) Drug Screen (12/13/24 23:14) Aspirin Tablet (12/13/24 23:30) Hydralazine Injection (Apresoline Inject (12/13/24 23:30) Vital Signs Date Time Temp Pulse Resp B/P (MAP) Pulse Ox O2 Delivery O2 Flow Rate FiO2 12/13/24 21:21 113 20 208/134 12/13/24 20:57 113 208/134 12/13/24 20:54 98.3 120 26 229/151 99 98.3 12/13/24 20:23 116 12/13/24 20:21 Room Air* 0 21 12/13/24 20:21 98.1 113 20 208/134 (158) 97 98.1 Laboratory Tests Test 12/13/24 20:08 White Blood Count 7.0 10^3/uL (4.4-10.8) Medications Medications Dose Ordered Sig/Jorge Route Start Time Stop Time Status Last Admin Dose Admin Acetaminophen/ Hydrocodone Bitart 1 tab ONCE ONCE PO 12/13/24 20:15 12/13/24 20:16 DC 12/13/24 20:57 Hydromorphone HCl 0.5 mg ONCE ONCE IV 12/13/24 21:15 12/13/24 21:16 DC 12/13/24 21:21 Metoprolol Tartrate 50 mg ONCE ONCE PO 12/13/24 20:15 12/13/24 20:16 DC 12/13/24 20:57 Ondansetron HCl 4 mg ONCE ONCE PO 12/13/24 20:15 12/13/24 20:16 DC 12/13/24 20:58 Departure 1 Departure Time of Disposition: 23:45 Impression: Primary Impression: Acute coronary syndrome Additional Impressions: Hypertensive urgency Uncontrolled type 2 diabetes mellitus with hyperglycemia Disposition: 09 ADMITTED INPATIENT Admit to: Tele Condition: Guarded Discharged With: Self Comments 49 year old male with h/o DM and HTN now with hypertensive urgency, uncontrolled DM with hyperglycemia, and chest pain consistent with acute coronary syndrome. Patient was given aspirin, hydralazine, metoprolol, and insulin Critical Care Note Critical Care Time?: Yes (35 min-critical care time only) Critical care comment: Hypertensive urgency, chest pain Stability Stability form required: No Heart Score Heart Score: Heart Score Response (Comments) Value History Moderate Suspicious 1 EKG Repolarization Disturb 1 Age 45-64 1 Risk Factors >3 or Hx ASHD 2 Troponin Normal limit 0 Total 5 I personally scribed for ZULEYKA MENDES MD ([email or web address]) on 12/13/24 at 20:23. Electronically submitted by Solis Stephens ([email or web address]). ZULEYKA MENDES MD Dec 13, 2024 20:23
[2024-12-13 20:37] LABS: Hematocrit 39.0 % (41.0-53.0); Hemoglobin 14.0 g/dL (13.5-17.5); Mean Corpuscular Hemoglobin 31.5 pg (28.0-32.0); Mean Corpuscular Volume 87.6 fL (80.0-100.0); Nucleated Red Blood Cells % 0.0 %
[2024-12-13 20:49] LABS: Alanine Aminotransferase 33 U/L (7-40); Albumin 4.0 g/dL (3.2-4.8); Alkaline Phosphatase 98 U/L (46-116); Anion Gap 12 (5-15); BUN/Creatinine Ratio 9.7 (10.0-20.0); Blood Urea Nitrogen 9 mg/dL (9-23); Calcium 8.8 mg/dL (8.7-10.4); Carbon Dioxide 24 mmol/L (20-31); Chloride 104 mmol/L (98-107); Sodium 140 mmol/L (136-145); Total Protein 6.8 g/dL (5.7-8.2)
[2024-12-13 20:50] LABS: Bilirubin, Total 0.4 mg/dL (0.2-1.0)
[2024-12-13 20:54] LABS: Glucose 300 mg/dL (74-106); Magnesium 1.6 mg/dL (1.6-2.6); Potassium 3.4 mmol/L (3.5-5.1)
[2024-12-13] MEDS: HYDROcodone-ACET 10/325MG TAB PO ONE (20:57)
[2024-12-13] MEDS: METOPROLOL TARTRATE 50 MG TAB PO ONE (20:57)
[2024-12-13] MEDS: ONDANSETRON ODT 4 MG TAB PO ONE (20:58)
[2024-12-13] MEDS: HYDROmorphone HCL 2 MG/ML VL/or syr IV ONE (21:21)
--- NOTE | 2024-12-13 23:43 | DVH ---
CHEST RADIOGRAPH Indication: chest pain Technique: Single frontal view of the chest was obtained COMPARISON: XY CHEST PORTABLE on DOS: 12/01/24, XY CHEST XRAY 1 VIEW on DOS: 11/23/24, XY CHEST XRAY 1 VIEW on DOS: 09/23/24, XY CHEST PORTABLE on DOS: 09/01/24, XY CHEST PORTABLE on DOS: 08/30/24 FINDINGS: Lungs and pleural spaces are clear. Cardiac silhouette and leila are within normal limits. Bones and s oft tissues demonstrate no significant abnormality. IMPRESSION: No acute disease.
[2024-12-14] MEDS: hydrALAZINE HCL 20 MG/ML VL IV ONE (00:03)
[2024-12-14] MEDS: HYDROmorphone HCL 2 MG/ML VL/or syr IV ONE ×2 (00:37→00:54)
[2024-12-14] MEDS: InsuLIN REG 1unit/0.01ml Soln (100units/ml) SC ONE ×2 (01:16→02:02)
[2024-12-14] MEDS ORDERED: DEXTROSE (50%) 50ML SYRG IV PRN (01:45)
[2024-12-14] MEDS ORDERED: CYCLOBENZAPRINE HCL 10 MG TAB PO PRN (01:45)
[2024-12-14] MEDS: SUCRALFATE 1 GM/10 ML ORAL SUSP GT ONE (01:45)
[2024-12-14] MEDS: ENOXAPARIN SOD 40 MG/0.4 ML SYRINGE SC SCH (01:45)
[2024-12-14] MEDS: CYCLOBENZAPRINE HCL 10 MG TAB PO ONE (01:45)
[2024-12-14] MEDS: DEXTROSE (50%) 50ML SYRG IV ONE (02:01)
[2024-12-14] MEDS: ACCU-CHEK COMFORT CURVE STRIP VI ONE (02:04)
--- NOTE | 2024-12-14 02:05 | DVHHPRES ---
History of Present Illness Resident Creating Document: FERN LOPEZ RESIDENT History of Present Illness This is a 49-year-old male with past medical history of HFrEF with ejection fraction 30-35%, diabetes mellitus type 2, hyperlipidemia, hypertension, drug- seeking behavior, presented to the ER with chief complain of generalized abdominal pain. He complains of left flank pain and swelling, described pain as burning, 7/10, radiating to whole abdomen. Pain was associated with nausea. He reports being noncompliant on his medications. He was admitted in the hospital twice for similar complaints within the last 1 month. Previous hospitalization: Twice in 1 month for hypertensive crisis PMHx: Chronic systolic congestive heart failure, diabetes mellitus type 2, hyperlipidemia, hypertension, depression, H pylori on antibiotic therapy Family history: Heart failure (multiple relatives on mother side of family) Social history: Denies smoking, alcohol, recreational drug use. Lives in house with family. Full code. Next to kin: [facility] medication: Tetracycline, cyclobenzaprine, omeprazole, lidocaine patch, trazodone, metronidazole, Jardiance, insulin, atorvastatin, clonidine, spironolactone, carvedilol, [place] Allergic history: No allergy history Patient was examined at bedside today. Review of Systems Review of Systems ROS: Constitutional: Denies weight loss, fever and chills. HEENT: Denies changes in vision and hearing. Respiratory: Denies shortness of breath and cough Cardiovascular: Denies chest discomfort or palpitations GI: Generalized abdominal pain, nausea. : Denies dysuria and urinary frequency. Musculoskeletal: Denies myalgias and joint pain Skin: Denies rash and pruritus. Neurological: Denies dizziness, headache, vision or hearing problems Allergies: Coded Allergies: No Known Drug Allergy (Verified Allergy, Unknown, 12/24/23) Exam Vital Signs Vital Signs Date Time Temp Pulse Resp B/P (MAP) Pulse Ox O2 Delivery O2 Flow Rate FiO2 12/14/24 00:54 107 18 197/108 12/13/24 23:30 94 12/13/24 20:54 98.3 98.3 12/13/24 20:21 Room Air* 0 21 Exam General: Patient alert and oriented in person, place and time. Patient following commands. HEENT: Normocephalic, atraumatic, moist mucous membranes Respiratory/pulmonary: Clear lungs bilaterally, vesicular murmurs present in almost all lung warren, no associated crackles or wheezes. Cardiovascular: Normal heart sounds S1 and S2 with no associated murmurs Abdomen: Generalized tenderness in abdomen, localized tenderness in left flank area with swelling, not increasing in size compared to previous examination. No signs of local inflammation seen. Extremities: There is no peripheral edema present at the lower extremities. Peripheral Pulses: 3+ Radial (R). 3+ Radial (L). 3+ Dorsalis pedis (R). 3+ Dorsalis pedis(L) Skin: No rashes or pruritus, there is no sacral edema present at this time. Neurological: Intact cranial nerves with no focal neurologic deficits Labs/Xrays Labs Test 12/13/24 20:51 12/13/24 20:08 Range/Units Troponin I High Sensitivity 7 </=54 ng/L White Blood Count 7.0 4.4-10.8 10^3/uL Red Blood Count 4.45 L 4.5-5.90 10^6/uL Hemoglobin 14.0 13.5-17.5 g/dL Hematocrit 39.0 L 41.0-53.0 % Mean Corpuscular Volume 87.6 80.0-100.0 fL Mean Corpuscular Hemoglobin 31.5 28.0-32.0 pg Mean Corpuscular Hemoglobin Concent 35.9 32.0-36.0 g/dL Red Cell Distribution Width 14.3 11.8-14.3 % Platelet Count 280 140-450 10^3/uL Mean Platelet Volume 8.3 6.9-10.8 fL Neutrophils (%) (Auto) 56.8 37.0-80.0 % Lymphocytes (%) (Auto) 27.7 10.0-50.0 % Monocytes (%) (Auto) 11.2 0.0-12.0 % Eosinophils (%) (Auto) 3.5 0.0-7.0 % Basophils (%) (Auto) 0.8 0.0-2.0 % Neutrophils # (Auto) 4.0 1.6-8.6 10 ^3/uL Lymphocytes # (Auto) 2.0 0.4-5.4 10 ^3/uL Monocytes # (Auto) 0.8 0-1.3 10 ^3/uL Eosinophils # (Auto) 0.2 0-0.8 10 ^3/uL Basophils # (Auto) 0.1 0-0.2 10 ^3/uL Nucleated Red Blood Cells 0.0 % D-Dimer, Quantitative 0.38 0.0-0.49 mg/L FEU Sodium Level 140 136-145 mmol/L Potassium Level 3.4 L 3.5-5.1 mmol/L Chloride Level 104 98-107 mmol/L Carbon Dioxide Level 24 20-31 mmol/L Anion Gap 12 5-15 Blood Urea Nitrogen 9 9-23 mg/dL Creatinine 0.93 0.700-1.30 mg/dL Glomerular Filtration Rate Calc 101 >90 mL/min BUN/Creatinine Ratio 9.7 L 10.0-20.0 Serum Glucose 300 H 74-106 mg/dL Calcium Level 8.8 8.7-10.4 mg/dL Magnesium Level 1.6 1.6-2.6 mg/dL Total Bilirubin 0.4 0.2-1.0 mg/dL Aspartate Amino Transferase (AST) 25 13-40 U/L Alanine Aminotransferase (ALT) 33 7-40 U/L Alkaline Phosphatase 98 46-116 U/L B-Type Natriuretic Peptide 104.66 0-100 pg/mL Total Protein 6.8 5.7-8.2 g/dL Albumin 4.0 3.2-4.8 g/dL Thyroid Stimulating Hormone (TSH) 4.42 0.55-4.78 uIU/mL Free Thyroxine (T4) Calculated 1.04 0.89-1.76 ng/dL SEPSIS Sepsis Screen Date sepsis recognized/suspect: Dec 13, 2024 Time Sepsis recognized/suspect: 1944 Recent Procedure: No On Antibiotic Therapy: No Respiratory Rate >20: No Heart Rate >90: No Temp<36 C (96.8 F) or >38.3 C: No SBP <90 or MAP <65 mmHG: No New Acute Mental Status Change: No Is the patient on CPAP, BIPAP,: No Physician Orders Electrocardigram (12/13/24 19:47) Electrocardigram (12/13/24 20:47) Electrocardigram (12/13/24 22:47) Chest Xray 1 View (12/13/24 23:14) Drug Screen (12/13/24 23:14) Admit (12/14/24 01:35) Code Status (12/14/24 01:35) Condition: Serious (12/14/24:35) Acetaminophen Tablet (Tylenol Tablet) (12/14/24 01:45) Lovenox 40mg (12/14/24 01:45) Oxygen By Nasal Cannula (12/14/24:35) Stat Ekg For Chest Pain (12/14/24:35) Notify Md Of Changes From Base (12/14/24:35) School Psychologist For 24 Hours (12/14/24:35) Emergency Dysrhythmia Protocol (12/14/24:35) Rhythm Strips Once Every Shift (12/14/24:35) Cyclobenzaprine Tablet (Flexeril Tablet) (12/14/24 01:45) Cyclobenzaprine Tablet (Flexeril Tablet) (12/14/24 01:45) Pantoprazole (Protonix) (12/14/24 10:00) Pantoprazole (Protonix) (12/14/24 01:45) Lidocaine 5% Topical Patch (Lidoderm 5% (12/14/24 10:00) Trazodone Hcl (Desyrel) (12/14/24 01:45) Atorvastatin (Lipitor) (12/14/24 22:00) Clonidine Hcl Tablet (Catapres Tablet) (12/14/24 10:00) Clonidine Hcl Tablet (Catapres Tablet) (12/14/24 01:45) Carvedilol Tablet (Coreg Tablet) (12/14/24 10:00) Carvedilol Tablet (Coreg Tablet) (12/14/24 01:45) Spironolactone (Aldactone) (12/14/24 10:00) Spironolactone (Aldactone) (12/14/24 01:45) Sucralfate Susp (Carafate Susp) (12/14/24 06:00) Sucralfate Susp (Carafate Susp) (12/14/24 01:45) Clear Liq Diet (12/14/24 Breakfast) Renin Activity And Aldosterone (12/14/24 01:35) Aldosterone (12/14/24 01:35) Cortisol Am (12/14/24 01:35) Metanephrines Frac Free Plasma (12/14/24 01:35) Potassium Er Tablet (Klor-Con Tablet) (12/14/24 01:45) Complete Blood Count (12/14/24 04:00) Basic Metabolic Panel (12/14/24 04:00) Glucose Blood (Accu-Chek Comfort Curve T (12/14/24 07:00) Mild Sliding Scale (12/14/24 07:00) Dextrose 50% Syringe (12/14/24 01:45) Glucose Blood (Accu-Chek Comfort Curve T (12/14/24 01:45) Mild Insulin Ss Achs (12/14/24 01:45) Dextrose 50% Syringe (12/14/24 01:45) Vital Signs Date Time Temp Pulse Resp B/P (MAP) Pulse Ox O2 Delivery O2 Flow Rate FiO2 12/14/24 00:54 107 18 197/108 12/14/24 00:03 203/122 12/13/24 23:30 104 21 178/133 (148) 94 12/13/24 23:00 104 21 189/129 (149) 94 12/13/24 22:53 102 12/13/24 22:00 109 20 187/139 (155) 96 12/13/24 21:57 109 187/129 12/13/24 21:51 109 20 187/139 12/13/24 21:21 113 20 208/134 12/13/24 20:57 113 208/134 12/13/24 20:54 98.3 120 26 229/151 99 98.3 12/13/24 20:41 115 12/13/24 20:23 116 12/13/24 20:21 Room Air* 0 21 12/13/24 20:21 98.1 113 20 208/134 (158) 97 98.1 Laboratory Tests Test 12/13/24 20:08 White Blood Count 7.0 10^3/uL (4.4-10.8) Medications Medications Dose Ordered Sig/Jorge Route Start Time Stop Time Status Last Admin Dose Admin Acetaminophen/ Hydrocodone Bitart 1 tab ONCE ONCE PO 12/13/24 20:15 12/13/24 20:16 DC 12/13/24 20:57 1 TAB Aspirin 162 mg ONCE ONCE PO 12/13/24 23:30 12/13/24 23:31 DC 12/14/24 00:03 162 MG Hydralazine HCl 20 mg ONCE ONCE IV 12/13/24 23:30 12/13/24 23:31 DC 12/14/24 00:03 20 MG Hydromorphone HCl 0.5 mg ONCE ONCE IV 12/13/24 21:15 12/13/24 21:16 DC 12/13/24 21:21 0.5 MG Hydromorphone HCl 1 mg ONCE ONCE IV 12/14/24 00:45 12/14/24 00:46 DC 12/14/24 00:54 1 MG Insulin Human Regular 2 units ONCE ONCE SC 12/14/24 01:15 12/14/24 01:16 DC 12/14/24 01:16 2 UNITS Metoprolol Tartrate 50 mg ONCE ONCE PO 12/13/24 20:15 12/13/24 20:16 DC 12/13/24 20:57 50 MG Ondansetron HCl 4 mg ONCE ONCE PO 12/13/24 20:15 12/13/24 20:16 DC 12/13/24 20:58 4 MG Assessment/Plan Assessment/Plan Hypertensive urgency No evidence of end-organ damage Clonidine 0.1 mg daily, carvedilol 25 mg b.i.d., Entresto 1 tab PO bid, spironolactone 25 mg PO daily Monitor on telemetry Chest pain, Ruled out ACS Troponin WNL EKG shows sinus rhythm with borderline prolonged HI interval HFrEF with ejection fraction 30-35%, without exacerbation Continue GDM T with carvedilol, spironolactone, Jardiance, Entresto BNP 104 Echocardiogram from 12/04/2024 shows moderately dilated LVEF 32% History of dyslipidemia Continue atorvastatin 40 mg daily H pylori infection Acute gastritis, possible On metronidazole and azithromycin, and pantoprazole Sucralfate p.o., clear liquid diet Insulin-dependent type 2 diabetes mellitus Sliding scale insulin A1c 6.4 in October 2024 Monitor blood glucose Diabetes education Diabetic diet Chronic ileus, likely CT abdomen shows ileus, findings similar to previous admission, no change from baseline. Obesity class 1 with BMI 34.2 Counseled on lifestyle and diet Monitor for JOSÉ LUIS complication, consider CPAP if needed Depression Continue trazodone Chronic constipation Uses at home, ordered lactulose History of poor medical compliance /drug-seeking behavior Patient counseled on bedside to improve medical compliance DIET: Clear liquid DVT PROPHYLAXIS: Lovenox GI PROPHYLAXIS: Protonix CODE STATUS: Goals of care discussed with patient, nurses at bedside for more than 35 minutes. Full code DISPOSITION: Telemetry Patient's status and plan discussed with the patient. Case discussed with Dr. Salguero. Plan discussed with: Patient, Other (Nurses) My Orders Orders - FERN LOPEZ RESIDENT Procedure Category Date Status Time Admit ADMIT 12/14/24 Transmitted 01:35 Code Status CODE 12/14/24 Transmitted 01:35 Condition: Serious JASWANT 12/14/24 Transmitted 01:35 Acetaminophen Tablet PHA 12/14/24 Transmitted (Tylenol Tablet) 01:45 Lovenox 40mg PHA 12/14/24 Transmitted 01:45 Oxygen By Nasal RT 12/14/24 Transmitted Cannula 01:35 Stat Ekg For Chest JASWANT 12/14/24 Transmitted Pain 01:35 Notify Of Changes JASWANT 12/14/24 Transmitted From Base 01:35 School Psychologist For JASWANT 12/14/24 Transmitted 24 Hours 01:35 Emergency Dysrhythmia JASWANT 12/14/24 Transmitted Protocol 01:35 Rhythm Strips Once JASWANT 12/14/24 Transmitted Every Shift 01:35 Cyclobenzaprine PHA 12/14/24 Transmitted Tablet (Flexeril 01:45 Cyclobenzaprine PHA 12/14/24 Transmitted Tablet (Flexeril 01:45 Pantoprazole PHA 12/14/24 Transmitted (Protonix) 10:00 Pantoprazole PHA 12/14/24 Transmitted (Protonix) 01:45 Lidocaine 5% Topical PHA 12/14/24 Transmitted Patch (Lidoderm 5% 10:00 Trazodone Hcl PHA 12/14/24 Transmitted (Desyrel) 01:45 Atorvastatin (Lipitor) PHA 12/14/24 Transmitted 22:00 Clonidine Hcl Tablet PHA 12/14/24 Transmitted (Catapres Tablet) 10:00 Clonidine Hcl Tablet PHA 12/14/24 Transmitted (Catapres Tablet) 01:45 Carvedilol Tablet PHA 12/14/24 Transmitted (Coreg Tablet) 10:00 Carvedilol Tablet PHA 12/14/24 Transmitted (Coreg Tablet) 01:45 Spironolactone PHA 12/14/24 Transmitted (Aldactone) 10:00 Spironolactone PHA 12/14/24 Transmitted (Aldactone) 01:45 Sucralfate Susp PHA 12/14/24 Transmitted (Carafate Susp) 06:00 Sucralfate Susp PHA 12/14/24 Transmitted (Carafate Susp) 01:45 Clear Liq Diet DIET 12/14/24 Transmitted Breakfast Renin Activity And LAB 12/14/24 Transmitted Aldosterone 01:35 Aldosterone LAB 12/14/24 Transmitted 01:35 Cortisol Am LAB 12/14/24 Transmitted 01:35 Metanephrines Frac LAB 12/14/24 Transmitted Free Plasma 01:35 Potassium Er Tablet PHA 12/14/24 Transmitted (Klor-Con Tablet) 01:45 Complete Blood Count LAB 12/14/24 Transmitted 04:00 Basic Metabolic Panel LAB 12/14/24 Transmitted 04:00 Glucose Blood PHA 12/14/24 Transmitted (Accu-Chek Comfort 07:00 Mild Sliding Scale PHA 12/14/24 Transmitted 07:00 Dextrose 50% Syringe PHA 12/14/24 Transmitted 01:45 Glucose Blood PHA 12/14/24 Transmitted (Accu-Chek Comfort 01:45 Mild Insulin Ss Achs PHA 12/14/24 Transmitted 01:45 Dextrose 50% Syringe PHA 12/14/24 Transmitted 01:45 Date of Service: Dec 14, 2024 Billing Provider: GISSELLE SALGUERO MD Common Visit Codes: 41100-[id number] INP/OBS CARE (HIGH) Secondary Visit Codes: [id number] CARE PLAN 30 MINUTES FERN LOPEZ RESIDENT Dec 14, 2024 02:05 ERIC BEAL RESIDENT Dec 14, 2024 06:43
[2024-12-14] MEDS: PANTOPRAZOLE 40 MG/10 ML VIAL INJ IV ONE (02:14)
[2024-12-14] MEDS: SPIRONOLACTONE 25 MG TAB PO ONE (02:15)
[2024-12-14] MEDS: POTASSIUM CHL 20 Meq TABLET PO ONE (02:20)
--- NOTE | 2024-12-14 03:01 | ECG ---
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
--- NOTE | 2024-12-14 03:01 | ECG ---
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
--- NOTE | 2024-12-14 03:05 | ECG ---
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
[2024-12-14] MEDS: SUCRALFATE 1 GM/10 ML ORAL SUSP GT SCH (06:00)
[2024-12-14] MEDS: ACETAMINOPHEN 325 MG TAB PO PRN (06:27)
[2024-12-14] MEDS: CARVEDILOL 3.125 MG TAB PO ONE (06:28)
[2024-12-14] MEDS: InsuLIN REG 1unit/0.01ml Soln (100units/ml) SC SCH (07:13)
[2024-12-14] MEDS: ACCU-CHEK COMFORT CURVE STRIP VI SCH (07:13)
[2024-12-14 07:37] LABS: Hematocrit 40.7 % (41.0-53.0); Hemoglobin 14.5 g/dL (13.5-17.5); Mean Corpuscular Hemoglobin 31.4 pg (28.0-32.0); Mean Corpuscular Volume 87.8 fL (80.0-100.0); Nucleated Red Blood Cells % 0.2 %
[2024-12-14 07:38] LABS: Chloride 102 mmol/L (98-107); Potassium 3.7 mmol/L (3.5-5.1); Sodium 138 mmol/L (136-145)
[2024-12-14 07:39] LABS: Anion Gap 9 (5-15); Carbon Dioxide 27 mmol/L (20-31)
[2024-12-14 07:40] LABS: Calcium 8.8 mg/dL (8.7-10.4)
[2024-12-14 07:45] LABS: BUN/Creatinine Ratio 11.6 (10.0-20.0); Blood Urea Nitrogen 10 mg/dL (9-23)
[2024-12-14 07:50] LABS: Glucose 275 mg/dL (74-106); Magnesium 1.4 mg/dL (1.6-2.6)
[2024-12-14 08:00] VITALS: PULSE 110; RESP 18; TEMP 98.5; O2SAT 96
[2024-12-14] MEDS ORDERED: HYDROcodone-ACET 5/325MG TAB PO PRN (08:45)
[2024-12-14 09:00] VITALS: BP 187/127; PULSE 111; RESP 17; O2SAT 96
[2024-12-14] MEDS: hydrALAZINE HCL 20 MG/ML VL IV PRN (09:13)
[2024-12-14] MEDS ORDERED: PANTOPRAZOLE 40 MG/10 ML VIAL INJ IV SCH (10:00)
[2024-12-14] MEDS ORDERED: SPIRONOLACTONE 25 MG TAB PO SCH (10:00)
[2024-12-14] MEDS ORDERED: EMPAGLIFLOZIN 10 MG TAB PO SCH (10:00)
[2024-12-14] MEDS ORDERED: LIDOCAINE 5% TOPICAL PATCH TOP SCH (10:00)
[2024-12-14] MEDS ORDERED: CARVEDILOL 3.125 MG TAB PO SCH (10:00)
[2024-12-14] MEDS ORDERED: SACUBITRIL-VALSARTAN 24mg/26mg TAB PO SCH (10:00)
[2024-12-14 10:04] LABS: Lipase 35 U/L (12-53)
[2024-12-14] MEDS ORDERED: ATORVASTATIN 20 MG TAB PO SCH (22:00)
== END 2024-12-14 09:28 | disposition left against medical advice (07) | DRG 241 ==
LOC: ER 19:46 → OVERFLOW 12-14 01:35
PROVIDERS: ADMIT Emergency Medicine; ATTEND Emergency Medicine
DX: K29.00 Acute gastritis without bleeding (principal); I50.22 Chronic systolic (congestive) heart failure; K56.7 Ileus, unspecified; I16.0 Hypertensive urgency; I11.0 Hypertensive heart disease with heart failure; E11.65 Type 2 diabetes mellitus with hyperglycemia; B96.81 Helicobacter pylori [H. pylori] as the cause of diseases classified elsewhere; E66.811 Obesity, class 1; F32.A Depression, unspecified; Z53.29 Procedure and treatment not carried out because of patient's decision for other reasons; K59.09 Other constipation; E78.5 Hyperlipidemia, unspecified; I25.10 Atherosclerotic heart disease of native coronary artery without angina pectoris; Z82.49 Family history of ischemic heart disease and other diseases of the circulatory system; Z79.4 Long term (current) use of insulin; Z68.34 Body mass index [BMI] 34.0-34.9, adult; Z79.899 Other long term (current) drug therapy; Z79.82 Long term (current) use of aspirin
CPT/HCPCS: 36415; 71045; 80048; 80053; 80320; 82088; 82533; 83690; 83735; 83835; 83880; 84244; 84439; 84443; 84484; 85025; 85379; 86141; 93005; 96372; 96374; 96375; 99291; G0378; J1815; J2470; Q0162

== ENCOUNTER 2024-12-16 03:07 | Emergency (ER) | payer MEDICAID ==
[~2024-12-16] VITALS: Ht 170.2 cm; Wt 100.0 kg
[2024-12-16 03:16] VITALS: BP 188/116; PULSE 121; RESP 20; TEMP 98.2; O2SAT 98
[2024-12-16 04:01] LABS: Hematocrit 39.9 % (41.0-53.0); Hemoglobin 14.1 g/dL (13.5-17.5); Mean Corpuscular Hemoglobin 31.1 pg (28.0-32.0); Mean Corpuscular Volume 88.0 fL (80.0-100.0); Nucleated Red Blood Cells % 0.0 %
[2024-12-16 04:16] LABS: Alanine Aminotransferase 32 U/L (7-40); Albumin 4.0 g/dL (3.2-4.8); Alkaline Phosphatase 92 U/L (46-116); Anion Gap 12 (5-15); BUN/Creatinine Ratio 8.8 (10.0-20.0); Carbon Dioxide 23 mmol/L (20-31); Chloride 103 mmol/L (98-107); Sodium 138 mmol/L (136-145); Total Protein 7.0 g/dL (5.7-8.2)
[2024-12-16 04:17] LABS: Bilirubin, Total 0.4 mg/dL (0.2-1.0)
[2024-12-16 04:22] LABS: Blood Urea Nitrogen 8 mg/dL (9-23); Calcium 8.7 mg/dL (8.7-10.4); Glucose 380 mg/dL (74-106); Potassium 3.2 mmol/L (3.5-5.1)
[2024-12-16] MEDS ORDERED: HYDROcodone-ACET 10/325MG TAB PO ONE (04:45)
--- NOTE | 2024-12-16 04:50 | ED.PDOC ---
History of Present Illness HPI Comments 49 y/o obese M presents with c/c of hypertension and substernal chest and diffused abdominal pain. Significant past medical history of HFrEF with ejection fraction 30-35%, coronary artery disease, diabetes mellitus type 2, hyperlipidemia, hypertension, and drug-seeking behavior. Patient reports on checking and noticing his blood pressure being elevated, today, following starting on a new blood pressure medication. He also reports on returning to the ED for same complaint of chest and abdominal pain during previous visit. He denies any shortness of breath, nausea, vomiting, or further associated symptoms. Chief Complaint: High Blood Pressure Time Seen by MD: 04:30 Primary Care Provider: ? Reviewed Notes: Nurses Notes, Medications, Allergies Allergies: Coded Allergies: No Known Drug Allergy (Verified Allergy, Unknown, 12/24/23) Home Meds Active Scripts Hydrocodone-Acetaminophen (Hydrocodone Bitartrate/AC 5-325 mg) 1 Tab Tab, 1 TAB PO Q8HP PRN, #14 TAB Prov:GENIE MELENDEZ MD 12/05/24 Carvedilol (Carvedilol) 25 Mg Tab, 1 TAB PO BID, #60 TAB 5 Refills Prov:GENIE MELENDEZ MD 12/05/24 Empagliflozin (Jardiance) 10 Mg Tab, 10 MG PO DAILY, #30 TAB Prov:GENIE MELENDEZ MD 12/05/24 Trazodone Hcl (Trazodone Hcl) 50 Mg Tab, 1 TAB PO QHSP PRN for PSYCHOPHYSIOLOGIC INSOMNIA for 14 Days, #14 TAB Prov:GENIE MELENDEZ MD 12/05/24 Lisinopril (Lisinopril) 40 Mg Tab, 1 TAB PO DAILY, #30 TAB 1 Refill Prov:CAROLINA OVALLE MD 08/23/24 Duloxetine Hcl (Cymbalta) 20 Mg Cap, 1 CAP PO DAILY for 30 Days, #30 CAP Prov:ALE HARRIS RESIDENT 08/15/24 Insulin Glargine (Lantus) 100 Unit/Ml Inj, 35 UNITS SC BID@1000,2200 for 30 Days, #1 INJ Prov:CORRINE GRAHAM RESIDENT 12/28/23 Reported Medications Omeprazole (Gnp Omeprazole) 20 Mg Tab, 1 TAB PO DAILY, #90 TAB 1 Refill 12/02/24 Spironolactone (Spironolactone) 50 Mg Tab, 1 TAB PO DAILY, #30 TAB 5 Refills 12/02/24 Atorvastatin Calcium (Lipitor) 40 Mg Tab, 1 TAB PO DAILY, #30 TAB 5 Refills 12/02/24 Sildenafil Citrate (Sildenafil Citrate) 20 Mg Tab, 1 TAB PO DAILY for 30 Days, #30 09/24/24 Sucralfate (CARAFATE SUSP) 1 Gm/10 Ml Ss, 10 ML PO BID for 30 Days, #600 09/24/24 Senna (Senna-Time) 8.6 Mg Tab, 2 TAB PO DAILY for 30 Days, #60 09/24/24 Tirzepatide (Mounjaro) 7.5 Mg/0.5 Ml Inj, 7.5 MG SUBCUT QWEEKLY for 28 Days, #2 09/24/24 Ergocalciferol (Vitamin D) 50,000 Unit Cap, 1 CAP PO QWEEKLY for 28 Days, #4 09/24/24 Gabapentin (Gabapentin) 300 Mg Cap, 3 CAP PO TID for 30 Days, #270 09/24/24 Metoclopramide HCl (Metoclopramide Hydrochlor) 10 Mg Tab, 1 TAB PO TID for 30 Days, #90 09/24/24 Pantoprazole Sodium Sesquihydr (Pantoprazole Sodium) 40 Mg Tab, 1 TAB PO BID for 30 Days, #60 09/24/24 Polyethylene Glycol 3350 (Gnp Clearlax) 17 Gm/Scoop Pow, 17 GM PO DAILY for 30 Days, #510 09/24/24 Clonidine Hydrochloride (Clonidine Hcl) 0.1 Mg Tab, 1 TAB PO BIDPRN for 30 Days, #60 09/24/24 Insulin Lispro (Humalog Kwikpen) 100 Unit/Ml Inj, 25 UNITS SC AC for 40 Days, #30 08/14/24 Furosemide (Furosemide) 20 Mg Tab, 1 TAB PO BID for 90 Days, #180 08/14/24 Hydroxyzine Hcl (Hydroxyzine Hcl) 25 Mg Tab, 1 TAB PO DAILY for 30 Days, #30 08/14/24 Linaclotide Base (LINZESS) 145 Mcg Cap, 1 CAP PO DAILY for 30 Days, #30 08/14/24 Nitroglycerin (NTROSTAT SUBLINGUAL) 0.4 Mg Sl, 0.4 MG SL PRN, TAB *MAY REPEAT EVERY 5 MINUTES X 3 TOTAL IF NO RELIEF, INITIATE ANALGESIC THERAPY. NOTIFY PHYSICIAN *Do not crush. 12/25/23 Information Source: Patient Mode of Arrival: Ambulatory Severity: Moderate Timing: Hours Duration: Since onset Prehospital treatment: None Past Medical History PAST MEDICAL HISTORY: CAD, CHF, DM, High Lipids, HTN Surgical History: Denies all surgeries Family History Family History: Reviewed,noncontributory to illness Social History Smoker: Non-Smoker Alcohol: Denies ETOH Use Drugs: Denies Drug Use Lives In: Home All Other Systems: Reviewed and Negative (As per HPI) Physical Exam General Appearance: No Apparent Distress, Obese HEENT: Normal ENT Inspection, Pharynx Normal, TMs Normal Neck: Full Range of Motion, Non-Tender, Normal, Normal Inspection Respiratory: Chest Non-Tender, Lungs Clear, No Accessory Muscle Use, No Respiratory Distress, Normal Breath Sounds Cardiovascular: No Edema, No JVD, No Murmur, No Gallop, Normal Peripheral Pulses, Regular Rate/Rhythm Breast Exam: Deferred Gastrointestinal: No Organomegaly, Non Tender, No Pulsatile Mass, Normal Bowel Sounds, Soft Genitalia: Deferred Pelvic: Deferred Rectal: Deferred Extremities: No calf tenderness, Normal capillary refill, Normal inspection, Normal range of motion, Non-tender, No pedal edema Musculoskeletal : Apperance: Normal Neurologic: Alert, keg raiser II-XII nml as Tested, No Motor Deficits, Normal Affect, Normal Mood, No Sensory Deficits Cerebellar Function: Normal Reflexes: Normal Skin: Dry, Normal Color, Warm Lymphatic: No Adenopathy Was a procedure done? Was a procedure done?: No Differential Dx Considerations may include: TX, PE, ACS, URI, PNA, CAD, angina, anxiety, gastritis, gastroenteritis, among others X-Ray, Labs, Meds, VS Vital Signs Date Time Temp Pulse Resp B/P (MAP) Pulse Ox O2 Delivery O2 Flow Rate FiO2 12/16/24 03:16 98.2 121 20 188/116 98 98.2 Lab Test 12/16/24 03:48 Range/Units White Blood Count 10.5 # 4.4-10.8 10^3/uL Red Blood Count 4.54 4.5-5.90 10^6/uL Hemoglobin 14.1 13.5-17.5 g/dL Hematocrit 39.9 L 41.0-53.0 % Mean Corpuscular Volume 88.0 80.0-100.0 fL Mean Corpuscular Hemoglobin 31.1 28.0-32.0 pg Mean Corpuscular Hemoglobin Concent 35.4 32.0-36.0 g/dL Red Cell Distribution Width 14.8 H 11.8-14.3 % Platelet Count 268 140-450 10^3/uL Mean Platelet Volume 8.2 6.9-10.8 fL Neutrophils (%) (Auto) 61.6 37.0-80.0 % Lymphocytes (%) (Auto) 24.0 10.0-50.0 % Monocytes (%) (Auto) 10.8 0.0-12.0 % Eosinophils (%) (Auto) 2.5 0.0-7.0 % Basophils (%) (Auto) 1.1 0.0-2.0 % Neutrophils # (Auto) 6.5 1.6-8.6 10 ^3/uL Lymphocytes # (Auto) 2.5 0.4-5.4 10 ^3/uL Monocytes # (Auto) 1.1 0-1.3 10 ^3/uL Eosinophils # (Auto) 0.3 0-0.8 10 ^3/uL Basophils # (Auto) 0.1 0-0.2 10 ^3/uL Nucleated Red Blood Cells 0.0 % Sodium Level 138 136-145 mmol/L Potassium Level 3.2 L 3.5-5.1 mmol/L Chloride Level 103 98-107 mmol/L Carbon Dioxide Level 23 20-31 mmol/L Anion Gap 12 5-15 Blood Urea Nitrogen 8 L 9-23 mg/dL Creatinine 0.91 0.700-1.30 mg/dL Glomerular Filtration Rate Calc 103 >90 mL/min BUN/Creatinine Ratio 8.8 L 10.0-20.0 Serum Glucose 380 #H 74-106 mg/dL Calcium Level 8.7 8.7-10.4 mg/dL Total Bilirubin 0.4 0.2-1.0 mg/dL Aspartate Amino Transferase (AST) 25 13-40 U/L Alanine Aminotransferase (ALT) 32 7-40 U/L Alkaline Phosphatase 92 46-116 U/L Troponin I High Sensitivity 13 </=54 ng/L Total Protein 7.0 5.7-8.2 g/dL Albumin 4.0 3.2-4.8 g/dL Lipase Pending [address] [address] Ph: [phone] DIAGNOSTIC IMAGING Diagnostic Imaging Report : [id number] Signed PATIENT: EULOGIO LAUGHLIN JR ACCT: [id number] UNIT: [id number] : 1975 LOC: ER ROOM / BED: / AGE / SEX: 49 / M ADM STATUS: REG ER SERVICE 9 ORDERING PHYSICIAN: ZULEYKA MENDES MD PROCEDURE(s): CXR1 - CHEST XRAY 1 VIEW REASON: pain ORDER NUMBER(s): [id number], ACCESSION NUMBER(s): [id number] CHEST RADIOGRAPH Indication: Pain. Technique: Single frontal view of the chest was obtained Comparison: XR CHEST 1 VIEW on DOS: 12/15/24 FINDINGS: Lines and Tubes: None Lungs: No focal consolidation. Pleura: No effusion. No pneumothorax. Cardiomediastinal contours: Unremarkable Bones: No acute osseous abnormality. IMPRESSION: 1. No acute cardiopulmonary disease. ATED BY: JANET HERZOG MD DICTATED DATE/TIME: 12/16/24519 SIGNED BY: JANET HERZOG MD SIGNED DATE/TIME: 12/16/24519 CC: [address] [address] Ph: [phone] DIAGNOSTIC IMAGING Diagnostic Imaging Report : [id number] Signed PATIENT: EULOGIO LAUGHLIN JR ACCT: [id number] UNIT: [id number] : 1975 LOC: ER ROOM / BED: / AGE / SEX: 49 / M ADM STATUS: REG ER SERVICE 9 ORDERING PHYSICIAN: ZULEYKA MENDES MD PROCEDURE(s): ABDS - ABDOMEN 2 VIEW REASON: abd pain ORDER NUMBER(s): [id number], ACCESSION NUMBER(s): [id number] ABDOMINAL RADIOGRAPH Indication: abd pain Technique: Single frontal view of the abdomen was obtained Comparison: CT ABD/PEL on DOS: 12/16/24 FINDINGS: Lines and tubes: None There is a nonobstructive bowel gas pattern. There is diffuse stool throughout the colon. No supine radiographic evidence of pneumoperitoneum. Bony structures unremarkable. IMPRESSION: 1. Nonobstructive bowel gas pattern. 2. Diffuse stool throughout the colon. ATED BY: JANET HERZOG MD DICTATED DATE/TIME: 12/16/24520 SIGNED BY: JANET HERZOG MD SIGNED DATE/TIME: 12/16/24520 CC: Time of 1ST Reevaluation: 05:00 Reevaluation 1ST: Unchanged Patient Education/Counseling: Diagnosis, Treatment Family Education/Counseling: No Family Present SEPSIS Sepsis Screen Date sepsis recognized/suspect: Dec 16, 2024 Time Sepsis recognized/suspect: 319 Recent Procedure: No On Antibiotic Therapy: No Respiratory Rate >20: No Heart Rate >90: No Temp<36 C (96.8 F) or >38.3 C: No SBP <90 or MAP <65 mmHG: No New Acute Mental Status Change: No Is the patient on CPAP, BIPAP,: No Physician Orders Electrocardigram (12/16/24 03:38) Lipase (12/16/24 04:40) Chest Xray 1 View (12/16/24 04:40) Abdomen 2 View (12/16/24 04:40) NS (12/16/24 05:45) Potassium Er Tablet (Klor-Con Tablet) (12/16/24 05:45) Vital Signs Date Time Temp Pulse Resp B/P (MAP) Pulse Ox O2 Delivery O2 Flow Rate FiO2 12/16/24 03:16 98.2 121 20 188/116 98 98.2 Laboratory Tests Test 12/16/24 03:48 White Blood Count 10.5 10^3/uL (4.4-10.8) # Departure 1 Departure Time of Disposition: 05:37 Impression: Primary Impression: Uncontrolled type 2 diabetes mellitus with hyperglycemia Additional Impressions: Acute coronary syndrome Gastroparesis diabeticorum Hypertensive urgency Disposition: ADMITTED INPATIENT Condition: Guarded Discharged With: Self Comments Patient with history of hypertension and type 2 diabetes now with some chest pain. Blood pressure is quite elevated. On lab review patient has hypokalemia 3.2. Hyperglycemia 380. Anion gap is normal at 12. Troponin is normal at 12. Patient was given aspirin and IV fluids and potassium replacement. Patient was given insulin. Patient will need to be admitted for supportive care and further workup. Critical Care Note Critical Care Time?: Yes (35 min-critical care time only) Critical care comment: Total critical care time: Approximately 36 minutes Due to a high probability of clinically significant, life threatening deterioration, the patient required my highest level of preparedness to intervene emergently and I personally spent this critical care time directly and personally managing the patient. This critical care time included obtaining a history; examining the patient; pulse oximetry; ordering and review of studies; arranging urgent treatment with development of a management plan; evaluation of patient's response to treatment; frequent reassessment; and, discussions with other providers. This critical care time was performed to assess and manage the high probability of imminent, life-threatening deterioration that could result in multi-organ failure. It was exclusive of separately billable procedures and treating other patients. Stability Stability form required: No Heart Score Heart Score: Heart Score Response (Comments) Value History Moderate Suspicious 1 EKG Repolarization Disturb 1 Age 45-64 1 Risk Factors >3 or Hx ASHD 2 Troponin Normal limit 0 Total 5 I personally scribed for ZULEYKA MENDES MD ([email or web address]) on 12/16/24 at 04:49. Electronically submitted by Blair Lazo ([email or web address]). I personally scribed for ZULEYKA MENDES MD ([email or web address]) on 12/16/24 at 05:32. Electronically submitted by Blair Lazo ([email or web address]). ZULEYKA MENDES MD Dec 16, 2024 04:49
--- NOTE | 2024-12-16 05:22 | DVH ---
CHEST RADIOGRAPH Indication: Pain. Technique: Single frontal view of the chest was obtained Comparison: XR CHEST 1 VIEW on DOS: 12/15/24 FINDINGS: Lines and Tubes: None Lungs: No focal consolidation. Pleura: No effusion. No pneumothorax. Cardiomediastinal contours: Unremarkable Bones: No acute osseous abnormality. IMPRESSION: 1. No acute cardiopulmonary disease.
--- NOTE | 2024-12-16 05:23 | DVH ---
ABDOMINAL RADIOGRAPH Indication: abd pain Technique: Single frontal view of the abdomen was obtained Comparison: CT ABD/PEL on DOS: 12/16/24 FINDINGS: Lines and tubes: None There is a nonobstructive bowel gas pattern. There is diffuse stool throughout the colon. No supine r adiographic evidence of pneumoperitoneum. Bony structures unremarkable. IMPRESSION: 1. Nonobstructive bowel gas pattern. 2. Diffuse stool throughout the colon.
[2024-12-16] MEDS ORDERED: InsuLIN REG 1unit/0.01ml Soln (100units/ml) SC ONE (05:45)
[2024-12-16] MEDS ORDERED: POTASSIUM CHL 20 Meq TABLET PO ONE (05:45)
[2024-12-16] MEDS ORDERED: hydrALAZINE HCL 20 MG/ML VL IV ONE (05:45)
[2024-12-16] MEDS ORDERED: SODIUM CHLORIDE 0.9% 1,000 ML IV ONE (05:45)
== END 2024-12-16 11:20 | disposition left against medical advice (07) ==
LOC: ER 03:07
DX: E11.65 Type 2 diabetes mellitus with hyperglycemia (principal); I24.9 Acute ischemic heart disease, unspecified; K31.84 Gastroparesis; E11.43 Type 2 diabetes mellitus with diabetic autonomic (poly)neuropathy; I11.0 Hypertensive heart disease with heart failure; I50.9 Heart failure, unspecified; I16.0 Hypertensive urgency; Z79.84 Long term (current) use of oral hypoglycemic drugs; E78.5 Hyperlipidemia, unspecified; Z79.85 Long-term (current) use of injectable non-insulin antidiabetic drugs; Z79.899 Other long term (current) drug therapy
CPT/HCPCS: 36415; 71045; 74021; 80053; 83690; 84484; 85025

== ENCOUNTER 2024-12-20 16:13 | Inpatient (IN) | payer MEDICAID ==
[~2024-12-20] VITALS: Ht 170.2 cm; Wt 99.4 kg
--- NOTE | 2024-12-20 16:22 | ECG ---
[facility] Test Date: 2024-12-20 Test Time: 16:21:16 Pat Name: EULOGIO LAUGHLIN Department: Room: 0284T Gender: M Electrophysiology Tech: JA : 1975 Requested By: EMERGENCY EMERGENCY Order Number: [id number] Reading MD: Edouard Cifuentes Measurements Intervals [place] Rate: 121 P: 58 CO: 144 QRS: -24 QRSD: 113 T: 170 QT: 357 QTc: 507 Interpretive Statements Sinus tachycardia Probable left atrial enlargement Abnormal R-wave progression, late transition Left ventricular hypertrophy Nonspecific T abnormalities, lateral leads Prolonged QT interval Electronically Signed On 12-23-2024 15:00:12 PDT by Edouard Cifuentes Please click the below link to view image of tracing.
--- NOTE | 2024-12-20 16:40 | ED.PDOC ---
History of Present Illness HPI Comments 49-year-old male came to the ER stating that he has been having chest pain since last Monday. Patient was here Monday for which he could not wait to be seen. He left without being seen. He did go to his primary care physician office for which he was given medication for his blood pressure. He continues to have chest pain this morning. Chest pain at rest. He called his primary care physician of his for which they referred him to the ER. Apart from hypotension he has diabetes. He continues to have chest pain. No radiation of the chest pain. Denies any other symptoms. Chief Complaint: Chest Pain Time Seen by MD: 16:22 Primary Care Provider: ? Reviewed Notes: Nurses Notes, Medications, Allergies Allergies: Coded Allergies: No Known Drug Allergy (Verified Allergy, Unknown, 12/24/23) Home Meds Active Scripts Hydrocodone-Acetaminophen (Hydrocodone Bitartrate/AC 5-325 mg) 1 Tab Tab, 1 TAB PO Q8HP PRN, #14 TAB Prov:GENIE MELENDEZ MD 12/05/24 Carvedilol (Carvedilol) 25 Mg Tab, 1 TAB PO BID, #60 TAB 5 Refills Prov:GENIE MELENDEZ MD 12/05/24 Empagliflozin (Jardiance) 10 Mg Tab, 10 MG PO DAILY, #30 TAB Prov:GENIE MELENDEZ MD 12/05/24 Trazodone Hcl (Trazodone Hcl) 50 Mg Tab, 1 TAB PO QHSP PRN for PSYCHOPHYSIOLOGIC INSOMNIA for 14 Days, #14 TAB Prov:GENIE MELENDEZ MD 12/05/24 Lisinopril (Lisinopril) 40 Mg Tab, 1 TAB PO DAILY, #30 TAB 1 Refill Prov:CAROLINA OVALLE MD 08/23/24 Duloxetine Hcl (Cymbalta) 20 Mg Cap, 1 CAP PO DAILY for 30 Days, #30 CAP Prov:ALE HARRIS RESIDENT 08/15/24 Insulin Glargine (Lantus) 100 Unit/Ml Inj, 35 UNITS SC BID@1000,2200 for 30 Days, #1 INJ Prov:CORRINE GRAHAM RESIDENT 12/28/23 Reported Medications Omeprazole (Gnp Omeprazole) 20 Mg Tab, 1 TAB PO DAILY, #90 TAB 1 Refill 12/02/24 Spironolactone (Spironolactone) 50 Mg Tab, 1 TAB PO DAILY, #30 TAB 5 Refills 12/02/24 Atorvastatin Calcium (Lipitor) 40 Mg Tab, 1 TAB PO DAILY, #30 TAB 5 Refills 12/02/24 Sildenafil Citrate (Sildenafil Citrate) 20 Mg Tab, 1 TAB PO DAILY for 30 Days, #30 09/24/24 Sucralfate (CARAFATE SUSP) 1 Gm/10 Ml Ss, 10 ML PO BID for 30 Days, #600 09/24/24 Senna (Senna-Time) 8.6 Mg Tab, 2 TAB PO DAILY for 30 Days, #60 09/24/24 Tirzepatide (Mounjaro) 7.5 Mg/0.5 Ml Inj, 7.5 MG SUBCUT QWEEKLY for 28 Days, #2 09/24/24 Ergocalciferol (Vitamin D) 50,000 Unit Cap, 1 CAP PO QWEEKLY for 28 Days, #4 09/24/24 Gabapentin (Gabapentin) 300 Mg Cap, 3 CAP PO TID for 30 Days, #270 09/24/24 Metoclopramide HCl (Metoclopramide Hydrochlor) 10 Mg Tab, 1 TAB PO TID for 30 Days, #90 09/24/24 Pantoprazole Sodium Sesquihydr (Pantoprazole Sodium) 40 Mg Tab, 1 TAB PO BID for 30 Days, #60 09/24/24 Polyethylene Glycol 3350 (Gnp Clearlax) 17 Gm/Scoop Pow, 17 GM PO DAILY for 30 Days, #510 09/24/24 Clonidine Hydrochloride (Clonidine Hcl) 0.1 Mg Tab, 1 TAB PO BIDPRN for 30 Days, #60 09/24/24 Insulin Lispro (Humalog Kwikpen) 100 Unit/Ml Inj, 25 UNITS SC AC for 40 Days, #30 08/14/24 Furosemide (Furosemide) 20 Mg Tab, 1 TAB PO BID for 90 Days, #180 08/14/24 Hydroxyzine Hcl (Hydroxyzine Hcl) 25 Mg Tab, 1 TAB PO DAILY for 30 Days, #30 08/14/24 Linaclotide Base (LINZESS) 145 Mcg Cap, 1 CAP PO DAILY for 30 Days, #30 08/14/24 Nitroglycerin (NTROSTAT SUBLINGUAL) 0.4 Mg Sl, 0.4 MG SL PRN, TAB *MAY REPEAT EVERY 5 MINUTES X 3 TOTAL IF NO RELIEF, INITIATE ANALGESIC THERAPY. NOTIFY PHYSICIAN *Do not crush. 12/25/23 Information Source: Patient Mode of Arrival: Ambulatory Severity: Moderate Timing: Days Duration: Since onset Past Medical History PAST MEDICAL HISTORY: CAD, CHF, DM, High Lipids, HTN Surgical History: Denies all surgeries Family History Family History: Reviewed,noncontributory to illness Social History Smoker: Non-Smoker Alcohol: Denies ETOH Use Drugs: Denies Drug Use Lives In: Home Constitutional: denies: chills, diaphoresis, fatigue, fever, malaise, sweats, weakness, others EENTM: denies: blurred vision, double vision, ear bleeding, ear discharge, ear drainage, ear pain, ear ringing, eye pain, eye redness, hearing loss, mouth pain, mouth swelling, nasal discharge, nose bleeding, nose congestion, nose pain, photophobia, tearing, throat pain, throat swelling, voice changes, others Respiratory: denies: cough, hemoptysis, orthopnea, SOB at rest, shortness of breath, SOB with excertion, stridor, wheezing, others Cardiovascular: reports: chest pain; denies: dizzy spells, diaphoresis, Dyspnea on exertion, edema, irregular heart beat, left arm pain, lightheadedness, palpitations, PND, syncope, others Gastrointestinal: denies: abdomen distended, abdominal pain, blood streaked bowels, constipated, diarrhea, dysphagia, difficulty swallowing, hematemesis, melena, nausea, poor appetite, poor fluid intake, rectal bleeding, rectal pain, vomiting, others Genitourinary: denies: burning, dysuria, flank pain, frequency, hematuria, incontinence, penile discharge, penile sore, pain, testicle pain, testicle swelling, urgency, others Neurological: denies: dizziness, fainting, headache, left sided numbness, left sided weakness, numbness, paresthesia, pre-existing deficit, right sided numbness, right sided weakness, seizure, speech problems, tingling, tremors, weakness, others Musculoskeletal: denies: back pain, gout, joint pain, joint swelling, muscle pain, muscle stiffness, neck pain, others Integumetry: denies: bruises, change in color, change in hair/nails, dryness, laceration, lesions, lumps, rash, wounds, others Allergic/Immunocompromised: denies: Difficulty Healing, Frequent Infections, Hives, Itching, others Hematologic/Lymphatic: denies: anemia, blood clots, easy bleeding, easy bruising, swollen glands, others Endocrine: denies: excessive hunger, excessive sweating, excessive thirst, excessive urination, flushing, intolerance to cold, intolerance to heat, unexplained weight gain, unexplained weight loss, others Psychiatric: denies: anxiety, bipolar disorder, depression, hopeless, panic disorder, schizophrenia, sleepless, suicidal, others All Other Systems: Reviewed and Negative Physical Exam General Appearance: Moderate Distress HEENT: Normal ENT Inspection, Pharynx Normal, TMs Normal Neck: Full Range of Motion, Non-Tender, Normal, Normal Inspection Respiratory: Chest Non-Tender, Lungs Clear, No Accessory Muscle Use, No Respiratory Distress, Normal Breath Sounds Cardiovascular: No Edema, No JVD, No Murmur, No Gallop, Normal Peripheral Pulses, Tachycardia Breast Exam: Deferred Gastrointestinal: No Organomegaly, Non Tender, No Pulsatile Mass, Normal Bowel Sounds, Soft Genitalia: Deferred Pelvic: Deferred Rectal: Deferred Extremities: No calf tenderness, Normal capillary refill, Normal inspection, Normal range of motion, Non-tender, No pedal edema Musculoskeletal : Apperance: Normal Neurologic: Alert, race relations adviser II-XII nml as Tested, No Motor Deficits, Normal Affect, Normal Mood, No Sensory Deficits Cerebellar Function: Normal Reflexes: Normal Skin: Dry, Normal Color, Warm Peripheral Pulses: 3+ Radial (R), 3+ Radial (L) Lymphatic: No Adenopathy Was a procedure done? Was a procedure done?: No EKG EKG : Pulse Rate (adult): 122 Cardiac Rhythm: ST Differential Dx Considerations may include: Anemia Electrolyte imbalance X-Ray, Labs, Meds, VS Vital Signs Date Time Temp Pulse Resp B/P (MAP) Pulse Ox O2 Delivery O2 Flow Rate FiO2 12/20/24 16:40 122 12/20/24 16:21 121 12/20/24 16:17 97.5 127 20 216/158 99 97.5 Lab Test 12/20/24 16:26 Range/Units White Blood Count 8.3 4.4-10.8 10^3/uL Red Blood Count 4.79 4.5-5.90 10^6/uL Hemoglobin 15.0 13.5-17.5 g/dL Hematocrit 41.7 41.0-53.0 % Mean Corpuscular Volume 87.1 80.0-100.0 fL Mean Corpuscular Hemoglobin 31.4 28.0-32.0 pg Mean Corpuscular Hemoglobin Concent 36.0 32.0-36.0 g/dL Red Cell Distribution Width 14.4 H 11.8-14.3 % Platelet Count 265 140-450 10^3/uL Mean Platelet Volume 7.9 6.9-10.8 fL Neutrophils (%) (Auto) 65.9 37.0-80.0 % Lymphocytes (%) (Auto) 21.3 10.0-50.0 % Monocytes (%) (Auto) 10.0 0.0-12.0 % Eosinophils (%) (Auto) 1.8 0.0-7.0 % Basophils (%) (Auto) 1.0 0.0-2.0 % Neutrophils # (Auto) 5.4 1.6-8.6 10 ^3/uL Lymphocytes # (Auto) 1.8 0.4-5.4 10 ^3/uL Monocytes # (Auto) 0.8 0-1.3 10 ^3/uL Eosinophils # (Auto) 0.1 0-0.8 10 ^3/uL Basophils # (Auto) 0.1 0-0.2 10 ^3/uL Nucleated Red Blood Cells 0.1 % Sodium Level Pending Potassium Level Pending Chloride Level Pending Carbon Dioxide Level Pending Anion Gap Pending Blood Urea Nitrogen Pending Creatinine Pending Glomerular Filtration Rate Calc Pending BUN/Creatinine Ratio Pending Serum Glucose Pending Calcium Level Pending Troponin I High Sensitivity Pending Patient alert. Tachycardia. Blood pressure elevated. Saturation pristine on room air. Was given labetalol. Continues to have chest pain. Was given aspirin. Was given nitro. EKG reviewed does not show any acute changes. Explained to the patient. Continue monitoring. Images Reviewed?: Images reviewed and evaluated by me Time of 1ST Reevaluation: 16:37 Reevaluation 1ST: Unchanged Patient Education/Counseling: Diagnosis, Treatment, Prognosis Family Education/Counseling: No Family Present SEPSIS Sepsis Screen Date sepsis recognized/suspect: Dec 20, 2024 Time Sepsis recognized/suspect: 1619 Recent Procedure: No On Antibiotic Therapy: No Respiratory Rate >20: No Heart Rate >90: Yes Temp<36 C (96.8 F) or >38.3 C: No SBP <90 or MAP <65 mmHG: No New Acute Mental Status Change: No Is the patient on CPAP, BIPAP,: No Physician Orders Basic Metabolic Panel (12/20/24 16:16) Troponin-I Hs (12/20/24 16:16) Troponin-I Hs (12/20/24 17:16) Troponin-I Hs (12/20/24 19:16) Electrocardigram (12/20/24 17:16) Electrocardigram (12/20/24 19:16) Chest Xray 1 View (12/20/24 16:16) Ct Abd Pelvis W Con-Oral & Iv (12/20/24 16:53) Vital Signs Date Time Temp Pulse Resp B/P (MAP) Pulse Ox O2 Delivery O2 Flow Rate FiO2 12/20/24 16:40 122 12/20/24 16:21 121 12/20/24 16:17 97.5 127 20 216/158 99 97.5 Laboratory Tests Test 12/20/24 16:26 White Blood Count 8.3 10^3/uL (4.4-10.8) Departure 1 Departure Time of Disposition: 16:39 Impression: Primary Impression: Chest pain of unknown etiology Additional Impressions: Hypertensive emergency Uncontrolled diabetes mellitus Qualified Codes: E13.65 - Other specified diabetes mellitus with hyperglycemia Disposition: ADMITTED INPATIENT Admit to: Med Surg Condition: Guarded Critical Care Note Critical Care Time?: Yes (90 min-critical care time only) Stability Stability form required: No Heart Score Heart Score: Heart Score Response (Comments) Value History Slightly Suspicious 0 EKG Normal 0 Age 45-64 1 Risk Factors >3 or Hx ASHD 2 Troponin Normal limit 0 Total 3 I personally scribed for KAYA DANIELSON MD ([email or web address]) on 12/20/24 at 16:56. Electronically submitted by Milagros López ([facility]). KAYA DANIELSON MD Dec 20, 2024 16:40
[2024-12-20 16:49] LABS: Hematocrit 41.7 % (41.0-53.0); Hemoglobin 15.0 g/dL (13.5-17.5); Mean Corpuscular Hemoglobin 31.4 pg (28.0-32.0); Mean Corpuscular Volume 87.1 fL (80.0-100.0); Nucleated Red Blood Cells % 0.1 %
[2024-12-20 17:05] LABS: Chloride 103 mmol/L (98-107); Potassium 3.6 mmol/L (3.5-5.1); Sodium 141 mmol/L (136-145)
[2024-12-20 17:06] LABS: Anion Gap 11 (5-15); Carbon Dioxide 27 mmol/L (20-31)
[2024-12-20 17:07] LABS: Calcium 9.2 mg/dL (8.7-10.4)
--- NOTE | 2024-12-20 17:09 | DVH ---
CHEST RADIOGRAPH Indication: CHEST PAIN Technique: Single frontal view of the chest was obtained COMPARISON: XY CHEST XRAY 1 VIEW on DOS: 12/16/24, XR CHEST 1 VIEW on DOS: 12/15/24, XY CHEST XRAY 1 VIEW on DOS: 12/13/24, XY CHEST PORTABLE on DOS: 12/01/24, XY CHEST XRAY 1 VIEW on DOS: 11/23/24 FINDINGS: Lines and Tubes: None Lungs: Clear Pleura: No effusion. No pneumothorax. Cardiomediastinal contours: Unremarkable Bones: Unremarkable IMPRESSION: No acute disease.
[2024-12-20 17:11] LABS: BUN/Creatinine Ratio 11.2 (10.0-20.0); Blood Urea Nitrogen 10 mg/dL (9-23)
[2024-12-20 17:13] LABS: Glucose 222 mg/dL (74-106)
[2024-12-20 17:18] VITALS: PULSE 119; RESP 19; O2SAT 98
[2024-12-20] MEDS: LABETALOL HCL 20 MG/4 ML VL IV ONE (17:25)
[2024-12-20] MEDS: NITROGLYCERIN 0.4 MG SL TAB SL ONE (17:31)
--- NOTE | 2024-12-20 17:38 | ECG ---
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
[2024-12-20] MEDS: HYDROmorphone HCL 2 MG/ML VL/or syr IV ONE ×2 (17:50→18:39)
[2024-12-20] MEDS: ONDANSETRON HCL 4 MG/2 ML VIAL IV ONE (17:51)
[2024-12-20] MEDS: IOHEXOL 350 MG/ML 100ML IJ ONE (17:59)
--- NOTE | 2024-12-20 18:33 | DVH ---
Indication: chest pain radiating to back Technique: CT axial images of the chest, abdomen and pelvis are obtained with contrast. Coronal and s agittal reformats were obtained. Comparison: CT CT AB PEL WITH IV CON ONLY on DOS: 12/02/24 FINDINGS: The heart is enlarged. Coronary artery calcification disease. The ascending aorta measuring 3.7 cm. D escending thoracic aorta measures 2.8 cm. Abdominal aorta normal in caliber without evidence for aneu rysmal dilatation / dissection. There are 2 bilateral renal arteries. The trachea is patent. No pneumothorax. No pulmonary airspace consolidation. No supraclavicular, axillary lymphadenopathy. No mediastinal/ hilar lymphadenopathy. Adrenal glands, spleen, pancreas unremarkable. No enhancing hepatic lesion. No CT evidence for chol elithiasis. No hydronephrosis. Stomach is partially distended. Small bowel loops are normal in caliber. Moderate volume stool in the colon. Normal appendix. Bladder partially distended. No free pelvic fluid. No inguinal lymphadenopathy. No aggressive osseous process. [id number] thoracolumbar degenerative disc disease most pronounc ed at L4-5 and L5-S1. IMPRESSION: No evidence for aortic dissection/aneurysmal dilatation. Cardiomegaly, coronary artery calcification disease. Other findings as described.
[2024-12-20] MEDS ORDERED: DEXTROSE (50%) 50ML SYRG IV PRN (19:15)
[2024-12-20] MEDS ORDERED: ONDANSETRON HCL 4 MG/2 ML VIAL IV PRN (19:15)
[2024-12-20] MEDS ORDERED: DOCUSATE SOD 100 MG CAP PO PRN (19:15)
[2024-12-20] MEDS ORDERED: ACETAMINOPHEN 325 MG TAB PO PRN (19:15)
[2024-12-20 19:30] VITALS: PULSE 108
[2024-12-20] MEDS ORDERED: NITROGLYCERIN 0.4 MG SL TAB SL PRN (20:00)
[2024-12-20] MEDS ORDERED: MORPHINE SULFATE INJ 2 MG/ml SYRG IV PRN (20:00)
--- NOTE | 2024-12-20 20:02 | DVHHP2 ---
History of Present Illness Reason for Visit: Hypertensive emergency History of Present Illness The patient is a 49-year-old male with past medical history of Coronary artery disease, CHF, diabetes mellitus, hyperlipidemia, and hypertension who presented to [facility] ED with complaint of chest pain. Patient was here Monday but he could not wait to be seen, left without being seen. He did go to his primary care physician office and was given medication for his blood pressure. However, patient continues to have chest pain this morning, chest pain at rest, rating pain 7/10 numeric scale, getting worse that prompted this visit. Patient was seen and evaluated in the ED, laboratory data shows WBC 8.3, platelets 265, sodium 141, potassium 3.6, BUN 10, creatinine 0.89, glucose 222, calcium 9.2, troponin 12, blood pressure 201/138 trending down to 168/106, heart rate 108, temperature 98.9 F, O2 saturation 98% on room air. Chest/abdomen/pel vis CT showed no evidence for aortic dissection/aneurysmal dilatation; noted cardiomegaly, coronary artery calcification disease. Please see medication orders section in the computer. On my assessment, patient denies chest pain at this moment, no dizziness, headache, shortness of breaths, diaphoresis, abdominal pain, nausea, vomiting, fever, no chills. Patient was admitted for further evaluation and medical management. Past Medical History CAD, CHF, DM, High Lipids, HTN Past Surgical History Denies all surgeries Family History Reviewed, noncontributory to the management of this case. Past Social History The patient lives at home, denies smoking, alcohol or illicit drugs abuse. Review of Systems Constitutional: Yes: Weakness; No: Fever, Chills, Sweats, Malaise, Other Eyes: No: Pain, Vision change, Conjunctivae inflammation, Eyelid inflammation, Other, Redness ENT: No: Ear pain, Ear discharge, Nose pain, Nose discharge, Nose congestion, Mouth pain, Mouth swelling, Throat pain, Throat swelling, Other Respiratory: No: Cough, Dry, Shortness of breath, SOB with excertion, Wheezing, Hemoptysis, Pleuritic Pain, Sputum, Wheezing, Other Cardiovascular: Chest Pain, Other (Hypertension); No: Palpitations, Orthopnea, Paroxysmal Noc. Dyspnea, Edema, Lt Headedness Gastrointestinal: No: Nausea, Vomiting, Abdominal Pain, Diarrhea, Constipation, Melena, Hematochezia, Other Genitourinary: No Dysuria, No Frequency, No Incontinence, No Hematuria, No Retention, No Other Musculoskeletal: No: other, neck pain, shoulder pain, arm pain, back pain, hand pain, leg pain, foot pain Skin: No: Rash, Lesions, Jaundice, Bruising, Other Neurological: No: Weakness, Numbness, Incoordination, Change in speech, Confusion, Seizures, Other Allergies: Coded Allergies: No Known Drug Allergy (Verified Allergy, Unknown, 12/24/23) Medications Current Medications Medications Dose Ordered Sig/Jorge Route Start Time Stop Time Status Last Admin Dose Admin Aspirin 81 mg DAILY PO 12/21/24 10:00 Metoprolol Tartrate 50 mg BID PO 12/20/24 22:00 Amlodipine Besylate 5 mg DAILY PO 12/21/24 10:00 Clonidine HCl 0.2 mg Q6HP PRN PO 12/20/24 19:15 Hydromorphone HCl 0.5 mg Q4HPRN PRN IV 12/20/24 19:15 Diagnostic Test (Pha) 1 strip IQ4HR 12/20/24 20:00 Insulin Human Regular IQ4HR SC 12/20/24 20:00 Dextrose 50 ml UD PRN IV 12/20/24 19:15 Sodium Chloride 10 ml Q8HR IV 12/20/24 22:00 Acetaminophen/ Hydrocodone Bitart 1 tab Q4HP PRN PO 12/20/24 19:15 Ondansetron HCl 4 mg Q4HP PRN IV 12/20/24 19:15 UNV Docusate Sodium 100 mg BIDPRN PRN PO 12/20/24 19:15 Acetaminophen 650 mg Q6HP PRN PO 12/20/24 19:15 Exam Vital Signs Vital Signs Date Time Temp Pulse Resp B/P (MAP) Pulse Ox O2 Delivery O2 Flow Rate FiO2 12/20/24 20:01 152/109 12/20/24 19:09 109 14 12/20/24 17:18 98.9 98 98.9 12/20/24 17:18 Room Air* 0 21 General Appearance: Alert, Oriented X3, Cooperative, No acute distress HEENT: Atraumatic, PERRLA, EOMI, Mucous membr. moist/pink Respiratory: Clear to auscultation, Normal air movement Cardiovascular: Regular rate, Normal S1, Normal S2, No murmurs Abdominal: Normal bowel sounds, Soft, No tenderness, No hepatospenomegaly, No masses Extremities: No clubbing, No cyanosis, No edema, Normal pulses, No tenderness/swelling Skin: No rashes, No significant lesion Neuro: Normal speech, Normal tone, Sensation intact, Cranial nerves 3-12 NL, Reflexes 2+, Other (Generalized weakness) Psych/Mental Status: Mental status NL, Mood NL Labs/Xrays Labs Test 12/20/24 19:12 12/20/24 17:57 12/20/24 16:26 Range/Units Troponin I High Sensitivity 12 </=54 ng/L POC Glucose 139 H 70-106 mg/dl White Blood Count 8.3 4.4-10.8 10^3/uL Red Blood Count 4.79 4.5-5.90 10^6/uL Hemoglobin 15.0 13.5-17.5 g/dL Hematocrit 41.7 41.0-53.0 % Mean Corpuscular Volume 87.1 80.0-100.0 fL Mean Corpuscular Hemoglobin 31.4 28.0-32.0 pg Mean Corpuscular Hemoglobin Concent 36.0 32.0-36.0 g/dL Red Cell Distribution Width 14.4 H 11.8-14.3 % Platelet Count 265 140-450 10^3/uL Mean Platelet Volume 7.9 6.9-10.8 fL Neutrophils (%) (Auto) 65.9 37.0-80.0 % Lymphocytes (%) (Auto) 21.3 10.0-50.0 % Monocytes (%) (Auto) 10.0 0.0-12.0 % Eosinophils (%) (Auto) 1.8 0.0-7.0 % Basophils (%) (Auto) 1.0 0.0-2.0 % Neutrophils # (Auto) 5.4 1.6-8.6 10 ^3/uL Lymphocytes # (Auto) 1.8 0.4-5.4 10 ^3/uL Monocytes # (Auto) 0.8 0-1.3 10 ^3/uL Eosinophils # (Auto) 0.1 0-0.8 10 ^3/uL Basophils # (Auto) 0.1 0-0.2 10 ^3/uL Nucleated Red Blood Cells 0.1 % Sodium Level 141 136-145 mmol/L Potassium Level 3.6 3.5-5.1 mmol/L Chloride Level 103 98-107 mmol/L Carbon Dioxide Level 27 20-31 mmol/L Anion Gap 11 5-15 Blood Urea Nitrogen 10 9-23 mg/dL Creatinine 0.89 0.700-1.30 mg/dL Glomerular Filtration Rate Calc 105 >90 mL/min BUN/Creatinine Ratio 11.2 10.0-20.0 Serum Glucose 222 #H 74-106 mg/dL Calcium Level 9.2 8.7-10.4 mg/dL B-Type Natriuretic Peptide 104.01 0-100 pg/mL PATIENT: EULOGIO LAUGHLIN JR ACCT: [id number] UNIT: [id number] : 1975 LOC: ER ROOM / BED: / AGE / SEX: 49 / M ADM STATUS: REG ER SERVICE 1653 ORDERING PHYSICIAN: KAYA DANIELSON MD PROCEDURE(s): CAPIV - CT CHEST/AB/PL W CON- IV ONLY REASON: chest pain radiating to back ORDER NUMBER(s): [id number], ACCESSION NUMBER(s): [id number] Indication: chest pain radiating to back Technique: CT axial images of the chest, abdomen and pelvis are obtained with c ontrast. Coronal and sagittal reformats were obtained. Comparison: CT CT AB PEL WITH IV CON ONLY on DOS: 12/02/24 FINDINGS: The heart is enlarged. Coronary artery calcification disease. The ascending aorta measuring 3.7 cm. Descending thoracic aorta measures 2.8 cm. Abdominal aorta normal in caliber without evidence for aneurysmal dilatation / dissection. There are 2 bilateral renal arteries. The trachea is patent. No pneumothorax. No pulmonary airspace consolidation. No supraclavicular, axillary lymphadenopathy. No mediastinal/ hilar lymphadenopathy. Adrenal glands, spleen, pancreas unremarkable. No enhancing hepatic lesion. No CT evidence for cholelithiasis. No hydronephrosis. Stomach is partially distended. Small bowel loops are normal in caliber. Moderate volume stool in the colon. Normal appendix. Bladder partially distended. No free pelvic fluid. No inguinal lymphadenopathy. No aggressive osseous process. [id number] thoracolumbar degenerative disc disease most pronounced at L4-5 and L5-S1. IMPRESSION: No evidence for aortic dissection/aneurysmal dilatation. Cardiomegaly, coronary artery calcification disease. Other findings as described. ORDERING PHYSICIAN: ER PROCEDURE(s): CXR1 - CHEST XRAY 1 VIEW REASON: CHEST PAIN ORDER NUMBER(s): [id number], ACCESSION NUMBER(s): [id number] CHEST RADIOGRAPH Indication: CHEST PAIN Technique: Single frontal view of the chest was obtained COMPARISON: XY CHEST XRAY 1 VIEW on DOS: 12/16/24, XR CHEST 1 VIEW on DOS: 12/15/24, XY CHEST XRAY 1 VIEW on DOS: 12/13/24, XY CHEST PORTABLE on DOS: 12/01/24, XY CHEST XRAY 1 VIEW on DOS: 11/23/24 FINDINGS: Lines and Tubes: None Lungs: Clear Pleura: No effusion. No pneumothorax. Cardiomediastinal contours: Unremarkable Bones: Unremarkable IMPRESSION: No acute disease. SEPSIS Sepsis Screen Date sepsis recognized/suspect: Dec 20, 2024 Time Sepsis recognized/suspect: 1717 Recent Procedure: No On Antibiotic Therapy: No Respiratory Rate >20: No Heart Rate >90: Yes Temp<36 C (96.8 F) or >38.3 C: No SBP <90 or MAP <65 mmHG: No New Acute Mental Status Change: No Is the patient on CPAP, BIPAP,: No Physician Orders Electrocardigram (12/20/24 19:16) Chest Xray 1 View (12/20/24 16:16) Ct Chest/Ab/Pl W Con- Iv Only (12/20/24 16:53) Consistent Carb(Ccho)Diabetes (12/21/24 Breakfast) Aspirin Tablet (12/21/24 10:00) Metoprolol Tartrate Tablet (Lopressor Ta (12/20/24 22:00) Amlodipine Tablet (Norvasc Tablet) (12/21/24 10:00) Clonidine Hcl Tablet (Catapres Tablet) (12/20/24 19:15) Hydromorphone Injection (Dilaudid Inject (12/20/24 19:15) Glucose Blood (Accu-Chek Comfort Curve T (12/20/24 20:00) Insulin R (Human) (Insulin R) (12/20/24 20:00) Dextrose 50% Syringe (12/20/24 19:15) Allergies (12/20/24 19:13) Code Status (12/20/24 19:13) Sodium Chloride Lock (Saline Lock Ns) (12/20/24 22:00) Oxygen Per Hour (12/20/24 19:13) Hydrocodone-Acet 5/325mg Tab ([place] 5/32 (12/20/24 19:15) Ondansetron Hcl (Zofran) (12/20/24 19:15) Docusate Sodium Capsule (Colace Capsule) (12/20/24 19:15) Complete Blood Count (12/21/24 04:00) Comprehensive Metabolic Panel (12/21/24 04:00) Condition: Serious (12/20/24 19:13) Acetaminophen Tablet (Tylenol Tablet) (12/20/24 19:15) Bedrest With Bathroom Privileg (12/20/24 19:13) Sequential Compression Device (12/20/24 ) * Cardiology Consult (12/20/24 20:00) Admit (12/20/24 20:00) Nitroglycerin Sublingual (Ntrostat Subli (12/20/24 20:00) Morphine Sulfate Injection (12/20/24 20:00) Stat Ekg For Chest Pain (12/20/24 20:00) Notify Md Of Changes From Base (12/20/24 20:00) Tank Officer For 24 Hours (12/20/24 20:00) Emergency Dysrhythmia Protocol (12/20/24 20:00) Rhythm Strips Once Every Shift (12/20/24 20:00) Oxygen By Nasal Cannula (12/20/24 20:00) Vital Signs Date Time Temp Pulse Resp B/P (MAP) Pulse Ox O2 Delivery O2 Flow Rate FiO2 12/20/24 20:01 152/109 12/20/24 19:09 109 14 168/114 12/20/24 18:39 113 17 168/116 12/20/24 18:31 168/116 12/20/24 18:25 111 168/116 12/20/24 18:20 111 19 168/120 12/20/24 17:50 108 22 177/122 12/20/24 17:31 201/138 12/20/24 17:26 115 12/20/24 17:25 112 201/138 12/20/24 17:18 98.9 119 19 201/138 (159) 98 98.9 12/20/24 17:18 119 19 98 Room Air* 0 21 12/20/24 16:55 98.0 123 20 218/134 (162) 99 98.0 208/118 (148) 12/20/24 16:40 122 12/20/24 16:21 121 12/20/24 16:17 97.5 127 20 216/158 99 97.5 Laboratory Tests Test 12/20/24 16:26 White Blood Count 8.3 10^3/uL (4.4-10.8) Medications Medications Dose Ordered Sig/Jorge Route Start Time Stop Time Status Last Admin Dose Admin Amlodipine Besylate 5 mg ONCE ONCE PO 12/20/24 19:15 12/20/24 19:57 DC 12/20/24 20:01 5 MG Aspirin 325 mg ONCE ONCE PO 12/20/24 16:45 12/20/24 16:46 DC 12/20/24 17:24 325 MG Hydromorphone HCl 1 mg ONCE ONCE IV 12/20/24 17:30 12/20/24 17:31 DC 12/20/24 17:50 1 MG Hydromorphone HCl 1 mg ONCE ONCE IV 12/20/24 18:30 12/20/24 18:31 DC 12/20/24 18:39 1 MG Labetalol HCl 10 mg ONCE ONCE IV 12/20/24 16:45 12/20/24 16:46 DC 12/20/24 17:25 10 MG Nitroglycerin 0.4 mg ONCE ONCE SL 12/20/24 16:45 12/20/24 16:46 DC 12/20/24 17:31 0.4 MG Ondansetron HCl 4 mg ONCE ONCE IV 12/20/24 17:30 12/20/24 17:31 DC 12/20/24 17:51 4 MG Assessment/Plan Assessment/Plan Chest pain of unknown etiology Hypertensive emergency Uncontrolled diabetes mellitus Other specified diabetes mellitus with hyperglycemia Plan 1. Admit to telemetry unit 2. Breathing treatment 3. Pain control management 4. Management of fluids and electrolytes 5. Consultation for Cardiology 6. Diagnostic tests chest x-ray 7. DVT prophylaxis-on aspirin 8. Repeat labs CBC, CMP in a.m. 9. Continue with current medical management 10. Treatment plan discussed with patient and RN. Patient verbalized understanding. Plan discussed with: Patient, Other (RN) My Orders Orders - ILIANA KEITH DNP Procedure Category Date Status Time Consistent DIET 12/21/24 Transmitted Carb(Ccho)Diabetes Breakfast Aspirin Tablet PHA 12/21/24 In Process 10:00 Metoprolol Tartrate PHA 12/20/24 In Process Tablet (Lopressor Ta 22:00 Amlodipine Tablet PHA 12/21/24 In Process (Norvasc Tablet) 10:00 Clonidine Hcl Tablet PHA 12/20/24 In Process (Catapres Tablet) 19:15 Hydromorphone PHA 12/20/24 In Process Injection (Dilaudid 19:15 Glucose Blood PHA 12/20/24 In Process (Accu-Chek Comfort 20:00 Insulin R (Human) PHA 12/20/24 In Process (Insulin R) 20:00 Dextrose 50% Syringe PHA 12/20/24 In Process 19:15 Allergies JASWANT 12/20/24 In Process 19:13 Code Status CODE 12/20/24 Transmitted 19:13 Sodium Chloride Lock PHA 12/20/24 In Process (Saline Lock Ns) 22:00 Oxygen Per Hour RT 12/20/24 Transmitted 19:13 Hydrocodone-Acet PHA 12/20/24 In Process 5/325mg Tab ([place] 19:15 Ondansetron Hcl PHA 12/20/24 Logged (Zofran) 19:15 Docusate Sodium PHA 12/20/24 In Process Capsule (Colace 19:15 Complete Blood Count LAB 12/21/24 Verified 04:00 Comprehensive LAB 12/21/24 Verified Metabolic Panel 04:00 Condition: Serious JASWANT 12/20/24 In Process 19:13 Acetaminophen Tablet PHA 12/20/24 In Process (Tylenol Tablet) 19:15 Bedrest With Bathroom JASWANT 12/20/24 In Process Privileg 19:13 Sequential JASWANT 12/20/24 In Process Compression Device * Cardiology Consult CONS 12/20/24 Verified 20:00 Admit ADMIT 12/20/24 Verified 20:00 Nitroglycerin PHA 12/20/24 Verified Sublingual (Ntrostat 20:00 Morphine Sulfate PHA 12/20/24 Verified Injection 20:00 Stat Ekg For Chest JASWANT 12/20/24 Verified Pain 20:00 Notify Of Changes JASWANT 12/20/24 Verified From Base 20:00 Tank Officer For JASWANT 10/24/25 Verified 24 Hours 20:00 Emergency Dysrhythmia JASWANT 12/20/24 Verified Protocol 20:00 Rhythm Strips Once JASWANT 12/20/24 Verified Every Shift 20:00 Oxygen By Nasal RT 12/20/24 Verified Cannula 20:00 Problem List: (1) Chest pain of unknown etiology (2) Hypertensive emergency (3) Uncontrolled diabetes mellitus (4) Other specified diabetes mellitus with hyperglycemia Date of Service: Dec 20, 2024 Billing Provider: ILIANA KEITH DNP Common Visit Codes: [id number] INP/OBS CARE (HIGH) ILIANA KEITH DNP Dec 20, 2024 20:02
[2024-12-20] MEDS: ACCU-CHEK COMFORT CURVE STRIP VI SCH (20:07)
[2024-12-20] MEDS: InsuLIN REG 1unit/0.01ml Soln (100units/ml) SC SCH (20:08)
[2024-12-20] MEDS: HYDROcodone-ACET 5/325MG TAB PO PRN (20:13)
[2024-12-20] MEDS: METOPROLOL TARTRATE 50 MG TAB PO SCH (21:45)
[2024-12-20] MEDS: SODIUM CHLOR 0.9% PF (SALINE LOCK) 10ML VIAL/SYR IV SCH (21:45)
[2024-12-20] MEDS: HYDROmorphone HCL 2 MG/ML VL/or syr IV PRN (21:46)
[2024-12-20 22:08] VITALS: BP 169/123; PULSE 106; RESP 17; TEMP 97.8; O2SAT 96
[2024-12-21] VITALS (8 sets, daily range): BP systolic 141–172; BP diastolic 90–117; PULSE 97–108; RESP 18–19; TEMP 97.9–98.9; O2SAT 94–98
[2024-12-21] MEDS: hydrALAZINE HCL 20 MG/ML VL IV ONE (02:29)
[2024-12-21 10:22] LABS: Hematocrit 40.0 % (41.0-53.0); Hemoglobin 14.3 g/dL (13.5-17.5); Mean Corpuscular Hemoglobin 31.1 pg (28.0-32.0); Mean Corpuscular Volume 86.8 fL (80.0-100.0); Nucleated Red Blood Cells % 0.0 %
[2024-12-21 10:40] LABS: Alanine Aminotransferase 32 U/L (7-40); Albumin 4.1 g/dL (3.2-4.8); Alkaline Phosphatase 85 U/L (46-116); Anion Gap 11 (5-15); BUN/Creatinine Ratio 11.0 (10.0-20.0); Bilirubin, Total 0.8 mg/dL (0.2-1.0); Blood Urea Nitrogen 9 mg/dL (9-23); Calcium 8.8 mg/dL (8.7-10.4); Carbon Dioxide 28 mmol/L (20-31); Chloride 101 mmol/L (98-107); Sodium 140 mmol/L (136-145); Total Protein 7.0 g/dL (5.7-8.2)
[2024-12-21 10:43] LABS: Glucose 187 mg/dL (74-106); Potassium 3.3 mmol/L (3.5-5.1)
--- NOTE | 2024-12-21 10:44 | DVHINCON2 ---
ETELVINA ORTIZ [facility] 12/21/24 1044: Date Seen: Dec 21, 2024 Referring Physician ALICIA Vicente Reason for Consultation Hypertensive emergency History of Present Illness This is a 49-year-old male patient who presents to the emergency room with chief complaint of elevated blood pressure, chest pain, and abdominal pain. He reports having these symptoms since February 2024. The patient was recently seen and discharged from this facility on 12/05/24. He also came back to this facility on 12/14/2024 the left against medical advice due to long wait times. He now comes back to this facility with elevated blood pressure, chest pain and abdominal pain. He describes the chest pain as provoked by the abdominal pain, intermittent, squeezing in nature, substernal with associated headache and right arm numbness. The patient reports he noticed his systolic blood pressure has been reaching over 200s at home despite taking his prescribed medications. Initial twelve lead electrocardiogram seen in patient's chart reveals sinus tachycardia with left ventricular hypertrophy and prolonged QTc interval. Troponin levels have been negative. Patient reports he has not followed up with a teaching dietitian in the outpatient setting. Of note, the patient underwent a coronary angiogram with left heart catheterization on 12/27/2023 which revealed no significant coronary artery disease, but sluggish flow and mild to moderate disease of mid LAD was noted. The patient also recently underwent a nuclear stress test on 12/03/2024 which was negative for ischemia. Past Medical History Past medical history reviewed. No other significant than mentioned above. Past Surgical History Denies any previous surgeries Family History: FHx: multiple myeloma G8 MOTHER, Family History Family history reviewed. Social History History methamphetamine use, quit over two years ago per patient Denies tobacco use Denies alcohol use Allergies: Coded Allergies: No Known Drug Allergy (Verified Allergy, Unknown, 12/24/23) Home Meds Active Scripts Hydrocodone-Acetaminophen (Hydrocodone Bitartrate/AC 5-325 mg) 1 Tab Tab, 1 TAB PO Q8HP PRN, #14 TAB Prov:GENIE MELENDEZ MD 12/05/24 Carvedilol (Carvedilol) 25 Mg Tab, 1 TAB PO BID, #60 TAB 5 Refills Prov:GENIE MELENDEZ MD 12/05/24 Empagliflozin (Jardiance) 10 Mg Tab, 10 MG PO DAILY, #30 TAB Prov:GENIE MELENDEZ MD 12/05/24 Trazodone Hcl (Trazodone Hcl) 50 Mg Tab, 1 TAB PO QHSP PRN for PSYCHOPHYSIOLOGIC INSOMNIA for 14 Days, #14 TAB Prov:GENIE MELENDEZ MD 12/05/24 Lisinopril (Lisinopril) 40 Mg Tab, 1 TAB PO DAILY, #30 TAB 1 Refill Prov:CAROLINA OVALLE MD 08/23/24 Duloxetine Hcl (Cymbalta) 20 Mg Cap, 1 CAP PO DAILY for 30 Days, #30 CAP Prov:ALE HARRIS RESIDENT 08/15/24 Insulin Glargine (Lantus) 100 Unit/Ml Inj, 35 UNITS SC BID@1000,2200 for 30 Days, #1 INJ Prov:CORRINE GRAHAM RESIDENT 12/28/23 Reported Medications Omeprazole (Gnp Omeprazole) 20 Mg Tab, 1 TAB PO DAILY, #90 TAB 1 Refill 12/02/24 Spironolactone (Spironolactone) 50 Mg Tab, 1 TAB PO DAILY, #30 TAB 5 Refills 12/02/24 Atorvastatin Calcium (Lipitor) 40 Mg Tab, 1 TAB PO DAILY, #30 TAB 5 Refills 12/02/24 Sildenafil Citrate (Sildenafil Citrate) 20 Mg Tab, 1 TAB PO DAILY for 30 Days, #30 09/24/24 Sucralfate (CARAFATE SUSP) 1 Gm/10 Ml Ss, 10 ML PO BID for 30 Days, #600 09/24/24 Senna (Senna-Time) 8.6 Mg Tab, 2 TAB PO DAILY for 30 Days, #60 09/24/24 Tirzepatide (Mounjaro) 7.5 Mg/0.5 Ml Inj, 7.5 MG SUBCUT QWEEKLY for 28 Days, #2 09/24/24 Ergocalciferol (Vitamin D) 50,000 Unit Cap, 1 CAP PO QWEEKLY for 28 Days, #4 09/24/24 Gabapentin (Gabapentin) 300 Mg Cap, 3 CAP PO TID for 30 Days, #270 09/24/24 Metoclopramide HCl (Metoclopramide Hydrochlor) 10 Mg Tab, 1 TAB PO TID for 30 Days, #90 09/24/24 Pantoprazole Sodium Sesquihydr (Pantoprazole Sodium) 40 Mg Tab, 1 TAB PO BID for 30 Days, #60 09/24/24 Polyethylene Glycol 3350 (Gnp Clearlax) 17 Gm/Scoop Pow, 17 GM PO DAILY for 30 Days, #510 09/24/24 Clonidine Hydrochloride (Clonidine Hcl) 0.1 Mg Tab, 1 TAB PO BIDPRN for 30 Days, #60 09/24/24 Insulin Lispro (Humalog Kwikpen) 100 Unit/Ml Inj, 25 UNITS SC AC for 40 Days, #30 08/14/24 Furosemide (Furosemide) 20 Mg Tab, 1 TAB PO BID for 90 Days, #180 08/14/24 Hydroxyzine Hcl (Hydroxyzine Hcl) 25 Mg Tab, 1 TAB PO DAILY for 30 Days, #30 08/14/24 Linaclotide Base (LINZESS) 145 Mcg Cap, 1 CAP PO DAILY for 30 Days, #30 08/14/24 Nitroglycerin (NTROSTAT SUBLINGUAL) 0.4 Mg Sl, 0.4 MG SL PRN, TAB *MAY REPEAT EVERY 5 MINUTES X 3 TOTAL IF NO RELIEF, INITIATE ANALGESIC THERAPY. NOTIFY PHYSICIAN *Do not crush. 12/25/23 Home Meds Home medications reviewed. Current Medications Current Medications Medications (Trade) Dose Ordered Sig/Jorge Route PRN Reason Start Time Stop Time Status Last Admin Aspirin 81 mg DAILY PO 12/21/24 10:00 12/21/24 09:06 Metoprolol Tartrate (Lopressor Tablet) 50 mg BID PO 12/20/24 22:00 12/21/24 09:06 Amlodipine Besylate (Norvasc Tablet) 5 mg DAILY PO 12/21/24 10:00 12/21/24 09:18 DC 12/21/24 09:07 Clonidine HCl (Catapres Tablet) 0.2 mg Q6HP PRN PO SBP>160 12/20/24 19:15 12/20/24 23:59 Hydromorphone HCl (Dilaudid Injection) 0.5 mg Q4HPRN PRN IV SEVERE PAIN (7-10 PAIN SCALE) 12/20/24 19:15 12/21/24 09:18 Diagnostic Test (Pha) (Accu-Chek Comfort Curve T) 1 strip IQ4HR 12/20/24 20:00 12/21/24 08:00 Insulin Human Regular (InsuLIN R) IQ4HR SC 12/20/24 20:00 12/21/24 09:12 Dextrose 50 ml UD PRN IV Blood Sugar LESS THAN 60 12/20/24 19:15 Sodium Chloride (Saline Lock Ns) 10 ml Q8HR IV 12/20/24 22:00 12/21/24 05:07 Acetaminophen/ Hydrocodone Bitart ([place]wich 5/325MG Tab) 1 tab Q4HP PRN PO MODERATE PAIN (4-6 PAIN SCALE) 12/20/24 19:15 12/21/24 01:09 Ondansetron HCl (Zofran) 4 mg Q4HP PRN IV NAUSEA / VOMITING 12/20/24 19:15 12/20/24 20:25 DC Docusate Sodium (Colace Capsule) 100 mg BIDPRN PRN PO FOR CONSTIPATION 12/20/24 19:15 Acetaminophen (Tylenol Tablet) 650 mg Q6HP PRN PO PAIN SCALE 1-3 OR TEMP>100.4 12/20/24 19:15 Nitroglycerin (Ntrostat Sublingual) 0.4 mg Q5MINP PRN SL FOR CHEST PAIN 12/20/24 20:00 Morphine Sulfate 2 mg Q30M PRN IV FOR CHEST PAIN 12/20/24 20:00 Metoclopramide HCl (Reglan Injection) 10 mg Q8HP PRN IV NAUSEA / VOMITING 12/20/24 20:30 Amlodipine Besylate (Norvasc Tablet) 10 mg DAILY PO 12/22/24 10:00 Review of Systems Constitutional: No symptom reported Ears, Nose, & Throat: No symptom reported Eyes: No symptom reported Neurological: No symptoms reported Pulmonary/Respiratory: No symptoms reported Cardiovascular: Chest pain Gastrointestinal: Abdominal pain Genitourinary: No symptom reported Musculoskeletal: No symptom reported Skin: No symptom reported Psychiatric: No symptom reported Endocrine: No symptom reported Hematologic/Lymphatic: No symptom reported Vital Signs Vital Signs Date Time Temp Pulse Resp B/P (MAP) Pulse Ox O2 Delivery O2 Flow Rate FiO2 12/21/24 09:18 101 18 160/107 12/21/24 08:58 98.9 95 98.9 12/21/24 04:00 Room Air* 0 21 Physical Exam General Appearance: Cooperative. Obese Pulmonary/Respiratory: Clear, bilateral breaths sounds. Cardiovascular/Chest: Regular rate and rhythm. Peripheral Pulses: 2+ Radial (R). 2+ Radial (L). 2+ Pedal (R). 2+ Pedal (L) Abdominal Exam: Normal bowel sounds. S Ankle Exam: Negative ankle edema Lower extremities: Negative lower extremity edema Neuro/Mental Status: A/OX4, coherent. Thoughts/Psych: Normal thought pattern. Appropriate mood and affect. Good judgment and insight. Appearance: No acute distress. Skin Exam: Normal inspection. Normal color. Warm and dry. Labs/Diagnostic Data Labs Test 12/21/24 09:35 12/21/24 09:04 12/20/24 19:12 12/20/24 16:26 Range/Units White Blood Count 8.2 4.4-10.8 10^3/uL Red Blood Count 4.61 4.5-5.90 10^6/uL Hemoglobin 14.3 13.5-17.5 g/dL Hematocrit 40.0 L 41.0-53.0 % Mean Corpuscular Volume 86.8 80.0-100.0 fL Mean Corpuscular Hemoglobin 31.1 28.0-32.0 pg Mean Corpuscular Hemoglobin Concent 35.8 32.0-36.0 g/dL Red Cell Distribution Width 14.7 H 11.8-14.3 % Platelet Count 255 140-450 10^3/uL Mean Platelet Volume 8.2 6.9-10.8 fL Neutrophils (%) (Auto) 68.7 37.0-80.0 % Lymphocytes (%) (Auto) 17.5 10.0-50.0 % Monocytes (%) (Auto) 11.2 0.0-12.0 % Eosinophils (%) (Auto) 1.9 0.0-7.0 % Basophils (%) (Auto) 0.7 0.0-2.0 % Neutrophils # (Auto) 5.6 1.6-8.6 10 ^3/uL Lymphocytes # (Auto) 1.4 0.4-5.4 10 ^3/uL Monocytes # (Auto) 0.9 0-1.3 10 ^3/uL Eosinophils # (Auto) 0.2 0-0.8 10 ^3/uL Basophils # (Auto) 0.1 0-0.2 10 ^3/uL Nucleated Red Blood Cells 0.0 % POC Glucose 225 H 70-106 mg/dl Troponin I High Sensitivity 12 </=54 ng/L B-Type Natriuretic Peptide 104.01 0-100 pg/mL Assessment Hypertensive urgency Chronic compensated HFrEF, NYHA class II Prolonged QTc interval Dyslipidemia Hypokalemia Type 2 diabetes mellitus History of methamphetamine use Obesity Plan/Recommendation We will continue with the following plan/recommendations (Dr. Banks): * Transthoracic echocardiogram from 12/03/24 reveals an EF of 32% * Continue guideline directed medical therapy for CHF as tolerated: Up-titrate doses for tighter BP control * Stop calcium channel blockers as this is contraindicated in patients with reduced ejection fraction * Consider oral hydralazine for tighter BP control if needed * Aggressive blood pressure control * Lipid-lowering agent * Monitor QT interval; avoid medications that prolong QT interval as this places patient at risk for torsades de pointes * Close cardiac surveillance Patient seen and examined at bedside with . The patient underwent a coronary angiogram with left heart catheterization on 12/27/2023 which revealed no significant coronary artery disease, but sluggish flow and mild to moderate disease of mid LAD was noted. The patient also recently underwent a nuclear stress test on 12/03/2024 which was negative for ischemia. Recommend aggressive BP control. There is no further in patient cardiac workup indicated at this time. Thank you for allowing us to care for this patient. Please call with any questions or concerns. Critical care time spent: 44 minutes This medical document was created using an electronic medical record system with voice recognition software and computerized dictation system. Although this document has been carefully reviewed, there might still be some phonetic and typographical errors. Occasional wrong-word or ``sound-alike substitutions may have occurred due to the inherent limitations of voice recognition software. These areas are purely typographical due to imperfections of the software programs and do not reflect any compromise in the patient's medical care. Please read the chart carefully and recognize, using context, where these substitutions have occurred. Plan discussed with: Patient NYHA Physical activity limitations: Class2(Slight)fatigue,sob (palpitatns, angina w activityv) Date of Service: Dec 21, 2024 Billing Provider: ETELVINA ORTIZ [facility] Cardiology Common Codes: [id number] INP/OBS CARE (High) Cardiology Consultation Codes: [id number] CONSULT <45MIN DAMASO BANKS MD 12/21/24 1349: Family History: FHx: multiple myeloma G8 MOTHER, Allergies: Coded Allergies: No Known Drug Allergy (Verified Allergy, Unknown, 12/24/23) Home Meds Active Scripts Hydrocodone-Acetaminophen (Hydrocodone Bitartrate/AC 5-325 mg) 1 Tab Tab, 1 TAB PO Q8HP PRN, #14 TAB Prov:GENIE MELENDEZ MD 12/05/24 Carvedilol (Carvedilol) 25 Mg Tab, 1 TAB PO BID, #60 TAB 5 Refills Prov:GENIE MELENDEZ MD 12/05/24 Empagliflozin (Jardiance) 10 Mg Tab, 10 MG PO DAILY, #30 TAB Prov:GENIE MELENDEZ MD 12/05/24 Trazodone Hcl (Trazodone Hcl) 50 Mg Tab, 1 TAB PO QHSP PRN for PSYCHOPHYSIOLOGIC INSOMNIA for 14 Days, #14 TAB Prov:GENIE MELENDEZ MD 12/05/24 Lisinopril (Lisinopril) 40 Mg Tab, 1 TAB PO DAILY, #30 TAB 1 Refill Prov:CAROLINA OVALLE MD 08/23/24 Duloxetine Hcl (Cymbalta) 20 Mg Cap, 1 CAP PO DAILY for 30 Days, #30 CAP Prov:ALE HARRIS RESIDENT 08/15/24 Insulin Glargine (Lantus) 100 Unit/Ml Inj, 35 UNITS SC BID@1000,2200 for 30 Days, #1 INJ Prov:CORRINE GRAHAM RESIDENT 12/28/23 Reported Medications Omeprazole (Gnp Omeprazole) 20 Mg Tab, 1 TAB PO DAILY, #90 TAB 1 Refill 12/02/24 Spironolactone (Spironolactone) 50 Mg Tab, 1 TAB PO DAILY, #30 TAB 5 Refills 12/02/24 Atorvastatin Calcium (Lipitor) 40 Mg Tab, 1 TAB PO DAILY, #30 TAB 5 Refills 12/02/24 Sildenafil Citrate (Sildenafil Citrate) 20 Mg Tab, 1 TAB PO DAILY for 30 Days, #30 09/24/24 Sucralfate (CARAFATE SUSP) 1 Gm/10 Ml Ss, 10 ML PO BID for 30 Days, #600 09/24/24 Senna (Senna-Time) 8.6 Mg Tab, 2 TAB PO DAILY for 30 Days, #60 09/24/24 Tirzepatide (Mounjaro) 7.5 Mg/0.5 Ml Inj, 7.5 MG SUBCUT QWEEKLY for 28 Days, #2 09/24/24 Ergocalciferol (Vitamin D) 50,000 Unit Cap, 1 CAP PO QWEEKLY for 28 Days, #4 09/24/24 Gabapentin (Gabapentin) 300 Mg Cap, 3 CAP PO TID for 30 Days, #270 09/24/24 Metoclopramide HCl (Metoclopramide Hydrochlor) 10 Mg Tab, 1 TAB PO TID for 30 Days, #90 09/24/24 Pantoprazole Sodium Sesquihydr (Pantoprazole Sodium) 40 Mg Tab, 1 TAB PO BID for 30 Days, #60 09/24/24 Polyethylene Glycol 3350 (Gnp Clearlax) 17 Gm/Scoop Pow, 17 GM PO DAILY for 30 Days, #510 09/24/24 Clonidine Hydrochloride (Clonidine Hcl) 0.1 Mg Tab, 1 TAB PO BIDPRN for 30 Days, #60 09/24/24 Insulin Lispro (Humalog Kwikpen) 100 Unit/Ml Inj, 25 UNITS SC AC for 40 Days, #30 08/14/24 Furosemide (Furosemide) 20 Mg Tab, 1 TAB PO BID for 90 Days, #180 08/14/24 Hydroxyzine Hcl (Hydroxyzine Hcl) 25 Mg Tab, 1 TAB PO DAILY for 30 Days, #30 08/14/24 Linaclotide Base (LINZESS) 145 Mcg Cap, 1 CAP PO DAILY for 30 Days, #30 08/14/24 Nitroglycerin (NTROSTAT SUBLINGUAL) 0.4 Mg Sl, 0.4 MG SL PRN, TAB *MAY REPEAT EVERY 5 MINUTES X 3 TOTAL IF NO RELIEF, INITIATE ANALGESIC THERAPY. NOTIFY PHYSICIAN *Do not crush. 12/25/23 Plan/Recommendation pt taking nsaids needs to stop reviewed previous LHC, cont GDMT Plan discussed with: Patient ANGELETELVINA Keyla BOCANEGRAP Dec 21, 2024 10:44 DAMASO BANKS MD Dec 21, 2024 13:49
[2024-12-21] MEDS: SPIRONOLACTONE 25 MG TAB PO ONE (11:11)
[2024-12-21] MEDS: hydrALAZINE HCL 20 MG/ML VL IV PRN (11:13)
--- NOTE | 2024-12-21 11:20 | DVHPN2 ---
Subjective 49-year-old male with a history of hypertension, coronary artery disease, type 2 diabetes, mixed hyperlipidemia came to the hospital due to elevated blood pressure after he went to his primary care physician and was found to have extremely high blood pressure He says he had headache and blurred vision and numbness in his legs associated with slurred speech and low energy for a while He says at home he checks his blood pressure sometimes is very high sometimes is not He says he has been taking his medications and his primary care physician has been adjusting his doses frequently On admission his blood pressure was 216/158 Latest blood pressure this morning was 160/107 At home he says he was taking carvedilol and lisinopril and some other medications but he is not sure Here he was on amlodipine 5 mg a day and metoprolol 50 mg twice a day Cardiology has seen the patient this morning and med adjustments by discontinuing the amlodipine and metoprolol Carvedilol 12.5 mg twice a day and lisinopril 40 mg daily and Aldactone 25 mg daily and Jardiance 10 mg daily were added Changes from previous H/P or p: Changes Eyes: No Pain, No Vision change, No Conjunctivae inflammation, No Eyelid inflammation, No Other, No Redness ENT: No Ear pain, No Ear discharge, No Nose pain, No Nose discharge, No Nose congestion, No Mouth pain, No Mouth swelling, No Throat pain, No Throat swelling, No Other Cardiovascular: Chest Pain; No Palpitations, No Orthopnea, No Paroxysmal Noc. Dyspnea, No Edema, No Lt Headedness; Other (Hypertension) Respiratory: No Cough, No Dry, No Shortness of breath, No SOB with excertion, No Wheezing, No Hemoptysis, No Pleuritic Pain, No Sputum, No Other Gastrointestinal: No Nausea, No Vomiting, No Abdominal Pain, No Diarrhea, No Constipation, No Melena, No Hematochezia, No Other Genitourinary: No Dysuria, No Frequency, No Incontinence, No Hematuria, No Retention, No Other Musculoskeletal: No other, No neck pain, No shoulder pain, No arm pain, No back pain, No hand pain, No leg pain, No foot pain Skin: No Rash, No Lesions, No Jaundice, No Bruising, No Other Objective Vitals Vital Signs Date Time Temp Pulse Resp B/P (MAP) Pulse Ox O2 Delivery O2 Flow Rate FiO2 12/21/24 09:18 101 18 160/107 12/21/24 08:58 98.9 95 98.9 12/21/24 04:00 Room Air* 0 21 Intake/Output Intake and Output 12/21/24 07:00 Intake Total 0 ml Balance 0 ml Intake Oral 0 ml General Appearance: Alert, Oriented X3, Cooperative, No acute distress Lungs: Clear to auscultation Cardiovascular: Regular rate, Normal S1, Normal S2 Abdomen: Normal bowel sounds, Soft, No tenderness Extremities: No edema Medications Current Medications Medications Dose Ordered Sig/Jorge Route Start Time Stop Time Status Last Admin Dose Admin Aspirin 81 mg DAILY PO 12/21/24 10:00 12/21/24 09:06 81 MG Clonidine HCl 0.2 mg Q6HP PRN PO 12/20/24 19:15 12/20/24 23:59 0.2 MG Hydromorphone HCl 0.5 mg Q4HPRN PRN IV 12/20/24 19:15 12/21/24 09:18 0.5 MG Diagnostic Test (Pha) 1 strip IQ4HR 12/20/24 20:00 12/21/24 08:00 1 STRIP Insulin Human Regular IQ4HR SC 12/20/24 20:00 12/21/24 09:12 6 UNITS Dextrose 50 ml UD PRN IV 12/20/24 19:15 Sodium Chloride 10 ml Q8HR IV 12/20/24 22:00 12/21/24 05:07 10 ML Acetaminophen/ Hydrocodone Bitart 1 tab Q4HP PRN PO 12/20/24 19:15 12/21/24 01:09 1 TAB Docusate Sodium 100 mg BIDPRN PRN PO 12/20/24 19:15 Acetaminophen 650 mg Q6HP PRN PO 12/20/24 19:15 Nitroglycerin 0.4 mg Q5MINP PRN SL 12/20/24 20:00 Morphine Sulfate 2 mg Q30M PRN IV 12/20/24 20:00 Metoclopramide HCl 10 mg Q8HP PRN IV 12/20/24 20:30 Carvedilol 12.5 mg Q12HR PO 12/21/24 22:00 Empaglifozin 10 mg DAILY PO 12/22/24 10:00 Lisinopril 40 mg DAILY PO 12/22/24 10:00 Spironolactone 25 mg DAILY PO 12/22/24 10:00 Hydralazine HCl 10 mg Q6HP PRN IV 12/21/24 11:00 Laboratory Results Laboratory Tests 12/21/24 09:35 Chemistry Test 12/20/24 16:26 12/21/24 09:35 Calcium Level 9.2 mg/dL (8.7-10.4) 8.8 mg/dL (8.7-10.4) Albumin 4.1 g/dL (3.2-4.8) Total Protein 7.0 g/dL (5.7-8.2) Cardiac Markers Test 12/20/24 16:26 B-Type Natriuretic Peptide 104.01 pg/mL (0-100) LFT Test 12/21/24 09:35 Alanine Aminotransferase (ALT) 32 U/L (7-40) Alkaline Phosphatase 85 U/L (46-116) Aspartate Amino Transferase (AST) 28 U/L (13-40) Total Bilirubin 0.8 mg/dL (0.2-1.0) Assessment/Plan Assessment/Plan Hypertensive emergency Uncontrolled hypertension Chest pain Chronic compensated heart failure with reduced ejection fraction ejection fraction 32% 2 weeks ago Prolonged QTC interval Mixed hyperlipidemia Hypokalemia Type 2 diabetes Obesity History of methamphetamine use Plan Resume his home medications lisinopril 40 mg daily and Coreg Cardiology consult on board Aspirin Clonidine p.r.n. Accu-Cheks Full code Advance directives discussed for [address] scan of the head no contrast due to the fact that the patient was complaining of slurred speech and headache numbness in his legsct head Plan discussed with: Patient Date of Service: Dec 21, 2024 Billing Provider: JOSÉ LEMON MD Common Visit Codes: [id number] INP/OBS CARE(HIGH) Secondary Visit Codes: [id number] CARE PLAN 30 MINUTES JOSÉ LEMON MD Dec 21, 2024 11:20
[2024-12-21] MEDS: ACCU-CHEK COMFORT CURVE STRIP VI SCH (11:22)
[2024-12-21] MEDS: InsuLIN REG 1unit/0.01ml Soln (100units/ml) SC SCH (11:22)
[2024-12-21] MEDS: POTASSIUM CHL 20 Meq TABLET PO ONE (12:14)
--- NOTE | 2024-12-21 12:43 | DVH ---
CLINICAL HISTORY: Headache TECHNIQUE: Helical scanning was performed of the head from the skull base to the vertex. Multiplanar reconstructions were performed. This exam was performed according to our departmental dose optimizat ion program. Up-to-date CT equipment and radiation dose reduction techniques are utilized as appropri ate. CTDI 62 DLP 992 COMPARISON: CT HEAD WITHOUT CONTRAST on DOS: 09/02/24 FINDINGS: There is no evidence for acute intracranial hemorrhage, acute ischemic changes, mass, mass effect, or extra-axial fluid collection. There is no hydrocephalus or midline shift. There is no effacement of the cerebral sulci and basal subarachnoid cisterns. The alas-white matter differentiation is well hermes ntained. The imaged paranasal sinuses are clear. IMPRESSION: NO ACUTE INTRACRANIAL ABNORMALITY SEEN.
[2024-12-21] MEDS: CARVEDILOL 12.5 MG TAB PO SCH (22:01)
[2024-12-22] VITALS (8 sets, daily range): BP systolic 125–173; BP diastolic 85–114; PULSE 95–119; RESP 16–19; TEMP 97.4–98.1; O2SAT 95–99
[2024-12-22] MEDS: METOCLOPRAMIDE HCL 5MG/ml INJ 2ml VIAL IV PRN (07:59)
[2024-12-22] MEDS: LISINOPRIL 20 MG TAB PO SCH (09:34)
[2024-12-22] MEDS: EMPAGLIFLOZIN 10 MG TAB PO SCH (09:34)
[2024-12-22] MEDS: SPIRONOLACTONE 25 MG TAB PO SCH (09:34)
--- NOTE | 2024-12-22 14:11 | DVHPN2 ---
Subjective No complaints Blood pressure is better CT scan of the head was negative Changes from previous H/P or p: Changes Eyes: No Pain, No Vision change, No Conjunctivae inflammation, No Eyelid inflammation, No Other, No Redness ENT: No Ear pain, No Ear discharge, No Nose pain, No Nose discharge, No Nose congestion, No Mouth pain, No Mouth swelling, No Throat pain, No Throat swelling, No Other Cardiovascular: Chest Pain; No Palpitations, No Orthopnea, No Paroxysmal Noc. Dyspnea, No Edema, No Lt Headedness; Other (Hypertension) Respiratory: No Cough, No Dry, No Shortness of breath, No SOB with excertion, No Wheezing, No Hemoptysis, No Pleuritic Pain, No Sputum, No Other Gastrointestinal: No Nausea, No Vomiting, No Abdominal Pain, No Diarrhea, No Constipation, No Melena, No Hematochezia, No Other Genitourinary: No Dysuria, No Frequency, No Incontinence, No Hematuria, No Retention, No Other Musculoskeletal: No other, No neck pain, No shoulder pain, No arm pain, No back pain, No hand pain, No leg pain, No foot pain Skin: No Rash, No Lesions, No Jaundice, No Bruising, No Other Objective Vitals Vital Signs Date Time Temp Pulse Resp B/P (MAP) Pulse Ox O2 Delivery O2 Flow Rate FiO2 12/22/24 12:33 98.1 105 18 125/85 (98) 97 98.1 12/22/24 08:00 Room Air* 0 21 Intake/Output Intake and Output 12/22/24 07:00 Intake Total 1440 ml Balance 1440 ml Intake Oral 1440 ml # Voids 6 General Appearance: Alert, Oriented X3, Cooperative, No acute distress Lungs: Clear to auscultation Cardiovascular: Regular rate, Normal S1, Normal S2 Abdomen: Normal bowel sounds, Soft, No tenderness Extremities: No edema Medications Current Medications Medications Dose Ordered Sig/Jorge Route Start Time Stop Time Status Last Admin Dose Admin Aspirin 81 mg DAILY PO 12/21/24 10:00 12/22/24 09:34 81 MG Clonidine HCl 0.2 mg Q6HP PRN PO 12/20/24 19:15 12/21/24 15:36 0.2 MG Hydromorphone HCl 0.5 mg Q4HPRN PRN IV 12/20/24 19:15 12/22/24 11:29 0.5 MG Dextrose 50 ml UD PRN IV 12/20/24 19:15 Sodium Chloride 10 ml Q8HR IV 12/20/24 22:00 12/22/24 05:58 10 ML Acetaminophen/ Hydrocodone Bitart 1 tab Q4HP PRN PO 12/20/24 19:15 12/22/24 09:42 1 TAB Docusate Sodium 100 mg BIDPRN PRN PO 12/20/24 19:15 Acetaminophen 650 mg Q6HP PRN PO 12/20/24 19:15 Nitroglycerin 0.4 mg Q5MINP PRN SL 12/20/24 20:00 Morphine Sulfate 2 mg Q30M PRN IV 12/20/24 20:00 Metoclopramide HCl 10 mg Q8HP PRN IV 12/20/24 20:30 12/22/24 07:59 10 MG Empaglifozin 10 mg DAILY PO 12/22/24 10:00 12/22/24 09:34 10 MG Lisinopril 40 mg DAILY PO 12/22/24 10:00 12/22/24 09:34 40 MG Spironolactone 25 mg DAILY PO 12/22/24 10:00 12/22/24 09:34 25 MG Hydralazine HCl 10 mg Q6HP PRN IV 12/21/24 11:00 12/22/24 09:33 10 MG Diagnostic Test (Pha) 1 strip ACHS 12/21/24 11:30 12/22/24 11:21 1 STRIP Insulin Human Regular ACHS SC 12/21/24 11:30 12/22/24 05:56 3 UNITS Carvedilol 25 mg Q12HR PO 12/22/24 22:00 Laboratory Results Laboratory Tests 12/21/24 09:35 Assessment/Plan Assessment/Plan Hypertensive emergency Uncontrolled hypertension Chest pain Chronic compensated heart failure with reduced ejection fraction ejection fraction 32% 2 weeks ago Prolonged QTC interval Mixed hyperlipidemia Hypokalemia Type 2 diabetes Obesity History of methamphetamine use Plan Resume his home medications lisinopril 40 mg daily and Coreg Cardiology consult on board Aspirin Clonidine p.r.n. Accu-Cheks Full code Advance directives discussed for [address] scan of the head no contrast due to the fact that the patient was complaining of slurred speech and headache numbness in his legsct head 12/22/2024: Continue current regiment with carvedilol Increase carvedilol to 25 mg twice a day Continue lisinopril 40 mg daily Hydralazine as needed Jardiance 10 mg daily P.r.n. clonidine Aspirin 81 mg a day Aldactone 25 mg daily Plan discussed with: Patient My Orders Orders - JOSÉ LEMON MD Procedure Category Date Status Time Carvedilol Tablet PHA 12/22/24 In Process (Coreg Tablet) 22:00 Date of Service: Dec 22, 2024 Billing Provider: JOSÉ LEMON MD Common Visit Codes: [id number] INP/OBS CARE(HIGH) JOSÉ LEMON MD Dec 22, 2024 14:11
[2024-12-22] MEDS: CARVEDILOL 12.5 MG TAB PO SCH (21:45)
[2024-12-23] VITALS (7 sets, daily range): BP systolic 117–160; BP diastolic 90–103; PULSE 100–107; RESP 16–20; TEMP 37.1; O2SAT 92–97
[2024-12-23] MEDS ORDERED: SPIR25TA PO (12:29)
[2024-12-23] MEDS ORDERED: LISI40TA16 PO (12:33)
[2024-12-23] MEDS ORDERED: CARV-217 PO (12:34)
[2024-12-23] MEDS ORDERED: AMLO1TAB23 PO (12:34)
--- NOTE | 2024-12-23 12:38 | DVHDS2 ---
Discharge Summary Date of Admission Dec 20, 2024 at 20:00 Date of Discharge: Dec 23, 2024 Labs/Diagnostic Data: Laboratory Results Test 12/23/24 11:58 12/21/24 09:35 12/20/24 19:12 12/20/24 16:26 POC Glucose 150 mg/dl (70-106) White Blood Count 8.2 10^3/uL (4.4-10.8) Red Blood Count 4.61 10^6/uL (4.5-5.90) Hemoglobin 14.3 g/dL (13.5-17.5) Hematocrit 40.0 % (41.0-53.0) Mean Corpuscular Volume 86.8 fL (80.0-100.0) Mean Corpuscular Hemoglobin 31.1 pg (28.0-32.0) Mean Corpuscular Hemoglobin Concent 35.8 g/dL (32.0-36.0) Red Cell Distribution Width 14.7 % (11.8-14.3) Platelet Count 255 10^3/uL (140-450) Mean Platelet Volume 8.2 fL (6.9-10.8) Neutrophils (%) (Auto) 68.7 % (37.0-80.0) Lymphocytes (%) (Auto) 17.5 % (10.0-50.0) Monocytes (%) (Auto) 11.2 % (0.0-12.0) Eosinophils (%) (Auto) 1.9 % (0.0-7.0) Basophils (%) (Auto) 0.7 % (0.0-2.0) Neutrophils # (Auto) 5.6 10 ^3/uL (1.6-8.6) Lymphocytes # (Auto) 1.4 10 ^3/uL (0.4-5.4) Monocytes # (Auto) 0.9 10 ^3/uL (0-1.3) Eosinophils # (Auto) 0.2 10 ^3/uL (0-0.8) Basophils # (Auto) 0.1 10 ^3/uL (0-0.2) Nucleated Red Blood Cells 0.0 % Sodium Level 140 mmol/L (136-145) Potassium Level 3.3 mmol/L (3.5-5.1) Chloride Level 101 mmol/L (98-107) Carbon Dioxide Level 28 mmol/L (20-31) Anion Gap 11 (5-15) Blood Urea Nitrogen 9 mg/dL (9-23) Creatinine 0.82 mg/dL (0.700-1.30) Glomerular Filtration Rate Calc 108 mL/min (>90) BUN/Creatinine Ratio 11.0 (10.0-20.0) Serum Glucose 187 mg/dL (74-106) Calcium Level 8.8 mg/dL (8.7-10.4) Total Bilirubin 0.8 mg/dL (0.2-1.0) Aspartate Amino Transferase (AST) 28 U/L (13-40) Alanine Aminotransferase (ALT) 32 U/L (7-40) Alkaline Phosphatase 85 U/L (46-116) Total Protein 7.0 g/dL (5.7-8.2) Albumin 4.1 g/dL (3.2-4.8) Troponin I High Sensitivity 12 ng/L (</=54) B-Type Natriuretic Peptide 104.01 pg/mL (0-100) Other Laboratory Tests 12/21/24 09:35 Brief Hx & Hospital Course: Final diagnosis: Hypertensive emergency Uncontrolled hypertension Chest pain Chronic compensated heart failure with reduced ejection fraction ejection fraction 32% 2 weeks ago Prolonged QTC interval Mixed hyperlipidemia Hypokalemia Type 2 diabetes Obesity History of methamphetamine use 49-year-old male was admitted for hypertensive emergency with slurred speech and chest pain and high blood pressure He was ruled out for myocardial infarction Cardiology has seen the patient and recommended to continue same home medications This morning his blood pressure was still high on Coreg and lisinopril and therefore we added amlodipine 10 mg daily He is stable for discharge Amlodipine 10 mg daily Coreg 25 mg b.i.d. Lisinopril 40 mg daily Aldactone 25 mg daily Jardiance 10 mg daily Follow up with his PCP as soon as possible Condition at Discharge: Stable Final Diagnosis/Problems List Hypertensive emergency Uncontrolled hypertension Chest pain Chronic compensated heart failure with reduced ejection fraction ejection fraction 32% 2 weeks ago Prolonged QTC interval Mixed hyperlipidemia Hypokalemia Type 2 diabetes Obesity History of methamphetamine use Discharge Disposition: Home SNF Discharge Will this Physician continue t: No Discharge Instruct/Medications Scheduled Amlodipine Besylate (Amlodipine Besylate), 1 TAB PO DAILY Atorvastatin Calcium (Lipitor), 1 TAB PO DAILY, (Reported) Carvedilol (Carvedilol), 1 TAB PO BID Carvedilol (Coreg), 1 TAB PO BID Clonidine Hydrochloride (Clonidine Hcl), 1 TAB PO BIDPRN, (Reported) Duloxetine Hcl (Cymbalta), 1 CAP PO DAILY Empagliflozin (Jardiance), 10 MG PO DAILY Ergocalciferol (Vitamin D), 1 CAP PO QWEEKLY, (Reported) Furosemide (Furosemide), 1 TAB PO BID, (Reported) Gabapentin (Gabapentin), 3 CAP PO TID, (Reported) Hydroxyzine Hcl (Hydroxyzine Hcl), 1 TAB PO DAILY, (Reported) Insulin Glargine (Lantus), 35 UNITS SC BID@1000,2200 Insulin Lispro (Humalog Kwikpen), 25 UNITS SC AC, (Reported) Linaclotide Base (Linzess), 1 CAP PO DAILY, (Reported) Lisinopril (Lisinopril), 1 TAB PO DAILY Lisinopril (Lisinopril), 1 TAB PO DAILY Metoclopramide HCl (Metoclopramide Hydrochlor), 1 TAB PO TID, (Reported) Nitroglycerin (Ntrostat Sublingual), 0.4 MG SL PRN, (Reported) Omeprazole (Gnp Omeprazole), 1 TAB PO DAILY, (Reported) Pantoprazole Sodium Sesquihydr (Pantoprazole Sodium), 1 TAB PO BID, (Reported) Polyethylene Glycol 3350 (Gnp Clearlax), 17 GM PO DAILY, (Reported) Senna (Senna-Time), 2 TAB PO DAILY, (Reported) Sildenafil Citrate (Sildenafil Citrate), 1 TAB PO DAILY, (Reported) Spironolactone (Spironolactone), 1 TAB PO DAILY, (Reported) Spironolactone (Aldactone), 25 MG PO DAILY Sucralfate (Carafate Susp), 10 ML PO BID, (Reported) Tirzepatide (Mounjaro), 7.5 MG SUBCUT QWEEKLY, (Reported) Scheduled PRN Hydrocodone-Acetaminophen (Hydrocodone Bitartrate/AC 5-325 mg), 1 TAB PO Q8HP PRN Trazodone Hcl (Trazodone Hcl), 1 TAB PO QHSP PRN for PSYCHOPHYSIOLOGIC INSOMNIA Discharge Statement: "Patient was advised to return to the ER or call 911 if any headaches, dizziness, shortness of breath, chest pain, abdominal pain, bleeding, fevers, or worsening of medical condition. Patient was counseled about treatment plan, medications, possible side effects, patientverbalized understanding. All questions were answered to the best of my ability. This discharge took greater then 30 minutes in planning, reviewing documentation, counseling the patient, and discussing with other team members." ASSESSMENT ASSESSMENT Assessment Date of Service: Dec 23, 2024 Billing Provider: JOSÉ LEMON MD Common Visit Codes: 96797-KRC/OBS DISCH DAY >30min JOSÉ LEMON MD Dec 23, 2024 12:38
[2024-12-23] MEDS ORDERED: EMPA1TAB PO (12:40)
[2024-12-23] MEDS ORDERED: HYDR-4902 PO (15:20)
== END 2024-12-23 16:26 | disposition home or self-care (01) | DRG 199 ==
LOC: ER 16:13 → OVERFLOW 20:00 → TELE-WESTW 12-21 03:15
PROVIDERS: ADMIT Internal Medicine Geriatric Medicine; ATTEND Internal Medicine Geriatric Medicine
DX: I16.1 Hypertensive emergency (principal); I50.22 Chronic systolic (congestive) heart failure; E11.65 Type 2 diabetes mellitus with hyperglycemia; I11.0 Hypertensive heart disease with heart failure; E66.9 Obesity, unspecified; E78.2 Mixed hyperlipidemia; E87.6 Hypokalemia; I25.10 Atherosclerotic heart disease of native coronary artery without angina pectoris; R94.31 Abnormal electrocardiogram [ECG] [EKG]; Z80.7 Family history of other malignant neoplasms of lymphoid, hematopoietic and related tissues; Z68.34 Body mass index [BMI] 34.0-34.9, adult; Z79.84 Long term (current) use of oral hypoglycemic drugs; Z79.899 Other long term (current) drug therapy
CPT/HCPCS: 36415; 70450; 71045; 71260; 74177; 80048; 80053; 82962; 83880; 84484; 85025; 93005; 96372; 96374; 96375; 99291; 99292; G0378; J1815; J2405

== ENCOUNTER 2025-01-03 16:15 | Inpatient (IN) | payer MEDICAID ==
[~2025-01-03] VITALS: Ht 170.2 cm; Wt 100.2 kg
[~2025-01-03 16:15] MED LIST changes: +AMLO1TAB23 PO; +CARV-217 PO; +SPIR25TA PO
[2025-01-03 17:00] LABS: Hematocrit 41.9 % (41.0-53.0); Hemoglobin 15.0 g/dL (13.5-17.5); Mean Corpuscular Hemoglobin 31.2 pg (28.0-32.0); Mean Corpuscular Volume 87.1 fL (80.0-100.0); Nucleated Red Blood Cells % 0.2 %
[2025-01-03 17:11] LABS: Chloride 105 mmol/L (98-107); Sodium 142 mmol/L (136-145)
[2025-01-03 17:12] LABS: Anion Gap 12 (5-15); Carbon Dioxide 25 mmol/L (20-31)
[2025-01-03 17:13] LABS: Calcium 9.3 mg/dL (8.7-10.4)
[2025-01-03 17:18] LABS: BUN/Creatinine Ratio 9.5 (10.0-20.0); Blood Urea Nitrogen 8 mg/dL (9-23); Glucose 186 mg/dL (74-106); Potassium 3.2 mmol/L (3.5-5.1)
--- NOTE | 2025-01-03 17:50 | DVH ---
EXAM: XY CHEST PORTABLE CLINICAL HISTORY: CP TECHNIQUE: Single AP view of the chest WID: COMPARISON: XY CHEST XRAY 1 VIEW on DOS: 12/20/24 FINDINGS: Lines and tubes: None Chest: The heart size and pulmonary vasculature is within normal limits. Calcified plaque projects Over the aortic arch. No pleural effusion, pneumothorax, or consolidation. The osseous structures are grossly intact. IMPRESSION: 1. No acute cardiopulmonary abnormality.
[2025-01-03] MEDS: METOPROLOL TARTRATE 1MG/1ML-5ML VIAL IV ONE (18:45)
[2025-01-03 19:24] LABS: Urine Protein, UAD TRACE (Negative)
--- NOTE | 2025-01-03 19:43 | ED.PDOC ---
HPI Comments 49-year-old male presents to the ER with a prior medical history of CAD, high lipids, GERD hot, CHF, hypertension, diabetes in his surgical history of chest pain. Patient reports on having had right-sided chest pain associated with high blood pressure since yesterday, as well as bilateral foot numbness. Patient has an abdominal infection. Patient notes that the chest pain radiates to the back. Patient's blood pressure was 190 systolic in triage. Denies any other symptoms at this time. Denies chills, fever, N/V/D, SOB. No other associated symptoms, modifiers, recent injuries or sick contacts present at this time. Chief Complaint: Chest Pain Time Seen by MD: 19:30 Primary Care Provider: ? Reviewed Notes: Nurses Notes, Medications, Allergies Allergies: Coded Allergies: No Known Drug Allergy (Verified Allergy, Unknown, 12/24/23) Home Meds Active Scripts Hydrocodone-Acetaminophen (Hydrocodone Bitartrate/AC 5-325 mg) 1 Tab Tab, 1 TAB PO Q6HP PRN, #15 TAB Prov:JOSÉ LEMON MD 12/23/24 Empagliflozin (Jardiance) 10 Mg Tab, 10 MG PO DAILY for 30 Days, #30 TAB 3 Refills Prov:JOSÉ LEMON MD 12/23/24 Amlodipine Besylate (Amlodipine Besylate) 10 Mg Tab, 1 TAB PO DAILY, #30 TAB 5 Refills Prov:JOSÉ LEMON MD 12/23/24 Carvedilol (Coreg) 25 Mg Tab, 1 TAB PO BID, #60 TAB 5 Refills Prov:JOSÉ LEMON MD 12/23/24 Lisinopril (Lisinopril) 40 Mg Tab, 1 TAB PO DAILY, #30 TAB 5 Refills Prov:JOSÉ LEMON MD 12/23/24 Spironolactone (Aldactone) 25 Mg Tab, 25 MG PO DAILY for 30 Days, #30 TAB 3 Refills Prov:JOSÉ LEMON MD 12/23/24 Hydrocodone-Acetaminophen (Hydrocodone Bitartrate/AC 5-325 mg) 1 Tab Tab, 1 TAB PO Q8HP PRN, #14 TAB Prov:GENIE MELENDEZ MD 12/05/24 Carvedilol (Carvedilol) 25 Mg Tab, 1 TAB PO BID, #60 TAB 5 Refills Prov:GENIE MELENDEZ MD 12/05/24 Empagliflozin (Jardiance) 10 Mg Tab, 10 MG PO DAILY, #30 TAB Prov:GENIE MELENDEZ MD 12/05/24 Trazodone Hcl (Trazodone Hcl) 50 Mg Tab, 1 TAB PO QHSP PRN for PSYCHOPHYSIOLOGIC INSOMNIA for 14 Days, #14 TAB Prov:GENIE MELENDEZ MD 12/05/24 Lisinopril (Lisinopril) 40 Mg Tab, 1 TAB PO DAILY, #30 TAB 1 Refill Prov:CAROLINA OVALLE MD 08/23/24 Duloxetine Hcl (Cymbalta) 20 Mg Cap, 1 CAP PO DAILY for 30 Days, #30 CAP Prov:LAE HARRIS 08/15/24 Insulin Glargine (Lantus) 100 Unit/Ml Inj, 35 UNITS SC BID@1000,2200 for 30 Days, #1 INJ Prov:CORRINE GRAHAM RESIDENT 12/28/23 Reported Medications Omeprazole (Gnp Omeprazole) 20 Mg Tab, 1 TAB PO DAILY, #90 TAB 1 Refill 12/02/24 Spironolactone (Spironolactone) 50 Mg Tab, 1 TAB PO DAILY, #30 TAB 5 Refills 12/02/24 Atorvastatin Calcium (Lipitor) 40 Mg Tab, 1 TAB PO DAILY, #30 TAB 5 Refills 12/02/24 Sildenafil Citrate (Sildenafil Citrate) 20 Mg Tab, 1 TAB PO DAILY for 30 Days, #30 09/24/24 Sucralfate (CARAFATE SUSP) 1 Gm/10 Ml Ss, 10 ML PO BID for 30 Days, #600 09/24/24 Senna (Senna-Time) 8.6 Mg Tab, 2 TAB PO DAILY for 30 Days, #60 09/24/24 Tirzepatide (Mounjaro) 7.5 Mg/0.5 Ml Inj, 7.5 MG SUBCUT QWEEKLY for 28 Days, #2 09/24/24 Ergocalciferol (Vitamin D) 50,000 Unit Cap, 1 CAP PO QWEEKLY for 28 Days, #4 09/24/24 Gabapentin (Gabapentin) 300 Mg Cap, 3 CAP PO TID for 30 Days, #270 09/24/24 Metoclopramide HCl (Metoclopramide Hydrochlor) 10 Mg Tab, 1 TAB PO TID for 30 Days, #90 09/24/24 Pantoprazole Sodium Sesquihydr (Pantoprazole Sodium) 40 Mg Tab, 1 TAB PO BID for 30 Days, #60 09/24/24 Polyethylene Glycol 3350 (Gnp Clearlax) 17 Gm/Scoop Pow, 17 GM PO DAILY for 30 Days, #510 09/24/24 Clonidine Hydrochloride (Clonidine Hcl) 0.1 Mg Tab, 1 TAB PO BIDPRN for 30 Days, #60 09/24/24 Insulin Lispro (Humalog Kwikpen) 100 Unit/Ml Inj, 25 UNITS SC AC for 40 Days, #30 08/14/24 Furosemide (Furosemide) 20 Mg Tab, 1 TAB PO BID for 90 Days, #180 08/14/24 Hydroxyzine Hcl (Hydroxyzine Hcl) 25 Mg Tab, 1 TAB PO DAILY for 30 Days, #30 08/14/24 Linaclotide Base (LINZESS) 145 Mcg Cap, 1 CAP PO DAILY for 30 Days, #30 08/14/24 Nitroglycerin (NTROSTAT SUBLINGUAL) 0.4 Mg Sl, 0.4 MG SL PRN, TAB *MAY REPEAT EVERY 5 MINUTES X 3 TOTAL IF NO RELIEF, INITIATE ANALGESIC THERAPY. NOTIFY PHYSICIAN *Do not crush. 12/25/23 Information Source: Patient Mode of Arrival: Ambulatory Severity: Moderate Timing: Hours Duration: Since onset, Hours Prehospital treatment: None Location: Chest (L) Radiation: Back Quality: Aching Onset: At Rest Cardiac Risk Factors: Hyperlipidemia, HTN, Diabetes PE Risk Factors: None History of: Similar pain in past Associated Signs and Symptoms: None Past Medical History PAST MEDICAL HISTORY: CAD, CHF, DM, GERD, High Lipids, HTN Surgical History: Denies all surgeries Family History Family History: Reviewed,noncontributory to illness, Unknown Social History Smoker: Non-Smoker Alcohol: Denies ETOH Use Drugs: Denies Drug Use Lives In: Home Constitutional: denies: chills, diaphoresis, fatigue, fever, malaise, sweats, weakness, others EENTM: denies: blurred vision, double vision, ear bleeding, ear discharge, ear drainage, ear pain, ear ringing, eye pain, eye redness, hearing loss, mouth pain, mouth swelling, nasal discharge, nose bleeding, nose congestion, nose pain, photophobia, tearing, throat pain, throat swelling, voice changes, others Respiratory: denies: cough, hemoptysis, orthopnea, SOB at rest, shortness of breath, SOB with excertion, stridor, wheezing, others Cardiovascular: reports: chest pain; denies: dizzy spells, diaphoresis, Dyspnea on exertion, edema, irregular heart beat, left arm pain, lightheadedness, palpitations, PND, syncope, others Gastrointestinal: denies: abdomen distended, abdominal pain, blood streaked bowels, constipated, diarrhea, dysphagia, difficulty swallowing, hematemesis, melena, nausea, poor appetite, poor fluid intake, rectal bleeding, rectal pain, vomiting, others Genitourinary: denies: burning, dysuria, flank pain, frequency, hematuria, incontinence, penile discharge, penile sore, pain, testicle pain, testicle s welling, urgency, others Neurological: denies: dizziness, fainting, headache, left sided numbness, left sided weakness, numbness, paresthesia, pre-existing deficit, right sided numbness, right sided weakness, seizure, speech problems, tingling, tremors, weakness, others Musculoskeletal: reports: back pain; denies: gout, joint pain, joint swelling, muscle pain, muscle stiffness, neck pain, others Integumetry: denies: bruises, change in color, change in hair/nails, dryness, laceration, lesions, lumps, rash, wounds, others Allergic/Immunocompromised: denies: Difficulty Healing, Frequent Infections, Hives, Itching, others Hematologic/Lymphatic: denies: anemia, blood clots, easy bleeding, easy bruising, swollen glands, others Endocrine: denies: excessive hunger, excessive sweating, excessive thirst, excessive urination, flushing, intolerance to cold, intolerance to heat, unexplained weight gain, unexplained weight loss, others Psychiatric: denies: anxiety, bipolar disorder, depression, hopeless, panic disorder, schizophrenia, sleepless, suicidal, others All Other Systems: Reviewed and Negative Physical Exam General Appearance: Moderate Distress, Normal HEENT: Normal ENT Inspection, PERRL/EOMI, Pharynx Normal, TMs Normal Neck: Full Range of Motion, Non-Tender, Normal, Normal Inspection Respiratory: Chest Non-Tender, Lungs Clear, No Accessory Muscle Use, No Respiratory Distress, Normal Breath Sounds Cardiovascular: No Edema, No JVD, No Murmur, No Gallop, Normal Peripheral Pulses, Regular Rate/Rhythm, Tachycardia Breast Exam: Deferred Gastrointestinal: No Organomegaly, Non Tender, No Pulsatile Mass, Normal Bowel Sounds, Soft Genitalia: Deferred Pelvic: Deferred Rectal: Deferred Extremities: No calf tenderness, Normal capillary refill, Normal inspection, Normal range of motion, Non-tender, No pedal edema Musculoskeletal : Apperance: Normal Neurologic: Alert, infrastructure administrator II-XII nml as Tested, No Motor Deficits, Normal Affect, Normal Mood, No Sensory Deficits Cerebellar Function: Normal Reflexes: Normal Skin: Dry, Normal Color, Warm Peripheral Pulses: 1+ carotid (R), 1+ carotid (L) Lymphatic: No Adenopathy EKG EKG : Pulse Rate (adult): 116 [place]: Normal Cardiac Rhythm: ST Block: None Hypertrophy: None ST: Normal Was a procedure done? Was a procedure done?: No CP Differential Dx Differential Diagnosis: A-fib, A-Flutter, Angina, Anxiety / Panic Attack, Electrolyte Disorder, Heart Failure, [place] Differential Diagnosis: CHF, HTN Accelerated Differential Diagnosis: Angina, Chest Wall Pain, Costochondritis, Esophageal reflux/spasm, Myocardial Infarction, Pneumonia X-Ray, Labs, Meds, VS Vital Signs Date Time Temp Pulse Resp B/P (MAP) Pulse Ox O2 Delivery O2 Flow Rate FiO2 01/03/25 21:09 119 19 214/141 (165) 98 01/03/25 21:06 119 19 214/141 01/03/25 20:42 106 19 100 Room Air* 0 21 01/03/25 20:42 106 19 206/141 01/03/25 20:42 99.0 106 100 206/141 (162) 100 99.0 01/03/25 20:41 206/141 01/03/25 19:44 116 01/03/25 19:23 106 01/03/25 18:21 192/123 01/03/25 18:21 98.5 121 18 192/123 (146) 97 98.5 01/03/25 17:21 113 01/03/25 16:51 187/125 01/03/25 16:21 98.2 120 15 192/130 99 98.2 Lab Test 01/03/25 19:08 01/03/25 17:16 01/03/25 16:53 01/03/25 16:32 Range/Units Troponin I High Sensitivity 10 10 10 </=54 ng/L Urine Color Yellow Yellow Urine Clarity Clear Clear Urine pH 6.0 5.0-9.0 Urine Specific [place] 1.027 1.001-1.035 Urine Protein Trace H Negative Urine Ketones Negative Negative Urine Blood Negative Negative /uL Urine Nitrite Negative Negative Urine Bilirubin Negative Negative Urine Urobilinogen Normal Negative mg/dL Urine Leukocyte Esterase Negative Negative /uL Urine RBC 1 0 - 3 /hpf Urine Microscopic WBC 11 H 0-3 /HPF Urine Squamous Epithelial Cells Few <5 /hpf Urine Bacteria None seen None Seen /hpf Urine Hyaline Casts Few 0 - 2 /lpf Urine Mucus Few None Seen Urine Glucose 1+ H Normal mg/dL White Blood Count 8.4 4.4-10.8 10^3/uL Red Blood Count 4.81 4.5-5.90 10^6/uL Hemoglobin 15.0 13.5-17.5 g/dL Hematocrit 41.9 41.0-53.0 % Mean Corpuscular Volume 87.1 80.0-100.0 fL Mean Corpuscular Hemoglobin 31.2 28.0-32.0 pg Mean Corpuscular Hemoglobin Concent 35.8 32.0-36.0 g/dL Red Cell Distribution Width 14.5 H 11.8-14.3 % Platelet Count 233 140-450 10^3/uL Mean Platelet Volume 8.2 6.9-10.8 fL Neutrophils (%) (Auto) 68.4 37.0-80.0 % Lymphocytes (%) (Auto) 21.5 10.0-50.0 % Monocytes (%) (Auto) 8.2 0.0-12.0 % Eosinophils (%) (Auto) 1.4 0.0-7.0 % Basophils (%) (Auto) 0.5 0.0-2.0 % Neutrophils # (Auto) 5.7 1.6-8.6 10 ^3/uL Lymphocytes # (Auto) 1.8 0.4-5.4 10 ^3/uL Monocytes # (Auto) 0.7 0-1.3 10 ^3/uL Eosinophils # (Auto) 0.1 0-0.8 10 ^3/uL Basophils # (Auto) 0 0-0.2 10 ^3/uL Nucleated Red Blood Cells 0.2 % Sodium Level 142 136-145 mmol/L Potassium Level 3.2 L 3.5-5.1 mmol/L Chloride Level 105 98-107 mmol/L Carbon Dioxide Level 25 20-31 mmol/L Anion Gap 12 5-15 Blood Urea Nitrogen 8 L 9-23 mg/dL Creatinine 0.84 0.700-1.30 mg/dL Glomerular Filtration Rate Calc 107 >90 mL/min BUN/Creatinine Ratio 9.5 L 10.0-20.0 Serum Glucose 186 H 74-106 mg/dL Calcium Level 9.3 8.7-10.4 mg/dL Current Medications Medications (Trade) Dose Ordered Sig/Jorge Route Start Time Stop Time Status Last Admin Clonidine HCl (Catapres Tablet) 0.2 mg ONCE ONCE PO 01/03/25 16:30 01/03/25 16:31 DC 01/03/25 16:51 Hydralazine HCl (Apresoline Injection) 10 mg ONCE ONCE IV 01/03/25 18:30 01/03/25 18:31 DC 01/03/25 20:41 Morphine Sulfate 3 mg ONCE ONCE IV 01/03/25 19:30 01/03/25 19:31 DC 01/03/25 20:42 X-Ray, Labs, Meds, VS Comment Course in the emergency department eventful patient came in because of chest pain and hypertension her blood pressure is 192/130 The chest x-ray is normal EKG shows sinus tachycardia at 1:13 a.m. with a left ventricular hypertrophy CBC normal Urine negative Potassium at 3.2 Blood sugar 186 Troponin 10 and 10 Time of 1ST Reevaluation: 20:00 Reevaluation 1ST: Unchanged Time of 2ND Reevaluation: 21:25 Reevaluation 2ND: Unchanged Patient Education/Counseling: Diagnosis, Treatment, Prognosis Family Education/Counseling: Diagnosis, Treatment, Prognosis, No Family Present SEPSIS Sepsis Screen Date sepsis recognized/suspect: Jan 03, 2025 Time Sepsis recognized/suspect: 1617 Recent Procedure: No On Antibiotic Therapy: No Respiratory Rate >20: No Heart Rate >90: Yes Temp<36 C (96.8 F) or >38.3 C: No SBP <90 or MAP <65 mmHG: No New Acute Mental Status Change: No Is the patient on CPAP, BIPAP,: No Physician Orders Chest Portable (01/03/25 16:30) Electrocardigram (01/03/25 16:20) Electrocardigram (01/03/25 17:20) Electrocardigram (01/03/25 19:20) Nicardipine 20mg/200ml (Cardene Iv) (01/03/25 21:30) Vital Signs Date Time Temp Pulse Resp B/P (MAP) Pulse Ox O2 Delivery O2 Flow Rate FiO2 01/03/25 21:09 119 19 214/141 (165) 98 01/03/25 21:06 119 19 214/141 01/03/25 20:42 106 19 100 Room Air* 0 21 01/03/25 20:42 106 19 206/141 01/03/25 20:42 99.0 106 100 206/141 (162) 100 99.0 01/03/25 20:41 206/141 01/03/25 19:44 116 01/03/25 19:23 106 01/03/25 18:21 192/123 01/03/25 18:21 98.5 121 18 192/123 (146) 97 98.5 01/03/25 17:21 113 01/03/25 16:51 187/125 01/03/25 16:21 98.2 120 15 192/130 99 98.2 Laboratory Tests Test 01/03/25 16:32 White Blood Count 8.4 10^3/uL (4.4-10.8) Medications Medications Dose Ordered Sig/Jorge Route Start Time Stop Time Status Last Admin Dose Admin Clonidine HCl 0.2 mg ONCE ONCE PO 01/03/25 16:30 01/03/25 16:31 DC 01/03/25 16:51 Hydralazine HCl 10 mg ONCE ONCE IV 01/03/25 18:30 01/03/25 18:31 DC 01/03/25 20:41 Morphine Sulfate 3 mg ONCE ONCE IV 01/03/25 19:30 01/03/25 19:31 DC 01/03/25 20:42 Departure 1 Departure Time of Disposition: 21:50 Impression: Primary Impression: Accelerated hypertension Additional Impressions: Diabetes mellitus with hyperglycemia Qualified Codes: E11.65 - Type 2 diabetes mellitus with hyperglycemia; 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 Electronically submitted by Abelardo Angeles ([employer]). I personally scribed for MARYANA CALIX MD ([email or web address]) on 01/03/25 at 19:44. Electronically submitted by Abelardo Angeles ([employer]). MARYANA CALIX MD Jan 03, 2025 19:43
[2025-01-03] MEDS: hydrALAZINE HCL 20 MG/ML VL IV ONE (20:41)
[2025-01-03 20:42] VITALS: PULSE 106; RESP 19; O2SAT 100
[2025-01-03] MEDS: MORPHINE SULFATE 4 MG/ML SYR/VIAL IV ONE (20:42)
[2025-01-03] MEDS: POTASSIUM EFFERVESENT TAB 25 MEQ PO ONE (21:15)
[2025-01-03] MEDS ORDERED: DEXTROSE (50%) 50ML SYRG IV PRN (22:15)
[2025-01-03] MEDS ORDERED: DOCUSATE SOD 100 MG CAP PO PRN (22:15)
[2025-01-03] MEDS ORDERED: ACETAMINOPHEN 325 MG TAB PO PRN (22:15)
[2025-01-03] MEDS ORDERED: ONDANSETRON HCL 4 MG/2 ML VIAL IV PRN (22:15)
--- NOTE | 2025-01-03 22:47 | DVHHP2 ---
History of Present Illness Reason for Visit: Hypertensive emergency History of Present Illness The patient is a 49-year-old male with past medical history of Coronary artery disease, CHF, diabetes mellitus, GERD, hyperlipidemia, and hypertension who presented to [facility] ED with complaint of chest pain. Patient reports that he has been experiencing right-sided chest pain, radiating to his back, associated with high blood pressure, bilateral foot numbness for the past 1 day. Patient was seen and evaluated in the ED, laboratory data shows WBC 8.4, platelets 233, sodium 142, potassium 3.2, BUN 8, creatinine 0.84, GFR 107, glucose 186, calcium 9.3, troponin 10, BNP 95.62, blood pressure 214/141 trending down to 129/81, heart rate 119 trending down to 104, temperature 99.0 F, O2 saturation 98% on room air. Chest x-ray show no acute cardiopulmonary abnormality. Please see medication orders section in the computer. On my assessment, patient denied chest pain at this moment, no headache, dizziness, diaphoresis, shortness of breaths, no abdominal pain, diarrhea, nausea, vo miting, fever, no chills. Patient was admitted for further evaluation and medical management. Past Medical History CAD, CHF, DM, GERD, High Lipids, HTN Past Surgical History Denies all surgeries Family History Reviewed, noncontributory to the management of this case. Past Social History The patient lives at home, denies smoking, alcohol or illicit drugs abuse. Review of Systems Constitutional: Yes: Weakness; No: Fever, Chills, Sweats, Malaise, Other Eyes: No: Pain, Vision change, Conjunctivae inflammation, Eyelid inflammation, Other, Redness ENT: No: Ear pain, Ear discharge, Nose pain, Nose discharge, Nose congestion, Mouth pain, Mouth swelling, Throat pain, Throat swelling, Other Respiratory: No: Cough, Dry, Shortness of breath, SOB with excertion, Wheezing, Hemoptysis, Pleuritic Pain, Sputum, Wheezing, Other Cardiovascular: Chest Pain; No: Palpitations, Orthopnea, Paroxysmal Noc. Dyspnea, Edema, Lt Headedness, Other Gastrointestinal: No: Nausea, Vomiting, Abdominal Pain, Diarrhea, Constipation, Melena, Hematochezia, Other Genitourinary: No Dysuria, No Frequency, No Incontinence, No Hematuria, No Retention, No Other Musculoskeletal: back pain; No: other, neck pain, shoulder pain, arm pain, hand pain, leg pain, foot pain Skin: No: Rash, Lesions, Jaundice, Bruising, Other Neurological: Numbness; No: Weakness, Incoordination, Change in speech, Confusion, Seizures, Other Allergies: Coded Allergies: No Known Drug Allergy (Verified Allergy, Unknown, 12/24/23) Medications Current Medications Medications Dose Ordered Sig/Jorge Route Start Time Stop Time Status Last Admin Dose Admin Nicardipine/ Sodium Chloride 200 ml @ 50 mls/hr Q4H IV 01/03/25 21:30 Clonidine HCl 0.2 mg Q6HP PRN PO 01/03/25 22:15 Atorvastatin Calcium 40 mg HS PO 01/04/25 22:00 Metoprolol Tartrate 50 mg BID PO 01/04/25 10:00 Amlodipine Besylate 10 mg DAILY PO 01/04/25 10:00 Diagnostic Test (Pha) 1 strip IQ4HR 01/04/25 00:00 Insulin Human Regular IQ4HR SC 01/04/25 00:00 Dextrose 50 ml UD PRN IV 01/03/25 22:15 Sodium Chloride 10 ml Q8HR IV 01/04/25 06:00 Acetaminophen/ Hydrocodone Bitart 1 tab Q4HP PRN PO 01/03/25 22:15 Ondansetron HCl 4 mg Q4HP PRN IV 01/03/25 22:15 Docusate Sodium 100 mg BIDPRN PRN PO 01/03/25 22:15 Acetaminophen 650 mg Q6HP PRN PO 01/03/25 22:15 Famotidine 20 mg DAILY IV 01/04/25 10:00 Exam Vital Signs Vital Signs Date Time Temp Pulse Resp B/P (MAP) Pulse Ox O2 Delivery O2 Flow Rate FiO2 01/03/25 21:09 119 19 214/141 (165) 98 01/03/25 20:42 Room Air* 0 21 01/03/25 20:42 99.0 99.0 General Appearance: Alert, Oriented X3, Cooperative, No acute distress HEENT: Atraumatic, PERRLA, EOMI, Mucous membr. moist/pink Respiratory: Normal air movement Cardiovascular: Regular rate, Normal S1, Normal S2, No murmurs Abdominal: Normal bowel sounds, Soft, No tenderness, No hepatospenomegaly, No masses Extremities: No clubbing, No cyanosis, No edema, Normal pulses, No tenderness/swelling Skin: No rashes, No significant lesion Neuro: Normal speech, Normal tone, Sensation intact, Cranial nerves 3-12 NL, Reflexes 2+, Other (Generalized weakness) Psych/Mental Status: Mental status NL, Mood NL Labs/Xrays Labs Test 01/03/25 19:08 01/03/25 16:53 01/03/25 16:32 Range/Units Troponin I High Sensitivity 10 </=54 ng/L Urine Color Yellow Yellow Urine Clarity Clear Clear Urine pH 6.0 5.0-9.0 Urine Specific [place] 1.027 1.001-1.035 Urine Protein Trace H Negative Urine Ketones Negative Negative Urine Blood Negative Negative /uL Urine Nitrite Negative Negative Urine Bilirubin Negative Negative Urine Urobilinogen Normal Negative mg/dL Urine Leukocyte Esterase Negative Negative /uL Urine RBC 1 0 - 3 /hpf Urine Microscopic WBC 11 H 0-3 /HPF Urine Squamous Epithelial Cells Few <5 /hpf Urine Bacteria None seen None Seen /hpf Urine Hyaline Casts Few 0 - 2 /lpf Urine Mucus Few None Seen Urine Glucose 1+ H Normal mg/dL White Blood Count 8.4 4.4-10.8 10^3/uL Red Blood Count 4.81 4.5-5.90 10^6/uL Hemoglobin 15.0 13.5-17.5 g/dL Hematocrit 41.9 41.0-53.0 % Mean Corpuscular Volume 87.1 80.0-100.0 fL Mean Corpuscular Hemoglobin 31.2 28.0-32.0 pg Mean Corpuscular Hemoglobin Concent 35.8 32.0-36.0 g/dL Red Cell Distribution Width 14.5 H 11.8-14.3 % Platelet Count 233 140-450 10^3/uL Mean Platelet Volume 8.2 6.9-10.8 fL Neutrophils (%) (Auto) 68.4 37.0-80.0 % Lymphocytes (%) (Auto) 21.5 10.0-50.0 % Monocytes (%) (Auto) 8.2 0.0-12.0 % Eosinophils (%) (Auto) 1.4 0.0-7.0 % Basophils (%) (Auto) 0.5 0.0-2.0 % Neutrophils # (Auto) 5.7 1.6-8.6 10 ^3/uL Lymphocytes # (Auto) 1.8 0.4-5.4 10 ^3/uL Monocytes # (Auto) 0.7 0-1.3 10 ^3/uL Eosinophils # (Auto) 0.1 0-0.8 10 ^3/uL Basophils # (Auto) 0 0-0.2 10 ^3/uL Nucleated Red Blood Cells 0.2 % Sodium Level 142 136-145 mmol/L Potassium Level 3.2 L 3.5-5.1 mmol/L Chloride Level 105 98-107 mmol/L Carbon Dioxide Level 25 20-31 mmol/L Anion Gap 12 5-15 Blood Urea Nitrogen 8 L 9-23 mg/dL Creatinine 0.84 0.700-1.30 mg/dL Glomerular Filtration Rate Calc 107 >90 mL/min BUN/Creatinine Ratio 9.5 L 10.0-20.0 Serum Glucose 186 H 74-106 mg/dL Calcium Level 9.3 8.7-10.4 mg/dL PATIENT: EULOGIO LAUGHLIN JR ACCT: [id number] UNIT: [id number] : 1975 LOC: ER ROOM / BED: / AGE / SEX: 49 / M ADM STATUS: REG ER SERVICE 1630 ORDERING PHYSICIAN: MARYANA CALIX MD PROCEDURE(s): CXRP - CHEST PORTABLE REASON: CP ORDER NUMBER(s): [id number], ACCESSION NUMBER(s): [id number] EXAM: XY CHEST PORTABLE CLINICAL HISTORY: CP TECHNIQUE: Single AP view of the chest WID: COMPARISON: XY CHEST XRAY 1 VIEW on DOS: 12/20/24 FINDINGS: Lines and tubes: None Chest: The heart size and pulmonary vasculature is within normal limits. Calcified plaque projects Over the aortic arch. No pleural effusion, pneumothorax, or consolidation. The osseous structures are grossly intact. IMPRESSION: 1. No acute cardiopulmonary abnormality. SEPSIS Sepsis Screen Date sepsis recognized/suspect: Jan 03, 2025 Time Sepsis recognized/suspect: 2041 Recent Procedure: No On Antibiotic Therapy: No Respiratory Rate >20: No Heart Rate >90: Yes Temp<36 C (96.8 F) or >38.3 C: No SBP <90 or MAP <65 mmHG: No New Acute Mental Status Change: No Is the patient on CPAP, BIPAP,: No Physician Orders Chest Portable (01/03/25 16:30) Electrocardigram (01/03/25 16:20) Electrocardigram (01/03/25 17:20) Electrocardigram (01/03/25 19:20) Nicardipine 20mg/200ml (Cardene Iv) (01/03/25 21:30) * Cardiology Consult (01/03/25 22:09) Clonidine Hcl Tablet (Catapres Tablet) (01/03/25 22:15) Atorvastatin (Lipitor) (01/04/25 22:00) B-Type Natriuretic Peptide (01/03/25 22:09) Metoprolol Tartrate Tablet (Lopressor Ta (01/04/25 10:00) Amlodipine Tablet (Norvasc Tablet) (01/04/25 10:00) Consistent Carb(Ccho)Diabetes (01/04/25 Breakfast) Glucose Blood (Accu-Chek Comfort Curve T (01/04/25 00:00) Insulin R (Human) (Insulin R) (01/04/25 00:00) Dextrose 50% Syringe (01/03/25 22:15) Allergies (01/03/25 22:09) Code Status (01/03/25 22:09) Sodium Chloride Lock (Saline Lock Ns) (01/04/25 06:00) Oxygen Per Hour (01/03/25 22:09) Hydrocodone-Acet 5/325mg Tab ([place] 5/32 (01/03/25 22:15) Ondansetron Hcl (Zofran) (01/03/25 22:15) Docusate Sodium Capsule (Colace Capsule) (01/03/25 22:15) Complete Blood Count (01/04/25 04:00) Comprehensive Metabolic Panel (01/04/25 04:00) Condition: Serious (01/03/25 22:09) Acetaminophen Tablet (Tylenol Tablet) (01/03/25 22:15) Bedrest With Bathroom Privileg (01/03/25 22:09) Maintain Bed Rest (01/03/25 22:09) Sequential Compression Device (01/03/25 ) Famotidine Injection (Pepcid Injection) (01/04/25 10:00) Vital Signs Date Time Temp Pulse Resp B/P (MAP) Pulse Ox O2 Delivery O2 Flow Rate FiO2 01/03/25 21:09 119 19 214/141 (165) 98 01/03/25 21:06 119 19 214/141 01/03/25 20:42 106 19 100 Room Air* 0 21 01/03/25 20:42 106 19 206/141 01/03/25 20:42 99.0 106 100 206/141 (162) 100 99.0 01/03/25 20:41 206/141 01/03/25 19:44 116 01/03/25 19:23 106 01/03/25 18:21 192/123 01/03/25 18:21 98.5 121 18 192/123 (146) 97 98.5 01/03/25 17:21 113 01/03/25 16:51 187/125 01/03/25 16:21 98.2 120 15 192/130 99 98.2 Laboratory Tests Test 01/03/25 16:32 White Blood Count 8.4 10^3/uL (4.4-10.8) Medications Medications Dose Ordered Sig/Jorge Route Start Time Stop Time Status Last Admin Dose Admin Clonidine HCl 0.2 mg ONCE ONCE PO 01/03/25 16:30 01/03/25 16:31 DC 01/03/25 16:51 0.2 MG Hydralazine HCl 10 mg ONCE ONCE IV 01/03/25 18:30 01/03/25 18:31 DC 01/03/25 20:41 10 MG Morphine Sulfate 3 mg ONCE ONCE IV 01/03/25 19:30 01/03/25 19:31 DC 01/03/25 20:42 3 MG Assessment/Plan Assessment/Plan Accelerated hypertension Acute chest pain Hypokalemia Diabetes mellitus with hyperglycemia Other forms of angina pectoris Plan 1. Admit to telemetry unit 2. Breathing treatment 3. Pain control management 4. Management of fluids and electrolytes 5. Consultation for Cardiology 6. Diagnostic tests chest x-ray 7. DVT prophylaxis-on SCDs 8. Repeat labs CBC, CMP in a.m. 9. Continue with current medical management 10. Treatment plan discussed with patient and RN. Patient verbalized understanding. Plan discussed with: Patient, Other (RN) My Orders Orders - ILIANA KEITH DNP Procedure Category Date Status Time * Cardiology Consult CONS 01/03/25 Transmitted 22:09 Clonidine Hcl Tablet PHA 01/03/25 In Process (Catapres Tablet) 22:15 Atorvastatin (Lipitor) PHA 01/04/25 In Process 22:00 B-Type Natriuretic LAB 01/03/25 In Process Peptide 22:09 Metoprolol Tartrate PHA 01/04/25 In Process Tablet (Lopressor Ta 10:00 Amlodipine Tablet PHA 01/04/25 In Process (Norvasc Tablet) 10:00 Consistent DIET 01/04/25 Transmitted Carb(Ccho)Diabetes Breakfast Glucose Blood PHA 01/04/25 In Process (Accu-Chek Comfort 00:00 Insulin R (Human) PHA 01/04/25 In Process (Insulin R) 00:00 Dextrose 50% Syringe PHA 01/03/25 In Process 22:15 Allergies JASWANT 01/03/25 In Process 22:09 Code Status CODE 01/03/25 Transmitted 22:09 Sodium Chloride Lock PHA 01/04/25 In Process (Saline Lock Ns) 06:00 Oxygen Per Hour RT 01/03/25 Transmitted 22:09 Hydrocodone-Acet PHA 01/03/25 In Process 5/325mg Tab ([place] 22:15 Ondansetron Hcl PHA 01/03/25 In Process (Zofran) 22:15 Docusate Sodium PHA 01/03/25 In Process Capsule (Colace 22:15 Complete Blood Count LAB 01/04/25 Verified 04:00 Comprehensive LAB 01/04/25 Verified Metabolic Panel 04:00 Condition: Serious JASWANT 01/03/25 In Process 22:09 Acetaminophen Tablet PHA 01/03/25 In Process (Tylenol Tablet) 22:15 Bedrest With Bathroom JASWANT 01/03/25 In Process Privileg 22:09 Maintain Bed Rest JASWANT 01/03/25 In Process 22:09 Sequential JASWANT 01/03/25 In Process Compression Device Famotidine Injection PHA 01/04/25 In Process (Pepcid Injection) 10:00 Problem List: (1) Accelerated hypertension (2) Acute chest pain (3) Hypokalemia (4) Diabetes mellitus with hyperglycemia (5) Other forms of angina pectoris Date of Service: Jan 03, 2025 Billing Provider: ILIANA KEITH DNP Common Visit Codes: [id number] INP/OBS CARE (HIGH) ILIANA KEITH DNP Jan 03, 2025 22:47
[2025-01-03] MEDS ORDERED: NITROGLYCERIN 0.4 MG SL TAB SL PRN (23:00)
[2025-01-04] MEDS: LABETALOL HCL 20 MG/4 ML VL IV ONE (00:11)
[2025-01-04] MEDS: MORPHINE SULFATE INJ 2 MG/ml SYRG IV PRN (00:58)
[2025-01-04 03:10] LABS: Alanine Aminotransferase 25 U/L (7-40); Albumin 4.3 g/dL (3.2-4.8); Alkaline Phosphatase 80 U/L (46-116); Anion Gap 12 (5-15); BUN/Creatinine Ratio 8.1 (10.0-20.0); Calcium 9.2 mg/dL (8.7-10.4); Carbon Dioxide 26 mmol/L (20-31); Chloride 103 mmol/L (98-107); Sodium 141 mmol/L (136-145); Total Protein 7.3 g/dL (5.7-8.2)
[2025-01-04 03:11] LABS: Bilirubin, Total 0.7 mg/dL (0.2-1.0)
[2025-01-04 03:13] LABS: Hematocrit 42.6 % (41.0-53.0); Hemoglobin 15.2 g/dL (13.5-17.5); Mean Corpuscular Hemoglobin 31.2 pg (28.0-32.0); Mean Corpuscular Volume 87.4 fL (80.0-100.0); Nucleated Red Blood Cells % 0.1 %
[2025-01-04 03:15] LABS: Blood Urea Nitrogen 6 mg/dL (9-23); Glucose 176 mg/dL (74-106); Potassium 3.5 mmol/L (3.5-5.1)
[2025-01-04] MEDS: LIDOCAINE 5% TOPICAL PATCH TOP ONE (03:37)
[2025-01-04 04:00] VITALS: BP 141/93; PULSE 105; RESP 12; O2SAT 97
[2025-01-04] MEDS ORDERED: MORPHINE SULFATE INJ 2 MG/ml SYRG IM ONE (04:30)
[2025-01-04] MEDS: MORPHINE SULFATE INJ 2 MG/ml SYRG IV ONE ×2 (04:47→21:34)
[2025-01-04] MEDS ORDERED: LABETALOL HCL 20 MG/4 ML VL IV PRN (05:00)
[2025-01-04] MEDS: SODIUM CHLOR 0.9% PF (SALINE LOCK) 10ML VIAL/SYR IV SCH (05:42)
[2025-01-04] MEDS: HYDROcodone-ACET 5/325MG TAB PO PRN (06:13)
--- NOTE | 2025-01-04 06:36 | ECG ---
[facility] Test Date: 2025-01-03 Test Time: 19:23:12 Pat Name: EULOGIO LAUGHLIN Department: Room: 0293T Gender: M Payroll Technician: ADDIE : 1975 Requested By: MARYANA CALIX Order Number: [id number] Reading MD: Edouard Cifuentes Measurements Intervals [place] Rate: 106 P: 60 SC: 188 QRS: -10 QRSD: 118 T: -33 QT: 371 QTc: 493 Interpretive Statements Sinus tachycardia Consider right atrial enlargement Probable left ventricular hypertrophy Inferior infarct, age indeterminate Electronically Signed On 01-06-2025 10:56:43 PST by Edouard Cifuentes Please click the below link to view image of tracing.
--- NOTE | 2025-01-04 07:05 | ECG ---
[facility] Test Date: 2025-01-03 Test Time: 17:19:25 Pat Name: EULOGIO LAUGHLIN Department: Room: 0293T Gender: M Automation Test Developer: JONATHAN : 1975 Requested By: MARYANA CALIX Order Number: [id number] Reading MD: Edouard Cifuentes Measurements Intervals [place] Rate: 113 P: 41 DC: 171 QRS: -15 QRSD: 120 T: -13 QT: 355 QTc: 487 Interpretive Statements Sinus tachycardia Left ventricular hypertrophy Inferior infarct, age indeterminate Electronically Signed On 01-06-2025 10:56:30 PST by Edouard Cifuentes Please click the below link to view image of tracing.
[2025-01-04 08:00] VITALS: PULSE 102; RESP 16; O2SAT 99
[2025-01-04] MEDS ORDERED: DEXTROSE (50%) 50ML SYRG IV PRN (08:30)
[2025-01-04] MEDS: FAMOTIDINE (10MG/ML) 2ML VL IV SCH (10:38)
[2025-01-04] MEDS: METOPROLOL TARTRATE 50 MG TAB PO SCH (10:39)
[2025-01-04] MEDS: ACCU-CHEK COMFORT CURVE STRIP VI SCH ×2 (11:30)
[2025-01-04] MEDS: InsuLIN REG 1unit/0.01ml Soln (100units/ml) SC SCH ×2 (12:03)
--- NOTE | 2025-01-04 15:00 | DVHPN2 ---
Subjective LOOKS RESTED Changes from previous H/P or p: No Changes Eyes: No Pain, No Vision change, No Conjunctivae inflammation, No Eyelid inflammation, No Other, No Redness ENT: No Ear pain, No Ear discharge, No Nose pain, No Nose discharge, No Nose congestion, No Mouth pain, No Mouth swelling, No Throat pain, No Throat swelling, No Other Cardiovascular: Chest Pain; No Palpitations, No Orthopnea, No Paroxysmal Noc. Dyspnea, No Edema, No Lt Headedness, No Other Respiratory: No Cough, No Dry, No Shortness of breath, No SOB with excertion, No Wheezing, No Hemoptysis, No Pleuritic Pain, No Sputum, No Other Gastrointestinal: No Nausea, No Vomiting, No Abdominal Pain, No Diarrhea, No Constipation, No Melena, No Hematochezia, No Other Genitourinary: No Dysuria, No Frequency, No Incontinence, No Hematuria, No Retention, No Other Musculoskeletal: No other, No neck pain, No shoulder pain, No arm pain; back pain; No hand pain, No leg pain, No foot pain Skin: No Rash, No Lesions, No Jaundice, No Bruising, No Other Objective Vitals Vital Signs Date Time Temp Pulse Resp B/P (MAP) Pulse Ox O2 Delivery O2 Flow Rate FiO2 01/04/25 12:04 97 20 145/101 01/04/25 08:00 98.1 97 98.1 01/04/25 08:00 Room Air* 0 21 General Appearance: Alert, Oriented X3, Cooperative, No acute distress Lungs: Clear to auscultation, Normal air movement Cardiovascular: Regular rate, Normal S1, Normal S2, No murmurs Abdomen: Normal bowel sounds, Soft, No tenderness, No hepatospenomegaly Neuro: Normal gait, Normal speech, Strength at 5/5 X4 ext, Normal tone, S ensation intact, Cranial nerves 3-12 NL, Reflexes 2+ Psych/Mental Status: Mental status NL, Mood NL Medications Current Medications Medications Dose Ordered Sig/Jorge Route Start Time Stop Time Status Last Admin Dose Admin Clonidine HCl 0.2 mg Q6HP PRN PO 01/03/25 22:15 01/04/25 02:01 0.2 MG Atorvastatin Calcium 40 mg HS PO 01/04/25 22:00 Metoprolol Tartrate 50 mg BID PO 01/04/25 10:00 01/04/25 10:39 50 MG Amlodipine Besylate 10 mg DAILY PO 01/04/25 10:00 01/04/25 10:39 10 MG Sodium Chloride 10 ml Q8HR IV 01/04/25 06:00 01/04/25 14:40 10 ML Acetaminophen/ Hydrocodone Bitart 1 tab Q4HP PRN PO 01/03/25 22:15 01/04/25 06:13 1 TAB Ondansetron HCl 4 mg Q4HP PRN IV 01/03/25 22:15 Docusate Sodium 100 mg BIDPRN PRN PO 01/03/25 22:15 Acetaminophen 650 mg Q6HP PRN PO 01/03/25 22:15 Famotidine 20 mg DAILY IV 01/04/25 10:00 01/04/25 10:38 20 MG Nitroglycerin 0.4 mg Q5MINP PRN SL 01/03/25 23:00 Morphine Sulfate 2 mg Q30M PRN IV 01/03/25 23:00 01/04/25 10:40 2 MG Labetalol HCl 10 mg Q2HPRN PRN IV 01/04/25 05:00 Diagnostic Test (Pha) 1 strip ACHS 01/04/25 11:30 01/04/25 11:30 1 STRIP Insulin Human Regular ACHS SC 01/04/25 11:30 Dextrose 50 ml PRN PRN IV 01/04/25 08:30 Laboratory Results Laboratory Tests 01/04/25 02:35 Chemistry Test 01/03/25 16:32 01/04/25 02:35 Calcium Level 9.3 mg/dL (8.7-10.4) 9.2 mg/dL (8.7-10.4) Albumin 4.3 g/dL (3.2-4.8) Total Protein 7.3 g/dL (5.7-8.2) Cardiac Markers Test 01/03/25 16:32 B-Type Natriuretic Peptide 95.62 pg/mL (0-100) LFT Test 01/04/25 02:35 Alanine Aminotransferase (ALT) 25 U/L (7-40) Alkaline Phosphatase 80 U/L (46-116) Aspartate Amino Transferase (AST) 24 U/L (13-40) Total Bilirubin 0.7 mg/dL (0.2-1.0) Urinalysis Test 01/03/25 16:53 Urine Color Yellow (Yellow) Urine Clarity Clear (Clear) Urine pH 6.0 (5.0-9.0) Urine Specific [place] 1.027 (1.001-1.035) Urine Protein Trace (Negative) H Urine Ketones Negative (Negative) Urine Blood Negative /uL (Negative) Urine Nitrite Negative (Negative) Urine Bilirubin Negative (Negative) Urine Urobilinogen Normal mg/dL (Negative) Urine Leukocyte Esterase Negative /uL (Negative) Urine RBC 1 /hpf (0 - 3) Urine Microscopic WBC 11 /HPF (0-3) H Urine Squamous Epithelial Cells Few /hpf (<5) Urine Bacteria None seen /hpf (None Seen) Urine Hyaline Casts Few /lpf (0 - 2) Urine Mucus Few (None Seen) Urine Glucose 1+ mg/dL (Normal) H Assessment/Plan Assessment/Plan CARDIOMYOPATHY- echo 12/21 shows ef 35 % htn emergency resolved compensated chf chest pain due to above resolved chronic abdominal pain- normal us/? renal cyst not seen on ct/normal renal doppler/abdominal bulge more of muscle lumbar spinal stenosis- chest pain normal stress test-11/2024- nitro/pain control diabetes mellitus Plan discussed with: Patient, Other Date of Service: Jan 04, 2025 Billing Provider: REINIER ARNOLD MD Common Visit Codes: [id number] INP/OBS CARE(MOD) REINIER ARNOLD MD Jan 04, 2025 15:00
[2025-01-04 16:42] VITALS: BP 158/108; PULSE 100; RESP 17; TEMP 98.2; O2SAT 96
[2025-01-04 18:00] VITALS: O2SAT 98
[2025-01-04 20:00] VITALS: PULSE 100; RESP 17
[2025-01-04] MEDS ORDERED: MORPHINE SULFATE INJ 2 MG/ml SYRG IV ONE (20:45)
[2025-01-04 21:00] VITALS: BP 149/101; PULSE 102; RESP 18; TEMP 98.3; O2SAT 98
[2025-01-04] MEDS ORDERED: MORPHINE SULFATE 4 MG/ML SYR/VIAL IV ONE (21:30)
[2025-01-04] MEDS: ATORVASTATIN 20 MG TAB PO SCH (23:23)
[2025-01-05] VITALS (8 sets, daily range): BP systolic 98–171; BP diastolic 61–117; PULSE 83–110; RESP 14–19; TEMP 97.5–98.8; O2SAT 94–99
--- NOTE | 2025-01-05 04:58 | DVHINCON2 ---
Date of service: Jan 05, 2025 Referring Physician Jules Reason for Consultation Chest Pain History of Present Illness This is a 49-year old male who initially presented 01/04/2025 with reported right-sided chest discomfort and elevated blood pressures that had started approximately one day prior to initial presentation. Upon ED arrival initial patient had been found hypertensive with an initial blood pressure of 192/1 30mmhg with highest documented blood pressure throughout present admission of 216/127mmHg which it is of note during recent admission, renal artery stenosis and large vessel disease (aortic dissection/aneurysm) had been ruled out. At present initial 12-lead electrocardiogram had revealed sinus tachycardia at 116bpm, QRS of 116 milliseconds, QTC of 492 milliseconds, with no evidence for acute ischemic changes. Serial high sensitive troponin trend had been found normal (10, 10, 10). D-Dimer was found negative. BNP level was found normal at 95.62 which subsequent chest x-ray had revealed no evidence for acute cardiopulmonary abnormalities. UDS had revealed presence of opiates (has been administered Morphine) however no evidence for any further substances. Of note, patient does have baseline history of systolic heart failure dated back to November of 2023 which Echocardiogram 12/26/2023 had revealed an LVEF of 30%. Patient at that time had underwent subsequent ischemic workup by cardiac catheterization 12/27/2023 revealing sluggish flow and mild to moderate disease (40%) involving the mid to distal LAD with no discrete stenosis which had been treated medically. Catheterization at that time had further revealed portions of coronary anatomy with sluggish flow without discrete stenosis. Subsequent Echocardiogram 07/21/2024 had revealed an LVEF of 30-35%. Of note, patient had again presented in November of 2024 which at that time Echocardiogram 12/03/2024 had revealed an LVEF of 32%. Cardiolite Stress Test 12/03/2024 at that time had been performed and had revealed negative study for ischemia, LVEF of 17%, LV dilation, end-stage cardiomyopathy, with an inferiolateral wall infarct. Patient himself has been on GDMT for systolic heart failure dated back to time heart failure had been discovered back in November of 2023. At present, denies any shortness of breath, palpitations, dizziness, syncope, orthopnea, paroxysmal nocturnal dyspnea, dyspnea on exertion, or any further cardiac related symptoms. Cardiology services were subsequently involved by primary team request for cardiac aspects of care. Past medical history includes coronary artery disease, chronic systolic heart failure, hypertension, hyperlipidemia, diabetes mellitus, GERD, previous H. pylori infection, degenerative disc disease involving lumbar spine, and obesity. Patient endorses remote history of methamphetamine use (reports has not used in years). Denies tobacco use. Denies alcohol use. Echocardiogram: ([facility] 12/26/2023) Conclusion Severely dilated left ventricle. Severely reduced left ventricular systolic function estimated ejection fraction of 30%. There is an inferior inferolateral wall akinesia there is anterior anteroapical anterolateral wall severe hypokinesia. Moderately reduced right ventricular systolic function. Normal biatrial size and dimension. The aortic valve appears normal in structure and function. There is mild mitral valve regurgitation. There is mild tricuspid valve regurgitation. The pulmonary valve is grossly normal. No pericardial effusion. Echocardiogram: ([facility] 07/21/2024) Conclusion Left ventricle: Mild concentric left ventricle hypertrophy was seen. Left ventricle was dilated. LV EF was 30-35%. Moderate diffuse hypokinesis of left ventricular seen. Pseudo normal LV filling was observed. Right ventricle was dilated with normal systolic function. Both atria were mildly dilated. Aortic valve: Aortic valve was trileaflet. There was no aortic insufficiency disease denies cyanosis. There was mild mitral regurgitation. There was no tricuspid regurgitation. There was mild pulmonary valve insufficiency. As there was no good tricuspid regurgitation jet, right ventricular systolic pressure could not be estimated. There was trace pericardial effusion. Echocardiogram: ([facility] 12/03/2024) Conclusion MODERATELY DILATED LV. GLOBAL LV HYPOKINESIS. LV EF IS 32% AND IS MODERATELY REDUCED. NORMAL VALVES. NO EFFUSION. DILATED RV AND RA Cardiac Catheterization: ([facility] 12/27/2023) Right coronary artery comes off the right coronary cusp it is a large dominant system, it bifurcates distally into large posterior descending artery as well as valve posterolateral branch. The right coronary artery has sluggish blood flow but has no discrete stenosis. Left main comes off the left coronary cusp. It bifurcates distally into a large left anterior descending artery and medium-sized left circumflex vessel. The left main is free of any significant atherosclerotic plaquing. Left anterior descending artery it is large gives rise to a large diagonal branch. It has a sluggish flow and [id number] disease of the mid to distal part at 40%. But no discrete stenosis was noted. The left circumflex artery is medium-sized vessel it gives rise to two large obtuse marginal branches. It has mild irregularity but no significant atherosclerotic plaquing. There is little sluggish flow involving the right circumflex vessel. Cardiolite Stress Test: ([facility] 12/03/2024) revealed Nuclear Findings: negative for ischemia. lvef 17%. dilated LV. end stage cardiomyopathy. inferiolateral wall infarct Past Medical History Reviewed Past Surgical History Reviewed Family History: FHx: multiple myeloma G8 MOTHER, Allergies: Coded Allergies: No Known Drug Allergy (Verified Allergy, Unknown, 12/24/23) Home Meds Active Scripts Hydrocodone-Acetaminophen (Hydrocodone Bitartrate/AC 5-325 mg) 1 Tab Tab, 1 TAB PO Q6HP PRN, #15 TAB Prov:JOSÉ LEMON MD 12/23/24 Empagliflozin (Jardiance) 10 Mg Tab, 10 MG PO DAILY for 30 Days, #30 TAB 3 Refills Prov:JOSÉ LEMON MD 12/23/24 Amlodipine Besylate (Amlodipine Besylate) 10 Mg Tab, 1 TAB PO DAILY, #30 TAB 5 Refills Prov:JOSÉ LEMON MD 12/23/24 Carvedilol (Coreg) 25 Mg Tab, 1 TAB PO BID, #60 TAB 5 Refills Prov:JOSÉ LEMON MD 12/23/24 Lisinopril (Lisinopril) 40 Mg Tab, 1 TAB PO DAILY, #30 TAB 5 Refills Prov:JOSÉ LEMON MD 12/23/24 Spironolactone (Aldactone) 25 Mg Tab, 25 MG PO DAILY for 30 Days, #30 TAB 3 Refills Prov:JOSÉ LEMON MD 12/23/24 Hydrocodone-Acetaminophen (Hydrocodone Bitartrate/AC 5-325 mg) 1 Tab Tab, 1 TAB PO Q8HP PRN, #14 TAB Prov:GENIE MELENDEZ MD 12/05/24 Carvedilol (Carvedilol) 25 Mg Tab, 1 TAB PO BID, #60 TAB 5 Refills Prov:GENIE MELENDEZ MD 12/05/24 Empagliflozin (Jardiance) 10 Mg Tab, 10 MG PO DAILY, #30 TAB Prov:GENIE MELENDEZ MD 12/05/24 Trazodone Hcl (Trazodone Hcl) 50 Mg Tab, 1 TAB PO QHSP PRN for PSYCHOPHYSIOLOGIC INSOMNIA for 14 Days, #14 TAB Prov:GENIE MELENDEZ MD 12/05/24 Lisinopril (Lisinopril) 40 Mg Tab, 1 TAB PO DAILY, #30 TAB 1 Refill Prov:CAROLINA OVALLE MD 08/23/24 Duloxetine Hcl (Cymbalta) 20 Mg Cap, 1 CAP PO DAILY for 30 Days, #30 CAP Prov:ALE HARRIS RESIDENT 08/15/24 Insulin Glargine (Lantus) 100 Unit/Ml Inj, 35 UNITS SC BID@1000,2200 for 30 Days, #1 INJ Prov:CORRINE GRAHAM RESIDENT 12/28/23 Reported Medications Omeprazole (Gnp Omeprazole) 20 Mg Tab, 1 TAB PO DAILY, #90 TAB 1 Refill 12/02/24 Spironolactone (Spironolactone) 50 Mg Tab, 1 TAB PO DAILY, #30 TAB 5 Refills 12/02/24 Atorvastatin Calcium (Lipitor) 40 Mg Tab, 1 TAB PO DAILY, #30 TAB 5 Refills 12/02/24 Sildenafil Citrate (Sildenafil Citrate) 20 Mg Tab, 1 TAB PO DAILY for 30 Days, #30 09/24/24 Sucralfate (CARAFATE SUSP) 1 Gm/10 Ml Ss, 10 ML PO BID for 30 Days, #600 09/24/24 Senna (Senna-Time) 8.6 Mg Tab, 2 TAB PO DAILY for 30 Days, #60 09/24/24 Tirzepatide (Mounjaro) 7.5 Mg/0.5 Ml Inj, 7.5 MG SUBCUT QWEEKLY for 28 Days, #2 09/24/24 Ergocalciferol (Vitamin D) 50,000 Unit Cap, 1 CAP PO QWEEKLY for 28 Days, #4 09/24/24 Gabapentin (Gabapentin) 300 Mg Cap, 3 CAP PO TID for 30 Days, #270 09/24/24 Metoclopramide HCl (Metoclopramide Hydrochlor) 10 Mg Tab, 1 TAB PO TID for 30 Days, #90 09/24/24 Pantoprazole Sodium Sesquihydr (Pantoprazole Sodium) 40 Mg Tab, 1 TAB PO BID for 30 Days, #60 09/24/24 Polyethylene Glycol 3350 (Gnp Clearlax) 17 Gm/Scoop Pow, 17 GM PO DAILY for 30 Days, #510 09/24/24 Clonidine Hydrochloride (Clonidine Hcl) 0.1 Mg Tab, 1 TAB PO BIDPRN for 30 Days, #60 09/24/24 Insulin Lispro (Humalog Kwikpen) 100 Unit/Ml Inj, 25 UNITS SC AC for 40 Days, #30 08/14/24 Furosemide (Furosemide) 20 Mg Tab, 1 TAB PO BID for 90 Days, #180 08/14/24 Hydroxyzine Hcl (Hydroxyzine Hcl) 25 Mg Tab, 1 TAB PO DAILY for 30 Days, #30 08/14/24 Linaclotide Base (LINZESS) 145 Mcg Cap, 1 CAP PO DAILY for 30 Days, #30 08/14/24 Nitroglycerin (NTROSTAT SUBLINGUAL) 0.4 Mg Sl, 0.4 MG SL PRN, TAB *MAY REPEAT EVERY 5 MINUTES X 3 TOTAL IF NO RELIEF, INITIATE ANALGESIC THERAPY. NOTIFY PHYSICIAN *Do not crush. 12/25/23 Current Medications Current Medications Medications (Trade) Dose Ordered Sig/Jorge Route PRN Reason Start Time Stop Time Status Last Admin Atorvastatin Calcium (Lipitor) 40 mg HS PO 01/04/25 22:00 01/04/25 23:23 Metoprolol Tartrate (Lopressor Tablet) 50 mg BID PO 01/04/25 10:00 01/04/25 23:24 Amlodipine Besylate (Norvasc Tablet) 10 mg DAILY PO 01/04/25 10:00 01/04/25 10:39 Sodium Chloride (Saline Lock Ns) 10 ml Q8HR IV 01/04/25 06:00 01/04/25 23:35 Famotidine (Pepcid Injection) 20 mg DAILY IV 01/04/25 10:00 01/04/25 14:52 DC 01/04/25 10:38 Labetalol HCl (Labetalol HCl) 10 mg Q2HPRN PRN IV SBP>150 01/04/25 05:00 Diagnostic Test (Pha) (Accu-Chek Comfort Curve T) 1 strip ACHS 01/04/25 11:30 01/04/25 23:27 Insulin Human Regular (InsuLIN R) ACHS SC 01/04/25 11:30 01/04/25 22:00 Dextrose 50 ml PRN PRN IV Blood Sugar LESS THAN 60 01/04/25 08:30 Review of Systems A 14-point review of systems is negative unless otherwise noted above Vital Signs Vital Signs Date Time Temp Pulse Resp B/P (MAP) Pulse Ox O2 Delivery O2 Flow Rate FiO2 01/05/25 01:00 97.5 91 18 142/89 (106) 96 97.5 01/04/25 20:00 Room Air* 0 21 Physical Exam Heart: S1 and S2 regular. The patient is in sinus rhythm. Lungs: Clear to auscultation Abdomen: Benign. No aortic bruits. No pulsatile masses Extremities: Distal pulses palpable, 2+. No evidence for peripheral edema Labs/Diagnostic Data Labs Test 01/04/25 23:26 01/04/25 02:35 01/03/25 19:08 01/03/25 16:53 Range/Units POC Glucose 168 H 70-106 mg/dl White Blood Count 9.1 4.4-10.8 10^3/uL Red Blood Count 4.88 4.5-5.90 10^6/uL Hemoglobin 15.2 13.5-17.5 g/dL Hematocrit 42.6 41.0-53.0 % Mean Corpuscular Volume 87.4 80.0-100.0 fL Mean Corpuscular Hemoglobin 31.2 28.0-32.0 pg Mean Corpuscular Hemoglobin Concent 35.7 32.0-36.0 g/dL Red Cell Distribution Width 14.6 H 11.8-14.3 % Platelet Count 231 140-450 10^3/uL Mean Platelet Volume 8.0 6.9-10.8 fL Neutrophils (%) (Auto) 62.2 37.0-80.0 % Lymphocytes (%) (Auto) 25.4 10.0-50.0 % Monocytes (%) (Auto) 10.1 0.0-12.0 % Eosinophils (%) (Auto) 1.4 0.0-7.0 % Basophils (%) (Auto) 0.9 0.0-2.0 % Neutrophils # (Auto) 5.7 1.6-8.6 10 ^3/uL Lymphocytes # (Auto) 2.3 0.4-5.4 10 ^3/uL Monocytes # (Auto) 0.9 0-1.3 10 ^3/uL Eosinophils # (Auto) 0.1 0-0.8 10 ^3/uL Basophils # (Auto) 0.1 0-0.2 10 ^3/uL Nucleated Red Blood Cells 0.1 % Sodium Level 141 136-145 mmol/L Potassium Level 3.5 3.5-5.1 mmol/L Chloride Level 103 98-107 mmol/L Carbon Dioxide Level 26 20-31 mmol/L Anion Gap 12 5-15 Blood Urea Nitrogen 6 L 9-23 mg/dL Creatinine 0.74 0.700-1.30 mg/dL Glomerular Filtration Rate Calc 111 >90 mL/min BUN/Creatinine Ratio 8.1 L 10.0-20.0 Serum Glucose 176 H 74-106 mg/dL Calcium Level 9.2 8.7-10.4 mg/dL Total Bilirubin 0.7 0.2-1.0 mg/dL Aspartate Amino Transferase (AST) 24 13-40 U/L Alanine Aminotransferase (ALT) 25 7-40 U/L Alkaline Phosphatase 80 46-116 U/L Total Protein 7.3 5.7-8.2 g/dL Albumin 4.3 3.2-4.8 g/dL Troponin I High Sensitivity 10 </=54 ng/L Urine Color Yellow Yellow Urine Clarity Clear Clear Urine pH 6.0 5.0-9.0 Urine Specific [place] 1.027 1.001-1.035 Urine Protein Trace H Negative Urine Ketones Negative Negative Urine Blood Negative Negative /uL Urine Nitrite Negative Negative Urine Bilirubin Negative Negative Urine Urobilinogen Normal Negative mg/dL Urine Leukocyte Esterase Negative Negative /uL Urine RBC 1 0 - 3 /hpf Urine Microscopic WBC 11 H 0-3 /HPF Urine Squamous Epithelial Cells Few <5 /hpf Urine Bacteria None seen None Seen /hpf Urine Hyaline Casts Few 0 - 2 /lpf Urine Mucus Few None Seen Urine Glucose 1+ H Normal mg/dL Test 01/03/25 16:32 Range/Units B-Type Natriuretic Peptide 95.62 0-100 pg/mL Plan/Recommendation ASSESSMENT: This is a 49-year old male who initially presented 01/04/2025 with reported right-sided chest discomfort and elevated blood pressures that had started approximately one day prior to initial presentation. Upon ED arrival initial patient had been found hypertensive with an initial blood pressure of 192/130mmhg with highest documented blood pressure throughout present admission of 216/127mmHg which it is of note during recent admission, renal artery stenosis and large vessel disease (aortic dissection/aneurysm) had been ruled out. At present initial 12-lead electrocardiogram had revealed sinus tachycardia at 116bpm, QRS of 116 milliseconds, QTC of 492 milliseconds, with no evidence for acute ischemic changes. Serial high sensitive troponin trend had been found normal (10, 10, 10). D-Dimer was found negative. BNP level was found normal at 95.62 which subsequent chest x-ray had revealed no evidence for acute cardiopulmonary abnormalities. UDS had revealed presence of opiates (has been administered Morphine) however no evidence for any further substances. Of note, patient does have baseline history of systolic heart failure dated back to November of 2023 which Echocardiogram 12/26/2023 had revealed an LVEF of 30%. Patient at that time had underwent subsequent ischemic workup by cardiac catheterization 12/27/2023 revealing sluggish flow and mild to moderate disease (40%) involving the mid to distal LAD with no discrete stenosis which had been treated medically. Catheterization at that time had further revealed portions of coronary anatomy with sluggish flow without discrete stenosis. Subsequent Echocardiogram 07/21/2024 had revealed an LVEF of 30-35%. Of note, patient had again presented in November of 2024 which at that time Echocardiogram 12/03/2024 had revealed an LVEF of 32%. Cardiolite Stress Test 12/03/2024 at that time had been performed and had revealed negative study for ischemia, LVEF of 17%, LV dilation, end-stage cardiomyopathy, with an inferiolateral wall infarct. Patient himself has been on GDMT for systolic heart failure dated back to time heart failure had been discovered back in November of 2023. At present, denies any shortness of breath, palpitations, dizziness, syncope, orthopnea, paroxysmal nocturnal dyspnea, dyspnea on exertion, or any further cardiac related symptoms. Cardiology services were subsequently involved by primary team request for cardiac aspects of care. Past medical history includes coronary artery disease, non-ischemic cardiomyopathy, chronic systolic heart failure, hypertension, hyperlipidemia, diabetes mellitus, GERD, previous H. pylori infection, degenerative disc disease involving lumbar spine, and obesity. Patient endorses remote history of methamphetamine use (reports has not used in years). Denies tobacco use. Denies alcohol use. Echocardiogram: ([facility] 12/26/2023) Conclusion Severely dilated left ventricle. Severely reduced left ventricular systolic function estimated ejection fraction of 30%. There is an inferior inferolateral wall akinesia there is anterior anteroapical anterolateral wall severe hypokinesia. Moderately reduced right ventricular systolic function. Normal biatrial size and dimension. The aortic valve appears normal in structure and function. There is mild mitral valve regurgitation. There is mild tricuspid valve regurgitation. The pulmonary valve is grossly normal. No pericardial effusion. Echocardiogram: ([facility] 07/21/2024) Conclusion Left ventricle: Mild concentric left ventricle hypertrophy was seen. Left ventricle was dilated. LV EF was 30-35%. Moderate diffuse hypokinesis of left ventricular seen. Pseudo normal LV filling was observed. Right ventricle was dilated with normal systolic function. Both atria were mildly dilated. Aortic valve: Aortic valve was trileaflet. There was no aortic insufficiency disease denies cyanosis. There was mild mitral regurgitation. There was no tricuspid regurgitation. There was mild pulmonary valve insufficiency. As there was no good tricuspid regurgitation jet, right ventricular systolic pressure could not be estimated. There was trace pericardial effusion. Echocardiogram: ([facility] 12/03/2024) Conclusion MODERATELY DILATED LV. GLOBAL LV HYPOKINESIS. LV EF IS 32% AND IS MODERATELY REDUCED. NORMAL VALVES. NO EFFUSION. DILATED RV AND RA Cardiac Catheterization: ([facility] 12/27/2023) Right coronary artery comes off the right coronary cusp it is a large dominant system, it bifurcates distally into l arge posterior descending artery as well as valve posterolateral branch. The right coronary artery has sluggish blood flow but has no discrete stenosis. Left main comes off the left coronary cusp. It bifurcates distally into a large left anterior descending artery and medium-sized left circumflex vessel. The left main is free of any significant atherosclerotic plaquing. Left anterior descending artery it is large gives rise to a large diagonal branch. It has a sluggish flow and [id number] disease of the mid to distal part at 40%. But no discrete stenosis was noted. The left circumflex artery is medium-sized vessel it gives rise to two large obtuse marginal branches. It has mild irregularity but no significant atherosclerotic plaquing. There is little sluggish flow involving the right circumflex vessel. Cardiolite Stress Test: ([facility] 12/03/2024) revealed Nuclear Findings: negative for ischemia. lvef 17%. dilated LV. end stage cardiomyopathy. inferiolateral wall infarct Hypertensive urgency Chest pain (ACS not considered), likely due to above Chronic systolic heart failure, NYHA class II Non-ischemic cardiomyopathy, history of History of methamphetamine abuse Coronary artery disease Hypokalemia, resolved Diabetes mellitus II Hyperlipidemia CARDIAC SUGGESTIONS FOR MANAGEMENT: Recognizing clinical presentation/objective findings, ACS at this point is not considered which chest pain itself is assessed to likely reflect underlying co mponent of hypertensive urgency (highest documented blood pressure of 216/127mmHg). Recognizing previous cardiac catheterization findings in addition to recent Cardiolite Stress Test findings revealing no evidence for ischemia in a patient with a negative serial high sensitive troponin trend, there is no indication for repeat ischemic workup warranted at present time. Recognizing a chronically reduced LV systolic function of less than 35% confirmed by serial echocardiograms dated back to November of 2023 with most recent LVEF of 32% 12/03/2024 despite GDMT in a patient with negative ischemic workup, patient himself benefits from undergoing AICD implantation for primary prevention against sudden cardiac . Benefits, risks, alternative were discussed at length with the patient which he is agreeable to the plan of care. Therefore, will plan for tentative dual-chamber AICD implantation 12/06/[address] 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 Patient to be consented and NPO status at midnight for tentative plan of procedure. Hold all antiplatelet/anticoagulation therapy during the interim. To proceed with optimized medical therapy, risk factor modification, and GDMT for systolic heart failure as concurrent conditions permit. To proceed with optimized blood pr essure control. Will proceed to follow from a cardiac perspective. Plan for tentative AICD implantation 12/06/2024 Patient to be consented and NPO status at midnight Proceed to hold all antiplatelet/anticoagulation therapy Proceed with optimized medical therapy and risk factor modification Proceed with GDMT for systolic heart failure as current conditions permit Proceed with close hemodynamic surveillance Proceed with optimized blood pressure control Consider SGLT-2 inhibitor as outpatient Entresto 24-26mg twice daily Carvedilol 12.5mg twice daily Isosorbide 30mg once daily Aldactone 25mg once daily Atorvastatin 40mg daily Proceed with close rate and rhythm surveillance Transfuse to sustain HGB level above 9.0 Sustain Magnesium level greater than 2.0 Sustain Potassium level greater than 4.0 Follow up renal function and electrolytes Management in telemetry Follow up solutions architect consultant recommendations Will proceed to follow from a cardiac perspective Further recommendations per clinical progression All available diagnostic labs, EKG's, and images were personally reviewed Patient's status, findings, and plan of care was reviewed and discussed with supervising physician Dr. Leary, who is in agreement with current plan of care. Plan of care discussed with and agreed upon by patient / primary RN Prognosis: Guarded Thank you for allowing me to participate in the care of this patient. Further recommendations based on patients clinical course and progression, primary attending, and other consultants. Will continue to follow with primary attending. If you have any questions or concerns, please do not hesitate to contact me. A total of 75 minutes was spent reviewing the patient record, examining the patient, making a diagnostic and therapeutic plan, discussing this plan with medical personnel, following up on diagnostic studies and following the patient for clinical stability excluding any and all procedures. At least 50% of this time was spent in direct, [id number] contact. Plan discussed with: Patient (patient and primary rn ) GEORGIE FUNES [facility] Jan 05, 2025 04:58
[2025-01-05 07:53] LABS: Amphetamine Screen, Urine Neg (NEGATIVE); Barbiturate Scree,Urine Neg (NEGATIVE); Benzodiazephine Screen, Urine Neg (NEGATIVE); Cannabinoid Screen, Urine Neg (NEGATIVE); Cocaine Screen, Urine Neg (NEGATIVE); Opiate Scree,Urine Pos (NEGATIVE); Phencyclidine Screen, Urine Neg (NEGATIVE)
--- NOTE | 2025-01-05 11:42 | DVHPN2 ---
Subjective LOOKS RESTED and watching show on tv but insisting on iv pain med- no acute pain but states has chronic generalized pain and gets morphine in hospital/he is on norco for his chronic pains then states cardiology is going to place aicd in am- Changes from previous H/P or p: No Changes Eyes: No Pain, No Vision change, No Conjunctivae inflammation, No Eyelid inflammation, No Other, No Redness ENT: No Ear pain, No Ear discharge, No Nose pain, No Nose discharge, No Nose congestion, No Mouth pain, No Mouth swelling, No Throat pain, No Throat swelling, No Other Cardiovascular: Chest Pain; No Palpitations, No Orthopnea, No Paroxysmal Noc. Dyspnea, No Edema, No Lt Headedness, No Other Respiratory: No Cough, No Dry, No Shortness of breath, No SOB with excertion, No Wheezing, No Hemoptysis, No Pleuritic Pain, No Sputum, No Other Gastrointestinal: No Nausea, No Vomiting, No Abdominal Pain, No Diarrhea, No Constipation, No Melena, No Hematochezia, No Other Genitourinary: No Dysuria, No Frequency, No Incontinence, No Hematuria, No Retention, No Other Musculoskeletal: No other, No neck pain, No shoulder pain, No arm pain; back pain; No hand pain, No leg pain, No foot pain Skin: No Rash, No Lesions, No Jaundice, No Bruising, No Other Objective Vitals Vital Signs Date Time Temp Pulse Resp B/P (MAP) Pulse Ox O2 Delivery O2 Flow Rate FiO2 01/05/25 08:58 98.3 105 18 154/102 (119) 95 98.3 01/05/25 08:00 Room Air* 0 21 Intake/Output Intake and Output 01/05/25 07:00 Intake Total 500 ml Balance 500 ml Intake Oral 500 ml # Voids 7 General Appearance: Alert, Oriented X3, Cooperative, No acute distress Lungs: Clear to auscultation, Normal air movement Cardiovascular: Regular rate, Normal S1, Normal S2, No murmurs Abdomen: Normal bowel sounds, Soft, No tenderness, No hepatospenomegaly Neuro: Normal gait, Normal speech, Strength at 5/5 X4 ext, Normal tone, S ensation intact, Cranial nerves 3-12 NL, Reflexes 2+ Psych/Mental Status: Mental status NL, Mood NL Medications Current Medications Medications Dose Ordered Sig/Jorge Route Start Time Stop Time Status Last Admin Dose Admin Clonidine HCl 0.2 mg Q6HP PRN PO 01/03/25 22:15 01/04/25 02:01 0.2 MG Atorvastatin Calcium 40 mg HS PO 01/04/25 22:00 01/04/25 23:23 40 MG Sodium Chloride 10 ml Q8HR IV 01/04/25 06:00 01/05/25 06:20 10 ML Acetaminophen/ Hydrocodone Bitart 1 tab Q4HP PRN PO 01/03/25 22:15 01/05/25 08:33 1 TAB Docusate Sodium 100 mg BIDPRN PRN PO 01/03/25 22:15 Acetaminophen 650 mg Q6HP PRN PO 01/03/25 22:15 Nitroglycerin 0.4 mg Q5MINP PRN SL 01/03/25 23:00 Labetalol HCl 10 mg Q2HPRN PRN IV 01/04/25 05:00 Diagnostic Test (Pha) 1 strip ACHS 01/04/25 11:30 01/05/25 06:59 1 STRIP Insulin Human Regular ACHS SC 01/04/25 11:30 01/05/25 07:00 3 UNITS Dextrose 50 ml PRN PRN IV 01/04/25 08:30 Carvedilol 6.25 mg Q12HR PO 01/05/25 22:00 Sacubitril/ Valsartan 1 tab BID PO 01/05/25 22:00 Isosorbide Mononitrate 30 mg DAILY PO 01/06/25 10:00 Spironolactone 12.5 mg DAILY PO 01/06/25 10:00 Laboratory Results Laboratory Tests 01/04/25 02:35 Urinalysis Test 01/03/25 16:53 Urine Color Yellow (Yellow) Urine Clarity Clear (Clear) Urine pH 6.0 (5.0-9.0) Urine Specific [place] 1.027 (1.001-1.035) Urine Protein Trace (Negative) H Urine Ketones Negative (Negative) Urine Blood Negative /uL (Negative) Urine Nitrite Negative (Negative) Urine Bilirubin Negative (Negative) Urine Urobilinogen Normal mg/dL (Negative) Urine Leukocyte Esterase Negative /uL (Negative) Urine RBC 1 /hpf (0 - 3) Urine Microscopic WBC 11 /HPF (0-3) H Urine Squamous Epithelial Cells Few /hpf (<5) Urine Bacteria None seen /hpf (None Seen) Urine Hyaline Casts Few /lpf (0 - 2) Urine Mucus Few (None Seen) Urine Glucose 1+ mg/dL (Normal) H Assessment/Plan Assessment/Plan CARDIOMYOPATHY- echo 12/21 shows ef 35 % htn emergency resolved compensated chf chest pain due to above resolved chronic abdominal pain- normal us/? renal cyst not seen on ct/normal renal doppler/abdominal bulge more of muscle - pain seeking behaviour- states if he is not given iv pain med he will sign ama- explained to patient indication for iv pain meds/he is not being prudent/ lumbar spinal stenosis-stable chest pain normal stress test-11/2024- nitro/pain control diabetes mellitus Plan discussed with: Patient, Other Date of Service: Jan 05, 2025 Billing Provider: REINIER ARNOLD MD Common Visit Codes: [id number] INP/OBS CARE(MOD) REINIER ARNOLD MD Jan 05, 2025 11:42
[2025-01-05] MEDS: HYDROcodone-ACET 10/325MG TAB PO PRN (12:58)
[2025-01-05 13:58] LABS: Alanine Aminotransferase 26 U/L (7-40); Albumin 4.1 g/dL (3.2-4.8); Alkaline Phosphatase 84 U/L (46-116); Anion Gap 9 (5-15); BUN/Creatinine Ratio 12.4 (10.0-20.0); Bilirubin, Total 0.9 mg/dL (0.2-1.0); Blood Urea Nitrogen 11 mg/dL (9-23); Calcium 9.1 mg/dL (8.7-10.4); Carbon Dioxide 29 mmol/L (20-31); Chloride 104 mmol/L (98-107); Potassium 3.8 mmol/L (3.5-5.1); Sodium 142 mmol/L (136-145); Total Protein 7.0 g/dL (5.7-8.2)
[2025-01-05 14:00] LABS: INR 1.05 (0.9-1.15); Partial Thromboplastin Time 29.1 SEC (24.5-34.5); Prothrombin Time 11.1 sec (9.3-11.8)
[2025-01-05 14:05] LABS: Glucose 122 mg/dL (74-106)
[2025-01-05] MEDS ORDERED: CARVEDILOL 3.125 MG TAB PO SCH ×2 (15:15→22:00)
[2025-01-05 15:22] LABS: Cholesterol 130 mg/dL (< 200)
[2025-01-05 15:26] LABS: HDL Cholesterol 36 mg/dL (40-59); Triglycerides 152 mg/dL (< 150)
[2025-01-05] MEDS ORDERED: hydrALAZINE HCL 20 MG/ML VL IV PRN ×2 (16:00→16:15)
[2025-01-05] MEDS: CARVEDILOL 12.5 MG TAB PO SCH (16:10)
[2025-01-05] MEDS: SPIRONOLACTONE 25 MG TAB PO SCH (16:10)
[2025-01-05] MEDS: ISOSORBIDE MONONITRATE ER 60 MG TAB PO SCH (16:11)
[2025-01-05] MEDS: SACUBITRIL-VALSARTAN 24mg/26mg TAB PO SCH (17:55)
[2025-01-05] MEDS: KETOROLAC TROMETH 30 MG/ML 1ML VIAL IV ONE (21:39)
[2025-01-05] MEDS ORDERED: SACUBITRIL-VALSARTAN 24mg/26mg TAB PO SCH (22:00)
[2025-01-06] VITALS (13 sets, daily range): BP systolic 103–137; BP diastolic 65–91; PULSE 91–107; RESP 12–20; TEMP 97.7–98.6; O2SAT 90–100
[2025-01-06] MEDS: LIDOCAINE 5% TOPICAL PATCH TOP ONE (00:23)
[2025-01-06 08:01] LABS: Hematocrit 37.8 % (41.0-53.0); Hemoglobin 13.3 g/dL (13.5-17.5); Mean Corpuscular Hemoglobin 30.8 pg (28.0-32.0); Mean Corpuscular Volume 87.4 fL (80.0-100.0); Nucleated Red Blood Cells % 0.2 %
--- NOTE | 2025-01-06 08:18 | DVHPN2 ---
Progress Note - Dictate Date Seen: Jan 06, 2025 Medical Necessity Reason Pt with a Central, PICC or Fol: No vital signs Vital Sign Date Time Temp Pulse Resp B/P (MAP) Pulse Ox O2 Delivery O2 Flow Rate FiO2 01/06/25 07:54 97 18 Room Air* 0 21 01/06/25 05:00 98.3 120/82 (95) 92 98.3 Total Intake and Output 01/05/25 01/05/25 01/06/25 15:00 23:00 07:00 Intake Total 1400 ml 900 ml Balance 1400 ml 900 ml medications Current Medications Medications Dose Ordered Sig/Jorge Route Start Time Stop Time Status Last Admin Dose Admin Clonidine HCl 0.2 mg Q6HP PRN PO 01/03/25 22:15 01/05/25 14:01 0.2 MG Atorvastatin Calcium 40 mg HS PO 01/04/25 22:00 01/05/25 21:39 40 MG Sodium Chloride 10 ml Q8HR IV 01/04/25 06:00 01/06/25 06:00 10 ML Docusate Sodium 100 mg BIDPRN PRN PO 01/03/25 22:15 Acetaminophen 650 mg Q6HP PRN PO 01/03/25 22:15 Nitroglycerin 0.4 mg Q5MINP PRN SL 01/03/25 23:00 Labetalol HCl 10 mg Q2HPRN PRN IV 01/04/25 05:00 Diagnostic Test (Pha) 1 strip ACHS 01/04/25 11:30 01/06/25 06:42 1 STRIP Insulin Human Regular ACHS SC 01/04/25 11:30 01/05/25 21:55 3 UNITS Dextrose 50 ml PRN PRN IV 01/04/25 08:30 Acetaminophen/ Hydrocodone Bitart 1 tab Q4HP PRN PO 01/05/25 12:30 01/05/25 23:23 1 TAB Trazodone HCl 100 mg HS PO 01/05/25 22:00 01/05/25 22:32 100 MG Spironolactone 25 mg DAILY PO 01/05/25 15:15 01/05/25 16:10 25 MG Isosorbide Mononitrate 30 mg DAILY PO 01/05/25 15:15 01/05/25 16:11 30 MG Carvedilol 12.5 mg Q12HR PO 01/05/25 15:43 01/05/25 23:23 12.5 MG Sacubitril/ Valsartan 1 tab BID PO 01/05/25 16:15 01/05/25 17:55 1 TAB Hydralazine HCl 10 mg Q4HP PRN IV 01/05/25 16:15 laboratory and microbiology Laboratory Tests 01/06/25 05:47 Test 01/06/25 05:47 Range/Units Serum Glucose Pending Assessment/Plan This is a 49-year old male who initially presented 01/04/2025 with reported right-sided chest discomfort and elevated blood pressures that had started approximately one day prior to initial presentation. Upon ED arrival initial patient had been found hypertensive with an initial blood pressure of 192/130mmhg with highest documented blood pressure throughout present admission of 216/127mmHg which it is of note during recent admission, renal artery stenosis and large vessel disease (aortic dissection/aneurysm) had been ruled out. At present initial 12-lead electrocardiogram had revealed sinus tachycardia at 116bpm, QRS of 116 milliseconds, QTC of 492 milliseconds, with no evidence for acute ischemic changes. Serial high sensitive troponin trend had been found normal (10, 10, 10). D-Dimer was found negative. BNP level was found normal at 95.62 which subsequent chest x-ray had revealed no evidence for acute cardiopulmonary abnormalities. UDS had revealed presence of opiates (has been administered Morphine) however no evidence for any further substances. Of note, patient does have baseline history of systolic heart failure dated back to November of 2023 which Echocardiogram 12/26/2023 had revealed an LVEF of 30%. Patient at that time had underwent subsequent ischemic workup by cardiac catheterization 12/27/2023 revealing sluggish flow and mild to moderate disease (40%) involving the mid to distal LAD with no discrete stenosis which had been treated medically. Catheterization at that time had further revealed portions of coronary anatomy with sluggish flow without discrete stenosis. Subsequent Echocardiogram 07/21/2024 had revealed an LVEF of 30-35%. Of note, patient had again presented in November of 2024 which at that time Echocardiogram 12/03/2024 had revealed an LVEF of 32%. Cardiolite Stress Test 12/03/2024 at that time had been performed and had revealed negative study for ischemia, LVEF of 17%, LV dilation, end-stage cardiomyopathy, with an inferiolateral wall infarct. Patient himself has been on GDMT for systolic heart failure dated back to time heart failure had been discovered back in November of 2023. At present, denies any shortness of breath, palpitations, dizziness, syncope, orthopnea, paroxysmal nocturnal dyspnea, dyspnea on exertion, or any further cardiac related symptoms. Cardiology services were subsequently involved by primary team request for cardiac aspects of care. Not in acute distress, no JVD. Mucousa is pink and wet. Lungs are clear to auscultation. No using accessory muscles of bleeding. Cardiac: Regular, no murmur, no gallop. Abdomen: soft. No gross mass/hepatomegaly. BS:+, No peripheral edema. Dorsalis pedis is 2+ bilateral. No gross lateralized neurologic deficit Past medical history includes coronary artery disease, non-ischemic cardiomyopathy, chronic systolic heart failure, hypertension, hyperlipidemia, diabetes mellitus, GERD, previous H. pylori infection, degenerative disc disease involving lumbar spine, and obesity. Patient endorses remote history of methamphetamine use (reports has not used in years). Denies tobacco use. Denies alcohol use. Echocardiogram: ([facility] 12/26/2023) Conclusion Severely dilated left ventricle. Severely reduced left ventricular systolic function estimated ejection fraction of 30%. There is an inferior inferolateral wall akinesia there is anterior anteroapical anterolateral wall severe hypokinesia. Moderately reduced right ventricular systolic function. Normal biatrial size and dimension. The aortic valve appears normal in structure and function. There is mild mitral valve regurgitation. There is mild tricuspid valve regurgitation. The pulmonary valve is grossly normal. No pericardial effusion. Echocardiogram: ([facility] 07/21/2024) Conclusion Left ventricle: Mild concentric left ventricle hypertrophy was seen. Left ventricle was dilated. LV EF was 30-35%. Moderate diffuse hypokinesis of left ventricular seen. Pseudo normal LV filling was observed. Right ventricle was dilated with normal systolic function. Both atria were mildly dilated. Aortic valve: Aortic valve was trileaflet. There was no aortic insufficiency disease denies cyanosis. There was mild mitral regurgitation. There was no tricuspid regurgitation. There was mild pulmonary valve insufficiency. As there was no good tricuspid regurgitation jet, right ventricular systolic pressure could not be estimated. There was trace pericardial effusion. Echocardiogram: ([facility] 12/03/2024) Conclusion MODERATELY DILATED LV. GLOBAL LV HYPOKINESIS. LV EF IS 32% AND IS MODERATELY REDUCED. NORMAL VALVES. NO EFFUSION. DILATED RV AND RA Cardiac Catheterization: ([facility] 12/27/2023) Right coronary artery comes off the right coronary cusp it is a large dominant system, it bifurcates distally into large posterior descending artery as well as valve posterolateral branch. The right coronary artery has sluggish blood flow but has no discrete stenosis. Left main comes off the left coronary cusp. It bifurcates distally into a large left anterior descending artery and medium-sized left circumflex vessel. The left main is free of any significant atherosclerotic plaquing. Left anterior descending artery it is large gives rise to a large diagonal branch. It has a sluggish flow and [id number] disease of the mid to distal part at 40%. But no discrete stenosis was noted. The left circumflex artery is medium-sized vessel it gives rise to two large obtuse marginal branches. It has mild irregularity but no significant atherosclerotic plaquing. There is little sluggish flow involving the right circumflex vessel. Cardiolite Stress Test: ([facility] 12/03/2024) revealed Nuclear Findings: negative for ischemia. lvef 17%. dilated LV. end stage cardiomyopathy. inferiolateral wall infarct Hypertensive Emergency Chest pain (ACS not considered), likely due to above Chronic systolic heart failure, NYHA class II Non-ischemic cardiomyopathy, history of History of methamphetamine abuse Coronary artery disease Hypokalemia, resolved Diabetes mellitus II Hyperlipidemia CARDIAC SUGGESTIONS FOR MANAGEMENT: Recognizing clinical presentation/objective findings, ACS at this point is not considered which chest pain itself is assessed to likely reflect underlying component of hypertensive urgency (highest documented blood pressure of 216/127mmHg). Recognizing previous cardiac catheterization findings in addition to recent Cardiolite Stress Test findings revealing no evidence for ischemia in a patient with a negative serial high sensitive troponin trend, there is no indication for repeat ischemic workup warranted at present time. Recognizing a chronically reduced LV systolic function of less than 35% confirmed by serial echocardiograms dated back to November of 2023 with most recent LVEF of 32% 12/03/2024 despite GDMT in a patient with negative ischemic workup, patient himself benefits from undergoing AICD implantation for primary prevention against sudden cardiac . Plan for tentative dual-chamber AICD implantation 12/06/[address] Leary pending [employer] availability. Patient to be consented and NPO status at midnight for tentative plan of procedure. Hold all antiplatelet/anticoagulation therapy during the interim. To proceed with optimized medical therapy, risk factor modification, and GDMT for systolic heart failure as concurrent conditions permit. To proceed with optimized blood pressure control. Will proceed to follow from a cardiac perspective. Plan for tentative AICD implantation 12/06/2024 Proceed to hold all antiplatelet/anticoagulation therapy Proceed with optimized medical therapy and risk factor modification Proceed with GDMT for systolic heart failure as current conditions permit Proceed with close hemodynamic surveillance Proceed with optimized blood pressure control Consider SGLT-2 inhibitor as outpatient Entresto 24-26mg twice daily Carvedilol 12.5mg twice daily Isosorbide mononitrate (LA) 30mg once daily Aldactone 25mg once daily Atorvastatin 40mg daily Proceed with close rate and rhythm surveillance Transfuse to sustain HGB level above 9.0 Sustain Magnesium level greater than 2.0 Sustain Potassium level greater than 4.0 Follow up renal function and electrolytes Management in telemetry Follow up furniture rental consultant recommendations Will proceed to follow from a cardiac perspective Further recommendations per clinical progression All available diagnostic labs, EKG's, and images were personally reviewed Plan of care discussed with and agreed upon by patient / primary RN Prognosis: Guarded Thank you for allowing me to participate in the care of this patient. Further recommendations based on patients clinical course and progression, primary attending, and other consultants. Will continue to follow with primary attending. If you have any questions or concerns, please do not hesitate to contact me. A total of 55 minutes was spent reviewing the patient record, examining the patient, making a diagnostic and therapeutic plan, discussing this plan with medical personnel, following up on diagnostic studies and following the patient for clinical stability excluding any and all procedures. At least 50% of this time was spent in direct, [id number] contact. Plan discussed with: Patient, Other (nurse) ESPERANZA DORSEY MD Jan 06, 2025 08:18
[2025-01-06 08:27] LABS: Potassium 4.1 mmol/L (3.5-5.1); Sodium 141 mmol/L (136-145)
[2025-01-06 08:28] LABS: Carbon Dioxide 30 mmol/L (20-31)
[2025-01-06 08:29] LABS: Calcium 9.2 mg/dL (8.7-10.4)
[2025-01-06 08:34] LABS: BUN/Creatinine Ratio 13.2 (10.0-20.0); Blood Urea Nitrogen 16 mg/dL (9-23)
[2025-01-06 08:35] LABS: Glucose 126 mg/dL (74-106)
[2025-01-06 08:55] LABS: Anion Gap 8 (5-15); Chloride 103 mmol/L (98-107)
[2025-01-06] MEDS ORDERED: SPIRONOLACTONE 25 MG TAB PO SCH (10:00)
[2025-01-06] MEDS ORDERED: ISOSORBIDE MONONITRATE ER 60 MG TAB PO SCH (10:00)
[2025-01-06] MEDS: fentaNYL CITRATE 100 MCG/2 ML VL ONE ×3 (14:46→16:52)
[2025-01-06] MEDS: LIDOCAINE 2%HCL (LOCAL ANESTH.) INJ 20ML MDV ONE ×3 (14:47→16:07)
[2025-01-06] MEDS: MIDAZOLAM HCL 2MG/2ML 2ml VIAL (1mg/ml) ONE ×2 (14:47→16:06)
[2025-01-06] MEDS: VANCOMYCIN 1GM/250ML KIT 250 ML IV ONE (14:54)
[2025-01-06] MEDS: IODIXANOL 320MG/ML 100ML BTL IV ONE (14:58)
[2025-01-06] MEDS: VANCOMYCIN HCL 1000 MG VL ONE (15:19)
[2025-01-06] MEDS: GELATIN 1 SPONGE SIZE 100 TOP ONE (16:49)
[2025-01-06] MEDS: Surgicel PA 2X3 INCH TOP ONE (16:50)
--- NOTE | 2025-01-06 17:46 | DVH ---
AP portable chest CLINICAL INDICATION: S/P PACEMAKER Comparison: 01/03/2025 FINDINGS: Pacemaker has been placed with its tip in the right ventricle. Heart size is enlarged. No infiltrates or effusions. No pneumothorax IMPRESSION: 1. Status post pacemaker placement
--- NOTE | 2025-01-06 17:53 | DVHPN2 ---
Reviewed: H&P Changes from previous H/P or p: No Changes General: Per HPI Eyes: No Pain, No Vision change, No Conjunctivae inflammation, No Eyelid inflammation, No Other, No Redness ENT: No Ear pain, No Ear discharge, No Nose pain, No Nose discharge, No Nose congestion, No Mouth pain, No Mouth swelling, No Throat pain, No Throat swelling, No Other Cardiovascular: Chest Pain; No Palpitations, No Orthopnea, No Paroxysmal Noc. Dyspnea, No Edema, No Lt Headedness, No Other Respiratory: No Cough, No Dry, No Shortness of breath, No SOB with excertion, No Wheezing, No Hemoptysis, No Pleuritic Pain, No Sputum, No Other Gastrointestinal: No Nausea, No Vomiting, No Abdominal Pain, No Diarrhea, No Constipation, No Melena, No Hematochezia, No Other Genitourinary: No Dysuria, No Frequency, No Incontinence, No Hematuria, No Retention, No Other Musculoskeletal: No other, No neck pain, No shoulder pain, No arm pain; back pain; No hand pain, No leg pain, No foot pain Skin: No Rash, No Lesions, No Jaundice, No Bruising, No Other Objective Vitals Vital Signs Date Time Temp Pulse Resp B/P (MAP) Pulse Ox O2 Delivery O2 Flow Rate FiO2 01/06/25 12:52 98.6 98 20 106/77 (87) 95 98.6 01/06/25 07:54 Room Air* 0 21 Intake/Output Intake and Output 01/06/25 07:00 Intake Total 2300 ml Balance 2300 ml Intake Oral 2300 ml # Voids 5 General Appearance: Alert, Oriented X3, Cooperative, No acute distress Lungs: Clear to auscultation, Normal air movement Cardiovascular: Regular rate, Normal S1, Normal S2, No murmurs Abdomen: Normal bowel sounds, Soft, No tenderness, No hepatospenomegaly Neuro: Normal gait, Normal speech, Strength at 5/5 X4 ext, Normal tone, S ensation intact, Cranial nerves 3-12 NL, Reflexes 2+ Psych/Mental Status: Mental status NL, Mood NL Medications Current Medications Medications Dose Ordered Sig/Jorge Route Start Time Stop Time Status Last Admin Dose Admin Clonidine HCl 0.2 mg Q6HP PRN PO 01/03/25 22:15 01/05/25 14:01 0.2 MG Atorvastatin Calcium 40 mg HS PO 01/04/25 22:00 01/05/25 21:39 40 MG Sodium Chloride 10 ml Q8HR IV 01/04/25 06:00 01/06/25 13:07 10 ML Docusate Sodium 100 mg BIDPRN PRN PO 01/03/25 22:15 Acetaminophen 650 mg Q6HP PRN PO 01/03/25 22:15 Nitroglycerin 0.4 mg Q5MINP PRN SL 01/03/25 23:00 Labetalol HCl 10 mg Q2HPRN PRN IV 01/04/25 05:00 Diagnostic Test (Pha) 1 strip ACHS 01/04/25 11:30 01/06/25 11:32 1 STRIP Insulin Human Regular ACHS SC 01/04/25 11:30 01/05/25 21:55 3 UNITS Dextrose 50 ml PRN PRN IV 01/04/25 08:30 Acetaminophen/ Hydrocodone Bitart 1 tab Q4HP PRN PO 01/05/25 12:30 01/06/25 12:54 1 TAB Trazodone HCl 100 mg HS PO 01/05/25 22:00 01/05/25 22:32 100 MG Spironolactone 25 mg DAILY PO 01/05/25 15:15 01/06/25 09:20 25 MG Isosorbide Mononitrate 30 mg DAILY PO 01/05/25 15:15 01/06/25 09:14 30 MG Carvedilol 12.5 mg Q12HR PO 01/05/25 15:43 01/06/25 09:15 12.5 MG Sacubitril/ Valsartan 1 tab BID PO 01/05/25 16:15 01/06/25 09:13 1 TAB Hydralazine HCl 10 mg Q4HP PRN IV 01/05/25 16:15 Vancomycin HCl 250 ml @ 250 mls/hr Q12H IV 01/07/25 04:00 UNV Doxycycline Monohydrate 100 mg Q12HR PO 01/07/25 10:00 UNV Laboratory Results Laboratory Tests 01/06/25 05:47 Chemistry Test 01/06/25 05:47 Calcium Level 9.2 mg/dL (8.7-10.4) Urinalysis Test 01/03/25 16:53 Urine Color Yellow (Yellow) Urine Clarity Clear (Clear) Urine pH 6.0 (5.0-9.0) Urine Specific [place] 1.027 (1.001-1.035) Urine Protein Trace (Negative) H Urine Ketones Negative (Negative) Urine Blood Negative /uL (Negative) Urine Nitrite Negative (Negative) Urine Bilirubin Negative (Negative) Urine Urobilinogen Normal mg/dL (Negative) Urine Leukocyte Esterase Negative /uL (Negative) Urine RBC 1 /hpf (0 - 3) Urine Microscopic WBC 11 /HPF (0-3) H Urine Squamous Epithelial Cells Few /hpf (<5) Urine Bacteria None seen /hpf (None Seen) Urine Hyaline Casts Few /lpf (0 - 2) Urine Mucus Few (None Seen) Urine Glucose 1+ mg/dL (Normal) H Microbiology Microbiology Date/Time Source Procedure Growth Status 01/05/25 06:34 Nose MRSA Screen - Final Complete Labs and/or images reviewed: Labs reviewed by me, Image(s) reviewed by me Assessment/Plan Assessment/Plan 49-year-old male with past medical history of Coronary artery disease, CHF, diabetes mellitus, GERD, hyperlipidemia, and hypertension who presented to [facility] ED with complaint of chest pain. Patient reports that he has been experiencing right-sided chest pain, radiating to his back, associated with high blood pressure, bilateral foot numbness for the past 1 day. 01/06: Patient presenting with chest pain, have hypertension/hypertensive urgency, troponins are negative, BNP is 95, mild hypokalemia.. Cardiology consulted for ACS. Patient hypertensive urgency impression pressure up to 216/127, Cardiolite stress test showing no ischemia. Chronically reduced LV systolic function 35%. No improvement in EF over time despite GDM T, negative ischemic workup. Patient will benefit from AICD to prevent sudden cardiac . Cardiology plans to do AICD implantation currently in [employer] today with Dr. Herndon. We will continue diet and ongoing medical management as per Cardiology. Chest pain, rule out ACS, unstable angina possible HFrEF, systolic dysfunction, no improvement despite GDM T coronary artery disease, chronic systolic heart failure, hypertension, hyperlipidemia, diabetes mellitus, GERD, previous H. pylori infection, degenerative disc disease involving lumbar spine, obesity Plan: AICD placement per Cardiology 01/06/2025 Prn pain control Lipitor 40 Coreg 12.5 b.i.d. Clonidine prn SBP more than 160 Imdur 30 daily Labetalol q.2h 10 IV for SBP more than 150 Entresto b.i.d. Spironolactone 25 daily Trazodone 100 HS Tele Full code Plan discussed with: Patient Date of Service: Jan 06, 2025 Billing Provider: CAROLINA OVALLE MD Common Visit Codes: [id number] INP/OBS CARE(HIGH) CAROLINA OVALLE MD Jan 06, 2025 17:53
--- NOTE | 2025-01-06 20:29 | DVHOP2 ---
Operative Report 01/06/25 01/06/25 Dictated By: Lauro Leary MD INDICATIONS: NICMP( non ischemic cardiomyopathy). Coronary artery disease Sinus rhythm, QRS less than 120 Ms. EF 32 %, despite adequate medical therapy Proceed with implantation of AICD for primary prevention of sudden cardiac PROCEDURES: 1. Implantation of AICD lead in right ventricle, active fixation, DX from [employer], Sensing A, sense and pace V 2. Implantation of the dual chamber AICD generator, DX from [employer], MRI. 3. Fluoroscopy images and interpretation. 4. Interrogation and programming of the device. 5. Conscious sedation with fentanyl and Versed for one hour 6. Left subclavian venogram, one axillary accesses obtained PROCEDURE IN DETAILS: 1. After obtaining informed consent with explanation of risks, benefits and alternatives, the patient agreed upon the planned procedure, implantation of dual chamber AICD, Dx secondary to non ischemic cardiomyopathy. Under a standard fashion, local and systemic anesthetic, conscious sedation with fentanyl and Versed, supervised by myself, right deltopectoral area was prepped and draped. Left deltopectoral pocket was made, two axillary accesses were obtained 1. Through the first access, AICD lead was advanced into the right interve ntricular septum. Sensing was 8 mv with pacing threshold 0.5 v at ).5 ms. Impedance of 501 ohms. Sensing A 1.5-2 MV (not augmented) 3. New single-chamber dual AICD generator, DX from [employer] was connected to the lead. . The pocket was irrigated with antibiotic solution. Antibiotic powder was poured into the pocket. The skin was closed in 2 layers and at the end was stapled. CONCLUSION: 1. Status post successful implantation of dual chamber AICD, DX [employer], Device was programmed into VDI lower rate of 40 bpm 2. There was no immediate complication. LAURO LEARY MD Jan 06, 2025 20:29
[2025-01-06] MEDS: VANCOMYCIN 1GM/250ML KIT 250 ML IV SCH (21:23)
[2025-01-06] MEDS: KETOROLAC TROMETH 30 MG/ML 1ML VIAL IV ONE (21:23)
[2025-01-07] VITALS (8 sets, daily range): BP systolic 113–147; BP diastolic 80–104; PULSE 91–114; RESP 16–20; TEMP 97.4–98.1; O2SAT 91–98
[2025-01-07] MEDS: KETOROLAC TROMETH 30 MG/ML 1ML VIAL IV ONE (05:36)
--- NOTE | 2025-01-07 05:58 | DVH ---
CHEST RADIOGRAPH Indication: CXR FOR PACEMAKER/ICD LEAD PLACEMENT Technique: Single frontal view of the chest was obtained COMPARISON: XY CHEST PORTABLE on DOS: 01/06/25, XY CHEST PORTABLE on DOS: 01/03/25, XY CHEST XRAY 1 VIEW on DOS: 12/20/24, XY CHEST XRAY 1 VIEW on DOS: 12/16/24, XR CHEST 1 VIEW on DOS: 12/15/24 FINDINGS: Lines and Tubes: Left chest wall AICD. Lungs: Congestion. Pleura: No effusion. No pneumothorax. Cardiomediastinal contours: Cardiomegaly. Bones: Unremarkable IMPRESSION: Left chest wall AICD. No pneumothorax.
--- NOTE | 2025-01-07 07:16 | DVHPN2 ---
Progress Note - Dictate Date Seen: Jan 07, 2025 Medical Necessity Reason Pt with a Central, PICC or Fol: No vital signs Vital Sign Date Time Temp Pulse Resp B/P (MAP) Pulse Ox O2 Delivery O2 Flow Rate FiO2 01/07/25 05:00 97.7 93 18 136/89 (105) 92 97.7 01/06/25 20:00 Room Air* 0 21 Total Intake and Output 01/06/25 01/06/25 01/07/25 15:00 23:00 07:00 Intake Total 300 ml 400 ml Balance 300 ml 400 ml medications Current Medications Medications Dose Ordered Sig/Jorge Route Start Time Stop Time Status Last Admin Dose Admin Clonidine HCl 0.2 mg Q6HP PRN PO 01/03/25 22:15 01/05/25 14:01 0.2 MG Atorvastatin Calcium 40 mg HS PO 01/04/25 22:00 01/06/25 21:24 40 MG Sodium Chloride 10 ml Q8HR IV 01/04/25 06:00 01/07/25 05:36 10 ML Docusate Sodium 100 mg BIDPRN PRN PO 01/03/25 22:15 Acetaminophen 650 mg Q6HP PRN PO 01/03/25 22:15 Nitroglycerin 0.4 mg Q5MINP PRN SL 01/03/25 23:00 Labetalol HCl 10 mg Q2HPRN PRN IV 01/04/25 05:00 Diagnostic Test (Pha) 1 strip ACHS 01/04/25 11:30 01/07/25 05:50 1 STRIP Insulin Human Regular ACHS SC 01/04/25 11:30 01/07/25 05:49 2 UNITS Dextrose 50 ml PRN PRN IV 01/04/25 08:30 Acetaminophen/ Hydrocodone Bitart 1 tab Q4HP PRN PO 01/05/25 12:30 01/07/25 05:36 1 TAB Trazodone HCl 100 mg HS PO 01/05/25 22:00 01/06/25 21:37 100 MG Spironolactone 25 mg DAILY PO 01/05/25 15:15 01/06/25 09:20 25 MG Isosorbide Mononitrate 30 mg DAILY PO 01/05/25 15:15 01/06/25 09:14 30 MG Carvedilol 12.5 mg Q12HR PO 01/05/25 15:43 01/06/25 21:24 12.5 MG Sacubitril/ Valsartan 1 tab BID PO 01/05/25 16:15 01/06/25 21:23 1 TAB Hydralazine HCl 10 mg Q4HP PRN IV 01/05/25 16:15 Vancomycin HCl 250 ml @ 250 mls/hr Q12H IV 01/06/25 21:00 01/07/25 20:59 01/06/25 21:23 250 MLS/HR Doxycycline Monohydrate 100 mg Q12HR PO 01/07/25 10:00 laboratory and microbiology Laboratory Tests 01/06/25 05:47 Test 01/06/25 05:47 Range/Units Serum Glucose 126 H 74-106 mg/dL Assessment/Plan s/p ICD (Biotronik) placement by EP (Dr Leary) This is a 49-year old male who initially presented 01/04/2025 with reported right-sided chest discomfort and elevated blood pressures that had started approximately one day prior to initial presentation. Upon ED arrival initial patient had been found hypertensive with an initial blood pressure of 192/130mmhg with highest documented blood pressure throughout present admission of 216/127mmHg which it is of note during recent admission, renal artery stenosis and large vessel disease (aortic dissection/aneurysm) had been ruled out. At present initial 12-lead electrocardiogram had revealed sinus tachycardia at 116bpm, QRS of 116 milliseconds, QTC of 492 milliseconds, with no evidence for acute ischemic changes. Serial high sensitive troponin trend had been found normal (10, 10, 10). D-Dimer was found negative. BNP level was found normal at 95.62 which subsequent chest x-ray had revealed no evidence for acute cardiopulmonary abnormalities. UDS had revealed presence of opiates (has been administered Morphine) however no evidence for any further substances. Of note, patient does have baseline history of systolic heart failure dated back to November of 2023 which Echocardiogram 12/26/2023 had revealed an LVEF of 30%. Patient at that time had underwent subsequent ischemic workup by cardiac catheterization 12/27/2023 revealing sluggish flow and mild to moderate disease (40%) involving the mid to distal LAD with no discrete stenosis which had been treated medically. Catheterization at that time had further revealed portions of coronary anatomy with sluggish flow without discrete stenosis. Subsequent Echocardiogram 07/21/2024 had revealed an LVEF of 30-35%. Of note, patient had again presented in November of 2024 which at that time Echocardiogram 12/03/2024 had revealed an LVEF of 32%. Cardiolite Stress Test 12/03/2024 at that time had been performed and had revealed negative study for ischemia, LVEF of 17%, LV dilation, end-stage cardiomyopathy, with an inferiolateral wall infarct. Patient himself has been on GDMT for systolic heart failure dated back to time heart failure had been discovered back in November of 2023. At present, denies any shortness of breath, palpitations, dizziness, syncope, orthopnea, paroxysmal nocturnal dyspnea, dyspnea on exertion, or any further cardiac related symptoms. Cardiology services were subsequently involved by primary team request for cardiac aspects of care. Not in acute distress, no JVD. Mucousa is pink and wet. Lungs are clear to auscultation. No using accessory muscles of bleeding. Cardiac: Regular, no murmur, no gallop. Abdomen: soft. No gross mass/hepatomegaly. BS:+, No peripheral edema. Dorsalis pedis is 2+ bilateral. No gross lateralized neurologic deficit Past medical history includes coronary artery disease, non-ischemic cardiomyopathy, chronic systolic heart failure, hypertension, hyperlipidemia, diabetes mellitus, GERD, previous H. pylori infection, degenerative disc disease involving lumbar spine, and obesity. Patient endorses remote history of methamphetamine use (reports has not used in years). Denies tobacco use. Denies alcohol use. Echocardiogram: ([facility] 12/26/2023) Conclusion Severely dilated left ventricle. Severely reduced left ventricular systolic function estimated ejection fraction of 30%. There is an inferior inferolateral wall akinesia there is anterior anteroapical anterolateral wall severe hypokinesia. Moderately reduced right ventricular systolic function. Normal biatrial size and dimension. The aortic valve appears normal in structure and function. There is mild mitral valve regurgitation. There is mild tricuspid valve regurgitation. The pulmonary valve is grossly normal. No pericardial effusion. Echocardiogram: ([facility] 07/21/2024) Conclusion Left ventricle: Mild concentric left ventricle hypertrophy was seen. Left ventricle was dilated. LV EF was 30-35%. Moderate diffuse hypokinesis of left ventricular seen. Pseudo normal LV filling was observed. Right ventricle was dilated with normal systolic function. Both atria were mildly dilated. Aortic valve: Aortic valve was trileaflet. There was no aortic insufficiency disease denies cyanosis. There was mild mitral regurgitation. There was no tricuspid regurgitation. There was mild pulmonary valve insufficiency. As there was no good tricuspid regurgitation jet, right ventricular systolic pressure could not be estimated. There was trace pericardial effusion. Echocardiogram: ([facility] 12/03/2024) Conclusion MODERATELY DILATED LV. GLOBAL LV HYPOKINESIS. LV EF IS 32% AND IS MODERATELY REDUCED. NORMAL VALVES. NO EFFUSION. DILATED RV AND RA Cardiac Catheterization: ([facility] 12/27/2023) Right coronary artery comes off the right coronary cusp it is a large dominant system, it bifurcates distally into large posterior descending artery as well as valve posterolateral branch. The right coronary artery has sluggish blood flow but has no discrete stenosis. Left main comes off the left coronary cusp. It bifurcates distally into a large left anterior descending artery and medium-sized left circumflex vessel. The left main is free of any significant atherosclerotic plaquing. Left anterior descending artery it is large gives rise to a large diagonal branch. It has a sluggish flow and [id number] disease of the mid to distal part at 40%. But no discrete stenosis was noted. The left circumflex artery is medium-sized vessel it gives rise to two large obtuse marginal branches. It has mild irregularity but no significant atherosclerotic plaquing. There is little sluggish flow involving the right circumflex vessel. Cardiolite Stress Test: ([facility] 12/03/2024) revealed Nuclear Findings: negative for ischemia. lvef 17%. dilated LV. end stage cardiomyopathy. inferiolateral wall infarct Hypertensive Emergency Chest pain (ACS not considered), likely due to above Chronic systolic heart failure, NYHA class II Non-ischemic cardiomyopathy, history of History of methamphetamine abuse Coronary artery disease Hypokalemia, resolved Diabetes mellitus II Hyperlipidemia CARDIAC SUGGESTIONS FOR MANAGEMENT: Recognizing clinical presentation/objective findings, ACS at this point is not considered which chest pain itself is assessed to likely reflect underlying component of hypertensive urgency (highest documented blood pressure of 216/127mmHg). Recognizing previous cardiac catheterization findings in addition to recent Cardiolite Stress Test findings revealing no evidence for ischemia in a patient with a negative serial high sensitive troponin trend, there is no indication for repeat ischemic workup warranted at present time. Recognizing a chronically reduced LV systolic function of less than 35% confirmed by serial echocardiograms dated back to November of 2023 with most recent LVEF of 32% 12/03/2024 despite GDMT in a patient with negative ischemic workup, patient himself benefits from undergoing AICD implantation for primary prevention against sudden cardiac . Plan for tentative dual-chamber AICD implantation 12/06/[address] Leary pending labels molder availability. Patient to be consented and NPO status at midnight for tentative plan of procedure. Hold all antiplatelet/anticoagulation therapy during the interim. To proceed with optimized medical therapy, risk factor modification, and GDMT for systolic heart failure as concurrent conditions permit. To proceed with optimized blood pressure control. Will proceed to follow from a cardiac perspective. s/p ICD (Biotronik) placement by EP (Dr Leary) on 01/06/2025 Proceed to hold all antiplatelet/anticoagulation therapy Proceed with optimized medical therapy and risk factor modification Proceed with GDMT for systolic heart failure as current conditions permit Proceed with close hemodynamic surveillance Proceed with optimized blood pressure control Consider SGLT-2 inhibitor as outpatient Entresto 24-26mg twice daily Carvedilol 12.5mg twice daily Isosorbide mononitrate (LA) 30mg once daily Aldactone 25mg once daily Atorvastatin 40mg daily Vanco today Doxycycline for 1 week If stable, can go home today or tomorrow Proceed with close rate and rhythm surveillance Transfuse to sustain HGB level above 9.0 Sustain Magnesium level greater than 2.0 Sustain Potassium level greater than 4.0 Follow up renal function and electrolytes Management in telemetry Follow up credit consultant recommendations Will proceed to follow from a cardiac perspective Further recommendations per clinical progression All available diagnostic labs, EKG's, and images were personally reviewed Plan of care discussed with and agreed upon by patient / primary RN Prognosis: Guarded Thank you for allowing me to participate in the care of this patient. Further recommendations based on patients clinical course and progression, primary attending, and other consultants. Will continue to follow with primary attending. If you have any questions or concerns, please do not hesitate to contact me. A total of 55 minutes was spent reviewing the patient record, examining the patient, making a diagnostic and therapeutic plan, discussing this plan with medical personnel, following up on diagnostic studies and following the patient for clinical stability excluding any and all procedures. At least 50% of this time was spent in direct, [id number] contact. Plan discussed with: Patient, Other (nurse) ESPERANZA DORSEY MD Jan 07, 2025 07:16
[2025-01-07] MEDS: DOXYCYCLINE 100 MG TAB/CAP PO SCH (10:29)
--- NOTE | 2025-01-07 10:53 | DVHPN2 ---
Reviewed: H&P Changes from previous H/P or p: No Changes General: Per HPI Eyes: No Pain, No Vision change, No Conjunctivae inflammation, No Eyelid inflammation, No Other, No Redness ENT: No Ear pain, No Ear discharge, No Nose pain, No Nose discharge, No Nose congestion, No Mouth pain, No Mouth swelling, No Throat pain, No Throat swelling, No Other Cardiovascular: Chest Pain; No Palpitations, No Orthopnea, No Paroxysmal Noc. Dyspnea, No Edema, No Lt Headedness, No Other Respiratory: No Cough, No Dry, No Shortness of breath, No SOB with excertion, No Wheezing, No Hemoptysis, No Pleuritic Pain, No Sputum, No Other Gastrointestinal: No Nausea, No Vomiting, No Abdominal Pain, No Diarrhea, No Constipation, No Melena, No Hematochezia, No Other Genitourinary: No Dysuria, No Frequency, No Incontinence, No Hematuria, No Retention, No Other Musculoskeletal: No other, No neck pain, No shoulder pain, No arm pain; back pain; No hand pain, No leg pain, No foot pain Skin: No Rash, No Lesions, No Jaundice, No Bruising, No Other Objective Vitals Vital Signs Date Time Temp Pulse Resp B/P (MAP) Pulse Ox O2 Delivery O2 Flow Rate FiO2 01/07/25 10:30 106 142/98 01/07/25 09:00 97.4 16 95 97.4 01/06/25 20:00 Room Air* 0 21 Intake/Output Intake and Output 01/07/25 07:00 Intake Total 700 ml Balance 700 ml Intake Oral 700 ml # Voids 1 General Appearance: Alert, Oriented X3, Cooperative, No acute distress Lungs: Clear to auscultation, Normal air movement Cardiovascular: Regular rate, Normal S1, Normal S2, No murmurs Abdomen: Normal bowel sounds, Soft, No tenderness, No hepatospenomegaly Neuro: Normal gait, Normal speech, Strength at 5/5 X4 ext, Normal tone, S ensation intact, Cranial nerves 3-12 NL, Reflexes 2+ Psych/Mental Status: Mental status NL, Mood NL Medications Current Medications Medications Dose Ordered Sig/Jorge Route Start Time Stop Time Status Last Admin Dose Admin Clonidine HCl 0.2 mg Q6HP PRN PO 01/03/25 22:15 01/05/25 14:01 0.2 MG Atorvastatin Calcium 40 mg HS PO 01/04/25 22:00 01/06/25 21:24 40 MG Sodium Chloride 10 ml Q8HR IV 01/04/25 06:00 01/07/25 05:36 10 ML Docusate Sodium 100 mg BIDPRN PRN PO 01/03/25 22:15 Acetaminophen 650 mg Q6HP PRN PO 01/03/25 22:15 Nitroglycerin 0.4 mg Q5MINP PRN SL 01/03/25 23:00 Labetalol HCl 10 mg Q2HPRN PRN IV 01/04/25 05:00 Diagnostic Test (Pha) 1 strip ACHS 01/04/25 11:30 01/07/25 05:50 1 STRIP Insulin Human Regular ACHS SC 01/04/25 11:30 01/07/25 05:49 2 UNITS Dextrose 50 ml PRN PRN IV 01/04/25 08:30 Acetaminophen/ Hydrocodone Bitart 1 tab Q4HP PRN PO 01/05/25 12:30 01/07/25 10:33 1 TAB Trazodone HCl 100 mg HS PO 01/05/25 22:00 01/06/25 21:37 100 MG Spironolactone 25 mg DAILY PO 01/05/25 15:15 01/07/25 10:30 25 MG Isosorbide Mononitrate 30 mg DAILY PO 01/05/25 15:15 01/07/25 10:29 30 MG Carvedilol 12.5 mg Q12HR PO 01/05/25 15:43 01/07/25 10:30 12.5 MG Sacubitril/ Valsartan 1 tab BID PO 01/05/25 16:15 01/07/25 10:29 1 TAB Hydralazine HCl 10 mg Q4HP PRN IV 01/05/25 16:15 Vancomycin HCl 250 ml @ 250 mls/hr Q12H IV 01/06/25 21:00 01/07/25 20:59 01/07/25 10:38 250 MLS/HR Doxycycline Monohydrate 100 mg Q12HR PO 01/07/25 10:00 01/07/25 10:29 100 MG Hydromorphone HCl 0.5 mg Q4HPRN PRN IV 01/07/25 10:45 UNV Baclofen 10 mg Q8HR PO 01/07/25 14:00 UNV Lidocaine 1 patch DAILY TOP 01/08/25 10:00 UNV Laboratory Results Laboratory Tests 01/06/25 05:47 Urinalysis Test 01/03/25 16:53 Urine Color Yellow (Yellow) Urine Clarity Clear (Clear) Urine pH 6.0 (5.0-9.0) Urine Specific [place] 1.027 (1.001-1.035) Urine Protein Trace (Negative) H Urine Ketones Negative (Negative) Urine Blood Negative /uL (Negative) Urine Nitrite Negative (Negative) Urine Bilirubin Negative (Negative) Urine Urobilinogen Normal mg/dL (Negative) Urine Leukocyte Esterase Negative /uL (Negative) Urine RBC 1 /hpf (0 - 3) Urine Microscopic WBC 11 /HPF (0-3) H Urine Squamous Epithelial Cells Few /hpf (<5) Urine Bacteria None seen /hpf (None Seen) Urine Hyaline Casts Few /lpf (0 - 2) Urine Mucus Few (None Seen) Urine Glucose 1+ mg/dL (Normal) H Microbiology Microbiology Date/Time Source Procedure Growth Status 01/05/25 06:34 Nose MRSA Screen - Final Complete Labs and/or images reviewed: Labs reviewed by me, Image(s) reviewed by me Assessment/Plan Assessment/Plan 49-year-old male with past medical history of Coronary artery disease, CHF, diabetes mellitus, GERD, hyperlipidemia, and hypertension who presented to [facility] ED with complaint of chest pain. Patient reports that he has been experiencing right-sided chest pain, radiating to his back, associated with high blood pressure, bilateral foot numbness for the past 1 day. 01/06: Patient presenting with chest pain, have hypertension/hypertensive urgency, troponins are negative, BNP is 95, mild hypokalemia.. Cardiology consulted for ACS. Patient hypertensive urgency impression pressure up to 216/127, Cardiolite stress test showing no ischemia. Chronically reduced LV systolic function 35%. No improvement in EF over time despite GDM T, negative ischemic workup. Patient will benefit from AICD to prevent sudden cardiac . Cardiology plans to do AICD implantation currently in rd lab technician today with Dr. Herndon. We will continue diet and ongoing medical management as per Cardiology. 01/07: Postop day 1, patient had AICD inserted yesterday with Cardiology. Patient's HFrEF. He also has chronic abdominal pain resistant improved and he had recent treatment for infection with antibiotics. Patient is to keep his arm in sling for approximately 72 hours off per Cardiology recommendations. Today patient will have interrogation by device rep. continues to have pain at surgical site requiring IV analgesia. We will maintain admission for today. Start baclofen b.i.d. and lidocaine patch prn for chronic back pain. Diagnosis: Chest pain, likely costochondritis HFrEF, status post AICD placement 01/06/2025. ACS ruled out Chest pain, rule out ACS, unstable angina possible HFrEF, systolic dysfunction, no improvement despite GDM T coronary artery disease, chronic systolic heart failure, hypertension, hyperlipidemia, diabetes mellitus, GERD, previous H. pylori infection, degenerative disc disease involving lumbar spine, obesity Plan: AICD placement per Cardiology 01/06/2025 Prn pain control Lipitor 40 Coreg 12.5 b.i.d. Clonidine prn SBP more than 160 Imdur 30 daily Labetalol q.2h 10 IV for SBP more than 150 Entresto 24/26 b.i.d. Spironolactone 25 daily Trazodone 100 HS Tele Full code Plan discussed with: Patient My Orders Orders - CAROLINA OVALLE MD Procedure Category Date Status Time Hydromorphone PHA 01/07/25 Logged Injection (Dilaudid 10:45 Baclofen Tablet PHA 01/07/25 Logged (Liorisal Tablet) 14:00 Lidocaine 5% Topical PHA 01/08/25 Logged Patch (Lidoderm 5% 10:00 Date of Service: Jan 07, 2025 Billing Provider: CAROLINA OVALLE MD Common Visit Codes: [id number] INP/OBS CARE(HIGH) CAROLINA OVALLE MD Jan 07, 2025 10:53
--- NOTE | 2025-01-07 11:26 | ECG ---
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
--- NOTE | 2025-01-07 13:30 | ECG ---
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
[2025-01-07] MEDS ORDERED: BACLOFEN 10 MG TAB PO SCH (14:00)
[2025-01-07] MEDS: HYDROmorphone HCL 2 MG/ML VL/or syr IV PRN (14:07)
[2025-01-07] MEDS: BACLOFEN 10 MG TAB PO SCH (21:59)
[2025-01-08] VITALS (8 sets, daily range): BP systolic 113–155; BP diastolic 83–112; PULSE 102–113; RESP 17–20; TEMP 97.6–98.1; O2SAT 93–96
--- NOTE | 2025-01-08 06:15 | DVHPN2 ---
Progress Note - Dictate Date Seen: Jan 08, 2025 Medical Necessity Reason Pt with a Central, PICC or Fol: No vital signs Vital Sign Date Time Temp Pulse Resp B/P (MAP) Pulse Ox O2 Delivery O2 Flow Rate FiO2 01/08/25 05:00 97.8 109 18 141/98 (112) 96 97.8 01/07/25 20:00 Room Air* 0 21 Total Intake and Output 01/07/25 01/07/25 01/08/25 15:00 23:00 07:00 Intake Total 1000 ml 400 ml Balance 1000 ml 400 ml medications Current Medications Medications Dose Ordered Sig/Jorge Route Start Time Stop Time Status Last Admin Dose Admin Clonidine HCl 0.2 mg Q6HP PRN PO 01/03/25 22:15 01/05/25 14:01 0.2 MG Atorvastatin Calcium 40 mg HS PO 01/04/25 22:00 01/07/25 21:58 40 MG Sodium Chloride 10 ml Q8HR IV 01/04/25 06:00 01/07/25 21:59 10 ML Docusate Sodium 100 mg BIDPRN PRN PO 01/03/25 22:15 Acetaminophen 650 mg Q6HP PRN PO 01/03/25 22:15 Nitroglycerin 0.4 mg Q5MINP PRN SL 01/03/25 23:00 Labetalol HCl 10 mg Q2HPRN PRN IV 01/04/25 05:00 Diagnostic Test (Pha) 1 strip ACHS 01/04/25 11:30 01/07/25 21:59 1 STRIP Insulin Human Regular ACHS SC 01/04/25 11:30 01/07/25 11:39 3 UNITS Dextrose 50 ml PRN PRN IV 01/04/25 08:30 Acetaminophen/ Hydrocodone Bitart 1 tab Q4HP PRN PO 01/05/25 12:30 01/07/25 17:46 1 TAB Trazodone HCl 100 mg HS PO 01/05/25 22:00 01/07/25 21:59 100 MG Spironolactone 25 mg DAILY PO 01/05/25 15:15 01/07/25 10:30 25 MG Isosorbide Mononitrate 30 mg DAILY PO 01/05/25 15:15 01/07/25 10:29 30 MG Carvedilol 12.5 mg Q12HR PO 01/05/25 15:43 01/07/25 21:59 12.5 MG Sacubitril/ Valsartan 1 tab BID PO 01/05/25 16:15 01/07/25 21:58 1 TAB Hydralazine HCl 10 mg Q4HP PRN IV 01/05/25 16:15 Doxycycline Monohydrate 100 mg Q12HR PO 01/07/25 10:00 01/07/25 21:59 100 MG Hydromorphone HCl 0.5 mg Q4HPRN PRN IV 01/07/25 10:45 01/08/25 04:30 0.5 MG Lidocaine 1 patch DAILY TOP 01/08/25 10:00 Baclofen 10 mg BID PO 01/07/25 22:00 01/07/25 21:59 10 MG Ondansetron HCl 4 mg Q6HPRN PRN IV 01/07/25 20:45 laboratory and microbiology Laboratory Tests 01/06/25 05:47 Test 01/06/25 05:47 Range/Units Serum Glucose 126 H 74-106 mg/dL Assessment/Plan s/p ICD (Biotronik) placement by EP (Dr Leary). s/p its interrogation: working good This is a 49-year old male who initially presented 01/04/2025 with reported right-sided chest discomfort and elevated blood pressures that had started approximately one day prior to initial presentation. Upon ED arrival initial patient had been found hypertensive with an initial blood pressure of 192/130mmhg with highest documented blood pressure throughout present admission of 216/127mmHg which it is of note during recent admission, renal artery stenosis and large vessel disease (aortic dissection/aneurysm) had been ruled out. At present initial 12-lead electrocardiogram had revealed sinus tachycardia at 116bpm, QRS of 116 milliseconds, QTC of 492 milliseconds, with no evidence for acute ischemic changes. Serial high sensitive troponin trend had been found normal (10, 10, 10). D-Dimer was found negative. BNP level was found normal at 95.62 which subsequent chest x-ray had revealed no evidence for acute cardiopulmonary abnormalities. UDS had revealed presence of opiates (has been administered Morphine) however no evidence for any further substances. Of note, patient does have baseline history of systolic heart failure dated back to November of 2023 which Echocardiogram 12/26/2023 had revealed an LVEF of 30%. Patient at that time had underwent subsequent ischemic workup by cardiac catheterization 12/27/2023 revealing sluggish flow and mild to moderate disease (40%) involving the mid to distal LAD with no discrete stenosis which had been treated medically. Catheterization at that time had further revealed portions of coronary anatomy with sluggish flow without discrete stenosis. Subsequent Echocardiogram 07/21/2024 had revealed an LVEF of 30-35%. Of note, patient had again presented in November of 2024 which at that time Echocardiogram 12/03/2024 had revealed an LVEF of 32%. Cardiolite Stress Test 12/03/2024 at that time had been performed and had revealed negative study for ischemia, LVEF of 17%, LV dilation, end-stage cardiomyopathy, with an inferiolateral wall infarct. Patient himself has been on GDMT for systolic heart failure dated back to time heart failure had been discovered back in November of 2023. At present, denies any shortness of breath, palpitations, dizziness, syncope, orthopnea, paroxysmal nocturnal dyspnea, dyspnea on exertion, or any further cardiac related symptoms. Cardiology services were subsequently involved by primary team request for cardiac aspects of care. Not in acute distress, no JVD. Mucousa is pink and wet. Lungs are clear to auscultation. No using accessory muscles of bleeding. Cardiac: Regular, no murmur, no gallop. Abdomen: soft. No gross mass/hepatomegaly. BS:+, No peripheral edema. Dorsalis pedis is 2+ bilateral. No gross lateralized neurologic deficit Past medical history includes coronary artery disease, non-ischemic cardiomyopathy, chronic systolic heart failure, hypertension, hyperlipidemia, diabetes mellitus, GERD, previous H. pylori infection, degenerative disc disease involving lumbar spine, and obesity. Patient endorses remote history of methamphetamine use (reports has not used in years). Denies tobacco use. Denies alcohol use. Echocardiogram: ([facility] 12/26/2023) Conclusion Severely dilated left ventricle. Severely reduced left ventricular systolic function estimated ejection fraction of 30%. There is an inferior inferolateral wall akinesia there is anterior anteroapical anterolateral wall severe hypokinesia. Moderately reduced right ventricular systolic function. Normal biatrial size and dimension. The aortic valve appears normal in structure and function. There is mild mitral valve regurgitation. There is mild tricuspid valve regurgitation. The pulmonary valve is grossly normal. No pericardial effusion. Echocardiogram: ([facility] 07/21/2024) Conclusion Left ventricle: Mild concentric left ventricle hypertrophy was seen. Left ventricle was dilated. LV EF was 30-35%. Moderate diffuse hypokinesis of left ventricular seen. Pseudo normal LV filling was observed. Right ventricle was dilated with normal systolic function. Both atria were mildly dilated. Aortic valve: Aortic valve was trileaflet. There was no aortic insufficiency disease denies cyanosis. There was mild mitral regurgitation. There was no tricuspid regurgitation. There was mild pulmonary valve insufficiency. As there was no good tricuspid regurgitation jet, right ventricular systolic pressure could not be estimated. There was trace pericardial effusion. Echocardiogram: ([facility] 12/03/2024) Conclusion MODERATELY DILATED LV. GLOBAL LV HYPOKINESIS. LV EF IS 32% AND IS MODERATELY REDUCED. NORMAL VALVES. NO EFFUSION. DILATED RV AND RA Cardiac Catheterization: ([facility] 12/27/2023) Right coronary artery comes off the right coronary cusp it is a large dominant system, it bifurcates distally into large posterior descending artery as well as valve posterolateral branch. The right coronary artery has sluggish blood flow but has no discrete stenosis. Left main comes off the left coronary cusp. It bifurcates distally into a large left anterior descending artery and medium-sized left circumflex vessel. The left main is free of any significant atherosclerotic plaquing. Left anterior descending artery it is large gives rise to a large diagonal branch. It has a sluggish flow and [id number] disease of the mid to distal part at 40%. But no discrete stenosis was noted. The left circumflex artery is medium-sized vessel it gives rise to two large obtuse marginal branches. It has mild irregularity but no significant atherosclerotic plaquing. There is little sluggish flow involving the right circumflex vessel. Cardiolite Stress Test: ([facility] 12/03/2024) revealed Nuclear Findings: negative for ischemia. lvef 17%. dilated LV. end stage cardiomyopathy. inferiolateral wall infarct Hypertensive Emergency Chest pain (ACS not considered), likely due to above Chronic systolic heart failure, NYHA class II Non-ischemic cardiomyopathy, history of History of methamphetamine abuse Coronary artery disease Hypokalemia, resolved Diabetes mellitus II Hyperlipidemia CARDIAC SUGGESTIONS FOR MANAGEMENT: Recognizing clinical presentation/objective findings, ACS at this point is not considered which chest pain itself is assessed to likely reflect underlying component of hypertensive urgency (highest documented blood pressure of 216/127mmHg). Recognizing previous cardiac catheterization findings in addition to recent Cardiolite Stress Test findings revealing no evidence for ischemia in a patient with a negative serial high sensitive troponin trend, there is no indication for repeat ischemic workup warranted at present time. Recognizing a chronically reduced LV systolic function of less than 35% confirmed by serial echocardiograms dated back to November of 2023 with most recent LVEF of 32% 12/03/2024 despite GDMT in a patient with negative ischemic workup, patient himself benefits from undergoing AICD implantation for primary prevention against sudden cardiac . Plan for tentative dual-chamber AICD implantation 12/06/[address] Leary pending laboratory animal caretaker availability. Patient to be consented and NPO status at midnight for tentative plan of procedure. Hold all antiplatelet/anticoagulation therapy during the interim. To proceed with optimized medical therapy, risk factor modification, and GDMT for systolic heart failure as concurrent conditions permit. To proceed with optimized blood pressure control. Will proceed to follow from a cardiac perspective. s/p ICD (Biotronik) placement by EP (Dr Leary) on 01/06/2025 Proceed to hold all antiplatelet/anticoagulation therapy Proceed with optimized medical therapy and risk factor modification Proceed with GDMT for systolic heart failure as current conditions permit Proceed with close hemodynamic surveillance Proceed with optimized blood pressure control Consider SGLT-2 inhibitor as outpatient Entresto 24-26mg twice daily Carvedilol 12.5mg twice daily Isosorbide mononitrate (LA) 30mg once daily Aldactone 25mg once daily Atorvastatin 40mg daily Doxycycline for 1 week Cardiac holliday, is stable and can be followed as outpatient Proceed with close rate and rhythm surveillance Transfuse to sustain HGB level above 9.0 Sustain Magnesium level greater than 2.0 Sustain Potassium level greater than 4.0 Follow up renal function and electrolytes Management in telemetry Follow up solution consultant recommendations Will proceed to follow from a cardiac perspective Further recommendations per clinical progression All available diagnostic labs, EKG's, and images were personally reviewed Plan of care discussed with and agreed upon by patient / primary RN Prognosis: Guarded Thank you for allowing me to participate in the care of this patient. Further recommendations based on patients clinical course and progression, primary attending, and other consultants. Will continue to follow with primary attending. If you have any questions or concerns, please do not hesitate to contact me. A total of 55 minutes was spent reviewing the patient record, examining the patient, making a diagnostic and therapeutic plan, discussing this plan with medical personnel, following up on diagnostic studies and following the patient for clinical stability excluding any and all procedures. At least 50% of this time was spent in direct, [id number] contact. Plan discussed with: Patient, Other (nurse) ESPERANZA DORSEY MD Jan 08, 2025 06:15
[2025-01-08] MEDS: LIDOCAINE 5% TOPICAL PATCH TOP SCH (09:21)
[2025-01-08] MEDS: ONDANSETRON HCL 4 MG/2 ML VIAL IV PRN (09:40)
--- NOTE | 2025-01-08 09:50 | DVHPN2 ---
Reviewed: H&P Changes from previous H/P or p: No Changes General: Per HPI Eyes: No Pain, No Vision change, No Conjunctivae inflammation, No Eyelid inflammation, No Other, No Redness ENT: No Ear pain, No Ear discharge, No Nose pain, No Nose discharge, No Nose congestion, No Mouth pain, No Mouth swelling, No Throat pain, No Throat swelling, No Other Cardiovascular: Chest Pain; No Palpitations, No Orthopnea, No Paroxysmal Noc. Dyspnea, No Edema, No Lt Headedness, No Other Respiratory: No Cough, No Dry, No Shortness of breath, No SOB with excertion, No Wheezing, No Hemoptysis, No Pleuritic Pain, No Sputum, No Other Gastrointestinal: No Nausea, No Vomiting, No Abdominal Pain, No Diarrhea, No Constipation, No Melena, No Hematochezia, No Other Genitourinary: No Dysuria, No Frequency, No Incontinence, No Hematuria, No Retention, No Other Musculoskeletal: No other, No neck pain, No shoulder pain, No arm pain; back pain; No hand pain, No leg pain, No foot pain Skin: No Rash, No Lesions, No Jaundice, No Bruising, No Other Objective Vitals Vital Signs Date Time Temp Pulse Resp B/P (MAP) Pulse Ox O2 Delivery O2 Flow Rate FiO2 01/08/25 09:00 98.1 108 18 155/112 (126) 96 98.1 01/07/25 20:00 Room Air* 0 21 Intake/Output Intake and Output 01/08/25 07:00 Intake Total 1400 ml Balance 1400 ml Intake Oral 1400 ml # Voids 10 General Appearance: Alert, Oriented X3, Cooperative, No acute distress Lungs: Clear to auscultation, Normal air movement Cardiovascular: Regular rate, Normal S1, Normal S2, No murmurs Abdomen: Normal bowel sounds, Soft, No tenderness, No hepatospenomegaly Neuro: Normal gait, Normal speech, Strength at 5/5 X4 ext, Normal tone, S ensation intact, Cranial nerves 3-12 NL, Reflexes 2+ Psych/Mental Status: Mental status NL, Mood NL Medications Current Medications Medications Dose Ordered Sig/Jorge Route Start Time Stop Time Status Last Admin Dose Admin Clonidine HCl 0.2 mg Q6HP PRN PO 01/03/25 22:15 01/05/25 14:01 0.2 MG Atorvastatin Calcium 40 mg HS PO 01/04/25 22:00 01/07/25 21:58 40 MG Sodium Chloride 10 ml Q8HR IV 01/04/25 06:00 01/08/25 06:15 10 ML Docusate Sodium 100 mg BIDPRN PRN PO 01/03/25 22:15 Acetaminophen 650 mg Q6HP PRN PO 01/03/25 22:15 Nitroglycerin 0.4 mg Q5MINP PRN SL 01/03/25 23:00 Labetalol HCl 10 mg Q2HPRN PRN IV 01/04/25 05:00 Diagnostic Test (Pha) 1 strip ACHS 01/04/25 11:30 01/08/25 06:15 1 STRIP Insulin Human Regular ACHS SC 01/04/25 11:30 01/07/25 11:39 3 UNITS Dextrose 50 ml PRN PRN IV 01/04/25 08:30 Acetaminophen/ Hydrocodone Bitart 1 tab Q4HP PRN PO 01/05/25 12:30 01/07/25 17:46 1 TAB Trazodone HCl 100 mg HS PO 01/05/25 22:00 01/07/25 21:59 100 MG Spironolactone 25 mg DAILY PO 01/05/25 15:15 01/08/25 08:44 25 MG Isosorbide Mononitrate 30 mg DAILY PO 01/05/25 15:15 01/08/25 08:44 30 MG Carvedilol 12.5 mg Q12HR PO 01/05/25 15:43 01/08/25 08:43 12.5 MG Sacubitril/ Valsartan 1 tab BID PO 01/05/25 16:15 01/08/25 08:43 1 TAB Hydralazine HCl 10 mg Q4HP PRN IV 01/05/25 16:15 Doxycycline Monohydrate 100 mg Q12HR PO 01/07/25 10:00 01/08/25 08:44 100 MG Hydromorphone HCl 0.5 mg Q4HPRN PRN IV 01/07/25 10:45 01/08/25 08:36 0.5 MG Lidocaine 1 patch DAILY TOP 01/08/25 10:00 01/08/25 09:21 1 PATCH Baclofen 10 mg BID PO 01/07/25 22:00 01/08/25 08:43 10 MG Ondansetron HCl 4 mg Q6HPRN PRN IV 01/07/25 20:45 01/08/25 09:40 4 MG Laboratory Results Laboratory Tests 01/06/25 05:47 Urinalysis Test 01/03/25 16:53 Urine Color Yellow (Yellow) Urine Clarity Clear (Clear) Urine pH 6.0 (5.0-9.0) Urine Specific [place] 1.027 (1.001-1.035) Urine Protein Trace (Negative) H Urine Ketones Negative (Negative) Urine Blood Negative /uL (Negative) Urine Nitrite Negative (Negative) Urine Bilirubin Negative (Negative) Urine Urobilinogen Normal mg/dL (Negative) Urine Leukocyte Esterase Negative /uL (Negative) Urine RBC 1 /hpf (0 - 3) Urine Microscopic WBC 11 /HPF (0-3) H Urine Squamous Epithelial Cells Few /hpf (<5) Urine Bacteria None seen /hpf (None Seen) Urine Hyaline Casts Few /lpf (0 - 2) Urine Mucus Few (None Seen) Urine Glucose 1+ mg/dL (Normal) H Microbiology Microbiology Date/Time Source Procedure Growth Status 01/05/25 06:34 Nose MRSA Screen - Final Complete Labs and/or images reviewed: Labs reviewed by me, Image(s) reviewed by me Assessment/Plan Assessment/Plan 49-year-old male with past medical history of Coronary artery disease, CHF, diabetes mellitus, GERD, hyperlipidemia, and hypertension who presented to [facility] ED with complaint of chest pain. Patient reports that he has been experiencing right-sided chest pain, radiating to his back, associated with high blood pressure, bilateral foot numbness for the past 1 day. 01/06: Patient presenting with chest pain, have hypertension/hypertensive urgency, troponins are negative, BNP is 95, mild hypokalemia.. Cardiology consulted for ACS. Patient hypertensive urgency impression pressure up to 216/127, Cardiolite stress test showing no ischemia. Chronically reduced LV systolic function 35%. No improvement in EF over time despite GDM T, negative ischemic workup. Patient will benefit from AICD to prevent sudden cardiac . Cardiology plans to do AICD implantation currently in photographic laboratory supervisor today with Dr. Herndon. We will continue diet and ongoing medical management as per Cardiology. 01/07: Postop day 1, patient had AICD inserted yesterday with Cardiology. Patient's HFrEF. He also has chronic abdominal pain resistant improved and he had recent treatment for infection with antibiotics. Patient is to keep his arm in sling for approximately 72 hours off per Cardiology recommendations. Today patient will have interrogation by device rep. continues to have pain at surgical site requiring IV analgesia. We will maintain admission for today. Start baclofen b.i.d. and lidocaine patch prn for chronic back pain. 01/08: still nauseas and pain iv control. will monitor +1 day. likely dc tomorrow. keep tele. Diagnosis: Chest pain, likely costochondritis HFrEF, status post AICD placement 01/06/2025. ACS ruled out Chest pain, rule out ACS, unstable angina possible HFrEF, systolic dysfunction, no improvement despite GDM T coronary artery disease, chronic systolic heart failure, hypertension, hyperlipidemia, diabetes mellitus, GERD, previous H. pylori infection, degenerative disc disease involving lumbar spine, obesity Plan: AICD placement per Cardiology 01/06/2025 Prn pain control Lipitor 40 Coreg 12.5 b.i.d. Clonidine prn SBP more than 160 Imdur 30 daily Labetalol q.2h 10 IV for SBP more than 150 Entresto 24/26 b.i.d. Spironolactone 25 daily Trazodone 100 HS Tele Full code Plan discussed with: Patient My Orders Orders - CAROLINA OVALLE MD Procedure Category Date Status Time Hydromorphone PHA 01/07/25 In Process Injection (Dilaudid 10:45 Lidocaine 5% Topical PHA 01/08/25 In Process Patch (Lidoderm 5% 10:00 Baclofen Tablet PHA 01/07/25 In Process (Liorisal Tablet) 22:00 Date of Service: Jan 08, 2025 Billing Provider: CAROLINA OVALLE MD Common Visit Codes: [id number] INP/OBS CARE(HIGH) CAROLINA OVALLE MD Jan 08, 2025 09:50
--- NOTE | 2025-01-08 13:46 | DVH ---
CHEST RADIOGRAPH Indication: SOB Technique: Single frontal view of the chest was obtained Comparison: XY CHEST XRAY 1 VIEW on DOS: 01/07/25, XY CHEST PORTABLE on DOS: 01/06/25, XY CHEST PORTABLE on DOS: 01/03/25, XY CHEST XRAY 1 VIEW on DOS: 12/20/24, XY CHEST XRAY 1 VIEW on DOS: 12/16/24, XY CHEST XRAY 1 VIEW on DOS: 01/07/25 FINDINGS: Lines and Tubes: Left chest wall AICD. Lungs: Congestion. Pleura: No effusion. No pneumothorax. Cardiomediastinal contours: Cardiomegaly. Bones: Unremarkable IMPRESSION: 1. Left chest wall AICD. 2. No pneumothorax.
[2025-01-09] VITALS (8 sets, daily range): BP systolic 117–147; BP diastolic 83–102; PULSE 96–115; RESP 18; TEMP 97.6–98; O2SAT 96–98
--- NOTE | 2025-01-09 07:24 | DVHPN2 ---
Progress Note - Dictate Date Seen: Jan 09, 2025 Medical Necessity Reason Pt with a Central, PICC or Fol: No vital signs Vital Sign Date Time Temp Pulse Resp B/P (MAP) Pulse Ox O2 Delivery O2 Flow Rate FiO2 01/09/25 06:43 100 18 118/72 01/09/25 05:00 98.0 97 98.0 01/08/25 20:00 Room Air* 0 21 Total Intake and Output 01/08/25 01/08/25 01/09/25 15:00 23:00 07:00 Intake Total 836 ml 400 ml Balance 836 ml 400 ml medications Current Medications Medications Dose Ordered Sig/Jorge Route Start Time Stop Time Status Last Admin Dose Admin Clonidine HCl 0.2 mg Q6HP PRN PO 01/03/25 22:15 01/05/25 14:01 0.2 MG Atorvastatin Calcium 40 mg HS PO 01/04/25 22:00 01/08/25 21:44 40 MG Sodium Chloride 10 ml Q8HR IV 01/04/25 06:00 01/09/25 06:17 10 ML Docusate Sodium 100 mg BIDPRN PRN PO 01/03/25 22:15 Acetaminophen 650 mg Q6HP PRN PO 01/03/25 22:15 Nitroglycerin 0.4 mg Q5MINP PRN SL 01/03/25 23:00 Labetalol HCl 10 mg Q2HPRN PRN IV 01/04/25 05:00 Diagnostic Test (Pha) 1 strip ACHS 01/04/25 11:30 01/09/25 06:17 1 STRIP Insulin Human Regular ACHS SC 01/04/25 11:30 01/09/25 06:18 2 UNITS Dextrose 50 ml PRN PRN IV 01/04/25 08:30 Acetaminophen/ Hydrocodone Bitart 1 tab Q4HP PRN PO 01/05/25 12:30 01/09/25 04:48 1 TAB Trazodone HCl 100 mg HS PO 01/05/25 22:00 01/08/25 21:44 100 MG Spironolactone 25 mg DAILY PO 01/05/25 15:15 01/08/25 08:44 25 MG Isosorbide Mononitrate 30 mg DAILY PO 01/05/25 15:15 01/08/25 08:44 30 MG Carvedilol 12.5 mg Q12HR PO 01/05/25 15:43 01/08/25 21:44 12.5 MG Sacubitril/ Valsartan 1 tab BID PO 01/05/25 16:15 01/08/25 21:44 1 TAB Hydralazine HCl 10 mg Q4HP PRN IV 01/05/25 16:15 Doxycycline Monohydrate 100 mg Q12HR PO 01/07/25 10:00 01/08/25 21:44 100 MG Hydromorphone HCl 0.5 mg Q4HPRN PRN IV 01/07/25 10:45 01/09/25 06:18 0.5 MG Lidocaine 1 patch DAILY TOP 01/08/25 10:00 01/08/25 09:21 1 PATCH Baclofen 10 mg BID PO 01/07/25 22:00 01/08/25 21:44 10 MG Ondansetron HCl 4 mg Q6HPRN PRN IV 01/07/25 20:45 01/08/25 09:40 4 MG laboratory and microbiology Laboratory Tests 01/06/25 05:47 Test 01/06/25 05:47 Range/Units Serum Glucose 126 H 74-106 mg/dL Assessment/Plan s/p ICD (Biotronik) placement by EP (Dr Leary). s/p its interrogation: working good This is a 49-year old male who initially presented 01/04/2025 with reported right-sided chest discomfort and elevated blood pressures that had started approximately one day prior to initial presentation. Upon ED arrival initial patient had been found hypertensive with an initial blood pressure of 192/130mmhg with highest documented blood pressure throughout present admission of 216/127mmHg which it is of note during recent admission, renal artery stenosis and large vessel disease (aortic dissection/aneurysm) had been ruled out. At present initial 12-lead electrocardiogram had revealed sinus tachycardia at 116bpm, QRS of 116 milliseconds, QTC of 492 milliseconds, with no evidence for acute ischemic changes. Serial high sensitive troponin trend had been found normal (10, 10, 10). D-Dimer was found negative. BNP level was found normal at 95.62 which subsequent chest x-ray had revealed no evidence for acute cardiopulmonary abnormalities. UDS had revealed presence of opiates (has been administered Morphine) however no evidence for any further substances. Of note, patient does have baseline history of systolic heart failure dated back to November of 2023 which Echocardiogram 12/26/2023 had revealed an LVEF of 30%. Patient at that time had underwent subsequent ischemic workup by cardiac catheterization 12/27/2023 revealing sluggish flow and mild to moderate disease (40%) involving the mid to distal LAD with no discrete stenosis which had been treated medically. Catheterization at that time had further revealed portions of coronary anatomy with sluggish flow without discrete stenosis. Subsequent Echocardiogram 07/21/2024 had revealed an LVEF of 30-35%. Of note, patient had again presented in November of 2024 which at that time Echocardiogram 12/03/2024 had revealed an LVEF of 32%. Cardiolite Stress Test 12/03/2024 at that time had been performed and had revealed negative study for ischemia, LVEF of 17%, LV dilation, end-stage cardiomyopathy, with an inferiolateral wall infarct. Patient himself has been on GDMT for systolic heart failure dated back to time heart failure had been discovered back in November of 2023. At present, denies any shortness of breath, palpitations, dizziness, syncope, orthopnea, paroxysmal nocturnal dyspnea, dyspnea on exertion, or any further cardiac related symptoms. Cardiology services were subsequently involved by primary team request for cardiac aspects of care. Not in acute distress, no JVD. Mucousa is pink and wet. Lungs are clear to auscultation. No using accessory muscles of bleeding. Cardiac: Regular, no murmur, no gallop. Abdomen: soft. No gross mass/hepatomegaly. BS:+, No peripheral edema. Dorsalis pedis is 2+ bilateral. No gross lateralized neurologic deficit Past medical history includes coronary artery disease, non-ischemic cardiomyopathy, chronic systolic heart failure, hypertension, hyperlipidemia, diabetes mellitus, GERD, previous H. pylori infection, degenerative disc disease involving lumbar spine, and obesity. Patient endorses remote history of methamphetamine use (reports has not used in years). Denies tobacco use. Denies alcohol use. Echocardiogram: ([facility] 12/26/2023) Conclusion Severely dilated left ventricle. Severely reduced left ventricular systolic function estimated ejection fraction of 30%. There is an inferior inferolateral wall akinesia there is anterior anteroapical anterolateral wall severe hypokinesia. Moderately reduced right ventricular systolic function. Normal biatrial size and dimension. The aortic valve appears normal in structure and function. There is mild mitral valve regurgitation. There is mild tricuspid valve regurgitation. The pulmonary valve is grossly normal. No pericardial effusion. Echocardiogram: ([facility] 07/21/2024) Conclusion Left ventricle: Mild concentric left ventricle hypertrophy was seen. Left ventricle was dilated. LV EF was 30-35%. Moderate diffuse hypokinesis of left ventricular seen. Pseudo normal LV filling was observed. Right ventricle was dilated with normal systolic function. Both atria were mildly dilated. Aortic valve: Aortic valve was trileaflet. There was no aortic insufficiency disease denies cyanosis. There was mild mitral regurgitation. There was no tricuspid regurgitation. There was mild pulmonary valve insufficiency. As there was no good tricuspid regurgitation jet, right ventricular systolic pressure could not be estimated. There was trace pericardial effusion. Echocardiogram: ([facility] 12/03/2024) Conclusion MODERATELY DILATED LV. GLOBAL LV HYPOKINESIS. LV EF IS 32% AND IS MODERATELY REDUCED. NORMAL VALVES. NO EFFUSION. DILATED RV AND RA Cardiac Catheterization: ([facility] 12/27/2023) Right coronary artery comes off the right coronary cusp it is a large dominant system, it bifurcates distally into large posterior descending artery as well as valve posterolateral branch. The right coronary artery has sluggish blood flow but has no discrete stenosis. Left main comes off the left coronary cusp. It bifurcates distally into a large left anterior descending artery and medium-sized left circumflex vessel. The left main is free of any significant atherosclerotic plaquing. Left anterior descending artery it is large gives rise to a large diagonal branch. It has a sluggish flow and [id number] disease of the mid to distal part at 40%. But no discrete stenosis was noted. The left circumflex artery is medium-sized vessel it gives rise to two large obtuse marginal branches. It has mild irregularity but no significant atherosclerotic plaquing. There is little sluggish flow involving the right circumflex vessel. Cardiolite Stress Test: ([facility] 12/03/2024) revealed Nuclear Findings: negative for ischemia. lvef 17%. dilated LV. end stage cardiomyopathy. inferiolateral wall infarct Hypertensive Emergency Chest pain (ACS not considered), likely due to above Chronic systolic heart failure, NYHA class II Non-ischemic cardiomyopathy, history of History of methamphetamine abuse Coronary artery disease Hypokalemia, resolved Diabetes mellitus II Hyperlipidemia CARDIAC SUGGESTIONS FOR MANAGEMENT: Recognizing clinical presentation/objective findings, ACS at this point is not considered which chest pain itself is assessed to likely reflect underlying component of hypertensive urgency (highest documented blood pressure of 216/127mmHg). Recognizing previous cardiac catheterization findings in addition to recent Cardiolite Stress Test findings revealing no evidence for ischemia in a patient with a negative serial high sensitive troponin trend, there is no indication for repeat ischemic workup warranted at present time. Recognizing a chronically reduced LV systolic function of less than 35% confirmed by serial echocardiograms dated back to November of 2023 with most recent LVEF of 32% 12/03/2024 despite GDMT in a patient with negative ischemic workup, patient himself benefits from undergoing AICD implantation for primary prevention against sudden cardiac . Plan for tentative dual-chamber AICD implantation 12/06/[address] Leary pending labour market economist availability. Patient to be consented and NPO status at midnight for tentative plan of procedure. Hold all antiplatelet/anticoagulation therapy during the interim. To proceed with optimized medical therapy, risk factor modification, and GDMT for systolic heart failure as concurrent conditions permit. To proceed with optimized blood pressure control. Will proceed to follow from a cardiac perspective. s/p ICD (Biotronik) placement by EP (Dr Leary) on 01/06/2025 Proceed to hold all antiplatelet/anticoagulation therapy Proceed with optimized medical therapy and risk factor modification Proceed with GDMT for systolic heart failure as current conditions permit Proceed with close hemodynamic surveillance Proceed with optimized blood pressure control Consider SGLT-2 inhibitor as outpatient Entresto 24-26mg twice daily Carvedilol 12.5mg twice daily Isosorbide mononitrate (LA) 30mg once daily Aldactone 25mg once daily Atorvastatin 40mg daily Doxycycline for 1 week Cardiac holliday, is stable and can be followed as outpatient Proceed with close rate and rhythm surveillance Transfuse to sustain HGB level above 9.0 Sustain Magnesium level greater than 2.0 Sustain Potassium level greater than 4.0 Follow up renal function and electrolytes Management in telemetry Follow up data processing systems consultant recommendations Will proceed to follow from a cardiac perspective Further recommendations per clinical progression All available diagnostic labs, EKG's, and images were personally reviewed Plan of care discussed with and agreed upon by patient / primary RN Prognosis: Guarded Thank you for allowing me to participate in the care of this patient. Further recommendations based on patients clinical course and progression, primary attending, and other consultants. Will continue to follow with primary attending. If you have any questions or concerns, please do not hesitate to contact me. A total of 55 minutes was spent reviewing the patient record, examining the patient, making a diagnostic and therapeutic plan, discussing this plan with medical personnel, following up on diagnostic studies and following the patient for clinical stability excluding any and all procedures. At least 50% of this time was spent in direct, [id number] contact. Plan discussed with: Patient, Other (nurse) ESPERANZA DORSEY MD Jan 09, 2025 07:24
--- NOTE | 2025-01-09 10:17 | DVHPN2 ---
Reviewed: H&P Changes from previous H/P or p: No Changes General: Per HPI Eyes: No Pain, No Vision change, No Conjunctivae inflammation, No Eyelid inflammation, No Other, No Redness ENT: No Ear pain, No Ear discharge, No Nose pain, No Nose discharge, No Nose congestion, No Mouth pain, No Mouth swelling, No Throat pain, No Throat swelling, No Other Cardiovascular: Chest Pain; No Palpitations, No Orthopnea, No Paroxysmal Noc. Dyspnea, No Edema, No Lt Headedness, No Other Respiratory: No Cough, No Dry, No Shortness of breath, No SOB with excertion, No Wheezing, No Hemoptysis, No Pleuritic Pain, No Sputum, No Other Gastrointestinal: No Nausea, No Vomiting, No Abdominal Pain, No Diarrhea, No Constipation, No Melena, No Hematochezia, No Other Genitourinary: No Dysuria, No Frequency, No Incontinence, No Hematuria, No Retention, No Other Musculoskeletal: No other, No neck pain, No shoulder pain, No arm pain; back pain; No hand pain, No leg pain, No foot pain Skin: No Rash, No Lesions, No Jaundice, No Bruising, No Other Objective Vitals Vital Signs Date Time Temp Pulse Resp B/P (MAP) Pulse Ox O2 Delivery O2 Flow Rate FiO2 01/09/25 08:46 97.8 96 18 125/83 (97) 96 97.8 01/09/25 08:20 Room Air* 0 21 Intake/Output Intake and Output 01/09/25 07:00 Intake Total 1236 ml Balance 1236 ml Intake Oral 1236 ml # Voids 9 # Bowel Movements 1 General Appearance: Alert, Oriented X3, Cooperative, No acute distress Lungs: Clear to auscultation, Normal air movement Cardiovascular: Regular rate, Normal S1, Normal S2, No murmurs Abdomen: Normal bowel sounds, Soft, No tenderness, No hepatospenomegaly Neuro: Normal gait, Normal speech, Strength at 5/5 X4 ext, Normal tone, S ensation intact, Cranial nerves 3-12 NL, Reflexes 2+ Psych/Mental Status: Mental status NL, Mood NL Medications Current Medications Medications Dose Ordered Sig/Jorge Route Start Time Stop Time Status Last Admin Dose Admin Clonidine HCl 0.2 mg Q6HP PRN PO 01/03/25 22:15 01/05/25 14:01 0.2 MG Atorvastatin Calcium 40 mg HS PO 01/04/25 22:00 01/08/25 21:44 40 MG Sodium Chloride 10 ml Q8HR IV 01/04/25 06:00 01/09/25 06:17 10 ML Docusate Sodium 100 mg BIDPRN PRN PO 01/03/25 22:15 Acetaminophen 650 mg Q6HP PRN PO 01/03/25 22:15 Nitroglycerin 0.4 mg Q5MINP PRN SL 01/03/25 23:00 Labetalol HCl 10 mg Q2HPRN PRN IV 01/04/25 05:00 Diagnostic Test (Pha) 1 strip ACHS 01/04/25 11:30 01/09/25 06:17 1 STRIP Insulin Human Regular ACHS SC 01/04/25 11:30 01/09/25 06:18 2 UNITS Dextrose 50 ml PRN PRN IV 01/04/25 08:30 Acetaminophen/ Hydrocodone Bitart 1 tab Q4HP PRN PO 01/05/25 12:30 01/09/25 04:48 1 TAB Trazodone HCl 100 mg HS PO 01/05/25 22:00 01/08/25 21:44 100 MG Spironolactone 25 mg DAILY PO 01/05/25 15:15 01/08/25 08:44 25 MG Isosorbide Mononitrate 30 mg DAILY PO 01/05/25 15:15 01/08/25 08:44 30 MG Carvedilol 12.5 mg Q12HR PO 01/05/25 15:43 01/08/25 21:44 12.5 MG Sacubitril/ Valsartan 1 tab BID PO 01/05/25 16:15 01/08/25 21:44 1 TAB Hydralazine HCl 10 mg Q4HP PRN IV 01/05/25 16:15 Doxycycline Monohydrate 100 mg Q12HR PO 01/07/25 10:00 01/08/25 21:44 100 MG Hydromorphone HCl 0.5 mg Q4HPRN PRN IV 01/07/25 10:45 01/09/25 06:18 0.5 MG Lidocaine 1 patch DAILY TOP 01/08/25 10:00 01/08/25 09:21 1 PATCH Baclofen 10 mg BID PO 01/07/25 22:00 01/08/25 21:44 10 MG Ondansetron HCl 4 mg Q6HPRN PRN IV 01/07/25 20:45 01/09/25 09:15 4 MG Laboratory Results Laboratory Tests 01/06/25 05:47 Urinalysis Test 01/03/25 16:53 Urine Color Yellow (Yellow) Urine Clarity Clear (Clear) Urine pH 6.0 (5.0-9.0) Urine Specific [place] 1.027 (1.001-1.035) Urine Protein Trace (Negative) H Urine Ketones Negative (Negative) Urine Blood Negative /uL (Negative) Urine Nitrite Negative (Negative) Urine Bilirubin Negative (Negative) Urine Urobilinogen Normal mg/dL (Negative) Urine Leukocyte Esterase Negative /uL (Negative) Urine RBC 1 /hpf (0 - 3) Urine Microscopic WBC 11 /HPF (0-3) H Urine Squamous Epithelial Cells Few /hpf (<5) Urine Bacteria None seen /hpf (None Seen) Urine Hyaline Casts Few /lpf (0 - 2) Urine Mucus Few (None Seen) Urine Glucose 1+ mg/dL (Normal) H Microbiology Microbiology Date/Time Source Procedure Growth Status 01/05/25 06:34 Nose MRSA Screen - Final Complete Labs and/or images reviewed: Labs reviewed by me, Image(s) reviewed by me Assessment/Plan Assessment/Plan 49-year-old male with past medical history of Coronary artery disease, CHF, diabetes mellitus, GERD, hyperlipidemia, and hypertension who presented to [facility] ED with complaint of chest pain. Patient reports that he has been experiencing right-sided chest pain, radiating to his back, associated with high blood pressure, bilateral foot numbness for the past 1 day. 01/06: Patient presenting with chest pain, have hypertension/hypertensive urgency, troponins are negative, BNP is 95, mild hypokalemia.. Cardiology consulted for ACS. Patient hypertensive urgency impression pressure up to 216/127, Cardiolite stress test showing no ischemia. Chronically reduced LV systolic function 35%. No improvement in EF over time despite GDM T, negative ischemic workup. Patient will benefit from AICD to prevent sudden cardiac . Cardiology plans to do AICD implantation currently in microbiology lab analyst today with Dr. Herndon. We will continue diet and ongoing medical management as per Cardiology. 01/07: Postop day 1, patient had AICD inserted yesterday with Cardiology. Patient's HFrEF. He also has chronic abdominal pain resistant improved and he had recent treatment for infection with antibiotics. Patient is to keep his arm in sling for approximately 72 hours off per Cardiology recommendations. Today patient will have interrogation by device rep. continues to have pain at surgical site requiring IV analgesia. We will maintain admission for today. Start baclofen b.i.d. and lidocaine patch prn for chronic back pain. 01/08: still nauseas and pain iv control. will monitor +1 day. likely dc tomorrow. keep tele. 01/09: Patient arm was pulled by neighbor during neighbors fall, we will reassess leads with chest x-ray portable, we will inform Cardiology. Patient also had emesis we will do full liquid diet and continue prn antiemetics. Continue pain control with p.o. analgesia. - chest history looks benign, no wandering leads noted. Cardiology notified. Cardiology wants to continue admission for another day to re-evaluate tomorrow. Diagnosis: Chest pain, likely costochondritis HFrEF, status post AICD placement 01/06/2025. ACS ruled out Chest pain, rule out ACS, unstable angina possible HFrEF, systolic dysfunction, no improvement despite GDM T coronary artery disease, chronic systolic heart failure, hypertension, hyperlipidemia, diabetes mellitus, GERD, previous H. pylori infection, degenerative disc disease involving lumbar spine, obesity Plan: AICD placement per Cardiology 01/06/2025 Prn pain control Lipitor 40 Coreg 12.5 b.i.d. Clonidine prn SBP more than 160 Imdur 30 daily Labetalol q.2h 10 IV for SBP more than 150 Entresto / b.i.d. Spironolactone 25 daily Trazodone 100 HS Tele Full code Plan discussed with: Patient My Orders Orders - CAROLINA OVALLE MD Procedure Category Date Status Time Chest Xray 1 View XY 01/08/25 Resulted 13:02 Date of Service: Jan 09, 2025 Billing Provider: CAROLINA OVALLE MD Common Visit Codes: [id number] INP/OBS CARE(HIGH) CAROLINA OVALLE MD Jan 09, 2025 10:17
--- NOTE | 2025-01-09 10:51 | DVH ---
EXAM: XY CHEST PORTABLE Indication: REASSESS AICD Technique: Single frontal view of the chest was obtained Comparison: XY CHEST XRAY 1 VIEW on DOS: 01/08/25, XY CHEST XRAY 1 VIEW on DOS: 01/07/25, XY CHEST PORTABLE on DOS: 01/06/25, XY CHEST PORTABLE on DOS: 01/03/25, XY CHEST XRAY 1 VIEW on DOS: 12/20/24 FINDINGS: Lines and Tubes: Cardiac pacemaker projects over the left chest wall. Lungs: No focal consolidation. Pleura: No effusion. No pneumothorax. Cardiomediastinal contours: Unremarkable Bones: No acute osseous abnormality. IMPRESSION: No acute cardiopulmonary disease.
[2025-01-10] VITALS (8 sets, daily range): BP systolic 126–134; BP diastolic 86–96; PULSE 99–110; RESP 16–20; TEMP 36.9; O2SAT 92–96
--- NOTE | 2025-01-10 06:09 | DVHPN2 ---
Progress Note - Dictate Date Seen: Jan 10, 2025 Medical Necessity Reason Pt with a Central, PICC or Fol: No vital signs Vital Sign Date Time Temp Pulse Resp B/P (MAP) Pulse Ox O2 Delivery O2 Flow Rate FiO2 01/10/25 04:57 97.8 99 18 130/86 (101) 92 97.8 01/09/25 08:20 Room Air* 0 21 Total Intake and Output 01/09/25 01/09/25 01/10/25 15:00 23:00 07:00 Intake Total 750 ml 550 ml Balance 750 ml 550 ml medications Current Medications Medications Dose Ordered Sig/Jorge Route Start Time Stop Time Status Last Admin Dose Admin Clonidine HCl 0.2 mg Q6HP PRN PO 01/03/25 22:15 01/05/25 14:01 0.2 MG Atorvastatin Calcium 40 mg HS PO 01/04/25 22:00 01/09/25 23:43 40 MG Sodium Chloride 10 ml Q8HR IV 01/04/25 06:00 01/10/25 00:36 10 ML Docusate Sodium 100 mg BIDPRN PRN PO 01/03/25 22:15 Acetaminophen 650 mg Q6HP PRN PO 01/03/25 22:15 Nitroglycerin 0.4 mg Q5MINP PRN SL 01/03/25 23:00 Labetalol HCl 10 mg Q2HPRN PRN IV 01/04/25 05:00 Diagnostic Test (Pha) 1 strip ACHS 01/04/25 11:30 01/09/25 22:00 1 STRIP Insulin Human Regular ACHS SC 01/04/25 11:30 01/10/25 00:37 2 UNITS Dextrose 50 ml PRN PRN IV 01/04/25 08:30 Acetaminophen/ Hydrocodone Bitart 1 tab Q4HP PRN PO 01/05/25 12:30 01/09/25 04:48 1 TAB Trazodone HCl 100 mg HS PO 01/05/25 22:00 01/09/25 23:44 100 MG Spironolactone 25 mg DAILY PO 01/05/25 15:15 01/09/25 10:19 25 MG Isosorbide Mononitrate 30 mg DAILY PO 01/05/25 15:15 01/09/25 10:19 30 MG Carvedilol 12.5 mg Q12HR PO 01/05/25 15:43 01/09/25 23:43 12.5 MG Sacubitril/ Valsartan 1 tab BID PO 01/05/25 16:15 01/09/25 23:42 1 TAB Hydralazine HCl 10 mg Q4HP PRN IV 01/05/25 16:15 Doxycycline Monohydrate 100 mg Q12HR PO 01/07/25 10:00 01/09/25 23:43 100 MG Hydromorphone HCl 0.5 mg Q4HPRN PRN IV 01/07/25 10:45 01/10/25 02:22 0.5 MG Lidocaine 1 patch DAILY TOP 01/08/25 10:00 01/09/25 10:19 1 PATCH Baclofen 10 mg BID PO 01/07/25 22:00 01/09/25 23:42 10 MG Ondansetron HCl 4 mg Q6HPRN PRN IV 01/07/25 20:45 01/09/25 09:15 4 MG laboratory and microbiology Laboratory Tests 01/06/25 05:47 Test 01/06/25 05:47 Range/Units Serum Glucose 126 H 74-106 mg/dL Assessment/Plan s/p ICD (Biotronik) placement by EP (Dr Leary). s/p its interrogation: working good This is a 49-year old male who initially presented 01/04/2025 with reported right-sided chest discomfort and elevated blood pressures that had started approximately one day prior to initial presentation. Upon ED arrival initial patient had been found hypertensive with an initial blood pressure of 192/130mmhg with highest documented blood pressure throughout present admission of 216/127mmHg which it is of note during recent admission, renal artery stenosis and large vessel disease (aortic dissection/aneurysm) had been ruled out. At present initial 12-lead electrocardiogram had revealed sinus tachycardia at 116bpm, QRS of 116 milliseconds, QTC of 492 milliseconds, with no evidence for acute ischemic changes. Serial high sensitive troponin trend had been found normal (10, 10, 10). D-Dimer was found negative. BNP level was found normal at 95.62 which subsequent chest x-ray had revealed no evidence for acute cardiopulmonary abnormalities. UDS had revealed presence of opiates (has been administered Morphine) however no evidence for any further substances. Of note, patient does have baseline history of systolic heart failure dated back to November of 2023 which Echocardiogram 12/26/2023 had revealed an LVEF of 30%. Patient at that time had underwent subsequent ischemic workup by cardiac catheterization 12/27/2023 revealing sluggish flow and mild to moderate disease (40%) involving the mid to distal LAD with no discrete stenosis which had been treated medically. Catheterization at that time had further revealed portions of coronary anatomy with sluggish flow without discrete stenosis. Subsequent Echocardiogram 07/21/2024 had revealed an LVEF of 30-35%. Of note, patient had again presented in November of 2024 which at that time Echocardiogram 12/03/2024 had revealed an LVEF of 32%. Cardiolite Stress Test 12/03/2024 at that time had been performed and had revealed negative study for ischemia, LVEF of 17%, LV dilation, end-stage cardiomyopathy, with an inferiolateral wall infarct. Patient himself has been on GDMT for systolic heart failure dated back to time heart failure had been discovered back in November of 2023. At present, denies any shortness of breath, palpitations, dizziness, syncope, orthopnea, paroxysmal nocturnal dyspnea, dyspnea on exertion, or any further cardiac related symptoms. Cardiology services were subsequently involved by primary team request for cardiac aspects of care. Not in acute distress, no JVD. Mucousa is pink and wet. Lungs are clear to auscultation. No using accessory muscles of bleeding. Cardiac: Regular, no murmur, no gallop. Abdomen: soft. No gross mass/hepatomegaly. BS:+, No peripheral edema. Dorsalis pedis is 2+ bilateral. No gross lateralized neurologic deficit Past medical history includes coronary artery disease, non-ischemic cardiomyopathy, chronic systolic heart failure, hypertension, hyperlipidemia, diabetes mellitus, GERD, previous H. pylori infection, degenerative disc disease involving lumbar spine, and obesity. Patient endorses remote history of methamphetamine use (reports has not used in years). Denies tobacco use. Denies alcohol use. Echocardiogram: ([facility] 12/26/2023) Conclusion Severely dilated left ventricle. Severely reduced left ventricular systolic function estimated ejection fraction of 30%. There is an inferior inferolateral wall akinesia there is anterior anteroapical anterolateral wall severe hypokinesia. Moderately reduced right ventricular systolic function. Normal biatrial size and dimension. The aortic valve appears normal in structure and function. There is mild mitral valve regurgitation. There is mild tricuspid valve regurgitation. The pulmonary valve is grossly normal. No pericardial effusion. Echocardiogram: ([facility] 07/21/2024) Conclusion Left ventricle: Mild concentric left ventricle hypertrophy was seen. Left ventricle was dilated. LV EF was 30-35%. Moderate diffuse hypokinesis of left ventricular seen. Pseudo normal LV filling was observed. Right ventricle was dilated with normal systolic function. Both atria were mildly dilated. Aortic valve: Aortic valve was trileaflet. There was no aortic insufficiency disease denies cyanosis. There was mild mitral regurgitation. There was no tricuspid regurgitation. There was mild pulmonary valve insufficiency. As there was no good tricuspid regurgitation jet, right ventricular systolic pressure could not be estimated. There was trace pericardial effusion. Echocardiogram: ([facility] 12/03/2024) Conclusion MODERATELY DILATED LV. GLOBAL LV HYPOKINESIS. LV EF IS 32% AND IS MODERATELY REDUCED. NORMAL VALVES. NO EFFUSION. DILATED RV AND RA Cardiac Catheterization: ([facility] 12/27/2023) Right coronary artery comes off the right coronary cusp it is a large dominant system, it bifurcates distally into large posterior descending artery as well as valve posterolateral branch. The right coronary artery has sluggish blood flow but has no discrete stenosis. Left main comes off the left coronary cusp. It bifurcates distally into a large left anterior descending artery and medium-sized left circumflex vessel. The left main is free of any significant atherosclerotic plaquing. Left anterior descending artery it is large gives rise to a large diagonal branch. It has a sluggish flow and [id number] disease of the mid to distal part at 40%. But no discrete stenosis was noted. The left circumflex artery is medium-sized vessel it gives rise to two large obtuse marginal branches. It has mild irregularity but no significant atherosclerotic plaquing. There is little sluggish flow involving the right circumflex vessel. Cardiolite Stress Test: ([facility] 12/03/2024) revealed Nuclear Findings: negative for ischemia. lvef 17%. dilated LV. end stage cardiomyopathy. inferiolateral wall infarct Hypertensive Emergency Chest pain (ACS not considered), likely due to above Chronic systolic heart failure, NYHA class II Non-ischemic cardiomyopathy, history of History of methamphetamine abuse Coronary artery disease Hypokalemia, resolved Diabetes mellitus II Hyperlipidemia CARDIAC SUGGESTIONS FOR MANAGEMENT: Recognizing clinical presentation/objective findings, ACS at this point is not considered which chest pain itself is assessed to likely reflect underlying component of hypertensive urgency (highest documented blood pressure of 216/127mmHg). Recognizing previous cardiac catheterization findings in addition to recent Cardiolite Stress Test findings revealing no evidence for ischemia in a patient with a negative serial high sensitive troponin trend, there is no indication for repeat ischemic workup warranted at present time. Recognizing a chronically reduced LV systolic function of less than 35% confirmed by serial echocardiograms dated back to November of 2023 with most recent LVEF of 32% 12/03/2024 despite GDMT in a patient with negative ischemic workup, patient himself benefits from undergoing AICD implantation for primary prevention against sudden cardiac . Plan for tentative dual-chamber AICD implantation 12/06/[address] Leary pending dental laboratory technician apprentice availability. Patient to be consented and NPO status at midnight for tentative plan of procedure. Hold all antiplatelet/anticoagulation therapy during the interim. To proceed with optimized medical therapy, risk factor modification, and GDMT for systolic heart failure as concurrent conditions permit. To proceed with optimized blood pressure control. Will proceed to follow from a cardiac perspective. s/p ICD (Biotronik) placement by EP (Dr Leary) on 01/06/2025 Proceed to hold all antiplatelet/anticoagulation therapy Proceed with optimized medical therapy and risk factor modification Proceed with GDMT for systolic heart failure as current conditions permit Proceed with close hemodynamic surveillance Proceed with optimized blood pressure control Consider SGLT-2 inhibitor as outpatient Entresto 24-26mg twice daily Carvedilol 12.5mg twice daily Isosorbide mononitrate (LA) 30mg once daily Aldactone 25mg once daily Atorvastatin 40mg daily Doxycycline for 1 week Cardiac holliday, is stable and can be followed as outpatient Proceed with close rate and rhythm surveillance Transfuse to sustain HGB level above 9.0 Sustain Magnesium level greater than 2.0 Sustain Potassium level greater than 4.0 Follow up renal function and electrolytes Management in telemetry Follow up store sales consultant recommendations Will proceed to follow from a cardiac perspective Further recommendations per clinical progression All available diagnostic labs, EKG's, and images were personally reviewed Plan of care discussed with and agreed upon by patient / primary RN Prognosis: Guarded Thank you for allowing me to participate in the care of this patient. Further recommendations based on patients clinical course and progression, primary attending, and other consultants. Will continue to follow with primary attending. If you have any questions or concerns, please do not hesitate to contact me. A total of 55 minutes was spent reviewing the patient record, examining the patient, making a diagnostic and therapeutic plan, discussing this plan with medical personnel, following up on diagnostic studies and following the patient for clinical stability excluding any and all procedures. At least 50% of this time was spent in direct, [id number] contact. Dietary Evaluation Review Comments: CCHO-60 Cardiac Diet, texture as tolerated Weight Management Expected Outcomes/Goals: Free from N&V, appetite improves, gradual wt loss Plan discussed with: Patient, Other (nurse) ESPERANZA DORSEY MD Jan 10, 2025 06:09
--- NOTE | 2025-01-10 11:05 | DVHDS2 ---
Discharge Summary Date of Admission Jan 03, 2025 at 22:46 Date of Discharge: Jan 10, 2025 Labs/Diagnostic Data: Laboratory Results Test 01/10/25 06:12 01/06/25 05:47 01/05/25 13:23 01/05/25 06:40 POC Glucose 110 mg/dl (70-106) White Blood Count 5.3 10^3/uL (4.4-10.8) Red Blood Count 4.33 10^6/uL (4.5-5.90) Hemoglobin 13.3 g/dL (13.5-17.5) Hematocrit 37.8 % (41.0-53.0) Mean Corpuscular Volume 87.4 fL (80.0-100.0) Mean Corpuscular Hemoglobin 30.8 pg (28.0-32.0) Mean Corpuscular Hemoglobin Concent 35.3 g/dL (32.0-36.0) Red Cell Distribution Width 14.6 % (11.8-14.3) Platelet Count 211 10^3/uL (140-450) Mean Platelet Volume 8.3 fL (6.9-10.8) Neutrophils (%) (Auto) 52.1 % (37.0-80.0) Lymphocytes (%) (Auto) 29.5 % (10.0-50.0) Monocytes (%) (Auto) 14.0 % (0.0-12.0) Eosinophils (%) (Auto) 3.7 % (0.0-7.0) Basophils (%) (Auto) 0.7 % (0.0-2.0) Neutrophils # (Auto) 2.7 10 ^3/uL (1.6-8.6) Lymphocytes # (Auto) 1.6 10 ^3/uL (0.4-5.4) Monocytes # (Auto) 0.7 10 ^3/uL (0-1.3) Eosinophils # (Auto) 0.2 10 ^3/uL (0-0.8) Basophils # (Auto) 0 10 ^3/uL (0-0.2) Nucleated Red Blood Cells 0.2 % Sodium Level 141 mmol/L (136-145) Potassium Level 4.1 mmol/L (3.5-5.1) Chloride Level 103 mmol/L (98-107) Carbon Dioxide Level 30 mmol/L (20-31) Anion Gap 8 (5-15) Blood Urea Nitrogen 16 mg/dL (9-23) Creatinine 1.21 mg/dL (0.700-1.30) Glomerular Filtration Rate Calc 73 mL/min (>90) BUN/Creatinine Ratio 13.2 (10.0-20.0) Serum Glucose 126 mg/dL (74-106) Calcium Level 9.2 mg/dL (8.7-10.4) Prothrombin Time 11.1 sec (9.3-11.8) Prothrombin Time INR 1.05 (0.9-1.15) Activated Partial Thromboplast Time 29.1 SEC (24.5-34.5) D-Dimer, Quantitative 0.22 mg/L FEU (0.0-0.49) Total Bilirubin 0.9 mg/dL (0.2-1.0) Aspartate Amino Transferase (AST) 26 U/L (13-40) Alanine Aminotransferase (ALT) 26 U/L (7-40) Alkaline Phosphatase 84 U/L (46-116) Total Protein 7.0 g/dL (5.7-8.2) Albumin 4.1 g/dL (3.2-4.8) Triglycerides Level 152 mg/dL (< 150) Cholesterol Level 130 mg/dL (< 200) LDL Cholesterol 78 mg/dL (< 100) HDL Cholesterol 36 mg/dL (40-59) Urine Opiates Screen Pos (NEGATIVE) Urine Fentanyl Screen Neg (NEGATIVE) Urine Barbiturates Screen Neg (NEGATIVE) Urine Phencyclidine Screen Neg (NEGATIVE) Urine Amphetamines Screen Neg (NEGATIVE) Urine Benzodiazepines Screen Neg (NEGATIVE) Urine Cocaine Screen Neg (NEGATIVE) Urine Cannabinoids Screen Neg (NEGATIVE) Test 01/03/25 19:08 01/03/25 16:53 01/03/25 16:32 Troponin I High Sensitivity 10 ng/L (</=54) Urine Color Yellow (Yellow) Urine Clarity Clear (Clear) Urine pH 6.0 (5.0-9.0) Urine Specific [place] 1.027 (1.001-1.035) Urine Protein Trace (Negative) Urine Ketones Negative (Negative) Urine Blood Negative /uL (Negative) Urine Nitrite Negative (Negative) Urine Bilirubin Negative (Negative) Urine Urobilinogen Normal mg/dL (Negative) Urine Leukocyte Esterase Negative /uL (Negative) Urine RBC 1 /hpf (0 - 3) Urine Microscopic WBC 11 /HPF (0-3) Urine Squamous Epithelial Cells Few /hpf (<5) Urine Bacteria None seen /hpf (None Seen) Urine Hyaline Casts Few /lpf (0 - 2) Urine Mucus Few (None Seen) Urine Glucose 1+ mg/dL (Normal) B-Type Natriuretic Peptide 95.62 pg/mL (0-100) Other Laboratory Tests 01/06/25 05:47 Brief Hx & Hospital Course: 49-year-old male with past medical history of Coronary artery disease, CHF, diabetes mellitus, GERD, hyperlipidemia, and hypertension who presented to [facility] ED with complaint of chest pain. Patient reports that he has been experiencing right-sided chest pain, radiating to his back, associated with high blood pressure, bilateral foot numbness for the past 1 day. 01/06: Patient presenting with chest pain, have hypertension/hypertensive urgency, troponins are negative, BNP is 95, mild hypokalemia.. Cardiology consulted for ACS. Patient hypertensive urgency impression pressure up to 216/127, Cardiolite stress test showing no ischemia. Chronically reduced LV systolic function 35%. No improvement in EF over time despite GDM T, negative ischemic workup. Patient will benefit from AICD to prevent sudden cardiac . Cardiology plans to do AICD implantation currently in blender laborer today with Dr. Herndon. We will continue diet and ongoing medical management as per Cardiology. 01/07: Postop day 1, patient had AICD inserted yesterday with Cardiology. Patient's HFrEF. He also has chronic abdominal pain resistant improved and he had recent treatment for infection with antibiotics. Patient is to keep his arm in sling for approximately 72 hours off per Cardiology recommendations. Today patient will have interrogation by device rep. continues to have pain at surgical site requiring IV analgesia. We will maintain admission for today. Start baclofen b.i.d. and lidocaine patch prn for chronic back pain. 01/08: still nauseas and pain iv control. will monitor +1 day. likely dc tomorrow. keep tele. 01/09: Patient arm was pulled by neighbor during neighbors fall, we will reassess leads with chest x-ray portable, we will inform Cardiology. Patient also had emesis we will do full liquid diet and continue prn antiemetics. Continue pain control with p.o. analgesia. - chest history looks benign, no wandering leads noted. Cardiology notified. Cardiology wants to continue admission for another day to re-evaluate tomorrow. 01/10: Patient has been cleared by Cardiology this morning. Stable for discharge. Patient needs to continue 4 days more of antibiotics doxycycline 100 mg twice daily, 4 days. We will send patient home with 5 days of baclofen 10 mg twice daily as a muscle relaxant. Patient to follow up with Cardiology on upcoming Monday. Vital signs stable, patient ambulating, tolerating p.o. stable for discharge. Diagnosis: HFrEF, systolic dysfunction, no improvement despite GDMT, s/p AICD placement 01/06/2025 Chest pain, unstable angina possible ACS ruled out coronary artery disease, hypertension, hyperlipidemia, diabetes mellitus, GERD, previous H. pylori infection, degenerative disc disease involving lumbar spine, obesity Plan: -Doxycycline 100 mg twice daily for 4 days -Take baclofen 10 mg twice daily for 5 days -Continue other home medications -follow up with Cardiology on upcoming Monday -Follow up with PCP to review discharge Condition at Discharge: Fair Final Diagnosis/Problems List HFrEF, systolic dysfunction, no improvement despite GDMT, s/p AICD placement 01/06/2025 Chest pain, unstable angina possible ACS ruled out coronary artery disease, hypertension, hyperlipidemia, diabetes mellitus, GERD, previous H. pylori infection, degenerative disc disease involving lumbar spine, obesity Discharge Disposition: Home Discharge Instruct/Medications Scheduled Amlodipine Besylate (Amlodipine Besylate), 1 TAB PO DAILY Atorvastatin Calcium (Lipitor), 1 TAB PO DAILY, (Reported) Carvedilol (Carvedilol), 1 TAB PO BID Carvedilol (Coreg), 1 TAB PO BID Clonidine Hydrochloride (Clonidine Hcl), 1 TAB PO BIDPRN, (Reported) Duloxetine Hcl (Cymbalta), 1 CAP PO DAILY Empagliflozin (Jardiance), 10 MG PO DAILY Empagliflozin (Jardiance), 10 MG PO DAILY Ergocalciferol (Vitamin D), 1 CAP PO QWEEKLY, (Reported) Furosemide (Furosemide), 1 TAB PO BID, (Reported) Gabapentin (Gabapentin), 3 CAP PO TID, (Reported) Hydroxyzine Hcl (Hydroxyzine Hcl), 1 TAB PO DAILY, (Reported) Insulin Glargine (Lantus), 35 UNITS SC BID@1000,2200 Insulin Lispro (Humalog Kwikpen), 25 UNITS SC AC, (Reported) Linaclotide Base (Linzess), 1 CAP PO DAILY, (Reported) Lisinopril (Lisinopril), 1 TAB PO DAILY Lisinopril (Lisinopril), 1 TAB PO DAILY Metoclopramide HCl (Metoclopramide Hydrochlor), 1 TAB PO TID, (Reported) Nitroglycerin (Ntrostat Sublingual), 0.4 MG SL PRN, (Reported) Omeprazole (Gnp Omeprazole), 1 TAB PO DAILY, (Reported) Pantoprazole Sodium Sesquihydr (Pantoprazole Sodium), 1 TAB PO BID, (Reported) Polyethylene Glycol 3350 (Gnp Clearlax), 17 GM PO DAILY, (Reported) Senna (Senna-Time), 2 TAB PO DAILY, (Reported) Sildenafil Citrate (Sildenafil Citrate), 1 TAB PO DAILY, (Reported) Spironolactone (Spironolactone), 1 TAB PO DAILY, (Reported) Spironolactone (Aldactone), 25 MG PO DAILY Sucralfate (Carafate Susp), 10 ML PO BID, (Reported) Tirzepatide (Mounjaro), 7.5 MG SUBCUT QWEEKLY, (Reported) Scheduled PRN Hydrocodone-Acetaminophen (Hydrocodone Bitartrate/AC 5-325 mg), 1 TAB PO Q8HP PRN Hydrocodone-Acetaminophen (Hydrocodone Bitartrate/AC 5-325 mg), 1 TAB PO Q6HP PRN Trazodone Hcl (Trazodone Hcl), 1 TAB PO QHSP PRN for PSYCHOPHYSIOLOGIC INSOMNIA Discharge Statement: "Patient was advised to return to the ER or call 911 if any headaches, dizziness, shortness of breath, chest pain, abdominal pain, bleeding, fevers, or worsening of medical condition. Patient was counseled about treatment plan, medications, possible side effects, patientverbalized understanding. All questions were answered to the best of my ability. This discharge took greater then 30 minutes in planning, reviewing documentation, counseling the patient, and discussing with other team members." ASSESSMENT ASSESSMENT Assessment Date of Service: Jan 10, 2025 Billing Provider: CAROLINA OVALLE MD Common Visit Codes: 08564-GHT/OBS DISCH DAY >30min CAROLINA OVALLE MD Jan 10, 2025 11:05
[2025-01-10] MEDS: methylPREDNISolone SOD SUCC 40 MG/ML VL IV ONE (11:35)
[2025-01-10] MEDS ORDERED: BACL10TA PO (12:57)
[2025-01-10] MEDS ORDERED: DOXY100C79 PO (12:57)
--- NOTE | 2025-01-14 06:28 | ECG ---
[facility] Test Date: 2025-01-03 Test Time: 16:36:43 Pat Name: EULOGIO LAUGHLIN Department: Room: [facility]3T B Gender: M Resolution Analyst: ESTEFANIA : 1975 Requested By: MARYANA CALIX Order Number: [id number] Reading MD: Edouard Cifuentes Measurements Intervals [place] Rate: 116 P: 68 MS: 161 QRS: -11 QRSD: 116 T: 0 QT: 354 QTc: 492 Interpretive Statements Sinus tachycardia Probable left ventricular hypertrophy Borderline T abnormalities, inferior leads Borderline prolonged QT interval Electronically Signed On 01-14-2025 17:33:59 PST by Edouard Cifuentes Please click the below link to view image of tracing.
== END 2025-01-10 14:23 | disposition home or self-care (01) | DRG 179 ==
LOC: ER 16:15 → OVERFLOW 22:46 → TELE-WESTW 01-04 16:55
PROVIDERS: ADMIT Student in an Organized Health Care Education/Training Program; ATTEND Student in an Organized Health Care Education/Training Program
PROC: 0JH608Z Insertion of Defibrillator Generator into Chest Subcutaneous Tissue and Fascia, Open Approach (ICD-10-PCS; principal; 2025-01-06)
PROC: 02HK3KZ Insertion of Defibrillator Lead into Right Ventricle, Percutaneous Approach (ICD-10-PCS; 2025-01-06)
PROC: B517YZZ Fluoroscopy of Left Subclavian Vein using Other Contrast (ICD-10-PCS; 2025-01-06)
DX: I25.110 Atherosclerotic heart disease of native coronary artery with unstable angina pectoris (principal); I16.1 Hypertensive emergency; I50.22 Chronic systolic (congestive) heart failure; I11.0 Hypertensive heart disease with heart failure; E11.65 Type 2 diabetes mellitus with hyperglycemia; E66.9 Obesity, unspecified; I37.1 Nonrheumatic pulmonary valve insufficiency; I42.8 Other cardiomyopathies; K21.9 Gastro-esophageal reflux disease without esophagitis; G89.29 Other chronic pain; E87.6 Hypokalemia; M48.061 Spinal stenosis, lumbar region without neurogenic claudication; M51.369 Other intervertebral disc degeneration, lumbar region without mention of lumbar back pain or lower extremity pain; E78.5 Hyperlipidemia, unspecified; Z80.7 Family history of other malignant neoplasms of lymphoid, hematopoietic and related tissues; Z79.899 Other long term (current) drug therapy; Z79.4 Long term (current) use of insulin; Z68.34 Body mass index [BMI] 34.0-34.9, adult; Z86.19 Personal history of other infectious and parasitic diseases
CPT/HCPCS: 33249; 36012; 36415; 71045; 80048; 80053; 80061; 80307; 81001; 82962; 83880; 84484; 85025; 85379; 85610; 85730; 86850; 86900; 86901; 87081; 93005; 96374; 96375; G0378; J1815; J1885; J2250; J2405; J3490; Q9967